=== PATIENT | female | born 1965 | race Caucasian/White ===

== ENCOUNTER → 2017-09-26 16:03 | Outpatient (CLI) | payer OTHER, SELFPAY ==
[2017-10-03 11:53] LABS: HPV Reflexed? NOT INDICATED
== END ==
PROVIDERS: Visit Provider Obstetrics & Gynecology
DX: Z12.4 Encounter for screening for malignant neoplasm of cervix (principal)
CPT/HCPCS: 88175; G0145

== ENCOUNTER → 2017-10-30 06:58 | Outpatient (CLI) | payer OTHER, SELFPAY ==
--- NOTE | 2017-10-30 07:05 | BI_ITS ---
MAMMOGRAPHY - BILATERAL SCREENING 3-D NICK SYNTHESIS REASON FOR EXAM: Female, 52 years old. Bilateral Screening 3-D tomosynthesis PERTINENT HISTORY: No significant family history. TECHNIQUE: 2-D mammograms and 3-D Nick synthesis of the breast (s) were performed. CAD was performed. COMPARISON: October 26, 2016. FINDINGS: The breast composition is heterogeneously dense that can obscure small breast masses. Scattered benign calcifications are seen. No dense spiculated masses or suspicious microcalcifications are identified. No architectural distortion is identified. There is no skin thickening or retraction. There has been no significant change since the prior study. BI/SCREENING MAMM (CAD), BILAT IMPRESSION: No mammographic signs of malignancy. Routine yearly mammograms recommended. ASSESSMENT CATEGORY: BIRADS Category 2: Benign. A letter regarding these results will be sent to the patient by the facility within 30 days. FOLLOW UP RECOMMENDATION: Yearly follow up mammogram recommended. (A) Approximately 10% of breast cancers are not detected by mammography. A normal mammogram should not delay biopsy of a clinically suspicious abnormality. Electronically Signed: Dayron Carroll MD at 8:58 EDT , Service support ,
== END ==
PROVIDERS: Family Provider Family Medicine; PCP Family Medicine; Visit Provider Obstetrics & Gynecology
DX: Z12.31 Encounter for screening mammogram for malignant neoplasm of breast (principal)
CPT/HCPCS: 77063; 77067

== ENCOUNTER → 2017-11-23 16:22 | Outpatient (CLI) | payer OTHER, SELFPAY ==
[2017-11-23 17:35] LABS: Hemoglobin A1c 5.7 % (4.2-6.3)
[2017-11-23 17:36] LABS: Absolute Lymphocyte Count 2.25 X10^3/ul (0.83-4.51); Absolute Neutrophil Count 6.9 X10^3/uL (2.0-7.7); Basophil# 0.02 X10^3/uL; Basophil% 0.2 % (0-1); Eosinophil# 0.13 X10^3/uL; Eosinophils% 1.3 % (0-5); Hematocrit 46.1 % (37-47); Hemoglobin 15.7 g/dl (12.0-15.0); Lymphocyte # 2.25 X10^3/ul (4.0); Lymphocyte % 21.8 % (19-41); Mean Corp Hgb Conc 34.1 g/gl (32-36); Mean Corpuscular Hgb 28.1 pg (27.0-32.0); Mean Corpuscular Volume 82.5 fL (81-99); Mean Platelet Vol. 10.7 fl (6.2-12.0); Monocyte# 0.97 X10^3/uL; Monocyte% 9.4 % (0-10); Neutrophil # 6.92 X10^3/uL (2.7-7.7); Neutrophil % 67.1 % (47-70); Platelet Count 269 K/mm3 (150-450); RBC Distribution Width CV 14.4 % (11.6-14.6); RBC Distribution Width SD 43.1 fl (35.1-43.9); Red Blood Count 5.59 M/mm3 (4.2-5.4); White Blood Count 10.3 K/mm3 (4.4-11.0)
[2017-11-23 17:42] LABS: POSITIVE COUNT NO; POSITIVE DIFFERENTIAL NO; POSITIVE MORPHOLOGY NO
[2017-11-23 19:29] LABS: ALB/GLOB Ratio 0.8 RATIO (0.9-2.4); AST(SGOT) 18 U/L (15-37); Alanine Aminotransfer ALT/SGPT 27 U/L (13-56); Albumin, Serum 3.7 g/dL (3.2-5.0); Alkaline Phosphatase 95 U/L (45-117); Anion Gap 7 (5-15); BUN 16 mg/dL (7-18); BUN/Creat Ratio 21.3 RATIO (10-20); Calcium,Total 9.1 mg/dL (8.5-10.1); Chloride 100 mmol/L (98-107); Creatinine, Serum 0.75 mg/dL (0.55-1.02); EST Glomerular Filtration Rate 85 mL/min (>60); Est Glom Filt Rate - Afr Amer 103 mL/min (>60); Globulin 4.5 g/dL (2.2-4.2); Glucose 106 mg/dL (74-106); Potassium 3.9 mmol/L (3.5-5.1); Protein, Total 8.2 g/dL (6.4-8.2); Sodium Level 137 mmol/L (136-145)
== END ==
PROVIDERS: Family Provider Family Medicine; PCP Family Medicine; Visit Provider Family Medicine
DX: I10 Essential (primary) hypertension (principal); R73.01 Impaired fasting glucose; E66.01 Morbid (severe) obesity due to excess calories; E87.6 Hypokalemia
CPT/HCPCS: 36415; 80053; 83036; 84439; 84443; 85025

== ENCOUNTER → 2018-02-20 14:07 | Outpatient (CLI) | payer OTHER, SELFPAY ==
[2018-02-20 16:05] LABS: T4 Free Direct 0.83 ng/dL (0.76-1.46); Thyroid Stim Hormone (TSH) 4.16 uIU/mL (0.358-3.74)
== END ==
PROVIDERS: Family Provider Family Medicine; PCP Family Medicine; Visit Provider Family Medicine
DX: R94.6 Abnormal results of thyroid function studies (principal)
CPT/HCPCS: 36415; 84439; 84443

== ENCOUNTER → 2018-10-23 17:34 | Outpatient (CLI) | payer OTHER, SELFPAY ==
--- NOTE | 2018-10-23 | EMB_PTH ---
PATIENT: LUCRECIA HOU LOC: [facility] U#:[id number] AGE/SX: 60/F ROOM: RE10/23/[address]: Dr. Guzman Reeder MD : 1965 BED: DIS: SPEC #: [id number] RECD: 10/23/18 17:24 STATUS: TIEN JESSIKA #: [id number] JUAN: 10/23/18 00:[address]: Guzman Reeder DEPT: SURGICAL PATHOLOGY RECD BY: Brice Oscar ENTERED: 10/24/18 14:21 SP TYPE: ENDOM BX/C KAYE DR: Dr. Holden Mendez MD Tissues: Endometrium, NOS Procedures: Surgery Specimen Level IV HEADER OPERATION: Endometrial biopsy PRE-OP DIAGNOSIS: N93.9 TISSUE SUBMITTED: Endometrial biopsy MICROSCOPIC DIAGNOSIS Endometrial biopsy: Mildly disordered proliferative endometrium. SJ:peterson 10/25/18 MICROSCOPIC DESCRIPTION Slides are reviewed. GROSS DESCRIPTION Received in fixative is one container labeled with the patient's name and designated EM biopsy. The specimen consists of multiple fragments of hemorrhagic mucoid tissue that in aggregate measure 2.5 x 2.5 x 0.1 cm. The specimen is totally submitted in one cassette. / SJ:peterson 10/24/18 TC:5 CPT: 84553
[2018-10-28 14:49] LABS: HPV Reflexed? NOT INDICATED
== END ==
PROVIDERS: Family Provider Family Medicine; PCP Family Medicine; Visit Provider Obstetrics & Gynecology
DX: Z12.4 Encounter for screening for malignant neoplasm of cervix (principal); N93.9 Abnormal uterine and vaginal bleeding, unspecified
CPT/HCPCS: 87624; 88175; 88305; G0145

== ENCOUNTER → 2018-11-19 07:24 | Outpatient (CLI) | payer OTHER, SELFPAY ==
--- NOTE | 2018-11-19 07:04 | BI_ITS ---
MAMMOGRAPHY - BILATERAL SCREENING REASON FOR EXAM: Female, 53 years old. Routine annual screening examination. PERTINENT HISTORY: Non-contributory. Remote right stereotactic breast biopsy. TECHNIQUE: Digital bilateral breast zeynep (3D mammographic acquisition) in the CC and MLO projections. 2-D mediolateral oblique (MLO) and craniocaudad (CC) views of both breasts were obtained. CAD: Full Field Digital Mammography with Computer Added Detection was performed. COMPARISON: Comparison is made with prior study dated October 30, 2017 and October 26, 2016. FINDINGS: Breast Composition: The breasts are heterogeneously dense, which may obscure small masses. There are no dominant masses or suspicious calcifications. Stable scattered bilateral calcifications. No other significant abnormalities are identified. There has been no significant change since the prior study. BI/SCREENING MAMM (CAD), BILAT IMPRESSION: Stable bilateral screening mammogram. Yearly follow-up mammogram recommended. (A) ASSESSMENT CATEGORY: BIRADS Category 2: Benign. A letter regarding these results will be sent to the patient by the facility within 30 days. Approximately 10% of breast cancers are not detected by mammography. A normal mammogram should not delay biopsy of a clinically suspicious abnormality. [id number] Electronically Signed: Thaddeus You, at 8:35 EDT , Service support ,
== END ==
PROVIDERS: Family Provider Family Medicine; PCP Family Medicine; Referring Provider Obstetrics & Gynecology; Visit Provider Obstetrics & Gynecology
DX: Z12.31 Encounter for screening mammogram for malignant neoplasm of breast (principal)
CPT/HCPCS: 77063; 77067

== ENCOUNTER → 2019-04-21 09:15 | Outpatient (CLI) | payer OTHER, SELFPAY ==
--- NOTE | 2019-04-21 09:19 | RAD_ITS ---
STUDY: X-RAY - PELVIS AND LEFT HIP REASON FOR EXAM: Female, 54 years old. Left hip pain TECHNIQUE: 2 views of the pelvis and hip. COMPARISON: None. FINDINGS: There is a non-specific bowel gas pattern. Normal visualized soft tissue structures. Degenerative lower lumbar changes. Normal bilateral iliac wings, sacroiliac joints and visualized sacrum. Normal bilateral superior and inferior pubic rami. Normal pubic symphysis. Normal bilateral ischial tuberosities. Normal visualized femoral head. Normal acetabulum. Normal hip joint. RAD/HIP, UNI W/ Pelvis 2-3 Views IMPRESSION: Normal x-ray examination of the pelvis and hip. Electronically Signed: Kana Veloz MD at 16:56 EDT Tel , Service support ,
== END ==
PROVIDERS: Family Provider Family Medicine; PCP Family Medicine; Referring Provider Family Medicine; Visit Provider Family Medicine
DX: M25.552 Pain in left hip (principal)
CPT/HCPCS: 73502

== ENCOUNTER 2019-07-07 17:00 | Outpatient (RCR) | payer OTHER, SELFPAY ==
[2019-05-22 08:23] VITALS: BMI 41.8
--- NOTE | 2019-06-04 08:00 | HP.PTEVAL_ITS ---
Patient's Visit Information LUCRECIA HOU is a 54 year old F referred to Physical Therapy by Gladys Sullivan DO with a diagnosis of L hip pain. Date of Evaluation: 06/04/19 Physical Therapist: Karl Everett PT, ATC - Visit Plan Frequency: 2x /Week Duration: 4 Weeks Plan: L hip stretching and strengthening, core stab - Subjective Findings: Pt reports she has had L hip pain for 6 mos. Pt reports she had an x ray, which revealed no arthritis. Pt reports she might have to get a shot from pain management which has been discussed previously with her orthopedic Dr. Pt reports L hip just hurts, but it never clicks/pops/locksup/gives out. Pt reports sleep difficulty secondary to pain. Pt reports she works at the [employer] which requires her to be on her feet a lot throughout the day. No PMH x of L hip complications. Pt reports stair negotiation causes increased pain. 6/10 pain at rest, 9/10 at worst. - Pain L hip pain Pain Intensity (Out of 10): 6 Pain Intensity Range: 9 - Objective Neuro: B LE sensation is WNL to light touch. B patellar reflex= 2/3. MMT: B LE's are grossly 4/5 throughout. ROM: B LE's are WFL. Special tests: pos fabers test. Gait: no sig deviations at this time - Goals Goal 1:: Decrease L hip pain x 50% to aid with sleep Goal Time Frame: 2-4 Weeks Goal 2:: Increase L hip strength x 1 grade to aid with stair negotiation Goal Time Frame: 2-4 Weeks Goal 3:: I with HEP Goal Time Frame: 2-4 Weeks - Rehabilitation Potential Physical Therapy Diagnosis: L hip pain, weakness, and limited ROM secondary to degenerative changes in the L hip Rehabilitation Potential: Good - Anticipated Interventions Patient/Client Instruction: Educate patient on: Condition, Plan of Care For the Purpose of:: To improve self management Therapeutic Exercise to Include: Strength training, Endurance training, Balance training, Flexibilty training, Dynamic Lumbar Stabilization For the Purpose of:: To decrease pain, To increase ROM, To improve muscle performance and motor function Thank you for the opportunity to evaluate your patient. For Medicare and Medicare HMO plans, please review the plan of care and approve it. It will need to be FAXED BACK to us at [phone] for Medicare purposes. For Medicare only, by signing this I certify the plan of care. Please let me know if there are questions or concerns regarding this plan of care. Physician Signature: Date:
--- NOTE | 2019-07-07 17:27 | HP.PTDCSUM ---
HP - PT D/C Summary It has been my pleasure to treat LUCRECIA HOU under orders from Gladys Sullivan DO, for the diagnosis of L hip pain for a total of 9 visit(s). Discharge Date: Please see the following information for a summary of their discharge status. - Subjective Subjective: No pain this date. Pt is ready for discharge - Pain L hip pain Pain Intensity (Out of 10): 0 - Overall Improvement % Improvement: 95 - Objective Objective/Function: L hip pain 0/10 at this time. I with HEP. L hip strength 5/5 throughout. Rx goals achieved - Goals Goal 1:: Decrease L hip pain x 50% to aid with sleep Goal Progress: Goal Met Goal 2:: Increase L hip strength x 1 grade to aid with stair negotiation Goal Progress: Goal Met Goal 3:: I with HEP Goal Progress: Goal Met - Plan Plan: Discharge - D/C Information If there are questions or concerns regarding this patient's physical therapy, please feel free to call me at [phone]. Thank you for the referral of this patient. Sincerely, Karl Everett, PT, ATC
== END 2019-07-07 19:00 | disposition home or self-care (01) ==
LOC: PT 17:00
PROVIDERS: Family Provider Family Medicine; PCP Family Medicine; Referring Provider Orthopaedic Surgery; Visit Provider Orthopaedic Surgery
DX: M25.552 Pain in left hip (principal); M24.859 Other specific joint derangements of unspecified hip, not elsewhere classified
CPT/HCPCS: 97110; 97161; 97530

== ENCOUNTER → 2020-03-11 07:35 | Outpatient (CLI) | payer OTHER, SELFPAY ==
[2019-05-22 08:23] VITALS: BMI 41.8
--- NOTE | 2020-03-11 07:38 | BI_ITS ---
MAMMOGRAPHY - BILATERAL SCREENING REASON FOR EXAM: Female, 55 years old. Routine annual screening examination. PERTINENT HISTORY: Non-contributory. Remote right stereotactic breast biopsy. TECHNIQUE: Digital bilateral breast nick (3D mammographic acquisition) in the CC and MLO projections. 2-D mediolateral oblique (MLO) and craniocaudad (CC) views of both breasts were obtained. CAD: Full Field Digital Mammography with Computer Added Detection was performed. COMPARISON: Comparison is made with prior study dated 11/19/2018 and 10/30/2017. FINDINGS: Breast Composition: The breasts are heterogeneously dense, which may obscure small masses. There are no dominant masses or suspicious calcifications. Stable benign-appearing bilateral axillary lymph nodes. No other significant abnormalities are identified. There has been no significant change since the prior study. BI/SCREEN MAMM (CAD) W/NICK BILAT IMPRESSION: Stable bilateral screening mammogram. Yearly follow-up mammogram recommended. (A) ASSESSMENT CATEGORY: BIRADS Category 2: Benign. A letter regarding these results will be sent to the patient by the facility within 30 days. Approximately 10% of breast cancers are not detected by mammography. A normal mammogram should not delay biopsy of a clinically suspicious abnormality. [id number] Electronically Signed: Thaddeus You, at 9:31 EDT , Service support ,
== END ==
PROVIDERS: PCP Family Medicine; Referring Provider Family Medicine; Visit Provider Family Medicine
DX: Z12.31 Encounter for screening mammogram for malignant neoplasm of breast (principal)
CPT/HCPCS: 77063; 77067

== ENCOUNTER → 2020-07-23 11:30 | Outpatient (CLI) | payer OTHER, SELFPAY ==
[2019-05-22 08:23] VITALS: BMI 41.8
[2020-07-23 14:59] LABS: Absolute Lymphocyte Count 1.69 X10^3/uL (0.83-4.51); Absolute Neutrophil Count 3.3 X10^3/uL (2.0-7.7); Basophil# 0.05 X10^3/uL; Basophil% 0.9 % (0-1); Eosinophil# 0.12 X10^3/uL; Eosinophils% 2.1 % (0-5); Hemoglobin 14.9 g/dL (12.0-15.0); Lymphocyte # 1.69 X10^3/ul (4.0); Mean Corp Hgb Conc 32.4 g/dL (32-36); Mean Corpuscular Hgb 26.9 pg (27.0-32.0); Mean Corpuscular Volume 83.2 fL (81-99); Mean Platelet Vol. 10.9 fl (6.2-12.0); Monocyte# 0.62 X10^3/uL; Monocyte% 10.6 % (0-10); NRBC Flagged by Analyzer 0 % (0-5); Neutrophil # 3.33 X10^3/uL (2.7-7.7); Neutrophil % 57.1 % (47-70); Platelet Count 252 K/mm3 (150-450); RBC Distribution Width CV 14.6 % (11.6-14.6); RBC Distribution Width SD 43.9 fl (35.1-43.9); Red Blood Count 5.53 M/mm3 (4.2-5.4); White Blood Count 5.8 K/mm3 (4.4-11.0)
[2020-07-23 15:18] LABS: Anion Gap 8 (5-15); BUN 16 mg/dL (7-18); BUN/Creat Ratio 20.7 RATIO (10-20); Chloride 101 mmol/L (98-107); Cholesterol 174 mg/dL (200); Creatinine, Serum 0.77 mg/dL (0.55-1.02); EST Glomerular Filtration Rate 82 mL/min (>60); Est Glom Filt Rate - Afr Amer 99 mL/min (>60); Glucose 99 mg/dL (74-106); High Density Lipoprotein 46 mg/dL; Potassium 3.4 mmol/L (3.5-5.1); Sodium Level 138 mmol/L (136-145); T4 Free Direct 1.11 ng/dL (0.76-1.46); Thyroid Stim Hormone (TSH) 4.26 uIU/mL (0.358-3.74); Triglycerides 220 mg/dL; Very Low Density Lipoprotein 44 mg/dL (5-40)
== END ==
PROVIDERS: PCP Family Medicine; Visit Provider Family Medicine
DX: I10 Essential (primary) hypertension (principal); R73.01 Impaired fasting glucose; R94.6 Abnormal results of thyroid function studies
CPT/HCPCS: 36415; 80048; 80061; 84439; 84443; 85025

== ENCOUNTER → 2021-04-07 14:20 | Outpatient (CLI) | payer OTHER, SELFPAY | PROVIDERS: PCP Family Medicine; Referring Provider Physician Assistant; Visit Provider Physician Assistant | DX: Z11.52 Encounter for screening for COVID-19 (principal) | CPT/HCPCS: 87635; U0005; U0003 ==

== ENCOUNTER → 2021-05-09 16:39 | Outpatient (CLI) | payer OTHER, SELFPAY ==
[2021-05-13 15:32] LABS: HPV Reflexed? NOT INDICATED
== END ==
PROVIDERS: PCP Family Medicine; Visit Provider Obstetrics & Gynecology
DX: Z12.4 Encounter for screening for malignant neoplasm of cervix (principal)
CPT/HCPCS: 88175; G0145

== ENCOUNTER → 2022-11-30 | Outpatient (CLI) | payer OTHER, SELFPAY ==
--- NOTE | 2022-11-30 07:30 | BI_ITS ---
MAMMOGRAPHY - BILATERAL SCREENING REASON FOR EXAM: Female, 57 years old. Routine annual screening examination. PERTINENT HISTORY: Remote right stereotactic breast biopsy. No reported personal or family history of breast cancer. TECHNIQUE: Digital bilateral breast nick (3D mammographic acquisition) in the CC and MLO projections. 2-D mediolateral oblique (MLO) and craniocaudad (CC) views of both breasts were obtained. CAD: Full Field Digital Mammography with Computer Added Detection was performed. COMPARISON: Screening mammogram from 03/30/2021, 03/11/2020. FINDINGS: Breast Composition: The breasts are heterogeneously dense, which may obscure small masses. There are no dominant masses or suspicious calcifications. Stable scattered benign-appearing bilateral breast calcifications. No other significant abnormalities are identified. There has been no significant change since the prior study. BI/SCRN MAMM (CAD)W/NICK BILAT IMPRESSION: Stable bilateral screening mammogram. Yearly follow-up mammogram recommended. (A) ASSESSMENT CATEGORY: BIRADS Category 2: Benign. A letter regarding these results will be sent to the patient by the facility within 30 days. Approximately 10% of breast cancers are not detected by mammography. A normal mammogram should not delay biopsy of a clinically suspicious abnormality. Electronically Signed: Roberto Ward DO at 17:05 EDT ,
== END | disposition home or self-care (01) ==
LOC: OPBI 07:28
PROVIDERS: PCP Family Medicine; Referring Provider Nurse Practitioner Women's Health; Visit Provider Nurse Practitioner Women's Health
DX: Z12.31 Encounter for screening mammogram for malignant neoplasm of breast (principal)
CPT/HCPCS: 77063; 77067

== ENCOUNTER → 2023-01-03 | Outpatient (CLI) | payer OTHER, SELFPAY ==
[2023-01-03 12:32] LABS: Absolute Lymphocyte Count 1.76 X10^3/uL (0.83-4.51); Absolute Neutrophil Count 5.8 X10^3/uL (2.0-7.7); Basophil# 0.05 X10^3/uL; Basophil% 0.6 % (0-1); Eosinophil# 0.17 X10^3/uL; Hematocrit 41.4 % (37-47); Hemoglobin 13.5 g/dL (12.0-15.0); Lymphocyte # 1.76 X10^3/ul (0.83-4.51); Lymphocyte % 20.3 % (19-41); Mean Corp Hgb Conc 32.6 g/dL (32-36); Mean Corpuscular Hgb 27.4 pg (27.0-32.0); Mean Corpuscular Volume 84.1 fL (81-99); Monocyte# 0.86 X10^3/uL; Monocyte% 9.9 % (0-10); NRBC Flagged by Analyzer 0 % (0-5); Neutrophil # 5.77 X10^3/uL (2.7-7.7); Neutrophil % 66.7 % (47-70); Platelet Count 308 K/mm3 (150-450); RBC Distribution Width CV 14.5 % (11.6-14.6); RBC Distribution Width SD 43.8 fl (35.1-43.9); Red Blood Count 4.92 M/mm3 (4.2-5.4); White Blood Count 8.7 K/mm3 (4.4-11.0)
[2023-01-03 13:38] LABS: ALB/GLOB Ratio 0.7 RATIO (0.9-2.4); AST(SGOT) 19 U/L (15-37); Alanine Aminotransfer ALT/SGPT 24 U/L (13-56); Albumin, Serum 3.3 g/dL (3.2-5.0); Alkaline Phosphatase 107 U/L (45-117); Anion Gap 7 (5-15); BUN 14 mg/dL (7-18); BUN/Creat Ratio 21.5 RATIO (10-20); Calcium,Total 9.3 mg/dL (8.5-10.1); Chloride 101 mmol/L (98-107); Creatinine, Serum 0.65 mg/dL (0.55-1.02); EST Glomerular Filtration Rate 99 mL/min (>60); Est Glom Filt Rate - Afr Amer 119 mL/min (>60); Globulin 4.5 g/dL (2.2-4.2); Glucose 140 mg/dL (74-106); Protein, Total 7.8 g/dL (6.4-8.2); Sodium Level 138 mmol/L (136-145); T4 Free Direct 0.99 ng/dL (0.76-1.46)
== END | disposition home or self-care (01) ==
LOC: BFHLAB 10:00
PROVIDERS: PCP Nurse Practitioner Family; Referring Provider Nurse Practitioner Family; Visit Provider Nurse Practitioner Family
DX: Z00.00 Encounter for general adult medical examination without abnormal findings (principal); I10 Essential (primary) hypertension; R79.89 Other specified abnormal findings of blood chemistry
CPT/HCPCS: 36415; 80053; 84439; 84443; 85025

== ENCOUNTER 2023-02-01 09:00 | Outpatient (RCR) | payer OTHER, SELFPAY ==
[2023-01-16 08:24] VITALS: BP 120/78; PULSE 85; RESP 16; TEMP 36.1; BMI 41.8
--- NOTE | 2023-01-16 14:45 | HP.PCM_ITS ---
History of Present Illness Date of Service: 01/16/23 Chief Complaint: Diabetic foot ulceration, right metatarsal-phalangeal joint, plantar surface History of Wound: This is a 58-year-old, morbidly-obese, diabetic female who presents with a large ulceration on the right great toe. The ulceration is located at the right metatarso-phalangeal joint, on the plantar surface. It has been present for approximately 4 months. According to the patient, it originated as a callus, and she ripped off the skin. She has been using Watkin's salve topically. The patient does not see a hotel recreational facilities manager on a regular basis. Her BMI is 41.8. She denies a history of smoking. She also denies a history of myocardial infarction, congestive heart failure, cerebrovascular accident, pulmonary disease, renal disease, and thyroid disease. Most recent hemoglobin A1c was 7.0 in September,. Laboratory studies obtained recently, dated January 03, 2023, are as follows: White blood count 8.7, hemoglobin 13.5, hematocrit 41.4, platelets 308,000, sodium 138, potassium 4.0, chloride 101, BUN 14, creatinine 0.65, gluco se 140, calcium 9.3, bilirubin 0.40, AST 19, ALT 24, alkaline phosphatase 107, protein 7.8, albumin 3.3. [facility] Medical History Diabetes mellitus Diabetic foot ulcer associated with diabetes mellitus due to underlying condition Hyperlipidemia Hypertension Morbid obesity with BMI of 40.0-44.9, adult Peripheral neuropathy Home Medications calcium carbonate 600 mg-vitamin D3 20 mcg (800 unit) chewable tablet (Caltrate 600 plus D) 1 tab PO DAILY 05/22/19 [History Last Taken Unknown] hydrochlorothiazide 25 mg tablet 25 mg PO DAILY 05/22/19 [History Last Taken Unknown] metoprolol tartrate 25 mg tablet 25 mg PO BID 05/22/19 [History Last Taken Unknown] tabzsvir-lew-tnddv ac 400 mcg-calcium carb 500 mg-vit K1 20 mcg tablet 1 tab PO DAILY 05/22/19 [History Last Taken Unknown] potassium chloride 20 mEq tablet,extended release(part/cryst) (Klor-Con M) 20 meq PO DAILY 05/22/19 [History Last Taken Unknown] simvastatin 20 mg tablet 20 mg PO QHS 05/22/19 [History Last Taken Unknown] Allergy/AdvReac Type Severity Reaction Status Date / Time No Known Allergies Allergy Verified 01/16/23 08:45 Social History Smoking Status: Never smoker Vital Signs Vital Signs Vital Signs: 01/16/23 08:24 Temperature 96.9 F L Temperature Source Temporal Pulse Rate 85 Respiratory Rate 16 Blood Pressure 120/78 Blood Pressure Mean 92 Blood Pressure Source Monitor Blood Pressure Position Sitting Blood Pressure Location Left Arm Oxygen Delivery Method Room Air Weight Weight: 244 lb Body Mass Index (BMI) 41.8 Physical Exam Const alert, oriented x3, no apparent distress and well nourished Constitutional Narrative: The patient is morbidly obese. General Appearance: cooperative, comfortable and well developed Orientation / Consciousness: awake, oriented to person, oriented to place and oriented to time Exam Limitations: no limitations HEENT normocephalic, head/scalp atraumatic and hearing grossly normal bilaterally Head and Scalp: normal to inspection, normocephalic and atraumatic External Ear: external ears normal Eyes PERRL and EOMs intact bilaterally General Eye: normal appearance of both eyes Resp normal respiratory effort, normal air movement, no retractions and no use of accessory muscles Effort and Inspection: able to speak in complete sentences Extremity no calf tenderness General Extremity: Negative for clubbing or cyanosis Skin Wound Narrative: A large ulceration is noted on the plantar aspect of the right great toe, at the metatarso-phalangeal joint. Dimensions are documented elsewhere. There is no obvious sign of infection or cellulitis. However, swab cultures were obtained for aerobic and anaerobic bacterial growth. A large amount of callus is noted to surround the open ulceration. There is a small amount of bioburden. Neuro oriented x3, CN's II-XII intact bilaterally and moves all extremities Sensorium / Orientation: awake, alert, oriented to person, oriented to place and oriented to time Psych Appearance: grossly normal and appropriate Attitude: calm Activity / Motor Behavior: appropriate eye contact Speech: normal speech Mood & Affect: euthymic mood Thought Process: normal thought process Thought Content: normal thought content Attention / Concentration: attention grossly intact Debridement Note Debridement Note Wound debrided: Right diabetic foot ulceration, right great toe. Laterality: Right Type of Debridement: Excisional debridement Anesthesia Used: 5% Lidocaine Gel Depth: Down to and including healthy tissue and in the subcutaneous layer Percentage of wound debrided: 100 Instrument Used: 5mm curette Tissue Removed: Bioburden and nonviable tissue; callus Severity: Fat Layer Exposed Amount of bleeding with debridement: Mild Bleeding Controlled with: Compression and gauze Patient tolerated procedure: Patient tolerated procedure well Debridement Free Text: An excisional debridement was performed, which was well- tolerated by the patient. A large amount of callus was noted surrounding the ulceration. Effort was made to remove as much of the callus as possible. Swab cultures were obtained for aerobic and anaerobic bacterial growth. Post-Debridement Measurements and Additional Note: Post-Debridement Measurements/Treatment WC - Nurse 1 - General Ulcer Assessment Start: 01/16/23 08:24 Freq: Status: Active Protocol: JAXSON Activity Type Activity Date Activity User E-sign Co-sign Detail Recorded Client Recorded Date Recorded By Document 01/16/23 08:24 MW [id number] 01/16/23 08:42 MW 01/16/23 08:24 WC - Today's Visit Information Type of service Initial Visit Arrival Mode Ambulatory Transfer Assistance None Accompanied by self Patient Identification Verified (Name & Yes ) Patient Requires Transmission-Based No Precautions Safety Precautions NA Height and Weight Height 5 ft 4 in Weight 244 lb Weight in Pounds 244.0 lbs Body Mass Index (BMI) 41.8 BMI Classification Obese BSA - Jose Antonio 2.13 Vital Signs Temperature (97.8 F-99.1 F) 96.9 F L Temperature Source Temporal Pulse Rate (60-100) 85 Pulse Location Monitor Respiratory Rate (12-18) 16 Respiratory rate source Observation Oxygen Delivery Method Room Air Blood Pressure (90/60-120/80) 120/78 Blood Pressure Mean 92 Source Monitor Position Sitting Blood Pressure Location Left Arm History Since Last Visit- (Skip if this is Patient's initial visit) Left Footwear Regular Shoe Right Footwear Regular Shoe Pain Scale: 0-10 Numeric Is Patient Pain Free? Yes Lower Extremity Assessment/ Foot Assessment/ Toe Nail Assessment Right -Posterior Tibial Palpable Yes -Posterior Tibial Doppler Multiphasic -Dorsalis Pedis Palpable Yes -Dorsalis Pedis Doppler Monophasic -Extremity Color Normal -Hair Growth on Legs No -Hair Growth on Toes No -Temperature of Extremity Warm -Capillary Refill Less than 3 Seconds -Dependent Rubor No -Blanched when Elevated No -Lipodermatosclerosis No -Other Deformity No -Prior Foot Ulcer No -Charcot Joint No -Prior Amputation No -Thick No -Discolored No -Deformed No -Improper Length & Hygeine No Left -Posterior Tibial Palpable Yes -Posterior Tibial Doppler Multiphasic -Dorsalis Pedis Palpable Yes -Dorsalis Pedis Doppler Multiphasic -Extremity Color Normal -Hair Growth on Legs No -Hair Growth on Toes No -Temperature of Extremity Warm -Capillary Refill Less than 3 Seconds -Dependent Rubor No -Blanched when Elevated No -Lipodermatosclerosis No -Other Deformity No -Prior Foot Ulcer No -Charcot Joint No -Prior Amputation No -Thick No -Discolored No -Deformed No -Improper Length & Hygeine No Communication Assessment Preferred language [place] Able to Read Yes Able to Write Yes Communication Tools None Caregiver Communication Skills No Impairment Impairment Right Hearing Abillity Normal Left Hearing Abillity Normal Visual Assistive Devices Glasses Teaching Assessment Preferences Verbal,Written, Audio/Visual, Demonstration Barriers to Learning None Readiness To Learn Excellent Willingness to Engage in Self Management High Activies Readiness to Engage in Self Management High Activities Anxiety Level Calm Cooperation Cooperative Perception Coherent Interest in Health Problem Asks Questions Education Importance Acknowledges Need Does Patient Smoke tobacco or other Yes substances Smoking Status Never smoker Is Patient Diabetic Yes Functional Assessment Recent Decline in Ability to Perform Denies Any Declines Assistive Device With Patient No Culture/Denominational/Conveyor Line Battery Charger Cultural/Denominational Needs that may affect No Treatment Plan Would you allow our hospital repair welder to No meet you for the purpose of spiritual/ emotional support? Conveyor Line Battery Charger to contact place of gnosticism No Teaching: Wound Center *Welcome to the Wound Center -Person Taught Patient -Teaching Method Demonstration -Response to teaching Verbalize understanding WC - Nurse 1 - General Ulcer Measurement Start: 01/16/23 08:24 Freq: Status: Active Protocol: Activity Type Activity Date Activity User E-sign Co-sign Detail Recorded Client Recorded Date Recorded By Document 01/16/23 08:24 MW [id number] 01/16/23 08:42 MW 01/16/23 08:24 Wound Center Nurse 1 #1 right plantar foot -Combined with other wound No -Current Size (cm) - Length 2.5 -Current Size (cm) - Width 2.5 -Current Size (cm) - Depth 0.3 -Total Square Cm 6.25 -Date of Last Picture (Recall this 01/16/23 field) -Photo Taken Yes -Epithelialization Small 1-33% -Tunneling No -Undermining/Tunneling No -Circular Undermining No -Exudate Amt Medium -Exudate Type Serosanguineous -Wound Margin Thickened -Granulation Amt Large (67-100%) -Granulation Quality [place] -Slough/Fibrin Yes -Necrosis Amt Small (1-33%) -Necrotic Tissue Type Adherent Slough -Structure Exposed N/A -Texture (Kelsie-wound Skin Appearance) Assessed,Callus ,Localized Edema -Moisture (Kelsie-wound Skin Appearance) Assessed,Dry/ Scaly -Color (Kelsie-wound Skin Appearance) No Abnormality, Assessed -Temperature (Kelsie-wound Skin No Abnormality Appearance) (Pt Warm) -Tenderness on Palpation (Kelsie-wound Yes Skin Appearance) -Ulcer Cleansing Rinsed/ Irrigated with Saline -Foul Odor after Cleansing No -Anesthetic Used 5% Lidocaine Gel Lower Limb Edema Present Yes Right Calf (cm) 46.5 Right Ankle (cm) 26.5 Left Calf (cm) 42.5 Left Ankle (cm) 23.5 WC - Nurse 2 - General Ulcer CM Notes Start: 01/16/23 08:24 Freq: Status: Active Protocol: Activity Type Activity Date Activity User E-sign Co-sign Detail Recorded Client Recorded Date Recorded By Document 01/16/23 11:38 PL [id number] 01/16/23 11:39 PL 01/16/23 11:38 Wound Center Nurse 2 #1 right plantar foot -Time 08:59 -Correct Patient Yes -Correct Side, Site, Position Yes -Correct Procedure Yes -Procedure Performed Yes -Type of Procedure Debridement -Clinical Debridement Subcutaneous -Tissue Removed Subcutaneous -Post Debridement (cm) - Length 2.5 -Post Debridement (cm) - Width 2.5 -Post Debridement (cm) - Depth 0.3 -Total Square (Post) (cm) 6.25 -Area of Debridement (cm) - Length 2.5 -Area of Debridement (cm) - Width 2.5 -Total Square (Area) (cm) 6.25 -Tunneling No -Undermining/Tunneling No -Circular Undermining No -Wound/Ulcer Outcome Not Healed -Ulcer Cleansing Rinsed/ Irrigated with Saline -Foul Odor after Cleansing No -Bioengineered Tissue No -Bleeding Controlled with Pressure -Treatment Response Procedure Tolerated Well -Debridement - Subq, 1st 20sq cm Yes Pain Scale: 0-10 Numeric Is Patient Pain Free? Yes WC - Nurse 3 - General Ulcer D/C NN Start: 01/16/23 08:24 Freq: Status: Active Protocol: Activity Type Activity Date Activity User E-sign Co-sign Detail Recorded Client Recorded Date Recorded By Document 01/16/23 09:26 MW [id number] 01/16/23 09:29 MW 01/16/23 09:26 Wound Care Center Nurse 3 #1 right plantar foot -Ulcer Cleansing Rinsed/ Irrigated with Saline -Foul Odor after Cleansing No -Negative Pressure Wound Therapy N/A -Primary Dressing Applied Hysept ($) -Primary Dressing Covered/Secured with Dry Gauze, Secured with Tape Treatment Response Procedure Tolerated Well Pain Scale: 0-10 Numeric Is Patient Pain Free? Yes Teaching: Wound Center Dressing Your Wound -Person Taught Patient -Teaching Method Discussion, Demonstration -Response to teaching Verbalize understanding WC - Visit Discharge Discharge Condition Stable Ambulatory Status Ambulatory Transportation Private Auto Accompanied by self Medication Reconcilliation completed & No provided to patient/care provider Clinical Summary of Care Provided Yes Assessment/Plan Assessment/Plan (1) Diabetic foot ulcer associated with diabetes mellitus due to underlying condition: CODE(S): E08.621 - Diabetes mellitus due to underlying condition with foot ulcer; L97.509 - Non-pressure chronic ulcer of other part of unspecified foot with unspecified severity QUALIFIERS: Diabetic foot ulcer location: toe Laterality: right Non-pressure ulcer stage: with fat layer exposed Qualified Code(s): E08.621 - Diabetes mellitus due to underlying condition with foot ulcer; L97.512 - Non- pressure chronic ulcer of other part of right foot with fat layer exposed (2) Hypertension: CODE(S): I10 - Essential (primary) hypertension (3) Diabetes mellitus: CODE(S): E11.9 - Type 2 diabetes mellitus without complications (4) Peripheral neuropathy: CODE(S): G62.9 - Polyneuropathy, unspecified (5) Hyperlipidemia: CODE(S): E78.5 - Hyperlipidemia, unspecified (6) Morbid obesity with BMI of 40.0-44.9, adult: CODE(S): E66.01 - Morbid (severe) obesity due to excess calories; Z68.41 - Body mass index [BMI] 40.0-44.9, adult PLAN: Plan This is a 58-year-old morbidly obese diabetic female who presents with a diabetic foot ulceration on the right foot. It is located at the right metatarso-phalangeal joint. It is rather large in size, and extends into the subcutaneous adipose layer. Swab cultures have been obtained for aerobic and anaerobic bacterial growth. Results will be awaited, and further management will be based upon culture results. Offloading measures have been discussed with the patient. It is likely that she will require diabetic shoes or tailored inserts to her existing shoes. We are to seek a consult with the Podiatry service to assist in management. Offloading measures have been explained in detail. An x-ray will be obtained of the right foot to determine whether the ulceration extends into underlying bony structures. We are to obtain a noninvasive lower extremity arterial study, to assess arterial circulation in the lower extremities. Collagen hydrogel will be initiated for application topically. The patient has been advised of the appropriate means of application. The patient return for evaluation in 1 week, with arrangements for the patient to be evaluated by the Podiatry service for further management recommendations. The patient has been advised to optimize her glycemic control, optimize her nutritional intake, and to lose weight. Total time: 52 minutes
--- NOTE | 2023-01-17 11:25 | RAD_ITS ---
STUDY: X-RAY - RIGHT FOOT CLINICAL: Female, 58 years old. NON HEALING WOUND TECHNIQUE: 3 view(s) of the foot. COMPARISON: None. FINDINGS: There is a dorsal talar neck ?beak?. Large heel spur is present. Degenerative subtalar, talonavicular, calcaneocuboid, tarsal and tarsometatarsal articulations. There is demineralization of the metatarsi. There is degenerative arthrosis of the metatarsophalangeal joint of the hallux . Normal tibial and fibular sesamoid bones. There is degenerative arthrosis of the interphalangeal joint of the great toe. Normal phalanges of the great toe. Normal second through fifth metatarsophalangeal joints. Degenerative interphalangeal joints and phalanges of the lesser toes. The soft tissue structures are unremarkable. RAD/Foot min 3 Views IMPRESSION: Degenerative changes as above with no evidence of focal fracture. Electronically Signed: Pedro Luis Kohler DO at 17:24 EDT ,
--- NOTE | 2023-01-17 11:26 | ART_ITS ---
Reason For Study: NON-HEALING WOUND Procedure A bilateral lower extremity continuous wave Doppler with analog waveform analysis,segmental pressures,and ankle brachial indexes without exercise. Left Segmental Pressures Left brachial= 171mmHg. Left posterior tibial artery = 179mmHg. Left dorsalis pedis artery = 194mmHg. Left digit = 156 mmHg. The left posterior tibial artery waveforms are triphasic. The left dorsalis pedis waveforms are triphasic. Right Segmental Pressures Right brachial= 161mmHg. Right posterior tibial artery = 188mmHg. Right dorsalis pedis artery = 199mmHg. Right digit = >254 mmHg. The right posterior tibial artery waveforms are triphasic. The right dorsalis pedis waveforms are triphasic. Indices The right resting ankle brachial index is 1.16. The right ankle brachial index by the posterior tibial artery is 1.10. The right ankle brachial index by the dorsalis pedis is 1.16. The right digital-brachial index is -NC-. The left resting ankle brachial index is 1.13. The left ankle brachial index by the posterior tibial artery is 1.05. The left ankle brachial index by the dorsalis pedis is 1.13. The left digital-brachial index is 0.91. VL/Lower Ext Art Exam w/o Exercis Interpretation Summary Triphasic Doppler waveforms are noted at ankle level bilaterally. Pulse-volume recordings appear diminished at ankle and digital levels on the left, but satisfactory at all oth er levels bilaterally. Resting ankle-brachial indices are normal bilaterally. The right d igital-brachial index could not be determined due to the non-compressibility of the vasculature at di gital level on the right. The left digital-brachial index is normal. There is evidence of arterial calcification at digital level on the right. Ther e is no evidence of significant arterial occlusive disease in the lower extremities bilaterally. Ordering Physician: Lopez Nelson Referring Physician: Alis Mo Performed By: Justina Vazquez RVT, RDCS
[2023-01-25 08:47] VITALS: TEMP 35.6; BMI 41.8
--- NOTE | 2023-01-25 10:20 | PCM.WC.HP ---
History of Present Illness Date of Service: 01/25/23 Chief Complaint: Diabetic foot ulceration, right metatarsal-phalangeal joint, plantar surface History of Wound: This is a 58-year-old, morbidly-obese, diabetic female who presents with a large ulceration on the right great toe. The ulceration is located at the right first metatarsophalangeal joint, on the plantar surface. It has been present for approximately 4 months. According to the patient, it originated as a callus, and she ripped off the skin. She has been using Watkin's salve topically. The patient does not see a cook ship on a regular basis. Her BMI is 41.8. She denies a history of smoking. She also denies a history of myocardial infarction, congestive heart failure, cerebrovascular accident, pulmonary disease, renal disease, and thyroid disease. Most recent hemoglobin A1c was 7.0 in September,. Laboratory studies obtained recently, dated January 03, 2023, are as follows: White blood count 8.7, hemoglobin 13.5, hematocrit 41.4, platelets 308,000, sodium 138, potassium 4.0, chloride 101, BUN 14, creatinine 0.65, glucose 140, calcium 9.3, bilirubin 0.40, AST 19, ALT 24, alkaline phosphatase 107, protein 7.8, albumin 3.3. FOR[facility]LY [facility] Medical History Diabetes mellitus Diabetic foot ulcer associated with diabetes mellitus due to underlying condition Hyperlipidemia Hypertension Morbid obesity with BMI of 40.0-44.9, adult Peripheral neuropathy Home Medications calcium carbonate 600 mg-vitamin D3 20 mcg (800 unit) chewable tablet (Caltrate 600 plus D) 1 tab PO DAILY 05/22/19 [History Last Taken Unknown] hydrochlorothiazide 25 mg tablet 25 mg PO DAILY 05/22/19 [History Last Taken Unknown] metoprolol tartrate 25 mg tablet 25 mg PO BID 05/22/19 [History Last Taken Unknown] wujkzoai-fcj-fkufe ac 400 mcg-calcium carb 500 mg-vit K1 20 mcg tablet 1 tab PO DAILY 05/22/19 [History Last Taken Unknown] potassium chloride 20 mEq tablet,extended release(part/cryst) (Klor-Con M) 20 meq PO DAILY 05/22/19 [History Last Taken Unknown] simvastatin 20 mg tablet 20 mg PO QHS 05/22/19 [History Last Taken Unknown] Allergy/AdvReac Type Severity Reaction Status Date / Time No Known Allergies Allergy Verified 01/16/23 08:45 Social History Smoking Status: Never smoker ROS Constitutional Constitutional: Denies chills, fatigue or fever(s) Eyes Eyes: Denies blurry vision, double vision or erythema ENT HEENT: Denies dysphagia, nasal congestion or sore throat Cardiovascular Cardiovascular: Denies chest pain, claudication or palpitations Respiratory/Chest Respiratory/Chest: Denies cough, shortness of breath at rest or wheezing Gastrointestinal Gastrointestinal: Denies abdominal pain, constipation, diarrhea, nausea or vomiting Genitourinary Genitourinary: Denies dysuria, hematuria or urinary frequency Musculoskeletal Musculoskeletal: Denies joint pain, joint stiffness or joint swelling Integumentary Integumentary: Denies lesions, pruritus or rash Neurologic Neurologic: Denies dizziness, numbness or seizures Endocrine Endocrinology: Denies cold intolerance or heat intolerance Hematologic/Lymphatic Hematologic/Lymphatic: Denies easy bleeding or easy bruising Vital Signs Vital Signs Vital Signs: 01/25/23 08:47 Temperature 96.1 F L Temperature Source Temporal Weight Weight: 110.677 kg Body Mass Index (BMI) 41.8 Physical Exam Const alert, oriented x3, no apparent distress and well nourished General Appearance: cooperative HEENT normocephalic Eyes General Eye: normal appearance of both eyes Neck General: normal visual inspection Lymph Lymphatic: no lymphadenopathy noted and no lymphedema noted Resp normal respiratory effort Cardio regular rate and regular rhythm Extremity normal capillary refill, no joint enlargement, no calf tenderness and no pedal edema Extremity Narrative: DP and PT pulses palpable bilateral. Capillary fill time to the digits less than 5 seconds bilateral. Hair growth diminished to the digits bilateral. Dermatological: Skin appears well-hydrated with normal turgor. Hyperkeratotic tissue Sub first metatarsal head of the left foot with no evidence of open wound. There is a large ulceration noted to the plantar aspect of the first metatarsal head of the right foot with surrounding hyperkeratotic tissue and maceration. Wound bed demonstrates granular tissue. No purulent drainage, no malodor, no palpable fluctuance/bogginess, no visible abscess formation, no lymphangitic streaking. Ulceration does not probe to bone. Musculoskeletal: Muscle strength 5 of 5 age-appropriate. She does demonstrate decreased range of motion of the first metatarsophalangeal joint bilateral without pain or crepitus. Decreased range of motion of the ankle joint in dorsiflexion with the knee extended without pain or crepitus bilateral. Hammertoe deformity of the right hallux. No pain to palpation about the ulcerative site plantar first metatarsal head right foot. Skin no rashes or lesions noted, skin turgor normal and no jaundice Neuro moves all extremities Neuro Narrative: Diminished protective sensation bilateral secondary to diabetic peripheral polyneuropathy Debridement Note Debridement Note Wound debrided: Sub first metatarsal head Laterality: Right Wound Grade/Stage: Nichols stage I Type of Debridement: Excisional debridement Anesthesia Used: 5% Lidocaine Gel Depth: Down to and including healthy tissue and in the subcutaneous layer Percentage of wound debrided: 100 Instrument Used: 5mm curette Tissue Removed: Fibrous, devitalized subcutaneous, biofilm, slough Severity: Fat Layer Exposed Amount of bleeding with debridement: Mild Bleeding Controlled with: Compression and gauze Patient tolerated procedure: Patient tolerated procedure well Post-Debridement Measurements and Additional Note: Post-Debridement Measurements/Treatment - Nurse 1 - General Ulcer Assessment Start: 01/16/23 08:24 Freq: Status: Active Protocol: JAXSON Activity Type Activity Date Activity User E-sign Co-sign Detail Recorded Client Recorded Date Recorded By Document 01/16/23 08:24 MW [id number] 01/16/23 08:42 MW Document 01/25/23 08:47 AK [id number] 01/25/23 08:53 AK 01/16/23 01/25/23 08:24 08:47 - Today's Visit Information Type of service Initial Visit Follow-up Visit (Physician/RESTAURANT FLOOR MANAGER ) Arrival Mode Ambulatory Ambulatory Transfer Assistance None Accompanied by self Patient Identification Verified (Name & Yes Yes ) Patient Requires Transmission-Based No No Precautions Safety Precautions NA Height and Weight Height 5 ft 4 in Weight 110.677 kg Weight in Pounds 244.0 lbs Body Mass Index (BMI) 41.8 41.8 BMI Classification Obese Obese BSA - Jose Anotnio 2.13 Vital Signs Temperature (97.8 F-99.1 F) 96.9 F L 96.1 F L Temperature Source Temporal Temporal Pulse Rate (60-100) 85 Pulse Location Monitor Respiratory Rate (12-18) 16 Respiratory rate source Observation Oxygen Delivery Method Room Air Blood Pressure (90/60-120/80) 120/78 Blood Pressure Mean 92 Source Monitor Position Sitting Blood Pressure Location Left Arm History Since Last Visit- (Skip if this is Patient's initial visit) Have you changed medications since your No last visit? Any new allergies or adverse reactions No Had a fall/change in ADL's that may No increase risk of falls Signs or symptoms of abuse and/or No neglect since last visit Have you been in the hospital since your No last visit? Has dressing in place as prescribed Yes Has offloadiing in place as prescribed N/A Experienced any changes in pain level or No management Left Footwear Regular Shoe Regular Shoe Right Footwear Regular Shoe Regular Shoe Pain Scale: 0-10 Numeric Is Patient Pain Free? Yes Yes Lower Extremity Assessment/ Foot Assessment/ Toe Nail Assessment Right -Posterior Tibial Palpable Yes -Posterior Tibial Doppler Multiphasic -Dorsalis Pedis Palpable Yes -Dorsalis Pedis Doppler Monophasic -Extremity Color Normal -Hair Growth on Legs No -Hair Growth on Toes No -Temperature of Extremity Warm -Capillary Refill Less than 3 Seconds -Dependent Rubor No -Blanched when Elevated No -Lipodermatosclerosis No -Other Deformity No -Prior Foot Ulcer No -Charcot Joint No -Prior Amputation No -Thick No -Discolored No -Deformed No -Improper Length & Hygeine No Left -Posterior Tibial Palpable Yes -Posterior Tibial Doppler Multiphasic -Dorsalis Pedis Palpable Yes -Dorsalis Pedis Doppler Multiphasic -Extremity Color Normal -Hair Growth on Legs No -Hair Growth on Toes No -Temperature of Extremity Warm -Capillary Refill Less than 3 Seconds -Dependent Rubor No -Blanched when Elevated No -Lipodermatosclerosis No -Other Deformity No -Prior Foot Ulcer No -Charcot Joint No -Prior Amputation No -Thick No -Discolored No -Deformed No -Improper Length & Hygeine No Communication Assessment Preferred language Macanese Able to Read Yes Able to Write Yes Communication Tools None Caregiver Communication Skills No Impairment Impairment Right Hearing Abillity Normal Left Hearing Abillity Normal Visual Assistive Devices Glasses Teaching Assessment Preferences Verbal,Written, Audio/Visual, Demonstration Barriers to Learning None Readiness To Learn Excellent Willingness to Engage in Self Management High Activies Readiness to Engage in Self Management High Activities Anxiety Level Calm Cooperation Cooperative Perception Coherent Interest in Health Problem Asks Questions Education Importance Acknowledges Need Does Patient Smoke tobacco or other Yes substances Smoking Status Never smoker Is Patient Diabetic Yes Functional Assessment Recent Decline in Ability to Perform Denies Any Declines Assistive Device With Patient No 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 Production Wood Craftsman to contact place of roman catholic No Teaching: Wound Center *Welcome to the Wound Center -Person Taught Patient -Teaching Method Demonstration -Response to teaching Verbalize understanding WC - Nurse 1 - General Ulcer Measurement Start: 01/16/23 08:24 Freq: Status: Active Protocol: Activity Type Activity Date Activity User E-sign Co-sign Detail Recorded Client Recorded Date Recorded By Document 01/16/23 08:24 MW [id number] 01/16/23 08:42 MW Document 01/25/23 08:47 AK [id number] 01/25/23 08:53 AK 01/16/23 01/25/23 08:24 08:47 Wound Center Nurse 1 #1 right plantar foot -Combined with other wound No No -Current Size (cm) - Length 2.5 2 -Current Size (cm) - Width 2.5 3 -Current Size (cm) - Depth 0.3 0.2 -Total Square Cm 6.25 6 -Date of Last Picture (Recall this 01/16/23 01/25/23 field) -Photo Taken Yes Yes -Epithelialization Small 1-33% -Tunneling No No -Undermining/Tunneling No No -Circular Undermining No No -Change in Wound Grade/Stage No -Exudate Amt Medium Large -Exudate Type Serosanguineous Serosanguineous -Wound Margin Thickened Thickened & Rolled Under -Granulation Amt Large (67-100%) Large (67-100%) -Granulation Quality [place] -Slough/Fibrin Yes Yes -Necrosis Amt Small (1-33%) Small (1-33%) -Necrotic Tissue Type Adherent Slough Adherent Slough -Structure Exposed N/A N/A -Texture (Kelsie-wound Skin Appearance) Assessed,Callus Assessed,Callus ,Localized Edema -Moisture (Kelsie-wound Skin Appearance) Assessed,Dry/ No Abnormality, Scaly Assessed -Color (Kelsie-wound Skin Appearance) No Abnormality, No Abnormality, Assessed Assessed -Temperature (Kelsie-wound Skin No Abnormality No Abnormality Appearance) (Pt Warm) (Pt Warm) -Tenderness on Palpation (Kelsie-wound Yes No Skin Appearance) -Ulcer Cleansing Rinsed/ Rinsed/ Irrigated with Irrigated with Saline Saline -Foul Odor after Cleansing No No -Anesthetic Used 5% Lidocaine 5% Lidocaine Gel Gel Lower Limb Edema Present Yes Right Calf (cm) 46.5 Right Ankle (cm) 26.5 Left Calf (cm) 42.5 Left Ankle (cm) 23.5 WC - Nurse 2 - General Ulcer CM Notes Start: 01/16/23 08:24 Freq: Status: Active Protocol: Activity Type Activity Date Activity User E-sign Co-sign Detail Recorded Client Recorded Date Recorded By Document 01/16/23 11:38 PL [id number] 01/16/23 11:39 PL 01/16/23 11:38 Wound Center Nurse 2 -Time 08:59 -Correct Patient Yes -Correct Side, Site, Position Yes -Correct Procedure Yes -Procedure Performed Yes -Type of Procedure Debridement -Clinical Debridement Subcutaneous -Tissue Removed Subcutaneous -Post Debridement (cm) - Length 2.5 -Post Debridement (cm) - Width 2.5 -Post Debridement (cm) - Depth 0.3 -Total Square (Post) (cm) 6.25 -Area of Debridement (cm) - Length 2.5 -Area of Debridement (cm) - Width 2.5 -Total Square (Area) (cm) 6.25 -Tunneling No -Undermining/Tunneling No -Circular Undermining No -Wound/Ulcer Outcome Not Healed -Ulcer Cleansing Rinsed/ Irrigated with Saline -Foul Odor after Cleansing No -Bioengineered Tissue No -Bleeding Controlled with Pressure -Treatment Response Procedure Tolerated Well -Debridement - Subq, 1st 20sq cm Yes Pain Scale: 0-10 Numeric Is Patient Pain Free? Yes WC - Nurse 3 - General Ulcer D/C NN Start: 01/16/23 08:24 Freq: Status: Active Protocol: Activity Type Activity Date Activity User E-sign Co-sign Detail Recorded Client Recorded Date Recorded By Document 01/16/23 09:26 MW [id number] 01/16/23 09:29 MW 01/16/23 09:26 Wound Care Center Nurse 3 #1 right plantar foot -Ulcer Cleansing Rinsed/ Irrigated with Saline -Foul Odor after Cleansing No -Negative Pressure Wound Therapy N/A -Primary Dressing Applied Hysept ($) -Primary Dressing Covered/Secured with Dry Gauze, Secured with Tape Treatment Response Procedure Tolerated Well Pain Scale: 0-10 Numeric Is Patient Pain Free? Yes Teaching: Wound Center Dressing Your Wound -Person Taught Patient -Teaching Method Discussion, Demonstration -Response to teaching Verbalize understanding WC - Visit Discharge Discharge Condition Stable Ambulatory Status Ambulatory Transportation Private Auto Accompanied by self Medication Reconcilliation completed & No provided to patient/care provider Clinical Summary of Care Provided Yes Assessment/Plan Assessment/Plan (1) Hypertension: CODE(S): I10 - Essential (primary) hypertension (2) Hyperlipidemia: CODE(S): E78.5 - Hyperlipidemia, unspecified (3) Morbid obesity with BMI of 40.0-44.9, adult: CODE(S): E66.01 - Morbid (severe) obesity due to excess calories; Z68.41 - Body mass index [BMI] 40.0-44.9, adult (4) Diabetes mellitus with diabetic polyneuropathy: CODE(S): E11.42 - Type 2 diabetes mellitus with diabetic polyneuropathy (5) Type 2 diabetes mellitus with foot ulcer: CODE(S): E11.621 - Type 2 diabetes mellitus with foot ulcer; L97.509 - Non-pressure chronic ulcer of other part of unspecified foot with unspecified severity (6) Hallux malleus of right foot: CODE(S): M20.31 - Hallux varus (acquired), right foot (7) Acquired hallux limitus of right foot: CODE(S): M20.5X1 - Other deformities of toe(s) (acquired), right foot (8) Non-pressure chronic ulcer of other part of right foot with fat layer exposed: CODE(S): L97.512 - Non-pressure chronic ulcer of other part of right foot with fat layer exposed (9) Gastrocnemius equinus of right lower extremity: CODE(S): M21.861 - Other specified acquired deformities of right lower leg PLAN: Plan Patient seen and evaluated. Patient was ambulating in flip-flops with no offloading to the wound site today. I have reviewed the LEAS performed 01/17/2023 demonstrating: Left foot triphasic DP and PT on Doppler; Indices left foot PT- 1.05. DP 1.03, Digit 0.91; right foot triphasic DP and PT on Doppler; Indices foot PT 1.10, DP 1.16, digit noncompressible. PVR diminished at ankle and digit on left with noncompressible digit right foot. Impression no evidence of significant occlusive arterial disease. Reviewed diagnostic data from 01/17/2023 demonstrating WBC of 8.7 Radiographic imaging obtained 01/17/2023 demonstrating no evidence of osteomyelitis. I have reviewed this imaging and concur with the radiographic read. I have reviewed her culture results which were obtained 01/17/2023 demonstrating: Providencia rettgeri, Staph aureus, Stap agalactaie, and Kocuria kristinae. She was prescribed Augmentin [address] Omar MD. Patient however states she never realized prescription was phoned in for her to waste picker and has not been taking the antibiotic. Discussed with her today to waste picker the antibiotic and begin taking this and finish to completion. She voices understanding of this. Ulceration underwent debridement as noted in the clinical panel above. Ulcerative site demonstrates healthy granular base with surrounding hyperkeratosis and maceration. No signs of infection. Ulceration measures 2.5 cm x 3.7 cm x 0.2 cm. Katrina and dry sterile dressing applied to ulcerative site. She is to change dressings daily. She was sent to office for dispense of CAM boot for the right lower extremity and did obtain the offloading boot today. Offloading pad was cut to be placed into the plantar side of the boot to effectively offload the Sub first metatarsal head. She was instructed to weight-bear in the cam boot at all times. She may remove the boot for shower purposes and sleeping. She voices understanding of this. Discussed that pressure reduction to the site is essential for her healing status. Discussed proper diabetic diet to maintain tight glycemic control. Last A1c 09/2022 was 7.0%. Discussed continued diet and exercise along with lifestyle modification/weight loss to aid in healthy lifestyle. Discussed importance of daily foot checks. Discussed adequate protein intake to aid in wound healing. She may take Jeremy supplementation to aid in wound healing. Discussed being diabetic she is never to go barefoot and should wear closed toed shoes at all times. Discussed with her socks is considered barefoot. Encouraged shoe gear to be worn at all times. She voices understanding of this today. Recommend diabetic shoes with plantar offloading padding once ulceration has healed. Discussed signs and symptoms of infection. Discussed if she notices redness about the ulcerative site that moves to the top of the foot and up the foot, purulent drainage from the wound site, increasing foul odor, or if she experiences fever greater than 101 degree, nausea, vomiting, chills that these are signs of a progressing infection and she should report to the ED for IV antibiotics. She voices understanding of this today. The following work up and care recommendations were made: Dressing: Katrina and dry sterile dressing Wash: Soap and water Tissue growth optimization: Katrina Offload: Cam boot with plantar offloading padding Vascular: Palpable pedal pulses bilateral. LEAS obtained and reviewed from 01/17/2023 demonstrating no significant arterial occlusive disease. She is noted to have mild arterial disease of the popliteal/SFA bilateral. On Doppler DP and PT are triphasic bilateral. Edema: No edema noted Infection: No signs of infection Pain: May take yaix-irp-eveylja Tylenol for discomfort Host factors: DM type II with peripheral polyneuropathy, hallux limitus right foot, hallux malleus right foot, morbid obesity, equinus deformity all complicated healing potential I answered all the patient's questions. To return to the wound healing center in 1 week or call sooner if the patient has any questions or concerns.
[2023-02-01 09:06] VITALS: BP 139/96; PULSE 75; RESP 18; BMI 41.8
--- NOTE | 2023-02-01 09:17 | PN.PCM_ITS ---
History of Present Illness Date of Service: 02/01/23 Chief Complaint: Diabetic foot ulceration, right metatarsal-phalangeal joint, plantar surface History of Wound: This is a 58-year-old, morbidly-obese, diabetic female who presents with a large ulceration on the right great toe. The ulceration is located at the right first metatarsophalangeal joint, on the plantar surface. It has been present for approximately 4 months. According to the patient, it originated as a callus, and she ripped off the skin. She has been using Watkin's salve topically. The patient does not see a cafeteria table attendant on a regular basis. Her BMI is 41.8. She denies a history of smoking. She also denies a history of myocardial infarction, congestive heart failure, cerebrovascular accident, pulmonary disease, renal disease, and thyroid disease. Most recent hemoglobin A1c was 7.0 in September,. Laboratory studies obtained recently, dated January 03, 2023, are as follows: White blood count 8.7, hemoglobin 13.5, hematocrit 41.4, platelets 308,000, sodium 138, potassium 4.0, chloride 101, BUN 14, creatinine 0.65, glucose 140, calcium 9.3, bilirubin 0.40, AST 19, ALT 24, alkaline phosphatase 107, protein 7.8, albumin 3.3. Subjective Subjective This is a 58-year-old diabetic female who presents to the wound care center today for follow-up of a plantar first metatarsal head ulceration of the right foot. She states she has been changing the dressings with dry gauze that she did not receive the Katrina and dressing supplies by mail. She states she has continued to offload in the CAM boot with plantar offloading padding, however did walk into the wound care center today with flip-flops. She denies any constitutional symptoms. She denies further complaints. Objective Data Objective Data Vital Signs: Vital Signs Temp Pulse Resp BP O2 Del Method 96.1 F L 75 18 139/96 H Room Air 01/25/23 08:47 02/01/23 09:06 02/01/23 09:06 02/01/23 09:06 02/01/23 09:06 Oxygen Delivery Method Room Air Weight: 110.677 kg Body Mass Index (BMI) 41.8 Lab / Micro Data Micro: Microbiology 01/16/23 09:10 Wound Abcess - Right Foot Gram Stain - Final 01/16/23 09:10 Wound Abcess - Right Foot Wound Culture - Final Providencia rettgeri Staphylococcus aureus Streptococcus agalactiae (B) Aubrie lyonae 01/16/23 09:10 Wound Abcess - Right Foot Anaerobic Culture - Final Anaerobic cocci Physical Exam Const alert, oriented x3, no apparent distress and well nourished General Appearance: cooperative HEENT normocephalic Eyes General Eye: normal appearance of both eyes Neck General: normal visual inspection Lymph Lymphatic: no lymphadenopathy noted and no lymphedema noted Resp normal respiratory effort Cardio regular rate and regular rhythm Extremity normal capillary refill, no joint enlargement, no calf tenderness and no pedal edema Extremity Narrative: DP and PT pulses palpable bilateral. Capillary fill time to the digits less than 5 seconds bilateral. Hair growth diminished to the digits bilateral. Dermatological: Skin appears well-hydrated with normal turgor. Hyperkeratotic tissue Sub first metatarsal head of the left foot with no evidence of open wound. There is a large ulceration noted to the plantar aspect of the first metatarsal head of the right foot with surrounding hyperkeratotic tissue and maceration. Wound bed demonstrates granular tissue. No purulent drainage, no malodor, no palpable fluctuance/bogginess, no visible abscess formation, no lymphangitic streaking. Ulceration does not probe to bone. Musculoskeletal: Muscle strength 5 of 5 age-appropriate. She does demonstrate decreased range of motion of the first metatarsophalangeal joint bilateral without pain or crepitus. Decreased range of motion of the ankle joint in dorsiflexion with the knee extended without pain or crepitus bilateral. Hammertoe deformity of the right hallux. No pain to palpation about the ulcerative site plantar first metatarsal head right foot. Skin no rashes or lesions noted, skin turgor normal and no jaundice Neuro moves all extremities Neuro Narrative: Diminished protective sensation bilateral secondary to diabetic peripheral polyneuropathy Debridement Note Debridement Note Wound debrided: Sub first metatarsal head Laterality: Right Wound Grade/Stage: Nichols stage I Type of Debridement: Excisional debridement Anesthesia Used: 5% Lidocaine Gel Depth: Down to and including healthy tissue and in the subcutaneous layer Percentage of wound debrided: 100 Instrument Used: 5mm curette Tissue Removed: Fibrous, devitalized subcutaneous, biofilm, slough Severity: Fat Layer Exposed Amount of bleeding with debridement: Mild Bleeding Controlled with: Compression and gauze Patient tolerated procedure: Patient tolerated procedure well Post-Debridement Measurements and Additional Note: Post-Debridement Measurements/Treatment - Nurse 1 - General Ulcer Assessment Start: 01/16/23 08:24 Freq: Status: Active Protocol: JAXSON Activity Type Activity Date Activity User E-sign Co-sign Detail Recorded Client Recorded Date Recorded By Document 01/16/23 08:24 MW [id number] 01/16/23 08:42 MW Document 01/25/23 08:47 AK [id number] 01/25/23 08:53 AK Document 02/01/23 09:06 KW Desktop 02/01/23 09:15 KW 01/16/23 01/25/23 02/01/23 08:24 08:47 09:06 - Today's Visit Information Type of service Initial Visit Follow-up Visit Follow-up Visit (Physician/DELPHI PROGRAMMER (Physician/DELPHI PROGRAMMER ) ) Arrival Mode Ambulatory Ambulatory Ambulatory Transfer Assistance None Accompanied by self Patient Identification Verified (Name & Yes Yes Yes ) Patient Requires Transmission-Based No No No Precautions Safety Precautions NA Height and Weight Height 5 ft 4 in Weight 110.677 kg Weight in Pounds 244.0 lbs Body Mass Index (BMI) 41.8 41.8 41.8 BMI Classification Obese Obese Obese BSA - Jose Antonio 2.13 Vital Signs Temperature (97.8 F-99.1 F) 96.9 F L 96.1 F L Temperature Source Temporal Temporal Pulse Rate (60-100) 85 75 Pulse Location Monitor Monitor Respiratory Rate (12-18) 16 18 Respiratory rate source Observation Observation Oxygen Delivery Method Room Air Room Air Blood Pressure (90/60-120/80) 120/78 139/96 H Blood Pressure Mean (mm Hg) 92 110 Source Monitor Monitor Position Sitting Semi-Fowlers Blood Pressure Location Left Arm Left Arm History Since Last Visit- (Skip if this is Patient's initial visit) Have you changed medications since your No No last visit? Any new allergies or adverse reactions No No Had a fall/change in ADL's that may No No increase risk of falls Signs or symptoms of abuse and/or No No neglect since last visit Have you been in the hospital since your No No last visit? Has dressing in place as prescribed Yes Yes Has compression in place as prescribed No Has offloadiing in place as prescribed N/A No Experienced any changes in pain level or No No management Left Footwear Regular Shoe Regular Shoe Regular Shoe Right Footwear Regular Shoe Regular Shoe Regular Shoe Pain Scale: 0-10 Numeric Is Patient Pain Free? Yes Yes Yes Lower Extremity Assessment/ Foot Assessment/ Toe Nail Assessment Right -Posterior Tibial Palpable Yes -Posterior Tibial Doppler Multiphasic -Dorsalis Pedis Palpable Yes -Dorsalis Pedis Doppler Monophasic -Extremity Color Normal -Hair Growth on Legs No -Hair Growth on Toes No -Temperature of Extremity Warm -Capillary Refill Less than 3 Seconds -Dependent Rubor No -Blanched when Elevated No -Lipodermatosclerosis No -Other Deformity No -Prior Foot Ulcer No -Charcot Joint No -Prior Amputation No -Thick No -Discolored No -Deformed No -Improper Length & Hygeine No Left -Posterior Tibial Palpable Yes -Posterior Tibial Doppler Multiphasic -Dorsalis Pedis Palpable Yes -Dorsalis Pedis Doppler Multiphasic -Extremity Color Normal -Hair Growth on Legs No -Hair Growth on Toes No -Temperature of Extremity Warm -Capillary Refill Less than 3 Seconds -Dependent Rubor No -Blanched when Elevated No -Lipodermatosclerosis No -Other Deformity No -Prior Foot Ulcer No -Charcot Joint No -Prior Amputation No -Thick No -Discolored No -Deformed No -Improper Length & Hygeine No Communication Assessment Preferred language Hungarian Able to Read Yes Able to Write Yes Communication Tools None Caregiver Communication Skills No Impairment Impairment Right Hearing Abillity Normal Left Hearing Abillity Normal Visual Assistive Devices Glasses Teaching Assessment Preferences Verbal,Written, Audio/Visual, Demonstration Barriers to Learning None Readiness To Learn Excellent Willingness to Engage in Self Management High Activies Readiness to Engage in Self Management High Activities Anxiety Level Calm Cooperation Cooperative Perception Coherent Interest in Health Problem Asks Questions Education Importance Acknowledges Need Does Patient Smoke tobacco or other Yes substances Smoking Status Never smoker Is Patient Diabetic Yes Functional Assessment Recent Decline in Ability to Perform Denies Any Declines Assistive Device With Patient No Culture/Mandaeism/Air Brake Adjuster Cultural/Mandaeism Needs that may affect No Treatment Plan Would you allow our hospital geological engineer to No meet you for the purpose of spiritual/ emotional support? Air Brake Adjuster to contact place of confucianism No Teaching: Wound Center *Welcome to the Wound Center -Person Taught Patient -Teaching Method Demonstration -Response to teaching Verbalize understanding WC - Nurse 1 - General Ulcer Measurement Start: 01/16/23 08:24 Freq: Status: Active Protocol: Activity Type Activity Date Activity User E-sign Co-sign Detail Recorded Client Recorded Date Recorded By Document 01/16/23 08:24 MW [id number] 01/16/23 08:42 MW Document 01/25/23 08:47 AK [id number] 01/25/23 08:53 AK Document 02/01/23 09:06 KW Desktop 02/01/23 09:15 KW 01/16/23 01/25/23 02/01/23 08:24 08:47 09:06 Wound Center Nurse 1 #1 right plantar foot -Combined with other wound No No -Current Size (cm) - Length 2.5 2 2.5 -Current Size (cm) - Width 2.5 3 2.4 -Current Size (cm) - Depth 0.3 0.2 0.2 -Total Square Cm 6.25 6 6.00 -Date of Last Picture (Recall this 01/16/23 01/25/23 field) -Photo Taken Yes Yes No -Epithelialization Small 1-33% -Tunneling No No No -Undermining/Tunneling No No No -Circular Undermining No No No -Change in Wound Grade/Stage No -Exudate Amt Medium Large Medium -Exudate Type Serosanguineous Serosanguineous Serosanguineous -Wound Margin Thickened Thickened & Distinct, Rolled Under Outline Attached -Granulation Amt Large (67-100%) Large (67-100%) Large (67-100%) -Granulation Quality Kinder Kinder Red -Slough/Fibrin Yes Yes -Necrosis Amt Small (1-33%) Small (1-33%) Small (1-33%) -Necrotic Tissue Type Adherent Slough Adherent Slough Adherent Slough -Structure Exposed N/A N/A -Texture (Kelsie-wound Skin Appearance) Assessed,Callus Assessed,Callus Assessed ,Localized Edema -Moisture (Kelsie-wound Skin Appearance) Assessed,Dry/ No Abnormality, Assessed Scaly Assessed -Color (Kelsie-wound Skin Appearance) No Abnormality, No Abnormality, Assessed Assessed Assessed -Temperature (Kelsie-wound Skin No Abnormality No Abnormality No Abnormality Appearance) (Pt Warm) (Pt Warm) (Pt Warm) -Tenderness on Palpation (Kelsie-wound Yes No No Skin Appearance) -Ulcer Cleansing Rinsed/ Rinsed/ Wound Cleanser Irrigated with Irrigated with Saline Saline -Foul Odor after Cleansing No No No -Anesthetic Used 5% Lidocaine 5% Lidocaine 5% Lidocaine Gel Gel Gel Lower Limb Edema Present Yes NA Right Calf (cm) 46.5 Right Ankle (cm) 26.5 Left Calf (cm) 42.5 Left Ankle (cm) 23.5 - Nurse 2 - General Ulcer CM Notes Start: 01/16/23 08:24 Freq: Status: Active Protocol: Activity Type Activity Date Activity User E-sign Co-sign Detail Recorded Client Recorded Date Recorded By Document 01/16/23 11:38 PL [id number] 01/16/23 11:39 PL Document 01/25/23 12:12 PL [id number] 01/25/23 12:13 PL 01/16/23 01/25/23 11:38 12:12 Wound Center Nurse 2 #1 right plantar foot -Time 08:59 09:28 -Correct Patient Yes Yes -Correct Side, Site, Position Yes Yes -Correct Procedure Yes Yes -Procedure Performed Yes Yes -Type of Procedure Debridement Debridement -Clinical Debridement Subcutaneous Subcutaneous -Tissue Removed Subcutaneous Subcutaneous -Post Debridement (cm) - Length 2.5 2.5 -Post Debridement (cm) - Width 2.5 3.3 -Post Debridement (cm) - Depth 0.3 0.1 -Total Square (Post) (cm) 6.25 8.25 -Area of Debridement (cm) - Length 2.5 2.5 -Area of Debridement (cm) - Width 2.5 3.3 -Total Square (Area) (cm) 6.25 8.25 -Tunneling No No -Undermining/Tunneling No No -Circular Undermining No No -Wound/Ulcer Outcome Not Healed Not Healed -Ulcer Cleansing Rinsed/ Rinsed/ Irrigated with Irrigated with Saline Saline -Foul Odor after Cleansing No No -Bioengineered Tissue No No -Bleeding Controlled with Pressure Pressure -Treatment Response Procedure Procedure Tolerated Well Tolerated Well -Debridement - Subq, 1st 20sq cm Yes Yes Pain Scale: 0-10 Numeric Is Patient Pain Free? Yes Yes - Nurse 3 - General Ulcer D/C NN Start: 01/16/23 08:24 Freq: Status: Active Protocol: Activity Type Activity Date Activity User E-sign Co-sign Detail Recorded Client Recorded Date Recorded By Document 01/16/23 09:26 MW [id number] 01/16/23 09:29 MW Document 01/25/23 11:02 [id number] 01/25/23 11:03 01/16/23 01/25/23 09:26 11:02 Wound Care Center Nurse 3 #1 right plantar foot -Ulcer Cleansing Rinsed/ Rinsed/ Irrigated with Irrigated with Saline Saline -Foul Odor after Cleansing No No -Negative Pressure Wound Therapy N/A N/A -Primary Dressing Applied Hysept ($) Promogran Katrina Matter -Other Dressing foam insert given for boot -Primary Dressing Covered/Secured with Dry Gauze, Dry Gauze, Secured with Secured with Tape Tape -Promogran Katrina Matter 2 Treatment Response Procedure Tolerated Well Pain Scale: 0-10 Numeric Is Patient Pain Free? Yes No Teaching: Wound Center Dressing Your Wound -Person Taught Patient -Teaching Method Discussion, Demonstration -Response to teaching Verbalize understanding WC - Visit Discharge Discharge Condition Stable Stable Ambulatory Status Ambulatory Ambulatory Transportation Private Auto Private Auto Accompanied by self Medication Reconcilliation completed & No Yes provided to patient/care provider Clinical Summary of Care Provided Yes Yes Assessment/Plan Assessment/Plan (1) Hypertension: CODE(S): I10 - Essential (primary) hypertension (2) Hyperlipidemia: CODE(S): E78.5 - Hyperlipidemia, unspecified (3) Morbid obesity with BMI of 40.0-44.9, adult: CODE(S): E66.01 - Morbid (severe) obesity due to excess calories; Z68.41 - Body mass index [BMI] 40.0-44.9, adult (4) Diabetes mellitus with diabetic polyneuropathy: CODE(S): E11.42 - Type 2 diabetes mellitus with diabetic polyneuropathy (5) Type 2 diabetes mellitus with foot ulcer: CODE(S): E11.621 - Type 2 diabetes mellitus with foot ulcer; L97.509 - Non-pressure chronic ulcer of other part of unspecified foot with unspecified severity (6) Hallux malleus of right foot: CODE(S): M20.31 - Hallux varus (acquired), right foot (7) Acquired hallux limitus of right foot: CODE(S): M20.5X1 - Other deformities of toe(s) (acquired), right foot (8) Non-pressure chronic ulcer of other part of right foot with fat layer exposed: CODE(S): L97.512 - Non-pressure chronic ulcer of other part of right foot with fat layer exposed (9) Gastrocnemius equinus of right lower extremity: CODE(S): M21.861 - Other specified acquired deformities of right lower leg PLAN: Plan Patient seen and evaluated. Patient was ambulating in flip-flops with no offloading to the wound site today. I have reviewed the LEAS performed 01/17/2023 demonstrating: Left foot triphasic DP and PT on Doppler; Indices left foot PT- 1.05. DP 1.03, Digit 0.91; right foot triphasic DP and PT on Doppler; Indices foot PT 1.10, DP 1.16, digit noncompressible. PVR diminished at ankle and digit on left with noncompressible digit right foot. Impression no evidence of significant occlusive arterial disease. Reviewed diagnostic data from 01/17/2023 demonstrating WBC of 8.7 Radiographic imaging obtained 01/17/2023 demonstrating no evidence of osteomyelitis. I have reviewed this imaging and concur with the radiographic re ad. I have reviewed her culture results which were obtained 01/17/2023 demonstrating: Providencia rettgeri, Staph aureus, Stap agalactaie, and Kocuria kristinae. She was prescribed Augmentin [address] Omar MD. 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 She did bean picker machine operator antibiotic and has began taking this. Discussed completing antibiotic to full completion. Ulceration underwent debridement as noted in the clinical panel above. Ulcerative site demonstrates healthy granular base with surrounding hyperkeratosis and maceration. No signs of infection. Ulceration measures 2.3 cm x 2.8 cm x 0.2 cm. Katrina and dry sterile dressing applied to ulcerative site. She is to change dressings daily. Ulceration demonstrates reduction in size with current offloading versus previous visit. We will look to obtain approval for application of advanced wound care product at next visit. She was instructed to continue offloading in CAM boot for the right lower extremity with plantar offloading padding for first metatarsal head. She was instructed to weight-bear in the CAM boot at all times and not to wear flip- flops. She may remove the boot for shower purposes and sleeping. She voices understanding of this. Discussed that pressure reduction to the site is essential for her healing status. Discussed proper diabetic diet to maintain tight glycemic control. Last A1c 09/2022 was 7.0%. Discussed continued diet and exercise along with lifestyle modification/weight loss to aid in healthy lifestyle. Discussed importance of daily foot checks. Discussed adequate protein intake to aid in wound healing. She may take Jeremy supplementation to aid in wound healing. Discussed being diabetic she is never to go barefoot and should wear closed toed shoes at all times. Discussed with her socks is considered barefoot. Encouraged shoe gear to be worn at all times. She voices understanding of this today. Recommend diabetic shoes with plantar offloading padding once ulceration has healed. Discussed signs and symptoms of infection. Discussed if she notices redness about the ulcerative site that moves to the top of the foot and up the foot, purulent drainage from the wound site, increasing foul odor, or if she experiences fever greater than 101 degree, nausea, vomiting, chills that these are signs of a progressing infection and she should report to the ED for IV antibiotics. She voices understanding of this today. The following work up and care recommendations were made: Dressing: Katrina and dry sterile dressing Wash: Soap and water Tissue growth optimization: Katrina Offload: Cam boot with plantar offloading padding Vascular: Palpable pedal pulses bilateral. LEAS obtained and reviewed from 01/17/2023 demonstrating no significant arterial occlusive disease. She is noted to have mild arterial disease of the popliteal/SFA bilateral. On Doppler DP and PT are triphasic bilateral. Edema: No edema noted Infection: No signs of infection Pain: May take [id number] Tylenol for discomfort Host factors: DM type II with peripheral polyneuropathy, hallux limitus right foot, hallux malleus right foot, morbid obesity, equinus deformity all complicated healing potential I answered all the patient's questions. To return to the wound healing center in 1 week or call sooner if the patient has any questions or concerns.
== END 2023-02-05 23:59 | disposition home or self-care (01) ==
LOC: WC 09:00
PROVIDERS: PCP Nurse Practitioner Family; Referring Provider Family Medicine; Visit Provider Student in an Organized Health Care Education/Training Program
DX: E11.621 Type 2 diabetes mellitus with foot ulcer (principal); L97.512 Non-pressure chronic ulcer of other part of right foot with fat layer exposed; E11.42 Type 2 diabetes mellitus with diabetic polyneuropathy; E66.01 Morbid (severe) obesity due to excess calories; R60.0 Localized edema; I10 Essential (primary) hypertension; E78.5 Hyperlipidemia, unspecified; Q66.30 Other congenital varus deformities of feet, unspecified foot; M21.861 Other specified acquired deformities of right lower leg
CPT/HCPCS: 11042; 73630; 87070; 87075; 87077; 87186; 87205; 93923; 99213; G0463

== ENCOUNTER 2023-03-08 09:45 | Outpatient (RCR) | payer OTHER, SELFPAY ==
[2023-02-06 00:27] VITALS: BP 139/96; PULSE 75; RESP 18; TEMP 35.6; BMI 41.8
[2023-02-08 09:08] VITALS: RESP 18; TEMP 35.9; BMI 41.8
--- NOTE | 2023-02-08 09:28 | PN.PCM_ITS ---
History of Present Illness Date of Service: 02/08/23 Chief Complaint: Diabetic foot ulceration, right metatarsal-phalangeal joint, plantar surface History of Wound: This is a 58-year-old, morbidly-obese, diabetic female who presents with a large ulceration on the right great toe. The ulceration is located at the right first metatarsophalangeal joint, on the plantar surface. It has been present for approximately 4 months. According to the patient, it originated as a callus, and she ripped off the skin. She has been using Watkin's salve topically. The patient does not see a butter grader on a regular basis. Her BMI is 41.8. She denies a history of smoking. She also denies a history of myocardial infarction, congestive heart failure, cerebrovascular accident, pulmonary disease, renal disease, and thyroid disease. Most recent hemoglobin A1c was 7.0 in September,. Laboratory studies obtained recently, dated January 03, 2023, are as follows: White blood count 8.7, hemoglobin 13.5, hematocrit 41.4, platelets 308,000, sodium 138, potassium 4.0, chloride 101, BUN 14, creatinine 0.65, glucose 140, calcium 9.3, bilirubin 0.40, AST 19, ALT 24, alkaline phosphatase 107, protein 7.8, albumin 3.3. Subjective Subjective This is a 58-year-old diabetic female who presents to the wound care center today for follow-up of a plantar first metatarsal head ulceration of the right foot. She states she has been changing the dressings with dry gauze that she still has not receive the Katrina and dressing supplies by mail. She states she has continued to offload in the CAM boot with plantar offloading padding. She denies any constitutional symptoms. She denies further complaints. Objective Data Objective Data Vital Signs: Vital Signs Temp Pulse Resp BP 96.7 F L 75 18 139/96 H 02/08/23 09:08 02/06/23 00:27 02/08/23 09:08 02/06/23 00:27 Weight: 110.677 kg Body Mass Index (BMI) 41.8 Physical Exam Const alert, oriented x3, no apparent distress and well nourished General Appearance: cooperative HEENT normocephalic Eyes General Eye: normal appearance of both eyes Neck General: normal visual inspection Lymph Lymphatic: no lymphadenopathy noted and no lymphedema noted Resp normal respiratory effort Cardio regular rate and regular rhythm Extremity normal capillary refill, no joint enlargement, no calf tenderness and no pedal edema Extremity Narrative: DP and PT pulses palpable bilateral. Capillary fill time to the digits less than 5 seconds bilateral. Hair growth diminished to the digits bilateral. Dermatological: Skin appears well-hydrated with normal turgor. Hyperkeratotic tissue Sub first metatarsal head of the left foot with no evidence of open wound. There is a large ulceration noted to the plantar aspect of the first metatarsal head of the right foot with surrounding hyperkeratotic tissue and maceration. Wound bed demonstrates granular tissue. No purulent drainage, no malodor, no palpable fluctuance/bogginess, no visible abscess formation, no lymphangitic streaking. Ulceration does not probe to bone. Musculoskeletal: Muscle strength 5 of 5 age-appropriate. She does demonstrate decreased range of motion of the first metatarsophalangeal joint bilateral without pain or crepitus. Decreased range of motion of the ankle joint in dorsiflexion with the knee extended without pain or crepitus bilateral. Hammertoe deformity of the right hallux. No pain to palpation about the ulcerative site plantar first metatarsal head right foot. Skin no rashes or lesions noted, skin turgor normal and no jaundice Neuro moves all extremities Neuro Narrative: Diminished protective sensation bilateral secondary to diabetic peripheral polyneuropathy Debridement Note Debridement Note Wound debrided: Sub first metatarsal Laterality: Right Wound Grade/Stage: Nichols stage I Type of Debridement: Excisional debridement Anesthesia Used: 5% Lidocaine Gel Depth: Down to and including healthy tissue and in the subcutaneous layer Percentage of wound debrided: 100 Instrument Used: 5mm curette Tissue Removed: Fibrous, devitalized subcutaneous, biofilm, slough Severity: Fat Layer Exposed Amount of bleeding with debridement: Mild Bleeding Controlled with: Compression and gauze Patient tolerated procedure: Patient tolerated procedure well Post-Debridement Measurements and Additional Note: Post-Debridement Measurements/Treatment RADHA - Nurse 1 - General Ulcer Assessment Start: 02/08/23 09:06 Freq: Status: Active Protocol: [facility] Activity Type Activity Date Activity User E-sign Co-sign Detail Recorded Client Recorded Date Recorded By Document 02/08/23 09:08 BRYANT [id number] 02/08/23 09:17 BRYANT 02/08/23 09:08 - Today's Visit Information Type of service Follow-up Visit (Physician/REHABILITATION PSYCHOLOGIST ) Arrival Mode Ambulatory Patient Identification Verified (Name & Yes ) Patient Requires Transmission-Based No Precautions Height and Weight Body Mass Index (BMI) 41.8 BMI Classification Obese Vital Signs Temperature (97.8 F-99.1 F) 96.7 F L Temperature Source Temporal Respiratory Rate (12-18) 18 Respiratory rate source Observation Pain Scale: 0-10 Numeric Is Patient Pain Free? Yes - Nurse 1 - General Ulcer Measurement Start: 02/08/23 09:06 Freq: Status: Active Protocol: Activity Type Activity Date Activity User E-sign Co-sign Detail Recorded Client Recorded Date Recorded By Document 02/08/23 09:08 [id number] 02/08/23 09:17 02/08/23 09:08 Wound Center Nurse 1 2-right 5th metatarsal foot -Combined with other wound No -Current Size (cm) - Length 0.4 -Current Size (cm) - Width 0.6 -Current Size (cm) - Depth 0.2 -Total Square Cm 0.24 -Photo Taken Yes -Epithelialization Small 1-33% -Tunneling No -Undermining/Tunneling No -Circular Undermining No -Exudate Amt Small -Exudate Type Serosanguineous -Wound Margin Flat & Intact -Granulation Amt Large (67-100%) -Granulation Quality Red -Slough/Fibrin Yes -Necrosis Amt Small (1-33%) -Necrotic Tissue Type Adherent Slough -Structure Exposed N/A -Texture (Kelsie-wound Skin Appearance) Assessed, Excoriation -Moisture (Kelsie-wound Skin Appearance) Assessed,Dry/ Scaly -Color (Kelsie-wound Skin Appearance) Assessed -Temperature (Kelsie-wound Skin No Abnormality Appearance) (Pt Warm) -Tenderness on Palpation (Kelsie-wound No Skin Appearance) -Foul Odor after Cleansing No -Anesthetic Used 5% Lidocaine Gel #1 right plantar foot -Combined with other wound No -Current Size (cm) - Length 2.1 -Current Size (cm) - Width 2.4 -Current Size (cm) - Depth 0.2 -Total Square Cm 5.04 -Photo Taken Yes -Epithelialization Small 1-33% -Tunneling No -Undermining/Tunneling No -Circular Undermining No -Exudate Amt Medium -Exudate Type Serosanguineous -Wound Margin Flat & Intact -Granulation Amt Large (67-100%) -Granulation Quality Red -Slough/Fibrin Yes -Necrosis Amt Small (1-33%) -Necrotic Tissue Type Adherent Slough -Structure Exposed N/A -Texture (Kelsie-wound Skin Appearance) Assessed,Callus -Moisture (Kelsie-wound Skin Appearance) Assessed,Dry/ Scaly -Color (Kelsie-wound Skin Appearance) Assessed -Temperature (Kelsie-wound Skin No Abnormality Appearance) (Pt Warm) -Tenderness on Palpation (Kelsie-wound No Skin Appearance) -Ulcer Cleansing Rinsed/ Irrigated with Saline -Foul Odor after Cleansing No -Anesthetic Used 5% Lidocaine Gel Lower Limb Edema Present NA Assessment/Plan Assessment/Plan (1) Gastrocnemius equinus of right lower extremity: CODE(S): M21.861 - Other specified acquired deformities of right lower leg (2) Non-pressure chronic ulcer of other part of right foot with fat layer exposed: CODE(S): L97.512 - Non-pressure chronic ulcer of other part of right foot with fat layer exposed (3) Acquired hallux limitus of right foot: CODE(S): M20.5X1 - Other deformities of toe(s) (acquired), right foot (4) Hallux malleus of right foot: CODE(S): M20.31 - Hallux varus (acquired), right foot (5) Type 2 diabetes mellitus with foot ulcer: CODE(S): E11.621 - Type 2 diabetes mellitus with foot ulcer; L97.509 - Non-pressure chronic ulcer of other part of unspecified foot with unspecified severity (6) Diabetes mellitus with diabetic polyneuropathy: CODE(S): E11.42 - Type 2 diabetes mellitus with diabetic polyneuropathy (7) Diabetic foot ulcer associated with diabetes mellitus due to underlying condition: CODE(S): E08.621 - Diabetes mellitus due to underlying condition with foot ulcer; L97.509 - Non-pressure chronic ulcer of other part of unspecified foot with unspecified severity QUALIFIERS: Diabetic foot ulcer location: toe Laterality: right Non-pressure ulcer stage: with fat layer exposed Qualified Code(s): E08.621 - Diabetes mellitus due to underlying condition with foot ulcer; L97.512 - Non- pressure chronic ulcer of other part of right foot with fat layer exposed (8) Hypertension: CODE(S): I10 - Essential (primary) hypertension (9) Hyperlipidemia: CODE(S): E78.5 - Hyperlipidemia, unspecified (10) Morbid obesity with BMI of 40.0-44.9, adult: CODE(S): E66.01 - Morbid (severe) obesity due to excess calories; Z68.41 - Body mass index [BMI] 40.0-44.9, adult PLAN: Plan Patient seen and evaluated. Patient was ambulating in flip-flops with no offloading to the wound site today. I have reviewed the LEAS performed 01/17/2023 demonstrating: Left foot triphasic DP and PT on Doppler; Indices left foot PT- 1.05. DP 1.03, Digit 0.91; right foot triphasic DP and PT on Doppler; Indices foot PT 1.10, DP 1.16, digit noncompressible. PVR diminished at ankle and digit on left with noncompressible digit right foot. Impression no evidence of significant occlusive arterial disease. Reviewed diagnostic data from 01/17/2023 demonstrating WBC of 8.7 Radiographic imaging obtained 01/17/2023 demonstrating no evidence of osteomyelitis. I have reviewed this imaging and concur with the radiographic read. I have reviewed her culture results which were obtained 01/17/2023 demonstrating: Providencia rettgeri, Staph aureus, Stap agalactaie, and Kocuria kristinae. She was prescribed Augmentin [address] Omar MD. 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 She did machine pecan picker antibiotic and has completed antibiotic course. Ulceration underwent debridement as noted in the clinical panel above. Ulcerative site demonstrates healthy granular base with surrounding hyperkeratosis and maceration. No signs of infection. Ulceration measures 2.1 cm x 2.5 cm x 0.2 cm. EpiFix #1 applied to ulcerative base and dressed with Adaptic touch, anchored with Steri-Strips. Dry sterile dressing applied. She was instructed to change outer dressings as needed. She was instructed to not get the site wet. Ulceration demonstrates reduction in size with current offloading versus previous visit. She has been approved for advanced wound care product. She was instructed to continue offloading in CAM boot for the right lower extremity with plantar offloading padding for first metatarsal head. She was instructed to weight-bear in the CAM boot at all times and not to wear flip- flops. She may remove the boot for shower purposes and sleeping. She voices understanding of this. Discussed that pressure reduction to the site is essential for her healing status. Discussed proper diabetic diet to maintain tight glycemic control. Last A1c 09/2022 was 7.0%. Discussed continued diet and exercise along with lifestyle modification/weight loss to aid in healthy lifestyle. Discussed importance of daily foot checks. Discussed adequate protein intake to aid in wound healing. She may take Jeremy supplementation to aid in wound healing. Discussed being diabetic she is never to go barefoot and should wear closed toed shoes at all times. Discussed with her socks is considered barefoot. Encouraged shoe gear to be worn at all times. She voices understanding of this today. Recommend diabetic shoes with plantar offloading padding once ulceration has healed. Discussed signs and symptoms of infection. Discussed if she notices redness about the ulcerative site that moves to the top of the foot and up the foot, purulent drainage from the wound site, increasing foul odor, or if she experiences fever greater than 101 degree, nausea, vomiting, chills that these are signs of a progressing infection and she should report to the ED for IV antibiotics. She voices understanding of this today. The following work up and care recommendations were made: Dressing: EpiFix, Adaptic touch, Steri-Strips, dry sterile dressing. Change outer dressings as needed. Wash: Do not get wet Tissue growth optimization: EpiFix Offload: CAM boot with plantar offloading padding Vascular: Palpable pedal pulses bilateral. LEAS obtained and reviewed from 01/17/2023 demonstrating no significant arterial occlusive disease. She is noted to have mild arterial disease of the popliteal/SFA bilateral. On Doppler DP and PT are triphasic bilateral. Edema: No edema noted Infection: No signs of infection Pain: May take [id number] Tylenol for discomfort Host factors: DM type II with peripheral polyneuropathy, hallux limitus right foot, hallux malleus right foot, morbid obesity, equinus deformity all complicated healing potential I answered all the patient's questions. To return to the wound healing center in 1 week or call sooner if the patient has any questions or concerns.
[2023-02-15 09:19] VITALS: BP 180/99; PULSE 99; RESP 20; TEMP 36.9; BMI 41.8
--- NOTE | 2023-02-15 09:30 | PCM.WC.PN ---
History of Present Illness Date of Service: 02/15/23 Chief Complaint: Diabetic foot ulceration, right metatarsal-phalangeal joint, plantar surface History of Wound: This is a 58-year-old, morbidly-obese, diabetic female who presents with a large ulceration on the right great toe. The ulceration is located at the right first metatarsophalangeal joint, on the plantar surface. It has been present for approximately 4 months. According to the patient, it originated as a callus, and she ripped off the skin. She has been using Watkin's salve topically. The patient does not see a pizza cook on a regular basis. Her BMI is 41.8. She denies a history of smoking. She also denies a history of myocardial infarction, congestive heart failure, cerebrovascular accident, pulmonary disease, renal disease, and thyroid disease. Most recent hemoglobin A1c was 7.0 in September,. Laboratory studies obtained recently, dated January 03, 2023, are as follows: White blood count 8.7, hemoglobin 13.5, hematocrit 41.4, platelets 308,000, sodium 138, potassium 4.0, chloride 101, BUN 14, creatinine 0.65, glucose 140, calcium 9.3, bilirubin 0.40, AST 19, ALT 24, alkaline phosphatase 107, protein 7.8, albumin 3.3. Subjective Subjective This is a 58-year-old diabetic female who presents to the wound care center today for follow-up of a plantar first metatarsal head ulceration of the right foot. Graft in place the wound site. She states she did not change the outer dressings despite heavy drainage as she was scared to do this herself. She states she has continued to offload in the CAM boot with plantar offloading padding. She denies any constitutional symptoms. She denies further complaints. Objective Data Objective Data Vital Signs: Vital Signs Temp Pulse Resp BP 98.5 F 99 20 H 180/99 H 02/15/23 09:19 02/15/23 09:19 02/15/23 09:19 02/15/23 09:19 Weight: 110.677 kg Body Mass Index (BMI) 41.8 Physical Exam Const alert, oriented x3, no apparent distress and well nourished General Appearance: cooperative HEENT normocephalic Eyes General Eye: normal appearance of both eyes Neck General: normal visual inspection Lymph Lymphatic: no lymphadenopathy noted and no lymphedema noted Resp normal respiratory effort Cardio regular rate and regular rhythm Extremity normal capillary refill, no joint enlargement, no calf tenderness and no pedal edema Extremity Narrative: DP and PT pulses palpable bilateral. Capillary fill time to the digits less than 5 seconds bilateral. Hair growth diminished to the digits bilateral. Dermatological: Skin appears well-hydrated with normal turgor. Hyperkeratotic tissue Sub first metatarsal head of the left foot with no evidence of open wound. There is a large ulceration noted to the plantar aspect of the first metatarsal head of the right foot with surrounding hyperkeratotic tissue and maceration. Wound bed demonstrates granular tissue. No purulent drainage, no malodor, no palpable fluctuance/bogginess, no visible abscess formation, no lymphangitic streaking. Ulceration does not probe to bone. Musculoskeletal: Muscle strength 5 of 5 age-appropriate. She does demonstrate decreased range of motion of the first metatarsophalangeal joint bilateral without pain or crepitus. Decreased range of motion of the ankle joint in dorsiflexion with the knee extended without pain or crepitus bilateral. Hammertoe deformity of the right hallux. No pain to palpation about the ulcerative site plantar first metatarsal head right foot. Skin no rashes or lesions noted, skin turgor normal and no jaundice Neuro moves all extremities Neuro Narrative: Diminished protective sensation bilateral secondary to diabetic peripheral polyneuropathy Debridement Note Debridement Note Wound debrided: Subfirst metatarsal head Laterality: Right Wound Grade/Stage: Nichols stage I Type of Debridement: Excisional debridement Anesthesia Used: 5% Lidocaine Gel Depth: Down to and including healthy tissue and in the subcutaneous layer Percentage of wound debrided: 100 Instrument Used: 5mm curette Tissue Removed: Fibrous, devitalized subcutaneous, biofilm, slough Severity: Fat Layer Exposed Amount of bleeding with debridement: Mild Bleeding Controlled with: Compression and gauze Patient tolerated procedure: Patient tolerated procedure well Post-Debridement Measurements and Additional Note: Post-Debridement Measurements/Treatment RADHA - Nurse 1 - General Ulcer Assessment Start: 02/08/23 09:06 Freq: Status: Active Protocol: LOWEXT Activity Type Activity Date Activity User E-sign Co-sign Detail Recorded Client Recorded Date Recorded By Document 02/08/23 09:08 BRYANT [id number] 02/08/23 09:17 BRYANT Document 02/15/23 09:19 PL [id number] 02/15/23 09:24 PL 02/08/23 02/15/23 09:08 09:19 - Today's Visit Information Type of service Follow-up Visit Follow-up Visit (Physician/ROLL WEIGHER (Physician/ROLL WEIGHER ) ) Arrival Mode Ambulatory Ambulatory Transfer Assistance None Patient Identification Verified (Name & Yes Yes ) Patient Requires Transmission-Based No No Precautions Safety Precautions NA Height and Weight Body Mass Index (BMI) 41.8 41.8 BMI Classification Obese Obese Vital Signs Temperature (97.8 F-99.1 F) 96.7 F L 98.5 F Temperature Source Temporal Temporal Pulse Rate (60-100) 99 Respiratory Rate (12-18) 18 20 H Respiratory rate source Observation Blood Pressure (90/60-120/80) 180/99 H Blood Pressure Mean (mm Hg) 126 History Since Last Visit- (Skip if this is Patient's initial visit) Have you changed medications since your No last visit? Any new allergies or adverse reactions No Had a fall/change in ADL's that may No increase risk of falls Signs or symptoms of abuse and/or No neglect since last visit Have you been in the hospital since your No last visit? Has dressing in place as prescribed Yes Has compression in place as prescribed N/A Has offloadiing in place as prescribed Yes Experienced any changes in pain level or No management Pain Scale: 0-10 Numeric Is Patient Pain Free? Yes Yes - Nurse 1 - General Ulcer Measurement Start: 02/08/23 09:06 Freq: Status: Active Protocol: Activity Type Activity Date Activity User E-sign Co-sign Detail Recorded Client Recorded Date Recorded By Document 02/08/23 09:08 [id number] 02/08/23 09:17 BRYANT 02/08/23 09:08 Wound Center Nurse 1 2-right 5th metatarsal foot -Combined with other wound No -Current Size (cm) - Length 0.4 -Current Size (cm) - Width 0.6 -Current Size (cm) - Depth 0.2 -Total Square Cm 0.24 -Photo Taken Yes -Epithelialization Small 1-33% -Tunneling No -Undermining/Tunneling No -Circular Undermining No -Exudate Amt Small -Exudate Type Serosanguineous -Wound Margin Flat & Intact -Granulation Amt Large (67-100%) -Granulation Quality Red -Slough/Fibrin Yes -Necrosis Amt Small (1-33%) -Necrotic Tissue Type Adherent Slough -Structure Exposed N/A -Texture (Kelsie-wound Skin Appearance) Assessed, Excoriation -Moisture (Kelsie-wound Skin Appearance) Assessed,Dry/ Scaly -Color (Kelsei-wound Skin Appearance) Assessed -Temperature (Kelsie-wound Skin No Abnormality Appearance) (Pt Warm) -Tenderness on Palpation (Kelsie-wound No Skin Appearance) -Foul Odor after Cleansing No -Anesthetic Used 5% Lidocaine Gel #1 right plantar foot -Combined with other wound No -Current Size (cm) - Length 2.1 -Current Size (cm) - Width 2.4 -Current Size (cm) - Depth 0.2 -Total Square Cm 5.04 -Photo Taken Yes -Epithelialization Small 1-33% -Tunneling No -Undermining/Tunneling No -Circular Undermining No -Exudate Amt Medium -Exudate Type Serosanguineous -Wound Margin Flat & Intact -Granulation Amt Large (67-100%) -Granulation Quality Red -Slough/Fibrin Yes -Necrosis Amt Small (1-33%) -Necrotic Tissue Type Adherent Slough -Structure Exposed N/A -Texture (Kelsie-wound Skin Appearance) Assessed,Callus -Moisture (Kelsie-wound Skin Appearance) Assessed,Dry/ Scaly -Color (Kelsie-wound Skin Appearance) Assessed -Temperature (Kelsie-wound Skin No Abnormality Appearance) (Pt Warm) -Tenderness on Palpation (Kelsie-wound No Skin Appearance) -Ulcer Cleansing Rinsed/ Irrigated with Saline -Foul Odor after Cleansing No -Anesthetic Used 5% Lidocaine Gel Lower Limb Edema Present NA WC - Nurse 2 - General Ulcer CM Notes Start: 02/08/23 09:06 Freq: Status: Active Protocol: Activity Type Activity Date Activity User E-sign Co-sign Detail Recorded Client Recorded Date Recorded By Document 02/08/23 14:17 DARVIN [id number] 02/08/23 14:21 DARVIN 02/08/23 14:17 Wound Center Nurse 2 2-right 5th metatarsal foot -Time 09:34 -Correct Patient Yes -Correct Side, Site, Position Yes -Correct Procedure Yes -Procedure Performed Yes -Type of Procedure Debridement -Clinical Debridement Subcutaneous -Tissue Removed Subcutaneous -Post Debridement (cm) - Length 0.5 -Post Debridement (cm) - Width 0.5 -Post Debridement (cm) - Depth 0.1 -Total Square (Post) (cm) 0.25 -Area of Debridement (cm) - Length 0.5 -Area of Debridement (cm) - Width 0.5 -Total Square (Area) (cm) 0.25 -Tunneling No -Undermining/Tunneling No -Circular Undermining No -Wound/Ulcer Outcome Not Healed -Ulcer Cleansing Rinsed/ Irrigated with Saline -Foul Odor after Cleansing No -Bioengineered Tissue No -Bleeding Controlled with Pressure -Treatment Response Procedure Tolerated Well -Debridement - Subq, 1st 20sq cm Yes #1 right plantar foot -Time 09:34 -Correct Patient Yes -Correct Side, Site, Position Yes -Correct Procedure Yes -Procedure Performed Yes -Type of Procedure Debridement -Clinical Debridement Subcutaneous -Tissue Removed Subcutaneous -Post Debridement (cm) - Length 2.1 -Post Debridement (cm) - Width 2.5 -Post Debridement (cm) - Depth 0.2 -Total Square (Post) (cm) 5.25 -Area of Debridement (cm) - Length 2.1 -Area of Debridement (cm) - Width 2.5 -Total Square (Area) (cm) 5.25 -Tunneling No -Undermining/Tunneling No -Circular Undermining No -Wound/Ulcer Outcome Not Healed -Ulcer Cleansing Rinsed/ Irrigated with Saline -Foul Odor after Cleansing No -Bioengineered Tissue Yes -Type of Bioengineered Tissue Epifix Mesh -Expiration Date 10/08/27 -Product Lot Number [id number] -Percent Used 100 -Bleeding Controlled with Pressure -Treatment Response Procedure Tolerated Well -Debridement - Subq, 1st 20sq cm No -Apply Skin Sub - 1st 25 sq cm - Feet 1 -Epifix Mesh (per sq cm) 11 Pain Scale: 0-10 Numeric Is Patient Pain Free? Yes RADHA - Nurse 3 - General Ulcer D/C NN Start: 02/08/23 09:06 Freq: Status: Active Protocol: Activity Type Activity Date Activity User E-sign Co-sign Detail Recorded Client Recorded Date Recorded By Document 02/08/23 09:54 BRYANT [id number] 02/08/23 09:55 BRYANT 02/08/23 09:54 Wound Care Center Nurse 3 2-right 5th metatarsal foot -Ulcer Cleansing Rinsed/ Irrigated with Saline -Foul Odor after Cleansing No -Primary Dressing Covered/Secured with Dry Gauze & Roll Gauze, Secured with Tape #1 right plantar foot -Ulcer Cleansing Rinsed/ Irrigated with Saline -Foul Odor after Cleansing No -Primary Dressing Covered/Secured with Dry Gauze & Roll Gauze, Secured with Tape Pain Scale: 0-10 Numeric Is Patient Pain Free? Yes WC - Visit Discharge Discharge Condition Stable Ambulatory Status Ambulatory Transportation Private Auto Medication Reconcilliation completed & Yes provided to patient/care provider Clinical Summary of Care Provided Yes Assessment/Plan Assessment/Plan (1) Gastrocnemius equinus of right lower extremity: CODE(S): M21.861 - Other specified acquired deformities of right lower leg (2) Non-pressure chronic ulcer of other part of right foot with fat layer exposed: CODE(S): L97.512 - Non-pressure chronic ulcer of other part of right foot with fat layer exposed (3) Acquired hallux limitus of right foot: CODE(S): M20.5X1 - Other deformities of toe(s) (acquired), right foot (4) Hallux malleus of right foot: CODE(S): M20.31 - Hallux varus (acquired), right foot (5) Type 2 diabetes mellitus with foot ulcer: CODE(S): E11.621 - Type 2 diabetes mellitus with foot ulcer; L97.509 - Non-pressure chronic ulcer of other part of unspecified foot with unspecified severity (6) Diabetes mellitus with diabetic polyneuropathy: CODE(S): E11.42 - Type 2 diabetes mellitus with diabetic polyneuropathy (7) Diabetic foot ulcer associated with diabetes mellitus due to underlying condition: CODE(S): E08.621 - Diabetes mellitus due to underlying condition with foot ulcer; L97.509 - Non-pressure chronic ulcer of other part of unspecified foot with unspecified severity QUALIFIERS: Diabetic foot ulcer location: toe Laterality: right Non-pressure ulcer stage: with fat layer exposed Qualified Code(s): E08.621 - Diabetes mellitus due to underlying condition with foot ulcer; L97.512 - Non-pressure chronic ulcer of other part of right foot with fat layer exposed (8) Hypertension: CODE(S): I10 - Essential (primary) hypertension (9) Hyperlipidemia: CODE(S): E78.5 - Hyperlipidemia, unspecified (10) Morbid obesity with BMI of 40.0-44.9, adult: CODE(S): E66.01 - Morbid (severe) obesity due to excess calories; Z68.41 - Body mass index [BMI] 40.0-44.9, adult PLAN: Plan Patient seen and evaluated. Patient was ambulating CAM boot with plantar offloading padding today I have reviewed the LEAS performed 01/17/2023 demonstrating: Left foot triphasic DP and PT on Doppler; Indices left foot PT- 1.05. DP 1.03, Digit 0.91; right foot triphasic DP and PT on Doppler; Indices foot PT 1.10, DP 1.16, digit noncompressible. PVR diminished at ankle and digit on left with noncompressible digit right foot. Impression no evidence of significant occlusive arterial disease. Reviewed diagnostic data from 01/17/2023 demonstrating WBC of 8.7 Radiographic imaging obtained 01/17/2023 demonstrating no evidence of osteomyelitis. I have reviewed this imaging and concur with the radiographic read. I have reviewed her culture results which were obtained 01/17/2023 demonstrating: Providencia rettgeri, Staph aureus, Stap agalactaie, and Kocuria kristinae. She was prescribed Augmentin [address] Omar MD. 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 She did curing pickling packer antibiotic and has completed antibiotic course. Ulceration underwent debridement as noted in the clinical panel above. Ulcerative site demonstrates healthy granular base with surrounding hyperkeratosis and maceration. No signs of infection. Ulceration measures 2.3 cm x 2.1 cm x 0.2 cm. EpiFix #2 applied to ulcerative base and dressed with Adaptic touch, anchored with Steri-Strips. Dry sterile dressing applied. She was instructed to change outer dressings as needed due to significant drainage. She was instructed to not get the site wet. She was instructed to stay off feet as much as possible to continue to aid in pressure reduction to the ulcerative site. Ulceration demonstrates no change in size with current offloading versus previous visit. Change of offloading padding was performed today due to significant drainage and wearing down of offloading padding. She was instructed to continue offloading in CAM boot for the right lower extremity with plantar offloading padding for first metatarsal head. She was instructed to weight-bear in the CAM boot at all times and not to wear flip-flops. She may remove the boot for shower purposes and sleeping. She voices understanding of this. Discussed that pressure reduction to the site is essential for her healing status. Discussed proper diabetic diet to maintain tight glycemic control. Last A1c 09/2022 was 7.0%. Discussed continued diet and exercise along with lifestyle modification/weight loss to aid in healthy lifestyle. Discussed importance of daily foot checks. Discussed adequate protein intake to aid in wound healing. She may take Jeremy supplementation to aid in wound healing. Discussed being diabetic she is never to go barefoot and should wear closed toed shoes at all times. Discussed with her socks is considered barefoot. Encouraged shoe gear to be worn at all times. She voices understanding of this today. Recommend diabetic shoes with plantar offloading padding once ulceration has healed. Discussed signs and symptoms of infection. Discussed if she notices redness about the ulcerative site that moves to the top of the foot and up the foot, purulent drainage from the wound site, increasing foul odor, or if she experiences fever greater than 101 degree, nausea, vomiting, chills that these are signs of a progressing infection and she should report to the ED for IV antibiotics. She voices understanding of this today. The following work up and care recommendations were made: Dressing: EpiFix, Adaptic touch, Steri-Strips, dry sterile dressing. Change outer dressings as needed. Wash: Do not get wet Tissue growth optimization: EpiFix Offload: CAM boot with plantar offloading padding Vascular: Palpable pedal pulses bilateral. LEAS obtained and reviewed from 01/17/2023 demonstrating no significant arterial occlusive disease. She is noted to have mild arterial disease of the popliteal/SFA bilateral. On Doppler DP and PT are triphasic bilateral. Edema: No edema noted Infection: No signs of infection Pain: May take [id number] Tylenol for discomfort Host factors: DM type II with peripheral polyneuropathy, hallux limitus right foot, hallux malleus right foot, morbid obesity, equinus deformity all complicated healing potential I answered all the patient's questions. To return to the wound healing center in 1 week or call sooner if the patient has any questions or concerns.
[2023-02-22 09:18] VITALS: BP 173/75; PULSE 82; RESP 22; TEMP 36.5; BMI 41.8
--- NOTE | 2023-02-22 11:48 | PCM.WC.PN ---
History of Present Illness Date of Service: 02/22/23 Chief Complaint: Diabetic foot ulceration, right metatarsal-phalangeal joint, plantar surface History of Wound: This is a 58-year-old, morbidly-obese, diabetic female who presents with a large ulceration on the right great toe. The ulceration is located at the right first metatarsophalangeal joint, on the plantar surface. It has been present for approximately 4 months. According to the patient, it originated as a callus, and she ripped off the skin. She has been using Watkin's salve topically. The patient does not see a technology teacher on a regular basis. Her BMI is 41.8. She denies a history of smoking. She also denies a history of myocardial infarction, congestive heart failure, cerebrovascular accident, pulmonary disease, renal disease, and thyroid disease. Most recent hemoglobin A1c was 7.0 in September,. Laboratory studies obtained recently, dated January 03, 2023, are as follows: White blood count 8.7, hemoglobin 13.5, hematocrit 41.4, platelets 308,000, sodium 138, potassium 4.0, chloride 101, BUN 14, creatinine 0.65, glucose 140, calcium 9.3, bilirubin 0.40, AST 19, ALT 24, alkaline phosphatase 107, protein 7.8, albumin 3.3. Subjective Subjective This is a 58-year-old diabetic female who presents to the wound care center today for follow-up of a plantar first metatarsal head ulceration of the right foot. Graft in place the wound site. She states she is now changing outer dressings daily. She has continued to offload in the CAM boot with plantar offloading padding. She denies any constitutional symptoms. She denies further complaints. Objective Data Objective Data Vital Signs: Vital Signs Temp Pulse Resp BP 97.7 F L 82 22 H 173/75 H 02/22/23 09:18 02/22/23 09:18 02/22/23 09:18 02/22/23 09:18 Weight: 110.677 kg Body Mass Index (BMI) 41.8 Physical Exam Const alert, oriented x3, no apparent distress and well nourished General Appearance: cooperative HEENT normocephalic Eyes General Eye: normal appearance of both eyes Neck General: normal visual inspection Lymph Lymphatic: no lymphadenopathy noted and no lymphedema noted Resp normal respiratory effort Cardio regular rate and regular rhythm Extremity normal capillary refill, no joint enlargement, no calf tenderness and no pedal edema Extremity Narrative: DP and PT pulses palpable bilateral. Capillary fill time to the digits less than 5 seconds bilateral. Hair growth diminished to the digits bilateral. Dermatological: Skin appears well-hydrated with normal turgor. Hyperkeratotic tissue Sub first metatarsal head of the left foot with no evidence of open wound. There is a large ulceration noted to the plantar aspect of the first metatarsal head of the right foot with surrounding hyperkeratotic tissue and maceration. Wound bed demonstrates granular tissue. No purulent drainage, no malodor, no palpable fluctuance/bogginess, no visible abscess formation, no lymphangitic streaking. Ulceration does not probe to bone. Musculoskeletal: Muscle strength 5 of 5 age-appropriate. She does demonstrate decreased range of motion of the first metatarsophalangeal joint bilateral without pain or crepitus. Decreased range of motion of the ankle joint in dorsiflexion with the knee extended without pain or crepitus bilateral. Hammertoe deformity of the right hallux. No pain to palpation about the ulcerative site plantar first metatarsal head right foot. Skin no rashes or lesions noted, skin turgor normal and no jaundice Neuro moves all extremities Neuro Narrative: Diminished protective sensation bilateral secondary to diabetic peripheral polyneuropathy Debridement Note Debridement Note Wound debrided: Sub first metatarsal head Laterality: Right Wound Grade/Stage: Nichols stage I Type of Debridement: Excisional debridement Anesthesia Used: 5% Lidocaine Gel Depth: Down to and including healthy tissue and in the subcutaneous layer Percentage of wound debrided: 100 Instrument Used: 5mm curette Tissue Removed: Fibrous, devitalized subcutaneous, biofilm, slough Severity: Fat Layer Exposed Amount of bleeding with debridement: Mild Bleeding Controlled with: Compression and gauze Patient tolerated procedure: Patient tolerated procedure well Post-Debridement Measurements and Additional Note: Post-Debridement Measurements/Treatment RADHA - Nurse 1 - General Ulcer Assessment Start: 02/08/23 09:06 Freq: Status: Active Protocol: JAXSON Activity Type Activity Date Activity User E-sign Co-sign Detail Recorded Client Recorded Date Recorded By Document 02/08/23 09:08 BRYANT [id number] 02/08/23 09:17 JF Document 02/15/23 09:19 DARVIN [id number] 02/15/23 09:24 PL Document 02/22/23 09:18 DL [id number] 02/22/23 09:26 DL 02/08/23 02/15/23 02/22/23 09:08 09:19 09:18 - Today's Visit Information Type of service Follow-up Visit Follow-up Visit Follow-up Visit (Physician/CONFIGURATION MANAGEMENT MANAGER (Physician/CONFIGURATION MANAGEMENT MANAGER (Physician/CONFIGURATION MANAGEMENT MANAGER ) ) ) Arrival Mode Ambulatory Ambulatory Ambulatory Transfer Assistance None None Patient Identification Verified (Name & Yes Yes Yes ) Patient Requires Transmission-Based No No No Precautions Safety Precautions NA Height and Weight Body Mass Index (BMI) 41.8 41.8 41.8 BMI Classification Obese Obese Obese Vital Signs Temperature (97.8 F-99.1 F) 96.7 F L 98.5 F 97.7 F L Temperature Source Temporal Temporal Temporal Pulse Rate (60-100) 99 82 Pulse Location Monitor Respiratory Rate (12-18) 18 20 H 22 H Respiratory rate source Observation Observation Blood Pressure (90/60-120/80) 180/99 H 173/75 H Blood Pressure Mean (mm Hg) 126 107 Source Monitor History Since Last Visit- (Skip if this is Patient's initial visit) Have you changed medications since your No No last visit? Any new allergies or adverse reactions No No Had a fall/change in ADL's that may No No increase risk of falls Signs or symptoms of abuse and/or No No neglect since last visit Have you been in the hospital since your No No last visit? Has dressing in place as prescribed Yes Yes Has compression in place as prescribed N/A N/A Has offloadiing in place as prescribed Yes Yes Experienced any changes in pain level or No No management Left Footwear Removable Cast Walker/Walking Boot Pain Scale: 0-10 Numeric Is Patient Pain Free? Yes Yes Yes - Nurse 1 - General Ulcer Measurement Start: 02/08/23 09:06 Freq: Status: Active Protocol: Activity Type Activity Date Activity User E-sign Co-sign Detail Recorded Client Recorded Date Recorded By Document 02/08/23 09:08 BRYANT [id number] 02/08/23 09:17 JF Document 02/22/23 09:18 DL [id number] 02/22/23 09:26 DL 02/08/23 02/22/23 09:08 09:18 Wound Center Nurse 1 2-right 5th metatarsal foot -Combined with other wound No -Current Size (cm) - Length 0.4 -Current Size (cm) - Width 0.6 -Current Size (cm) - Depth 0.2 -Total Square Cm 0.24 -Photo Taken Yes -Epithelialization Small 1-33% -Tunneling No -Undermining/Tunneling No -Circular Undermining No -Exudate Amt Small -Exudate Type Serosanguineous -Wound Margin Flat & Intact -Granulation Amt Large (67-100%) -Granulation Quality Red -Slough/Fibrin Yes -Necrosis Amt Small (1-33%) -Necrotic Tissue Type Adherent Slough -Structure Exposed N/A -Texture (Kelsie-wound Skin Appearance) Assessed, Excoriation -Moisture (Kelsie-wound Skin Appearance) Assessed,Dry/ Scaly -Color (Kelsie-wound Skin Appearance) Assessed -Temperature (Kelsie-wound Skin No Abnormality Appearance) (Pt Warm) -Tenderness on Palpation (Kelsie-wound No Skin Appearance) -Foul Odor after Cleansing No -Anesthetic Used 5% Lidocaine Gel #1 right plantar foot -Combined with other wound No -Current Size (cm) - Length 2.1 1.9 -Current Size (cm) - Width 2.4 2.1 -Current Size (cm) - Depth 0.2 0.5 -Total Square Cm 5.04 3.99 -Photo Taken Yes -Epithelialization Small 1-33% -Tunneling No -Undermining/Tunneling No -Circular Undermining No -Exudate Amt Medium Large -Exudate Type Serosanguineous Serosanguineous -Wound Margin Flat & Intact Thickened -Granulation Amt Large (67-100%) Large (67-100%) -Granulation Quality Red Red -Slough/Fibrin Yes -Necrosis Amt Small (1-33%) Small (1-33%) -Necrotic Tissue Type Adherent Slough Adherent Slough -Structure Exposed N/A N/A -Texture (Kelsie-wound Skin Appearance) Assessed,Callus Callus, Localized Edema ,Rash -Moisture (Kelsie-wound Skin Appearance) Assessed,Dry/ Maceration Scaly -Color (Kelsie-wound Skin Appearance) Assessed No Abnormality -Temperature (Kelsie-wound Skin No Abnormality No Abnormality Appearance) (Pt Warm) (Pt Warm) -Tenderness on Palpation (Kelsie-wound No No Skin Appearance) -Ulcer Cleansing Rinsed/ Soap and Water Irrigated with Saline -Foul Odor after Cleansing No No -Anesthetic Used 5% Lidocaine 5% Lidocaine Gel Gel Lower Limb Edema Present NA WC - Nurse 2 - General Ulcer CM Notes Start: 02/08/23 09:06 Freq: Status: Active Protocol: Activity Type Activity Date Activity User E-sign Co-sign Detail Recorded Client Recorded Date Recorded By Document 02/08/23 14:17 PL [id number] 02/08/23 14:21 PL Document 02/15/23 12:20 PL [id number] 02/15/23 12:21 PL 02/08/23 02/15/23 14:17 12:20 Wound Center Nurse 2 2-right 5th metatarsal foot -Time 09:34 -Correct Patient Yes -Correct Side, Site, Position Yes -Correct Procedure Yes -Procedure Performed Yes -Type of Procedure Debridement -Clinical Debridement Subcutaneous -Tissue Removed Subcutaneous -Post Debridement (cm) - Length 0.5 -Post Debridement (cm) - Width 0.5 -Post Debridement (cm) - Depth 0.1 -Total Square (Post) (cm) 0.25 -Area of Debridement (cm) - Length 0.5 -Area of Debridement (cm) - Width 0.5 -Total Square (Area) (cm) 0.25 -Tunneling No -Undermining/Tunneling No -Circular Undermining No -Wound/Ulcer Outcome Not Healed -Ulcer Cleansing Rinsed/ Irrigated with Saline -Foul Odor after Cleansing No -Bioengineered Tissue No -Bleeding Controlled with Pressure -Treatment Response Procedure Tolerated Well -Debridement - Subq, 1st 20sq cm Yes #1 right plantar foot -Time 09:34 09:43 -Correct Patient Yes Yes -Correct Side, Site, Position Yes Yes -Correct Procedure Yes Yes -Procedure Performed Yes Yes -Type of Procedure Debridement Debridement -Clinical Debridement Subcutaneous Subcutaneous -Tissue Removed Subcutaneous Subcutaneous -Post Debridement (cm) - Length 2.1 2.3 -Post Debridement (cm) - Width 2.5 2.1 -Post Debridement (cm) - Depth 0.2 0.3 -Total Square (Post) (cm) 5.25 4.83 -Area of Debridement (cm) - Length 2.1 2.3 -Area of Debridement (cm) - Width 2.5 2.1 -Total Square (Area) (cm) 5.25 4.83 -Tunneling No No -Undermining/Tunneling No No -Circular Undermining No No -Wound/Ulcer Outcome Not Healed Not Healed -Ulcer Cleansing Rinsed/ Rinsed/ Irrigated with Irrigated with Saline Saline -Foul Odor after Cleansing No No -Bioengineered Tissue Yes Yes -Type of Bioengineered Tissue Epifix Mesh Epifix Mesh -Expiration Date 10/08/27 11/07/27 -Product Lot Number [id number] -Percent Used 100 100 -Bleeding Controlled with Pressure Pressure -Treatment Response Procedure Procedure Tolerated Well Tolerated Well -Debridement - Subq, 1st 20sq cm No No -Apply Skin Sub - 1st 25 sq cm - Legs 1 -Apply Skin Sub - 1st 25 sq cm - Feet 1 -Epifix Mesh (per sq cm) 11 11 Pain Scale: 0-10 Numeric Is Patient Pain Free? Yes Yes - Nurse 3 - General Ulcer D/C NN Start: 02/08/23 09:06 Freq: Status: Active Protocol: Activity Type Activity Date Activity User E-sign Co-sign Detail Recorded Client Recorded Date Recorded By Document 02/08/23 09:54 [id number] 02/08/23 09:55 Document 02/15/23 11:46 DL [id number] 02/15/23 11:48 DL 02/08/23 02/15/23 09:54 11:46 Wound Care Center Nurse 3 2-right 5th metatarsal foot -Ulcer Cleansing Rinsed/ Irrigated with Saline -Foul Odor after Cleansing No -Primary Dressing Covered/Secured with Dry Gauze & Roll Gauze, Secured with Tape #1 right plantar foot -Ulcer Cleansing Rinsed/ Not Cleansed Irrigated with Saline -Foul Odor after Cleansing No -Other Dressing EpiMesh -Primary Dressing Covered/Secured with Dry Gauze & Dry Gauze & Roll Gauze, Roll Gauze, Secured with Secured with Tape Tape -Other Covering ABD Treatment Response Procedure Tolerated Well Pain Scale: 0-10 Numeric Is Patient Pain Free? Yes Yes - Visit Discharge Discharge Condition Stable Stable Ambulatory Status Ambulatory Ambulatory Transportation Private Auto Private Auto Medication Reconcilliation completed & Yes provided to patient/care provider Clinical Summary of Care Provided Yes Facility Type Home Health Orders Sent Yes Assessment/Plan Assessment/Plan (1) Gastrocnemius equinus of right lower extremity: CODE(S): M21.861 - Other specified acquired deformities of right lower leg (2) Non-pressure chronic ulcer of other part of right foot with fat layer exposed: CODE(S): L97.512 - Non-pressure chronic ulcer of other part of right foot with fat layer exposed (3) Acquired hallux limitus of right foot: CODE(S): M20.5X1 - Other deformities of toe(s) (acquired), right foot (4) Hallux malleus of right foot: CODE(S): M20.31 - Hallux varus (acquired), right foot (5) Type 2 diabetes mellitus with foot ulcer: CODE(S): E11.621 - Type 2 diabetes mellitus with foot ulcer; L97.509 - Non-pressure chronic ulcer of other part of unspecified foot with unspecified severity (6) Diabetes mellitus with diabetic polyneuropathy: CODE(S): E11.42 - Type 2 diabetes mellitus with diabetic polyneuropathy (7) Diabetic foot ulcer associated with diabetes mellitus due to underlying condition: CODE(S): E08.621 - Diabetes mellitus due to underlying condition with foot ulcer; L97.509 - Non-pressure chronic ulcer of other part of unspecified foot with unspecified severity QUALIFIERS: Diabetic foot ulcer location: toe Laterality: right Non-pressure ulcer stage: with fat layer exposed Qualified Code(s): E08.621 - Diabetes mellitus due to underlying condition with foot ulcer; L97.512 - Non-pressure chronic ulcer of other part of right foot with fat layer exposed (8) Hypertension: CODE(S): I10 - Essential (primary) hypertension (9) Hyperlipidemia: CODE(S): E78.5 - Hyperlipidemia, unspecified (10) Morbid obesity with BMI of 40.0-44.9, adult: CODE(S): E66.01 - Morbid (severe) obesity due to excess calories; Z68.41 - Body mass index [BMI] 40.0-44.9, adult PLAN: Plan Patient seen and evaluated. Patient was ambulating CAM boot with plantar offloading padding today I have reviewed the LEAS performed 01/17/2023 demonstrating: Left foot triphasic DP and PT on Doppler; Indices left foot PT- 1.05. DP 1.03, Digit 0.91; right foot triphasic DP and PT on Doppler; Indices foot PT 1.10, DP 1.16, digit noncompressible. PVR diminished at ankle and digit on left with noncompressible digit right foot. Impression no evidence of significant occlusive arterial disease. Reviewed diagnostic data from 01/17/2023 demonstrating WBC of 8.7 Radiographic imaging obtained 01/17/2023 demonstrating no evidence of osteomyelitis. I have reviewed this imaging and concur with the radiographic read. I have reviewed her culture results which were obtained 01/17/2023 demonstrating: Providencia rettgeri, Staph aureus, Stap agalactaie, and Kocuria kristinae. She was prescribed Augmentin [address] Omar MD. Patient however states she never realized prescription was phoned in for her to pharmacy picking tech and had not been taking the antibiotic. She did pharmacy picking tech antibiotic and has completed antibiotic course. Ulceration underwent debridement as noted in the clinical panel above. Ulcerative site demonstrates healthy granular base with surrounding hyperkeratosis and maceration. No signs of infection. Ulceration measures 2.0 cm x 2.0 cm x 0.1 cm. EpiFix #3 applied to ulcerative base and dressed with Adaptic touch, anchored with Steri-Strips. Dry sterile dressing applied. She was instructed to change outer dressings as needed due to significant drainage. She was instructed to not get the site wet. Ulcerative site does demonstrate some reduction in size versus previous visit. She was instructed to stay off feet as much as possible to continue to aid in pressure reduction to the ulcerative site. Ulceration demonstrates no change in size with current offloading versus previous visit. Change of offloading padding was performed today due to significant drainage and wearing down of offloading padding. She was instructed to continue offloading in CAM boot for the right lower extremity with plantar offloading padding for first metatarsal head. She was instructed to weight-bear in the CAM boot at all times and not to wear flip-flops. She may remove the boot for shower purposes and sleeping. She voices understanding of this. Discussed that pressure reduction to the site is essential for her healing status. Discussed proper diabetic diet to maintain tight glycemic control. Last A1c 09/2022 was 7.0%. Discussed continued diet and exercise along with lifestyle modification/weight loss to aid in healthy lifestyle. Discussed importance of daily foot checks. Discussed adequate protein intake to aid in wound healing. She may take Jreemy supplementation to aid in wound healing. Discussed being diabetic she is never to go barefoot and should wear closed toed shoes at all times. Discussed with her socks is considered barefoot. Encouraged shoe gear to be worn at all times. She voices understanding of this today. Recommend diabetic shoes with plantar offloading padding once ulceration has healed. Discussed signs and symptoms of infection. Discussed if she notices redness about the ulcerative site that moves to the top of the foot and up the foot, purulent drainage from the wound site, increasing foul odor, or if she experiences fever greater than 101 degree, nausea, vomiting, chills that these are signs of a progressing infection and she should report to the ED for IV antibiotics. She voices understanding of this today. The following work up and care recommendations were made: Dressing: EpiFix, Adaptic touch, Steri-Strips, dry sterile dressing. Change outer dressings as needed. Wash: Do not get wet Tissue growth optimization: EpiFix Offload: CAM boot with plantar offloading padding Vascular: Palpable pedal pulses bilateral. LEAS obtained and reviewed from 01/17/2023 demonstrating no significant arterial occlusive disease. She is noted to have mild arterial disease of the popliteal/SFA bilateral. On Doppler DP and PT are triphasic bilateral. Edema: No edema noted Infection: No signs of infection Pain: May take [id number] Tylenol for discomfort Host factors: DM type II with peripheral polyneuropathy, hallux limitus right foot, hallux malleus right foot, morbid obesity, equinus deformity all complicated healing potential I answered all the patient's questions. To return to the wound healing center in 1 week or call sooner if the patient has any questions or concerns.
[2023-03-01 09:32] VITALS: BP 161/84; PULSE 72; RESP 20; TEMP 36.4; BMI 41.8
--- NOTE | 2023-03-01 10:25 | PCM.WC.PN ---
History of Present Illness Date of Service: 03/01/23 Chief Complaint: Diabetic foot ulceration, right metatarsal-phalangeal joint, plantar surface History of Wound: This is a 58-year-old, morbidly-obese, diabetic female who presents with a large ulceration on the right great toe. The ulceration is located at the right first metatarsophalangeal joint, on the plantar surface. It has been present for approximately 4 months. According to the patient, it originated as a callus, and she ripped off the skin. She has been using Watkin's salve topically. The patient does not see a plant reliability engineer on a regular basis. Her BMI is 41.8. She denies a history of smoking. She also denies a history of myocardial infarction, congestive heart failure, cerebrovascular accident, pulmonary disease, renal disease, and thyroid disease. Most recent hemoglobin A1c was 7.0 in September,. Laboratory studies obtained recently, dated January 03, 2023, are as follows: White blood count 8.7, hemoglobin 13.5, hematocrit 41.4, platelets 308,000, sodium 138, potassium 4.0, chloride 101, BUN 14, creatinine 0.65, glucose 140, calcium 9.3, bilirubin 0.40, AST 19, ALT 24, alkaline phosphatase 107, protein 7.8, albumin 3.3. Subjective Subjective This is a 58-year-old diabetic female who presents to the wound care center today for follow-up of a plantar first metatarsal head ulceration of the right foot. Graft in place the wound site. She is changing outer dressings daily. She has continued to offload in the CAM boot with plantar offloading padding. She denies any constitutional symptoms. She denies further complaints. Objective Data Objective Data Vital Signs: Vital Signs Temp Pulse Resp BP 97.5 F L 72 20 H 161/84 H 03/01/23 09:32 03/01/23 09:32 03/01/23 09:32 03/01/23 09:32 Weight: 110.677 kg Body Mass Index (BMI) 41.8 Physical Exam Const alert, oriented x3, no apparent distress and well nourished General Appearance: cooperative HEENT normocephalic Eyes General Eye: normal appearance of both eyes Neck General: normal visual inspection Lymph Lymphatic: no lymphadenopathy noted and no lymphedema noted Resp normal respiratory effort Cardio regular rate and regular rhythm Extremity normal capillary refill, no joint enlargement, no calf tenderness and no pedal edema Extremity Narrative: DP and PT pulses palpable bilateral. Capillary fill time to the digits less than 5 seconds bilateral. Hair growth diminished to the digits bilateral. Dermatological: Skin appears well-hydrated with normal turgor. Hyperkeratotic tissue Sub first metatarsal head of the left foot with no evidence of open wound. There is a large ulceration noted to the plantar aspect of the first metatarsal head of the right foot with surrounding hyperkeratotic tissue and maceration. Wound bed demonstrates granular tissue. No purulent drainage, no malodor, no palpable fluctuance/bogginess, no visible abscess formation, no lymphangitic streaking. Ulceration does not probe to bone. Musculoskeletal: Muscle strength 5 of 5 age-appropriate. She does demonstrate decreased range of motion of the first metatarsophalangeal joint bilateral without pain or crepitus. Decreased range of motion of the ankle joint in dorsiflexion with the knee extended without pain or crepitus bilateral. Hammertoe deformity of the right hallux. No pain to palpation about the ulcerative site plantar first metatarsal head right foot. Skin no rashes or lesions noted, skin turgor normal and no jaundice Neuro moves all extremities Neuro Narrative: Diminished protective sensation bilateral secondary to diabetic peripheral polyneuropathy Debridement Note Debridement Note Wound debrided: Sub first metatarsal head Laterality: Right Wound Grade/Stage: Nichols stage I Type of Debridement: Excisional debridement Anesthesia Used: 5% Lidocaine Gel Depth: Down to and including healthy tissue and in the subcutaneous layer Percentage of wound debrided: 100 Instrument Used: 5mm curette Tissue Removed: Fibrous, devitalized subcutaneous, biofilm, slough Severity: Fat Layer Exposed Amount of bleeding with debridement: Mild Bleeding Controlled with: Compression and gauze Patient tolerated procedure: Patient tolerated procedure well Post-Debridement Measurements and Additional Note: Post-Debridement Measurements/Treatment RADHA - Nurse 1 - General Ulcer Assessment Start: 02/08/23 09:06 Freq: Status: Active Protocol: HEIDEEXT Activity Type Activity Date Activity User E-sign Co-sign Detail Recorded Client Recorded Date Recorded By Document 02/08/23 09:08 BRYANT [id number] 02/08/23 09:17 JF Document 02/15/23 09:19 DARVIN [id number] 02/15/23 09:24 PL Document 02/22/23 09:18 DL [id number] 02/22/23 09:26 DL Document 03/01/23 09:32 DL [id number] 03/01/23 09:35 DL 02/08/23 02/15/23 02/22/23 09:08 09:19 09:18 WC - Today's Visit Information Type of service Follow-up Visit Follow-up Visit Follow-up Visit (Physician/DIE CASTER (Physician/DIE CASTER (Physician/DIE CASTER ) ) ) Arrival Mode Ambulatory Ambulatory Ambulatory Transfer Assistance None None Patient Identification Verified (Name & Yes Yes Yes ) Patient Requires Transmission-Based No No No Precautions Safety Precautions NA Height and Weight Body Mass Index (BMI) 41.8 41.8 41.8 BMI Classification Obese Obese Obese Vital Signs Temperature (97.8 F-99.1 F) 96.7 F L 98.5 F 97.7 F L Temperature Source Temporal Temporal Temporal Pulse Rate (60-100) 99 82 Pulse Location Monitor Respiratory Rate (12-18) 18 20 H 22 H Respiratory rate source Observation Observation Blood Pressure (90/60-120/80) 180/99 H 173/75 H Blood Pressure Mean (mm Hg) 126 107 Source Monitor History Since Last Visit- (Skip if this is Patient's initial visit) Have you changed medications since your No No last visit? Any new allergies or adverse reactions No No Had a fall/change in ADL's that may No No increase risk of falls Signs or symptoms of abuse and/or No No neglect since last visit Have you been in the hospital since your No No last visit? Has dressing in place as prescribed Yes Yes Has compression in place as prescribed N/A N/A Has offloadiing in place as prescribed Yes Yes Experienced any changes in pain level or No No management Left Footwear Removable Cast Walker/Walking Boot Pain Scale: 0-10 Numeric Is Patient Pain Free? Yes Yes Yes 03/01/23 09:32 WC - Today's Visit Information Type of service Follow-up Visit (Physician/DIE CASTER ) Arrival Mode Ambulatory Transfer Assistance None Patient Identification Verified (Name & Yes ) Patient Requires Transmission-Based No Precautions Safety Precautions Height and Weight Body Mass Index (BMI) 41.8 BMI Classification Obese Vital Signs Temperature (97.8 F-99.1 F) 97.5 F L Temperature Source Temporal Pulse Rate (60-100) 72 Pulse Location Monitor Respiratory Rate (12-18) 20 H Respiratory rate source Observation Blood Pressure (90/60-120/80) 161/84 H Blood Pressure Mean (mm Hg) 109 Source Monitor History Since Last Visit- (Skip if this is Patient's initial visit) Have you changed medications since your No last visit? Any new allergies or adverse reactions No Had a fall/change in ADL's that may No increase risk of falls Signs or symptoms of abuse and/or No neglect since last visit Have you been in the hospital since your No last visit? Has dressing in place as prescribed Yes Has compression in place as prescribed N/A Has offloadiing in place as prescribed Yes Experienced any changes in pain level or No management Left Footwear Pain Scale: 0-10 Numeric Is Patient Pain Free? Yes WC - Nurse 1 - General Ulcer Measurement Start: 02/08/23 09:06 Freq: Status: Active Protocol: Activity Type Activity Date Activity User E-sign Co-sign Detail Recorded Client Recorded Date Recorded By Document 02/08/23 09:08 [id number] 02/08/23 09:17 JF Document 02/22/23 09:18 DL [id number] 02/22/23 09:26 DL Document 03/01/23 09:32 DL [id number] 03/01/23 09:35 DL 02/08/23 02/22/23 03/01/23 09:08 09:18 09:32 Wound Center Nurse 1 2-right 5th metatarsal foot -Combined with other wound No -Current Size (cm) - Length 0.4 -Current Size (cm) - Width 0.6 -Current Size (cm) - Depth 0.2 -Total Square Cm 0.24 -Photo Taken Yes -Epithelialization Small 1-33% -Tunneling No -Undermining/Tunneling No -Circular Undermining No -Exudate Amt Small -Exudate Type Serosanguineous -Wound Margin Flat & Intact -Granulation Amt Large (67-100%) -Granulation Quality Red -Slough/Fibrin Yes -Necrosis Amt Small (1-33%) -Necrotic Tissue Type Adherent Slough -Structure Exposed N/A -Texture (Kelsie-wound Skin Appearance) Assessed, Excoriation -Moisture (Kelsie-wound Skin Appearance) Assessed,Dry/ Scaly -Color (Kelsie-wound Skin Appearance) Assessed -Temperature (Kelsie-wound Skin No Abnormality Appearance) (Pt Warm) -Tenderness on Palpation (Kelsie-wound No Skin Appearance) -Foul Odor after Cleansing No -Anesthetic Used 5% Lidocaine Gel #1 right plantar foot -Combined with other wound No -Current Size (cm) - Length 2.1 1.9 2 -Current Size (cm) - Width 2.4 2.1 2 -Current Size (cm) - Depth 0.2 0.5 0.2 -Total Square Cm 5.04 3.99 4 -Photo Taken Yes -Epithelialization Small 1-33% -Tunneling No -Undermining/Tunneling No -Circular Undermining No -Exudate Amt Medium Large Medium -Exudate Type Serosanguineous Serosanguineous Serosanguineous -Wound Margin Flat & Intact Thickened Thickened -Granulation Amt Large (67-100%) Large (67-100%) Large (67-100%) -Granulation Quality Red Red Red -Slough/Fibrin Yes -Necrosis Amt Small (1-33%) Small (1-33%) Small (1-33%) -Necrotic Tissue Type Adherent Slough Adherent Slough Adherent Slough -Structure Exposed N/A N/A N/A -Texture (Kelsie-wound Skin Appearance) Assessed,Callus Callus, Callus,Scarring Localized Edema ,Rash -Moisture (Kelsie-wound Skin Appearance) Assessed,Dry/ Maceration Maceration Scaly -Color (Kelsie-wound Skin Appearance) Assessed No Abnormality No Abnormality -Temperature (Kelsie-wound Skin No Abnormality No Abnormality No Abnormality Appearance) (Pt Warm) (Pt Warm) (Pt Warm) -Tenderness on Palpation (Kelsie-wound No No No Skin Appearance) -Ulcer Cleansing Rinsed/ Soap and Water Soap and Water Irrigated with Saline -Foul Odor after Cleansing No No No -Anesthetic Used 5% Lidocaine 5% Lidocaine 5% Lidocaine Gel Gel Gel Lower Limb Edema Present NA WC - Nurse 2 - General Ulcer CM Notes Start: 02/08/23 09:06 Freq: Status: Active Protocol: Activity Type Activity Date Activity User E-sign Co-sign Detail Recorded Client Recorded Date Recorded By Document 02/08/23 14:17 PL [id number] 02/08/23 14:21 PL Document 02/15/23 12:20 PL [id number] 02/15/23 12:21 PL Document 02/22/23 12:49 PL [id number] 02/22/23 12:50 PL 02/08/23 02/15/23 02/22/23 14:17 12:20 12:49 Wound Center Nurse 2 2-right 5th metatarsal foot -Time 09:34 -Correct Patient Yes -Correct Side, Site, Position Yes -Correct Procedure Yes -Procedure Performed Yes -Type of Procedure Debridement -Clinical Debridement Subcutaneous -Tissue Removed Subcutaneous -Post Debridement (cm) - Length 0.5 -Post Debridement (cm) - Width 0.5 -Post Debridement (cm) - Depth 0.1 -Total Square (Post) (cm) 0.25 -Area of Debridement (cm) - Length 0.5 -Area of Debridement (cm) - Width 0.5 -Total Square (Area) (cm) 0.25 -Tunneling No -Undermining/Tunneling No -Circular Undermining No -Wound/Ulcer Outcome Not Healed -Ulcer Cleansing Rinsed/ Irrigated with Saline -Foul Odor after Cleansing No -Bioengineered Tissue No -Bleeding Controlled with Pressure -Treatment Response Procedure Tolerated Well -Debridement - Subq, 1st 20sq cm Yes #1 right plantar foot -Time 09:34 09:43 09:47 -Correct Patient Yes Yes Yes -Correct Side, Site, Position Yes Yes Yes -Correct Procedure Yes Yes Yes -Procedure Performed Yes Yes Yes -Type of Procedure Debridement Debridement Debridement -Clinical Debridement Subcutaneous Subcutaneous Subcutaneous -Tissue Removed Subcutaneous Subcutaneous Subcutaneous -Post Debridement (cm) - Length 2.1 2.3 2.0 -Post Debridement (cm) - Width 2.5 2.1 2.0 -Post Debridement (cm) - Depth 0.2 0.3 0.2 -Total Square (Post) (cm) 5.25 4.83 4.00 -Area of Debridement (cm) - Length 2.1 2.3 2.0 -Area of Debridement (cm) - Width 2.5 2.1 2.0 -Total Square (Area) (cm) 5.25 4.83 4.00 -Tunneling No No No -Undermining/Tunneling No No No -Circular Undermining No No No -Wound/Ulcer Outcome Not Healed Not Healed Not Healed -Ulcer Cleansing Rinsed/ Rinsed/ Rinsed/ Irrigated with Irrigated with Irrigated with Saline Saline Saline -Foul Odor after Cleansing No No No -Bioengineered Tissue Yes Yes Yes -Type of Bioengineered Tissue Epifix Mesh Epifix Mesh Epifix -Expiration Date 10/08/27 11/07/27 10/08/27 -Product Lot Number [id number] -Percent Used 100 100 100 -Bleeding Controlled with Pressure Pressure Pressure -Treatment Response Procedure Procedure Procedure Tolerated Well Tolerated Well Tolerated Well -Debridement - Subq, 1st 20sq cm No No No -Apply Skin Sub - 1st 25 sq cm - Legs 1 -Apply Skin Sub - 1st 25 sq cm - Feet 1 1 -Epifix (per sq cm) 4 -Epifix Mesh (per sq cm) 11 11 Pain Scale: 0-10 Numeric Is Patient Pain Free? Yes Yes Yes - Nurse 3 - General Ulcer D/C NN Start: 02/08/23 09:06 Freq: Status: Active Protocol: Activity Type Activity Date Activity User E-sign Co-sign Detail Recorded Client Recorded Date Recorded By Document 02/08/23 09:54 [id number] 02/08/23 09:55 Document 02/15/23 11:46 DL [id number] 02/15/23 11:48 DL 02/08/23 02/15/23 09:54 11:46 Wound Care Center Nurse 3 2-right 5th metatarsal foot -Ulcer Cleansing Rinsed/ Irrigated with Saline -Foul Odor after Cleansing No -Primary Dressing Covered/Secured with Dry Gauze & Roll Gauze, Secured with Tape #1 right plantar foot -Ulcer Cleansing Rinsed/ Not Cleansed Irrigated with Saline -Foul Odor after Cleansing No -Other Dressing EpiMesh -Primary Dressing Covered/Secured with Dry Gauze & Dry Gauze & Roll Gauze, Roll Gauze, Secured with Secured with Tape Tape -Other Covering ABD Treatment Response Procedure Tolerated Well Pain Scale: 0-10 Numeric Is Patient Pain Free? Yes Yes - Visit Discharge Discharge Condition Stable Stable Ambulatory Status Ambulatory Ambulatory Transportation Private Auto Private Auto Medication Reconcilliation completed & Yes provided to patient/care provider Clinical Summary of Care Provided Yes Facility Type Home Health Orders Sent Yes Assessment/Plan Assessment/Plan (1) Gastrocnemius equinus of right lower extremity: CODE(S): M21.861 - Other specified acquired deformities of right lower leg (2) Non-pressure chronic ulcer of other part of right foot with fat layer exposed: CODE(S): L97.512 - Non-pressure chronic ulcer of other part of right foot with fat layer exposed (3) Acquired hallux limitus of right foot: CODE(S): M20.5X1 - Other deformities of toe(s) (acquired), right foot (4) Hallux malleus of right foot: CODE(S): M20.31 - Hallux varus (acquired), right foot (5) Type 2 diabetes mellitus with foot ulcer: CODE(S): E11.621 - Type 2 diabetes mellitus with foot ulcer; L97.509 - Non-pressure chronic ulcer of other part of unspecified foot with unspecified severity (6) Diabetes mellitus with diabetic polyneuropathy: CODE(S): E11.42 - Type 2 diabetes mellitus with diabetic polyneuropathy (7) Diabetic foot ulcer associated with diabetes mellitus due to underlying condition: CODE(S): E08.621 - Diabetes mellitus due to underlying condition with foot ulcer; L97.509 - Non-pressure chronic ulcer of other part of unspecified foot with unspecified severity QUALIFIERS: Diabetic foot ulcer location: toe Laterality: right Non-pressure ulcer stage: with fat layer exposed Qualified Code(s): E08.621 - Diabetes mellitus due to underlying condition with foot ulcer; L97.512 - Non-pressure chronic ulcer of other part of right foot with fat layer exposed (8) Hypertension: CODE(S): I10 - Essential (primary) hypertension (9) Hyperlipidemia: CODE(S): E78.5 - Hyperlipidemia, unspecified (10) Morbid obesity with BMI of 40.0-44.9, adult: CODE(S): E66.01 - Morbid (severe) obesity due to excess calories; Z68.41 - Body mass index [BMI] 40.0-44.9, adult PLAN: Plan Patient seen and evaluated. Patient was ambulating CAM boot with plantar offloading padding today I have reviewed the LEAS performed 01/17/2023 demonstrating: Left foot triphasic DP and PT on Doppler; Indices left foot PT- 1.05. DP 1.03, Digit 0.91; right foot triphasic DP and PT on Doppler; Indices foot PT 1.10, DP 1.16, digit noncompressible. PVR diminished at ankle and digit on left with noncompressible digit right foot. Impression no evidence of significant occlusive arterial disease. Reviewed diagnostic data from 01/17/2023 demonstrating WBC of 8.7 Radiographic imaging obtained 01/17/2023 demonstrating no evidence of osteomyelitis. I have reviewed this imaging and concur with the radiographic read. I have reviewed her culture results which were obtained 01/17/2023 demonstrating: Providencia rettgeri, Staph aureus, Stap agalactaie, and Kocuria kristinae. She was prescribed Augmentin [address] Omar MD. Patient however states she never realized prescription was phoned in for her to hot die picker and had not been taking the antibiotic. She did hot die picker antibiotic and has completed antibiotic course. Ulceration underwent debridement as noted in the clinical panel above. Ulcerative site demonstrates healthy granular base with surrounding hyperkeratosis and maceration. No signs of infection. Ulceration measures 1.9 cm x 2.1 cm x 0.1 cm. EpiFix #4 applied to ulcerative base and dressed with Adaptic touch, anchored with Steri-Strips. Absorbant dressing applied followed by Dry sterile dressing applied. She was instructed to change outer dressings as needed due to significant drainage. She was instructed to not get the site wet. Following debridement cultures were obtained due to her continued significant drainage. She was empirically started on oral doxycycline 100 mg p.o. twice daily x14 days and oral ciprofloxacin 500 mg p.o. twice daily x14 days. Awaiting culture results. Ulcerative site demonstrates no reduction in size versus previous visit. She was instructed to stay off feet as much as possible to continue to aid in pressure reduction to the ulcerative site. Ulceration demonstrates no change in size with current offloading versus previous visit. Change of offloading padding was performed today due to significant drainage and wearing down of offloading padding. Reminded her she is to only ambulate in the CAM boot for offloading. I suspect barefoot ambulation or sandals are still being worn outside of visits. She was instructed to continue offloading in CAM boot for the right lower extremity with plantar offloading padding for first metatarsal head. She was instructed to weight-bear in the CAM boot at all times and not to wear flip-flops. She may remove the boot for shower purposes and sleeping. She voices understanding of this. Discussed that pressure reduction to the site is essential for her healing status. Discussed proper diabetic diet to maintain tight glycemic control. Last A1c 09/2022 was 7.0%. Discussed continued diet and exercise along with lifestyle modification/weight loss to aid in healthy lifestyle. Discussed importance of daily foot checks. Discussed adequate protein intake to aid in wound healing. She may take Jeremy supplementation to aid in wound healing. Discussed being diabetic she is never to go barefoot and should wear closed toed shoes at all times. Discussed with her socks is considered barefoot. Encouraged shoe gear to be worn at all times. She voices understanding of this today. Recommend diabetic shoes with plantar offloading padding once ulceration has healed. Discussed signs and symptoms of infection. Discussed if she notices redness about the ulcerative site that moves to the top of the foot and up the foot, purulent drainage from the wound site, increasing foul odor, or if she experiences fever greater than 101 degree, nausea, vomiting, chills that these are signs of a progressing infection and she should report to the ED for IV antibiotics. She voices understanding of this today. The following work up and care recommendations were made: Dressing: EpiFix, Adaptic touch, Steri-Strips, dry sterile dressing. Change outer dressings as needed. Wash: Do not get wet Tissue growth optimization: EpiFix Offload: CAM boot with plantar offloading padding Vascular: Palpable pedal pulses bilateral. LEAS obtained and reviewed from 01/17/2023 demonstrating no significant arterial occlusive disease. She is noted to have mild arterial disease of the popliteal/SFA bilateral. On Doppler DP and PT are triphasic bilateral. Edema: No edema noted Infection: No signs of infection Pain: May take [id number] Tylenol for discomfort Host factors: DM type II with peripheral polyneuropathy, hallux limitus right foot, hallux malleus right foot, morbid obesity, equinus deformity all complicated healing potential I answered all the patient's questions. To return to the wound healing center in 1 week or call sooner if the patient has any questions or concerns.
[2023-03-08 09:42] VITALS: BP 162/61; PULSE 76; RESP 18; TEMP 36.2; BMI 41.8
--- NOTE | 2023-03-08 09:54 | PCM.WC.PN ---
History of Present Illness Date of Service: 03/08/23 Chief Complaint: Diabetic foot ulceration, right metatarsal-phalangeal joint, plantar surface History of Wound: This is a 58-year-old, morbidly-obese, diabetic female who presents with a large ulceration on the right great toe. The ulceration is located at the right first metatarsophalangeal joint, on the plantar surface. It has been present for approximately 4 months. According to the patient, it originated as a callus, and she ripped off the skin. She has been using Watkin's salve topically. The patient does not see a pretzel twister on a regular basis. Her BMI is 41.8. She denies a history of smoking. She also denies a history of myocardial infarction, congestive heart failure, cerebrovascular accident, pulmonary disease, renal disease, and thyroid disease. Most recent hemoglobin A1c was 7.0 in September,. Laboratory studies obtained recently, dated January 03, 2023, are as follows: White blood count 8.7, hemoglobin 13.5, hematocrit 41.4, platelets 308,000, sodium 138, potassium 4.0, chloride 101, BUN 14, creatinine 0.65, glucose 140, calcium 9.3, bilirubin 0.40, AST 19, ALT 24, alkaline phosphatase 107, protein 7.8, albumin 3.3. Subjective Subjective This is a 58-year-old diabetic female who presents to the wound care center today for follow-up of a plantar first metatarsal head ulceration of the right foot. Graft in place the wound site. She is changing outer dressings daily. She has continued to offload in the CAM boot with plantar offloading padding. She states she has now noticed less drainage from the wound site. She denies any constitutional symptoms. She denies further complaints. Objective Data Objective Data Vital Signs: Vital Signs Temp Pulse Resp BP 97.5 F L 72 20 H 161/84 H 03/01/23 09:32 03/01/23 09:32 03/01/23 09:32 03/01/23 09:32 Weight: 110.677 kg Body Mass Index (BMI) 41.8 Lab / Micro Data Micro: Microbiology 03/01/23 Unknown Wound - Right Foot Gram Stain - Final 03/01/23 Unknown Wound - Right Foot Wound Culture - Final Pseudomonas aeruginosa Providencia rettgeri Corynebacterium jeikeium Staphylococcus cohnii urealyti 03/01/23 Unknown Wound - Right Foot Anaerobic Culture - Final Anaerobic cocci Physical Exam Const alert, oriented x3, no apparent distress and well nourished General Appearance: cooperative HEENT normocephalic Eyes General Eye: normal appearance of both eyes Neck General: normal visual inspection Lymph Lymphatic: no lymphadenopathy noted and no lymphedema noted Resp normal respiratory effort Cardio regular rate and regular rhythm Extremity normal capillary refill, no joint enlargement, no calf tenderness and no pedal edema Extremity Narrative: DP and PT pulses palpable bilateral. Capillary fill time to the digits less than 5 seconds bilateral. Hair growth diminished to the digits bilateral. Dermatological: Skin appears well-hydrated with normal turgor. Hyperkeratotic tissue Sub first metatarsal head of the left foot with no evidence of open wound. There is a large ulceration noted to the plantar aspect of the first metatarsal head of the right foot with surrounding hyperkeratotic tissue and maceration. Wound bed demonstrates granular tissue. No purulent drainage, no malodor, no palpable fluctuance/bogginess, no visible abscess formation, no lymphangitic streaking. Ulceration does not probe to bone. Musculoskeletal: Muscle strength 5 of 5 age-appropriate. She does demonstrate decreased range of motion of the first metatarsophalangeal joint bilateral without pain or crepitus. Decreased range of motion of the ankle joint in dorsiflexion with the knee extended without pain or crepitus bilateral. Hammertoe deformity of the right hallux. No pain to palpation about the ulcerative site plantar first metatarsal head right foot. Skin no rashes or lesions noted, skin turgor normal and no jaundice Neuro moves all extremities Neuro Narrative: Diminished protective sensation bilateral secondary to diabetic peripheral polyneuropathy Debridement Note Debridement Note Wound debrided: Sub first metatarsal head Laterality: Right Wound Grade/Stage: Nichols stage I Type of Debridement: Excisional debridement Anesthesia Used: 5% Lidocaine Gel Depth: Down to and including healthy tissue and in the subcutaneous layer Percentage of wound debrided: 100 Instrument Used: 5mm curette Tissue Removed: Fibrous, devitalized subcutaneous, biofilm, slough Severity: Fat Layer Exposed Amount of bleeding with debridement: Mild Bleeding Controlled with: Compression and gauze Patient tolerated procedure: Patient tolerated procedure well Post-Debridement Measurements and Additional Note: Post-Debridement Measurements/Treatment WC - Nurse 1 - General Ulcer Assessment Start: 02/08/23 09:06 Freq: Status: Active Protocol: WC.LOWEXBelle Activity Type Activity Date Activity User E-sign Co-sign Detail Recorded Client Recorded Date Recorded By Document 02/08/23 09:08 [id number] 02/08/23 09:17 JF Document 02/15/23 09:19 PL [id number] 02/15/23 09:24 PL Document 02/22/23 09:18 DL [id number] 02/22/23 09:26 DL Document 03/01/23 09:32 DL [id number] 03/01/23 09:35 DL 02/08/23 02/15/23 02/22/23 09:08 09:19 09:18 WC - Today's Visit Information Type of service Follow-up Visit Follow-up Visit Follow-up Visit (Physician/POST OFFICE MARKUP CLERK (Physician/POST OFFICE MARKUP CLERK (Physician/POST OFFICE MARKUP CLERK ) ) ) Arrival Mode Ambulatory Ambulatory Ambulatory Transfer Assistance None None Patient Identification Verified (Name & Yes Yes Yes ) Patient Requires Transmission-Based No No No Precautions Safety Precautions NA Height and Weight Body Mass Index (BMI) 41.8 41.8 41.8 BMI Classification Obese Obese Obese Vital Signs Temperature (97.8 F-99.1 F) 96.7 F L 98.5 F 97.7 F L Temperature Source Temporal Temporal Temporal Pulse Rate (60-100) 99 82 Pulse Location Monitor Respiratory Rate (12-18) 18 20 H 22 H Respiratory rate source Observation Observation Blood Pressure (90/60-120/80) 180/99 H 173/75 H Blood Pressure Mean (mm Hg) 126 107 Source Monitor History Since Last Visit- (Skip if this is Patient's initial visit) Have you changed medications since your No No last visit? Any new allergies or adverse reactions No No Had a fall/change in ADL's that may No No increase risk of falls Signs or symptoms of abuse and/or No No neglect since last visit Have you been in the hospital since your No No last visit? Has dressing in place as prescribed Yes Yes Has compression in place as prescribed N/A N/A Has offloadiing in place as prescribed Yes Yes Experienced any changes in pain level or No No management Left Footwear Removable Cast Walker/Walking Boot Pain Scale: 0-10 Numeric Is Patient Pain Free? Yes Yes Yes 03/01/23 09:32 - Today's Visit Information Type of service Follow-up Visit (Physician/POST OFFICE MARKUP CLERK ) Arrival Mode Ambulatory Transfer Assistance None Patient Identification Verified (Name & Yes ) Patient Requires Transmission-Based No Precautions Safety Precautions Height and Weight Body Mass Index (BMI) 41.8 BMI Classification Obese Vital Signs Temperature (97.8 F-99.1 F) 97.5 F L Temperature Source Temporal Pulse Rate (60-100) 72 Pulse Location Monitor Respiratory Rate (12-18) 20 H Respiratory rate source Observation Blood Pressure (90/60-120/80) 161/84 H Blood Pressure Mean (mm Hg) 109 Source Monitor History Since Last Visit- (Skip if this is Patient's initial visit) Have you changed medications since your No last visit? Any new allergies or adverse reactions No Had a fall/change in ADL's that may No increase risk of falls Signs or symptoms of abuse and/or No neglect since last visit Have you been in the hospital since your No last visit? Has dressing in place as prescribed Yes Has compression in place as prescribed N/A Has offloadiing in place as prescribed Yes Experienced any changes in pain level or No management Left Footwear Pain Scale: 0-10 Numeric Is Patient Pain Free? Yes - Nurse 1 - General Ulcer Measurement Start: 02/08/23 09:06 Freq: Status: Active Protocol: Activity Type Activity Date Activity User E-sign Co-sign Detail Recorded Client Recorded Date Recorded By Document 02/08/23 09:08 [id number] 02/08/23 09:17 Document 02/22/23 09:18 DL [id number] 02/22/23 09:26 DL Document 03/01/23 09:32 DL [id number] 03/01/23 09:35 DL 02/08/23 02/22/23 03/01/23 09:08 09:18 09:32 Wound Center Nurse 1 2-right 5th metatarsal foot -Combined with other wound No -Current Size (cm) - Length 0.4 -Current Size (cm) - Width 0.6 -Current Size (cm) - Depth 0.2 -Total Square Cm 0.24 -Photo Taken Yes -Epithelialization Small 1-33% -Tunneling No -Undermining/Tunneling No -Circular Undermining No -Exudate Amt Small -Exudate Type Serosanguineous -Wound Margin Flat & Intact -Granulation Amt Large (67-100%) -Granulation Quality Red -Slough/Fibrin Yes -Necrosis Amt Small (1-33%) -Necrotic Tissue Type Adherent Slough -Structure Exposed N/A -Texture (Kelsie-wound Skin Appearance) Assessed, Excoriation -Moisture (Kelsie-wound Skin Appearance) Assessed,Dry/ Scaly -Color (Kelsie-wound Skin Appearance) Assessed -Temperature (Kelsie-wound Skin No Abnormality Appearance) (Pt Warm) -Tenderness on Palpation (Kelsie-wound No Skin Appearance) -Foul Odor after Cleansing No -Anesthetic Used 5% Lidocaine Gel #1 right plantar foot -Combined with other wound No -Current Size (cm) - Length 2.1 1.9 2 -Current Size (cm) - Width 2.4 2.1 2 -Current Size (cm) - Depth 0.2 0.5 0.2 -Total Square Cm 5.04 3.99 4 -Photo Taken Yes -Epithelialization Small 1-33% -Tunneling No -Undermining/Tunneling No -Circular Undermining No -Exudate Amt Medium Large Medium -Exudate Type Serosanguineous Serosanguineous Serosanguineous -Wound Margin Flat & Intact Thickened Thickened -Granulation Amt Large (67-100%) Large (67-100%) Large (67-100%) -Granulation Quality Red Red Red -Slough/Fibrin Yes -Necrosis Amt Small (1-33%) Small (1-33%) Small (1-33%) -Necrotic Tissue Type Adherent Slough Adherent Slough Adherent Slough -Structure Exposed N/A N/A N/A -Texture (Kelsie-wound Skin Appearance) Assessed,Callus Callus, Callus,Scarring Localized Edema ,Rash -Moisture (Kelsie-wound Skin Appearance) Assessed,Dry/ Maceration Maceration Scaly -Color (Kelsie-wound Skin Appearance) Assessed No Abnormality No Abnormality -Temperature (Kelsie-wound Skin No Abnormality No Abnormality No Abnormality Appearance) (Pt Warm) (Pt Warm) (Pt Warm) -Tenderness on Palpation (Kelsie-wound No No No Skin Appearance) -Ulcer Cleansing Rinsed/ Soap and Water Soap and Water Irrigated with Saline -Foul Odor after Cleansing No No No -Anesthetic Used 5% Lidocaine 5% Lidocaine 5% Lidocaine Gel Gel Gel Lower Limb Edema Present NA WC - Nurse 2 - General Ulcer CM Notes Start: 02/08/23 09:06 Freq: Status: Active Protocol: Activity Type Activity Date Activity User E-sign Co-sign Detail Recorded Client Recorded Date Recorded By Document 02/08/23 14:17 PL [id number] 02/08/23 14:21 PL Document 02/15/23 12:20 PL [id number] 02/15/23 12:21 PL Document 02/22/23 12:49 PL [id number] 02/22/23 12:50 PL Document 03/01/23 12:36 PL [id number] 03/01/23 12:39 PL 02/08/23 02/15/23 02/22/23 14:17 12:20 12:49 Wound Center Nurse 2 2-right 5th metatarsal foot -Time 09:34 -Correct Patient Yes -Correct Side, Site, Position Yes -Correct Procedure Yes -Procedure Performed Yes -Type of Procedure Debridement -Clinical Debridement Subcutaneous -Tissue Removed Subcutaneous -Post Debridement (cm) - Length 0.5 -Post Debridement (cm) - Width 0.5 -Post Debridement (cm) - Depth 0.1 -Total Square (Post) (cm) 0.25 -Area of Debridement (cm) - Length 0.5 -Area of Debridement (cm) - Width 0.5 -Total Square (Area) (cm) 0.25 -Tunneling No -Undermining/Tunneling No -Circular Undermining No -Wound/Ulcer Outcome Not Healed -Ulcer Cleansing Rinsed/ Irrigated with Saline -Foul Odor after Cleansing No -Bioengineered Tissue No -Bleeding Controlled with Pressure -Treatment Response Procedure Tolerated Well -Debridement - Subq, 1st 20sq cm Yes #1 right plantar foot -Time 09:34 09:43 09:47 -Correct Patient Yes Yes Yes -Correct Side, Site, Position Yes Yes Yes -Correct Procedure Yes Yes Yes -Procedure Performed Yes Yes Yes -Type of Procedure Debridement Debridement Debridement -Clinical Debridement Subcutaneous Subcutaneous Subcutaneous -Tissue Removed Subcutaneous Subcutaneous Subcutaneous -Post Debridement (cm) - Length 2.1 2.3 2.0 -Post Debridement (cm) - Width 2.5 2.1 2.0 -Post Debridement (cm) - Depth 0.2 0.3 0.2 -Total Square (Post) (cm) 5.25 4.83 4.00 -Area of Debridement (cm) - Length 2.1 2.3 2.0 -Area of Debridement (cm) - Width 2.5 2.1 2.0 -Total Square (Area) (cm) 5.25 4.83 4.00 -Tunneling No No No -Undermining/Tunneling No No No -Circular Undermining No No No -Wound/Ulcer Outcome Not Healed Not Healed Not Healed -Ulcer Cleansing Rinsed/ Rinsed/ Rinsed/ Irrigated with Irrigated with Irrigated with Saline Saline Saline -Foul Odor after Cleansing No No No -Bioengineered Tissue Yes Yes Yes -Type of Bioengineered Tissue Epifix Mesh Epifix Mesh Epifix -Expiration Date 10/08/27 11/07/27 10/08/27 -Product Lot Number [id number] -Percent Used 100 100 100 -Bleeding Controlled with Pressure Pressure Pressure -Treatment Response Procedure Procedure Procedure Tolerated Well Tolerated Well Tolerated Well -Debridement - Subq, 1st 20sq cm No No No -Apply Skin Sub - 1st 25 sq cm - Legs 1 -Apply Skin Sub - 1st 25 sq cm - Feet 1 1 -Epifix (per sq cm) 4 -Epifix Mesh (per sq cm) 11 11 Pain Scale: 0-10 Numeric Is Patient Pain Free? Yes Yes Yes 03/01/23 12:36 Wound Center Nurse 2 2-right 5th metatarsal foot -Time -Correct Patient -Correct Side, Site, Position -Correct Procedure -Procedure Performed -Type of Procedure -Clinical Debridement -Tissue Removed -Post Debridement (cm) - Length -Post Debridement (cm) - Width -Post Debridement (cm) - Depth -Total Square (Post) (cm) -Area of Debridement (cm) - Length -Area of Debridement (cm) - Width -Total Square (Area) (cm) -Tunneling -Undermining/Tunneling -Circular Undermining -Wound/Ulcer Outcome -Ulcer Cleansing -Foul Odor after Cleansing -Bioengineered Tissue -Bleeding Controlled with -Treatment Response -Debridement - Subq, 1st 20sq cm #1 right plantar foot -Time 10:10 -Correct Patient Yes -Correct Side, Site, Position Yes -Correct Procedure Yes -Procedure Performed Yes -Type of Procedure Debridement -Clinical Debridement Subcutaneous -Tissue Removed Subcutaneous -Post Debridement (cm) - Length 1.9 -Post Debridement (cm) - Width 2.1 -Post Debridement (cm) - Depth 0.2 -Total Square (Post) (cm) 3.99 -Area of Debridement (cm) - Length 1.9 -Area of Debridement (cm) - Width 2.1 -Total Square (Area) (cm) 3.99 -Tunneling No -Undermining/Tunneling No -Circular Undermining No -Wound/Ulcer Outcome Not Healed -Ulcer Cleansing Rinsed/ Irrigated with Saline -Foul Odor after Cleansing No -Bioengineered Tissue Yes -Type of Bioengineered Tissue Epifix -Expiration Date 11/07/27 -Product Lot Number [id number] -Percent Used 100 -Bleeding Controlled with Pressure -Treatment Response Procedure Tolerated Well -Debridement - Subq, 1st 20sq cm No -Apply Skin Sub - 1st 25 sq cm - Legs -Apply Skin Sub - 1st 25 sq cm - Feet 1 -Epifix (per sq cm) 4 -Epifix Mesh (per sq cm) Pain Scale: 0-10 Numeric Is Patient Pain Free? Yes WC - Nurse 3 - General Ulcer D/C NN Start: 02/08/23 09:06 Freq: Status: Active Protocol: Activity Type Activity Date Activity User E-sign Co-sign Detail Recorded Client Recorded Date Recorded By Document 02/08/23 09:54 BRYANT [id number] 02/08/23 09:55 Document 02/15/23 11:46 DL [id number] 02/15/23 11:48 DL Document 03/01/23 10:46 DL [id number] 03/01/23 10:46 DL 02/08/23 02/15/23 03/01/23 09:54 11:46 10:46 Wound Care Center Nurse 3 2-right 5th metatarsal foot -Ulcer Cleansing Rinsed/ Irrigated with Saline -Foul Odor after Cleansing No -Primary Dressing Covered/Secured with Dry Gauze & Roll Gauze, Secured with Tape #1 right plantar foot -Ulcer Cleansing Rinsed/ Not Cleansed Irrigated with Saline -Foul Odor after Cleansing No No -Primary Dressing Applied Aquacel Extra, Optilok 6.5x10 -Other Dressing EpiMesh Epifix -Primary Dressing Covered/Secured with Dry Gauze & Dry Gauze & Dry Gauze & Roll Gauze, Roll Gauze, Roll Gauze, Secured with Secured with Secured with Tape Tape Tape -Other Covering ABD -Aquacel Extra 1 -Optilok 6.5x10 1 Treatment Response Procedure Procedure Tolerated Well Tolerated Well Pain Scale: 0-10 Numeric Is Patient Pain Free? Yes Yes Yes WC - Visit Discharge Discharge Condition Stable Stable Stable Ambulatory Status Ambulatory Ambulatory Ambulatory Transportation Private Auto Private Auto Private Auto Medication Reconcilliation completed & Yes provided to patient/care provider Clinical Summary of Care Provided Yes Facility Type Home Health Orders Sent Yes Assessment/Plan Assessment/Plan (1) Gastrocnemius equinus of right lower extremity: CODE(S): M21.861 - Other specified acquired deformities of right lower leg (2) Non-pressure chronic ulcer of other part of right foot with fat layer exposed: CODE(S): L97.512 - Non-pressure chronic ulcer of other part of right foot with fat layer exposed (3) Acquired hallux limitus of right foot: CODE(S): M20.5X1 - Other deformities of toe(s) (acquired), right foot (4) Hallux malleus of right foot: CODE(S): M20.31 - Hallux varus (acquired), right foot (5) Type 2 diabetes mellitus with foot ulcer: CODE(S): E11.621 - Type 2 diabetes mellitus with foot ulcer; L97.509 - Non-pressure chronic ulcer of other part of unspecified foot with unspecified severity (6) Diabetes mellitus with diabetic polyneuropathy: CODE(S): E11.42 - Type 2 diabetes mellitus with diabetic polyneuropathy (7) Diabetic foot ulcer associated with diabetes mellitus due to underlying condition: CODE(S): E08.621 - Diabetes mellitus due to underlying condition with foot ulcer; L97.509 - Non-pressure chronic ulcer of other part of unspecified foot with unspecified severity QUALIFIERS: Diabetic foot ulcer location: toe Laterality: right Non-pressure ulcer stage: with fat layer exposed Qualified Code(s): E08.621 - Diabetes mellitus due to underlying condition with foot ulcer; L97.512 - Non-pressure chronic ulcer of other part of right foot with fat layer exposed (8) Hypertension: CODE(S): I10 - Essential (primary) hypertension (9) Hyperlipidemia: CODE(S): E78.5 - Hyperlipidemia, unspecified (10) Morbid obesity with BMI of 40.0-44.9, adult: CODE(S): E66.01 - Morbid (severe) obesity due to excess calories; Z68.41 - Body mass index [BMI] 40.0-44.9, adult PLAN: Plan Patient seen and evaluated. Patient was ambulating CAM boot with plantar offloading padding today I have reviewed the LEAS performed 01/17/2023 demonstrating: Left foot triphasic DP and PT on Doppler; Indices left foot PT- 1.05. DP 1.03, Digit 0.91; right foot triphasic DP and PT on Doppler; Indices foot PT 1.10, DP 1.16, digit noncompressible. PVR diminished at ankle and digit on left with noncompressible digit right foot. Impression no evidence of significant occlusive arterial disease. Reviewed diagnostic data from 01/17/2023 demonstrating WBC of 8.7 Radiographic imaging obtained 01/17/2023 demonstrating no evidence of osteomyelitis. I have reviewed this imaging and concur with the radiographic read. I have reviewed her culture results which were obtained 01/17/2023 demonstrating: Providencia rettgeri, Staph aureus, Stap agalactaie, and Kocuria kristinae. She was prescribed Augmentin [address] Omar MD. Patient however states she never realized prescription was phoned in for her to lease picker and had not been taking the antibiotic. She did lease picker antibiotic and has completed antibiotic course. Ulceration underwent debridement as noted in the clinical panel above. Ulcerative site demonstrates healthy granular base with surrounding hyperkeratosis and maceration. No signs of infection. Ulceration measures 1.8 cm x 1.7 cm x 0.1 cm. EpiFix #5 applied to ulcerative base and dressed with Adaptic touch, anchored with Steri-Strips. Absorbant dressing applied followed by Dry sterile dressing applied. She was instructed to change outer dressings as needed due to significant drainage. She was instructed to not get the site wet. Following debridement cultures were obtained 03/01/23 due to her continued significant drainage. She was empirically started on oral doxycycline 100 mg p.o. twice daily x14 days and oral ciprofloxacin 500 mg p.o. twice daily x14 days. She states that she did not lease picker antibiotic due to mistake with filling at [facility]. Antibiotic called into [facility] for pickup. Culture results demonstrate PsA, Providencia rettgeri, corynebacterium jeikeium, Staphylococcus cohnii urealyti, and anaerobic cocci. Ulcerative site demonstrates reduction in size versus previous visit with less drainage. She was instructed to stay off feet as much as possible to continue to aid in pressure reduction to the ulcerative site. Ulceration demonstrates reduction in size with current offloading versus previous visit. Reminded her she is to only ambulate in the CAM boot for offloading. She was instructed to continue offloading in CAM boot for the right lower extremity with plantar offloading padding for first metatarsal head. She was instructed to weight-bear in the CAM boot at all times and not to wear flip-flops. She may remove the boot for shower purposes and sleeping. She voices understanding of this. Discussed that pressure reduction to the site is essential for her healing status. Discussed proper diabetic diet to maintain tight glycemic control. Last A1c 09/2022 was 7.0%. Discussed continued diet and exercise along with lifestyle modification/weight loss to aid in healthy lifestyle. Discussed importance of daily foot checks. Discussed adequate protein intake to aid in wound healing. She may take Jeremy supplementation to aid in wound healing. Discussed being diabetic she is never to go barefoot and should wear closed toed shoes at all times. Discussed with her socks is considered barefoot. Encouraged shoe gear to be worn at all times. She voices understanding of this today. Recommend diabetic shoes with plantar offloading padding once ulceration has healed. Discussed signs and symptoms of infection. Discussed if she notices redness about the ulcerative site that moves to the top of the foot and up the foot, purulent drainage from the wound site, increasing foul odor, or if she experiences fever greater than 101 degree, nausea, vomiting, chills that these are signs of a progressing infection and she should report to the ED for IV antibiotics. She voices understanding of this today. The following work up and care recommendations were made: Dressing: EpiFix, Adaptic touch, Steri-Strips, dry sterile dressing. Change outer dressings as needed. Wash: Do not get wet Tissue growth optimization: EpiFix Offload: CAM boot with plantar offloading padding Vascular: Palpable pedal pulses bilateral. LEAS obtained and reviewed from 01/17/2023 demonstrating no significant arterial occlusive disease. She is noted to have mild arterial disease of the popliteal/SFA bilateral. On Doppler DP and PT are triphasic bilateral. Edema: No edema noted Infection: No signs of infection Pain: May take [id number] Tylenol for discomfort Host factors: DM type II with peripheral polyneuropathy, hallux limitus right foot, hallux malleus right foot, morbid obesity, equinus deformity all complicated healing potential I answered all the patient's questions. To return to the wound healing center in 1 week or call sooner if the patient has any questions or concerns.
== END 2023-03-08 23:59 | disposition home or self-care (01) ==
LOC: WC 09:45
PROVIDERS: PCP Nurse Practitioner Family; Referring Provider Family Medicine; Visit Provider Student in an Organized Health Care Education/Training Program
DX: E11.621 Type 2 diabetes mellitus with foot ulcer (principal); L97.512 Non-pressure chronic ulcer of other part of right foot with fat layer exposed; E11.42 Type 2 diabetes mellitus with diabetic polyneuropathy; E66.01 Morbid (severe) obesity due to excess calories; Z68.41 Body mass index [BMI] 40.0-44.9, adult; E78.5 Hyperlipidemia, unspecified; I10 Essential (primary) hypertension; M21.861 Other specified acquired deformities of right lower leg; M20.5X1 Other deformities of toe(s) (acquired), right foot; M20.31 Hallux varus (acquired), right foot; B95.61 Methicillin susceptible Staphylococcus aureus infection as the cause of diseases classified elsewhere; B95.7 Other staphylococcus as the cause of diseases classified elsewhere; Z79.84 Long term (current) use of oral hypoglycemic drugs; Z79.899 Other long term (current) drug therapy
CPT/HCPCS: 11042; 15271; 15275; 87070; 87075; 87077; 87186; 87205; Q4186

== ENCOUNTER 2023-04-05 09:45 | Outpatient (RCR) | payer OTHER, SELFPAY ==
[2023-03-09 00:33] VITALS: BP 162/61; PULSE 76; RESP 18; TEMP 36.2; BMI 41.8
[2023-03-15 09:45] VITALS: BP 157/78; PULSE 74; RESP 20; TEMP 36.1; BMI 41.8
--- NOTE | 2023-03-15 09:48 | PCM.WC.PN ---
History of Present Illness Date of Service: 03/15/23 Chief Complaint: Diabetic foot ulceration, right metatarsal-phalangeal joint, plantar surface History of Wound: This is a 58-year-old, morbidly-obese, diabetic female who presents with a large ulceration on the right great toe. The ulceration is located at the right first metatarsophalangeal joint, on the plantar surface. It has been present for approximately 4 months. According to the patient, it originated as a callus, and she ripped off the skin. She has been using Watkin's salve topically. The patient does not see a quality control associate on a regular basis. Her BMI is 41.8. She denies a history of smoking. She also denies a history of myocardial infarction, congestive heart failure, cerebrovascular accident, pulmonary disease, renal disease, and thyroid disease. Most recent hemoglobin A1c was 7.0 in September,. Laboratory studies obtained recently, dated January 03, 2023, are as follows: White blood count 8.7, hemoglobin 13.5, hematocrit 41.4, platelets 308,000, sodium 138, potassium 4.0, chloride 101, BUN 14, creatinine 0.65, glucose 140, calcium 9.3, bilirubin 0.40, AST 19, ALT 24, alkaline phosphatase 107, protein 7.8, albumin 3.3. Subjective Subjective This is a 58-year-old diabetic female who presents to the wound care center today for follow-up of a plantar first metatarsal head ulceration of the right foot. Graft in place the wound site. She is changing outer dressings daily. She has continued to offload in the CAM boot with plantar offloading padding. States she did strip picker antibiotic and is continuing to take this. She denies any constitutional symptoms. She denies further complaints. Objective Data Objective Data Vital Signs: Vital Signs Temp Pulse Resp BP 97.2 F L 76 18 162/61 H 03/09/23 00:33 03/09/23 00:33 03/09/23 00:33 03/09/23 00:33 Weight: 110.677 kg Body Mass Index (BMI) 41.8 Physical Exam Const alert, oriented x3, no apparent distress and well nourished General Appearance: cooperative HEENT normocephalic Eyes General Eye: normal appearance of both eyes Neck General: normal visual inspection Lymph Lymphatic: no lymphadenopathy noted and no lymphedema noted Resp normal respiratory effort Cardio regular rate and regular rhythm Extremity normal capillary refill, no joint enlargement, no calf tenderness and no pedal edema Extremity Narrative: DP and PT pulses palpable bilateral. Capillary fill time to the digits less than 5 seconds bilateral. Hair growth diminished to the digits bilateral. Dermatological: Skin appears well-hydrated with normal turgor. Hyperkeratotic tissue Sub first metatarsal head of the left foot with no evidence of open wound. There is a large ulceration noted to the plantar aspect of the first metatarsal head of the right foot with surrounding hyperkeratotic tissue and maceration. Wound bed demonstrates granular tissue. No purulent drainage, no malodor, no palpable fluctuance/bogginess, no visible abscess formation, no lymphangitic streaking. Ulceration does not probe to bone. Musculoskeletal: Muscle strength 5 of 5 age-appropriate. She does demonstrate decreased range of motion of the first metatarsophalangeal joint bilateral without pain or crepitus. Decreased range of motion of the ankle joint in dorsiflexion with the knee extended without pain or crepitus bilateral. Hammertoe deformity of the right hallux. No pain to palpation about the ulcerative site plantar first metatarsal head right foot. Skin no rashes or lesions noted, skin turgor normal and no jaundice Neuro moves all extremities Neuro Narrative: Diminished protective sensation bilaterally secondary to diabetic peripheral polyneuropathy Debridement Note Debridement Note Wound debrided: Sub first metatarsal head Laterality: Right Wound Grade/Stage: Nichols stage I Type of Debridement: Excisional debridement Anesthesia Used: 5% Lidocaine Gel Depth: Down to and including healthy tissue and in the subcutaneous layer Percentage of wound debrided: 100 Instrument Used: 5mm curette Tissue Removed: Fibrous, devitalized subcutaneous, biofilm, slough Severity: Fat Layer Exposed Amount of bleeding with debridement: Mild Bleeding Controlled with: Compression and gauze Patient tolerated procedure: Patient tolerated procedure well Assessment/Plan Assessment/Plan (1) Gastrocnemius equinus of right lower extremity: CODE(S): M21.861 - Other specified acquired deformities of right lower leg (2) Non-pressure chronic ulcer of other part of right foot with fat layer exposed: CODE(S): L97.512 - Non-pressure chronic ulcer of other part of right foot with fat layer exposed (3) Acquired hallux limitus of right foot: CODE(S): M20.5X1 - Other deformities of toe(s) (acquired), right foot (4) Hallux malleus of right foot: CODE(S): M20.31 - Hallux varus (acquired), right foot (5) Hypertension: CODE(S): I10 - Essential (primary) hypertension (6) Morbid obesity with BMI of 40.0-44.9, adult: CODE(S): E66.01 - Morbid (severe) obesity due to excess calories; Z68.41 - Body mass index [BMI] 40.0-44.9, adult (7) Hyperlipidemia: CODE(S): E78.5 - Hyperlipidemia, unspecified (8) Type 2 diabetes mellitus with foot ulcer: CODE(S): E11.621 - Type 2 diabetes mellitus with foot ulcer; L97.509 - Non-pressure chronic ulcer of other part of unspecified foot with unspecified severity (9) Diabetes mellitus with diabetic polyneuropathy: CODE(S): E11.42 - Type 2 diabetes mellitus with diabetic polyneuropathy PLAN: Plan Patient seen and evaluated. Patient was ambulating CAM boot with plantar offloading padding today I have reviewed the LEAS performed 01/17/2023 demonstrating: Left foot triphasic DP and PT on Doppler; Indices left foot PT- 1.05. DP 1.03, Digit 0.91; right foot triphasic DP and PT on Doppler; Indices foot PT 1.10, DP 1.16, digit noncompressible. PVR diminished at ankle and digit on left with noncompressible digit right foot. Impression no evidence of significant occlusive arterial disease. Reviewed diagnostic data from 01/17/2023 demonstrating WBC of 8.7 Radiographic imaging obtained 01/17/2023 demonstrating no evidence of osteomyelitis. I have reviewed this imaging and concur with the radiographic read. I have reviewed her culture results which were obtained 01/17/2023 demonstrating: Providencia rettgeri, Staph aureus, Stap agalactaie, and Kocuria kristinae. She was prescribed Augmentin [address] Omar MD. Patient however states she never realized prescription was phoned in for her to strip picker and had not been taking the antibiotic. She did strip picker antibiotic and has completed antibiotic course. Ulceration underwent debridement as noted in the clinical panel above. Ulcerative site demonstrates healthy granular base with surrounding hyperkeratosis and maceration. No signs of infection. Ulceration measures 1.8 cm x 1.6 cm x 0.1 cm. EpiFix #6 applied to ulcerative base and dressed with Adaptic touch, anchored with Steri-Strips. Absorbant dressing applied followed by Dry sterile dressing applied. She was instructed to change outer dressings as needed due to significant drainage. She was instructed to not get the site wet. Following debridement cultures were obtained 03/01/23 due to her continued significant drainage. She was empirically started on oral doxycycline 100 mg p.o. twice daily x14 days and oral ciprofloxacin 500 mg p.o. twice daily x14 days. She states that she has now picked up oral abx and started on 03/08/23. Culture results demonstrate PsA, Providencia rettgeri, corynebacterium jeikeium, Staphylococcus cohnii urealyti, and anaerobic cocci. Ulcerative site demonstrates slight reduction in size versus previous visit, there is some maceration still about ulcerative site. She was instructed to stay off feet as much as possible to continue to aid in pressure reduction to the ulcerative site. Ulceration demonstrates reduction in size with current offloading versus previous visit. Reminded her she is to only ambulate in the CAM boot for offloading. New offloading padding applied. She was instructed to continue offloading in CAM boot for the right lower extremity with plantar offloading padding for first metatarsal head. She was instructed to weight-bear in the CAM boot at all times and not to wear flip-flops. She may remove the boot for shower purposes and sleeping. She voices understanding of this. Discussed that pressure reduction to the site is essential for her healing status. Discussed proper diabetic diet to maintain tight glycemic control. Last A1c 09/2022 was 7.0%. Discussed continued diet and exercise along with lifestyle modification/weight loss to aid in healthy lifestyle. Discussed importance of daily foot checks. Discussed adequate protein intake to aid in wound healing. She may take Jeremy supplementation to aid in wound healing. Discussed being diabetic she is never to go barefoot and should wear closed toed shoes at all times. Discussed with her socks is considered barefoot. Encouraged shoe gear to be worn at all times. She voices understanding of this today. Recommend diabetic shoes with plantar offloading padding once ulceration has healed. Discussed signs and symptoms of infection. Discussed if she notices redness about the ulcerative site that moves to the top of the foot and up the foot, purulent drainage from the wound site, increasing foul odor, or if she experiences fever greater than 101 degree, nausea, vomiting, chills that these are signs of a progressing infection and she should report to the ED for IV antibiotics. She voices understanding of this today. The following work up and care recommendations were made: Dressing: EpiFix, Adaptic touch, Steri-Strips, dry sterile dressing. Change outer dressings as needed. Wash: Do not get wet Tissue growth optimization: EpiFix Offload: CAM boot with plantar offloading padding Vascular: Palpable pedal pulses bilateral. LEAS obtained and reviewed from 01/17/2023 demonstrating no significant arterial occlusive disease. She is noted to have mild arterial disease of the popliteal/SFA bilateral. On Doppler DP and PT are triphasic bilateral. Edema: No edema noted Infection: No signs of infection Pain: May take [id number] Tylenol for discomfort Host factors: DM type II with peripheral polyneuropathy, hallux limitus right foot, hallux malleus right foot, morbid obesity, equinus deformity all complicated healing potential I answered all the patient's questions. To return to the wound healing center in 1 week or call sooner if the patient has any questions or concerns.
[2023-03-22 09:42] VITALS: BP 146/67; PULSE 74; RESP 18; TEMP 35.9; BMI 41.8
--- NOTE | 2023-03-22 10:02 | PCM.WC.PN ---
History of Present Illness Date of Service: 03/22/23 Chief Complaint: Diabetic foot ulceration, right metatarsal-phalangeal joint, plantar surface History of Wound: This is a 58-year-old, morbidly-obese, diabetic female who presents with a large ulceration on the right great toe. The ulceration is located at the right first metatarsophalangeal joint, on the plantar surface. It has been present for approximately 4 months. According to the patient, it originated as a callus, and she ripped off the skin. She has been using Watkin's salve topically. The patient does not see a watermaster on a regular basis. Her BMI is 41.8. She denies a history of smoking. She also denies a history of myocardial infarction, congestive heart failure, cerebrovascular accident, pulmonary disease, renal disease, and thyroid disease. Most recent hemoglobin A1c was 7.0 in September,. Laboratory studies obtained recently, dated January 03, 2023, are as follows: White blood count 8.7, hemoglobin 13.5, hematocrit 41.4, platelets 308,000, sodium 138, potassium 4.0, chloride 101, BUN 14, creatinine 0.65, glucose 140, calcium 9.3, bilirubin 0.40, AST 19, ALT 24, alkaline phosphatase 107, protein 7.8, albumin 3.3. Subjective Subjective This is a 58-year-old diabetic female who presents to the wound care center today for follow-up of a plantar first metatarsal head ulceration of the right foot. Graft in place the wound site. She is changing outer dressings daily. She has continued to offload in the CAM boot with plantar offloading padding. He has completed course of antibiotics. She denies any constitutional symptoms. She denies further complaints. Objective Data Objective Data Vital Signs: Vital Signs Temp Pulse Resp BP O2 Del Method 96.6 F L 74 18 146/67 H Room Air 03/22/23 09:42 03/22/23 09:42 03/22/23 09:42 03/22/23 09:42 03/22/23 09:42 Oxygen Delivery Method Room Air Weight: 110.677 kg Body Mass Index (BMI) 41.8 Physical Exam Const alert, oriented x3, no apparent distress and well nourished General Appearance: cooperative HEENT normocephalic Eyes General Eye: normal appearance of both eyes Neck General: normal visual inspection Lymph Lymphatic: no lymphadenopathy noted and no lymphedema noted Resp normal respiratory effort Cardio regular rate and regular rhythm Extremity normal capillary refill, no joint enlargement, no calf tenderness and no pedal edema Extremity Narrative: DP and PT pulses palpable bilateral. Capillary fill time to the digits less than 5 seconds bilateral. Hair growth diminished to the digits bilateral. Dermatological: Skin appears well-hydrated with normal turgor. Hyperkeratotic tissue Sub first metatarsal head of the left foot with no evidence of open wound. There is a large ulceration noted to the plantar aspect of the first metatarsal head of the right foot with surrounding hyperkeratotic tissue and maceration. Wound bed demonstrates granular tissue. No purulent drainage, no malodor, no palpable fluctuance/bogginess, no visible abscess formation, no lymphangitic streaking. Ulceration does not probe to bone. Musculoskeletal: Muscle strength 5 of 5 age-appropriate. She does demonstrate decreased range of motion of the first metatarsophalangeal joint bilateral without pain or crepitus. Decreased range of motion of the ankle joint in dorsiflexion with the knee extended without pain or crepitus bilateral. Hammertoe deformity of the right hallux. No pain to palpation about the ulcerative site plantar first metatarsal head right foot. Skin no rashes or lesions noted, skin turgor normal and no jaundice Neuro moves all extremities Neuro Narrative: Diminished protective sensation bilaterally secondary to diabetic peripheral polyneuropathy Debridement Note Debridement Note Wound debrided: Sub first metatarsal head Laterality: Right Wound Grade/Stage: Nichols stage I Type of Debridement: Excisional debridement Anesthesia Used: 5% Lidocaine Gel Depth: Down to and including healthy tissue and in the subcutaneous layer Percentage of wound debrided: 100 Instrument Used: 5mm curette Tissue Removed: Fibrous, devitalized subcutaneous, biofilm, slough Severity: Fat Layer Exposed Amount of bleeding with debridement: Mild Bleeding Controlled with: Compression and gauze Patient tolerated procedure: Patient tolerated procedure well Post-Debridement Measurements and Additional Note: Post-Debridement Measurements/Treatment WC - Nurse 1 - General Ulcer Assessment Start: 03/15/23 09:45 Freq: Status: Active Protocol: RADHA.GUSTABO Activity Type Activity Date Activity User E-sign Co-sign Detail Recorded Client Recorded Date Recorded By Document 03/15/23 09:45 DL [id number] 03/15/23 09:54 DL Document 03/22/23 09:42 KW [id number] 03/22/23 09:54 KW 03/15/23 03/22/23 09:45 09:42 - Today's Visit Information Type of service Follow-up Visit Follow-up Visit (Physician/TELEPHONE CLERKS SUPERVISOR (Physician/TELEPHONE CLERKS SUPERVISOR ) ) Arrival Mode Ambulatory Ambulatory Transfer Assistance None Patient Identification Verified (Name & Yes Yes ) Patient Requires Transmission-Based No Precautions Height and Weight Body Mass Index (BMI) 41.8 41.8 BMI Classification Obese Obese Vital Signs Temperature (97.8 F-99.1 F) 96.9 F L 96.6 F L Temperature Source Temporal Temporal Pulse Rate (60-100) 74 74 Pulse Location Monitor Monitor Respiratory Rate (12-18) 20 H 18 Respiratory rate source Observation Observation Oxygen Delivery Method Room Air Blood Pressure (90/60-120/80) 157/78 H 146/67 H Blood Pressure Mean (mm Hg) 104 93 Source Monitor Monitor Position Sitting Blood Pressure Location Left Arm History Since Last Visit- (Skip if this is Patient's initial visit) Have you changed medications since your No No last visit? Any new allergies or adverse reactions No No Had a fall/change in ADL's that may No No increase risk of falls Signs or symptoms of abuse and/or No No neglect since last visit Have you been in the hospital since your No No last visit? Has dressing in place as prescribed Yes Yes Has compression in place as prescribed N/A Yes Has offloadiing in place as prescribed Yes Yes Experienced any changes in pain level or No No management Left Footwear Regular Shoe Right Footwear Removable Cast Removable Cast Walker/Walking Walker/Walking Boot Boot Pain Scale: 0-10 Numeric Is Patient Pain Free? Yes Yes - Nurse 1 - General Ulcer Measurement Start: 03/15/23 09:45 Freq: Status: Active Protocol: Activity Type Activity Date Activity User E-sign Co-sign Detail Recorded Client Recorded Date Recorded By Document 03/15/23 09:45 DL [id number] 03/15/23 09:54 DL Document 03/22/23 09:42 KW [id number] 03/22/23 09:54 KW 03/15/23 03/22/23 09:45 09:42 Wound Center Nurse 1 #1 right plantar foot -Current Size (cm) - Length 1.5 1.9 -Current Size (cm) - Width 1.8 1.7 -Current Size (cm) - Depth 0.4 0.2 -Total Square Cm 2.70 3.23 -Photo Taken Yes Yes -Tunneling No -Undermining/Tunneling Yes -Undermining/Tunneling Starts (O'clock 11 ) -Undermining/Tunneling Ends (O'clock) 1 -Maximum Distance (cm) 0.2 -Exudate Amt Large Medium -Exudate Type Serosanguineous Serosanguineous -Wound Margin Distinct, Distinct, Outline Outline Attached Attached -Granulation Amt Large (67-100%) Small (1-33%) -Granulation Quality [place] -Necrosis Amt Small (1-33%) Small (1-33%) -Necrotic Tissue Type Adherent Slough Adherent Slough -Structure Exposed N/A -Texture (Keslie-wound Skin Appearance) Callus,Scarring No Abnormality, Callus -Moisture (Kelsie-wound Skin Appearance) Maceration Assessed -Color (Kelsie-wound Skin Appearance) No Abnormality Assessed -Temperature (Kelsie-wound Skin No Abnormality No Abnormality Appearance) (Pt Warm) (Pt Warm) -Tenderness on Palpation (Kelsie-wound No Skin Appearance) -Ulcer Cleansing Soap and Water Soap and Water -Foul Odor after Cleansing No No -Anesthetic Used 5% Lidocaine 5% Lidocaine Gel Gel WC - Nurse 2 - General Ulcer CM Notes Start: 03/15/23 09:45 Freq: Status: Active Protocol: Activity Type Activity Date Activity User E-sign Co-sign Detail Recorded Client Recorded Date Recorded By Document 03/15/23 11:54 DARVIN [id number] 03/15/23 11:56 PL 03/15/23 11:54 Wound Center Nurse 2 -Time 10:07 -Correct Patient Yes -Correct Side, Site, Position Yes -Correct Procedure Yes -Procedure Performed Yes -Type of Procedure Debridement -Clinical Debridement Subcutaneous -Tissue Removed Subcutaneous -Post Debridement (cm) - Length 1.8 -Post Debridement (cm) - Width 1.6 -Post Debridement (cm) - Depth 0.1 -Total Square (Post) (cm) 2.88 -Area of Debridement (cm) - Length 1.8 -Area of Debridement (cm) - Width 1.6 -Total Square (Area) (cm) 2.88 -Tunneling No -Undermining/Tunneling No -Circular Undermining No -Wound/Ulcer Outcome Not Healed -Ulcer Cleansing Rinsed/ Irrigated with Saline -Foul Odor after Cleansing No -Bioengineered Tissue Yes -Type of Bioengineered Tissue Epifix -Expiration Date 11/06/22 -Product Lot Number [id number] -Percent Used 100 -Bleeding Controlled with Pressure -Treatment Response Procedure Tolerated Well -Debridement - Subq, 1st 20sq cm No -Apply Skin Sub - 1st 25 sq cm - Feet 1 -Epifix (per sq cm) 4 Pain Scale: 0-10 Numeric Is Patient Pain Free? Yes - Nurse 3 - General Ulcer D/C NN Start: 03/15/23 09:45 Freq: Status: Active Protocol: Activity Type Activity Date Activity User E-sign Co-sign Detail Recorded Client Recorded Date Recorded By Document 03/15/23 10:28 DL [id number] 03/15/23 10:30 DL 03/15/23 10:28 Wound Care Center Nurse 3 #1 right plantar foot -Foul Odor after Cleansing No -Primary Dressing Applied Aquacel Extra, Optilok 6.5x10 -Other Dressing epifix -Primary Dressing Covered/Secured with Dry Gauze & Roll Gauze, Secured with Tape -Other Covering padded insert -Aquacel Extra 1 -Optilok 6.5x10 1 Treatment Response Procedure Tolerated Well Pain Scale: 0-10 Numeric Is Patient Pain Free? Yes - Visit Discharge Discharge Condition Stable Ambulatory Status Ambulatory Transportation Private Auto Assessment/Plan Assessment/Plan (1) Gastrocnemius equinus of right lower extremity: CODE(S): M21.861 - Other specified acquired deformities of right lower leg (2) Non-pressure chronic ulcer of other part of right foot with fat layer exposed: CODE(S): L97.512 - Non-pressure chronic ulcer of other part of right foot with fat layer exposed (3) Acquired hallux limitus of right foot: CODE(S): M20.5X1 - Other deformities of toe(s) (acquired), right foot (4) Hallux malleus of right foot: CODE(S): M20.31 - Hallux varus (acquired), right foot (5) Hypertension: CODE(S): I10 - Essential (primary) hypertension (6) Morbid obesity with BMI of 40.0-44.9, adult: CODE(S): E66.01 - Morbid (severe) obesity due to excess calories; Z68.41 - Body mass index [BMI] 40.0-44.9, adult (7) Hyperlipidemia: CODE(S): E78.5 - Hyperlipidemia, unspecified (8) Type 2 diabetes mellitus with foot ulcer: CODE(S): E11.621 - Type 2 diabetes mellitus with foot ulcer; L97.509 - Non-pressure chronic ulcer of other part of unspecified foot with unspecified severity (9) Diabetes mellitus with diabetic polyneuropathy: CODE(S): E11.42 - Type 2 diabetes mellitus with diabetic polyneuropathy PLAN: Plan Patient seen and evaluated. Patient was ambulating CAM boot with plantar offloading padding today I have reviewed the LEAS performed 01/17/2023 demonstrating: Left foot triphasic DP and PT on Doppler; Indices left foot PT- 1.05. DP 1.03, Digit 0.91; right foot triphasic DP and PT on Doppler; Indices foot PT 1.10, DP 1.16, digit noncompressible. PVR diminished at ankle and digit on left with noncompressible digit right foot. Impression no evidence of significant occlusive arterial disease. Reviewed diagnostic data from 01/17/2023 demonstrating WBC of 8.7 Radiographic imaging obtained 01/17/2023 demonstrating no evidence of osteomyelitis. I have reviewed this imaging and concur with the radiographic read. I have reviewed her culture results which were obtained 01/17/2023 demonstrating: Providencia rettgeri, Staph aureus, Stap agalactaie, and Kocuria kristinae. She was prescribed Augmentin [address] Omar MD. Patient however states she never realized prescription was phoned in for her to package pick up and had not been taking the antibiotic. She did package pick up antibiotic and has completed antibiotic course. Ulceration underwent debridement as noted in the clinical panel above. Ulcerative site demonstrates healthy granular base with surrounding hyperkeratosis and maceration. No signs of infection. Ulceration measures 1.7 cm x 1.7 cm x 0.1 cm. EpiFix #7 applied to ulcerative base and dressed with Adaptic touch, anchored with Steri-Strips. Absorbant dressing applied followed by Dry sterile dressing applied. She was instructed to change outer dressings as needed due to significant drainage. She was instructed to not get the site wet. Following debridement cultures were obtained 03/01/23 due to her continued significant drainage. She was empirically started on oral doxycycline 100 mg p.o. twice daily x14 days and oral ciprofloxacin 500 mg p.o. twice daily x14 days. She states that she picked up oral abx and started on 03/08/23. Culture results demonstrate PsA, Providencia rettgeri, corynebacterium jeikeium, Staphylococcus cohnii urealyti, and anaerobic cocci. Today 03/22/2023 she completed antibiotic course due to patient leaving town will extend antibiotic course at this time. Ulcerative site demonstrates slight reduction in size versus previous visit, there is some maceration still about ulcerative site. She was instructed to stay off feet as much as possible to continue to aid in pressure reduction to the ulcerative site. Ulceration demonstrates reduction in size with current offloading versus previous visit. Reminded her she is to only ambulate in the CAM boot for offloading. New offloading padding applied. She was instructed to continue offloading in CAM boot for the right lower extremity with plantar offloading padding for first metatarsal head. She was instructed to weight-bear in the CAM boot at all times and not to wear flip-flops. She may remove the boot for shower purposes and sleeping. She voices understanding of this. Discussed that pressure reduction to the site is essential for her healing status. Discussed proper diabetic diet to maintain tight glycemic control. Last A1c 09/2022 was 7.0%. Discussed continued diet and exercise along with lifestyle modification/weight loss to aid in healthy lifestyle. Discussed importance of daily foot checks. Discussed adequate protein intake to aid in wound healing. She may take Jeremy supplementation to aid in wound healing. Discussed being diabetic she is never to go barefoot and should wear closed toed shoes at all times. Discussed with her socks is considered barefoot. Encouraged shoe gear to be worn at all times. She voices understanding of this. Recommend diabetic shoes with plantar offloading padding once ulceration has healed. Discussed signs and symptoms of infection. Discussed if she notices redness about the ulcerative site that moves to the top of the foot and up the foot, purulent drainage from the wound site, increasing foul odor, or if she experiences fever greater than 101 degree, nausea, vomiting, chills that these are signs of a progressing infection and she should report to the ED for IV antibiotics. She voices understanding of this today. The following work up and care recommendations were made: Dressing: EpiFix, Adaptic touch, Steri-Strips, dry sterile dressing. Change outer dressings as needed. Wash: Do not get wet Tissue growth optimization: EpiFix Offload: CAM boot with plantar offloading padding Vascular: Palpable pedal pulses bilateral. LEAS obtained and reviewed from 01/17/2023 demonstrating no significant arterial occlusive disease. She is noted to have mild arterial disease of the popliteal/SFA bilateral. On Doppler DP and PT are triphasic bilateral. Edema: No edema noted Infection: No signs of infection Pain: May take [id number] Tylenol for discomfort Host factors: DM type II with peripheral polyneuropathy, hallux limitus right foot, hallux malleus right foot, morbid obesity, equinus deformity all complicated healing potential I answered all the patient's questions. To return to the wound healing center in 1 week or call sooner if the patient has any questions or concerns.
--- NOTE | 2023-03-29 09:40 | PN.PCM_ITS ---
History of Present Illness Date of Service: 03/29/23 Chief Complaint: Diabetic foot ulceration, right metatarsal-phalangeal joint, plantar surface History of Wound: This is a 58-year-old, morbidly-obese, diabetic female who presents with a large ulceration on the right great toe. The ulceration is located at the right first metatarsophalangeal joint, on the plantar surface. It has been present for approximately 4 months. According to the patient, it originated as a callus, and she ripped off the skin. She has been using Watkin's salve topically. The patient does not see a nuclear technician on a regular basis. Her BMI is 41.8. She denies a history of smoking. She also denies a history of myocardial infarction, congestive heart failure, cerebrovascular accident, pulmonary disease, renal disease, and thyroid disease. Most recent hemoglobin A1c was 7.0 in September,. Laboratory studies obtained recently, dated January 03, 2023, are as follows: White blood count 8.7, hemoglobin 13.5, hematocrit 41.4, platelets 308,000, sodium 138, potassium 4.0, chloride 101, BUN 14, creatinine 0.65, glucose 140, calcium 9.3, bilirubin 0.40, AST 19, ALT 24, alkaline phosphatase 107, protein 7.8, albumin 3.3. Subjective Subjective This is a 58-year-old diabetic female who presents to the wound care center today for follow-up of a plantar first metatarsal head ulceration of the right foot. Graft in place the wound site. She is changing outer dressings daily. She has continued to offload in the CAM boot with plantar offloading padding. She is continuing to take antibiotics. States that she has been on her feet more due to working at the [facility] [employer] and now [facility]. She denies any constitutional symptoms. She denies further complaints. Objective Data Objective Data Vital Signs: Vital Signs Temp Pulse Resp BP O2 Del Method 96.6 F L 74 18 146/67 H Room Air 03/22/23 09:42 03/22/23 09:42 03/22/23 09:42 03/22/23 09:42 03/22/23 09:42 Oxygen Delivery Method Room Air Weight: 110.677 kg Body Mass Index (BMI) 41.8 Physical Exam Const alert, oriented x3, no apparent distress and well nourished General Appearance: cooperative HEENT normocephalic Eyes General Eye: normal appearance of both eyes Neck General: normal visual inspection Lymph Lymphatic: no lymphadenopathy noted and no lymphedema noted Resp normal respiratory effort Cardio regular rate and regular rhythm Extremity normal capillary refill, no joint enlargement, no calf tenderness and no pedal edema Extremity Narrative: DP and PT pulses palpable bilateral. Capillary fill time to the digits less than 5 seconds bilateral. Hair growth diminished to the digits bilateral. Dermatological: Skin appears well-hydrated with normal turgor. Hyperkeratotic tissue Sub first metatarsal head of the left foot with no evidence of open wound. There is a large ulceration noted to the plantar aspect of the first metatarsal head of the right foot with surrounding hyperkeratotic tissue and maceration. Wound bed demonstrates granular tissue. No purulent drainage, no malodor, no palpable fluctuance/bogginess, no visible abscess formation, no lymphangitic streaking. Ulceration does not probe to bone. Musculoskeletal: Muscle strength 5 of 5 age-appropriate. She does demonstrate decreased range of motion of the first metatarsophalangeal joint bilateral without pain or crepitus. Decreased range of motion of the ankle joint in dorsiflexion with the knee extended without pain or crepitus bilateral. Hammertoe deformity of the right hallux. No pain to palpation about the ulcerative site plantar first metatarsal head right foot. Skin no rashes or lesions noted, skin turgor normal and no jaundice Neuro moves all extremities Neuro Narrative: Diminished protective sensation bilaterally secondary to diabetic peripheral p olyneuropathy Debridement Note Debridement Note Wound debrided: Sub first metatarsal head Laterality: Right Wound Grade/Stage: Nichols stage I Type of Debridement: Excisional debridement Anesthesia Used: 5% Lidocaine Gel Depth: Down to and including healthy tissue and in the subcutaneous layer Percentage of wound debrided: 100 Instrument Used: #15 blade Tissue Removed: Fibrous, devitalized subcutaneous, biofilm, slough Severity: Fat Layer Exposed Amount of bleeding with debridement: Mild Bleeding Controlled with: Compression and gauze Patient tolerated procedure: Patient tolerated procedure well Post-Debridement Measurements and Additional Note: Post-Debridement Measurements/Treatment RADHA - Nurse 1 - General Ulcer Assessment Start: 03/15/23 09:45 Freq: Status: Active Protocol: JAXSON Activity Type Activity Date Activity User E-sign Co-sign Detail Recorded Client Recorded Date Recorded By Document 03/15/23 09:45 DL [id number] 03/15/23 09:54 DL Document 03/22/23 09:42 KW [id number] 03/22/23 09:54 KW 03/15/23 03/22/23 09:45 09:42 WC - Today's Visit Information Type of service Follow-up Visit Follow-up Visit (Physician/OIL BURNER INSTALLER (Physician/OIL BURNER INSTALLER ) ) Arrival Mode Ambulatory Ambulatory Transfer Assistance None Patient Identification Verified (Name & Yes Yes ) Patient Requires Transmission-Based No Precautions Height and Weight Body Mass Index (BMI) 41.8 41.8 BMI Classification Obese Obese Vital Signs Temperature (97.8 F-99.1 F) 96.9 F L 96.6 F L Temperature Source Temporal Temporal Pulse Rate (60-100) 74 74 Pulse Location Monitor Monitor Respiratory Rate (12-18) 20 H 18 Respiratory rate source Observation Observation Oxygen Delivery Method Room Air Blood Pressure (90/60-120/80) 157/78 H 146/67 H Blood Pressure Mean (mm Hg) 104 93 Source Monitor Monitor Position Sitting Blood Pressure Location Left Arm History Since Last Visit- (Skip if this is Patient's initial visit) Have you changed medications since your No No last visit? Any new allergies or adverse reactions No No Had a fall/change in ADL's that may No No increase risk of falls Signs or symptoms of abuse and/or No No neglect since last visit Have you been in the hospital since your No No last visit? Has dressing in place as prescribed Yes Yes Has compression in place as prescribed N/A Yes Has offloadiing in place as prescribed Yes Yes Experienced any changes in pain level or No No management Left Footwear Regular Shoe Right Footwear Removable Cast Removable Cast Walker/Walking Walker/Walking Boot Boot Pain Scale: 0-10 Numeric Is Patient Pain Free? Yes Yes - Nurse 1 - General Ulcer Measurement Start: 03/15/23 09:45 Freq: Status: Active Protocol: Activity Type Activity Date Activity User E-sign Co-sign Detail Recorded Client Recorded Date Recorded By Document 03/15/23 09:45 DL [id number] 03/15/23 09:54 DL Document 03/22/23 09:42 KW [id number] 03/22/23 09:54 KW 03/15/23 03/22/23 09:45 09:42 Wound Center Nurse 1 #1 right plantar foot -Current Size (cm) - Length 1.5 1.9 -Current Size (cm) - Width 1.8 1.7 -Current Size (cm) - Depth 0.4 0.2 -Total Square Cm 2.70 3.23 -Photo Taken Yes Yes -Tunneling No -Undermining/Tunneling Yes -Undermining/Tunneling Starts (O'clock 11 ) -Undermining/Tunneling Ends (O'clock) 1 -Maximum Distance (cm) 0.2 -Exudate Amt Large Medium -Exudate Type Serosanguineous Serosanguineous -Wound Margin Distinct, Distinct, Outline Outline Attached Attached -Granulation Amt Large (67-100%) Small (1-33%) -Granulation Quality [place] -Necrosis Amt Small (1-33%) Small (1-33%) -Necrotic Tissue Type Adherent Slough Adherent Slough -Structure Exposed N/A -Texture (Kelsie-wound Skin Appearance) Callus,Scarring No Abnormality, Callus -Moisture (Kelsie-wound Skin Appearance) Maceration Assessed -Color (Kelsie-wound Skin Appearance) No Abnormality Assessed -Temperature (Kelsie-wound Skin No Abnormality No Abnormality Appearance) (Pt Warm) (Pt Warm) -Tenderness on Palpation (Kelsie-wound No Skin Appearance) -Ulcer Cleansing Soap and Water Soap and Water -Foul Odor after Cleansing No No -Anesthetic Used 5% Lidocaine 5% Lidocaine Gel Gel WC - Nurse 2 - General Ulcer CM Notes Start: 03/15/23 09:45 Freq: Status: Active Protocol: Activity Type Activity Date Activity User E-sign Co-sign Detail Recorded Client Recorded Date Recorded By Document 03/15/23 11:54 PL [id number] 03/15/23 11:56 PL Document 03/22/23 12:57 PL [id number] 03/22/23 12:59 PL 03/15/23 03/22/23 11:54 12:57 Wound Center Nurse 2 #1 right plantar foot -Time 10:07 10:17 -Correct Patient Yes Yes -Correct Side, Site, Position Yes Yes -Correct Procedure Yes Yes -Procedure Performed Yes Yes -Type of Procedure Debridement Debridement -Clinical Debridement Subcutaneous Subcutaneous -Tissue Removed Subcutaneous Subcutaneous -Post Debridement (cm) - Length 1.8 1.7 -Post Debridement (cm) - Width 1.6 1.7 -Post Debridement (cm) - Depth 0.1 0.2 -Total Square (Post) (cm) 2.88 2.89 -Area of Debridement (cm) - Length 1.8 1.7 -Area of Debridement (cm) - Width 1.6 1.7 -Total Square (Area) (cm) 2.88 2.89 -Tunneling No No -Undermining/Tunneling No No -Circular Undermining No No -Wound/Ulcer Outcome Not Healed Not Healed -Ulcer Cleansing Rinsed/ Rinsed/ Irrigated with Irrigated with Saline Saline -Foul Odor after Cleansing No No -Bioengineered Tissue Yes Yes -Type of Bioengineered Tissue Epifix Epifix -Expiration Date 11/06/22 12/08/27 -Product Lot Number [id number] -Percent Used 100 100 -Bleeding Controlled with Pressure Pressure -Treatment Response Procedure Procedure Tolerated Well Tolerated Well -Debridement - Subq, 1st 20sq cm No No -Apply Skin Sub - 1st 25 sq cm - Feet 1 1 -Epifix (per sq cm) 4 4 Pain Scale: 0-10 Numeric Is Patient Pain Free? Yes Yes - Nurse 3 - General Ulcer D/C NN Start: 03/15/23 09:45 Freq: Status: Active Protocol: Activity Type Activity Date Activity User E-sign Co-sign Detail Recorded Client Recorded Date Recorded By Document 03/15/23 10:28 DL [id number] 03/15/23 10:30 DL Document 03/22/23 10:30 DL [id number] 03/22/23 10:32 DL 03/15/23 03/22/23 10:28 10:30 Wound Care Center Nurse 3 #1 right plantar foot -Ulcer Cleansing Rinsed/ Irrigated with Saline -Foul Odor after Cleansing No No -Primary Dressing Applied Aquacel Extra, Aquacel Extra, Optilok 6.5x10 Optilok 6.5x10 -Other Dressing epifix -Primary Dressing Covered/Secured with Dry Gauze & Dry Gauze & Roll Gauze, Roll Gauze, Secured with Secured with Tape Tape -Other Covering padded insert -Aquacel Extra 1 1 -Optilok 6.5x10 1 1 Treatment Response Procedure Procedure Tolerated Well Tolerated Well Pain Scale: 0-10 Numeric Is Patient Pain Free? Yes Yes WC - Visit Discharge Discharge Condition Stable Stable Ambulatory Status Ambulatory Ambulatory Transportation Private Auto Private Auto Assessment/Plan Assessment/Plan (1) Gastrocnemius equinus of right lower extremity: CODE(S): M21.861 - Other specified acquired deformities of right lower leg (2) Non-pressure chronic ulcer of other part of right foot with fat layer exposed: CODE(S): L97.512 - Non-pressure chronic ulcer of other part of right foot with fat layer exposed (3) Acquired hallux limitus of right foot: CODE(S): M20.5X1 - Other deformities of toe(s) (acquired), right foot (4) Hallux malleus of right foot: CODE(S): M20.31 - Hallux varus (acquired), right foot (5) Hypertension: CODE(S): I10 - Essential (primary) hypertension (6) Morbid obesity with BMI of 40.0-44.9, adult: CODE(S): E66.01 - Morbid (severe) obesity due to excess calories; Z68.41 - Body mass index [BMI] 40.0-44.9, adult (7) Hyperlipidemia: CODE(S): E78.5 - Hyperlipidemia, unspecified (8) Type 2 diabetes mellitus with foot ulcer: CODE(S): E11.621 - Type 2 diabetes mellitus with foot ulcer; L97.509 - Non-pressure chronic ulcer of other part of unspecified foot with unspecified severity (9) Diabetes mellitus with diabetic polyneuropathy: CODE(S): E11.42 - Type 2 diabetes mellitus with diabetic polyneuropathy PLAN: Plan Patient seen and evaluated. Patient was ambulating CAM boot with plantar offloading padding today I have reviewed the LEAS performed 01/17/2023 demonstrating: Left foot triphasic DP and PT on Doppler; Indices left foot PT- 1.05. DP 1.03, Digit 0.91; right foot triphasic DP and PT on Doppler; Indices foot PT 1.10, DP 1.16, digit noncompressible. PVR diminished at ankle and digit on left with noncompressible digit right foot. Impression no evidence of significant occlusive arterial disease. Reviewed diagnostic data from 01/17/2023 demonstrating WBC of 8.7 Radiographic imaging obtained 01/17/2023 demonstrating no evidence of osteomyelitis. I have reviewed this imaging and concur with the radiographic read. Updated radiograph of the right foot ordered 03/29/2023, awaiting results. I have reviewed her culture results which were obtained 01/17/2023 demonstrating: Providencia rettgeri, Staph aureus, Stap agalactaie, and Kocuria kristinae. She was prescribed Augmentin [address] Omar MD. 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 She did crab picker antibiotic and has completed this antibiotic course. Ulceration underwent debridement as noted in the clinical panel above. Ulcerative site demonstrates healthy granular base with surrounding hyperkeratosis and maceration. No signs of infection. Ulceration measures 1.7 cm x 1.9 cm x 0.1 cm. EpiFix #8 applied to ulcerative base and dressed with Adaptic touch, anchored with Steri-Strips. Absorbant dressing applied followed by Dry sterile dressing applied. She was instructed to change outer dressings as needed due to significant drainage. She was instructed to not get the site wet. Following debridement cultures were obtained 03/01/23 due to her continued significant drainage. She was empirically started on oral doxycycline 100 mg p.o. twice daily x14 days and oral ciprofloxacin 500 mg p.o. twice daily x14 days. She states that she picked up oral abx and started on 03/08/23. Culture results demonstrate PsA, Providencia rettgeri, corynebacterium jeikeium, Staphylococcus cohnii urealyti, and anaerobic cocci. 03/22/2023 she completed antibiotic course and due to patient leaving town antibiotic course was extended. Ulcerative site demonstrates no reduction in size versus previous visit, there is some maceration still about ulcerative site. She was instructed to stay off feet as much as possible to continue to aid in pressure reduction to the ulcerative site. Due to slight increase in size from previous visit she will now remain nonweightbearing to the right lower extremity with assistance of knee scooter. Rx for knee scooter was written today. Reminded her she is to remain nonweightbearing in the CAM boot for offloading with knee scooter assistance. She was instructed to continue offloading in CAM boot for the right lower extremity with plantar offloading padding for first metatarsal head. She was instructed to remain in the CAM boot at all times and not to wear flip-flops. She may remove the boot for shower purposes and sleeping. She voices understanding of this. Discussed that pressure reduction to the site is essen tial for her healing status. Discussed proper diabetic diet to maintain tight glycemic control. Last A1c 09/2022 was 7.0%. Discussed continued diet and exercise along with lifestyle modification/weight loss to aid in healthy lifestyle. Discussed importance of daily foot checks. Discussed adequate protein intake to aid in wound healing. She may take Jeremy supplementation to aid in wound healing. Discussed being diabetic she is never to go barefoot and should wear closed toed shoes at all times. Discussed with her socks is considered barefoot. Encouraged shoe gear to be worn at all times. She voices understanding of this. Recommend diabetic shoes with plantar offloading padding once ulceration has healed. Discussed signs and symptoms of infection. Discussed if she notices redness about the ulcerative site that moves to the top of the foot and up the foot, purulent drainage from the wound site, increasing foul odor, or if she experiences fever greater than 101 degree, nausea, vomiting, chills that these are signs of a progressing infection and she should report to the ED for IV antibiotics. She voices understanding of this today. The following work up and care recommendations were made: Dressing: EpiFix, Adaptic touch, Steri-Strips, dry sterile dressing. Change outer dressings as needed. Wash: Do not get wet Tissue growth optimization: EpiFix Offload: CAM boot with plantar offloading padding Vascular: Palpable pedal pulses bilateral. LEAS obtained and reviewed from 01/17/2023 demonstrating no significant arterial occlusive disease. She is noted to have mild arterial disease of the popliteal/SFA bilateral. On Doppler DP and PT are triphasic bilateral. Edema: No edema noted Infection: No signs of infection Pain: May take [id number] Tylenol for discomfort Host factors: DM type II with peripheral polyneuropathy, hallux limitus right foot, hallux malleus right foot, morbid obesity, equinus deformity all complicated healing potential I answered all the patient's questions. To return to the wound healing center in 1 week or call sooner if the patient has any questions or concerns.
[2023-03-29 09:41] VITALS: BP 164/89; PULSE 91; RESP 20; TEMP 36.1; BMI 41.8
--- NOTE | 2023-03-29 11:15 | RAD_ITS ---
INDICATION: WOUND non-healing wound right foot EXAMINATION/TECHNIQUE: X-RAY - RIGHT XR Foot Min 3 Views 3 VIEWS COMPARISON: Right foot x-rays 01/17/2023 FINDINGS: BONES: No fracture demonstrated. Degenerative changes at the first metatarsophalangeal joint. Degenerative changes of the midfoot. Plantar calcaneal spur. JOINTS: Subluxation at the IP joint of the great toe unchanged. SOFT TISSUES: Soft tissue swelling overlying the great toe at metatarsophalangeal joint through the proximal phalanx. RAD/Foot min 3 Views IMPRESSION: Soft tissue swelling. No definite evidence of osteomyelitis. Degenerative changes at the first MTP joint and chronic appearing deformity of the great toe. Electronically Signed: Judi Bowen MD at 3:19 EDT ,
[2023-04-05 09:47] VITALS: BP 150/81; PULSE 79; RESP 18; TEMP 35.8; BMI 41.8
--- NOTE | 2023-04-05 10:19 | PCM.WC.PN ---
History of Present Illness Date of Service: 04/05/23 Chief Complaint: Diabetic foot ulceration, right metatarsal-phalangeal joint, plantar surface History of Wound: This is a 58-year-old, morbidly-obese, diabetic female who presents with a large ulceration on the right great toe. The ulceration is located at the right first metatarsophalangeal joint, on the plantar surface. It has been present for approximately 4 months. According to the patient, it originated as a callus, and she ripped off the skin. She has been using Watkin's salve topically. The patient does not see a attending anesthesiologist on a regular basis. Her BMI is 41.8. She denies a history of smoking. She also denies a history of myocardial infarction, congestive heart failure, cerebrovascular accident, pulmonary disease, renal disease, and thyroid disease. Most recent hemoglobin A1c was 7.0 in September,. Laboratory studies obtained recently, dated January 03, 2023, are as follows: White blood count 8.7, hemoglobin 13.5, hematocrit 41.4, platelets 308,000, sodium 138, potassium 4.0, chloride 101, BUN 14, creatinine 0.65, glucose 140, calcium 9.3, bilirubin 0.40, AST 19, ALT 24, alkaline phosphatase 107, protein 7.8, albumin 3.3. Subjective Subjective This is a 58-year-old diabetic female who presents to the wound care center today for follow-up of a plantar first metatarsal head ulceration of the right foot. Graft in place the wound site. She is changing outer dressings daily. She has continued to offload in the CAM boot with plantar offloading padding. She is continuing to take antibiotics. States that she did not get her knee scooter and has continued to ambulate in boot. She denies any constitutional symptoms. She denies further complaints. Objective Data Objective Data Vital Signs: Vital Signs Temp Pulse Resp BP O2 Del Method 96.4 F L 79 18 150/81 H Room Air 04/05/23 09:47 04/05/23 09:47 04/05/23 09:47 04/05/23 09:47 03/22/23 09:42 Oxygen Delivery Method Room Air Weight: 110.677 kg Body Mass Index (BMI) 41.8 Physical Exam Const alert, oriented x3, no apparent distress and well nourished General Appearance: cooperative HEENT normocephalic Eyes General Eye: normal appearance of both eyes Neck General: normal visual inspection Lymph Lymphatic: no lymphadenopathy noted and no lymphedema noted Resp normal respiratory effort Cardio regular rate and regular rhythm Extremity normal capillary refill, no joint enlargement, no calf tenderness and no pedal edema Extremity Narrative: DP and PT pulses palpable bilateral. Capillary fill time to the digits less than 5 seconds bilateral. Hair growth diminished to the digits bilateral. Dermatological: Skin appears well-hydrated with normal turgor. Hyperkeratotic tissue Sub first metatarsal head of the left foot with no evidence of open wound. There is a large ulceration noted to the plantar aspect of the first metatarsal head of the right foot with surrounding hyperkeratotic tissue and maceration. Wound bed demonstrates granular tissue. No purulent drainage, no malodor, no palpable fluctuance/bogginess, no visible abscess formation, no lymphangitic streaking. Ulceration does not probe to bone. Musculoskeletal: Muscle strength 5 of 5 age-appropriate. She does demonstrate decreased range of motion of the first metatarsophalangeal joint bilateral without pain or crepitus. Decreased range of motion of the ankle joint in dorsiflexion with the knee extended without pain or crepitus bilateral. Hammertoe deformity of the right hallux. No pain to palpation about the ulcerative site plantar first metatarsal head right foot. Skin no rashes or lesions noted, skin turgor normal and no jaundice Neuro moves all extremities Neuro Narrative: Diminished protective sensation bilaterally secondary to diabetic peripheral polyneuropathy Debridement Note Debridement Note Wound debrided: Sub first metatarsal head Laterality: Right Wound Grade/Stage: Nichols stage I Type of Debridement: Excisional debridement Anesthesia Used: 5% Lidocaine Gel Depth: Down to and including healthy tissue and in the subcutaneous layer Percentage of wound debrided: 100 Instrument Used: 5mm curette Tissue Removed: Fibrous, devitalized subcutaneous, biofilm, slough Severity: Fat Layer Exposed Amount of bleeding with debridement: Mild Bleeding Controlled with: Compression and gauze Patient tolerated procedure: Patient tolerated procedure well Post-Debridement Measurements and Additional Note: Post-Debridement Measurements/Treatment RADHA - Nurse 1 - General Ulcer Assessment Start: 03/15/23 09:45 Freq: Status: Active Protocol: JAXSON Activity Type Activity Date Activity User E-sign Co-sign Detail Recorded Client Recorded Date Recorded By Document 03/15/23 09:45 DL [id number] 03/15/23 09:54 DL Document 03/22/23 09:42 KW [id number] 03/22/23 09:54 KW Document 03/29/23 09:41 DL Desktop 03/29/23 09:47 DL Document 04/05/23 09:47 DL Desktop 04/05/23 09:55 DL 03/15/23 03/22/23 03/29/23 09:45 09:42 09:41 WC - Today's Visit Information Type of service Follow-up Visit Follow-up Visit Follow-up Visit (Physician/ACOUSTICAL LOGGING ENGINEER (Physician/ACOUSTICAL LOGGING ENGINEER (Physician/ACOUSTICAL LOGGING ENGINEER ) ) ) Arrival Mode Ambulatory Ambulatory Ambulatory Transfer Assistance None None Patient Identification Verified (Name & Yes Yes Yes ) Patient Requires Transmission-Based No No Precautions Height and Weight Body Mass Index (BMI) 41.8 41.8 41.8 BMI Classification Obese Obese Obese Vital Signs Temperature (97.8 F-99.1 F) 96.9 F L 96.6 F L 96.9 F L Temperature Source Temporal Temporal Temporal Pulse Rate (60-100) 74 74 91 Pulse Location Monitor Monitor Monitor Respiratory Rate (12-18) 20 H 18 20 H Respiratory rate source Observation Observation Observation Oxygen Delivery Method Room Air Blood Pressure (90/60-120/80) 157/78 H 146/67 H 164/89 H Blood Pressure Mean (mm Hg) 104 93 114 Source Monitor Monitor Monitor Position Sitting Sitting Blood Pressure Location Left Arm Left Arm History Since Last Visit- (Skip if this is Patient's initial visit) Have you changed medications since your No No No last visit? Any new allergies or adverse reactions No No No Had a fall/change in ADL's that may No No No increase risk of falls Signs or symptoms of abuse and/or No No No neglect since last visit Have you been in the hospital since your No No No last visit? Has dressing in place as prescribed Yes Yes Yes Has compression in place as prescribed N/A Yes Yes Has offloadiing in place as prescribed Yes Yes Yes Experienced any changes in pain level or No No No management Left Footwear Regular Shoe Right Footwear Removable Cast Removable Cast Removable Cast Walker/Walking Walker/Walking Walker/Walking Boot Boot Boot Pain Scale: 0-10 Numeric Is Patient Pain Free? Yes Yes Yes 04/05/23 09:47 WC - Today's Visit Information Type of service Follow-up Visit (Physician/ACOUSTICAL LOGGING ENGINEER ) Arrival Mode Ambulatory Transfer Assistance None Patient Identification Verified (Name & Yes ) Patient Requires Transmission-Based No Precautions Height and Weight Body Mass Index (BMI) 41.8 BMI Classification Obese Vital Signs Temperature (97.8 F-99.1 F) 96.4 F L Temperature Source Temporal Pulse Rate (60-100) 79 Pulse Location Monitor Respiratory Rate (12-18) 18 Respiratory rate source Observation Oxygen Delivery Method Blood Pressure (90/60-120/80) 150/81 H Blood Pressure Mean (mm Hg) 104 Source Monitor Position Blood Pressure Location History Since Last Visit- (Skip if this is Patient's initial visit) Have you changed medications since your No last visit? Any new allergies or adverse reactions No Had a fall/change in ADL's that may No increase risk of falls Signs or symptoms of abuse and/or No neglect since last visit Have you been in the hospital since your No last visit? Has dressing in place as prescribed Yes Has compression in place as prescribed No Has offloadiing in place as prescribed Yes Experienced any changes in pain level or No management Left Footwear Right Footwear Removable Cast Walker/Walking Boot Pain Scale: 0-10 Numeric Is Patient Pain Free? Yes - Nurse 1 - General Ulcer Measurement Start: 03/15/23 09:45 Freq: Status: Active Protocol: Activity Type Activity Date Activity User E-sign Co-sign Detail Recorded Client Recorded Date Recorded By Document 03/15/23 09:45 DL [id number] 03/15/23 09:54 DL Document 03/22/23 09:42 KW [id number] 03/22/23 09:54 KW Document 03/29/23 09:41 DL Desktop 03/29/23 09:47 DL Document 04/05/23 09:47 DL Desktop 04/05/23 09:55 DL 03/15/23 03/22/23 03/29/23 09:45 09:42 09:41 Wound Center Nurse 1 #1 right plantar foot -Current Size (cm) - Length 1.5 1.9 2 -Current Size (cm) - Width 1.8 1.7 1.8 -Current Size (cm) - Depth 0.4 0.2 0.2 -Total Square Cm 2.70 3.23 3.6 -Photo Taken Yes Yes Yes -Tunneling No -Undermining/Tunneling Yes -Undermining/Tunneling Starts (O'clock 11 ) -Undermining/Tunneling Ends (O'clock) 1 -Maximum Distance (cm) 0.2 -Exudate Amt Large Medium Large -Exudate Type Serosanguineous Serosanguineous Serosanguineous -Wound Margin Distinct, Distinct, Thickened & Outline Outline Rolled Under Attached Attached -Granulation Amt Large (67-100%) Small (1-33%) Large (67-100%) -Granulation Quality Red Black Black,Red -Necrosis Amt Small (1-33%) Small (1-33%) Small (1-33%) -Necrotic Tissue Type Adherent Slough Adherent Slough Adherent Slough -Structure Exposed N/A N/A -Texture (Kelsie-wound Skin Appearance) Callus,Scarring No Abnormality, Callus,Scarring Callus -Moisture (Kelsie-wound Skin Appearance) Maceration Assessed Maceration -Color (Kelsie-wound Skin Appearance) No Abnormality Assessed No Abnormality -Temperature (Kelsie-wound Skin No Abnormality No Abnormality No Abnormality Appearance) (Pt Warm) (Pt Warm) (Pt Warm) -Tenderness on Palpation (Kelsie-wound No No Skin Appearance) -Ulcer Cleansing Soap and Water Soap and Water Soap and Water -Foul Odor after Cleansing No No No -Anesthetic Used 5% Lidocaine 5% Lidocaine 5% Lidocaine Gel Gel Gel 04/05/23 09:47 Wound Center Nurse 1 #1 right plantar foot -Current Size (cm) - Length 1.2 -Current Size (cm) - Width 1.6 -Current Size (cm) - Depth 0.2 -Total Square Cm 1.92 -Photo Taken -Tunneling -Undermining/Tunneling -Undermining/Tunneling Starts (O'clock ) -Undermining/Tunneling Ends (O'clock) -Maximum Distance (cm) -Exudate Amt Medium -Exudate Type Serosanguineous -Wound Margin Thickened & Rolled Under -Granulation Amt Large (67-100%) -Granulation Quality Red -Necrosis Amt Small (1-33%) -Necrotic Tissue Type Adherent Slough -Structure Exposed N/A -Texture (Kelsie-wound Skin Appearance) Callus,Scarring -Moisture (Kelsie-wound Skin Appearance) Maceration -Color (Kelsie-wound Skin Appearance) No Abnormality -Temperature (Kelsie-wound Skin No Abnormality Appearance) (Pt Warm) -Tenderness on Palpation (Kelsie-wound No Skin Appearance) -Ulcer Cleansing Soap and Water -Foul Odor after Cleansing No -Anesthetic Used 5% Lidocaine Gel WC - Nurse 2 - General Ulcer CM Notes Start: 03/15/23 09:45 Freq: Status: Active Protocol: Activity Type Activity Date Activity User E-sign Co-sign Detail Recorded Client Recorded Date Recorded By Document 03/15/23 11:54 PL [id number] 03/15/23 11:56 PL Document 03/22/23 12:57 PL [id number] 03/22/23 12:59 PL Document 03/29/23 12:00 PL [id number] 03/29/23 12:02 PL 03/15/23 03/22/23 03/29/23 11:54 12:57 12:00 Wound Center Nurse 2 #1 right plantar foot -Time 10:07 10:17 10:04 -Correct Patient Yes Yes Yes -Correct Side, Site, Position Yes Yes Yes -Correct Procedure Yes Yes Yes -Procedure Performed Yes Yes Yes -Type of Procedure Debridement Debridement Debridement -Clinical Debridement Subcutaneous Subcutaneous Subcutaneous -Tissue Removed Subcutaneous Subcutaneous Subcutaneous -Post Debridement (cm) - Length 1.8 1.7 1.7 -Post Debridement (cm) - Width 1.6 1.7 1.9 -Post Debridement (cm) - Depth 0.1 0.2 0.2 -Total Square (Post) (cm) 2.88 2.89 3.23 -Area of Debridement (cm) - Length 1.8 1.7 1.7 -Area of Debridement (cm) - Width 1.6 1.7 1.9 -Total Square (Area) (cm) 2.88 2.89 3.23 -Tunneling No No No -Undermining/Tunneling No No No -Circular Undermining No No No -Wound/Ulcer Outcome Not Healed Not Healed Not Healed -Ulcer Cleansing Rinsed/ Rinsed/ Rinsed/ Irrigated with Irrigated with Irrigated with Saline Saline Saline -Foul Odor after Cleansing No No No -Bioengineered Tissue Yes Yes Yes -Type of Bioengineered Tissue Epifix Epifix Epifix -Expiration Date 11/06/22 12/08/27 12/08/27 -Product Lot Number [id number] -Percent Used 100 100 100 -Bleeding Controlled with Pressure Pressure Pressure -Treatment Response Procedure Procedure Procedure Tolerated Well Tolerated Well Tolerated Well -Debridement - Subq, 1st 20sq cm No No No -Apply Skin Sub - 1st 25 sq cm - Feet 1 1 1 -Epifix (per sq cm) 4 4 4 Pain Scale: 0-10 Numeric Is Patient Pain Free? Yes Yes Yes WC - Nurse 3 - General Ulcer D/C NN Start: 03/15/23 09:45 Freq: Status: Active Protocol: Activity Type Activity Date Activity User E-sign Co-sign Detail Recorded Client Recorded Date Recorded By Document 03/15/23 10:28 DL [id number] 03/15/23 10:30 DL Document 03/22/23 10:30 DL [id number] 03/22/23 10:32 DL Document 03/29/23 10:24 KW Desktop 03/29/23 10:25 KW Edit Result 03/29/23 10:24 KW (1) Desktop 03/29/23 10:34 KW (1) #1 right plantar foot - Primary Dressing Applied Optilok 6.5x10 => Aquacel Extra, => Optilok 6.5x10 - Aquacel Extra => 1 03/15/23 03/22/23 03/29/23 10:28 10:30 10:24 Wound Care Center Nurse 3 #1 right plantar foot -Ulcer Cleansing Rinsed/ Irrigated with Saline -Foul Odor after Cleansing No No -Primary Dressing Applied Aquacel Extra, Aquacel Extra, Aquacel Extra, Optilok 6.5x10 Optilok 6.5x10 Optilok 6.5x10 -Other Dressing epifix -Primary Dressing Covered/Secured with Dry Gauze & Dry Gauze & Dry Gauze & Roll Gauze, Roll Gauze, Roll Gauze, Secured with Secured with Secured with Tape Tape Tape -Other Covering padded insert -Aquacel Extra 1 1 1 -Optilok 6.5x10 1 1 1 Treatment Response Procedure Procedure Tolerated Well Tolerated Well Pain Scale: 0-10 Numeric Is Patient Pain Free? Yes Yes Yes WC - Visit Discharge Discharge Condition Stable Stable Stable Ambulatory Status Ambulatory Ambulatory Ambulatory Transportation Private Auto Private Auto Private Auto Medication Reconcilliation completed & No provided to patient/care provider Clinical Summary of Care Provided Yes Assessment/Plan Assessment/Plan (1) Gastrocnemius equinus of right lower extremity: CODE(S): M21.861 - Other specified acquired deformities of right lower leg (2) Non-pressure chronic ulcer of other part of right foot with fat layer exposed: CODE(S): L97.512 - Non-pressure chronic ulcer of other part of right foot with fat layer exposed (3) Acquired hallux limitus of right foot: CODE(S): M20.5X1 - Other deformities of toe(s) (acquired), right foot (4) Hallux malleus of right foot: CODE(S): M20.31 - Hallux varus (acquired), right foot (5) Hypertension: CODE(S): I10 - Essential (primary) hypertension (6) Morbid obesity with BMI of 40.0-44.9, adult: CODE(S): E66.01 - Morbid (severe) obesity due to excess calories; Z68.41 - Body mass index [BMI] 40.0-44.9, adult (7) Hyperlipidemia: CODE(S): E78.5 - Hyperlipidemia, unspecified (8) Type 2 diabetes mellitus with foot ulcer: CODE(S): E11.621 - Type 2 diabetes mellitus with foot ulcer; L97.509 - Non-pressure chronic ulcer of other part of unspecified foot with unspecified severity (9) Diabetes mellitus with diabetic polyneuropathy: CODE(S): E11.42 - Type 2 diabetes mellitus with diabetic polyneuropathy PLAN: Plan Patient seen and evaluated. Patient was ambulating CAM boot with plantar offloading padding today I have reviewed the LEAS performed 01/17/2023 demonstrating: Left foot triphasic DP and PT on Doppler; Indices left foot PT- 1.05. DP 1.03, Digit 0.91; right foot triphasic DP and PT on Doppler; Indices foot PT 1.10, DP 1.16, digit noncompressible. PVR diminished at ankle and digit on left with noncompressible digit right foot. Impression no evidence of significant occlusive arterial disease. Reviewed diagnostic data from 01/17/2023 demonstrating WBC of 8.7 Radiographic imaging obtained 01/17/2023 demonstrating no evidence of osteomyelitis. I have reviewed this imaging and concur with the radiographic read. Updated radiograph of the right foot ordered 03/29/2023, awaiting results. I have reviewed her culture results which were obtained 01/17/2023 demonstrating: Providencia rettgeri, Staph aureus, Stap agalactaie, and Kocuria kristinae. She was prescribed Augmentin [address] Omar MD. Patient however states she never realized prescription was phoned in for her to grape picker and had not been taking the antibiotic. She did grape picker antibiotic and has completed this antibiotic course. Ulceration underwent debridement as noted in the clinical panel above. Ulcerative site demonstrates healthy granular base with surrounding hyperkeratosis and maceration. No signs of infection. Ulceration measures 1.5 cm x 1.3 cm x 0.1 cm. EpiFix #9 applied to ulcerative base and dressed with Adaptic touch, anchored with Steri-Strips. Absorbant dressing applied followed by Dry sterile dressing applied. She was instructed to change outer dressings as needed due to significant drainage. She was instructed to not get the site wet. Following debridement cultures were obtained 03/01/23 due to her continued significant drainage. She was empirically started on oral doxycycline 100 mg p.o. twice daily x14 days and oral ciprofloxacin 500 mg p.o. twice daily x14 days. She states that she picked up oral abx and started on 03/08/23. Culture results demonstrate PsA, Providencia rettgeri, corynebacterium jeikeium, Staphylococcus cohnii urealyti, and anaerobic cocci. 03/22/2023 she completed antibiotic course and due to patient leaving [facility] antibiotic course was extended. She will finish oral abx today. Ulcerative site demonstrates reduction in size versus previous visit, there is some maceration still about ulcerative site. She was instructed to stay off feet as much as possible to continue to aid in pressure reduction to the ulcerative site. Due to slight increase in size from previous visit she will now remain nonweightbearing to the right lower extremity with assistance of knee scooter. Rx for knee scooter was written 03/29/23. She states she did not get the knee scooter and has continued to ambulate in boot. Reminded her she is to remain nonweightbearing in the CAM boot for offloading with knee scooter assistance. Stressed importance of obtaining knee scooter today. She was instructed to continue offloading in CAM boot for the right lower extremity with plantar offloading padding for first metatarsal head. She was instructed to remain in the CAM boot at all times and not to wear flip-flops. She may remove the boot for shower purposes and sleeping. She voices understanding of this. Discussed that pressure reduction to the site is essential for her healing status. Discussed proper diabetic diet to maintain tight glycemic control. Last A1c 09/2022 was 7.0%. Discussed continued diet and exercise along with lifestyle modification/weight loss to aid in healthy lifestyle. Discussed importance of daily foot checks. Discussed adequate protein intake to aid in wound healing. She may take Jeremy supplementation to aid in wound healing. Discussed being diabetic she is never to go barefoot and should wear closed toed shoes at all times. Discussed with her socks is considered barefoot. Encouraged shoe gear to be worn at all times. She voices understanding of this. Recommend diabetic shoes with plantar offloading padding once ulceration has healed. Discussed signs and symptoms of infection. Discussed if she notices redness about the ulcerative site that moves to the top of the foot and up the foot, purulent drainage from the wound site, increasing foul odor, or if she experiences fever greater than 101 degree, nausea, vomiting, chills that these are signs of a progressing infection and she should report to the ED for IV antibiotics. She voices understanding of this today. The following work up and care recommendations were made: Dressing: EpiFix, Adaptic touch, Steri-Strips, dry sterile dressing. Change outer dressings as needed. Wash: Do not get wet Tissue growth optimization: EpiFix Offload: CAM boot with plantar offloading padding Vascular: Palpable pedal pulses bilateral. LEAS obtained and reviewed from 01/17/2023 demonstrating no significant arterial occlusive disease. She is noted to have mild arterial disease of the popliteal/SFA bilateral. On Doppler DP and PT are triphasic bilateral. Edema: No edema noted Infection: No signs of infection Pain: May take [id number] Tylenol for discomfort Host factors: DM type II with peripheral polyneuropathy, hallux limitus right foot, hallux malleus right foot, morbid obesity, equinus deformity all complicated healing potential I answered all the patient's questions. To return to the wound healing center in 2 weeks or call sooner if the patient has any questions or concerns.
== END 2023-04-07 23:59 | disposition home or self-care (01) ==
LOC: WC 09:45
PROVIDERS: PCP Nurse Practitioner Family; Referring Provider Family Medicine; Visit Provider Student in an Organized Health Care Education/Training Program
DX: E11.621 Type 2 diabetes mellitus with foot ulcer (principal); L97.512 Non-pressure chronic ulcer of other part of right foot with fat layer exposed; E11.42 Type 2 diabetes mellitus with diabetic polyneuropathy; E66.01 Morbid (severe) obesity due to excess calories; E78.5 Hyperlipidemia, unspecified; I10 Essential (primary) hypertension; Q66.30 Other congenital varus deformities of feet, unspecified foot; M20.31 Hallux varus (acquired), right foot; M20.5X1 Other deformities of toe(s) (acquired), right foot; M21.861 Other specified acquired deformities of right lower leg
CPT/HCPCS: 15275; 73630; Q4186

== ENCOUNTER 2023-05-03 09:45 | Outpatient (RCR) | payer OTHER, SELFPAY ==
[2023-04-08 00:21] VITALS: BP 150/81; PULSE 79; RESP 18; TEMP 35.8; BMI 41.8
[2023-04-19 10:12] VITALS: BP 196/97; PULSE 106; RESP 18; TEMP 36.6; BMI 41.8
--- NOTE | 2023-04-19 10:30 | PN.PCM_ITS ---
History of Present Illness Date of Service: 04/19/23 Chief Complaint: Diabetic foot ulceration, right metatarsal-phalangeal joint, plantar surface History of Wound: This is a 58-year-old, morbidly-obese, diabetic female who presents with a large ulceration on the right great toe. The ulceration is located at the right first metatarsophalangeal joint, on the plantar surface. It has been present for approximately 4 months. According to the patient, it originated as a callus, and she ripped off the skin. She has been using Watkin's salve topically. The patient does not see a [employer] certified network professional on a regular basis. Her BMI is 41.8. She denies a history of smoking. She also denies a history of myocardial infarction, congestive heart failure, cerebrovascular accident, pulmonary disease, renal disease, and thyroid disease. Most recent hemoglobin A1c was 7.0 in September,. Laboratory studies obtained recently, dated January 03, 2023, are as follows: White blood count 8.7, hemoglobin 13.5, hematocrit 41.4, platelets 308,000, sodium 138, potassium 4.0, chloride 101, BUN 14, creatinine 0.65, glucose 140, calcium 9.3, bilirubin 0.40, AST 19, ALT 24, alkaline phosphatase 107, protein 7.8, albumin 3.3. Subjective Subjective This is a 58-year-old diabetic female who presents to the wound care center today for follow-up of a plantar first metatarsal head ulceration of the right foot. Graft in place the wound site. She is changing outer dressings daily. She has continued to offload in the CAM boot with plantar offloading padding. She is continuing to take antibiotics. States that she did not get her knee scooter and has continued to ambulate in boot. She denies any constitutional symptoms. She denies further complaints. Objective Data Objective Data Vital Signs: Vital Signs Temp Pulse Resp BP 97.8 F 106 H 18 196/97 H 04/19/23 10:12 04/19/23 10:12 04/19/23 10:12 04/19/23 10:12 Weight: 110.677 kg Body Mass Index (BMI) 41.8 Physical Exam Const alert, oriented x3, no apparent distress and well nourished General Appearance: cooperative HEENT normocephalic Eyes General Eye: normal appearance of both eyes Neck General: normal visual inspection Lymph Lymphatic: no lymphadenopathy noted and no lymphedema noted Resp normal respiratory effort Cardio regular rate and regular rhythm Extremity normal capillary refill, no joint enlargement, no calf tenderness and no pedal edema Extremity Narrative: DP and PT pulses palpable bilateral. Capillary fill time to the digits less than 5 seconds bilateral. Hair growth diminished to the digits bilateral. Dermatological: Skin appears well-hydrated with normal turgor. Hyperkeratotic tissue Sub first metatarsal head of the left foot with no evidence of open wound. There is a large ulceration noted to the plantar aspect of the first metatarsal head of the right foot with surrounding hyperkeratotic tissue and maceration. Wound bed demonstrates granular tissue. No purulent drainage, no malodor, no palpable fluctuance/bogginess, no visible abscess formation, no lymphangitic streaking. Ulceration does not probe to bone. Musculoskeletal: Muscle strength 5 of 5 age-appropriate. She does demonstrate decreased range of motion of the first metatarsophalangeal joint bilateral without pain or crepitus. Decreased range of motion of the ankle joint in dorsiflexion with the knee extended without pain or crepitus bilateral. Hammertoe deformity of the right hallux. No pain to palpation about the ulcerative site plantar first metatarsal head right foot Skin no rashes or lesions noted, skin turgor normal and no jaundice Neuro moves all extremities Neuro Narrative: Decreased protective sensation secondary to diabetic peripheral polyneuropathy Debridement Note Debridement Note Wound debrided: Sub first metatarsal head Laterality: Right Wound Grade/Stage: Nichols stage I Type of Debridement: Excisional debridement Anesthesia Used: 5% Lidocaine Gel Depth: Down to and including healthy tissue and in the subcutaneous layer Percentage of wound debrided: 100 Instrument Used: 5mm curette Tissue Removed: Fibrous, devitalized subcutaneous, biofilm, slough Severity: Fat Layer Exposed Amount of bleeding with debridement: Mild Bleeding Controlled with: Compression and gauze Patient tolerated procedure: Patient tolerated procedure well Post-Debridement Measurements and Additional Note: Post-Debridement Measurements/Treatment WC - Nurse 1 - General Ulcer Assessment Start: 04/19/23 10:12 Freq: Status: Active Protocol: RADHA.[email or web address] Activity Type Activity Date Activity User E-sign Co-sign Detail Recorded Client Recorded Date Recorded By Document 04/19/23 10:12 PL Desktop 04/19/23 10:14 PL 04/19/23 10:12 WC - Today's Visit Information Type of service Follow-up Visit (Physician/[employer] ) Arrival Mode Ambulatory Transfer Assistance None Patient Identification Verified (Name & Yes ) Patient Requires Transmission-Based No Precautions Height and Weight Body Mass Index (BMI) 41.8 BMI Classification Obese Vital Signs Temperature (97.8 F-99.1 F) 97.8 F Temperature Source Temporal Pulse Rate (60-100) 106 H Respiratory Rate (12-18) 18 Blood Pressure (90/60-120/80) 196/97 H Blood Pressure Mean (mm Hg) 130 History Since Last Visit- (Skip if this is Patient's initial visit) Have you changed medications since your No last visit? Any new allergies or adverse reactions No Had a fall/change in ADL's that may No increase risk of falls Signs or symptoms of abuse and/or No neglect since last visit Have you been in the hospital since your No last visit? Has dressing in place as prescribed Yes Has compression in place as prescribed Yes Has offloadiing in place as prescribed Yes Experienced any changes in pain level or No management Pain Scale: 0-10 Numeric Is Patient Pain Free? Yes Assessment/Plan Assessment/Plan (1) Gastrocnemius equinus of right lower extremity: CODE(S): M21.861 - Other specified acquired deformities of right lower leg (2) Non-pressure chronic ulcer of other part of right foot with fat layer exposed: CODE(S): L97.512 - Non-pressure chronic ulcer of other part of right foot with fat layer exposed (3) Acquired hallux limitus of right foot: CODE(S): M20.5X1 - Other deformities of toe(s) (acquired), right foot (4) Hallux malleus of right foot: CODE(S): M20.31 - Hallux varus (acquired), right foot (5) Type 2 diabetes mellitus with foot ulcer: CODE(S): E11.621 - Type 2 diabetes mellitus with foot ulcer; L97.509 - Non-pressure chronic ulcer of other part of unspecified foot with unspecified severity (6) Diabetes mellitus with diabetic polyneuropathy: CODE(S): E11.42 - Type 2 diabetes mellitus with diabetic polyneuropathy (7) Diabetic foot ulcer associated with diabetes mellitus due to underlying condition: CODE(S): E08.621 - Diabetes mellitus due to underlying condition with foot ulcer; L97.509 - Non-pressure chronic ulcer of other part of unspecified foot with unspecified severity QUALIFIERS: Diabetic foot ulcer location: toe Laterality: right Non-pressure ulcer stage: with fat layer exposed Qualified Code(s): E08.621 - Diabetes mellitus due to underlying condition with foot ulcer; L97.512 - Non- pressure chronic ulcer of other part of right foot with fat layer exposed (8) Morbid obesity with BMI of 40.0-44.9, adult: CODE(S): E66.01 - Morbid (severe) obesity due to excess calories; Z68.41 - Body mass index [BMI] 40.0-44.9, adult (9) Hyperlipidemia: CODE(S): E78.5 - Hyperlipidemia, unspecified (10) Hypertension: CODE(S): I10 - Essential (primary) hypertension PLAN: Plan Patient seen and evaluated. Patient was ambulating CAM boot with plantar offloading padding today I have reviewed the LEAS performed 01/17/2023 demonstrating: Left foot triphasic DP and PT on Doppler; Indices left foot PT- 1.05. DP 1.03, Digit 0.91; right foot triphasic DP and PT on Doppler; Indices foot PT 1.10, DP 1.16, digit noncompressible. PVR diminished at ankle and digit on left with noncompressible digit right foot. Impression no evidence of significant occlusive arterial disease. Reviewed diagnostic data from 01/17/2023 demonstrating WBC of 8.7 Radiographic imaging obtained 01/17/2023 demonstrating no evidence of osteomyelitis. I have reviewed this imaging and concur with the radiographic read. Updated radiograph of the right foot ordered 03/29/2023, radiograph demonstrates no signs of osteomyelitis. I have reviewed her culture results which were obtained 01/17/2023 demonstrating: Providencia rettgeri, Staph aureus, Stap agalactaie, and Kocuria kristinae. She was prescribed Augmentin [address] Omar MD. Patient however states she never realized prescription was phoned in for her to pick and shovel man and had not been taking the antibiotic. She did pick and shovel man antibiotic and has completed this antibiotic course. Ulceration underwent debridement as noted in the clinical panel above. Ulcerative site demonstrates healthy granular base with surrounding hyperkeratosis and maceration. No signs of infection. Ulceration measures 1.5 cm x 1.0 cm x 0.1 cm. EpiFix #10 applied to ulcerative base and dressed with Adaptic touch, anchored with Steri-Strips. Absorbant dressing applied followed by Dry sterile dressing applied. She was instructed to change outer dressings as needed due to significant drainage. She was instructed to not get the site wet. Ulceration does demonstrate reduction in size versus previous visit. Following debridement cultures were obtained 03/01/23 due to her continued significant drainage. She was empirically started on oral doxycycline 100 mg p.o. twice daily x14 days and oral ciprofloxacin 500 mg p.o. twice daily x14 days. She states that she picked up oral abx and started on 03/08/23. Culture results demonstrate PsA, Providencia rettgeri, corynebacterium jeikeium, Staphylococcus cohnii urealyti, and anaerobic cocci. 03/22/2023 she completed antibiotic course and due to patient leaving town antibiotic course was extended. She will finished oral abx 04/05/23. Ulcerative site demonstrates reduction in size versus previous visit, there is some maceration still about ulcerative site. She was instructed to stay off feet as much as possible to continue to aid in pressure reduction to the ulcerative site. Due to slight increase in size from previous visit she will now remain nonweightbearing to the right lower extremity with assistance of knee scooter. Rx for knee scooter was written 03/29/23. She states she did get the knee scooter is using this to remain non-weight bearing to the right foot. Reminded her she is to remain nonweightbearing in the CAM boot for offloading with knee scooter assistance. Stressed importance of continuing knee scooter today. She was instructed to continue offloading in CAM boot for the right lower extremity with plantar offloading padding for first metatarsal head. She was instructed to remain in the CAM boot at all times and not to wear flip-flops. She may remove the boot for shower purposes and sleeping. She voices understanding of this. Discussed that pressure reduction to the site is essential for her healing status. Discussed proper diabetic diet to maintain tight glycemic control. Last A1c 09/2022 was 7.0%. Discussed continued diet and exercise along with lifestyle modification/weight loss to aid in healthy lifestyle. Discussed importance of daily foot checks. Discussed adequate protein intake to aid in wound healing. She may take Jeremy supplementation to aid in wound healing. Discussed being diabetic she is never to go barefoot and should wear closed toed shoes at all times. Discussed with her socks is considered barefoot. Encouraged shoe gear to be worn at all times. She voices understanding of this. Recommend diabetic shoes with plantar offloading padding once ulceration has healed. Discussed signs and symptoms of infection. Discussed if she notices redness about the ulcerative site that moves to the top of the foot and up the foot, purulent drainage from the wound site, increasing foul odor, or if she experiences fever greater than 101 degree, nausea, vomiting, chills that these are signs of a progressing infection and she should report to the ED for IV antibiotics. She voices understanding of this today. The following work up and care recommendations were made: Dressing: EpiFix, Adaptic touch, Steri-Strips, dry sterile dressing. Change outer dressings as needed. Wash: Do not get wet Tissue growth optimization: EpiFix Offload: CAM boot with plantar offloading padding Vascular: Palpable pedal pulses bilateral. LEAS obtained and reviewed from 01/17/2023 demonstrating no significant arterial occlusive disease. She is noted to have mild arterial disease of the popliteal/SFA bilateral. On Doppler DP and PT are triphasic bilateral. Edema: No edema noted Infection: No signs of infection Pain: May take [id number] Tylenol for discomfort Host factors: DM type II with peripheral polyneuropathy, hallux limitus right foot, hallux malleus right foot, morbid obesity, equinus deformity all complicated healing potential I answered all the patient's questions. To return to the wound healing center in 2 weeks or call sooner if the patient has any questions or concerns.
[2023-05-03 09:58] VITALS: BP 123/66; PULSE 72; RESP 16; TEMP 36.1; BMI 41.8
--- NOTE | 2023-05-03 10:04 | PCM.WC.PN ---
History of Present Illness Date of Service: 05/03/23 Chief Complaint: Diabetic foot ulceration, right metatarsal-phalangeal joint, plantar surface History of Wound: This is a 58-year-old, morbidly-obese, diabetic female who presents with a large ulceration on the right great toe. The ulceration is located at the right first metatarsophalangeal joint, on the plantar surface. It has been present for approximately 4 months. According to the patient, it originated as a callus, and she ripped off the skin. She has been using Watkin's salve topically. The patient does not see a unionmelt operator on a regular basis. Her BMI is 41.8. She denies a history of smoking. She also denies a history of myocardial infarction, congestive heart failure, cerebrovascular accident, pulmonary disease, renal disease, and thyroid disease. Most recent hemoglobin A1c was 7.0 in September,. Laboratory studies obtained recently, dated January 03, 2023, are as follows: White blood count 8.7, hemoglobin 13.5, hematocrit 41.4, platelets 308,000, sodium 138, potassium 4.0, chloride 101, BUN 14, creatinine 0.65, glucose 140, calcium 9.3, bilirubin 0.40, AST 19, ALT 24, alkaline phosphatase 107, protein 7.8, albumin 3.3. Subjective Subjective This is a 58-year-old diabetic female who presents to the wound care center today for follow-up of a plantar first metatarsal head ulceration of the right foot. Graft in place the wound site. She is changing outer dressings daily. She has continued to offload in the CAM boot with plantar offloading padding. She states she is offloading with knee scooter and cam boot. She has recently returned from a trip to [place]. She denies any constitutional symptoms. She denies further complaints. Objective Data Objective Data Vital Signs: Vital Signs Temp Pulse Resp BP 97.0 F L 72 16 123/66 H 05/03/23 09:58 05/03/23 09:58 05/03/23 09:58 05/03/23 09:58 Weight: 110.677 kg Body Mass Index (BMI) 41.8 Physical Exam Const alert, oriented x3, no apparent distress and well nourished General Appearance: cooperative HEENT normocephalic Eyes General Eye: normal appearance of both eyes Neck General: normal visual inspection Lymph Lymphatic: no lymphadenopathy noted and no lymphedema noted Resp normal respiratory effort Cardio regular rate and regular rhythm Extremity normal capillary refill, no joint enlargement, no calf tenderness and no pedal edema Extremity Narrative: DP and PT pulses palpable bilateral. Capillary fill time to the digits less than 5 seconds bilateral. Hair growth diminished to the digits bilateral. Dermatological: Skin appears well-hydrated with normal turgor. Hyperkeratotic tissue Sub first metatarsal head of the left foot with no evidence of open wound. There is a large ulceration noted to the plantar aspect of the first metatarsal head of the right foot with surrounding hyperkeratotic tissue and maceration. Wound bed demonstrates granular tissue. No purulent drainage, no malodor, no palpable fluctuance/bogginess, no visible abscess formation, no lymphangitic streaking. Ulceration does not probe to bone. Musculoskeletal: Muscle strength 5 of 5 age-appropriate. She does demonstrate decreased range of motion of the first metatarsophalangeal joint bilateral without pain or crepitus. Decreased range of motion of the ankle joint in dorsiflexion with the knee extended without pain or crepitus bilateral. Hammertoe deformity of the right hallux. No pain to palpation about the ulcerative site plantar first metatarsal head right foot Skin no rashes or lesions noted, skin turgor normal and no jaundice Neuro moves all extremities Neuro Narrative: Decreased protective sensation secondary to diabetic peripheral polyneuropathy Debridement Note Debridement Note Wound debrided: Sub first metatarsal head right foot Laterality: Right Wound Grade/Stage: Nichols stage I Type of Debridement: Excisional debridement Anesthesia Used: 5% Lidocaine Gel Depth: Down to and including healthy tissue and in the subcutaneous layer Percentage of wound debrided: 100 Instrument Used: 3mm curette Tissue Removed: Fibrous, devitalized subcutaneous, biofilm, slough Severity: Fat Layer Exposed Amount of bleeding with debridement: Mild Bleeding Controlled with: Compression and gauze Patient tolerated procedure: Patient tolerated procedure well Post-Debridement Measurements and Additional Note: Post-Debridement Measurements/Treatment WC - Nurse 1 - General Ulcer Assessment Start: 04/19/23 10:12 Freq: Status: Active Protocol: RADHA.LOWEXT Activity Type Activity Date Activity User E-sign Co-sign Detail Recorded Client Recorded Date Recorded By Document 04/19/23 10:12 PL Desktop 04/19/23 10:14 PL Document 10/26/23 09:58 Laptop 05/03/23 10:01 04/19/23 05/03/23 10:12 09:58 - Today's Visit Information Type of service Follow-up Visit Follow-up Visit (Physician/MICROWAVE TECHNICIAN (Physician/MICROWAVE TECHNICIAN ) ) Arrival Mode Ambulatory Ambulatory Transfer Assistance None Patient Identification Verified (Name & Yes Yes ) Patient Requires Transmission-Based No No Precautions Height and Weight Body Mass Index (BMI) 41.8 41.8 BMI Classification Obese Obese Vital Signs Temperature (97.8 F-99.1 F) 97.8 F 97.0 F L Temperature Source Temporal Temporal Pulse Rate (60-100) 106 H 72 Pulse Location Monitor Respiratory Rate (12-18) 18 16 Respiratory rate source Observation Blood Pressure (90/60-120/80) 196/97 H 123/66 H Blood Pressure Mean (mm Hg) 130 85 Source Monitor Position Sitting Blood Pressure Location Left Arm History Since Last Visit- (Skip if this is Patient's initial visit) Have you changed medications since your No No last visit? Any new allergies or adverse reactions No No Had a fall/change in ADL's that may No No increase risk of falls Signs or symptoms of abuse and/or No No neglect since last visit Have you been in the hospital since your No No last visit? Has dressing in place as prescribed Yes Yes Has compression in place as prescribed Yes N/A Has offloadiing in place as prescribed Yes Yes Experienced any changes in pain level or No No management Left Footwear Regular Shoe Right Footwear Surgical Shoe with pressure relief insole Pain Scale: 0-10 Numeric Is Patient Pain Free? Yes Yes - Nurse 1 - General Ulcer Measurement Start: 04/19/23 10:12 Freq: Status: Active Protocol: Activity Type Activity Date Activity User E-sign Co-sign Detail Recorded Client Recorded Date Recorded By Document 05/03/23 09:58 Laptop 05/03/23 10:01 05/03/23 09:58 Wound Center Nurse 1 #1 right plantar foot -Combined with other wound No -Current Size (cm) - Length 0.8 -Current Size (cm) - Width 0.3 -Current Size (cm) - Depth 0.1 -Total Square Cm 0.24 -Photo Taken No -Epithelialization Large 67-100% -Tunneling No -Undermining/Tunneling No -Circular Undermining No -Exudate Amt Small -Exudate Type Serosanguineous -Wound Margin Flat & Intact -Granulation Amt Large (67-100%) -Granulation Quality Red -Slough/Fibrin Yes -Necrosis Amt Small (1-33%) -Necrotic Tissue Type Adherent Slough -Structure Exposed N/A -Texture (Kelsie-wound Skin Appearance) Assessed,Callus -Moisture (Kelsie-wound Skin Appearance) Assessed,Dry/ Scaly -Color (Kelsie-wound Skin Appearance) Assessed -Temperature (Kelsie-wound Skin No Abnormality Appearance) (Pt Warm) -Tenderness on Palpation (Kelsie-wound No Skin Appearance) -Ulcer Cleansing Wound Cleanser -Foul Odor after Cleansing No -Anesthetic Used 5% Lidocaine Gel Lower Limb Edema Present NA WC - Nurse 2 - General Ulcer CM Notes Start: 04/19/23 10:12 Freq: Status: Active Protocol: Activity Type Activity Date Activity User E-sign Co-sign Detail Recorded Client Recorded Date Recorded By Document 04/19/23 17:59 PL [id number] 04/19/23 18:00 PL 04/19/23 17:59 Wound Center Nurse 2 #1 right plantar foot -Time 10:37 -Correct Patient Yes -Correct Side, Site, Position Yes -Correct Procedure Yes -Procedure Performed Yes -Type of Procedure Debridement -Clinical Debridement Subcutaneous -Tissue Removed Subcutaneous -Post Debridement (cm) - Length 1.5 -Post Debridement (cm) - Width 1.0 -Post Debridement (cm) - Depth 0.1 -Total Square (Post) (cm) 1.50 -Area of Debridement (cm) - Length 1.5 -Area of Debridement (cm) - Width 1.0 -Total Square (Area) (cm) 1.50 -Tunneling No -Undermining/Tunneling No -Circular Undermining No -Wound/Ulcer Outcome Not Healed -Ulcer Cleansing Rinsed/ Irrigated with Saline -Foul Odor after Cleansing No -Bioengineered Tissue Yes -Type of Bioengineered Tissue Epifix 18mm Disc -Expiration Date 01/07/28 -Product Lot Number [id number] -Percent Used 100 -Bleeding Controlled with Pressure -Treatment Response Procedure Tolerated Well -Debridement - Subq, 1st 20sq cm No -Apply Skin Sub - 1st 25 sq cm - Feet 1 -Epifix 18mm Disc 3 Pain Scale: 0-10 Numeric Is Patient Pain Free? Yes WC - Nurse 3 - General Ulcer D/C NN Start: 04/19/23 10:12 Freq: Status: Active Protocol: Activity Type Activity Date Activity User E-sign Co-sign Detail Recorded Client Recorded Date Recorded By Document 04/19/23 11:03 Desktop 04/19/23 11:03 04/19/23 11:03 Wound Care Center Nurse 3 #1 right plantar foot -Ulcer Cleansing Rinsed/ Irrigated with Saline -Foul Odor after Cleansing No -Primary Dressing Applied Optilok 6.5x10 -Primary Dressing Covered/Secured with Dry Gauze & Roll Gauze, Secured with Tape -Optilok 6.5x10 1 Pain Scale: 0-10 Numeric Is Patient Pain Free? Yes WC - Visit Discharge Discharge Condition Stable Ambulatory Status Ambulatory Transportation Private Auto Medication Reconcilliation completed & Yes provided to patient/care provider Clinical Summary of Care Provided Yes Assessment/Plan Assessment/Plan (1) Gastrocnemius equinus of right lower extremity: CODE(S): M21.861 - Other specified acquired deformities of right lower leg (2) Non-pressure chronic ulcer of other part of right foot with fat layer exposed: CODE(S): L97.512 - Non-pressure chronic ulcer of other part of right foot with fat layer exposed (3) Acquired hallux limitus of right foot: CODE(S): M20.5X1 - Other deformities of toe(s) (acquired), right foot (4) Hallux malleus of right foot: CODE(S): M20.31 - Hallux varus (acquired), right foot (5) Type 2 diabetes mellitus with foot ulcer: CODE(S): E11.621 - Type 2 diabetes mellitus with foot ulcer; L97.509 - Non-pressure chronic ulcer of other part of unspecified foot with unspecified severity (6) Diabetes mellitus with diabetic polyneuropathy: CODE(S): E11.42 - Type 2 diabetes mellitus with diabetic polyneuropathy (7) Diabetic foot ulcer associated with diabetes mellitus due to underlying condition: CODE(S): E08.621 - Diabetes mellitus due to underlying condition with foot ulcer; L97.509 - Non-pressure chronic ulcer of other part of unspecified foot with unspecified severity QUALIFIERS: Diabetic foot ulcer location: toe Laterality: right Non-pressure ulcer stage: with fat layer exposed Qualified Code(s): E08.621 - Diabetes mellitus due to underlying condition with foot ulcer; L97.512 - Non-pressure chronic ulcer of other part of right foot with fat layer exposed (8) Morbid obesity with BMI of 40.0-44.9, adult: CODE(S): E66.01 - Morbid (severe) obesity due to excess calories; Z68.41 - Body mass index [BMI] 40.0-44.9, adult (9) Hyperlipidemia: CODE(S): E78.5 - Hyperlipidemia, unspecified (10) Hypertension: CODE(S): I10 - Essential (primary) hypertension PLAN: Plan Patient seen and evaluated. Patient was non-weight bearing in CAM boot with plantar offloading padding and knee scooter today I have reviewed the LEAS performed 01/17/2023 demonstrating: Left foot triphasic DP and PT on Doppler; Indices left foot PT- 1.05. DP 1.03, Digit 0.91; right foot triphasic DP and PT on Doppler; Indices foot PT 1.10, DP 1.16, digit noncompressible. PVR diminished at ankle and digit on left with noncompressible digit right foot. Impression no evidence of significant occlusive arterial disease. Reviewed diagnostic data from 01/17/2023 demonstrating WBC of 8.7 Radiographic imaging obtained 01/17/2023 demonstrating no evidence of osteomyelitis. I have reviewed this imaging and concur with the radiographic read. Updated radiograph of the right foot ordered 03/29/2023, radiograph demonstrates no signs of osteomyelitis. I have reviewed her culture results which were obtained 01/17/2023 demonstrating: Providencia rettgeri, Staph aureus, Stap agalactaie, and Kocuria kristinae. She was prescribed Augmentin [address] Omar MD. Patient however states she never realized prescription was phoned in for her to picking tech and had not been taking the antibiotic. She did picking tech antibiotic and has completed this antibiotic course. Ulceration underwent debridement as noted in the clinical panel above. Ulcerative site demonstrates healthy granular base with surrounding hyperkeratosis. No signs of infection. Ulceration measures 1.1 cm x 0.3 cm x 0.1 cm. Katrina applied to ulcerative base and dressed with dry sterile dressing. She is to change dressing daily. Ulceration does demonstrate reduction in size versus previous visit. Following debridement cultures were obtained 03/01/23 due to her continued significant drainage. She was empirically started on oral doxycycline 100 mg p.o. twice daily x14 days and oral ciprofloxacin 500 mg p.o. twice daily x14 days. She states that she picked up oral abx and started on 03/08/23. Culture results demonstrate PsA, Providencia rettgeri, corynebacterium jeikeium, Staphylococcus cohnii urealyti, and anaerobic cocci. 03/22/2023 she completed antibiotic course and due to patient leaving town antibiotic course was extended. She will finished oral abx 04/05/23. She was instructed to stay off feet as much as possible to continue to aid in pressure reduction to the ulcerative site. Rx for knee scooter was written 03/29/23. She states she did get the knee scooter is using this to remain non-weight bearing to the right foot. Reminded her she is to remain nonweightbearing in the CAM boot for offloading with knee scooter assistance. Stressed importance of continuing knee scooter today. She was instructed to continue offloading in CAM boot for the right lower extremity with plantar offloading padding for first metatarsal head. She was instructed to remain in the CAM boot at all times and not to wear flip-flops. She may remove the boot for shower purposes and sleeping. She voices understanding of this. Discussed that pressure reduction to the site is essential for her healing status. Discussed proper diabetic diet to maintain tight glycemic control. Last A1c 09/2022 was 7.0%. Discussed continued diet and exercise along with lifestyle modification/weight loss to aid in healthy lifestyle. Discussed importance of daily foot checks. Discussed adequate protein intake to aid in wound healing. She may take Jeremy supplementation to aid in wound healing. Discussed being diabetic she is never to go barefoot and should wear closed toed shoes at all times. Discussed with her socks is considered barefoot. Encouraged shoe gear to be worn at all times. She voices understanding of this. Recommend diabetic shoes with plantar offloading padding once ulceration has healed. Discussed signs and symptoms of infection. Discussed if she notices redness about the ulcerative site that moves to the top of the foot and up the foot, purulent drainage from the wound site, increasing foul odor, or if she experiences fever greater than 101 degree, nausea, vomiting, chills that these are signs of a progressing infection and she should report to the ED for IV antibiotics. She voices understanding of this today. The following work up and care recommendations were made: Dressing: Katrina and dry sterile dressing. Change daily Wash: Soap and water Tissue growth optimization: Katrina Offload: CAM boot with plantar offloading padding. Remain nonweightbearing to right lower extremity with assistance of knee scooter. Vascular: Palpable pedal pulses bilateral. LEAS obtained and reviewed from 01/17/2023 demonstrating no significant arterial occlusive disease. She is noted to have mild arterial disease of the popliteal/SFA bilateral. On Doppler DP and PT are triphasic bilateral. Edema: No edema noted Infection: No signs of infection Pain: May take [id number] Tylenol for discomfort Host factors: DM type II with peripheral polyneuropathy, hallux limitus right foot, hallux malleus right foot, morbid obesity, equinus deformity all complicated healing potential I answered all the patient's questions. To return to the wound healing center in 2 weeks or call sooner if the patient has any questions or concerns.
== END 2023-05-08 23:59 | disposition home or self-care (01) ==
LOC: WC 09:45
PROVIDERS: PCP Nurse Practitioner Family; Referring Provider Family Medicine; Visit Provider Student in an Organized Health Care Education/Training Program
DX: E11.621 Type 2 diabetes mellitus with foot ulcer (principal); E08.621 Diabetes mellitus due to underlying condition with foot ulcer; L97.512 Non-pressure chronic ulcer of other part of right foot with fat layer exposed; E11.42 Type 2 diabetes mellitus with diabetic polyneuropathy; E66.01 Morbid (severe) obesity due to excess calories; Z68.41 Body mass index [BMI] 40.0-44.9, adult; M20.31 Hallux varus (acquired), right foot; E78.5 Hyperlipidemia, unspecified; I10 Essential (primary) hypertension; M20.5X1 Other deformities of toe(s) (acquired), right foot; M21.861 Other specified acquired deformities of right lower leg
CPT/HCPCS: 11042; 15275; Q4186

== ENCOUNTER 2023-06-07 10:00 | Outpatient (RCR) | payer OTHER, SELFPAY ==
[2023-05-09 00:40] VITALS: BP 123/66; PULSE 72; RESP 16; TEMP 36.1; BMI 41.8
[2023-05-17 08:40] VITALS: RESP 18; BMI 41.8
--- NOTE | 2023-05-17 09:30 | PCM.WC.PN ---
History of Present Illness Date of Service: 05/17/23 Chief Complaint: Diabetic foot ulceration, right metatarsal-phalangeal joint, plantar surface History of Wound: This is a 58-year-old, morbidly-obese, diabetic female who presents with a large ulceration on the right great toe. The ulceration is located at the right first metatarsophalangeal joint, on the plantar surface. It has been present for approximately 4 months. According to the patient, it originated as a callus, and she ripped off the skin. She has been using Watkin's salve topically. The patient does not see a board design engineer on a regular basis. Her BMI is 41.8. She denies a history of smoking. She also denies a history of myocardial infarction, congestive heart failure, cerebrovascular accident, pulmonary disease, renal disease, and thyroid disease. Most recent hemoglobin A1c was 7.0 in September,. Laboratory studies obtained recently, dated January 03, 2023, are as follows: White blood count 8.7, hemoglobin 13.5, hematocrit 41.4, platelets 308,000, sodium 138, potassium 4.0, chloride 101, BUN 14, creatinine 0.65, glucose 140, calcium 9.3, bilirubin 0.40, AST 19, ALT 24, alkaline phosphatase 107, protein 7.8, albumin 3.3. Subjective Subjective This is a 58-year-old diabetic female who presents to the wound care center today for follow-up of a plantar first metatarsal head ulceration of the right foot. She is changing dressings daily with Katrina. She has continued to offload in the CAM boot with plantar offloading padding and remaining nonweightbearing to the right lower extremity with assistance of knee scooter. She denies any constitutional symptoms. She denies further complaints. Objective Data Objective Data Vital Signs: Vital Signs Temp Pulse Resp BP O2 Del Method 97.0 F L 72 18 123/66 H Room Air 05/09/23 00:40 05/09/23 00:40 05/17/23 08:40 05/09/23 00:40 05/17/23 08:40 Oxygen Delivery Method Room Air Weight: 110.677 kg Body Mass Index (BMI) 41.8 Physical Exam Const alert, oriented x3, no apparent distress and well nourished General Appearance: cooperative HEENT normocephalic Eyes General Eye: normal appearance of both eyes Neck General: normal visual inspection Lymph Lymphatic: no lymphadenopathy noted and no lymphedema noted Resp normal respiratory effort Cardio regular rate and regular rhythm Extremity normal capillary refill, no joint enlargement, no calf tenderness and no pedal edema Extremity Narrative: DP and PT pulses palpable bilateral. Capillary fill time to the digits less than 5 seconds bilateral. Hair growth diminished to the digits bilateral. Dermatological: Skin appears well-hydrated with normal turgor. Hyperkeratotic tissue Sub first metatarsal head of the left foot with no evidence of open wound. There is a large ulceration noted to the plantar aspect of the first metatarsal head of the right foot with surrounding hyperkeratotic tissue and maceration. Wound bed demonstrates granular tissue. No purulent drainage, no malodor, no palpable fluctuance/bogginess, no visible abscess formation, no lymphangitic streaking. Ulceration does not probe to bone. Musculoskeletal: Muscle strength 5 of 5 age-appropriate. She does demonstrate decreased range of motion of the first metatarsophalangeal joint bilateral without pain or crepitus. Decreased range of motion of the ankle joint in dorsiflexion with the knee extended without pain or crepitus bilateral. Hammertoe deformity of the right hallux. No pain to palpation about the ulcerative site plantar first metatarsal head right foot Skin no rashes or lesions noted, skin turgor normal and no jaundice Neuro moves all extremities Neuro Narrative: Decreased protective sensation secondary to diabetic peripheral polyneuropathy Debridement Note Debridement Note Wound debrided: Sub first metatarsal right foot Laterality: Right Wound Grade/Stage: Nichols stage I Type of Debridement: Excisional debridement Anesthesia Used: 5% Lidocaine Gel Depth: Down to and including healthy tissue and in the subcutaneous layer Percentage of wound debrided: 100 Instrument Used: #15 blade Tissue Removed: Fibrous, devitalized subcutaneous, biofilm, slough Severity: Fat Layer Exposed Amount of bleeding with debridement: Mild Bleeding Controlled with: Compression and gauze Patient tolerated procedure: Patient tolerated procedure well Post-Debridement Measurements and Additional Note: Post-Debridement Measurements/Treatment WC - Nurse 1 - General Ulcer Assessment Start: 05/17/23 08:37 Freq: Status: Active Protocol: RADHA.LOWVERONICA Activity Type Activity Date Activity User E-sign Co-sign Detail Recorded Client Recorded Date Recorded By Document 05/17/23 08:40 KW Desktop 05/17/23 08:47 KW 05/17/23 08:40 - Today's Visit Information Type of service Follow-up Visit (Physician/CLIENT RESOLUTION SPECIALIST ) Arrival Mode Ambulatory Patient Identification Verified (Name & Yes ) Height and Weight Body Mass Index (BMI) 41.8 BMI Classification Obese Vital Signs Pulse Location Monitor Respiratory Rate (12-18) 18 Respiratory rate source Observation Oxygen Delivery Method Room Air History Since Last Visit- (Skip if this is Patient's initial visit) Have you changed medications since your No last visit? Any new allergies or adverse reactions No Had a fall/change in ADL's that may No increase risk of falls Signs or symptoms of abuse and/or No neglect since last visit Have you been in the hospital since your No last visit? Has dressing in place as prescribed Yes Has compression in place as prescribed No Has offloadiing in place as prescribed Yes Experienced any changes in pain level or No management Left Footwear Regular Shoe Right Footwear Removable Cast Walker/Walking Boot Pain Scale: 0-10 Numeric Is Patient Pain Free? Yes - Nurse 1 - General Ulcer Measurement Start: 05/17/23 08:37 Freq: Status: Active Protocol: Activity Type Activity Date Activity User E-sign Co-sign Detail Recorded Client Recorded Date Recorded By Document 05/17/23 08:40 Desktop 05/17/23 08:47 05/17/23 08:40 Wound Center Nurse 1 #1 right plantar foot -Current Size (cm) - Length 0.5 -Current Size (cm) - Width 0.3 -Current Size (cm) - Depth 0.2 -Total Square Cm 0.15 -Exudate Amt Small -Exudate Type Serosanguineous -Wound Margin Thickened -Granulation Amt Small (1-33%) -Granulation Quality Red -Necrosis Amt Small (1-33%) -Necrotic Tissue Type Adherent Slough -Texture (Kelsie-wound Skin Appearance) Assessed,Callus -Moisture (Kelsie-wound Skin Appearance) Assessed,Dry/ Scaly -Color (Kelsie-wound Skin Appearance) Assessed -Temperature (Kelsie-wound Skin No Abnormality Appearance) (Pt Warm) -Ulcer Cleansing Soap and Water -Anesthetic Used 5% Lidocaine Gel Assessment/Plan Assessment/Plan (1) Gastrocnemius equinus of right lower extremity: CODE(S): M21.861 - Other specified acquired deformities of right lower leg (2) Non-pressure chronic ulcer of other part of right foot with fat layer exposed: CODE(S): L97.512 - Non-pressure chronic ulcer of other part of right foot with fat layer exposed (3) Acquired hallux limitus of right foot: CODE(S): M20.5X1 - Other deformities of toe(s) (acquired), right foot (4) Hallux malleus of right foot: CODE(S): M20.31 - Hallux varus (acquired), right foot (5) Type 2 diabetes mellitus with foot ulcer: CODE(S): E11.621 - Type 2 diabetes mellitus with foot ulcer; L97.509 - Non-pressure chronic ulcer of other part of unspecified foot with unspecified severity (6) Diabetes mellitus with diabetic polyneuropathy: CODE(S): E11.42 - Type 2 diabetes mellitus with diabetic polyneuropathy (7) Diabetic foot ulcer associated with diabetes mellitus due to underlying condition: CODE(S): E08.621 - Diabetes mellitus due to underlying condition with foot ulcer; L97.509 - Non-pressure chronic ulcer of other part of unspecified foot with unspecified severity QUALIFIERS: Diabetic foot ulcer location: toe Laterality: right Non-pressure ulcer stage: with fat layer exposed Qualified Code(s): E08.621 - Diabetes mellitus due to underlying condition with foot ulcer; L97.512 - Non-pressure chronic ulcer of other part of right foot with fat layer exposed (8) Peripheral neuropathy: CODE(S): G62.9 - Polyneuropathy, unspecified (9) Hyperlipidemia: CODE(S): E78.5 - Hyperlipidemia, unspecified (10) Hypertension: CODE(S): I10 - Essential (primary) hypertension (11) Morbid obesity with BMI of 40.0-44.9, adult: CODE(S): E66.01 - Morbid (severe) obesity due to excess calories; Z68.41 - Body mass index [BMI] 40.0-44.9, adult PLAN: Plan Patient seen and evaluated. Patient was non-weight bearing in CAM boot with plantar offloading padding and knee scooter today I have reviewed the LEAS performed 01/17/2023 demonstrating: Left foot triphasic DP and PT on Doppler; Indices left foot PT- 1.05. DP 1.03, Digit 0.91; right foot triphasic DP and PT on Doppler; Indices foot PT 1.10, DP 1.16, digit noncompressible. PVR diminished at ankle and digit on left with noncompressible digit right foot. Impression no evidence of significant occlusive arterial disease. Reviewed diagnostic data from 01/17/2023 demonstrating WBC of 8.7 Radiographic imaging obtained 01/17/2023 demonstrating no evidence of osteomyelitis. I have reviewed this imaging and concur with the radiographic read. Updated radiograph of the right foot ordered 03/29/2023, radiograph demonstrates no signs of osteomyelitis. I have reviewed her culture results which were obtained 01/17/2023 demonstrating: Providencia rettgeri, Staph aureus, Stap agalactaie, and Kocuria kristinae. She was prescribed Augmentin [address] Omar MD. 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 She did pick up truck driver antibiotic and has completed this antibiotic course. Ulceration underwent debridement as noted in the clinical panel above. Ulcerative site demonstrates healthy granular base with surrounding hyperkeratosis. No signs of infection. Ulceration measures 0.9 cm x 0.4 cm x 0.1 cm. Katrina applied to ulcerative base and dressed with dry sterile dressing. She is to change dressing daily. Ulceration does demonstrate reduction in size versus previous visit. Following debridement cultures were obtained 03/01/23 due to her continued significant drainage. She was empirically started on oral doxycycline 100 mg p.o. twice daily x14 days and oral ciprofloxacin 500 mg p.o. twice daily x14 days. She states that she picked up oral abx and started on 03/08/23. Culture results demonstrate PsA, Providencia rettgeri, corynebacterium jeikeium, Staphylococcus cohnii urealyti, and anaerobic cocci. 03/22/2023 she completed antibiotic course and due to patient leaving town antibiotic course was extended. She will finished oral abx 04/05/23. She was instructed to stay off feet as much as possible to continue to aid in pressure reduction to the ulcerative site. Rx for knee scooter was written 03/29/23. She states she did get the knee scooter is using this to remain non-weight bearing to the right foot. Reminded her she is to remain nonweightbearing in the CAM boot for offloading with knee scooter assistance. Stressed importance of continuing knee scooter today. She was instructed to continue offloading in CAM boot for the right lower extremity with plantar offloading padding for first metatarsal head. She was instructed to remain in the CAM boot at all times and not to wear flip-flops. She may remove the boot for shower purposes and sleeping. She voices understanding of this. Discussed that pressure reduction to the site is essential for her healing status. Discussed proper diabetic diet to maintain tight glycemic control. Last A1c 09/2022 was 7.0%. Discussed continued diet and exercise along with lifestyle modification/weight loss to aid in healthy lifestyle. Discussed importance of daily foot checks. Discussed adequate protein intake to aid in wound healing. She may take Jeremy supplementation to aid in wound healing. Discussed being diabetic she is never to go barefoot and should wear closed toed shoes at all times. Discussed with her socks is considered barefoot. Encouraged shoe gear to be worn at all times. She voices understanding of this. Recommend diabetic shoes with plantar offloading padding once ulceration has healed. Discussed signs and symptoms of infection. Discussed if she notices redness about the ulcerative site that moves to the top of the foot and up the foot, purulent drainage from the wound site, increasing foul odor, or if she experiences fever greater than 101 degree, nausea, vomiting, chills that these are signs of a progressing infection and she should report to the ED for IV antibiotics. She voices understanding of this today. The following work up and care recommendations were made: Dressing: Katrina and dry sterile dressing. Change daily Wash: Soap and water Tissue growth optimization: Katrina Offload: CAM boot with plantar offloading padding. Remain nonweightbearing to right lower extremity with assistance of knee scooter. Vascular: Palpable pedal pulses bilateral. LEAS obtained and reviewed from 01/17/2023 demonstrating no significant arterial occlusive disease. She is noted to have mild arterial disease of the popliteal/SFA bilateral. On Doppler DP and PT are triphasic bilateral. Edema: No edema noted Infection: No signs of infection Pain: May take [id number] Tylenol for discomfort Host factors: DM type II with peripheral polyneuropathy, hallux limitus right foot, hallux malleus right foot, morbid obesity, equinus deformity all complicated healing potential I answered all the patient's questions. To return to the wound healing center in 1 week or call sooner if the patient has any questions or concerns.
[2023-05-24 08:52] VITALS: BP 185/85; PULSE 78; RESP 18; TEMP 35.8; BMI 41.8
--- NOTE | 2023-05-24 09:54 | PCM.WC.PN ---
History of Present Illness Date of Service: 05/24/23 Chief Complaint: Diabetic foot ulceration, right metatarsal-phalangeal joint, plantar surface History of Wound: This is a 58-year-old, morbidly-obese, diabetic female who presents with a large ulceration on the right great toe. The ulceration is located at the right first metatarsophalangeal joint, on the plantar surface. It has been present for approximately 4 months. According to the patient, it originated as a callus, and she ripped off the skin. She has been using Watkin's salve topically. The patient does not see a event designer on a regular basis. Her BMI is 41.8. She denies a history of smoking. She also denies a history of myocardial infarction, congestive heart failure, cerebrovascular accident, pulmonary disease, renal disease, and thyroid disease. Most recent hemoglobin A1c was 7.0 in September,. Laboratory studies obtained recently, dated January 03, 2023, are as follows: White blood count 8.7, hemoglobin 13.5, hematocrit 41.4, platelets 308,000, sodium 138, potassium 4.0, chloride 101, BUN 14, creatinine 0.65, glucose 140, calcium 9.3, bilirubin 0.40, AST 19, ALT 24, alkaline phosphatase 107, protein 7.8, albumin 3.3. Subjective Subjective This is a 58-year-old diabetic female who presents to the wound care center today for follow-up of a plantar first metatarsal head ulceration of the right foot. She is changing dressings daily with Katrina. She has continued to offload in the CAM boot with plantar offloading padding and remaining nonweightbearing to the right lower extremity with assistance of knee scooter. She states that the tape she was using for dressing changes has caused a small skin tear on the bottom of her foot. She denies any constitutional symptoms. She denies further complaints. Objective Data Objective Data Vital Signs: Vital Signs Temp Pulse Resp BP O2 Del Method 96.5 F L 78 18 185/85 H Room Air 05/24/23 08:52 05/24/23 08:52 05/24/23 08:52 05/24/23 08:52 05/17/23 08:40 Oxygen Delivery Method Room Air Weight: 110.677 kg Body Mass Index (BMI) 41.8 Physical Exam Const alert, oriented x3, no apparent distress and well nourished General Appearance: cooperative HEENT normocephalic Eyes General Eye: normal appearance of both eyes Neck General: normal visual inspection Lymph Lymphatic: no lymphadenopathy noted and no lymphedema noted Resp normal respiratory effort Cardio regular rate and regular rhythm Extremity normal capillary refill, no joint enlargement, no calf tenderness and no pedal edema Extremity Narrative: DP and PT pulses palpable bilateral. Capillary fill time to the digits less than 5 seconds bilateral. Hair growth diminished to the digits bilateral. Dermatological: Skin appears well-hydrated with normal turgor. Hyperkeratotic tissue Sub first metatarsal head of the left foot with no evidence of open wound. There is an ulceration noted to the plantar aspect of the first metatarsal head of the right foot with surrounding hyperkeratotic tissue. Wound bed demonstrates granular tissue. No purulent drainage, no malodor, no palpable fluctuance/bogginess, no visible abscess formation, no lymphangitic streaking. Ulceration does not probe to bone. New superficial skin tear Sub fifth digit secondary to tape. Musculoskeletal: Muscle strength 5 of 5 age-appropriate. She does demonstrate decreased range of motion of the first metatarsophalangeal joint bilateral without pain or crepitus. Decreased range of motion of the ankle joint in dorsiflexion with the knee extended without pain or crepitus bilateral. Hammertoe deformity of the right hallux. No pain to palpation about the ulcerative site plantar first metatarsal head right foot Skin no rashes or lesions noted, skin turgor normal and no jaundice Neuro moves all extremities Neuro Narrative: Decreased protective sensation secondary to diabetic peripheral polyneuropathy Debridement Note Debridement Note Wound debrided: Sub first metatarsal head Laterality: Right Wound Grade/Stage: Nichols stage I Type of Debridement: Excisional debridement Anesthesia Used: 5% Lidocaine Gel Depth: Down to and including healthy tissue and in the subcutaneous layer Percentage of wound debrided: 100 Instrument Used: #15 blade Tissue Removed: Fibrous, devitalized subcutaneous, biofilm, slough Severity: Fat Layer Exposed Amount of bleeding with debridement: Mild Bleeding Controlled with: Compression and gauze Patient tolerated procedure: Patient tolerated procedure well Post-Debridement Measurements and Additional Note: Post-Debridement Measurements/Treatment RADHA - Nurse 1 - General Ulcer Assessment Start: 05/17/23 08:37 Freq: Status: Active Protocol: JAXSON Activity Type Activity Date Activity User E-sign Co-sign Detail Recorded Client Recorded Date Recorded By Document 05/17/23 08:40 KW Desktop 05/17/23 08:47 KW Document 05/24/23 08:52 NRL Desktop 05/24/23 08:58 NRL 05/17/23 05/24/23 08:40 08:52 WC - Today's Visit Information Type of service Follow-up Visit Follow-up Visit (Physician/HIGH SCHOOL GUIDANCE COUNSELOR (Physician/HIGH SCHOOL GUIDANCE COUNSELOR ) ) Arrival Mode Ambulatory Ambulatory Patient Identification Verified (Name & Yes Yes ) Height and Weight Body Mass Index (BMI) 41.8 41.8 BMI Classification Obese Obese Vital Signs Temperature (97.8 F-99.1 F) 96.5 F L Temperature Source Temporal Pulse Rate (60-100) 78 Pulse Location Monitor Monitor Respiratory Rate (12-18) 18 18 Respiratory rate source Observation Observation Oxygen Delivery Method Room Air Blood Pressure (90/60-120/80) 185/85 H Blood Pressure Mean (mm Hg) 118 Source Monitor Position Sitting Blood Pressure Location Left Arm History Since Last Visit- (Skip if this is Patient's initial visit) Have you changed medications since your No No last visit? Any new allergies or adverse reactions No No Had a fall/change in ADL's that may No No increase risk of falls Signs or symptoms of abuse and/or No neglect since last visit Have you been in the hospital since your No No last visit? Has dressing in place as prescribed Yes Yes Has compression in place as prescribed No N/A Has offloadiing in place as prescribed Yes Yes Experienced any changes in pain level or No No management Left Footwear Regular Shoe Regular Shoe Right Footwear Removable Cast Removable Cast Walker/Walking Walker/Walking Boot Boot Pain Scale: 0-10 Numeric Is Patient Pain Free? Yes Yes - Nurse 1 - General Ulcer Measurement Start: 05/17/23 08:37 Freq: Status: Active Protocol: Activity Type Activity Date Activity User E-sign Co-sign Detail Recorded Client Recorded Date Recorded By Document 05/17/23 08:40 KW Desktop 05/17/23 08:47 KW Document 05/24/23 08:52 NRL Desktop 05/24/23 08:58 NRL Edit Result 05/24/23 08:52 NRL (1) Desktop 11/16/23 09:40 NRL (1) Right lateral plantar - Combined with other wound => No - Current Size (cm) - Length => 0.5 - Current Size (cm) - Width => 1.9 - Current Size (cm) - Depth => 0.1 - Total Square Cm => 0.95 - Epithelialization => Small 1-33% - Undermining/Tunneling => No - Circular Undermining => No - Exudate Amt => None Present - Wound Margin => Distinct, Outline => Attached - Granulation Amt => Small (1-33%) - Necrosis Amt => None Present (0%) - Texture (Kelsie-wound Skin Appearance) => Assessed - Moisture (Kelsie-wound Skin Appearance) => Assessed - Color (Kelsie-wound Skin Appearance) => Assessed - Temperature (Kelsie-wound Skin => No Abnormality (Pt Appearance) => Warm) - Tenderness on Palpation (Kelsie-wound => No Skin Appearance) - Ulcer Cleansing => Wound Cleanser - Foul Odor after Cleansing => No - Anesthetic Used => 5% Lidocaine Gel 05/17/23 05/24/23 08:40 08:52 Wound Center Nurse 1 Right lateral plantar -Combined with other wound No -Current Size (cm) - Length 0.5 -Current Size (cm) - Width 1.9 -Current Size (cm) - Depth 0.1 -Total Square Cm 0.95 -Epithelialization Small 1-33% -Undermining/Tunneling No -Circular Undermining No -Exudate Amt None Present -Wound Margin Distinct, Outline Attached -Granulation Amt Small (1-33%) -Necrosis Amt None Present (0 %) -Texture (Kelsie-wound Skin Appearance) Assessed -Moisture (Kelsie-wound Skin Appearance) Assessed -Color (Kelsie-wound Skin Appearance) Assessed -Temperature (Kelsie-wound Skin No Abnormality Appearance) (Pt Warm) -Tenderness on Palpation (Kelsie-wound No Skin Appearance) -Ulcer Cleansing Wound Cleanser -Foul Odor after Cleansing No -Anesthetic Used 5% Lidocaine Gel #1 right plantar foot -Combined with other wound No -Current Size (cm) - Length 0.5 -Current Size (cm) - Width 0.3 -Current Size (cm) - Depth 0.2 -Total Square Cm 0.15 -Epithelialization Small 1-33% -Tunneling No -Undermining/Tunneling No -Exudate Amt Small Medium -Exudate Type Serosanguineous Serosanguineous -Wound Margin Thickened Distinct, Outline Attached -Granulation Amt Small (1-33%) Small (1-33%) -Granulation Quality Red [place] -Slough/Fibrin Yes -Necrosis Amt Small (1-33%) Small (1-33%) -Necrotic Tissue Type Adherent Slough Adherent Slough -Texture (Kelsie-wound Skin Appearance) Assessed,Callus Assessed -Moisture (Kelsie-wound Skin Appearance) Assessed,Dry/ Assessed Scaly -Color (Kelsie-wound Skin Appearance) Assessed Assessed -Temperature (Kelsie-wound Skin No Abnormality No Abnormality Appearance) (Pt Warm) (Pt Warm) -Tenderness on Palpation (Kelsie-wound No Skin Appearance) -Ulcer Cleansing Soap and Water Wound Cleanser -Foul Odor after Cleansing No -Anesthetic Used 5% Lidocaine 5% Lidocaine Gel Gel Lower Limb Edema Present NA WC - Nurse 2 - General Ulcer CM Notes Start: 05/17/23 08:37 Freq: Status: Active Protocol: Activity Type Activity Date Activity User E-sign Co-sign Detail Recorded Client Recorded Date Recorded By Document 05/17/23 16:44 PL [id number] 05/17/23 16:45 PL 05/17/23 16:44 Wound Center Nurse 2 #1 right plantar foot -Time 09:12 -Correct Patient Yes -Correct Side, Site, Position Yes -Correct Procedure Yes -Procedure Performed Yes -Type of Procedure Debridement -Clinical Debridement Subcutaneous -Tissue Removed Subcutaneous -Post Debridement (cm) - Length 0.9 -Post Debridement (cm) - Width 0.4 -Post Debridement (cm) - Depth 0.1 -Total Square (Post) (cm) 0.36 -Area of Debridement (cm) - Length 0.9 -Area of Debridement (cm) - Width 0.4 -Total Square (Area) (cm) 0.36 -Tunneling No -Undermining/Tunneling No -Circular Undermining No -Wound/Ulcer Outcome Not Healed -Ulcer Cleansing Rinsed/ Irrigated with Saline -Foul Odor after Cleansing No -Bioengineered Tissue No -Bleeding Controlled with Pressure -Treatment Response Procedure Tolerated Well -Debridement - Subq, 1st 20sq cm Yes Pain Scale: 0-10 Numeric Is Patient Pain Free? Yes WC - Nurse 3 - General Ulcer D/C NN Start: 05/17/23 08:37 Freq: Status: Active Protocol: Activity Type Activity Date Activity User E-sign Co-sign Detail Recorded Client Recorded Date Recorded By Document 05/17/23 09:42 DL Desktop 05/17/23 09:43 DL Document 05/24/23 09:41 NRL Desktop 05/24/23 09:43 NRL 05/17/23 05/24/23 09:42 09:41 Wound Care Center Nurse 3 #1 right plantar foot -Ulcer Cleansing Rinsed/ Wound Cleanser Irrigated with Saline -Foul Odor after Cleansing No No -Primary Dressing Applied Promogran Promogran Katrina Matter Katrina Matter -Primary Dressing Covered/Secured with Dry Gauze & Dry Gauze & Roll Gauze, Roll Gauze Secured with Tape -Promogran Katrina Matter 1 1 Treatment Response Procedure Tolerated Well Pain Scale: 0-10 Numeric Is Patient Pain Free? Yes Yes WC - Visit Discharge Discharge Condition Stable Stable Ambulatory Status Ambulatory, Ambulatory Walker Transportation Private Auto Private Auto Accompanied by Self Medication Reconcilliation completed & Yes provided to patient/care provider Clinical Summary of Care Provided Yes Notes: Knee Roller Assessment/Plan Assessment/Plan (1) Gastrocnemius equinus of right lower extremity: CODE(S): M21.861 - Other specified acquired deformities of right lower leg (2) Non-pressure chronic ulcer of other part of right foot with fat layer exposed: CODE(S): L97.512 - Non-pressure chronic ulcer of other part of right foot with fat layer exposed (3) Acquired hallux limitus of right foot: CODE(S): M20.5X1 - Other deformities of toe(s) (acquired), right foot (4) Hallux malleus of right foot: CODE(S): M20.31 - Hallux varus (acquired), right foot (5) Type 2 diabetes mellitus with foot ulcer: CODE(S): E11.621 - Type 2 diabetes mellitus with foot ulcer; L97.509 - Non-pressure chronic ulcer of other part of unspecified foot with unspecified severity (6) Diabetes mellitus with diabetic polyneuropathy: CODE(S): E11.42 - Type 2 diabetes mellitus with diabetic polyneuropathy (7) Diabetic foot ulcer associated with diabetes mellitus due to underlying condition: CODE(S): E08.621 - Diabetes mellitus due to underlying condition with foot ulcer; L97.509 - Non-pressure chronic ulcer of other part of unspecified foot with unspecified severity QUALIFIERS: Diabetic foot ulcer location: toe Laterality: right Non-pressure ulcer stage: with fat layer exposed Qualified Code(s): E08.621 - Diabetes mellitus due to underlying condition with foot ulcer; L97.512 - Non-pressure chronic ulcer of other part of right foot with fat layer exposed (8) Peripheral neuropathy: CODE(S): G62.9 - Polyneuropathy, unspecified (9) Hyperlipidemia: CODE(S): E78.5 - Hyperlipidemia, unspecified (10) Hypertension: CODE(S): I10 - Essential (primary) hypertension (11) Morbid obesity with BMI of 40.0-44.9, adult: CODE(S): E66.01 - Morbid (severe) obesity due to excess calories; Z68.41 - Body mass index [BMI] 40.0-44.9, adult PLAN: Plan Patient seen and evaluated. Patient was non-weight bearing in CAM boot with plantar offloading padding and knee scooter today I have reviewed the LEAS performed 01/17/2023 demonstrating: Left foot triphasic DP and PT on Doppler; Indices left foot PT- 1.05. DP 1.03, Digit 0.91; right foot triphasic DP and PT on Doppler; Indices foot PT 1.10, DP 1.16, digit noncompressible. PVR diminished at ankle and digit on left with noncompressible digit right foot. Impression no evidence of significant occlusive arterial disease. Reviewed diagnostic data from 01/17/2023 demonstrating WBC of 8.7 Radiographic imaging obtained 01/17/2023 demonstrating no evidence of osteomyelitis. I have reviewed this imaging and concur with the radiographic read. Updated radiograph of the right foot ordered 03/29/2023, radiograph demonstrates no signs of osteomyelitis. I have reviewed her culture results which were obtained 01/17/2023 demonstrating: Providencia rettgeri, Staph aureus, Stap agalactaie, and Kocuria kristinae. She was prescribed Augmentin [address] Omar MD. Patient however states she never realized prescription was phoned in for her to case picker and had not been taking the antibiotic. She did case picker antibiotic and has completed this antibiotic course. Ulceration underwent debridement as noted in the clinical panel above. Ulcerative site demonstrates healthy granular base with surrounding hyperkeratosis. No signs of infection. Ulceration measures 0.6 cm x 0.3 cm x 0.1 cm. Katrina applied to ulcerative base and dressed with dry sterile dressing. She is to change dressing daily. Ulceration does demonstrate reduction in size versus previous visit. Following debridement cultures were obtained 03/01/23 due to her continued significant drainage. She was empirically started on oral doxycycline 100 mg p.o. twice daily x14 days and oral ciprofloxacin 500 mg p.o. twice daily x14 days. She states that she picked up oral abx and started on 03/08/23. Culture results demonstrate PsA, Providencia rettgeri, corynebacterium jeikeium, Staphylococcus cohnii urealyti, and anaerobic cocci. 03/22/2023 she completed antibiotic course and due to patient leaving town antibiotic course was extended. She will finished oral abx 04/05/23. She was instructed to stay off feet as much as possible to continue to aid in pressure reduction to the ulcerative site. Rx for knee scooter was written 03/29/23. She states she did get the knee scooter is using this to remain non-weight bearing to the right foot. Reminded her she is to remain nonweightbearing in the CAM boot for offloading with knee scooter assistance. Stressed importance of continuing knee scooter today. She was instructed to continue offloading in CAM boot for the right lower extremity with plantar offloading padding for first metatarsal head. She was instructed to remain in the CAM boot at all times and not to wear flip-flops. She may remove the boot for shower purposes and sleeping. She voices understanding of this. Discussed that pressure reduction to the site is essential for her healing status. Discussed proper diabetic diet to maintain tight glycemic control. Last A1c 09/2022 was 7.0%. Discussed continued diet and exercise along with lifestyle modification/weight loss to aid in healthy lifestyle. Discussed importance of daily foot checks. Discussed adequate protein intake to aid in wound healing. She may take Jeremy supplementation to aid in wound healing. Discussed being diabetic she is never to go barefoot and should wear closed toed shoes at all times. Discussed with her socks is considered barefoot. Encouraged shoe gear to be worn at all times. She voices understanding of this. Recommend diabetic shoes with plantar offloading padding once ulceration has healed. Discussed signs and symptoms of infection. Discussed if she notices redness about the ulcerative site that moves to the top of the foot and up the foot, purulent drainage from the wound site, increasing foul odor, or if she experiences fever greater than 101 degree, nausea, vomiting, chills that these are signs of a progressing infection and she should report to the ED for IV antibiotics. She voices understanding of this today. The following work up and care recommendations were made: Dressing: Katrina and dry sterile dressing. Change daily Wash: Soap and water Tissue growth optimization: Katrina Offload: CAM boot with plantar offloading padding. Remain nonweightbearing to right lower extremity with assistance of knee scooter. Vascular: Palpable pedal pulses bilateral. LEAS obtained and reviewed from 01/17/2023 demonstrating no significant arterial occlusive disease. She is noted to have mild arterial disease of the popliteal/SFA bilateral. On Doppler DP and PT are triphasic bilateral. Edema: No edema noted Infection: No signs of infection Pain: May take eyst-ran-rasqibo Tylenol for discomfort Host factors: DM type II with peripheral polyneuropathy, hallux limitus right foot, hallux malleus right foot, morbid obesity, equinus deformity all complicated healing potential I answered all the patient's questions. To return to the wound healing center in 2 weeks or call sooner if the patient has any questions or concerns.
[2023-06-07 10:08] VITALS: RESP 18; TEMP 36.1; BMI 41.8
--- NOTE | 2023-06-07 13:23 | PCM.WC.PN ---
History of Present Illness Date of Service: 06/07/23 Chief Complaint: Diabetic foot ulceration, right metatarsal-phalangeal joint, plantar surface History of Wound: This is a 58-year-old, morbidly-obese, diabetic female who presents with a large ulceration on the right great toe. The ulceration is located at the right first metatarsophalangeal joint, on the plantar surface. It has been present for approximately 4 months. According to the patient, it originated as a callus, and she ripped off the skin. She has been using Watkin's salve topically. The patient does not see a group leader semiconductor testing on a regular basis. Her BMI is 41.8. She denies a history of smoking. She also denies a history of myocardial infarction, congestive heart failure, cerebrovascular accident, pulmonary disease, renal disease, and thyroid disease. Most recent hemoglobin A1c was 7.0 in September,. Laboratory studies obtained recently, dated January 03, 2023, are as follows: White blood count 8.7, hemoglobin 13.5, hematocrit 41.4, platelets 308,000, sodium 138, potassium 4.0, chloride 101, BUN 14, creatinine 0.65, glucose 140, calcium 9.3, bilirubin 0.40, AST 19, ALT 24, alkaline phosphatase 107, protein 7.8, albumin 3.3. Subjective Subjective This is a 58-year-old diabetic female who presents to the wound care center today for follow-up of a plantar first metatarsal head ulceration of the right foot. She is changing dressings daily with Katrina. She has continued to offload in the CAM boot with plantar offloading padding and remaining nonweightbearing to the right lower extremity with assistance of knee scooter. She denies any constitutional symptoms. She denies further complaints. Objective Data Objective Data Vital Signs: Vital Signs Temp Pulse Resp BP O2 Del Method 96.9 F L 78 18 185/85 H Room Air 06/07/23 10:08 05/24/23 08:52 06/07/23 10:08 05/24/23 08:52 06/07/23 10:08 Oxygen Delivery Method Room Air Weight: 110.677 kg Body Mass Index (BMI) 41.8 Physical Exam Const alert, oriented x3, no apparent distress and well nourished General Appearance: cooperative HEENT normocephalic Eyes General Eye: normal appearance of both eyes Neck General: normal visual inspection Lymph Lymphatic: no lymphadenopathy noted and no lymphedema noted Resp normal respiratory effort Cardio regular rate and regular rhythm Extremity normal capillary refill, no joint enlargement, no calf tenderness and no pedal edema Extremity Narrative: DP and PT pulses palpable bilateral. Capillary fill time to the digits less than 5 seconds bilateral. Hair growth diminished to the digits bilateral. Dermatological: Skin appears well-hydrated with normal turgor. Hyperkeratotic tissue Sub first metatarsal head of the left foot with no evidence of open wound. There is an ulceration noted to the plantar aspect of the first metatarsal head of the right foot with surrounding hyperkeratotic tissue. Wound bed demonstrates granular tissue. No purulent drainage, no malodor, no palpable fluctuance/bogginess, no visible abscess formation, no lymphangitic streaking. Ulceration does not probe to bone. Superficial skin tear Sub fifth digit secondary to tape has healed. Musculoskeletal: Muscle strength 5 of 5 age-appropriate. She does demonstrate decreased range of motion of the first metatarsophalangeal joint bilateral without pain or crepitus. Decreased range of motion of the ankle joint in dorsiflexion with the knee extended without pain or crepitus bilateral. Hammertoe deformity of the right hallux. No pain to palpation about the ulcerative site plantar first metatarsal head right foot Skin no rashes or lesions noted, skin turgor normal and no jaundice Neuro moves all extremities Neuro Narrative: Decreased protective sensation secondary to diabetic peripheral polyneuropathy Debridement Note Debridement Note Wound debrided: Sub first metatarsal head Laterality: Right Wound Grade/Stage: Nichols stage I Type of Debridement: Excisional debridement Anesthesia Used: 5% Lidocaine Gel Depth: Down to and including healthy tissue and in the subcutaneous layer Percentage of wound debrided: 100 Instrument Used: #15 blade Tissue Removed: Fibrous, devitalized subcutaneous, biofilm, slough Severity: Fat Layer Exposed Amount of bleeding with debridement: Mild Bleeding Controlled with: Compression and gauze Patient tolerated procedure: Patient tolerated procedure well Post-Debridement Measurements and Additional Note: Post-Debridement Measurements/Treatment RADHA - Nurse 1 - General Ulcer Assessment Start: 05/17/23 08:37 Freq: Status: Active Protocol: RADHA.LOWVERONICA Activity Type Activity Date Activity User E-sign Co-sign Detail Recorded Client Recorded Date Recorded By Document 05/17/23 08:40 KW Desktop 05/17/23 08:47 KW Document 05/24/23 08:52 NRL Desktop 05/24/23 08:58 NRL Document 06/07/23 10:08 KW Desktop 06/07/23 10:15 KW 05/17/23 05/24/23 06/07/23 08:40 08:52 10:08 - Today's Visit Information Type of service Follow-up Visit Follow-up Visit Follow-up Visit (Physician/TOURIST ADVISER (Physician/TOURIST ADVISER (Physician/TOURIST ADVISER ) ) ) Arrival Mode Ambulatory Ambulatory Ambulatory Patient Identification Verified (Name & Yes Yes Yes ) Height and Weight Body Mass Index (BMI) 41.8 41.8 41.8 BMI Classification Obese Obese Obese Vital Signs Temperature (97.8 F-99.1 F) 96.5 F L 96.9 F L Temperature Source Temporal Temporal Pulse Rate (60-100) 78 Pulse Location Monitor Monitor Respiratory Rate (12-18) 18 18 18 Respiratory rate source Observation Observation Observation Oxygen Delivery Method Room Air Room Air Blood Pressure (90/60-120/80) 185/85 H Blood Pressure Mean (mm Hg) 118 Source Monitor Position Sitting Blood Pressure Location Left Arm History Since Last Visit- (Skip if this is Patient's initial visit) Have you changed medications since your No No No last visit? Any new allergies or adverse reactions No No No Had a fall/change in ADL's that may No No No increase risk of falls Signs or symptoms of abuse and/or No No neglect since last visit Have you been in the hospital since your No No No last visit? Has dressing in place as prescribed Yes Yes Yes Has compression in place as prescribed No N/A No Has offloadiing in place as prescribed Yes Yes Yes Experienced any changes in pain level or No No No management Left Footwear Regular Shoe Regular Shoe Regular Shoe Right Footwear Removable Cast Removable Cast Removable Cast Walker/Walking Walker/Walking Walker/Walking Boot Boot Boot Pain Scale: 0-10 Numeric Is Patient Pain Free? Yes Yes Yes - Nurse 1 - General Ulcer Measurement Start: 05/17/23 08:37 Freq: Status: Active Protocol: Activity Type Activity Date Activity User E-sign Co-sign Detail Recorded Client Recorded Date Recorded By Document 05/17/23 08:40 KW Desktop 05/17/23 08:47 KW Document 05/24/23 08:52 NRL Desktop 05/24/23 08:58 NRL Edit Result 05/24/23 08:52 NRL (1) Desktop 05/24/23 09:40 NRL Document 06/07/23 10:08 KW Desktop 06/07/23 10:15 KW (1) # 2 Right lateral plantar - Combined with other wound => No - Current Size (cm) - Length => 0.5 - Current Size (cm) - Width => 1.9 - Current Size (cm) - Depth => 0.1 - Total Square Cm => 0.95 - Epithelialization => Small 1-33% - Undermining/Tunneling => No - Circular Undermining => No - Exudate Amt => None Present - Wound Margin => Distinct, Outline => Attached - Granulation Amt => Small (1-33%) - Necrosis Amt => None Present (0%) - Texture (Kelsie-wound Skin Appearance) => Assessed - Moisture (Kelsie-wound Skin Appearance) => Assessed - Color (Kelsie-wound Skin Appearance) => Assessed - Temperature (Kelsie-wound Skin => No Abnormality (Pt Appearance) => Warm) - Tenderness on Palpation (Kelsie-wound => No Skin Appearance) - Ulcer Cleansing => Wound Cleanser - Foul Odor after Cleansing => No - Anesthetic Used => 5% Lidocaine Gel 05/17/23 05/24/23 06/07/23 08:40 08:52 10:08 Wound Center Nurse 1 # 2 Right lateral plantar -Combined with other wound No -Current Size (cm) - Length 0.5 0.1 -Current Size (cm) - Width 1.9 0.1 -Current Size (cm) - Depth 0.1 0.1 -Total Square Cm 0.95 0.01 -Epithelialization Small 1-33% -Undermining/Tunneling No No -Circular Undermining No -Exudate Amt None Present -Wound Margin Distinct, Outline Attached -Granulation Amt Small (1-33%) Small (1-33%) -Granulation Quality Red -Necrosis Amt None Present (0 %) -Texture (Kelsie-wound Skin Appearance) Assessed -Moisture (Kelsie-wound Skin Appearance) Assessed -Color (Kelsie-wound Skin Appearance) Assessed -Temperature (Kelsie-wound Skin No Abnormality No Abnormality Appearance) (Pt Warm) (Pt Warm) -Tenderness on Palpation (Kelsie-wound No Skin Appearance) -Ulcer Cleansing Wound Cleanser Soap and Water -Foul Odor after Cleansing No No -Anesthetic Used 5% Lidocaine 5% Lidocaine Gel Gel #1 right plantar foot -Combined with other wound No -Current Size (cm) - Length 0.5 0.7 -Current Size (cm) - Width 0.3 0.2 -Current Size (cm) - Depth 0.2 0.3 -Total Square Cm 0.15 0.14 -Epithelialization Small 1-33% -Tunneling No -Undermining/Tunneling No Yes -Undermining/Tunneling Starts (O'clock 9 ) -Undermining/Tunneling Ends (O'clock) 12 -Maximum Distance (cm) 0.5 -Exudate Amt Small Medium Small -Exudate Type Serosanguineous Serosanguineous Serosanguineous -Wound Margin Thickened Distinct, Distinct, Outline Outline Attached Attached -Granulation Amt Small (1-33%) Small (1-33%) Small (1-33%) -Granulation Quality Red [place] -Slough/Fibrin Yes -Necrosis Amt Small (1-33%) Small (1-33%) Small (1-33%) -Necrotic Tissue Type Adherent Slough Adherent Slough Adherent Slough -Texture (Kelsie-wound Skin Appearance) Assessed,Callus Assessed Assessed,Callus -Moisture (Kelsie-wound Skin Appearance) Assessed,Dry/ Assessed Assessed Scaly -Color (Kelsie-wound Skin Appearance) Assessed Assessed Assessed -Temperature (Kelsie-wound Skin No Abnormality No Abnormality No Abnormality Appearance) (Pt Warm) (Pt Warm) (Pt Warm) -Tenderness on Palpation (Kelsie-wound No Skin Appearance) -Ulcer Cleansing Soap and Water Wound Cleanser Soap and Water -Foul Odor after Cleansing No No -Anesthetic Used 5% Lidocaine 5% Lidocaine 5% Lidocaine Gel Gel Gel Lower Limb Edema Present NA WC - Nurse 2 - General Ulcer CM Notes Start: 05/17/23 08:37 Freq: Status: Active Protocol: Activity Type Activity Date Activity User E-sign Co-sign Detail Recorded Client Recorded Date Recorded By Document 05/17/23 16:44 PL [id number] 05/17/23 16:45 PL Document 05/24/23 16:14 PL [id number] 05/24/23 16:16 PL 05/17/23 05/24/23 16:44 16:14 Wound Center Nurse 2 # 2 Right lateral plantar -Time 09:23 -Correct Patient Yes -Correct Side, Site, Position Yes -Correct Procedure Yes -Procedure Performed Yes -Type of Procedure Debridement -Clinical Debridement Subcutaneous -Tissue Removed Subcutaneous -Post Debridement (cm) - Length 0.5 -Post Debridement (cm) - Width 1.9 -Post Debridement (cm) - Depth 0.1 -Total Square (Post) (cm) 0.95 -Area of Debridement (cm) - Length 0.5 -Area of Debridement (cm) - Width 1.9 -Total Square (Area) (cm) 0.95 -Tunneling No -Undermining/Tunneling No -Circular Undermining No -Wound/Ulcer Outcome Not Healed -Ulcer Cleansing Rinsed/ Irrigated with Saline -Foul Odor after Cleansing No -Bioengineered Tissue No -Bleeding Controlled with NA -Treatment Response Procedure Tolerated Well -Debridement - Subq, 1st 20sq cm No #1 right plantar foot -Time 09:12 09:23 -Correct Patient Yes Yes -Correct Side, Site, Position Yes Yes -Correct Procedure Yes Yes -Procedure Performed Yes Yes -Type of Procedure Debridement Debridement -Clinical Debridement Subcutaneous Subcutaneous -Tissue Removed Subcutaneous Subcutaneous -Post Debridement (cm) - Length 0.9 0.6 -Post Debridement (cm) - Width 0.4 0.3 -Post Debridement (cm) - Depth 0.1 0.1 -Total Square (Post) (cm) 0.36 0.18 -Area of Debridement (cm) - Length 0.9 0.6 -Area of Debridement (cm) - Width 0.4 0.3 -Total Square (Area) (cm) 0.36 0.18 -Tunneling No No -Undermining/Tunneling No No -Circular Undermining No No -Wound/Ulcer Outcome Not Healed Not Healed -Ulcer Cleansing Rinsed/ Rinsed/ Irrigated with Irrigated with Saline Saline -Foul Odor after Cleansing No No -Bioengineered Tissue No No -Bleeding Controlled with Pressure Pressure -Treatment Response Procedure Procedure Tolerated Well Tolerated Well -Debridement - Subq, 1st 20sq cm Yes Yes Pain Scale: 0-10 Numeric Is Patient Pain Free? Yes Yes WC - Nurse 3 - General Ulcer D/C NN Start: 11/09/23 08:37 Freq: Status: Active Protocol: Activity Type Activity Date Activity User E-sign Co-sign Detail Recorded Client Recorded Date Recorded By Document 05/17/23 09:42 DL Desktop 05/17/23 09:43 DL Document 05/24/23 09:41 NRL Desktop 05/24/23 09:43 NRL Document 06/07/23 10:48 KW Desktop 06/07/23 10:49 KW 05/17/23 05/24/23 06/07/23 09:42 09:41 10:48 Wound Care Center Nurse 3 #1 right plantar foot -Ulcer Cleansing Rinsed/ Wound Cleanser Irrigated with Saline -Foul Odor after Cleansing No No -Primary Dressing Applied Promogran Promogran Promogran Katrina Matter Katrina Matter Katrina Matter -Primary Dressing Covered/Secured with Dry Gauze & Dry Gauze & Dry Gauze & Roll Gauze, Roll Gauze Roll Gauze, Secured with Secured with Tape Tape -Promogran Katrina Matter 1 1 1 Treatment Response Procedure Tolerated Well Pain Scale: 0-10 Numeric Is Patient Pain Free? Yes Yes Yes WC - Visit Discharge Discharge Condition Stable Stable Stable Ambulatory Status Ambulatory, Ambulatory Ambulatory Walker Transportation Private Auto Private Auto Private Auto Accompanied by Self Medication Reconcilliation completed & Yes No provided to patient/care provider Clinical Summary of Care Provided Yes Yes Notes: Knee Roller Assessment/Plan Assessment/Plan (1) Gastrocnemius equinus of right lower extremity: CODE(S): M21.861 - Other specified acquired deformities of right lower leg (2) Non-pressure chronic ulcer of other part of right foot with fat layer exposed: CODE(S): L97.512 - Non-pressure chronic ulcer of other part of right foot with fat layer exposed (3) Acquired hallux limitus of right foot: CODE(S): M20.5X1 - Other deformities of toe(s) (acquired), right foot (4) Hallux malleus of right foot: CODE(S): M20.31 - Hallux varus (acquired), right foot (5) Type 2 diabetes mellitus with foot ulcer: CODE(S): E11.621 - Type 2 diabetes mellitus with foot ulcer; L97.509 - Non-pressure chronic ulcer of other part of unspecified foot with unspecified severity (6) Diabetes mellitus with diabetic polyneuropathy: CODE(S): E11.42 - Type 2 diabetes mellitus with diabetic polyneuropathy (7) Diabetic foot ulcer associated with diabetes mellitus due to underlying condition: CODE(S): E08.621 - Diabetes mellitus due to underlying condition with foot ulcer; L97.509 - Non-pressure chronic ulcer of other part of unspecified foot with unspecified severity QUALIFIERS: Diabetic foot ulcer location: toe Laterality: right Non-pressure ulcer stage: with fat layer exposed Qualified Code(s): E08.621 - Diabetes mellitus due to underlying condition with foot ulcer; L97.512 - Non-pressure chronic ulcer of other part of right foot with fat layer exposed (8) Peripheral neuropathy: CODE(S): G62.9 - Polyneuropathy, unspecified (9) Hyperlipidemia: CODE(S): E78.5 - Hyperlipidemia, unspecified (10) Hypertension: CODE(S): I10 - Essential (primary) hypertension (11) Morbid obesity with BMI of 40.0-44.9, adult: CODE(S): E66.01 - Morbid (severe) obesity due to excess calories; Z68.41 - Body mass index [BMI] 40.0-44.9, adult PLAN: Plan Patient seen and evaluated. Patient was non-weight bearing in CAM boot with plantar offloading padding and knee scooter today I have reviewed the LEAS performed 01/17/2023 demonstrating: Left foot triphasic DP and PT on Doppler; Indices left foot PT- 1.05. DP 1.03, Digit 0.91; right foot triphasic DP and PT on Doppler; Indices foot PT 1.10, DP 1.16, digit noncompressible. PVR diminished at ankle and digit on left with noncompressible digit right foot. Impression no evidence of significant occlusive arterial disease. Reviewed diagnostic data from 01/17/2023 demonstrating WBC of 8.7 Radiographic imaging obtained 01/17/2023 demonstrating no evidence of osteomyelitis. I have reviewed this imaging and concur with the radiographic read. Updated radiograph of the right foot ordered 03/29/2023, radiograph demonstrates no signs of osteomyelitis. I have reviewed her culture results which were obtained 01/17/2023 demonstrating: Providencia rettgeri, Staph aureus, Stap agalactaie, and Kocuria kristinae. She was prescribed Augmentin [address] Omar MD. Patient however states she never realized prescription was phoned in for her to seed cone picker and had not been taking the antibiotic. She did seed cone picker antibiotic and has completed this antibiotic course. Ulceration underwent debridement as noted in the clinical panel above. Ulcerative site demonstrates healthy granular base with surrounding hyperkeratosis. No signs of infection. Ulceration measures 0.3 cm x 0.2 cm x 0.1 cm. Katrina applied to ulcerative base and dressed with dry sterile dressing. She is to change dressing daily. Ulceration does demonstrate reduction in size versus previous visit. Following debridement cultures were obtained 03/01/23 due to her continued significant drainage. She was empirically started on oral doxycycline 100 mg p.o. twice daily x14 days and oral ciprofloxacin 500 mg p.o. twice daily x14 days. She states that she picked up oral abx and started on 03/08/23. Culture results demonstrate PsA, Providencia rettgeri, corynebacterium jeikeium, Staphylococcus cohnii urealyti, and anaerobic cocci. 03/22/2023 she completed antibiotic course and due to patient leaving [facility] antibiotic course was extended. She will finished oral abx 04/05/23. She was instructed to stay off feet as much as possible to continue to aid in pressure reduction to the ulcerative site. Rx for knee scooter was written 03/29/23. She states she did get the knee scooter is using this to remain non-weight bearing to the right foot. Reminded her she is to remain nonweightbearing in the CAM boot for offloading with knee scooter assistance. Stressed importance of continuing knee scooter today. She was instructed to continue offloading in CAM boot for the right lower extremity with plantar offloading padding for first metatarsal head. She was instructed to remain in the CAM boot at all times and not to wear flip-flops. She may remove the boot for shower purposes and sleeping. She voices understanding of this. Discussed that pressure reduction to the site is essential for her healing status. Discussed proper diabetic diet to maintain tight glycemic control. Last A1c 09/2022 was 7.0%. Discussed continued diet and exercise along with lifestyle modification/weight loss to aid in healthy lifestyle. Discussed importance of daily foot checks. Discussed adequate protein intake to aid in wound healing. She may take Jeremy supplementation to aid in wound healing. Discussed being diabetic she is never to go barefoot and should wear closed toed shoes at all times. Discussed with her socks is considered barefoot. Encouraged shoe gear to be worn at all times. She voices understanding of this. Recommend diabetic shoes with plantar offloading padding once ulceration has healed. Discussed signs and symptoms of infection. Discussed if she notices redness about the ulcerative site that moves to the top of the foot and up the foot, purulent drainage from the wound site, increasing foul odor, or if she experiences fever greater than 101 degree, nausea, vomiting, chills that these are signs of a progressing infection and she should report to the ED for IV antibiotics. She voices understanding of this today. The following work up and care recommendations were made: Dressing: Katrina and dry sterile dressing. Change daily Wash: Soap and water Tissue growth optimization: Katrina Offload: CAM boot with plantar offloading padding. Remain nonweightbearing to right lower extremity with assistance of knee scooter. Vascular: Palpable pedal pulses bilateral. LEAS obtained and reviewed from 01/17/2023 demonstrating no significant arterial occlusive disease. She is noted to have mild arterial disease of the popliteal/SFA bilateral. On Doppler DP and PT are triphasic bilateral. Edema: No edema noted Infection: No signs of infection Pain: May take [id number] Tylenol for discomfort Host factors: DM type II with peripheral polyneuropathy, hallux limitus right foot, hallux malleus right foot, morbid obesity, equinus deformity all complicated healing potential I answered all the patient's questions. To return to the wound healing center in 1 week or call sooner if the patient has any questions or concerns.
== END 2023-06-07 23:59 | disposition home or self-care (01) ==
LOC: WC 10:00
PROVIDERS: PCP Nurse Practitioner Family; Referring Provider Family Medicine; Visit Provider Student in an Organized Health Care Education/Training Program
DX: E11.621 Type 2 diabetes mellitus with foot ulcer (principal); L97.512 Non-pressure chronic ulcer of other part of right foot with fat layer exposed; E11.42 Type 2 diabetes mellitus with diabetic polyneuropathy; E66.01 Morbid (severe) obesity due to excess calories; E78.5 Hyperlipidemia, unspecified; I10 Essential (primary) hypertension; Q66.30 Other congenital varus deformities of feet, unspecified foot; G62.9 Polyneuropathy, unspecified
CPT/HCPCS: 11042

== ENCOUNTER 2023-07-05 08:45 | Outpatient (RCR) | payer OTHER, SELFPAY ==
[2023-06-08 00:19] VITALS: BP 185/85; PULSE 78; RESP 18; TEMP 36.1; BMI 41.8
[2023-06-14 08:44] VITALS: BP 189/79; PULSE 82; RESP 18; TEMP 35.3; BMI 41.8
--- NOTE | 2023-06-14 10:09 | PN.PCM_ITS ---
History of Present Illness Date of Service: 06/14/23 Chief Complaint: Diabetic foot ulceration, right metatarsal-phalangeal joint, plantar surface History of Wound: This is a 58-year-old, morbidly-obese, diabetic female who presents with a large ulceration on the right great toe. The ulceration is located at the right first metatarsophalangeal joint, on the plantar surface. It has been present for approximately 4 months. According to the patient, it originated as a callus, and she ripped off the skin . She has been using Watkin's salve topically. The patient does not see a research home economist on a regular basis. Her BMI is 41.8. She denies a history of smoking. She also denies a history of myocardial infarction, congestive heart failure, cerebrovascular accident, pulmonary disease, renal disease, and thyroid disease. Most recent hemoglobin A1c was 7.0 in September,. Laboratory studies obtained recently, dated January 03, 2023, are as follows: White blood count 8.7, hemoglobin 13.5, hematocrit 41.4, platelets 308,000, sodium 138, potassium 4.0, chloride 101, BUN 14, creatinine 0.65, glucose 140, calcium 9.3, bilirubin 0.40, AST 19, ALT 24, alkaline phosphatase 107, protein 7.8, albumin 3.3. Subjective Subjective This is a 58-year-old diabetic female who presents to the wound care center today for follow-up of a plantar first metatarsal head ulceration of the right foot. She is changing dressings daily with Katrina. She has continued to offload in the CAM boot with plantar offloading padding and remaining nonweightbearing to the right lower extremity with assistance of knee scooter. She denies any constitutional symptoms. She denies further complaints. Objective Data Objective Data Vital Signs: Vital Signs Temp Pulse Resp BP O2 Del Method 95.6 F L 82 18 189/79 H Room Air 06/14/23 08:44 06/14/23 08:44 06/14/23 08:44 06/14/23 08:44 06/14/23 08:44 Oxygen Delivery Method Room Air Weight: 110.677 kg Body Mass Index (BMI) 41.8 Physical Exam Const alert, oriented x3, no apparent distress and well nourished General Appearance: cooperative HEENT normocephalic Eyes General Eye: normal appearance of both eyes Neck General: normal visual inspection Lymph Lymphatic: no lymphadenopathy noted and no lymphedema noted Resp normal respiratory effort Cardio regular rate and regular rhythm Extremity normal capillary refill, no joint enlargement, no calf tenderness and no pedal edema Extremity Narrative: DP and PT pulses palpable bilateral. Capillary fill time to the digits less than 5 seconds bilateral. Hair growth diminished to the digits bilateral. Dermatological: Skin appears well-hydrated with normal turgor. Hyperkeratotic tissue Sub first metatarsal head of the left foot with no evidence of open wound. There is an ulceration noted to the plantar aspect of the first metatarsal head of the right foot with surrounding hyperkeratotic tissue. Wound bed demonstrates granular tissue. No purulent drainage, no malodor, no palpable fluctuance/bogginess, no visible abscess formation, no lymphangitic streaking. Ulceration does not probe to bone. Musculoskeletal: Muscle strength 5 of 5 age-appropriate. She does demonstrate decreased range of motion of the first metatarsophalangeal joint bilateral without pain or crepitus. Decreased range of motion of the ankle joint in dorsiflexion with the knee extended without pain or crepitus bilateral. Hammertoe deformity of the right hallux. No pain to palpation about the ulcerative site plantar first metatarsal head right foot Skin no rashes or lesions noted, skin turgor normal and no jaundice Neuro moves all extremities Neuro Narrative: Decreased protective sensation secondary to diabetic peripheral polyneuropathy Debridement Note Debridement Note Wound debrided: Subfirst metatarsal head Laterality: Right Wound Grade/Stage: Nichols stage I Type of Debridement: Excisional debridement Anesthesia Used: 5% Lidocaine Gel Depth: Down to and including healthy tissue and in the subcutaneous layer Percentage of wound debrided: 100 Instrument Used: #15 blade Tissue Removed: Fibrous, devitalized subcutaneous, biofilm, slough Severity: Fat Layer Exposed Amount of bleeding with debridement: Mild Bleeding Controlled with: Compression and gauze Patient tolerated procedure: Patient tolerated procedure well Post-Debridement Measurements and Additional Note: Post-Debridement Measurements/Treatment WC - Nurse 1 - General Ulcer Assessment Start: 06/14/23 08:44 Freq: Status: Active Protocol: JAXSON Activity Type Activity Date Activity User E-sign Co-sign Detail Recorded Client Recorded Date Recorded By Document 06/14/23 08:44 GM Desktop 06/14/23 08:50 GM 06/14/23 08:44 - Today's Visit Information Type of service Follow-up Visit (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/INCENDIARIES 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 ) Arrival Mode Ambulatory Transfer Assistance None Patient Identification Verified (Name & Yes ) Patient Requires Transmission-Based No Precautions Height and Weight Body Mass Index (BMI) 41.8 BMI Classification Obese Vital Signs Temperature (97.8 F-99.1 F) 95.6 F L Temperature Source Temporal Pulse Rate (60-100) 82 Pulse Location Monitor Respiratory Rate (12-18) 18 Respiratory rate source Observation Oxygen Delivery Method Room Air Blood Pressure (90/60-120/80) 189/79 H Blood Pressure Mean (mm Hg) 115 Source Monitor Position Sitting Blood Pressure Location Left Arm History Since Last Visit- (Skip if this is Patient's initial visit) Have you changed medications since your No last visit? Any new allergies or adverse reactions No Had a fall/change in ADL's that may No increase risk of falls Signs or symptoms of abuse and/or No neglect since last visit Have you been in the hospital since your No last visit? Has dressing in place as prescribed Yes Has compression in place as prescribed N/A Has offloadiing in place as prescribed Yes Experienced any changes in pain level or No management Left Footwear Regular Shoe Right Footwear Removable Cast Walker/Walking Boot Pain Scale: 0-10 Numeric Is Patient Pain Free? Yes - Nurse 1 - General Ulcer Measurement Start: 06/14/23 08:44 Freq: Status: Active Protocol: Activity Type Activity Date Activity User E-sign Co-sign Detail Recorded Client Recorded Date Recorded By Document 06/14/23 08:44 Desktop 06/14/23 08:50 06/14/23 08:44 Wound Center Nurse 1 # 2 Right lateral plantar -Current Size (cm) - Length 0.8 -Current Size (cm) - Width 0.1 -Current Size (cm) - Depth 0.3 -Total Square Cm 0.08 -Photo Taken No -Epithelialization Small 1-33% -Tunneling No -Undermining/Tunneling Yes -Undermining/Tunneling Starts (O'clock 9 ) -Undermining/Tunneling Ends (O'clock) 12 -Maximum Distance (cm) 0.5 -Circular Undermining No -Exudate Amt Small -Exudate Type Yellow/Green -Wound Margin Distinct, Outline Attached -Granulation Amt Medium (34-66%) -Granulation Quality Red -Necrosis Amt Small (1-33%) -Structure Exposed N/A -Texture (Kelsie-wound Skin Appearance) Assessed -Moisture (Kelsie-wound Skin Appearance) Assessed -Color (Kelsie-wound Skin Appearance) Assessed -Temperature (Kelsie-wound Skin No Abnormality Appearance) (Pt Warm) -Tenderness on Palpation (Kelsie-wound No Skin Appearance) -Ulcer Cleansing Soap and Water -Foul Odor after Cleansing No -Anesthetic Used 5% Lidocaine Gel WC - Nurse 3 - General Ulcer D/C NN Start: 06/14/23 08:44 Freq: Status: Active Protocol: Activity Type Activity Date Activity User E-sign Co-sign Detail Recorded Client Recorded Date Recorded By Document 06/14/23 09:35 DL Desktop 06/14/23 09:37 DL 06/14/23 09:35 Wound Care Center Nurse 3 #1 right plantar foot -Ulcer Cleansing Soap and Water -Foul Odor after Cleansing No -Primary Dressing Covered/Secured with Dry Gauze & Roll Gauze, Secured with Tape -Other Covering sutured Treatment Response Procedure Tolerated Well Pain Scale: 0-10 Numeric Is Patient Pain Free? 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: CODE(S): L97.512 - Non-pressure chronic ulcer of other part of right foot with fat layer exposed (5) Acquired hallux limitus of right foot: CODE(S): M20.5X1 - Other deformities of toe(s) (acquired), right foot (6) Hallux malleus of right foot: CODE(S): M20.31 - Hallux varus (acquired), right foot (7) Type 2 diabetes mellitus with foot ulcer: CODE(S): E11.621 - Type 2 diabetes mellitus with foot ulcer; L97.509 - Non-pressure chronic ulcer of other part of unspecified foot with unspecified severity (8) Diabetes mellitus with diabetic polyneuropathy: CODE(S): E11.42 - Type 2 diabetes mellitus with diabetic polyneuropathy PLAN: Plan Patient seen and evaluated. Patient was non-weight bearing in CAM boot with plantar offloading padding and knee scooter today I have reviewed the LEAS performed 01/17/2023 demonstrating: Left foot triphasic DP and PT on Doppler; Indices left foot PT- 1.05. DP 1.03, Digit 0.91; right foot triphasic DP and PT on Doppler; Indices foot PT 1.10, DP 1.16, digit noncompressible. PVR diminished at ankle and digit on left with noncompressible digit right foot. Impression no evidence of significant occlusive arterial disease. Reviewed diagnostic data from 01/17/2023 demonstrating WBC of 8.7 Radiographic imaging obtained 01/17/2023 demonstrating no evidence of osteomyelitis. I have reviewed this imaging and concur with the radiographic read. Updated radiograph of the right foot ordered 03/29/2023, radiograph demonstrates no signs of osteomyelitis. I have reviewed her culture results which were obtained 01/17/2023 demonstrating: Providencia rettgeri, Staph aureus, Stap agalactaie, and Kocuria kristinae. She was prescribed Augmentin [address] Omar MD. Patient however states she never realized prescription was phoned in for her to warp picker and had not been taking the antibiotic. She did warp picker antibiotic and has completed this antibiotic course. Ulceration underwent debridement as noted in the clinical panel above. Ulcerative site demonstrates healthy granular base with surrounding hyperkeratosis. No signs of infection. Ulceration measures 0.5 cm x 0.2 cm x 0.1 cm. Skin was prepped with 70% isopropyl rubbing alcohol and a local anesthetic was given about the wound site consisting of 3 cc 1% lidocaine plain and following debridement of the superficial ulceration the skin was reapproximated with delayed primary closure utilizing a 2-0 Prolene in simple interrupted fashion. She was instructed to keep the site clean, dry, intact. Ulceration does demonstrate slight increase in size versus previous visit secondary to skin tear. Following debridement cultures were obtained 03/01/23 due to her continued significant drainage. She was empirically started on oral doxycycline 100 mg p.o. twice daily x14 days and oral ciprofloxacin 500 mg p.o. twice daily x14 days. She states that she picked up oral abx and started on 03/08/23. Culture results demonstrate PsA, Providencia rettgeri, corynebacterium jeikeium, Staphylococcus cohnii urealyti, and anaerobic cocci. 03/22/2023 she completed antibiotic course and due to patient leaving town antibiotic course was extended. She will finished oral abx 04/05/23. She was instructed to stay off feet as much as possible to continue to aid in pressure reduction to the ulcerative site. Rx for knee scooter was written 03/29/23. She states she did get the knee scooter is using this to remain non- weight bearing to the right foot. Reminded her she is to remain nonweightbearing in the CAM boot for offloading with knee scooter assistance. Stressed importance of continuing knee scooter today. She was instructed to continue offloading in CAM boot for the right lower extremity with plantar offloading padding for first metatarsal head. She was instructed to remain in the CAM boot at all times and not to wear flip-flops. She may remove the boot for shower purposes and sleeping. She voices understanding of this. Discussed that pressure reduction to the site is essential for her healing status. Discussed proper diabetic diet to maintain tight glycemic control. Last A1c 09/2022 was 7.0%. Discussed continued diet and exercise along with lifestyle modification/weight loss to aid in healthy lifestyle. Discussed importance of daily foot checks. Discussed adequate protein intake to aid in wound healing. She may take Jeremy supplementation to aid in wound healing. Discussed being diabetic she is never to go barefoot and should wear closed toed shoes at all times. Discussed with her socks is considered barefoot. Encouraged shoe gear to be worn at all times. She voices understanding of this. Recommend diabetic shoes with plantar offloading padding once ulceration has healed. Discussed signs and symptoms of infection. Discussed if she notices redness about the ulcerative site that moves to the top of the foot and up the foot, purulent drainage from the wound site, increasing foul odor, or if she experiences fever greater than 101 degree, nausea, vomiting, chills that these are signs of a progressing infection and she should report to the ED for IV antibiotics. She voices understanding of this today. The following work up and care recommendations were made: Dressing: Betadine and dry sterile dressing. Leave intact. Wash: Do not get wet Tissue growth optimization: None Offload: CAM boot with plantar offloading padding. Remain nonweightbearing to right lower extremity with assistance of knee scooter. Vascular: Palpable pedal pulses bilateral. LEAS obtained and reviewed from 01/17/2023 demonstrating no significant arterial occlusive disease. She is noted to have mild arterial disease of the popliteal/SFA bilateral. On Doppler DP and PT are triphasic bilateral. Edema: No edema noted Infection: No signs of infection Pain: May take [id number] Tylenol for discomfort Host factors: DM type II with peripheral polyneuropathy, hallux limitus right foot, hallux malleus right foot, morbid obesity, equinus deformity all complicated healing potential I answered all the patient's questions. To return to the wound healing center in 1 week or call sooner if the patient has any questions or concerns.
[2023-06-21 08:37] VITALS: BP 170/88; PULSE 89; RESP 18; TEMP 35.9; BMI 41.8
--- NOTE | 2023-06-21 08:52 | PCM.WC.PN ---
History of Present Illness Date of Service: 06/21/23 Chief Complaint: Diabetic foot ulceration, right metatarsal-phalangeal joint, plantar surface History of Wound: This is a 58-year-old, morbidly-obese, diabetic female who presents with a large ulceration on the right great toe. The ulceration is located at the right first metatarsophalangeal joint, on the plantar surface. It has been present for approximately 4 months. According to the patient, it originated as a callus, and she ripped off the skin . She has been using Watkin's salve topically. The patient does not see a training representative on a regular basis. Her BMI is 41.8. She denies a history of smoking. She also denies a history of myocardial infarction, congestive heart failure, cerebrovascular accident, pulmonary disease, renal disease, and thyroid disease. Most recent hemoglobin A1c was 7.0 in September,. Laboratory studies obtained recently, dated January 03, 2023, are as follows: White blood count 8.7, hemoglobin 13.5, hematocrit 41.4, platelets 308,000, sodium 138, potassium 4.0, chloride 101, BUN 14, creatinine 0.65, glucose 140, calcium 9.3, bilirubin 0.40, AST 19, ALT 24, alkaline phosphatase 107, protein 7.8, albumin 3.3. Subjective Subjective This is a 58-year-old diabetic female who presents to the wound care center today for follow-up of a plantar first metatarsal head ulceration of the right foot. She has kept dressings clean, dry, and intact to the Right foot. She has continued to offload in the CAM boot with plantar offloading padding and remaining nonweightbearing to the right lower extremity with assistance of knee scooter. She denies any constitutional symptoms. She denies further complaints. Objective Data Objective Data Vital Signs: Vital Signs Temp Pulse Resp BP O2 Del Method 96.7 F L 89 18 170/88 H Room Air 06/21/23 08:37 06/21/23 08:37 06/21/23 08:37 06/21/23 08:37 06/21/23 08:37 Oxygen Delivery Method Room Air Weight: 110.677 kg Body Mass Index (BMI) 41.8 Physical Exam Const alert, oriented x3, no apparent distress and well nourished General Appearance: cooperative HEENT normocephalic Eyes General Eye: normal appearance of both eyes Neck General: normal visual inspection Lymph Lymphatic: no lymphadenopathy noted and no lymphedema noted Resp normal respiratory effort Cardio regular rate and regular rhythm Extremity normal capillary refill, no joint enlargement, no calf tenderness and no pedal edema Extremity Narrative: DP and PT pulses palpable bilateral. Capillary fill time to the digits less than 5 seconds bilateral. Hair growth diminished to the digits bilateral. Dermatological: Skin appears well-hydrated with normal turgor. Hyperkeratotic tissue Sub first metatarsal head of the left foot with no evidence of open wound. Sutures intact to plantar first metatarsal head right foot with skin well coapted. No signs of infection. Musculoskeletal: Muscle strength 5 of 5 age-appropriate. She does demonstrate decreased range of motion of the first metatarsophalangeal joint bilateral without pain or crepitus. Decreased range of motion of the ankle joint in dorsiflexion with the knee extended without pain or crepitus bilateral. Hammertoe deformity of the right hallux. No pain to palpation about the ulcerative site plantar first metatarsal head right foot Skin no rashes or lesions noted, skin turgor normal and no jaundice Neuro moves all extremities Neuro Narrative: Decreased protective sensation secondary to diabetic peripheral polyneuropathy Debridement Note Debridement Note No debridement was completed: No debridement was completed today Post-Debridement Measurements and Additional Note: Post-Debridement Measurements/Treatment - Nurse 1 - General Ulcer Assessment Start: 06/14/23 08:44 Freq: Status: Active Protocol: WC.LOWEXT Activity Type Activity Date Activity User E-sign Co-sign Detail Recorded Client Recorded Date Recorded By Document 06/14/23 08:44 Desktop 06/14/23 08:50 GM Document 06/21/23 08:37 KW Desktop 06/21/23 08:46 KW 06/14/23 06/21/23 08:44 08:37 - Today's Visit Information Type of service Follow-up Visit Follow-up Visit (Physician/FOOD AND NUTRITION SUPERVISOR (Physician/FOOD AND NUTRITION SUPERVISOR ) ) Arrival Mode Ambulatory Ambulatory Transfer Assistance None Patient Identification Verified (Name & Yes Yes ) Patient Requires Transmission-Based No Precautions Height and Weight Body Mass Index (BMI) 41.8 41.8 BMI Classification Obese Obese Vital Signs Temperature (97.8 F-99.1 F) 95.6 F L 96.7 F L Temperature Source Temporal Temporal Pulse Rate (60-100) 82 89 Pulse Location Monitor Monitor Respiratory Rate (12-18) 18 18 Respiratory rate source Observation Observation Oxygen Delivery Method Room Air Room Air Blood Pressure (90/60-120/80) 189/79 H 170/88 H Blood Pressure Mean (mm Hg) 115 115 Source Monitor Monitor Position Sitting Sitting Blood Pressure Location Left Arm Left Arm History Since Last Visit- (Skip if this is Patient's initial visit) Have you changed medications since your No No last visit? Any new allergies or adverse reactions No No Had a fall/change in ADL's that may No No increase risk of falls Signs or symptoms of abuse and/or No No neglect since last visit Have you been in the hospital since your No No last visit? Has dressing in place as prescribed Yes Yes Has compression in place as prescribed N/A No Has offloadiing in place as prescribed Yes Yes Experienced any changes in pain level or No No management Left Footwear Regular Shoe Regular Shoe Right Footwear Removable Cast Removable Cast Walker/Walking Walker/Walking Boot Boot Pain Scale: 0-10 Numeric Is Patient Pain Free? Yes Yes WC - Nurse 1 - General Ulcer Measurement Start: 06/14/23 08:44 Freq: Status: Active Protocol: Activity Type Activity Date Activity User E-sign Co-sign Detail Recorded Client Recorded Date Recorded By Document 06/14/23 08:44 GM Desktop 06/14/23 08:50 GM Document 06/21/23 08:37 KW Desktop 06/21/23 08:46 KW 06/14/23 06/21/23 08:44 08:37 Wound Center Nurse 1 # 2 Right lateral plantar -Current Size (cm) - Length 0.8 -Current Size (cm) - Width 0.1 -Current Size (cm) - Depth 0.3 -Total Square Cm 0.08 -Photo Taken No -Epithelialization Small 1-33% -Tunneling No -Undermining/Tunneling Yes -Undermining/Tunneling Starts (O'clock 9 ) -Undermining/Tunneling Ends (O'clock) 12 -Maximum Distance (cm) 0.5 -Circular Undermining No -Exudate Amt Small -Exudate Type Yellow/Green -Wound Margin Distinct, Outline Attached -Granulation Amt Medium (34-66%) -Granulation Quality Red -Necrosis Amt Small (1-33%) -Structure Exposed N/A -Texture (Kelsie-wound Skin Appearance) Assessed -Moisture (Kelsie-wound Skin Appearance) Assessed -Color (Kelsie-wound Skin Appearance) Assessed -Temperature (Kelsie-wound Skin No Abnormality Appearance) (Pt Warm) -Tenderness on Palpation (Kelsie-wound No Skin Appearance) -Ulcer Cleansing Soap and Water -Foul Odor after Cleansing No -Anesthetic Used 5% Lidocaine Gel #1 right plantar foot -Wound Comment(s) wound is sutured, intact WC - Nurse 2 - General Ulcer CM Notes Start: 06/14/23 08:44 Freq: Status: Active Protocol: Activity Type Activity Date Activity User E-sign Co-sign Detail Recorded Client Recorded Date Recorded By Document 06/14/23 10:24 PL [id number] 06/14/23 10:25 PL 06/14/23 10:24 Wound Center Nurse 2 -Time 09:13 -Correct Patient Yes -Correct Side, Site, Position Yes -Correct Procedure Yes -Procedure Performed Yes -Type of Procedure Debridement -Clinical Debridement Subcutaneous -Tissue Removed Subcutaneous -Post Debridement (cm) - Length 0.5 -Post Debridement (cm) - Width 0.2 -Post Debridement (cm) - Depth 0.1 -Total Square (Post) (cm) 0.10 -Area of Debridement (cm) - Length 0.5 -Area of Debridement (cm) - Width 0.2 -Total Square (Area) (cm) 0.10 -Tunneling No -Undermining/Tunneling No -Circular Undermining No -Wound/Ulcer Outcome Not Healed -Ulcer Cleansing Rinsed/ Irrigated with Saline -Foul Odor after Cleansing No -Bioengineered Tissue No -Bleeding Controlled with Pressure -Treatment Response Procedure Tolerated Well -Debridement - Subq, 1st 20sq cm Yes Pain Scale: 0-10 Numeric Is Patient Pain Free? Yes - Nurse 3 - General Ulcer D/C NN Start: 06/14/23 08:44 Freq: Status: Active Protocol: Activity Type Activity Date Activity User E-sign Co-sign Detail Recorded Client Recorded Date Recorded By Document 06/14/23 09:35 DL Desktop 06/14/23 09:37 DL 06/14/23 09:35 Wound Care Center Nurse 3 #1 right plantar foot -Ulcer Cleansing Soap and Water -Foul Odor after Cleansing No -Primary Dressing Covered/Secured with Dry Gauze & Roll Gauze, Secured with Tape -Other Covering sutured Treatment Response Procedure Tolerated Well Pain Scale: 0-10 Numeric Is Patient Pain Free? Yes WC - Visit Discharge Discharge Condition Stable Ambulatory Status Walker Transportation Private Auto Assessment/Plan Assessment/Plan (1) Morbid obesity with BMI of 40.0-44.9, adult: CODE(S): E66.01 - Morbid (severe) obesity due to excess calories; Z68.41 - Body mass index [BMI] 40.0-44.9, adult (2) Hypertension: CODE(S): I10 - Essential (primary) hypertension (3) Gastrocnemius equinus of right lower extremity: CODE(S): M21.861 - Other specified acquired deformities of right lower leg (4) Non-pressure chronic ulcer of other part of right foot with fat layer exposed: CODE(S): L97.512 - Non-pressure chronic ulcer of other part of right foot with fat layer exposed (5) Acquired hallux limitus of right foot: CODE(S): M20.5X1 - Other deformities of toe(s) (acquired), right foot (6) Hallux malleus of right foot: CODE(S): M20.31 - Hallux varus (acquired), right foot (7) Type 2 diabetes mellitus with foot ulcer: CODE(S): E11.621 - Type 2 diabetes mellitus with foot ulcer; L97.509 - Non-pressure chronic ulcer of other part of unspecified foot with unspecified severity (8) Diabetes mellitus with diabetic polyneuropathy: CODE(S): E11.42 - Type 2 diabetes mellitus with diabetic polyneuropathy PLAN: Plan Patient seen and evaluated. Patient was non-weight bearing in CAM boot with plantar offloading padding and knee scooter today I have reviewed the LEAS performed 01/17/2023 demonstrating: Left foot triphasic DP and PT on Doppler; Indices left foot PT- 1.05. DP 1.03, Digit 0.91; right foot triphasic DP and PT on Doppler; Indices foot PT 1.10, DP 1.16, digit noncompressible. PVR diminished at ankle and digit on left with noncompressible digit right foot. Impression no evidence of significant occlusive arterial disease. Reviewed diagnostic data from 01/17/2023 demonstrating WBC of 8.7 Radiographic imaging obtained 01/17/2023 demonstrating no evidence of osteomyelitis. I have reviewed this imaging and concur with the radiographic read. Updated radiograph of the right foot ordered 03/29/2023, radiograph demonstrates no signs of osteomyelitis. I have reviewed her culture results which were obtained 01/17/2023 demonstrating: Providencia rettgeri, Staph aureus, Stap agalactaie, and Kocuria kristinae. She was prescribed Augmentin [address] Omar MD. Patient however states she never realized prescription was phoned in for her to peanut picker and had not been taking the antibiotic. She did peanut picker antibiotic and has completed this antibiotic course. Ulceration underwent debridement on 06/14/2023. At that time ulcerative site demonstrates healthy granular base with surrounding hyperkeratosis. No signs of infection. Ulceration measures 0.5 cm x 0.2 cm x 0.1 cm. Skin was prepped with 70% isopropyl rubbing alcohol and a local anesthetic was given about the wound site consisting of 3 cc 1% lidocaine plain and following debridement of the superficial ulceration the skin was reapproximated with delayed primary closure utilizing a 2-0 Prolene in simple interrupted fashion. She was instructed to keep the site clean, dry, intact. Sutures remain intact today with skin well coapted. No signs of infection. Sutures have been in place for 7 days. Discussed removing sutures in 14 days for optimized healing of her delayed primary closure. Dressings changed today consisting of Betadine soaked Adaptic, and dry sterile dressing. She is to continue to keep dressings clean, dry, and intact to the right foot and remain offloaded in cam boot. Following debridement cultures were obtained 03/01/23 due to her continued significant drainage. She was empirically started on oral doxycycline 100 mg p.o. twice daily x14 days and oral ciprofloxacin 500 mg p.o. twice daily x14 days. She states that she picked up oral abx and started on 03/08/23. Culture results demonstrate PsA, Providencia rettgeri, corynebacterium jeikeium, Staphylococcus cohnii urealyti, and anaerobic cocci. 03/22/2023 she completed antibiotic course and due to patient leaving town antibiotic course was extended. She will finished oral abx 04/05/23. She was instructed to stay off feet as much as possible to continue to aid in pressure reduction to the ulcerative site. Rx for knee scooter was written 03/29/23. She states she did get the knee scooter is using this to remain non-weight bearing to the right foot. Reminded her she is to remain nonweightbearing in the CAM boot for offloading with knee scooter assistance. Stressed importance of continuing knee scooter today. She was instructed to continue offloading in CAM boot for the right lower extremity with plantar offloading padding for first metatarsal head. She was instructed to remain in the CAM boot at all times and not to wear flip-flops. She may remove the boot for shower purposes and sleeping. She voices understanding of this. Discussed that pressure reduction to the site is essential for her healing status. Discussed proper diabetic diet to maintain tight glycemic control. Last A1c 09/2022 was 7.0%. Discussed continued diet and exercise along with lifestyle modification/weight loss to aid in healthy lifestyle. Discussed importance of daily foot checks. Discussed adequate protein intake to aid in wound healing. She may take Jeremy supplementation to aid in wound healing. Discussed being diabetic she is never to go barefoot and should wear closed toed shoes at all times. Discussed with her socks is considered barefoot. Encouraged shoe gear to be worn at all times. She voices understanding of this. Recommend diabetic shoes with plantar offloading padding once ulceration has healed. Discussed signs and symptoms of infection. Discussed if she notices redness about the ulcerative site that moves to the top of the foot and up the foot, purulent drainage from the wound site, increasing foul odor, or if she experiences fever greater than 101 degree, nausea, vomiting, chills that these are signs of a progressing infection and she should report to the ED for IV antibiotics. She voices understanding of this today. The following work up and care recommendations were made: Dressing: Betadine and dry sterile dressing. Leave intact. Wash: Do not get wet Tissue growth optimization: None Offload: CAM boot with plantar offloading padding. Remain nonweightbearing to right lower extremity with assistance of knee scooter. Vascular: Palpable pedal pulses bilateral. LEAS obtained and reviewed from 01/17/2023 demonstrating no significant arterial occlusive disease. She is noted to have mild arterial disease of the popliteal/SFA bilateral. On Doppler DP and PT are triphasic bilateral. Edema: No edema noted Infection: No signs of infection Pain: May take [id number] Tylenol for discomfort Host factors: DM type II with peripheral polyneuropathy, hallux limitus right foot, hallux malleus right foot, morbid obesity, equinus deformity all complicated healing potential I answered all the patient's questions. To return to the wound healing center in 2 weeks or call sooner if the patient has any questions or concerns.
[2023-07-05 08:45] VITALS: BP 176/95; PULSE 81; RESP 18; TEMP 35.8; BMI 41.8
--- NOTE | 2023-07-05 09:16 | PN.PCM_ITS ---
History of Present Illness Date of Service: 07/05/23 Chief Complaint: Diabetic foot ulceration, right metatarsal-phalangeal joint, plantar surface History of Wound: This is a 58-year-old, morbidly-obese, diabetic female who presents with a large ulceration on the right great toe. The ulceration is located at the right first metatarsophalangeal joint, on the plantar surface. It has been present for approximately 4 months. According to the patient, it originated as a callus, and she ripped off the skin . She has been using Watkin's salve topically. The patient does not see a duplicating machine mechanic on a regular basis. Her BMI is 41.8. She denies a history of smoking. She also denies a history of myocardial infarction, congestive heart failure, cerebrovascular accident, pulmonary disease, renal disease, and thyroid disease. Most recent hemoglobin A1c was 7.0 in September,. Laboratory studies obtained recently, dated January 03, 2023, are as follows: White blood count 8.7, hemoglobin 13.5, hematocrit 41.4, platelets 308,000, sodium 138, potassium 4.0, chloride 101, BUN 14, creatinine 0.65, glucose 140, calcium 9.3, bilirubin 0.40, AST 19, ALT 24, alkaline phosphatase 107, protein 7.8, albumin 3.3. Subjective Subjective This is a 58-year-old diabetic female who presents to the wound care center today for follow-up of a plantar first metatarsal head ulceration of the right foot. She has kept dressings clean, dry, and intact to the Right foot. She has continued to offload in the CAM boot with plantar offloading padding and remaining nonweightbearing to the right lower extremity with assistance of knee scooter. States foot did get a little wet recently and thinks she split stitches. She denies any constitutional symptoms. She denies further complaints. Objective Data Objective Data Vital Signs: Vital Signs Temp Pulse Resp BP O2 Del Method 96.4 F L 81 18 176/95 H Room Air 07/05/23 08:45 07/05/23 08:45 07/05/23 08:45 07/05/23 08:45 06/21/23 08:37 Oxygen Delivery Method Room Air Weight: 110.677 kg Body Mass Index (BMI) 41.8 Physical Exam Const alert, oriented x3, no apparent distress and well nourished General Appearance: cooperative HEENT normocephalic Eyes General Eye: normal appearance of both eyes Neck General: normal visual inspection Lymph Lymphatic: no lymphadenopathy noted and no lymphedema noted Resp normal respiratory effort Cardio regular rate and regular rhythm Extremity normal capillary refill, no joint enlargement, no calf tenderness and no pedal edema Extremity Narrative: DP and PT pulses palpable bilateral. Capillary fill time to the digits less than 5 seconds bilateral. Hair growth diminished to the digits bilateral. Dermatological: Skin appears well-hydrated with normal turgor. Hyperkeratotic tissue Sub first metatarsal head of the left foot with no evidence of open wound. Sutures intact to plantar first metatarsal head right foot with skin well coapted. No signs of infection. Musculoskeletal: Muscle strength 5 of 5 age-appropriate. She does demonstrate decreased range of motion of the first metatarsophalangeal joint bilateral without pain or crepitus. Decreased range of motion of the ankle joint in dorsiflexion with the knee extended without pain or crepitus bilateral. Hammertoe deformity of the right hallux. No pain to palpation about the ulcerative site plantar first metatarsal head right foot Skin no rashes or lesions noted, skin turgor normal and no jaundice Neuro moves all extremities Neuro Narrative: Decreased protective sensation secondary to diabetic peripheral polyneuropathy Debridement Note Debridement Note Wound debrided: Subfirst metatarsal head Laterality: Right Wound Grade/Stage: Nichols stage I Type of Debridement: Excisional debridement Anesthesia Used: 5% Lidocaine Gel Depth: Down to and including healthy tissue and in the subcutaneous layer Percentage of wound debrided: 100 Instrument Used: #15 blade Tissue Removed: Fibrous, devitalized subcutaneous, biofilm, slough Severity: Fat Layer Exposed Amount of bleeding with debridement: Mild Bleeding Controlled with: Compression and gauze Patient tolerated procedure: Patient tolerated procedure well Post-Debridement Measurements and Additional Note: Post-Debridement Measurements/Treatment RADHA - Nurse 1 - General Ulcer Assessment Start: 06/14/23 08:44 Freq: Status: Active Protocol: JAXSON Activity Type Activity Date Activity User E-sign Co-sign Detail Recorded Client Recorded Date Recorded By Document 06/14/23 08:44 GM Desktop 06/14/23 08:50 GM Document 06/21/23 08:37 KW Desktop 06/21/23 08:46 KW Document 07/05/23 08:45 JF Desktop 07/05/23 08:48 06/14/23 06/21/23 07/05/23 08:44 08:37 08:45 - Today's Visit Information Type of service Follow-up Visit Follow-up Visit Follow-up Visit (Physician/R D INTERNSHIP (Physician/R D INTERNSHIP (Physician/R D INTERNSHIP ) ) ) Arrival Mode Ambulatory Ambulatory Ambulatory Transfer Assistance None Patient Identification Verified (Name & Yes Yes Yes ) Patient Requires Transmission-Based No No Precautions Height and Weight Body Mass Index (BMI) 41.8 41.8 41.8 BMI Classification Obese Obese Obese Vital Signs Temperature (97.8 F-99.1 F) 95.6 F L 96.7 F L 96.4 F L Temperature Source Temporal Temporal Temporal Pulse Rate (60-100) 82 89 81 Pulse Location Monitor Monitor Monitor Respiratory Rate (12-18) 18 18 18 Respiratory rate source Observation Observation Observation Oxygen Delivery Method Room Air Room Air Blood Pressure (90/60-120/80) 189/79 H 170/88 H 176/95 H Blood Pressure Mean (mm Hg) 115 115 122 Source Monitor Monitor Monitor Position Sitting Sitting Sitting Blood Pressure Location Left Arm Left Arm Right Arm History Since Last Visit- (Skip if this is Patient's initial visit) Have you changed medications since your No No No last visit? Any new allergies or adverse reactions No No No Had a fall/change in ADL's that may No No No increase risk of falls Signs or symptoms of abuse and/or No No No neglect since last visit Have you been in the hospital since your No No No last visit? Has dressing in place as prescribed Yes Yes Has compression in place as prescribed N/A No Yes Has offloadiing in place as prescribed Yes Yes Yes Experienced any changes in pain level or No No Yes management Left Footwear Regular Shoe Regular Shoe Regular Shoe Right Footwear Removable Cast Removable Cast Removable Cast Walker/Walking Walker/Walking Walker/Walking Boot Boot Boot Pain Scale: 0-10 Numeric Is Patient Pain Free? Yes Yes Yes - Nurse 1 - General Ulcer Measurement Start: 06/14/23 08:44 Freq: Status: Active Protocol: Activity Type Activity Date Activity User E-sign Co-sign Detail Recorded Client Recorded Date Recorded By Document 06/14/23 08:44 Desktop 06/14/23 08:50 GM Document 06/21/23 08:37 KW Desktop 06/21/23 08:46 KW Document 07/05/23 08:45 JF Desktop 07/05/23 08:48 JF 06/14/23 06/21/23 07/05/23 08:44 08:37 08:45 Wound Center Nurse 1 # 2 Right lateral plantar -Current Size (cm) - Length 0.8 -Current Size (cm) - Width 0.1 -Current Size (cm) - Depth 0.3 -Total Square Cm 0.08 -Photo Taken No -Epithelialization Small 1-33% -Tunneling No -Undermining/Tunneling Yes -Undermining/Tunneling Starts (O'clock 9 ) -Undermining/Tunneling Ends (O'clock) 12 -Maximum Distance (cm) 0.5 -Circular Undermining No -Exudate Amt Small -Exudate Type Yellow/Green -Wound Margin Distinct, Outline Attached -Granulation Amt Medium (34-66%) -Granulation Quality Red -Necrosis Amt Small (1-33%) -Structure Exposed N/A -Texture (Kelsie-wound Skin Appearance) Assessed -Moisture (Kelsie-wound Skin Appearance) Assessed -Color (Kelsie-wound Skin Appearance) Assessed -Temperature (Kelsie-wound Skin No Abnormality Appearance) (Pt Warm) -Tenderness on Palpation (Kelsie-wound No Skin Appearance) -Ulcer Cleansing Soap and Water -Foul Odor after Cleansing No -Anesthetic Used 5% Lidocaine Gel #1 right plantar foot -Combined with other wound No -Current Size (cm) - Length 0.1 -Current Size (cm) - Width 0.1 -Current Size (cm) - Depth 0.1 -Total Square Cm 0.01 -Photo Taken No -Epithelialization None Present -Tunneling No -Undermining/Tunneling No -Circular Undermining No -Exudate Amt None Present -Wound Margin Indistinct, Non -Visible -Granulation Amt None Present (0 %) -Slough/Fibrin No -Structure Exposed N/A -Texture (Kelsie-wound Skin Appearance) Assessed,Callus -Moisture (Kelsie-wound Skin Appearance) Assessed,Dry/ Scaly -Color (Kelsie-wound Skin Appearance) Assessed -Temperature (Kelsie-wound Skin No Abnormality Appearance) (Pt Warm) -Tenderness on Palpation (Kelsie-wound No Skin Appearance) -Ulcer Cleansing Rinsed/ Irrigated with Saline -Foul Odor after Cleansing No -Wound Comment(s) wound is sutured, intact Lower Limb Edema Present NA - Nurse 2 - General Ulcer CM Notes Start: 06/14/23 08:44 Freq: Status: Active Protocol: Activity Type Activity Date Activity User E-sign Co-sign Detail Recorded Client Recorded Date Recorded By Document 06/14/23 10:24 PL [id number] 06/14/23 10:25 PL 06/14/23 10:24 Wound Center Nurse 2 #1 right plantar foot -Time 09:13 -Correct Patient Yes -Correct Side, Site, Position Yes -Correct Procedure Yes -Procedure Performed Yes -Type of Procedure Debridement -Clinical Debridement Subcutaneous -Tissue Removed Subcutaneous -Post Debridement (cm) - Length 0.5 -Post Debridement (cm) - Width 0.2 -Post Debridement (cm) - Depth 0.1 -Total Square (Post) (cm) 0.10 -Area of Debridement (cm) - Length 0.5 -Area of Debridement (cm) - Width 0.2 -Total Square (Area) (cm) 0.10 -Tunneling No -Undermining/Tunneling No -Circular Undermining No -Wound/Ulcer Outcome Not Healed -Ulcer Cleansing Rinsed/ Irrigated with Saline -Foul Odor after Cleansing No -Bioengineered Tissue No -Bleeding Controlled with Pressure -Treatment Response Procedure Tolerated Well -Debridement - Subq, 1st 20sq cm Yes Pain Scale: 0-10 Numeric Is Patient Pain Free? Yes - Nurse 3 - General Ulcer D/C NN Start: 06/14/23 08:44 Freq: Status: Active Protocol: Activity Type Activity Date Activity User E-sign Co-sign Detail Recorded Client Recorded Date Recorded By Document 06/14/23 09:35 DL Desktop 06/14/23 09:37 DL Document 06/21/23 09:00 [facility] Desktop 06/21/23 09:01 BMF 06/14/23 06/21/23 09:35 09:00 Wound Care Center Nurse 3 #1 right plantar foot -Ulcer Cleansing Soap and Water Not Cleansed -Foul Odor after Cleansing No -Primary Dressing Applied NonAdherent Contact Layer -Other Dressing betadine paint -Primary Dressing Covered/Secured with Dry Gauze & Dry Gauze & Roll Gauze, Roll Gauze, Secured with Secured with Tape Tape -Other Covering sutured Treatment Response Procedure Procedure Tolerated Well Tolerated Well Pain Scale: 0-10 Numeric Is Patient Pain Free? Yes Yes WC - Visit Discharge Discharge Condition Stable Stable Ambulatory Status Walker Ambulatory Transportation Private Auto Private Auto Assessment/Plan Assessment/Plan (1) Morbid obesity with BMI of 40.0-44.9, adult: CODE(S): E66.01 - Morbid (severe) obesity due to excess calories; Z68.41 - Body mass index [BMI] 40.0-44.9, adult (2) Hypertension: CODE(S): I10 - Essential (primary) hypertension (3) Gastrocnemius equinus of right lower extremity: CODE(S): M21.861 - Other specified acquired deformities of right lower leg (4) Non-pressure chronic ulcer of other part of right foot with fat layer exposed: CODE(S): L97.512 - Non-pressure chronic ulcer of other part of right foot with fat layer exposed (5) Acquired hallux limitus of right foot: CODE(S): M20.5X1 - Other deformities of toe(s) (acquired), right foot (6) Hallux malleus of right foot: CODE(S): M20.31 - Hallux varus (acquired), right foot (7) Type 2 diabetes mellitus with foot ulcer: CODE(S): E11.621 - Type 2 diabetes mellitus with foot ulcer; L97.509 - Non-pressure chronic ulcer of other part of unspecified foot with unspecified severity (8) Diabetes mellitus with diabetic polyneuropathy: CODE(S): E11.42 - Type 2 diabetes mellitus with diabetic polyneuropathy PLAN: Plan Patient seen and evaluated. Patient was non-weight bearing in CAM boot with plantar offloading padding and knee scooter today I have reviewed the LEAS performed 01/17/2023 demonstrating: Left foot triphasic DP and PT on Doppler; Indices left foot PT- 1.05. DP 1.03, Digit 0.91; right foot triphasic DP and PT on Doppler; Indices foot PT 1.10, DP 1.16, digit noncompressible. PVR diminished at ankle and digit on left with noncompressible digit right foot. Impression no evidence of significant occlusive arterial disease. Reviewed diagnostic data from 01/17/2023 demonstrating WBC of 8.7 Radiographic imaging obtained 01/17/2023 demonstrating no evidence of osteomyelitis. I have reviewed this imaging and concur with the radiographic re ad. Updated radiograph of the right foot ordered 03/29/2023, radiograph demonstrates no signs of osteomyelitis. I have reviewed her culture results which were obtained 01/17/2023 demonstrating: Providencia rettgeri, Staph aureus, Stap agalactaie, and Kocuria kristinae. She was prescribed Augmentin [address] Omar MD. 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 She did bean picker machine operator antibiotic and has completed this antibiotic course. Ulceration demonstrated macerated skin secondary to getting wet with torn sutures. Sutures were removed and ulceration underwent debridement on today. No signs of infection. Ulceration measures 1.0 cm x 0.4 cm x 0.1 cm. Skin was prepped with 70% isopropyl rubbing alcohol and a local anesthetic was given about the wound site consisting of 3 cc 1% lidocaine plain and following debridement of the superficial ulceration the skin was reapproximated with delayed primary closure utilizing a 2-0 Prolene in simple interrupted fashion. She was instructed to keep the site clean, dry, intact. Sutures placed today with skin well coapted. No signs of infection. Dressings changed today consisting of Betadine soaked Adaptic, and dry sterile dressing. She is to continue to keep dressings clean, dry, and intact to the right foot and remain offloaded in cam boot. Following debridement cultures were obtained 03/01/23 due to her continued significant drainage. She was empirically started on oral doxycycline 100 mg p.o. twice daily x14 days and oral ciprofloxacin 500 mg p.o. twice daily x14 days. She states that she picked up oral abx and started on 03/08/23. Culture results demonstrate PsA, Providencia rettgeri, corynebacterium jeikeium, Staphylococcus cohnii urealyti, and anaerobic cocci. 03/22/2023 she completed antibiotic course and due to patient leaving [facility] antibiotic course was extended. She will finished oral abx 04/05/23. Ulceration underwent debridement as noted in the clinical panel above. Ulcerative site demonstrates healthy granular base with surrounding hyperkeratosis. No signs of infection. Ulceration measures 0.5 cm x 0.2 cm x 0.1 cm. Skin was prepped with 70% isopropyl rubbing alcohol and a local anesthetic was given about the wound site consisting of 3 cc 1% lidocaine plain and following debridement of the superficial ulceration the skin was reapproximated with delayed primary closure utilizing a 2-0 Prolene in simple interrupted fashion. She was instructed to keep the site clean, dry, intact. She was instructed to stay off feet as much as possible to continue to aid in pressure reduction to the ulcerative site. Rx for knee scooter was written 03/29/23. She states she did get the knee scooter is using this to remain non- weight bearing to the right foot. Reminded her she is to remain nonweightbearing in the CAM boot for offloading with knee scooter assistance. Stressed importance of continuing knee scooter today. She was instructed to continue offloading in CAM boot for the right lower extremity with plantar offloading padding for first metatarsal head. She was instructed to remain in the CAM boot at all times and not to wear flip-flops. She may remove the boot for shower purposes and sleeping. She voices understanding of this. Discussed that pressure reduction to the site is essential for her healing status. Discussed proper diabetic diet to maintain tight glycemic control. Last A1c 09/2022 was 7.0%. Discussed continued diet and exercise along with lifestyle modification/weight loss to aid in healthy lifestyle. Discussed importance of daily foot checks. Discussed adequate protein intake to aid in wound healing. She may take Jeremy supplementation to aid in wound healing. Discussed being diabetic she is never to go barefoot and should wear closed toed shoes at all times. Discussed with her socks is considered barefoot. Encouraged shoe gear to be worn at all times. She voices understanding of this. Recommend diabetic shoes with plantar offloading padding once ulceration has healed. Discussed signs and symptoms of infection. Discussed if she notices redness about the ulcerative site that moves to the top of the foot and up the foot, purulent drainage from the wound site, increasing foul odor, or if she experiences fever greater than 101 degree, nausea, vomiting, chills that these are signs of a progressing infection and she should report to the ED for IV antibiotics. She voices understanding of this today. The following work up and care recommendations were made: Dressing: Betadine and dry sterile dressing. Leave intact. Wash: Do not get wet Tissue growth optimization: None Offload: CAM boot with plantar offloading padding. Remain nonweightbearing to right lower extremity with assistance of knee scooter. Vascular: Palpable pedal pulses bilateral. LEAS obtained and reviewed from 01/17/2023 demonstrating no significant arterial occlusive disease. She is noted to have mild arterial disease of the popliteal/SFA bilateral. On Doppler DP and PT are triphasic bilateral. Edema: No edema noted Infection: No signs of infection Pain: May take [id number] Tylenol for discomfort Host factors: DM type II with peripheral polyneuropathy, hallux limitus right foot, hallux malleus right foot, morbid obesity, equinus deformity all complicated healing potential I answered all the patient's questions. To return to the wound healing center in 1 week or call sooner if the patient has any questions or concerns.
== END 2023-07-08 23:59 | disposition home or self-care (01) ==
LOC: WC 08:45
PROVIDERS: PCP Nurse Practitioner Family; Referring Provider Family Medicine; Visit Provider Student in an Organized Health Care Education/Training Program
DX: E11.621 Type 2 diabetes mellitus with foot ulcer (principal); L97.512 Non-pressure chronic ulcer of other part of right foot with fat layer exposed; E11.42 Type 2 diabetes mellitus with diabetic polyneuropathy; E66.01 Morbid (severe) obesity due to excess calories; I10 Essential (primary) hypertension; M21.861 Other specified acquired deformities of right lower leg; M20.5X1 Other deformities of toe(s) (acquired), right foot; M20.31 Hallux varus (acquired), right foot
CPT/HCPCS: 11042; 99213; G0463

== ENCOUNTER 2023-08-02 08:45 | Outpatient (RCR) | payer OTHER, SELFPAY ==
[2023-07-09 00:14] VITALS: BP 176/95; PULSE 81; RESP 18; TEMP 35.8; BMI 41.8
[2023-07-12 08:46] VITALS: BMI 41.8
--- NOTE | 2023-07-12 08:47 | PN.PCM_ITS ---
History of Present Illness Date of Service: 07/12/23 Chief Complaint: Diabetic foot ulceration, right metatarsal-phalangeal joint, plantar surface History of Wound: This is a 58-year-old, morbidly-obese, diabetic female who presents with a large ulceration on the right great toe. The ulceration is located at the right first metatarsophalangeal joint, on the plantar surface. It has been present for approximately 4 months. According to the patient, it originated as a callus, and she ripped off the skin . She has been using Watkin's salve topically. The patient does not see a varitypist on a regular basis. Her BMI is 41.8. She denies a history of smoking. She also denies a history of myocardial infarction, congestive heart failure, cerebrovascular accident, pulmonary disease, renal disease, and thyroid disease. Most recent hemoglobin A1c was 7.0 in September,. Laboratory studies obtained recently, dated January 03, 2023, are as follows: White blood count 8.7, hemoglobin 13.5, hematocrit 41.4, platelets 308,000, sodium 138, potassium 4.0, chloride 101, BUN 14, creatinine 0.65, glucose 140, calcium 9.3, bilirubin 0.40, AST 19, ALT 24, alkaline phosphatase 107, protein 7.8, albumin 3.3. Subjective Subjective This is a 58-year-old diabetic female who presents to the wound care center today for follow-up of a plantar first metatarsal head ulceration of the right foot. She has kept dressings clean, dry, and intact to the Right foot. She has continued to offload in the CAM boot with plantar offloading padding and remaining nonweightbearing to the right lower extremity with assistance of knee scooter. She states she is trying to do better about not getting site wet. She denies any constitutional symptoms. She denies further complaints. Objective Data Objective Data Vital Signs: Vital Signs Temp Pulse Resp BP 96.4 F L 81 18 176/95 H 07/09/23 00:14 07/09/23 00:14 07/09/23 00:14 07/09/23 00:14 Weight: 110.677 kg Body Mass Index (BMI) 41.8 Physical Exam Const alert, oriented x3 and no apparent distress General Appearance: cooperative HEENT normocephalic Eyes General Eye: normal appearance of both eyes Neck General: normal visual inspection Lymph Lymphatic: no lymphadenopathy noted and no lymphedema noted Resp normal respiratory effort Cardio regular rate and regular rhythm Extremity normal capillary refill, no joint enlargement, no calf tenderness and no pedal edema Extremity Narrative: DP and PT pulses palpable bilateral. Capillary fill time to the digits less than 5 seconds bilateral. Hair growth diminished to the digits bilateral. Dermatological: Skin appears well-hydrated with normal turgor. Hyperkeratotic tissue Sub first metatarsal head of the left foot with no evidence of open wound. Sutures intact to plantar first metatarsal head right foot with skin well coapted. No signs of infection. Musculoskeletal: Muscle strength 5 of 5 age-appropriate. She does demonstrate decreased range of motion of the first metatarsophalangeal joint bilateral without pain or crepitus. Decreased range of motion of the ankle joint in dorsiflexion with the knee extended without pain or crepitus bilateral. Hammertoe deformity of the right hallux. No pain to palpation about the ulcerative site plantar first metatarsal head right foot Neuro moves all extremities Neuro Narrative: Decreased protective sensation secondary to diabetic peripheral polyneuropathy Debridement Note Debridement Note No debridement was completed: No debridement was completed today Assessment/Plan Assessment/Plan (1) Hypertension: CODE(S): I10 - Essential (primary) hypertension (2) Morbid obesity with BMI of 40.0-44.9, adult: CODE(S): E66.01 - Morbid (severe) obesity due to excess calories; Z68.41 - Body mass index [BMI] 40.0-44.9, adult (3) Hallux malleus of right foot: CODE(S): M20.31 - Hallux varus (acquired), right foot (4) Type 2 diabetes mellitus with foot ulcer: CODE(S): E11.621 - Type 2 diabetes mellitus with foot ulcer; L97.509 - Non-pressure chronic ulcer of other part of unspecified foot with unspecified severity (5) Diabetes mellitus with diabetic polyneuropathy: CODE(S): E11.42 - Type 2 diabetes mellitus with diabetic polyneuropathy (6) Acquired hallux limitus of right foot: CODE(S): M20.5X1 - Other deformities of toe(s) (acquired), right foot (7) Non-pressure chronic ulcer of other part of right foot with fat layer exposed: CODE(S): L97.512 - Non-pressure chronic ulcer of other part of right foot with fat layer exposed (8) Gastrocnemius equinus of right lower extremity: CODE(S): M21.861 - Other specified acquired deformities of right lower leg PLAN: Plan Patient seen and evaluated. Patient was weight bearing in CAM boot with plantar offloading padding today I have reviewed the LEAS performed 01/17/2023 demonstrating: Left foot triphasic DP and PT on Doppler; Indices left foot PT- 1.05. DP 1.03, Digit 0.91; right foot triphasic DP and PT on Doppler; Indices foot PT 1.10, DP 1.16, digit noncompressible. PVR diminished at ankle and digit on left with noncompressible digit right foot. Impression no evidence of significant occlusive arterial disease. Reviewed diagnostic data from 01/17/2023 demonstrating WBC of 8.7 Radiographic imaging obtained 01/17/2023 demonstrating no evidence of osteomyelitis. I have reviewed this imaging and concur with the radiographic read. Updated radiograph of the right foot ordered 03/29/2023, radiograph demonstrates no signs of osteomyelitis. I have reviewed her culture results which were obtained 01/17/2023 demonstrating: Providencia rettgeri, Staph aureus, Stap agalactaie, and Kocuria kristinae. She was prescribed Augmentin [address] Omar MD. 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 She did machine operator picker antibiotic and has completed this antibiotic course. Following debridement cultures were obtained 03/01/23 due to her continued significant drainage. She was empirically started on oral doxycycline 100 mg p.o. twice daily x14 days and oral ciprofloxacin 500 mg p.o. twice daily x14 days. She states that she picked up oral abx and started on 03/08/23. Culture results demonstrate PsA, Providencia rettgeri, corynebacterium jeikeium, Staphylococcus cohnii urealyti, and anaerobic cocci. 03/22/2023 she completed antibiotic course and due to patient leaving town antibiotic course was extended. She will finished oral abx 04/05/23. She was instructed to stay off feet as much as possible to continue to aid in pressure reduction to the ulcerative site. Rx for knee scooter was written 03/29/23. She states she did get the knee scooter is using this to remain non- weight bearing to the right foot. Ulceration demonstrated some macerated skin secondary to getting wet. Sutures currently intact. Discussed that she is at risk of tearing sutures again because she gets the site wet and does not stay off the foot. Sutures intact. No signs of infection. Dressings changed today consisting of Betadine soaked Adaptic, Aquacel Ag and dry sterile dressing. She is to continue to keep dressings clean, dry, and intact to the right foot and remain offloaded in CAM boot and to be non-weight bearing to Right foot with assistance of knee scooter. Reminded her she is to remain nonweightbearing in the CAM boot for offloading with knee scooter assistance. Stressed importance of continuing knee scooter today. She was instructed to continue offloading in CAM boot for the right lower extremity with plantar offloading padding for first metatarsal head. She was instructed to remain in the CAM boot at all times and not to wear flip-flops. She may remove the boot for shower purposes and sleeping. She voices understanding of this. Discussed that pressure reduction to the site is essential for her healing status. Discussed proper diabetic diet to maintain tight glycemic control. Last A1c 09/2022 was 7.0%. Discussed continued diet and exercise along with lifestyle modification/weight loss to aid in healthy lifestyle. Discussed importance of daily foot checks. Discussed adequate protein intake to aid in wound healing. She may take Jeremy supplementation to aid in wound healing. Discussed being diabetic she is never to go barefoot and should wear closed toed shoes at all times. Discussed with her socks is considered barefoot. Encouraged shoe gear to be worn at all times. She voices understanding of this. Recommend diabetic shoes with plantar offloading padding once ulceration has healed. Discussed signs and symptoms of infection. Discussed if she notices redness about the ulcerative site that moves to the top of the foot and up the foot, purulent drainage from the wound site, increasing foul odor, or if she experiences fever greater than 101 degree, nausea, vomiting, chills that these are signs of a progressing infection and she should report to the ED for IV antibiotics. She voices understanding of this today. The following work up and care recommendations were made: Dressing: Betadine and dry sterile dressing. Leave intact. Wash: Do not get wet Tissue growth optimization: None Offload: CAM boot with plantar offloading padding. Remain nonweightbearing to right lower extremity with assistance of knee scooter. Vascular: Palpable pedal pulses bilateral. LEAS obtained and reviewed from 01/17/2023 demonstrating no significant arterial occlusive disease. She is noted to have mild arterial disease of the popliteal/SFA bilateral. On Doppler DP and PT are triphasic bilateral. Edema: No edema noted Infection: No signs of infection Pain: May take [id number] Tylenol for discomfort Host factors: DM type II with peripheral polyneuropathy, hallux limitus right foot, hallux malleus right foot, morbid obesity, equinus deformity all complicated healing potential I answered all the patient's questions. To return to the wound healing center in 1 week or call sooner if the patient has any questions or concerns.
[2023-07-12 09:13] VITALS: BP 165/81; PULSE 79; BMI 41.8
[2023-07-19 08:43] VITALS: BP 177/81; PULSE 82; RESP 18; TEMP 36; BMI 41.8
--- NOTE | 2023-07-19 08:51 | PN.PCM_ITS ---
History of Present Illness Date of Service: 07/19/23 Chief Complaint: Diabetic foot ulceration, right metatarsal-phalangeal joint, plantar surface History of Wound: This is a 58-year-old, morbidly-obese, diabetic female who presents with a large ulceration on the right great toe. The ulceration is located at the right first metatarsophalangeal joint, on the plantar surface. It has been present for approximately 4 months. According to the patient, it originated as a callus, and she ripped off the skin . She has been using Watkin's salve topically. The patient does not see a care coordinator on a regular basis. Her BMI is 41.8. She denies a history of smoking. She also denies a history of myocardial infarction, congestive heart failure, cerebrovascular accident, pulmonary disease, renal disease, and thyroid disease. Most recent hemoglobin A1c was 7.0 in September,. Laboratory studies obtained recently, dated January 03, 2023, are as follows: White blood count 8.7, hemoglobin 13.5, hematocrit 41.4, platelets 308,000, sodium 138, potassium 4.0, chloride 101, BUN 14, creatinine 0.65, glucose 140, calcium 9.3, bilirubin 0.40, AST 19, ALT 24, alkaline phosphatase 107, protein 7.8, albumin 3.3. Subjective Subjective This is a 58-year-old diabetic female who presents to the wound care center today for follow-up of a plantar first metatarsal head ulceration of the right foot. She has kept dressings clean, dry, and intact to the Right foot. She has continued to offload in the CAM boot with plantar offloading padding and remaining nonweightbearing to the right lower extremity with assistance of knee scooter. She states she has done a better job about not getting site wet. She denies any constitutional symptoms. She denies further complaints. Objective Data Objective Data Vital Signs: Vital Signs Temp Pulse Resp BP O2 Del Method 96.8 F L 82 18 177/81 H Room Air 07/19/23 08:43 07/19/23 08:43 07/19/23 08:43 07/19/23 08:43 07/19/23 08:43 Oxygen Delivery Method Room Air Weight: 110.677 kg Body Mass Index (BMI) 41.8 Physical Exam Const alert, oriented x3 and no apparent distress General Appearance: cooperative HEENT normocephalic Eyes General Eye: normal appearance of both eyes Neck General: normal visual inspection Lymph Lymphatic: no lymphadenopathy noted and no lymphedema noted Resp normal respiratory effort Cardio regular rate and regular rhythm Extremity normal capillary refill, no joint enlargement, no calf tenderness and no pedal edema Extremity Narrative: DP and PT pulses palpable bilateral. Capillary fill time to the digits less than 5 seconds bilateral. Hair growth diminished to the digits bilateral. Dermatological: Skin appears well-hydrated with normal turgor. Hyperkeratotic tissue Sub first metatarsal head of the left foot with no evidence of open wound. Sutures intact to plantar first metatarsal head right foot with skin well coapted. No signs of infection. Musculoskeletal: Muscle strength 5 of 5 age-appropriate. She does demonstrate decreased range of motion of the first metatarsophalangeal joint bilateral without pain or crepitus. Decreased range of motion of the ankle joint in dorsiflexion with the knee extended without pain or crepitus bilateral. Hammertoe deformity of the right hallux. No pain to palpation about the ulcerative site plantar first metatarsal head right foot Neuro moves all extremities Neuro Narrative: Decreased protective sensation secondary to diabetic peripheral polyneuropathy Debridement Note Debridement Note No debridement was completed: No debridement was completed today Post-Debridement Measurements and Additional Note: Post-Debridement Measurements/Treatment - Nurse 1 - General Ulcer Assessment Start: 07/12/23 08:46 Freq: Status: Active Protocol: [email or web address].[email or web address] Activity Type Activity Date Activity User E-sign Co-sign Detail Recorded Client Recorded Date Recorded By Document 07/12/23 08:46 KW Desktop 07/12/23 08:52 KW Document 07/12/23 09:13 KW Desktop 07/12/23 09:14 KW Document 07/19/23 08:43 KW Desktop 07/19/23 08:47 KW 07/12/23 07/12/23 07/19/23 08:46 09:13 08:43 - Today's Visit Information Type of service Follow-up Visit Follow-up Visit (Physician/POULTRY FARM LABORER (Physician/POULTRY FARM LABORER ) ) Arrival Mode Ambulatory Ambulatory Patient Identification Verified (Name & Yes Yes ) Height and Weight Body Mass Index (BMI) 41.8 41.8 41.8 BMI Classification Obese Obese Obese Vital Signs Temperature (97.8 F-99.1 F) 96.8 F L Temperature Source Temporal Pulse Rate (60-100) 79 82 Pulse Location Monitor Monitor Respiratory Rate (12-18) 18 Respiratory rate source Observation Oxygen Delivery Method Room Air Blood Pressure (90/60-120/80) 165/81 H 177/81 H Blood Pressure Mean (mm Hg) 109 113 Source Monitor Monitor Position Semi-Fowlers Sitting Blood Pressure Location Left Arm Left Arm History Since Last Visit- (Skip if this is Patient's initial visit) Have you changed medications since your No No last visit? Any new allergies or adverse reactions No No Had a fall/change in ADL's that may No No increase risk of falls Signs or symptoms of abuse and/or No No neglect since last visit Have you been in the hospital since your No No last visit? Has dressing in place as prescribed Yes Yes Has compression in place as prescribed N/A No Has offloadiing in place as prescribed Yes Yes Experienced any changes in pain level or No management Left Footwear Regular Shoe Regular Shoe Right Footwear Removable Cast Removable Cast Walker/Walking Walker/Walking Boot Boot Pain Scale: 0-10 Numeric Is Patient Pain Free? Yes Yes Yes - Nurse 1 - General Ulcer Measurement Start: 07/12/23 08:46 Freq: Status: Active Protocol: Activity Type Activity Date Activity User E-sign Co-sign Detail Recorded Client Recorded Date Recorded By Document 07/12/23 08:46 KW Desktop 07/12/23 08:52 KW Document 07/19/23 08:43 KW Desktop 07/19/23 08:47 KW 07/12/23 07/19/23 08:46 08:43 Wound Center Nurse 1 #1 right plantar foot -Exudate Amt Small Small -Exudate Type Serosanguineous Serosanguineous -Texture (Kelsie-wound Skin Appearance) Callus -Ulcer Cleansing Rinsed/ Irrigated with Saline -Wound Comment(s) sutures intact. - Nurse 3 - General Ulcer D/C NN Start: 07/12/23 08:46 Freq: Status: Active Protocol: Activity Type Activity Date Activity User E-sign Co-sign Detail Recorded Client Recorded Date Recorded By Document 07/12/23 09:10 KW Desktop 07/12/23 09:12 KW 07/12/23 09:10 Wound Care Center Nurse 3 -Primary Dressing Applied Aquacel Extra, NonAdherent Contact Layer -Primary Dressing Covered/Secured with Dry Gauze & Roll Gauze, Secured with Tape -Aquacel Extra 1 Pain Scale: 0-10 Numeric Is Patient Pain Free? Yes WC - Visit Discharge Discharge Condition Stable Ambulatory Status Ambulatory Transportation Private Auto Medication Reconcilliation completed & No provided to patient/care provider Clinical Summary of Care Provided Yes Assessment/Plan Assessment/Plan (1) Hypertension: CODE(S): I10 - Essential (primary) hypertension (2) Morbid obesity with BMI of 40.0-44.9, adult: CODE(S): E66.01 - Morbid (severe) obesity due to excess calories; Z68.41 - Body mass index [BMI] 40.0-44.9, adult (3) Hallux malleus of right foot: CODE(S): M20.31 - Hallux varus (acquired), right foot (4) Type 2 diabetes mellitus with foot ulcer: CODE(S): E11.621 - Type 2 diabetes mellitus with foot ulcer; L97.509 - Non-pressure chronic ulcer of other part of unspecified foot with unspecified severity (5) Diabetes mellitus with diabetic polyneuropathy: CODE(S): E11.42 - Type 2 diabetes mellitus with diabetic polyneuropathy (6) Acquired hallux limitus of right foot: CODE(S): M20.5X1 - Other deformities of toe(s) (acquired), right foot (7) Non-pressure chronic ulcer of other part of right foot with fat layer exposed: CODE(S): L97.512 - Non-pressure chronic ulcer of other part of right foot with fat layer exposed (8) Gastrocnemius equinus of right lower extremity: CODE(S): M21.861 - Other specified acquired deformities of right lower leg PLAN: Plan Patient seen and evaluated. Patient was weight bearing in CAM boot with plantar offloading padding today I have reviewed the LEAS performed 01/17/2023 demonstrating: Left foot triphasic DP and PT on Doppler; Indices left foot PT- 1.05. DP 1.03, Digit 0.91; right foot triphasic DP and PT on Doppler; Indices foot PT 1.10, DP 1.16, digit noncompressible. PVR diminished at ankle and digit on left with noncompressible digit right foot. Impression no evidence of significant occlusive arterial disease. Reviewed diagnostic data from 01/17/2023 demonstrating WBC of 8.7 Radiographic imaging obtained 01/17/2023 demonstrating no evidence of osteomyelitis. I have reviewed this imaging and concur with the radiographic read. Updated radiograph of the right foot ordered 03/29/2023, radiograph demonstrates no signs of osteomyelitis. I have reviewed her culture results which were obtained 01/17/2023 demonstrating: Providencia rettgeri, Staph aureus, Stap agalactaie, and Kocuria kristinae. She was prescribed Augmentin [address] Omar MD. 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 She did poultry picker antibiotic and has completed this antibiotic course. Following debridement cultures were obtained 03/01/23 due to her continued significant drainage. She was empirically started on oral doxycycline 100 mg p.o. twice daily x14 days and oral ciprofloxacin 500 mg p.o. twice daily x14 days. She states that she picked up oral abx and started on 03/08/23. Culture results demonstrate PsA, Providencia rettgeri, corynebacterium jeikeium, Staphylococcus cohnii urealyti, and anaerobic cocci. 03/22/2023 she completed antibiotic course and due to patient leaving town antibi otic course was extended. She finished oral abx 04/05/23. She was instructed to stay off feet as much as possible to continue to aid in pressure reduction to the ulcerative site. Rx for knee scooter was written 03/29/23. She states she did get the knee scooter is using this to remain non- weight bearing to the right foot. Ulceration demonstrated some macerated skin secondary to getting wet at last visit, this has improved today. Sutures currently intact. Discussed that she is at risk of tearing sutures again because she gets the site wet and does not stay off the foot. Sutures intact. No signs of infection. Dressings changed today consisting of SuperAbsorb and Duoderm and dry sterile dressing. She is to continue to keep dressings clean, dry, and intact to the right foot and remain offloaded in CAM boot and to be non-weight bearing to Right foot with assistance of knee scooter. Discussed removing sutures at next visit. Reminded her she is to remain nonweightbearing in the CAM boot for offloading with knee scooter assistance. Stressed importance of continuing knee scooter today. She was instructed to continue offloading in CAM boot for the right lower extremity with plantar offloading padding for first metatarsal head. She was instructed to remain in the CAM boot at all times and not to wear flip-flops. She may remove the boot for shower purposes and sleeping. She voices understanding of this. Discussed that pressure reduction to the site is essential for her healing status. Discussed proper diabetic diet to maintain tight glycemic control. Last A1c 09/2022 was 7.0%. Discussed continued diet and exercise along with lifestyle modification/weight loss to aid in healthy lifestyle. Discussed importance of daily foot checks. Discussed adequate protein intake to aid in wound healing. She may take Jeremy supplementation to aid in wound healing. Discussed being diabetic she is never to go barefoot and should wear closed toed shoes at all times. Discussed with her socks is considered barefoot. Encouraged shoe gear to be worn at all times. She voices understanding of this. Recommend diabetic shoes with plantar offloading padding once ulceration has healed. Discussed signs and symptoms of infection. Discussed if she notices redness about the ulcerative site that moves to the top of the foot and up the foot, purulent drainage from the wound site, increasing foul odor, or if she experiences fever greater than 101 degree, nausea, vomiting, chills that these are signs of a progressing infection and she should report to the ED for IV antibiotics. She voices understanding of this today. The following work up and care recommendations were made: Dressing: Betadine and dry sterile dressing. Leave intact. Wash: Do not get wet Tissue growth optimization: None Offload: CAM boot with plantar offloading padding. Remain nonweightbearing to right lower extremity with assistance of knee scooter. Vascular: Palpable pedal pulses bilateral. LEAS obtained and reviewed from 01/17/2023 demonstrating no significant arterial occlusive disease. She is noted to have mild arterial disease of the popliteal/SFA bilateral. On Doppler DP and PT are triphasic bilateral. Edema: No edema noted Infection: No signs of infection Pain: May take [id number] Tylenol for discomfort Host factors: DM type II with peripheral polyneuropathy, hallux limitus right fo ot, hallux malleus right foot, morbid obesity, equinus deformity all complicated healing potential I answered all the patient's questions. To return to the wound healing center in 1 week or call sooner if the patient has any questions or concerns.
--- NOTE | 2023-07-26 08:39 | PN.PCM_ITS ---
History of Present Illness Date of Service: 07/26/23 Chief Complaint: Diabetic foot ulceration, right metatarsal-phalangeal joint, plantar surface History of Wound: This is a 58-year-old, morbidly-obese, diabetic female who presents with a large ulceration on the right great toe. The ulceration is located at the right first metatarsophalangeal joint, on the plantar surface. It has been present for approximately 4 months. According to the patient, it originated as a callus, and she ripped off the skin . She has been using Watkin's salve topically. The patient does not see a can line examiner on a regular basis. Her BMI is 41.8. She denies a history of smoking. She also denies a history of myocardial infarction, congestive heart failure, cerebrovascular accident, pulmonary disease, renal disease, and thyroid disease. Most recent hemoglobin A1c was 7.0 in September,. Laboratory studies obtained recently, dated January 03, 2023, are as follows: White blood count 8.7, hemoglobin 13.5, hematocrit 41.4, platelets 308,000, sodium 138, potassium 4.0, chloride 101, BUN 14, creatinine 0.65, glucose 140, calcium 9.3, bilirubin 0.40, AST 19, ALT 24, alkaline phosphatase 107, protein 7.8, albumin 3.3. Subjective Subjective This is a 58-year-old diabetic female who presents to the wound care center today for follow-up of a plantar first metatarsal head ulceration of the right foot. She has attempted to kept dressings clean, dry, and intact to the Right foot, but sites are getting wet. She has continued to offload in the CAM boot with plantar offloading padding and remaining nonweightbearing to the right lower extremity with assistance of knee scooter when out doors. She is walking in [employer] boot inside house. She denies any constitutional symptoms. She denies further complaints. Objective Data Objective Data Vital Signs: Vital Signs Temp Pulse Resp BP O2 Del Method 96.8 F L 82 18 177/81 H Room Air 07/19/23 08:43 07/19/23 08:43 07/19/23 08:43 07/19/23 08:43 07/19/23 08:43 Oxygen Delivery Method Room Air Weight: 110.677 kg Body Mass Index (BMI) 41.8 Physical Exam Const alert, oriented x3 and no apparent distress General Appearance: cooperative HEENT normocephalic Eyes General Eye: normal appearance of both eyes Neck General: normal visual inspection Lymph Lymphatic: no lymphadenopathy noted and no lymphedema noted Resp normal respiratory effort Cardio regular rate and regular rhythm Extremity normal capillary refill, no joint enlargement, no calf tenderness and no pedal edema Extremity Narrative: DP and PT pulses palpable bilateral. Capillary fill time to the digits less than 5 seconds bilateral. Hair growth diminished to the digits bilateral. Dermatological: Skin appears well-hydrated with normal turgor. Hyperkeratotic tissue Sub first metatarsal head of the left foot with no evidence of open wound. Sutures intact to plantar first metatarsal head right foot with macerated tissue and ruptured sutures. No signs of infection. Musculoskeletal: Muscle strength 5 of 5 age-appropriate. She does demonstrate decreased range of motion of the first metatarsophalangeal joint bilateral without pain or crepitus. Decreased range of motion of the ankle joint in dorsiflexion with the knee extended without pain or crepitus bilateral. Hammertoe deformity of the right hallux. No pain to palpation about the ulcerative site plantar first metatarsal head right foot Neuro moves all extremities Neuro Narrative: Decreased protective sensation secondary to diabetic peripheral polyneuropathy Debridement Note Debridement Note Wound debrided: Subfirst metatarsal head right foot Laterality: Right Wound Grade/Stage: Nichols stage I Type of Debridement: Excisional debridement Anesthesia Used: 5% Lidocaine Gel Depth: Down to and including healthy tissue and in the subcutaneous layer Percentage of wound debrided: 100 Instrument Used: #15 blade Tissue Removed: Fibrous, devitalized subcutaneous, biofilm, slough Severity: Fat Layer Exposed Amount of bleeding with debridement: Mild Bleeding Controlled with: Compression and gauze Patient tolerated procedure: Patient tolerated procedure well Post-Debridement Measurements and Additional Note: Post-Debridement Measurements/Treatment RADHA - Nurse 1 - General Ulcer Assessment Start: 07/12/23 08:46 Freq: Status: Active Protocol: JAXSON Activity Type Activity Date Activity User E-sign Co-sign Detail Recorded Client Recorded Date Recorded By Document 07/12/23 08:46 KW Desktop 07/12/23 08:52 KW Document 07/12/23 09:13 KW Desktop 07/12/23 09:14 KW Document 07/19/23 08:43 KW Desktop 07/19/23 08:47 KW 07/12/23 07/12/23 07/19/23 08:46 09:13 08:43 - Today's Visit Information Type of service Follow-up Visit Follow-up Visit (Physician/VETERINARY PRACTITIONER (Physician/VETERINARY PRACTITIONER ) ) Arrival Mode Ambulatory Ambulatory Patient Identification Verified (Name & Yes Yes ) Height and Weight Body Mass Index (BMI) 41.8 41.8 41.8 BMI Classification Obese Obese Obese Vital Signs Temperature (97.8 F-99.1 F) 96.8 F L Temperature Source Temporal Pulse Rate (60-100) 79 82 Pulse Location Monitor Monitor Respiratory Rate (12-18) 18 Respiratory rate source Observation Oxygen Delivery Method Room Air Blood Pressure (90/60-120/80) 165/81 H 177/81 H Blood Pressure Mean (mm Hg) 109 113 Source Monitor Monitor Position Semi-Fowlers Sitting Blood Pressure Location Left Arm Left Arm History Since Last Visit- (Skip if this is Patient's initial visit) Have you changed medications since your No No last visit? Any new allergies or adverse reactions No No Had a fall/change in ADL's that may No No increase risk of falls Signs or symptoms of abuse and/or No No neglect since last visit Have you been in the hospital since your No No last visit? Has dressing in place as prescribed Yes Yes Has compression in place as prescribed N/A No Has offloadiing in place as prescribed Yes Yes Experienced any changes in pain level or No management Left Footwear Regular Shoe Regular Shoe Right Footwear Removable Cast Removable Cast Walker/Walking Walker/Walking Boot Boot Pain Scale: 0-10 Numeric Is Patient Pain Free? Yes Yes Yes - Nurse 1 - General Ulcer Measurement Start: 07/12/23 08:46 Freq: Status: Active Protocol: Activity Type Activity Date Activity User E-sign Co-sign Detail Recorded Client Recorded Date Recorded By Document 07/12/23 08:46 KW Desktop 07/12/23 08:52 KW Document 07/19/23 08:43 KW Desktop 07/19/23 08:47 KW 07/12/23 07/19/23 08:46 08:43 Wound Center Nurse 1 #1 right plantar foot -Exudate Amt Small Small -Exudate Type Serosanguineous Serosanguineous -Texture (Kelsie-wound Skin Appearance) Callus -Ulcer Cleansing Rinsed/ Irrigated with Saline -Wound Comment(s) sutures intact. WC - Nurse 3 - General Ulcer D/C NN Start: 07/12/23 08:46 Freq: Status: Active Protocol: Activity Type Activity Date Activity User E-sign Co-sign Detail Recorded Client Recorded Date Recorded By Document 07/12/23 09:10 KW Desktop 07/12/23 09:12 KW 07/12/23 09:10 Wound Care Center Nurse 3 -Primary Dressing Applied Aquacel Extra, NonAdherent Contact Layer -Primary Dressing Covered/Secured with Dry Gauze & Roll Gauze, Secured with Tape -Aquacel Extra 1 Pain Scale: 0-10 Numeric Is Patient Pain Free? Yes WC - Visit Discharge Discharge Condition Stable Ambulatory Status Ambulatory Transportation Private Auto Medication Reconcilliation completed & No provided to patient/care provider Clinical Summary of Care Provided Yes Assessment/Plan Assessment/Plan (1) Hypertension: CODE(S): I10 - Essential (primary) hypertension (2) Morbid obesity with BMI of 40.0-44.9, adult: CODE(S): E66.01 - Morbid (severe) obesity due to excess calories; Z68.41 - Body mass index [BMI] 40.0-44.9, adult (3) Hallux malleus of right foot: CODE(S): M20.31 - Hallux varus (acquired), right foot (4) Type 2 diabetes mellitus with foot ulcer: CODE(S): E11.621 - Type 2 diabetes mellitus with foot ulcer; L97.509 - Non-pressure chronic ulcer of other part of unspecified foot with unspecified severity (5) Diabetes mellitus with diabetic polyneuropathy: CODE(S): E11.42 - Type 2 diabetes mellitus with diabetic polyneuropathy (6) Acquired hallux limitus of right foot: CODE(S): M20.5X1 - Other deformities of toe(s) (acquired), right foot (7) Non-pressure chronic ulcer of other part of right foot with fat layer exposed: CODE(S): L97.512 - Non-pressure chronic ulcer of other part of right foot with fat layer exposed (8) Gastrocnemius equinus of right lower extremity: CODE(S): M21.861 - Other specified acquired deformities of right lower leg PLAN: Plan Patient seen and evaluated. Patient was weight bearing in CAM boot with plantar offloading padding today I have reviewed the LEAS performed 01/17/2023 demonstrating: Left foot triphasic DP and PT on Doppler; Indices left foot PT- 1.05. DP 1.03, Digit 0.91; right foot triphasic DP and PT on Doppler; Indices foot PT 1.10, DP 1.16, digit noncompressible. PVR diminished at ankle and digit on left with noncompressible digit right foot. Impression no evidence of significant occlusive arterial disease. I have reviewed her culture results which were obtained 01/17/2023 demonstrating: Providencia rettgeri, Staph aureus, Stap agalactaie, and Kocuria kristinae. She was prescribed Augmentin [address] Omar MD. Patient however states she never realized prescription was phoned in for her to vegetable picker and had not been taking the antibiotic. She did vegetable picker antibiotic and has completed this antibiotic course. Following debridement cultures were obtained 03/01/23 due to her continued significant drainage. She was empirically started on oral doxycycline 100 mg p.o. twice daily x14 days and oral ciprofloxacin 500 mg p.o. twice daily x14 days. She states that she picked up oral abx and started on 03/08/23. Culture results demonstrate PsA, Providencia rettgeri, corynebacterium jeikeium, Staphylococcus cohnii urealyti, and anaerobic cocci. 03/22/2023 she completed antibiotic course and due to patient leaving town antibiotic course was extended. She finished oral abx 04/05/23. She was instructed to stay off feet as much as possible to continue to aid in pressure reduction to the ulcerative site. Rx for knee scooter was written 03/29/23. She states she did get the knee scooter is using this to remain non- weight bearing to the right foot. She is not using this at all times. Ulceration demonstrated some macerated skin secondary to getting wet at last visit, this has improved today. Sutures currently intact. Discussed that she is at risk of tearing sutures again because she gets the site wet and does not stay off the foot. Sutures ruptured today with significant maceration. No signs of infection. Sutures removed today atraumatically. Macerated tissue debrided today in addition to wound debridement as stated in clinical panel above. Ulceration measures 0.4 cm x 0.5 cm x 0.1 cm. Cultures obtained today, 07/26/2023, awaiting results. Trey's wet-to-dry dressing was applied to the wound and she is instructed to change this daily. Reminded her she is to remain nonweightbearing in the CAM boot for offloading with knee scooter assistance. Stressed importance of continuing knee scooter again today. She was instructed to continue offloading in CAM boot for the right lower extremity with plantar offloading padding for first metatarsal head. She was instructed to remain in the CAM boot at all times and not to wear flip-flops. She may remove the boot for shower purposes and sleeping. She voices understanding of this. Discussed that pressure reduction to the site is essential for her healing status. Discussed proper diabetic diet to maintain tight glycemic control. Last A1c 09/2022 was 7.0%. Discussed continued diet and exercise along with lifestyle modification/weight loss to aid in healthy lifestyle. Discussed importance of daily foot checks. Discussed adequate protein intake to aid in wound healing. She may take Jeremy supplementation to aid in wound healing. Discussed being diabetic she is never to go barefoot and should wear closed toed shoes at all times. Discussed with her socks is considered barefoot. Encouraged shoe gear to be worn at all times. She voices understanding of this. Recommend diabetic shoes with plantar offloading padding once ulceration has healed. Discussed signs and symptoms of infection. Discussed if she notices redness about the ulcerative site that moves to the top of the foot and up the foot, purulent drainage from the wound site, increasing foul odor, or if she experiences fever greater than 101 degree, nausea, vomiting, chills that these are signs of a progressing infection and she should report to the ED for IV antibiotics. She voices understanding of this today. The following work up and care recommendations were made: Dressing: Trey's wet to dry dressing. Change daily. Wash: Soap and water Tissue growth optimization: None Offload: CAM boot with plantar offloading padding. Remain nonweightbearing to right lower extremity with assistance of knee scooter. Vascular: Palpable pedal pulses bilateral. LEAS obtained and reviewed from 01/17/2023 demonstrating no significant arterial occlusive disease. She is noted to have mild arterial disease of the popliteal/SFA bilateral. On Doppler DP and PT are triphasic bilateral. Edema: No edema noted Infection: No signs of infection Pain: May take [id number] Tylenol for discomfort Radiographs: 01/17/23 demonstrate no evidence of osteomyelitis; 03/20/23 no eviden ce of osteomyelitis Host factors: DM type II with peripheral polyneuropathy, hallux limitus right foot, hallux malleus right foot, morbid obesity, equinus deformity all complicated healing potential I answered all the patient's questions. To return to the wound healing center in 1 week or call sooner if the patient has any questions or concerns.
[2023-07-26 08:45] VITALS: BP 130/76; PULSE 82; RESP 18; TEMP 35.8; BMI 41.8
[2023-08-02 08:41] VITALS: BP 169/77; PULSE 79; RESP 16; TEMP 35.5; BMI 41.8
--- NOTE | 2023-08-02 08:47 | PCM.WC.PN ---
History of Present Illness Date of Service: 08/02/23 Chief Complaint: Diabetic foot ulceration, right metatarsal-phalangeal joint, plantar surface History of Wound: This is a 58-year-old, morbidly-obese, diabetic female who presents with a large ulceration on the right great toe. The ulceration is located at the right first metatarsophalangeal joint, on the plantar surface. It has been present for approximately 4 months. According to the patient, it originated as a callus, and she ripped off the skin . She has been using Watkin's salve topically. The patient does not see a shop assistant on a regular basis. Her BMI is 41.8. She denies a history of smoking. She also denies a history of myocardial infarction, congestive heart failure, cerebrovascular accident, pulmonary disease, renal disease, and thyroid disease. Most recent hemoglobin A1c was 7.0 in September,. Laboratory studies obtained recently, dated January 03, 2023, are as follows: White blood count 8.7, hemoglobin 13.5, hematocrit 41.4, platelets 308,000, sodium 138, potassium 4.0, chloride 101, BUN 14, creatinine 0.65, glucose 140, calcium 9.3, bilirubin 0.40, AST 19, ALT 24, alkaline phosphatase 107, protein 7.8, albumin 3.3. Subjective Subjective This is a 58-year-old diabetic female who presents to the wound care center today for follow-up of a plantar first metatarsal head ulceration of the right foot. She has attempted to kept dressings clean, dry, and intact to the Right foot, but sites were getting wet and sutures had torn through. She has continued to offload in the CAM boot with plantar offloading padding and remaining nonweightbearing to the right lower extremity with assistance of knee scooter when out doors. She is walking in CAM boot inside house. She denies any constitutional symptoms. She denies further complaints. Objective Data Objective Data Vital Signs: Vital Signs Temp Pulse Resp BP O2 Del Method 95.9 F L 79 16 169/77 H Room Air 08/02/23 08:41 08/02/23 08:41 08/02/23 08:41 08/02/23 08:41 08/02/23 08:41 Oxygen Delivery Method Room Air Weight: 110.677 kg Body Mass Index (BMI) 41.8 Lab / Micro Data Micro: Microbiology 07/26/23 09:00 Wound - Right Foot Gram Stain - Final 07/26/23 09:00 Wound - Right Foot Wound Culture - Preliminary Streptococcus agalactiae (B) Gram positive ragini Corynebacterium amycolatum/xer Staphylococcus simulans Staphylococcus sciuri 07/26/23 09:00 Wound - Right Foot Anaerobic Culture - Final Anaerobic cocci Physical Exam Const alert, oriented x3 and no apparent distress General Appearance: cooperative HEENT normocephalic Eyes General Eye: normal appearance of both eyes Neck General: normal visual inspection Lymph Lymphatic: no lymphadenopathy noted and no lymphedema noted Resp normal respiratory effort Cardio regular rate and regular rhythm Extremity normal capillary refill, no joint enlargement, no calf tenderness and no pedal edema Extremity Narrative: DP and PT pulses palpable bilateral. Capillary fill time to the digits less than 5 seconds bilateral. Hair growth diminished to the digits bilateral. Dermatological: Skin appears well-hydrated with normal turgor. Hyperkeratotic tissue Sub first metatarsal head with small ulceration with granular tissue. No purulent drainage, no erythema, no palpable fluctuance/bogginess, no visible abscess formation, no lymphangitic streaking, no malodor. Musculoskeletal: Muscle strength 5 of 5 age-appropriate. She does demonstrate decreased range of motion of the first metatarsophalangeal joint bilateral without pain or crepitus. Decreased range of motion of the ankle joint in dorsiflexion with the knee extended without pain or crepitus bilateral. Hammertoe deformity of the right hallux. No pain to palpation about the ulcerative site plantar first metatarsal head right foot Neuro moves all extremities Neuro Narrative: Decreased protective sensation secondary to diabetic peripheral polyneuropathy Debridement Note Debridement Note No debridement was completed: No debridement was completed today Post-Debridement Measurements and Additional Note: Post-Debridement Measurements/Treatment RADHA - Nurse 1 - General Ulcer Assessment Start: 07/12/23 08:46 Freq: Status: Active Protocol: JAXSON Activity Type Activity Date Activity User E-sign Co-sign Detail Recorded Client Recorded Date Recorded By Document 07/12/23 08:46 KW Desktop 07/12/23 08:52 KW Document 07/12/23 09:13 KW Desktop 07/12/23 09:14 KW Document 07/19/23 08:43 KW Desktop 07/19/23 08:47 KW Document 07/26/23 08:45 KW Desktop 07/26/23 08:52 KW Document 08/02/23 08:41 MW Desktop 08/02/23 08:47 MW 07/12/23 07/12/23 07/19/23 08:46 09:13 08:43 WC - Today's Visit Information Type of service Follow-up Visit Follow-up Visit (Physician/[employer] (Physician/[employer] ) ) Arrival Mode Ambulatory Ambulatory Transfer Assistance Accompanied by Patient Identification Verified (Name & Yes Yes ) Patient Requires Transmission-Based Precautions Safety Precautions Height and Weight Body Mass Index (BMI) 41.8 41.8 41.8 BMI Classification Obese Obese Obese Vital Signs Temperature (97.8 F-99.1 F) 96.8 F L Temperature Source Temporal Pulse Rate (60-100) 79 82 Pulse Location Monitor Monitor Respiratory Rate (12-18) 18 Respiratory rate source Observation Oxygen Delivery Method Room Air Blood Pressure (90/60-120/80) 165/81 H 177/81 H Blood Pressure Mean (mm Hg) 109 113 Source Monitor Monitor Position Semi-Fowlers Sitting Blood Pressure Location Left Arm Left Arm History Since Last Visit- (Skip if this is Patient's initial visit) Have you changed medications since your No No last visit? Any new allergies or adverse reactions No No Had a fall/change in ADL's that may No No increase risk of falls Signs or symptoms of abuse and/or No No neglect since last visit Have you been in the hospital since your No No last visit? Has dressing in place as prescribed Yes Yes Has compression in place as prescribed N/A No Has offloadiing in place as prescribed Yes Yes Experienced any changes in pain level or No management Left Footwear Regular Shoe Regular Shoe Right Footwear Removable Cast Removable Cast Walker/Walking Walker/Walking Boot Boot Pain Scale: 0-10 Numeric Is Patient Pain Free? Yes Yes Yes 07/26/23 08/02/23 08:45 08:41 WC - Today's Visit Information Type of service Follow-up Visit Follow-up Visit (Physician/[employer] (Physician/[employer] ) ) Arrival Mode Ambulatory Ambulatory Transfer Assistance None Accompanied by self Patient Identification Verified (Name & Yes Yes ) Patient Requires Transmission-Based No Precautions Safety Precautions NA Height and Weight Body Mass Index (BMI) 41.8 41.8 BMI Classification Obese Obese Vital Signs Temperature (97.8 F-99.1 F) 96.5 F L 95.9 F L Temperature Source Temporal Temporal Pulse Rate (60-100) 82 79 Pulse Location Monitor Monitor Respiratory Rate (12-18) 18 16 Respiratory rate source Observation Observation Oxygen Delivery Method Room Air Room Air Blood Pressure (90/60-120/80) 130/76 H 169/77 H Blood Pressure Mean (mm Hg) 94 107 Source Monitor Monitor Position Sitting Sitting Blood Pressure Location Left Arm Right Arm History Since Last Visit- (Skip if this is Patient's initial visit) Have you changed medications since your No No last visit? Any new allergies or adverse reactions No No Had a fall/change in ADL's that may No No increase risk of falls Signs or symptoms of abuse and/or No No neglect since last visit Have you been in the hospital since your No No last visit? Has dressing in place as prescribed Yes Yes Has compression in place as prescribed Yes Yes Has offloadiing in place as prescribed Yes N/A Experienced any changes in pain level or No No management Left Footwear Regular Shoe Regular Shoe Right Footwear Removable Cast Removable Cast Walker/Walking Walker/Walking Boot Boot Pain Scale: 0-10 Numeric Is Patient Pain Free? Yes Yes WC - Nurse 1 - General Ulcer Measurement Start: 07/12/23 08:46 Freq: Status: Active Protocol: Activity Type Activity Date Activity User E-sign Co-sign Detail Recorded Client Recorded Date Recorded By Document 07/12/23 08:46 KW Desktop 07/12/23 08:52 KW Document 07/19/23 08:43 KW Desktop 07/19/23 08:47 KW Document 07/26/23 08:45 KW Desktop 07/26/23 08:52 KW Document 08/02/23 08:41 MW Desktop 08/02/23 08:47 MW 07/12/23 07/19/23 07/26/23 08:46 08:43 08:45 Wound Center Nurse 1 #1 right plantar foot -Combined with other wound No -Current Size (cm) - Length 0.1 -Current Size (cm) - Width 0.1 -Current Size (cm) - Depth 0.1 -Total Square Cm 0.01 -Date of Last Picture (Recall this 07/26/23 field) -Photo Taken Yes -Epithelialization -Tunneling -Undermining/Tunneling -Circular Undermining -Exudate Amt Small Small Large -Exudate Type Serosanguineous Serosanguineous Serosanguineous -Wound Margin Distinct, Outline Attached -Granulation Amt -Granulation Quality -Slough/Fibrin -Necrosis Amt -Texture (Kelsie-wound Skin Appearance) Callus Assessed -Moisture (Kelsie-wound Skin Appearance) Assessed, Maceration -Color (Kelsie-wound Skin Appearance) Assessed -Temperature (Kelsie-wound Skin No Abnormality Appearance) (Pt Warm) -Tenderness on Palpation (Kelsie-wound No Skin Appearance) -Ulcer Cleansing Rinsed/ Soap and Water Irrigated with Saline -Foul Odor after Cleansing No -Anesthetic Used -Wound Comment(s) sutures intact. Lower Limb Edema Present 08/02/23 08:41 Wound Center Nurse 1 #1 right plantar foot -Combined with other wound No -Current Size (cm) - Length 0.1 -Current Size (cm) - Width 0.1 -Current Size (cm) - Depth 0.1 -Total Square Cm 0.01 -Date of Last Picture (Recall this 08/02/23 field) -Photo Taken Yes -Epithelialization None Present -Tunneling No -Undermining/Tunneling No -Circular Undermining No -Exudate Amt None Present -Exudate Type -Wound Margin Flat & Intact -Granulation Amt None Present (0 %) -Granulation Quality N/A -Slough/Fibrin Yes -Necrosis Amt Large (67-100%) -Texture (Kelsie-wound Skin Appearance) Assessed,Callus -Moisture (Kelsie-wound Skin Appearance) Assessed,Dry/ Scaly -Color (Kelsie-wound Skin Appearance) No Abnormality, Assessed -Temperature (Kelsie-wound Skin No Abnormality Appearance) (Pt Warm) -Tenderness on Palpation (Kelsie-wound No Skin Appearance) -Ulcer Cleansing Rinsed/ Irrigated with Saline -Foul Odor after Cleansing No -Anesthetic Used 5% Lidocaine Gel -Wound Comment(s) Lower Limb Edema Present No WC - Nurse 2 - General Ulcer CM Notes Start: 07/12/23 08:46 Freq: Status: Active Protocol: Activity Type Activity Date Activity User E-sign Co-sign Detail Recorded Client Recorded Date Recorded By Document 07/26/23 10:19 PL Tablet 07/26/23 10:20 PL 07/26/23 10:19 Wound Center Nurse 2 #1 right plantar foot -Time 09:00 -Correct Patient Yes -Correct Side, Site, Position Yes -Correct Procedure Yes -Procedure Performed Yes -Type of Procedure Debridement -Clinical Debridement Subcutaneous -Tissue Removed Subcutaneous -Post Debridement (cm) - Length 0.4 -Post Debridement (cm) - Width 0.5 -Post Debridement (cm) - Depth 0.1 -Total Square (Post) (cm) 0.20 -Area of Debridement (cm) - Length 0.4 -Area of Debridement (cm) - Width 0.5 -Total Square (Area) (cm) 0.20 -Tunneling No -Undermining/Tunneling No -Circular Undermining No -Wound/Ulcer Outcome Not Healed -Ulcer Cleansing Rinsed/ Irrigated with Saline -Foul Odor after Cleansing No -Bioengineered Tissue No -Bleeding Controlled with Pressure -Treatment Response Procedure Tolerated Well -Debridement - Subq, 1st 20sq cm Yes Pain Scale: 0-10 Numeric Is Patient Pain Free? Yes - Nurse 3 - General Ulcer D/C NN Start: 07/12/23 08:46 Freq: Status: Active Protocol: Activity Type Activity Date Activity User E-sign Co-sign Detail Recorded Client Recorded Date Recorded By Document 07/12/23 09:10 KW Desktop 07/12/23 09:12 KW 07/12/23 09:10 Wound Care Center Nurse 3 #1 right plantar foot -Primary Dressing Applied Aquacel Extra, NonAdherent Contact Layer -Primary Dressing Covered/Secured with Dry Gauze & Roll Gauze, Secured with Tape -Aquacel Extra 1 Pain Scale: 0-10 Numeric Is Patient Pain Free? Yes - Visit Discharge Discharge Condition Stable Ambulatory Status Ambulatory Transportation Private Auto Medication Reconcilliation completed & No provided to patient/care provider Clinical Summary of Care Provided Yes Assessment/Plan Assessment/Plan (1) Hypertension: CODE(S): I10 - Essential (primary) hypertension (2) Morbid obesity with BMI of 40.0-44.9, adult: CODE(S): E66.01 - Morbid (severe) obesity due to excess calories; Z68.41 - Body mass index [BMI] 40.0-44.9, adult (3) Hallux malleus of right foot: CODE(S): M20.31 - Hallux varus (acquired), right foot (4) Type 2 diabetes mellitus with foot ulcer: CODE(S): E11.621 - Type 2 diabetes mellitus with foot ulcer; L97.509 - Non-pressure chronic ulcer of other part of unspecified foot with unspecified severity (5) Diabetes mellitus with diabetic polyneuropathy: CODE(S): E11.42 - Type 2 diabetes mellitus with diabetic polyneuropathy (6) Acquired hallux limitus of right foot: CODE(S): M20.5X1 - Other deformities of toe(s) (acquired), right foot (7) Non-pressure chronic ulcer of other part of right foot with fat layer exposed: CODE(S): L97.512 - Non-pressure chronic ulcer of other part of right foot with fat layer exposed (8) Gastrocnemius equinus of right lower extremity: CODE(S): M21.861 - Other specified acquired deformities of right lower leg PLAN: Plan Patient seen and evaluated. Patient was weight bearing in CAM boot with plantar offloading padding today I have reviewed the LEAS performed 01/17/2023 demonstrating: Left foot triphasic DP and PT on Doppler; Indices left foot PT- 1.05. DP 1.03, Digit 0.91; right foot triphasic DP and PT on Doppler; Indices foot PT 1.10, DP 1.16, digit noncompressible. PVR diminished at ankle and digit on left with noncompressible digit right foot. Impression no evidence of significant occlusive arterial disease. I have reviewed her culture results which were obtained 01/17/2023 demonstrating: Providencia rettgeri, Staph aureus, Stap agalactaie, and Kocuria kristinae. She was prescribed Augmentin [address] Omar MD. 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 She did crab picker antibiotic and has completed this antibiotic course. Following debridement cultures were obtained 03/01/23 due to her continued significant drainage. She was empirically started on oral doxycycline 100 mg p.o. twice daily x14 days and oral ciprofloxacin 500 mg p.o. twice daily x14 days. She states that she picked up oral abx and started on 03/08/23. Culture results demonstrate PsA, Providencia rettgeri, corynebacterium jeikeium, Staphylococcus cohnii urealyti, and anaerobic cocci. 03/22/2023 she completed antibiotic course and due to patient leaving town antibiotic course was extended. She finished oral abx 04/05/23. She was instructed to stay off feet as much as possible to continue to aid in pressure reduction to the ulcerative site. Rx for knee scooter was written 03/29/23. She states she did get the knee scooter is using this to remain non-weight bearing to the right foot. She is not using this at all times. Ulceration demonstrated some macerated skin secondary to getting wet at last visit, this has improved today. Sutures currently intact. Discussed that she is at risk of tearing sutures again because she gets the site wet and does not stay off the foot. No debridement performed today. Wound is demonstrating epithelialization. Ulceration measures 0.1 cm x 0.1 cm x 0.1 cm. Cultures obtained 07/26/2023, demonstrating Streptococcus agalactiae; gram-positive rods; corynebacterium amycoiatum; Staphylococcus simulans; Staphylococcus sciuri; and anaerobic cocci. Due to positive culture she will be started on Augmentin 875 twice daily x 14 days (stop date 08/16/22) Dakin's wet-to-dry dressing was applied to the wound and she is instructed to change this daily. Reminded her she is to remain nonweightbearing in the CAM boot for offloading with knee scooter assistance. Stressed importance of continuing knee scooter again today. She was instructed to continue offloading in CAM boot for the right lower extremity with plantar offloading padding for first metatarsal head. She was instructed to remain in the CAM boot at all times and not to wear flip-flops. She may remove the boot for shower purposes and sleeping. She voices understanding of this. Discussed that pressure reduction to the site is essential for her healing status. Discussed proper diabetic diet to maintain tight glycemic control. Last A1c 09/2022 was 7.0%. Discussed continued diet and exercise along with lifestyle modification/weight loss to aid in healthy lifestyle. Discussed importance of daily foot checks. Discussed adequate protein intake to aid in wound healing. She may take Jeremy supplementation to aid in wound healing. Discussed being diabetic she is never to go barefoot and should wear closed toed shoes at all times. Discussed with her socks is considered barefoot. Encouraged shoe gear to be worn at all times. She voices understanding of this. Recommend diabetic shoes with plantar offloading padding once ulceration has healed. Discussed signs and symptoms of infection. Discussed if she notices redness about the ulcerative site that moves to the top of the foot and up the foot, purulent drainage from the wound site, increasing foul odor, or if she experiences fever greater than 101 degree, nausea, vomiting, chills that these are signs of a progressing infection and she should report to the ED for IV antibiotics. She voices understanding of this today. The following work up and care recommendations were made: Dressing: Dakin's wet to dry dressing. Change daily. Wash: Soap and water Tissue growth optimization: None Offload: CAM boot with plantar offloading padding. Remain nonweightbearing to right lower extremity with assistance of knee scooter. Vascular: Palpable pedal pulses bilateral. LEAS obtained and reviewed from 01/17/2023 demonstrating no significant arterial occlusive disease. She is noted to have mild arterial disease of the popliteal/SFA bilateral. On Doppler DP and PT are triphasic bilateral. Edema: No edema noted Infection: No signs of infection Pain: May take [id number] Tylenol for discomfort Radiographs: 01/17/23 demonstrate no evidence of osteomyelitis; 03/20/23 no evidence of osteomyelitis Host factors: DM type II with peripheral polyneuropathy, hallux limitus right foot, hallux malleus right foot, morbid obesity, equinus deformity all complicated healing potential I answered all the patient's questions. To return to the wound healing center in 1 week or call sooner if the patient has any questions or concerns.
== END 2023-08-08 23:59 | disposition home or self-care (01) ==
LOC: WC 08:45
PROVIDERS: PCP Nurse Practitioner Family; Referring Provider Family Medicine; Visit Provider Student in an Organized Health Care Education/Training Program
DX: E11.621 Type 2 diabetes mellitus with foot ulcer (principal); L97.512 Non-pressure chronic ulcer of other part of right foot with fat layer exposed; E11.42 Type 2 diabetes mellitus with diabetic polyneuropathy; E66.01 Morbid (severe) obesity due to excess calories; I10 Essential (primary) hypertension; M20.5X1 Other deformities of toe(s) (acquired), right foot; M21.861 Other specified acquired deformities of right lower leg; M20.31 Hallux varus (acquired), right foot
CPT/HCPCS: 11042; 87070; 87075; 87077; 87186; 87205; 99213; G0463

== ENCOUNTER 2023-08-09 08:35 | Outpatient (RCR) | payer OTHER, SELFPAY ==
[2023-08-09 00:46] VITALS: BP 169/77; PULSE 79; RESP 16; TEMP 35.5; BMI 41.8
[2023-08-09 08:40] VITALS: BP 189/85; PULSE 83; RESP 18; TEMP 35.1; BMI 41.8
--- NOTE | 2023-08-09 08:42 | PN.PCM_ITS ---
History of Present Illness Chief Complaint: Diabetic foot ulceration, right metatarsal-phalangeal joint, plantar surface History of Wound: This is a 58-year-old, morbidly-obese, diabetic female who presents with a large ulceration on the right great toe. The ulceration is located at the right first metatarsophalangeal joint, on the plantar surface. It has been present for approximately 4 months. According to the patient, it originated as a callus, and she ripped off the skin. She has been using Watkin's salve topically. The patient does not see a field inspector on a regular basis. Her BMI is 41.8. She denies a history of smoking. She also denies a history of myocardial infarction, congestive heart failure, cerebrovascular accident, pulmonary disease, renal disease, and thyroid disease. Most recent hemoglobin A1c was 7.0 in September,. Laboratory studies obtained recently, dated January 03, 2023, are as follows: White blood count 8.7, hemoglobin 13.5, hematocrit 41.4, platelets 308,000, sodium 138, potassium 4.0, chloride 101, BUN 14, creatinine 0.65, glucose 140, calcium 9.3, bilirubin 0.40, AST 19, ALT 24, alkaline phosphatase 107, protein 7.8, albumin 3.3. Subjective Subjective This is a 58-year-old diabetic female who presents to the wound care center today for follow-up of a plantar first metatarsal head ulceration of the right foot. She has continued to offload in the CAM boot with plantar offloading padding and remaining nonweightbearing to the right lower extremity with assistance of knee scooter when out doors. She is walking in CAM boot inside house. She denies any drainage today and has changed dressings daily. She denies any constitutional symptoms. She denies further complaints. Objective Data Objective Data Vital Signs: Vital Signs Temp Pulse Resp BP 95.9 F L 79 16 169/77 H 08/09/23 00:46 08/09/23 00:46 08/09/23 00:46 08/09/23 00:46 Weight: 110.677 kg Body Mass Index (BMI) 41.8 Physical Exam Const alert, oriented x3, no apparent distress and well nourished General Appearance: cooperative HEENT normocephalic Eyes General Eye: normal appearance of both eyes Neck General: normal visual inspection Lymph Lymphatic: no lymphadenopathy noted and no lymphedema noted Resp normal respiratory effort Cardio regular rate and regular rhythm Extremity normal capillary refill, no joint enlargement, no calf tenderness and no pedal edema Extremity Narrative: DP and PT pulses palpable bilateral. Capillary fill time to the digits less than 5 seconds bilateral. Hair growth diminished to the digits bilateral. Dermatological: Skin appears well-hydrated with normal turgor. Hyperkeratotic tissue Sub first metatarsal head with small ulceration with granular tissue. No purulent drainage, no erythema, no palpable fluctuance/bogginess, no visible abscess formation, no lymphangitic streaking, no malodor. Musculoskeletal: Muscle strength 5 of 5 age-appropriate. She does demonstrate decreased range of motion of the first metatarsophalangeal joint bilateral without pain or crepitus. Decreased range of motion of the ankle joint in dorsiflexion with the knee extended without pain or crepitus bilateral. Hammertoe deformity of the right hallux. No pain to palpation about the ulcerative site plantar first metatarsal head right foot Skin no rashes or lesions noted, skin turgor normal and no jaundice Neuro moves all extremities Neuro Narrative: Decreased protective sensation secondary to diabetic peripheral polyneuropathy Assessment/Plan Assessment/Plan (1) Non-pressure chronic ulcer of other part of right foot with fat layer exposed: CODE(S): L97.512 - Non-pressure chronic ulcer of other part of right foot with fat layer exposed (2) Acquired hallux limitus of right foot: CODE(S): M20.5X1 - Other deformities of toe(s) (acquired), right foot (3) Hallux malleus of right foot: CODE(S): M20.31 - Hallux varus (acquired), right foot (4) Type 2 diabetes mellitus with foot ulcer: CODE(S): E11.621 - Type 2 diabetes mellitus with foot ulcer; L97.509 - Non-pressure chronic ulcer of other part of unspecified foot with unspecified severity (5) Gastrocnemius equinus of right lower extremity: CODE(S): M21.861 - Other specified acquired deformities of right lower leg (6) Diabetes mellitus with diabetic polyneuropathy: CODE(S): E11.42 - Type 2 diabetes mellitus with diabetic polyneuropathy (7) Morbid obesity with BMI of 40.0-44.9, adult: CODE(S): E66.01 - Morbid (severe) obesity due to excess calories; Z68.41 - Body mass index [BMI] 40.0-44.9, adult (8) Hypertension: CODE(S): I10 - Essential (primary) hypertension PLAN: Plan Patient seen and evaluated. Patient was weight bearing in CAM boot with plantar offloading padding today I have reviewed the LEAS performed 01/17/2023 demonstrating: Left foot triphasic DP and PT on Doppler; Indices left foot PT- 1.05. DP 1.03, Digit 0.91; right foot triphasic DP and PT on Doppler; Indices foot PT 1.10, DP 1.16, digit noncompressible. PVR diminished at ankle and digit on left with noncompressible digit right foot. Impression no evidence of significant occlusive arterial disease. I have reviewed her culture results which were obtained 01/17/2023 demonstrating: Providencia rettgeri, Staph aureus, Stap agalactaie, and Kocuria kristinae. She was prescribed Augmentin [address] Omar MD. Patient however states she never realized prescription was phoned in for her to knot picker cloth and had not been taking the antibiotic. She did knot picker cloth antibiotic and has completed this antibiotic course. Following debridement cultures were obtained 03/01/23 due to her continued significant drainage. She was empirically started on oral doxycycline 100 mg p.o. twice daily x14 days and oral ciprofloxacin 500 mg p.o. twice daily x14 days. She states that she picked up oral abx and started on 03/08/23. Culture results demonstrate PsA, Providencia rettgeri, corynebacterium jeikeium, Staphylococcus cohnii urealyti, and anaerobic cocci. 03/22/2023 she completed antibiotic course and due to patient leaving town antibiotic course was extended. She finished oral abx 04/05/23. She was instructed to stay off feet as much as possible to continue to aid in pressure reduction to the ulcerative site. Rx for knee scooter was written 03/29/23. She states she did get the knee scooter is using this to remain non- weight bearing to the right foot. She is not using this at all times. Ulceration demonstrated some macerated skin secondary to getting wet at last visit, this has improved today. Sutures currently intact. Discussed that she is at risk of tearing sutures again because she gets the site wet and does not stay off the foot. No debridement performed today. Wound is demonstrating epithelialization. Ulceration measures 0.1 cm x 0.1 cm x 0.1 cm. Cultures obtained 07/26/2023, demonstrating Streptococcus agalactiae; gram- positive rods; corynebacterium amycoiatum; Staphylococcus simulans; Staphylococcus sciuri; and anaerobic cocci. Due to positive culture she will be started on Augmentin 875 twice daily x 14 days (stop date 08/16/22) Dakin's wet-to-dry dressing was applied to the wound and she is instructed to change this daily. Reminded her she is to remain nonweightbearing in the CAM boot for offloading with knee scooter assistance. Stressed importance of continuing knee scooter again today. She was instructed to continue offloading in CAM boot for the right lower extremity with plantar offloading padding for first metatarsal head. She was instructed to remain in the CAM boot at all times and not to wear flip-flops. She may remove the boot for shower purposes and sleeping. She voices understanding of this. Discussed that pressure reduction to the site is essential for her healing status. Discussed proper diabetic diet to maintain tight glycemic control. Last A1c 09/2022 was 7.0%. Discussed continued diet and exercise along with lifestyle modification/weight loss to aid in healthy lifestyle. Discussed importance of daily foot checks. Discussed adequate protein intake to aid in wound healing. She may take Jeremy supplementation to aid in wound healing. Discussed being diabetic she is never to go barefoot and should wear closed toed shoes at all times. Discussed with her socks is considered barefoot. Encouraged shoe gear to be worn at all times. She voices understanding of this. Recommend diabetic shoes with plantar offloading padding once ulceration has healed. Discussed signs and symptoms of infection. Discussed if she notices redness about the ulcerative site that moves to the top of the foot and up the foot, purulent drainage from the wound site, increasing foul odor, or if she experiences fever greater than 101 degree, nausea, vomiting, chills that these are signs of a progressing infection and she should report to the ED for IV antibiotics. She voices understanding of this today. The following work up and care recommendations were made: Dressing: Dakin's wet to dry dressing. Change daily. Wash: Soap and water Tissue growth optimization: None Offload: CAM boot with plantar offloading padding. Remain nonweightbearing to r ight lower extremity with assistance of knee scooter. Vascular: Palpable pedal pulses bilateral. LEAS obtained and reviewed from 01/17/2023 demonstrating no significant arterial occlusive disease. She is noted to have mild arterial disease of the popliteal/SFA bilateral. On Doppler DP and PT are triphasic bilateral. Edema: No edema noted Infection: No signs of infection Pain: May take [id number] Tylenol for discomfort Radiographs: 01/17/23 demonstrate no evidence of osteomyelitis; 03/20/23 no evidence of osteomyelitis Host factors: DM type II with peripheral polyneuropathy, hallux limitus right foot, hallux malleus right foot, morbid obesity, equinus deformity all complicated healing potential I answered all the patient's questions. To return to the wound healing center in 1 week or call sooner if the patient has any questions or concerns.
== END 2023-09-06 23:59 | disposition home or self-care (01) ==
LOC: WC 08:35
PROVIDERS: PCP Nurse Practitioner Family; Referring Provider Family Medicine; Visit Provider Student in an Organized Health Care Education/Training Program
DX: E11.621 Type 2 diabetes mellitus with foot ulcer (principal); L97.512 Non-pressure chronic ulcer of other part of right foot with fat layer exposed; E11.42 Type 2 diabetes mellitus with diabetic polyneuropathy; E66.01 Morbid (severe) obesity due to excess calories; I10 Essential (primary) hypertension; M20.31 Hallux varus (acquired), right foot; M20.5X1 Other deformities of toe(s) (acquired), right foot
CPT/HCPCS: 99213; G0463

== ENCOUNTER → 2023-12-04 | Outpatient (CLI) | payer OTHER, SELFPAY ==
--- NOTE | 2023-12-04 07:08 | BI_ITS ---
MAMMOGRAPHY - BILATERAL SCREENING REASON FOR EXAM: Female, 58 years old. Routine annual screening examination. PERTINENT HISTORY: Non-contributory. Remote right stereotactic breast biopsy. TECHNIQUE: Digital bilateral breast nick (3D mammographic acquisition) in the CC and MLO projections. 2-D mediolateral oblique (MLO) and craniocaudad (CC) views of both breasts were obtained. CAD: Full Field Digital Mammography with Computer Added Detection was performed. COMPARISON: Comparison is made with prior study dated November 30, 2022 and March 11, 2020. FINDINGS: Breast Composition: The breasts are heterogeneously dense, which may obscure small masses. There are no dominant masses or suspicious calcifications. No other significant abnormalities are identified. There has been no significant change since the prior study. BI/SCRN MAMM (CAD)W/NICK BILAT IMPRESSION: Stable bilateral screening mammogram. Yearly follow-up mammogram recommended. (A) ASSESSMENT CATEGORY: BIRADS Category 1: Negative. A letter regarding these results will be sent to the patient by the facility within 30 days. Approximately 10% of breast cancers are not detected by mammography. A normal mammogram should not delay biopsy of a clinically suspicious abnormality. [id number] Electronically Signed: Thaddues You MD at 9:48 EDT ,
== END | disposition home or self-care (01) ==
LOC: OPBI 07:06
PROVIDERS: PCP Nurse Practitioner Family; Referring Provider Nurse Practitioner Family; Visit Provider Nurse Practitioner Family
DX: Z12.31 Encounter for screening mammogram for malignant neoplasm of breast (principal)
CPT/HCPCS: 77063; 77067

== ENCOUNTER → 2025-05-25 | Outpatient (CLI) | payer OTHER, SELFPAY ==
--- NOTE | 2025-05-25 07:46 | BI_ITS ---
EXAM: SCRN MAMM (CAD)W/NICK BILAT DATE: 05/25/2025 CLINICAL HISTORY: F, Age 60 y/o , SCREENING TECHNIQUE: Procedure Code: [id number] Modality: MG Procedure: SCRN MAMM (CAD)W/NICK BILAT COMPARISON: Prior exam(s) dated mammograms dated 12/04/2023 and 11/30/2022. FINDINGS: TISSUE DENSITY: There are scattered areas of fibroglandular density. Bilateral Breast Mammographic Findings: No significant masses, calcifications or other abnormalities are identified. Benign-appearing macrocalcifications and round microcalcifications are seen in both breast. Stable nodular masslike densities are seen in both breasts. BI/SCRN MAMM (CAD)W/NICK BILAT IMPRESSION: Benign screening mammogram OVERALL FINAL ASSESSMENT BI-RADS 2: BENIGN RECOMMENDATION: Routine annual follow-up in 1 Year Additional Recommendation none A letter with findings and recommendations will be mailed to the patient. Reading Location: [id number]
--- OUTSIDE RECORDS SUMMARY | 2025-05-25 08:07 | XMS RPT_ITS | CCD ---
Author Organization [facility] Inform ion Partnership [facility] Care Team Providers Care Take Up Operator Name Role Phone Alis Mo Attending Unavailable Alis Mo Referring Unavailable Alis Mo Primary Care Unavailable Medications Current Medications Medication Drug Class(es) Dates Sig (Normalized) Sig (Original) calcium carbonate 1500 mg / cholecalciferol 800 unt chewable tablet (8 sources) Vitamin D Start: 9 take 1 tablet by mouth once daily Calcium Carbonate-Vitamin D3 (Caltrate 600 Plus D) 600 mg (1,500 mg)-800 unit tablet,chewable Active 1 TABLET PO DAILY May 22, 2019 12:00am hydroCHLOROthiazide 25 mg oral tablet (8 sources) Thiazide Diuretic Start: 9 take 25 mg by mouth once daily Hydrochlorothiazide Active 25 MG PO DAILY May 22, 2019 12:00am metoprolol tartrate 25 mg oral tablet (8 sources) beta-Adrenerg ic Jose Start: 9 take 25 mg by mouth twice daily Metoprolol Tartrate Active 25 MG PO TWICE A DAY May 22, 2019 12:00am Pi-Noy-Lcjzz-Calcium Carb-K1 (8 sources) Start: 9 take 1 tablet by mouth once daily Bu-Hbv-Gijtf-Calcium Carb-K1 Active 1 TABLET PO DAILY May 22, 2019 12:00am Start: 05-22-2019 take 1 tablet by kevon th once daily Ds-Ceo-Gxyjr-Calcium Carb-K1 Active 1 TABLET PO DAILY May 22, 2019 1:00am microencapsulated potassium chloride 20 meq extended release oral tablet (8 sources) Start: 05-22-2019 Potassium Chloride (Klor-Con M20) 20 mEq tablet,ER particles/crystals Active 20 MEQ PO DAILY May 22, 2019 12:00am simvastatin 20 mg oral tablet (8 sources) HMG-CoA Reductase Inhibitor Start: 05-22-2019 take 20 mg by mouth at bedtime Simvastatin Active 20 MG PO AT BEDTIME May 22, 2019 12:00am Problems Problem Classification Problem Date Documented Da te Episodic/Chronic Acquired foot deformities (20 sources) Hammer toe; Translations: [Hallux varus (acquired), right foot] 01-25-2023 Chronic Acquired foot deformities (20 sources) Acquired hallux limitus of right great toe; Translations: [Other deformities of toe(s) (acquired), right foot] 01-25-2023 Episodic Chronic ulcer of skin (20 sources) Non-pressure chronic ulcer of other part of right foot with fat layer exposed; Translations: [Non-pressure chronic ulcer of other part of right foot with fat layer exposed] 01-25-2023 Chronic Diabetes mellitus with complications (20 sources) Type 2 diabetes mellitus with ulcer; Translations: [Type 2 diabetes mellitus with foot ulcer] 01-25-2023 Chronic Diabetes mellitus without complication (20 sources) Diabetes mellitus; Translations: [Type 2 diabetes mellitus without complications] 01-16-2023 Chronic Disorders of lipid metabolism (20 sources) Hyperlipidemia; Translations: [Hyperlipidemia, unspecified] 01-16-2023 Chronic Essential hypertension (20 sources) Hypertensive disorder; Translations: [Essential (primary) hypertension] 01-16-2023 Chronic Other acquired deformities (8 sources) Deformity of lower limb; Translations: [Other specified acquired deformities of right lower leg] 01-25-2023 Episodic Other acquired deformities (6 sources) Other specified acquired deformities of right lower leg; Translations: [Other acquired deformity of other parts of limb] 02-05-2023 Episodic Other connective tissue disease (20 sources) Contracture of muscle, right lower leg; Translations: [Spasm of muscle] 02-05-2023 Episodic Other nervous system disorders (8 sources) Peripheral nerve disease ; Translations: [Polyneuropathy, unspecified] 01-16-2023 Chronic Other nervous system disorders (8 sources) Polyneuropathy, unspecified; Translations: [Unspecified hereditary and idiopathic peripheral neuropathy] 02-05-2023 Chronic Other nutritional; endocrine; and metabolic disorders (8 sources) Body mass index 40+ - severely obese; Translations: [Morbid (severe) obesity due to excess calories] 01-16-2023 Chronic Other nutritional; endocrine; and metabolic disorders (20 sources) Morbid (severe) obesity due to excess calories; Translations: [Morbid obesity] 02-05-2023 Chronic Other screening for suspected conditions (not mental disorders or infectious disease) (1 source) Encounter for screening mammogram for malignant neoplasm of breast; Translations: [Encounter for screening mammogram for malignant neoplasm of breast] Onset: 05-11-2025 Episodic Results Test Name Value Interpretation Reference Range Facility Bacteria identified Anaer cx Nom (Unsp spec)Ordered By: Jared Gibbons on 07-26-2023 Anaerobic Culture Anaerobic cocci [facility] Bacteria identified Cx Nom ( Wound)Ordered By: Jared Gibbons on 07-26-2023 Wound Culture Streptococcus agalactiae (B) [facility] Wound Culture Dermacoccus / kytococcus sp. [facility] Wound Culture Corynebacterium amycolatum/xer [facility] Wound Culture Staphylococcus simulans [facility] Wound Culture Staphylococcus sciuri [facility] Gram stain for investigation of transfusion reactionOrdered By: Jared Gibbons on 07-26-2023 Microscopic observation Gram stain Nom (Unsp spec) [facility] Bacteria identified Anaer cx Nom (Unsp spec)Ordered By: Jared Gibbons on 03-02-2023 Anaerobic Culture Anaerobic cocci [facility] Bacteria identified Cx Nom ( Wound)Ordered By: Jared Gibbons on 03-02-2023 Wound Culture Pseudomonas aeruginosa [facility] Wound Culture Providencia rettgeri [facility] Wound Culture Corynebacterium jeikeium [facility] Wound Culture Staphylococcus cohnii urealyti [facility] Gram stain for investigation of transfusion reactionOrdered By: Jared Gibbons on 03-02-2023 Microscopic observation Gram stain Nom (Unsp spec) [facility] Bacteria identified Anaer cx Nom (Unsp spec)Ordered By: Jared Gibbons on 03-01-2023 Anaerobic Culture Anaerobic cocci [facility] Bacteria identified Cx Nom ( Wound)Ordered By: Jared Gibbons on 03-01-2023 Wound Culture Pseudomonas aeruginosa [facility] Wound Culture Providencia rettgeri [facility] Wound Culture Corynebacterium jeikeium [facility] Wound Culture Staphylococcus cohnii urealyti [facility] Gram stain for investigation of transfusion reactionOrdered By: Jared Gibbons on 03-01-2023 Microscopic observation Gram stain Nom (Unsp spec) [facility] Bacteria identified Anaer cx Nom (Unsp spec)Ordered By: Lopez Nelson on 01-16-2023 Anaerobic Culture Anaerobic cocci [facility] Bacteria identified Cx Nom ( Wound)Ordered By: Lopez Nelson on 01-16-2023 Wound Culture Providencia rettgeri [facility] Wound Culture Staphylococcus aureus [facility] Wound Culture Streptococcus agalactiae (B) [facility] Wound Culture Kocuria swathiistinae [facility] Gram stain for investigation of transfusion reactionOrdered By: Lopez Nelson on 01-16-2023 Microscopic observation Gram stain Nom (Unsp spec) [facility] Absolute lymphocyte countOrd ered By: Alis Mo on 01-03-2023 Lymphocytes Auto (Unsp spec) [#/Vol] 1.76 10*3/uL 0.83-4.51 [facility] Basophil percentageOrdered B y: Alis Mo on 01-03-2023 Basophils/100 WBC (Bld) 0.6 % 0-1 [facility] Bilirubin [Mass/Vol] 0.40 mg/dL 0.20-1.00 [facility] Comment on above: For patients on eltr ombopag therapy, use of Dimension [place] TBIL is not recommended. Chloride [Moles/Vol] 101 mmol/L 98-107 [facility] Eosinophils/100 WBC (Bld) 2.0 % 0-5 [facility] Glucose [Mass/Vol] 140 mg/dL 74-106 [facility] Comment on above: Fasting Glucose resu lt greater than or equal to 126 mg/dL suggests DIABETES MELLITUS per A.D.A. criteria. Neutrophils (Bld) [#/Vol] 5.8 10*3/uL 2.0-7.7 [facility] Neutrophils/100 WBC (Bld) 66.7 % 47-70 [facility] Potassium [Moles/Vol] 4.0 mmol/L 3.5-5.1 [facility] Protein [Mass/Vol] 7.8 g/dL 6.4-8.2 [facility] Sodium [Moles/Vol] 138 mmol/L 136-145 [facility] WBC (Bld) [#/Vol] 8.7 10*3/uL 4.4-11.0 [facility] Blood erythrocytes count (nu mber/volume)Ordered By: Alis Mo on 01-03-2023 RBC (Bld) [#/Vol] 4.92 10*6/uL 4.2-5.4 [facility] Blood hemoglobin measurement (mass/volume)Ordered By: Alis Mo on 01-03-2023 Hemoglobin (Bld) [Mass/Vol] 13.5 g/dL 12.0-15.0 [facility] Blood lymphocytes/100 leukoc ytesOrdered By: Alis Mo on 01-03-2023 Lymphocytes/100 WBC (Bld) 20.3 % 19-41 [facility] Blood monocytes/100 leukocyt esOrdered By: Alisnehemiah Mo on 01-03-2023 Monocytes/100 WBC (Bld) 9.9 % 0-10 [facility] Blood platelet mean volumeOr dered By: Alis Mo on 01-03-2023 Platelet mean volume (Bld) [Entitic vol] 10.0 fL 6.2-12.0 [facility] Determination of erythrocyte mean corpuscular volume (MCV)Ordered By: Alis Mo on 01-03-2023 MCV (RBC) [Entitic vol] 84.1 fL 81-99 [facility] Hematocrit Auto (Bld) [Volum e fraction]Ordered By: Alis Mo on 01-03-2023 Hematocrit (Bld) [Volume fraction] 41.4 % 37-47 [facility] Laboratory - Chemistry and C hemistry - challengeOrdered By: Alis Mo on 01-03-2023 ALP [Catalytic activity/Vol] 107 U/L 45-117 [facility] ALT [Catalytic activity/Vol] 24 U/L 13-56 [facility] CO2 [Moles/Vol] 30.0 mmol/L 21.0-32.0 [facility] Free T4 [Mass/Vol] 0.99 ng/dL 0.76-1.46 [facility] Globulin (S) [Mass/Vol] 4.5 g/dL 2.2-4.2 [facility] Urea nitrogen/Creatinine [Mass ratio] 21.5 mg/mg 10-20 [facility] Laboratory - Hematology and Cell countsOrdered By: Alis Mo on 01-03-2023 Erythrocyte distribution width (RBC) [Entitic vol] 43.8 fL 35.1-43.9 [facility] Erythrocyte distribution width (RBC) [Ratio] 14.5 % 11.6-14.6 [facility] Immature granulocytes/100 WBC (Bld) 0.500 % 0.0-0.9 [facility] Comment on above: IG% - Immature Granu locytes (promyelocytes, myelocytes and metamyelocytes) > 1% indicates that a LEFT SHIFT is Present. MCH (RBC) [Entitic mass] 27.4 pg 27.0-32.0 [facility] Nucleated RBC/100 WBC (Bld) [Ratio] 0 % 0-5 [facility] MCHC Auto (RBC) [Mass/Vol]Or dered By: Alis Mo on 01-03-2023 MCHC (RBC) [Mass/Vol] 32.6 g/dL 32-36 [facility] No Panel InformationOrdered By: Alis Mo on 01-03-2023 Estimated GFR (MDRD) Amer 119 mL/min >60 [facility] Comment on above: GFR Calc Estimated GFR (MDRD) Non-Af Amer 99 mL/min >60 [facility] Comment on above: Non- GFR Calc Thyroid Stimulating Hormone (TSH) 4.40 uIU/mL 0.358-3.74 [facility] Platelets bldOrdered By: Urvashi Mo on 01-03-2023 Platelets (Bld) [#/Vol] 308 10*3/uL 150-450 [facility] Serum or plasma albumin estevan urement (mass/volume)Ordered By: Alis Mo on 01-03-2023 Albumin [Mass/Vol] 3.3 g/dL 3.2-5.0 [facility] Serum or plasma albumin/glob ulin mass ratioOrdered By: Alis Mo on 01-03-2023 Albumin/Globulin [Mass ratio] 0.7 {ratio} 0.9-2.4 [facility] Serum or plasma calcium estevan urement (mass/volume)Ordered By: Alis Mo on 01-03-2023 Calcium [Mass/Vol] 9.3 mg/dL 8.5-10.1 [facility] Serum or plasma creatinine m easurement (mass/volume)Ordered By: Alis Mo on 01-03-2023 Creatinine [Mass/Vol] 0.65 mg/dL 0.55-1.02 [facility] Comment on above: The validity of the calculated GFR & GFRAA in patients over 70 years has not been determined. Clinical correlation is essential. Serum or plasma urea nitroge n measurement (mass/volume)Ordered By: Alis Mo on 01-03-2023 Urea nitrogen [Mass/Vol] 14 mg/dL 7-18 [facility] Thin prep Papanicolaou smear with manual screeningOrdered By: Alis Mo on 01-03-2023 Thin prep Papanicolaou smear with manual screening 19 U/L 15-37 [facility] Thin prep Papanicolaou smear with manual screening 7 5-15 [facility] DIGITAL MAMM SCREENING W/ TO Carbajal 03-30-2021 DIGITAL MAMM SCREENING W/ NICK Patient Name: LUCRECIA HOU STUDY: Digital mammography screening with nick; 03/30/2021 8:46 am ACCESSION NUMBER(S): [id number] ORDERING CLINICIAN: MATT VELAZQUEZ INDICATION: Screening. COMPARISON: Comparison is made to prior digital mammograms dated 03/11/2020 FINDINGS: CC and MLO 2D digital mammograms and digital breast tomosynthesis images were obtained of the bilateral breasts. 3-D volume images were reconstructed in 4 views at an independent workstation as 1 mm slices through the breasts in both the CC and MLO projections. There are areas of scattered fibroglandular tissue. No discrete mass or focal asymmetry is identified. No suspicious microcalcifications or foci of architectural distortion are seen. There has been no significant change. This study was interpreted with CAD. IMPRESSION: No mammographic evidence of malignancy. BI-RADS CATEGORY: Category: 1 - Negative. Recommendation: 1 Year Screening. Electronically signed by: RICHY AGUAYO MD [facility] Vital Signs Date Time Vital Sign Value Performing Clinician Yenni alejandro 08-09-2023 08:40-0500 Body mass index (BMI) [Ratio] 41.8 kg/m2 [facility] 08-09-2023 08:40-0500 Body temperature 95.2 [degF] [facility] 08-09-2023 08:40-0500 Diastolic blood pressure 85 mm[Hg] [facility] 08-09-2023 08:40-0500 Heart rate 83 /min [facility] 08-09-2023 08:40-0500 Respiratory rate 18 /min [facility] 08-09-2023 08:40-0500 Systolic blood pressure 189 mm[Hg] [facility] 08-09-2023 00:46-0500 Body weight 110.67 kg [facility] 08-02-2023 08:41-0500 Body mass index (BMI) [Ratio] 41.8 kg/m2 [facility] 08-02-2023 08:41-0500 Body temperature 95.9 [degF] [facility] 08-02-2023 08:41-0500 Diastolic blood pressure 77 mm[Hg] [facility] 08-02-2023 08:41-0500 Heart rate 79 /min [facility] 08-02-2023 08:41-0500 Respiratory rate 16 /min [facility] 08-02-2023 08:41-0500 Systolic blood pressure 169 mm[Hg] [facility] 07-09-2023 00:14-0500 Body weight 110.67 kg [facility] 07-05-2023 08:45-0500 Body mass index (BMI) [Ratio] 41.8 kg/m2 [facility] 07-05-2023 08:45-0500 Body temperature 96.4 [degF] [facility] 07-05-2023 08:45-0500 Diastolic blood pressure 95 mm[Hg] [facility] 07-05-2023 08:45-0500 Heart rate 81 /min [facility] 07-05-2023 08:45-0500 Respiratory rate 18 /min [facility] 07-05-2023 08:45-0500 Systolic blood pressure 176 mm[Hg] [facility] 06-08-2023 00:19-0500 Body weight 110.67 kg [facility] 06-07-2023 10:08-0500 Body mass index (BMI) [Ratio] 41.8 kg/m2 [facility] 06-07-2023 10:08-0500 Body temperature 96.9 [degF] [facility] 06-07-2023 10:08-0500 Respiratory rate 18 /min [facility] 05-24-2023 08:52-0500 Diastolic blood pressure 85 mm[Hg] [facility] 05-24-2023 08:52-0500 Heart rate 78 /min [facility] 05-24-2023 08:52-0500 Systolic blood pressure 185 mm[Hg] [facility] 05-09-2023 00:40-0400 Body weight 110.67 kg [facility] 05-03-2023 09:58-0400 Body mass index (BMI) [Ratio] 41.8 kg/m2 [facility] 05-03-2023 09:58-0400 Body temperature 97 [degF] [facility] 05-03-2023 09:58-0400 Diastolic blood pressure 66 mm[Hg] [facility] 05-03-2023 09:58-0400 Heart rate 72 /min [facility] 05-03-2023 09:58-0400 Respiratory rate 16 /min [facility] 05-03-2023 09:58-0400 Systolic blood pressure 123 mm[Hg] [facility] 04-08-2023 00:21-0400 Body weight 110.67 kg [facility] 04-05-2023 09:47-0400 Body mass index (BMI) [Ratio] 41.8 kg/m2 [facility] 04-05-2023 09:47-0400 Body temperature 96.4 [degF] [facility] 04-05-2023 09:47-0400 Diastolic blood pressure 81 mm[Hg] [facility] 04-05-2023 09:47-0400 Heart rate 79 /min [facility] 04-05-2023 09:47-0400 Respiratory rate 18 /min [facility] 04-05-2023 09:47-0400 Systolic blood pressure 150 mm[Hg] [facility] 03-09-2023 00:33-0400 Body weight 110.67 kg [facility] 03-08-2023 09:42-0400 Body mass index (BMI) [Ratio] 41.8 kg/m2 [facility] 03-08-2023 09:42-0400 Body temperature 97.2 [degF] [facility] 03-08-2023 09:42-0400 Diastolic blood pressure 61 mm[Hg] [facility] 03-08-2023 09:42-0400 Heart rate 76 /min [facility] 03-08-2023 09:42-0400 Respiratory rate 18 /min [facility] 03-08-2023 09:42-0400 Systolic blood pressure 162 mm[Hg] [facility] 02-06-2023 00:27-0400 Body weight 110.67 kg [facility] 02-01-2023 09:06-0400 Body mass index (BMI) [Ratio] 41.8 kg/m2 [facility] 02-01-2023 09:06-0400 Diastolic blood pressure 96 mm[Hg] [facility] 02-01-2023 09:06-0400 Heart rate 75 /min [facility] 02-01-2023 09:06-0400 Respiratory rate 18 /min [facility] 02-01-2023 09:06-0400 Systolic blood pressure 139 mm[Hg] [facility] 01-25-2023 08:47-0400 Body temperature 96.1 [degF] [facility] 01-16-2023 08:24-0400 Body height 162.56 cm [facility] 01-16-2023 08:24-0400 Body weight 110.67 kg [facility] Encounters Encounter Date Encounter Type Care Provider Facility Start: 05-25-2025 ambulatory Alis Mo Facility:[facility] Start: 08-09-2023 End: 09-06-2023 ambulatory [facility] Work Phone: Start: 08-09-2023 End: 09-06-2023 Discharged Recurring [facility] Work Phone: Start: 08-02-2023 End: 08-08-2023 ambulatory [facility] Work Phone: Start: 08-02-2023 End: 08-08-2023 [facility] Start: 07-05-2023 End: 07-08-2023 ambulatory [facility] Work Phone: Start: 07-05-2023 End: 07-08-2023 [facility]: Start: 06-07-2023 End: 06-07-2023 ambulatory [facility] Work Phone: Start: 06-07-2023 End: 06-07-2023 [facility]: Start: 05-03-2023 End: 05-08-2023 ambulatory [facility] Work Phone: Start: 05-03-2023 End: 05-08-2023 [facility]: Start: 04-05-2023 End: 04-07-2023 ambulatory [facility] Work Phone: Start: 04-05-2023 End: 04-07-2023 [facility]: Start: 03-08-2023 End: 03-08-2023 ambulatory [facility] Work Phone: Start: 03-08-2023 End: 03-08-2023 [facility]: Start: 02-01-2023 End: 02-05-2023 ambulatory [facility] Work Phone: Start: 02-01-2023 End: 02-05-2023 Discharged Recurring [facility] Work Phone: Start: 01-03-2023 End: 01-03-2023 Patient encounter procedure [facility] Start: 11-30-2022 End: 11-30-2022 Patient encounter procedure [facility] Work Phone: Procedures Date Procedure Procedure Detail Performing Clinician Start: 07-26-2023 Anaerobic microbial culture Start: 07-26-2023 Investigation of tra nsfusion reaction Start: 07-26-2023 Microbial culture, routine Start: 03-29-2023 X-ray of both feet Start: 03-01-2023 Anaerobic microbial culture Start: 03-01-2023 Investigation of tra nsfusion reaction Start: 03-01-2023 Microbial culture, routine Start: 01-17-2023 X-ray of both feet Start: 01-16-2023 Anaerobic microbial culture Start: 01-16-2023 Investigation of tra nsfusion reaction Start: 01-16-2023 Microbial culture, routine Start: 11-30-2022 Screening mammography Payers Date Payer Category Payer Self-pay [id number] 2025 Private Health Insurance [id number] Private Health Insurance [employer] [id number] Unknown [facility] [employer] [id number] Unknown [id number] Social History Date Type Detail Facility Start: 01-16-2023 End: 01-16-2023 Tobacco smoking status NHIS Unknown if ever smoked [facility] Start: 1965 Sex Assigned At Female [facility] Clinical Notes 01-16-2023 to 08-09-2023 Note Date & Type Note Facility 08-09-2023 Progress note Note Date/Time August 09, 2023 8:47am [facility] [address] [place] [address] Progress Note - Wound Care 08/09/23 0842 MR#: [id number] Acct: [id number] Name: LUCRECIA HOU Rep #:[id number] : 1965 58 From: Jared worley DPM PCP: SHIKHA CastilloC Status:REG RCR Location: History of Present Illness Date of Service: 08/09/23 Chief Complaint: Diabetic foot ulceration, right metatarsal-phalangeal joint, plantar surface History of Wound: This is a 58-year-old, morbidly-obese, diabetic female who presents with a largeulceration on the right great toe. The ulceration is located at the right firstmetatarsophalangeal joint, on the plantar surface. It has been present for approximately 4 months. According to the patient, it originated as a callus, and she ripped off the skin. She has been using Watkin's salve topically. 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 Her BMI is 41.8. Shedenies a history of smoking. She also denies a history of myocardial infarction, congestive heart failure, cerebrovascular accident, pulmonary disease,renal disease, and thyroid disease. Most recent hemoglobin A1c was 7.0 in September,. Laboratory studies obtained recently, dated January 03, 2023, are as follows: White blood count 8.7, hemoglobin 13.5, hematocrit 41.4, platelets 308,000, sodium 138, potassium 4.0, chloride 101, BUN 14, creatinine 0.65, glucose 140, calcium 9.3, bilirubin 0.40, AST 19, ALT 24, alkaline phosphatase 107, protein 7.8, albumin 3.3. Subjective Subjective This is a 58-year-old diabetic female who presents to the wound care center today for follow-up of a plantar first metatarsal head ulceration of the right foot. She has continued to offload in the CAM boot with plantar offloading padding and remaining nonweightbearing to the right lower extremity with assistance of knee scooter when out doors. She is walking in CAM boot inside house. She denies any drainage today and has changed dressings daily. She denies any constitutional symptoms. She denies further complaints. Objective Data Objective Data Vital Signs: Vital Signs Temp Pulse Resp BP 95.9 F L 79 16 169/77 H 08/09/23 00:46 08/09/23 00:46 08/09/23 00:46 08/09/23 00:46 Weight: 110.677 kg Body Mass Index (BMI) 41.8 Physical Exam Const alert, oriented x3, no apparent distress and well nourished General Appearance: cooperative HEENT normocephalic Eyes General Eye: normal appearance of both eyes Neck General: normal visual inspection Lymph Lymphatic: no lymphadenopathy noted and no lymphedema noted Resp normal respiratory effort Cardio regular rate and regular rhythm Extremity normal capillary refill, no joint enlargement, no calf tenderness and no pedal edema Extremity Narrative: DP and PT pulses palpable bilateral. Capillary fill time to the digits less than 5 seconds bilateral. Hair growth diminished to the digits bilateral. Dermatological: Skin appears well-hydrated with normal turgor. Hyperkeratotic tissue Sub first metatarsal head with healed ulceration. No signs of infection. Musculoskeletal: Muscle strength 5 of 5 age-appropriate. She does demonstrate decreased range of motion of the first metatarsophalangeal joint bilateral without pain or crepitus. Decreased range of motion of the ankle joint in dorsiflexion with the knee extended without pain or crepitus bilateral. Hammertoe deformity of the right hallux. No pain to palpation about the ulcerative site plantar first metatarsal head right foot Skin no rashes or lesions noted, skin turgor normal and no jaundice Neuro moves all extremities Neuro Narrative: Decreased protective sensation secondary to diabetic peripheral polyneuropathy Debridement Note Debridement Note No debridement was completed: No debridement was completed today Assessment/Plan Assessment/Plan (1) Non-pressure chronic ulcer of other part of right foot with fat layer exposed: CODE(S): L97.512 - Non-pressure chronic ulcer of other part of right foot with fat layer exposed (2) Acquired hallux limitus of right foot: CODE(S): M20.5X1 - Other deformities of toe(s) (acquired), right foot (3) Hallux malleus of right foot: CODE(S): M20.31 - Hallux varus (acquired), right foot (4) Type 2 diabetes mellitus with foot ulcer: CODE(S): E11.621 - Type 2 diabetes mellitus with foot ulcer; L97.509 - Non-pressure chronic ulcer of other part of unspecified foot with unspecified severity (5) Gastrocnemius equinus of right lower extremity: CODE(S): M21.861 - Other specified acquired deformities of right lower leg (6) Diabetes mellitus with diabetic polyneuropathy: CODE(S): E11.42 - Type 2 diabetes mellitus with diabetic polyneuropathy (7) Morbid obesity with BMI of 40.0-44.9, adult: CODE(S): E66.01 - Morbid (severe) obesity due to excess calories; Z68.41 -Body mass index [BMI] 40.0-44.9, adult (8) Hypertension: CODE(S): I10 - Essential (primary) hypertension PLAN: Plan Patient seen and evaluated. Patient was weight bearing in CAM boot with plantar offloading padding today I have reviewed the LEAS performed 01/17/2023 demonstrating: Left foot triphasic DP and PT on Doppler; Indices left foot PT- 1.05. DP 1.03, Digit 0.91; right foot triphasic DP and PT on Doppler; Indices foot PT 1.10, DP 1.16, digit noncompressible. PVR diminished at ankle and digit on left with noncompressible digit right foot. Impression no evidence of significant occlusive arterial disease. She may discontinue use of knee scooter Ulceration has healed. No signs of infection Cultures obtained 07/26/2023, demonstrating Streptococcus agalactiae; gram-positive rods; corynebacterium amycoiatum; Staphylococcus simulans; Staphylococcus sciuri; and anaerobic cocci. Due to positive culture she will be started on Augmentin 875 twice daily x 14 days (stop date 08/16/22) she was encouraged to finish antibiotic to full completion. Discussed padding and protecting sensitive area of skin for next 7 to 10 days as she will remain in cam boot during this time. Following this course of padding and protecting she will then transition back to supportive shoe gear. Discussed proper diabetic diet to maintain tight glycemic control. Last A1c 09/2022 was 7.0%. Discussed continued diet and exercise along with lifestyle modification/weight loss to aid in healthy lifestyle. Discussed importance of daily foot checks. Discussed adequate protein intake to aid in wound healing. She may take Jeremy supplementation to aid in wound healing. Discussed being diabetic she is never to go barefoot and should wear closed toed shoes at all times. Discussed with her socks is considered barefoot. Encouraged shoe gear to be worn at all times. She voices understanding of this. Recommend diabetic shoes with plantar offloading padding once ulceration has healed. The following work up and care recommendations were made: Dressing: Band-Aid/dry dressing for next 7 to 10 days Wash: Soap and water Tissue growth optimization: None Offload: CAM boot with plantar offloading padding for next 7 to 10 days followed by transition back to supportive shoe gear. Vascular: Palpable pedal pulses bilateral. LEAS obtained and reviewed from 01/17/2023 demonstrating no significant arterial occlusive disease. She is noted to have mild arterial disease of the popliteal/SFA bilateral. On Doppler DP and PT are triphasic bilateral. Edema: No edema noted Infection: No signs of infection Pain: May take [id number] Tylenol for discomfort Radiographs: 01/17/23 demonstrate no evidence of osteomyelitis; 03/20/23 no evidence of osteomyelitis Host factors: DM type II with peripheral polyneuropathy, hallux limitus right foot, hallux malleus right foot, morbid obesity, equinus deformity all complicated healing potential With patient healed she is being discharged from the wound care center today. I answered all the patient's questions. To return to the wound healing center in as needed or call sooner if the patient has any questions or concerns. 08/09/2357 <Electronically signed by Jared Gibbons DPM> Cosigner Signature (if applicable): CC: ~ Signed [facility] Work Phone: [phone] 717-256101-25-2024 Progress note Author Jared Gibbons [facility] August 02, 2023 9:18am Note Date/Time August 02, 2023 8 :51am [facility] [address] [place] [address] Progress Note - Wound Care 08/02/23 0847 MR#: [id number] Acct: [id number] Name: LUCRECIA HOU Rep #:[id number] : 1965 58 From: Jared worley DPM PCP: REX Castillo Status:REG RCR Location: History of Present Illness Date of Service: 08/02/23 Chief Complaint: Diabetic foot ulceration, right metatarsal-phalangeal joint, plantar surface History of Wound: This is a 58-year-old, morbidly-obese, diabetic female who presents with a largeulceration on the right great toe. The ulceration is located at the right firstmetatarsophalangeal joint, on the plantar surface. It has been present for approximately 4 months. According to the patient, it originated as a callus, and she ripped off the skin. She has been using Watkin's salve topically. 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 Her BMI is 41.8. Shedenies a history of smoking. She also denies a history of myocardial infarction, congestive heart failure, cerebrovascular accident, pulmonary disease,renal disease, and thyroid disease. Most recent hemoglobin A1c was 7.0 in September,. Laboratory studies obtained recently, dated January 03, 2023, are as follows: White blood count 8.7, hemoglobin 13.5, hematocrit 41.4, platelets 308,000, sodium 138, potassium 4.0, chloride 101, BUN 14, creatinine 0.65, glucose 140, calcium 9.3, bilirubin 0.40, AST 19, ALT 24, alkaline phosphatase 107, protein 7.8, albumin 3.3. Subjective Subjective This is a 58-year-old diabetic female who presents to the wound care center today for follow-up of a plantar first metatarsal head ulceration of the right foot. She has attempted to kept dressings clean, dry, and intact to the Right foot, but sites were getting wet and sutures had torn through. She has continuedto offload in the CAM boot with plantar offloading padding and remaining nonweightbearing to the right lower extremity with assistance of knee scooter when out doors. She is walking in CAM boot inside house. She denies any constitutional symptoms. She denies further complaints. Objective Data Objective Data Vital Signs: Vital Signs Temp Pulse Resp BP O2 Del Method 95.9 F L 79 16 169/77 H Room Air 08/02/23 08:41 08/02/23 08:41 08/02/23 08:41 08/02/23 08:41 08/02/23 08:41 Oxygen Delivery Method Room Air Weight: 110.677 kg Body Mass Index (BMI) 41.8 Lab / Micro Data Micro: Microbiology 07/26/23 09:00 Wound - Right Foot Gram Stain - Final 07/26/23 09:00 Wound - Right Foot Wound Culture - Preliminary Streptococcus agalactiae (B) Gram positive ragini Corynebacterium amycolatum/xer Staphylococcus simulans Staphylococcus sciuri 07/26/23 09:00 Wound - Right Foot Anaerobic Culture - Final Anaerobic cocci Physical Exam Const alert, oriented x3 and no apparent distress General Appearance: cooperative HEENT normocephalic Eyes General Eye: normal appearance of both eyes Neck General: normal visual inspection Lymph Lymphatic: no lymphadenopathy noted and no lymphedema noted Resp normal respiratory effort Cardio regular rate and regular rhythm Extremity normal capillary refill, no joint enlargement, no calf tenderness and no pedal edema Extremity Narrative: DP and PT pulses palpable bilateral. Capillary fill time to the digits less than 5 seconds bilateral. Hair growth diminished to the digits bilateral. Dermatological: Skin appears well-hydrated with normal turgor. Hyperkeratotic tissue Sub first metatarsal head with small ulceration with granular tissue. No purulent drainage, no erythema, no palpable fluctuance/bogginess, no visible abscess formation, no lymphangitic streaking, no malodor. Musculoskeletal: Muscle strength 5 of 5 age-appropriate. She does demonstrate decreased range of motion of the first metatarsophalangeal joint bilateral without pain or crepitus. Decreased range of motion of the ankle joint in dorsiflexion with the knee extended without pain or crepitus bilateral. Hammertoe deformity of the right hallux. No pain to palpation about the ulcerative site plantar first metatarsal head right foot Neuro moves all extremities Neuro Narrative: Decreased protective sensation secondary to diabetic peripheral polyneuropathy Debridement Note Debridement Note No debridement was completed: No debridement was completed today Post-Debridement Measurements and Additional Note: Post-Debridement Measurements/Treatment RADHA - Nurse 1 - General Ulcer Assessment Start: 07/12/23 08:46 Freq: Status: Active Protocol: JAXSON Activity Type Activity Date Activity User E-sign Co-sign Detail Recorded Client Recorded Date Recorded By Document 07/12/23 08:46 KW Desktop 07/12/23 08:52 KW Document 07/12/23 09:13 KW Desktop 07/12/23 09:14 KW Document 07/19/23 08:43 KW Desktop 07/19/23 08:47 KW Document 07/26/23 08:45 KW Desktop 07/26/23 08:52 KW Document 08/02/23 08:41 MW Desktop 08/02/23 08:47 MW 07/12/23 07/12/23 07/19/23 08:46 09:13 08:43 WC - Today's Visit Information Type of service Follow-up Visit Follow-up Visit (Physician/AUTOMOTIVE PROFESSIONAL (Physician/AUTOMOTIVE PROFESSIONAL ) ) Arrival Mode Ambulatory Ambulatory Transfer Assistance Accompanied by Patient Identification Verified (Name & Yes Yes ) Patient Requires Transmission-Based Precautions Safety Precautions Height and Weight Body Mass Index (BMI) 41.8 41.8 41.8 BMI Classification Obese Obese Obese Vital Signs Temperature (97.8 F-99.1 F) 96.8 F L Temperature Source Temporal Pulse Rate (60-100) 79 82 Pulse Location Monitor Monitor Respiratory Rate (12-18) 18 Respiratory rate source Observation Oxygen Delivery Method Room Air Blood Pressure (90/60-120/80) 165/81 H 177/81 H Blood Pressure Mean (mm Hg) 109 113 Source Monitor Monitor Position Semi-Fowlers Sitting Blood Pressure Location Left Arm Left Arm History Since Last Visit- (Skip if this is Patient's initial visit) Have you changed medications since your No No last visit? Any new allergies or adverse reactions No No Had a fall/change in ADL's that may No No increase risk of falls Signs or symptoms of abuse and/or No No neglect since last visit Have you been in the hospital since your No No last visit? Has dressing in place as prescribed Yes Yes Has compression in place as prescribed N/A No Has offloadiing in place as prescribed Yes Yes Experienced any changes in pain level or No management Left Footwear Regular Shoe Regular Shoe Right Footwear Removable Cast Removable Cast Walker/Walking Walker/Walking Boot Boot Pain Scale: 0-10 Numeric Is Patient Pain Free? Yes Yes Yes 07/26/23 08/02/23 08:45 08:41 WC - Today's Visit Information Type of service Follow-up Visit Follow-up Visit (Physician/AUTOMOTIVE PROFESSIONAL (Physician/AUTOMOTIVE PROFESSIONAL ) ) Arrival Mode Ambulatory Ambulatory Transfer Assistance None Accompanied by self Patient Identification Verified (Name & Yes Yes ) Patient Requires Transmission-Based No Precautions Safety Precautions NA Height and Weight Body Mass Index (BMI) 41.8 41.8 BMI Classification Obese Obese Vital Signs Temperature (97.8 F-99.1 F) 96.5 F L 95.9 F L Temperature Source Temporal Temporal Pulse Rate (60-100) 82 79 Pulse Location Monitor Monitor Respiratory Rate (12-18) 18 16 Respiratory rate source Observation Observation Oxygen Delivery Method Room Air Room Air Blood Pressure (90/60-120/80) 130/76 H 169/77 H Blood Pressure Mean (mm Hg) 94 107 Source Monitor Monitor Position Sitting Sitting Blood Pressure Location Left Arm Right Arm History Since Last Visit- (Skip if this is Patient's initial visit) Have you changed medications since your No No last visit? Any new allergies or adverse reactions No No Had a fall/change in ADL's that may No No increase risk of falls Signs or symptoms of abuse and/or No No neglect since last visit Have you been in the hospital since your No No last visit? Has dressing in place as prescribed Yes Yes Has compression in place as prescribed Yes Yes Has offloadiing in place as prescribed Yes N/A Experienced any changes in pain level or No No management Left Footwear Regular Shoe Regular Shoe Right Footwear Removable Cast Removable Cast Walker/Walking Walker/Walking Boot Boot Pain Scale: 0-10 Numeric Is Patient Pain Free? Yes Yes WC - Nurse 1 - General Ulcer Measurement Start: 07/12/23 08:46 Freq: Status: Active Protocol: Activity Type Activity Date Activity User E-sign Co-sign Detail Recorded Client Recorded Date Recorded By Document 07/12/23 08:46 KW Desktop 07/12/23 08:52 KW Document 07/19/23 08:43 KW Desktop 07/19/23 08:47 KW Document 07/26/23 08:45 KW Desktop 07/26/23 08:52 KW Document 08/02/23 08:41 MW Desktop 08/02/23 08:47 MW 07/12/23 07/19/23 07/26/23 08:46 08:43 08:45 Wound Center Nurse 1 #1 right plantar foot -Combined with other wound No -Current Size (cm) - Length 0.1 -Current Size (cm) - Width 0.1 -Current Size (cm) - Depth 0.1 -Total Square Cm 0.01 -Date of Last Picture (Recall this 07/26/23 field) -Photo Taken Yes -Epithelialization -Tunneling -Undermining/Tunneling -Circular Undermining -Exudate Amt Small Small Large -Exudate Type Serosanguineous Serosanguineous Serosanguineous -Wound Margin Distinct, Outline Attached -Granulation Amt -Granulation Quality -Slough/Fibrin -Necrosis Amt -Texture (Kelsie-wound Skin Appearance) Callus Assessed -Moisture (Kelsie-wound Skin Appearance) Assessed, Maceration -Color (Kelsie-wound Skin Appearance) Assessed -Temperature (Kelsie-wound Skin No Abnormality Appearance) (Pt Warm) -Tenderness on Palpation (Kelsie-wound No Skin Appearance) -Ulcer Cleansing Rinsed/ Soap and Water Irrigated with Saline -Foul Odor after Cleansing No -Anesthetic Used -Wound Comment(s) sutures intact. Lower Limb Edema Present 08/02/23 08:41 Wound Center Nurse 1 #1 right plantar foot -Combined with other wound No -Current Size (cm) - Length 0.1 -Current Size (cm) - Width 0.1 -Current Size (cm) - Depth 0.1 -Total Square Cm 0.01 -Date of Last Picture (Recall this 08/02/23 field) -Photo Taken Yes -Epithelialization None Present -Tunneling No -Undermining/Tunneling No -Circular Undermining No -Exudate Amt None Present -Exudate Type -Wound Margin Flat & Intact -Granulation Amt None Present (0 %) -Granulation Quality N/A -Slough/Fibrin Yes -Necrosis Amt Large (67-100%) -Texture (Kelsie-wound Skin Appearance) Assessed,Callus -Moisture (Kelsie-wound Skin Appearance) Assessed,Dry/ Scaly -Color (Kelsie-wound Skin Appearance) No Abnormality, Assessed -Temperature (Kelsie-wound Skin No Abnormality Appearance) (Pt Warm) -Tenderness on Palpation (Kelsie-wound No Skin Appearance) -Ulcer Cleansing Rinsed/ Irrigated with Saline -Foul Odor after Cleansing No -Anesthetic Used 5% Lidocaine Gel -Wound Comment(s) Lower Limb Edema Present No WC - Nurse 2 - General Ulcer CM Notes Start: 07/12/23 08:46 Freq: Status: Active Protocol: Activity Type Activity Date Activity User E-sign Co-sign Detail Recorded Client Recorded Date Recorded By Document 07/26/23 10:19 PL Tablet 07/26/23 10:20 PL 07/26/23 10:19 Wound Center Nurse 2 #1 right plantar foot -Time 09:00 -Correct Patient Yes -Correct Side, Site, Position Yes -Correct Procedure Yes -Procedure Performed Yes -Type of Procedure Debridement -Clinical Debridement Subcutaneous -Tissue Removed Subcutaneous -Post Debridement (cm) - Length 0.4 -Post Debridement (cm) - Width 0.5 -Post Debridement (cm) - Depth 0.1 -Total Square (Post) (cm) 0.20 -Area of Debridement (cm) - Length 0.4 -Area of Debridement (cm) - Width 0.5 -Total Square (Area) (cm) 0.20 -Tunneling No -Undermining/Tunneling No -Circular Undermining No -Wound/Ulcer Outcome Not Healed -Ulcer Cleansing Rinsed/ Irrigated with Saline -Foul Odor after Cleansing No -Bioengineered Tissue No -Bleeding Controlled with Pressure -Treatment Response Procedure Tolerated Well -Debridement - Subq, 1st 20sq cm Yes Pain Scale: 0-10 Numeric Is Patient Pain Free? Yes - Nurse 3 - General Ulcer D/C NN Start: 07/12/23 08:46 Freq: Status: Active Protocol: Activity Type Activity Date Activity User E-sign Co-sign Detail Recorded Client Recorded Date Recorded By Document 07/12/23 09:10 KW Desktop 07/12/23 09:12 KW 07/12/23 09:10 Wound Care Center Nurse 3 #1 right plantar foot -Primary Dressing Applied Aquacel Extra, NonAdherent Contact Layer -Primary Dressing Covered/Secured with Dry Gauze & Roll Gauze, Secured with Tape -Aquacel Extra 1 Pain Scale: 0-10 Numeric Is Patient Pain Free? Yes - Visit Discharge Discharge Condition Stable Ambulatory Status Ambulatory Transportation Private Auto Medication Reconcilliation completed & No provided to patient/care provider Clinical Summary of Care Provided Yes Assessment/Plan Assessment/Plan (1) Hypertension: CODE(S): I10 - Essential (primary) hypertension (2) Morbid obesity with BMI of 40.0-44.9, adult: CODE(S): E66.01 - Morbid (severe) obesity due to excess calories; Z68.41 -Body mass index [BMI] 40.0-44.9, adult (3) Hallux malleus of right foot: CODE(S): M20.31 - Hallux varus (acquired), right foot (4) Type 2 diabetes mellitus with foot ulcer: CODE(S): E11.621 - Type 2 diabetes mellitus with foot ulcer; L97.509 - Non- pressure chronic ulcer of other part of unspecified foot with unspecified severity (5) Diabetes mellitus with diabetic polyneuropathy: CODE(S): E11.42 - Type 2 diabetes mellitus with diabetic polyneuropathy (6) Acquired hallux limitus of right foot: CODE(S): M20.5X1 - Other deformities of toe(s) (acquired), right foot (7) Non-pressure chronic ulcer of other part of right foot with fat layer exposed: CODE(S): L97.512 - Non-pressure chronic ulcer of other part of right foot with fat layer exposed (8) Gastrocnemius equinus of right lower extremity: CODE(S): M21.861 - Other specified acquired deformities of right lower leg PLAN: Plan Patient seen and evaluated. Patient was weight bearing in CAM boot with plantar offloading padding today I have reviewed the LEAS performed 01/17/2023 demonstrating: Left foot triphasic DP and PT on Doppler; Indices left foot PT- 1.05. DP 1.03, Digit 0.91; right foot triphasic DP and PT on Doppler; Indices foot PT 1.10, DP 1.16, digit noncompressible. PVR diminished at ankle and digit on left with noncompressible digit right foot. Impression no evidence of significant occlusive arterial disease. I have reviewed her culture results which were obtained 01/17/2023 demonstrating: Providencia rettgeri, Staph aureus, Stap agalactaie, and Kocuria kristinae. She was prescribed Augmentin [address] Omar MD. 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 She did apple picking supervisor antibiotic and has completed this antibiotic course. Following debridement cultures were obtained 03/01/23 due to her continued significant drainage. She was empirically started on oral doxycycline 100 mg p.o. twice daily x14 days and oral ciprofloxacin 500 mg p.o. twice daily x14 days. She states that she picked up oral abx and started on 03/08/23. Culture results demonstrate PsA, Providencia rettgeri, corynebacterium jeikeium, Staphylococcus cohnii urealyti, and anaerobic cocci. 03/22/2023 she completed antibiotic course and due to patient leaving town antibiotic course was extended. She finished oral abx 04/05/23. She was instructed to stay off feet as much as possible to continue to aid in pressure reduction to the ulcerative site. Rx for knee scooter was written 03/29/23. She states she did get the knee scooter is using this to remain non-weight bearing to the right foot. She is not using this at all times. Ulceration demonstrated some macerated skin secondary to getting wet at last visit, this has improved today. Sutures currently intact. Discussed that she is at risk of tearing sutures again because she gets the site wet and does not stay off the foot. No debridement performed today. Wound is demonstrating epithelialization. Ulceration measures 0.1 cm x 0.1 cm x 0.1 cm. Cultures obtained 07/26/2023, demonstrating Streptococcus agalactiae; gram- positive rods; corynebacterium amycoiatum; Staphylococcus simulans; Staphylococcus sciuri; and anaerobic cocci. Due to positive culture she will be started on Augmentin 875 twice daily x 14 days (stop date 08/16/22) Dakin's wet-to-dry dressing was applied to the wound and she is instructed to change this daily. Reminded her she is to remain nonweightbearing in the CAM boot for offloading with knee scooter assistance. Stressed importance of continuing knee scooter again today. She was instructed to continue offloading in CAM boot for the right lower extremity with plantar offloading padding for first metatarsal head. She was instructed to remain in the CAM boot at all times and not to wear flip-flops. She may remove the boot for shower purposes and sleeping. She voices understanding of this. Discussed that pressure reduction to the site is essential for her healing status. Discussed proper diabetic diet to maintain tight glycemic control. Last A1c 09/2022 was 7.0%. Discussed continued diet and exercise along with lifestyle modification/weight loss to aid in healthy lifestyle. Discussed importance of daily foot checks. Discussed adequate protein intake to aid in wound healing. She may take Jeremy supplementation to aid in wound healing. Discussed being diabetic she is never to go barefoot and should wear closed toed shoes at all times. Discussed with her socks is considered barefoot. Encouraged shoe gear to be worn at all times. She voices understanding of this. Recommend diabetic shoes with plantar offloading padding once ulceration has healed. Discussed signs and symptoms of infection. Discussed if she notices redness about the ulcerative site that moves to the top of the foot and up the foot, purulent drainage from the wound site, increasing foul odor, or if she experiences fever greater than 101 degree, nausea, vomiting, chills that these are signs of a progressing infection and she should report to the ED for IV antibiotics. She voices understanding of this today. The following work up and care recommendations were made: Dressing: Dakin's wet to dry dressing. Change daily. Wash: Soap and water Tissue growth optimization: None Offload: CAM boot with plantar offloading padding. Remain nonweightbearing to right lower extremity with assistance of knee scooter. Vascular: Palpable pedal pulses bilateral. LEAS obtained and reviewed from 01/17/2023 demonstrating no significant arterial occlusive disease. She is noted to have mild arterial disease of the popliteal/SFA bilateral. On Doppler DP and PT are triphasic bilateral. Edema: No edema noted Infection: No signs of infection Pain: May take [id number] Tylenol for discomfort Radiographs: 01/17/23 demonstrate no evidence of osteomyelitis; 03/20/23 no evidence of osteomyelitis Host factors: DM type II with peripheral polyneuropathy, hallux limitus right foot, hallux malleus right foot, morbid obesity, equinus deformity all complicated healing potential I answered all the patient's questions. To return to the wound healing center in 1 week or call sooner if the patient has any questions or concerns. 08/02/23917 <Electronically signed by Jared Gibbons DPM> Cosigner Signature (if applicable): CC: ~ Signed [facility] Work Phone: [phone] 105-748201-18-2024 Progress note Author Jared Gibbons [facility] July 26, 2023 9:20am Note Date/Time July 26, 2023 8 :41am [facility] [address] [place] [address] Progress Note - Wound Care 07/26/23 0839 MR#: [id number] Acct: [id number] Name: LUCRECIA HOU Rep #:[id number] : 1965 58 From: Jared worley DPM PCP: REX Castillo Status:REG RCR Location: History of Present Illness Date of Service: 07/26/23 Chief Complaint: Diabetic foot ulceration, right metatarsal-phalangeal joint, plantar surface History of Wound: This is a 58-year-old, morbidly-obese, diabetic female who presents with a largeulceration on the right great toe. The ulceration is located at the right firstmetatarsophalangeal joint, on the plantar surface. It has been present for approximately 4 months. According to the patient, it originated as a callus, and she ripped off the skin. She has been using Watkin's salve topically. 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 Her BMI is 41.8. Shedenies a history of smoking. She also denies a history of myocardial infarction, congestive heart failure, cerebrovascular accident, pulmonary disease,renal disease, and thyroid disease. Most recent hemoglobin A1c was 7.0 in September,. Laboratory studies obtained recently, dated January 03, 2023, are as follows: White blood count 8.7, hemoglobin 13.5, hematocrit 41.4, platelets 308,000, sodium 138, potassium 4.0, chloride 101, BUN 14, creatinine 0.65, glucose 140, calcium 9.3, bilirubin 0.40, AST 19, ALT 24, alkaline phosphatase 107, protein 7.8, albumin 3.3. Subjective Subjective This is a 58-year-old diabetic female who presents to the wound care center today for follow-up of a plantar first metatarsal head ulceration of the right foot. She has attempted to kept dressings clean, dry, and intact to the Right foot, but sites are getting wet. She has continued to offload in the CAM boot with plantar offloading padding and remaining nonweightbearing to the right lower extremity with assistance of knee scooter when out doors. She is walking in CAM boot inside house. She denies any constitutional symptoms. She denies further complaints. Objective Data Objective Data Vital Signs: Vital Signs Temp Pulse Resp BP O2 Del Method 96.8 F L 82 18 177/81 H Room Air 07/19/23 08:43 07/19/23 08:43 07/19/23 08:43 07/19/23 08:43 07/19/23 08:43 Oxygen Delivery Method Room Air Weight: 110.677 kg Body Mass Index (BMI) 41.8 Physical Exam Const alert, oriented x3 and no apparent distress General Appearance: cooperative HEENT normocephalic Eyes General Eye: normal appearance of both eyes Neck General: normal visual inspection Lymph Lymphatic: no lymphadenopathy noted and no lymphedema noted Resp normal respiratory effort Cardio regular rate and regular rhythm Extremity normal capillary refill, no joint enlargement, no calf tenderness and no pedal edema Extremity Narrative: DP and PT pulses palpable bilateral. Capillary fill time to the digits less than 5 seconds bilateral. Hair growth diminished to the digits bilateral. Dermatological: Skin appears well-hydrated with normal turgor. Hyperkeratotic tissue Sub first metatarsal head of the left foot with no evidence of open wound. Sutures intact to plantar first metatarsal head right foot with maceratedtissue and ruptured sutures. No signs of infection. Musculoskeletal: Muscle strength 5 of 5 age-appropriate. She does demonstrate decreased range of motion of the first metatarsophalangeal joint bilateral without pain or crepitus. Decreased range of motion of the ankle joint in dorsiflexion with the knee extended without pain or crepitus bilateral. Hammertoe deformity of the right hallux. No pain to palpation about the ulcerative site plantar first metatarsal head right foot Neuro moves all extremities Neuro Narrative: Decreased protective sensation secondary to diabetic peripheral polyneuropathy Debridement Note Debridement Note Wound debrided: Subfirst metatarsal head right foot Laterality: Right Wound Grade/Stage: Nichols stage I Type of Debridement: Excisional debridement Anesthesia Used: 5% Lidocaine Gel Depth: Down to and including healthy tissue and in the subcutaneous layer Percentage of wound debrided: 100 Instrument Used: #15 blade Tissue Removed: Fibrous, devitalized subcutaneous, biofilm, slough Severity: Fat Layer Exposed Amount of bleeding with debridement: Mild Bleeding Controlled with: Compression and gauze Patient tolerated procedure: Patient tolerated procedure well Post-Debridement Measurements and Additional Note: Post-Debridement Measurements/Treatment WC - Nurse 1 - General Ulcer Assessment Start: 07/12/23 08:46 Freq: Status: Active Protocol: RADHA.LOWEXT Activity Type Activity Date Activity User E-sign Co-sign Detail Recorded Client Recorded Date Recorded By Document 07/12/23 08:46 KW Desktop 01/04/24 08:52 KW Document 07/12/23 09:13 KW Desktop 07/12/23 09:14 KW Document 07/19/23 08:43 KW Desktop 07/19/23 08:47 KW 07/12/23 07/12/23 07/19/23 08:46 09:13 08:43 - Today's Visit Information Type of service Follow-up Visit Follow-up Visit (Physician/AUTOMOTIVE PROFESSIONAL (Physician/AUTOMOTIVE PROFESSIONAL ) ) Arrival Mode Ambulatory Ambulatory Patient Identification Verified (Name & Yes Yes ) Height and Weight Body Mass Index (BMI) 41.8 41.8 41.8 BMI Classification Obese Obese Obese Vital Signs Temperature (97.8 F-99.1 F) 96.8 F L Temperature Source Temporal Pulse Rate (60-100) 79 82 Pulse Location Monitor Monitor Respiratory Rate (12-18) 18 Respiratory rate source Observation Oxygen Delivery Method Room Air Blood Pressure (90/60-120/80) 165/81 H 177/81 H Blood Pressure Mean (mm Hg) 109 113 Source Monitor Monitor Position Semi-Fowlers Sitting Blood Pressure Location Left Arm Left Arm History Since Last Visit- (Skip if this is Patient's initial visit) Have you changed medications since your No No last visit? Any new allergies or adverse reactions No No Had a fall/change in ADL's that may No No increase risk of falls Signs or symptoms of abuse and/or No No neglect since last visit Have you been in the hospital since your No No last visit? Has dressing in place as prescribed Yes Yes Has compression in place as prescribed N/A No Has offloadiing in place as prescribed Yes Yes Experienced any changes in pain level or No management Left Footwear Regular Shoe Regular Shoe Right Footwear Removable Cast Removable Cast Walker/Walking Walker/Walking Boot Boot Pain Scale: 0-10 Numeric Is Patient Pain Free? Yes Yes Yes - Nurse 1 - General Ulcer Measurement Start: 07/12/23 08:46 Freq: Status: Active Protocol: Activity Type Activity Date Activity User E-sign Co-sign Detail Recorded Client Recorded Date Recorded By Document 07/12/23 08:46 KW Desktop 07/12/23 08:52 KW Document 07/19/23 08:43 KW Desktop 07/19/23 08:47 KW 07/12/23 07/19/23 08:46 08:43 Wound Center Nurse 1 #1 right plantar foot -Exudate Amt Small Small -Exudate Type Serosanguineous Serosanguineous -Texture (Kelsie-wound Skin Appearance) Callus -Ulcer Cleansing Rinsed/ Irrigated with Saline -Wound Comment(s) sutures intact. WC - Nurse 3 - General Ulcer D/C NN Start: 07/12/23 08:46 Freq: Status: Active Protocol: Activity Type Activity Date Activity User E-sign Co-sign Detail Recorded Client Recorded Date Recorded By Document 07/12/23 09:10 Desktop 07/12/23 09:12 07/12/23 09:10 Wound Care Center Nurse 3 -Primary Dressing Applied Aquacel Extra, NonAdherent Contact Layer -Primary Dressing Covered/Secured with Dry Gauze & Roll Gauze, Secured with Tape -Aquacel Extra 1 Pain Scale: 0-10 Numeric Is Patient Pain Free? Yes WC - Visit Discharge Discharge Condition Stable Ambulatory Status Ambulatory Transportation Private Auto Medication Reconcilliation completed & No provided to patient/care provider Clinical Summary of Care Provided Yes Assessment/Plan Assessment/Plan (1) Hypertension: CODE(S): I10 - Essential (primary) hypertension (2) Morbid obesity with BMI of 40.0-44.9, adult: CODE(S): E66.01 - Morbid (severe) obesity due to excess calories; Z68.41 -Body mass index [BMI] 40.0-44.9, adult (3) Hallux malleus of right foot: CODE(S): M20.31 - Hallux varus (acquired), right foot (4) Type 2 diabetes mellitus with foot ulcer: CODE(S): E11.621 - Type 2 diabetes mellitus with foot ulcer; L97.509 - Non- pressure chronic ulcer of other part of unspecified foot with unspecified severity (5) Diabetes mellitus with diabetic polyneuropathy: CODE(S): E11.42 - Type 2 diabetes mellitus with diabetic polyneuropathy (6) Acquired hallux limitus of right foot: CODE(S): M20.5X1 - Other deformities of toe(s) (acquired), right foot (7) Non-pressure chronic ulcer of other part of right foot with fat layer exposed: CODE(S): L97.512 - Non-pressure chronic ulcer of other part of right foot with fat layer exposed (8) Gastrocnemius equinus of right lower extremity: CODE(S): M21.861 - Other specified acquired deformities of right lower leg PLAN: Plan Patient seen and evaluated. Patient was weight bearing in CAM boot with plantar offloading padding today I have reviewed the LEAS performed 01/17/2023 demonstrating: Left foot triphasic DP and PT on Doppler; Indices left foot PT- 1.05. DP 1.03, Digit 0.91; right foot triphasic DP and PT on Doppler; Indices foot PT 1.10, DP 1.16, digit noncompressible. PVR diminished at ankle and digit on left with noncompressible digit right foot. Impression no evidence of significant occlusive arterial disease. I have reviewed her culture results which were obtained 01/17/2023 demonstrating: Providencia rettgeri, Staph aureus, Stap agalactaie, and Kocuria kristinae. She was prescribed Augmentin [address] Omar MD. 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 She did apple picking supervisor antibiotic and has completed this antibiotic course. Following debridement cultures were obtained 03/01/23 due to her continued significant drainage. She was empirically started on oral doxycycline 100 mg p.o. twice daily x14 days and oral ciprofloxacin 500 mg p.o. twice daily x14 days. She states that she picked up oral abx and started on 03/08/23. Culture results demonstrate PsA, Providencia rettgeri, corynebacterium jeikeium, Staphylococcus cohnii urealyti, and anaerobic cocci. 03/22/2023 she completed antibiotic course and due to patient leaving [facility] antibiotic course was extended. She finished oral abx 04/05/23. She was instructed to stay off feet as much as possible to continue to aid in pressure reduction to the ulcerative site. Rx for knee scooter was written 03/29/23. She states she did get the knee scooter is using this to remain non-weight bearing to the right foot. She is not using this at all times. Ulceration demonstrated some macerated skin secondary to getting wet at last visit, this has improved today. Sutures currently intact. Discussed that she is at risk of tearing sutures again because she gets the site wet and does not stay off the foot. Sutures ruptured today with significant maceration. No signs of infection. Sutures removed today atraumatically. Macerated tissue debrided today in addition to wound debridement as stated in clinical panel above. Ulceration measures 0.4 cm x 0.5 cm x 0.1 cm. Cultures obtained today, 07/26/2023, awaiting results. Dakin's wet-to-dry dressing was applied to the wound and she is instructed to change this daily. Reminded her she is to remain nonweightbearing in the CAM boot for offloading with knee scooter assistance. Stressed importance of continuing knee scooter again today. She was instructed to continue offloading in CAM boot for the right lower extremity with plantar offloading padding for first metatarsal head. She was instructed to remain in the CAM boot at all times and not to wear flip-flops. She may remove the boot for shower purposes and sleeping. She voices understanding of this. Discussed that pressure reduction to the site is essential for her healing status. Discussed proper diabetic diet to maintain tight glycemic control. Last A1c 09/2022 was 7.0%. Discussed continued diet and exercise along with lifestyle modification/weight loss to aid in healthy lifestyle. Discussed importance of daily foot checks. Discussed adequate protein intake to aid in wound healing. She may take Jeremy supplementation to aid in wound healing. Discussed being diabetic she is never to go barefoot and should wear closed toed shoes at all times. Discussed with her socks is considered barefoot. Encouraged shoe gear to be worn at all times. She voices understanding of this. Recommend diabetic shoes with plantar offloading padding once ulceration has healed. Discussed signs and symptoms of infection. Discussed if she notices redness about the ulcerative site that moves to the top of the foot and up the foot, purulent drainage from the wound site, increasing foul odor, or if she experiences fever greater than 101 degree, nausea, vomiting, chills that these are signs of a progressing infection and she should report to the ED for IV antibiotics. She voices understanding of this today. The following work up and care recommendations were made: Dressing: Dakin's wet to dry dressing. Change daily. Wash: Soap and water Tissue growth optimization: None Offload: CAM boot with plantar offloading padding. Remain nonweightbearing to right lower extremity with assistance of knee scooter. Vascular: Palpable pedal pulses bilateral. LEAS obtained and reviewed from 01/17/2023 demonstrating no significant arterial occlusive disease. She is noted to have mild arterial disease of the popliteal/SFA bilateral. On Doppler DP and PT are triphasic bilateral. Edema: No edema noted Infection: No signs of infection Pain: May take [id number] Tylenol for discomfort Radiographs: 01/17/23 demonstrate no evidence of osteomyelitis; 03/20/23 no evidence of osteomyelitis Host factors: DM type II with peripheral polyneuropathy, hallux limitus right foot, hallux malleus right foot, morbid obesity, equinus deformity all complicated healing potential I answered all the patient's questions. To return to the wound healing center in 1 week or call sooner if the patient has any questions or concerns. 07/26/23 0920 <Electronically signed by Jared Gibbons DPM> Cosigner Signature (if applicable): CC: ~ Signed [facility] Work Phone: [phone] 368-781601-11-2024 Progress note Author Jared Shai [facility] July 19, 2023 9:11am Note Date/Time July 19, 2023 8 :52am [facility] [address] [place] [address] Progress Note - Wound Care 07/19/23 0851 MR#: [id number] Acct: [id number] Name: LUCRECIA HOU Rep #:[id number] : 1965 58 From: Jared worley DPM PCP: REX Castillo Status:REG RCR Location: History of Present Illness Date of Service: 07/19/23 Chief Complaint: Diabetic foot ulceration, right metatarsal-phalangeal joint, plantar surface History of Wound: This is a 58-year-old, morbidly-obese, diabetic female who presents with a largeulceration on the right great toe. The ulceration is located at the right firstmetatarsophalangeal joint, on the plantar surface. It has been present for approximately 4 months. According to the patient, it originated as a callus, and she ripped off the skin. She has been using Watkin's salve topically. 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 Her BMI is 41.8. Shedenies a history of smoking. She also denies a history of myocardial infarction, congestive heart failure, cerebrovascular accident, pulmonary disease,renal disease, and thyroid disease. Most recent hemoglobin A1c was 7.0 in September,. Laboratory studies obtained recently, dated January 03, 2023, are as follows: White blood count 8.7, hemoglobin 13.5, hematocrit 41.4, platelets 308,000, sodium 138, potassium 4.0, chloride 101, BUN 14, creatinine 0.65, glucose 140, calcium 9.3, bilirubin 0.40, AST 19, ALT 24, alkaline phosphatase 107, protein 7.8, albumin 3.3. Subjective Subjective This is a 58-year-old diabetic female who presents to the wound care center today for follow-up of a plantar first metatarsal head ulceration of the right foot. She has kept dressings clean, dry, and intact to the Right foot. She has continued to offload in the CAM boot with plantar offloading padding and remaining nonweightbearing to the right lower extremity with assistance of knee scooter. She states she has done a better job about not getting site wet. She denies any constitutional symptoms. She denies further complaints. Objective Data Objective Data Vital Signs: Vital Signs Temp Pulse Resp BP O2 Del Method 96.8 F L 82 18 177/81 H Room Air 07/19/23 08:43 07/19/23 08:43 07/19/23 08:43 07/19/23 08:43 07/19/23 08:43 Oxygen Delivery Method Room Air Weight: 110.677 kg Body Mass Index (BMI) 41.8 Physical Exam Const alert, oriented x3 and no apparent distress General Appearance: cooperative HEENT normocephalic Eyes General Eye: normal appearance of both eyes Neck General: normal visual inspection Lymph Lymphatic: no lymphadenopathy noted and no lymphedema noted Resp normal respiratory effort Cardio regular rate and regular rhythm Extremity normal capillary refill, no joint enlargement, no calf tenderness and no pedal edema Extremity Narrative: DP and PT pulses palpable bilateral. Capillary fill time to the digits less than 5 seconds bilateral. Hair growth diminished to the digits bilateral. Dermatological: Skin appears well-hydrated with normal turgor. Hyperkeratotic tissue Sub first metatarsal head of the left foot with no evidence of open wound. Sutures intact to plantar first metatarsal head right foot with skin wellcoapted. No signs of infection. Musculoskeletal: Muscle strength 5 of 5 age-appropriate. She does demonstrate decreased range of motion of the first metatarsophalangeal joint bilateral without pain or crepitus. Decreased range of motion of the ankle joint in dorsiflexion with the knee extended without pain or crepitus bilateral. Hammertoe deformity of the right hallux. No pain to palpation about the ulcerative site plantar first metatarsal head right foot Neuro moves all extremities Neuro Narrative: Decreased protective sensation secondary to diabetic peripheral polyneuropathy Debridement Note Debridement Note No debridement was completed: No debridement was completed today Post-Debridement Measurements and Additional Note: Post-Debridement Measurements/Treatment - Nurse 1 - General Ulcer Assessment Start: 07/12/23 08:46 Freq: Status: Active Protocol: RADHA.LOWEXT Activity Type Activity Date Activity User E-sign Co-sign Detail Recorded Client Recorded Date Recorded By Document 07/12/23 08:46 KW Desktop 07/12/23 08:52 KW Document 07/12/23 09:13 KW Desktop 07/12/23 09:14 KW Document 07/19/23 08:43 KW Desktop 07/19/23 08:47 KW 07/12/23 07/12/23 07/19/23 08:46 09:13 08:43 - Today's Visit Information Type of service Follow-up Visit Follow-up Visit (Physician/AUTOMOTIVE PROFESSIONAL (Physician/AUTOMOTIVE PROFESSIONAL ) ) Arrival Mode Ambulatory Ambulatory Patient Identification Verified (Name & Yes Yes ) Height and Weight Body Mass Index (BMI) 41.8 41.8 41.8 BMI Classification Obese Obese Obese Vital Signs Temperature (97.8 F-99.1 F) 96.8 F L Temperature Source Temporal Pulse Rate (60-100) 79 82 Pulse Location Monitor Monitor Respiratory Rate (12-18) 18 Respiratory rate source Observation Oxygen Delivery Method Room Air Blood Pressure (90/60-120/80) 165/81 H 177/81 H Blood Pressure Mean (mm Hg) 109 113 Source Monitor Monitor Position Semi-Fowlers Sitting Blood Pressure Location Left Arm Left Arm History Since Last Visit- (Skip if this is Patient's initial visit) Have you changed medications since your No No last visit? Any new allergies or adverse reactions No No Had a fall/change in ADL's that may No No increase risk of falls Signs or symptoms of abuse and/or No No neglect since last visit Have you been in the hospital since your No No last visit? Has dressing in place as prescribed Yes Yes Has compression in place as prescribed N/A No Has offloadiing in place as prescribed Yes Yes Experienced any changes in pain level or No management Left Footwear Regular Shoe Regular Shoe Right Footwear Removable Cast Removable Cast Walker/Walking Walker/Walking Boot Boot Pain Scale: 0-10 Numeric Is Patient Pain Free? Yes Yes Yes - Nurse 1 - General Ulcer Measurement Start: 07/12/23 08:46 Freq: Status: Active Protocol: Activity Type Activity Date Activity User E-sign Co-sign Detail Recorded Client Recorded Date Recorded By Document 07/12/23 08:46 KW Desktop 07/12/23 08:52 KW Document 07/19/23 08:43 KW Desktop 07/19/23 08:47 KW 07/12/23 07/19/23 08:46 08:43 Wound Center Nurse 1 #1 right plantar foot -Exudate Amt Small Small -Exudate Type Serosanguineous Serosanguineous -Texture (Kelsie-wound Skin Appearance) Callus -Ulcer Cleansing Rinsed/ Irrigated with Saline -Wound Comment(s) sutures intact. - Nurse 3 - General Ulcer D/C NN Start: 07/12/23 08:46 Freq: Status: Active Protocol: Activity Type Activity Date Activity User E-sign Co-sign Detail Recorded Client Recorded Date Recorded By Document 07/12/23 09:10 KW Desktop 07/12/23 09:12 KW 07/12/23 09:10 Wound Care Center Nurse 3 -Primary Dressing Applied Aquacel Extra, NonAdherent Contact Layer -Primary Dressing Covered/Secured with Dry Gauze & Roll Gauze, Secured with Tape -Aquacel Extra 1 Pain Scale: 0-10 Numeric Is Patient Pain Free? Yes - Visit Discharge Discharge Condition Stable Ambulatory Status Ambulatory Transportation Private Auto Medication Reconcilliation completed & No provided to patient/care provider Clinical Summary of Care Provided Yes Assessment/Plan Assessment/Plan (1) Hypertension: CODE(S): I10 - Essential (primary) hypertension (2) Morbid obesity with BMI of 40.0-44.9, adult: CODE(S): E66.01 - Morbid (severe) obesity due to excess calories; Z68.41 -Body mass index [BMI] 40.0-44.9, adult (3) Hallux malleus of right foot: CODE(S): M20.31 - Hallux varus (acquired), right foot (4) Type 2 diabetes mellitus with foot ulcer: CODE(S): E11.621 - Type 2 diabetes mellitus with foot ulcer; L97.509 - Non- pressure chronic ulcer of other part of unspecified foot with unspecified severity (5) Diabetes mellitus with diabetic polyneuropathy: CODE(S): E11.42 - Type 2 diabetes mellitus with diabetic polyneuropathy (6) Acquired hallux limitus of right foot: CODE(S): M20.5X1 - Other deformities of toe(s) (acquired), right foot (7) Non-pressure chronic ulcer of other part of right foot with fat layer exposed: CODE(S): L97.512 - Non-pressure chronic ulcer of other part of right foot with fat layer exposed (8) Gastrocnemius equinus of right lower extremity: CODE(S): M21.861 - Other specified acquired deformities of right lower leg PLAN: Plan Patient seen and evaluated. Patient was weight bearing in CAM boot with plantar offloading padding today I have reviewed the LEAS performed 01/17/2023 demonstrating: Left foot triphasic DP and PT on Doppler; Indices left foot PT- 1.05. DP 1.03, Digit 0.91; right foot triphasic DP and PT on Doppler; Indices foot PT 1.10, DP 1.16, digit noncompressible. PVR diminished at ankle and digit on left with noncompressible digit right foot. Impression no evidence of significant occlusive arterial disease. Reviewed diagnostic data from 01/17/2023 demonstrating WBC of 8.7 Radiographic imaging obtained 01/17/2023 demonstrating no evidence of osteomyelitis. I have reviewed this imaging and concur with the radiographic read. Updated radiograph of the right foot ordered 03/29/2023, radiograph demonstrates no signs of osteomyelitis. I have reviewed her culture results which were obtained 01/17/2023 demonstrating: Providencia rettgeri, Staph aureus, Stap agalactaie, and Kocuria kristinae. She was prescribed Augmentin [address] Omar MD. 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 She did apple picking supervisor antibiotic and has completed this antibiotic course. Following debridement cultures were obtained 03/01/23 due to her continued significant drainage. She was empirically started on oral doxycycline 100 mg p.o. twice daily x14 days and oral ciprofloxacin 500 mg p.o. twice daily x14 days. She states that she picked up oral abx and started on 03/08/23. Culture results demonstrate PsA, Providencia rettgeri, corynebacterium jeikeium, Staphylococcus cohnii urealyti, and anaerobic cocci. 03/22/2023 she completed antibiotic course and due to patient leaving town antibiotic course was extended. She finished oral abx 04/05/23. She was instructed to stay off feet as much as possible to continue to aid in pressure reduction to the ulcerative site. Rx for knee scooter was written 03/29/23. She states she did get the knee scooter is using this to remain non-weight bearing to the right foot. Ulceration demonstrated some macerated skin secondary to getting wet at last visit, this has improved today. Sutures currently intact. Discussed that she is at risk of tearing sutures again because she gets the site wet and does not stay off the foot. Sutures intact. No signs of infection. Dressings changed today consisting of SuperAbsorb and Duoderm and dry sterile dressing. She is to continue to keep dressings clean, dry, and intact to the right foot and remain offloaded in CAM boot and to be non-weight bearing to Right foot with assistance of knee scooter. Discussed removing sutures at next visit. Reminded her she is to remain nonweightbearing in the CAM boot for offloading with knee scooter assistance. Stressed importance of continuing knee scooter today. She was instructed to continue offloading in CAM boot for the right lower extremity with plantar offloading padding for first metatarsal head. She was instructed to remain in the CAM boot at all times and not to wear flip-flops. She may remove the boot for shower purposes and sleeping. She voices understanding of this. Discussed that pressure reduction to the site is essential for her healing status. Discussed proper diabetic diet to maintain tight glycemic control. Last A1c 09/2022 was 7.0%. Discussed continued diet and exercise along with lifestyle modification/weight loss to aid in healthy lifestyle. Discussed importance of daily foot checks. Discussed adequate protein intake to aid in wound healing. She may take Jeremy supplementation to aid in wound healing. Discussed being diabetic she is never to go barefoot and should wear closed toed shoes at all times. Discussed with her socks is considered barefoot. Encouraged shoe gear to be worn at all times. She voices understanding of this. Recommend diabetic shoes with plantar offloading padding once ulceration has healed. Discussed signs and symptoms of infection. Discussed if she notices redness about the ulcerative site that moves to the top of the foot and up the foot, purulent drainage from the wound site, increasing foul odor, or if she experiences fever greater than 101 degree, nausea, vomiting, chills that these are signs of a progressing infection and she should report to the ED for IV antibiotics. She voices understanding of this today. The following work up and care recommendations were made: Dressing: Betadine and dry sterile dressing. Leave intact. Wash: Do not get wet Tissue growth optimization: None Offload: CAM boot with plantar offloading padding. Remain nonweightbearing to right lower extremity with assistance of knee scooter. Vascular: Palpable pedal pulses bilateral. LEAS obtained and reviewed from 01/17/2023 demonstrating no significant arterial occlusive disease. She is noted to have mild arterial disease of the popliteal/SFA bilateral. On Doppler DP and PT are triphasic bilateral. Edema: No edema noted Infection: No signs of infection Pain: May take [id number] Tylenol for discomfort Host factors: DM type II with peripheral polyneuropathy, hallux limitus right foot, hallux malleus right foot, morbid obesity, equinus deformity all complicated healing potential I answered all the patient's questions. To return to the wound healing center in 1 week or call sooner if the patient has any questions or concerns. 07/19/23 0911 <Electronically signed by Jared Gibbons DPM> Cosigner Signature (if applicable): CC: ~ Signed [facility] Work Phone: 1(969) 502-413101-04-2024 Progress note Author Jared Gibbons [facility] July 12, 2023 9:27am Note Date/Time July 12, 2023 8: 54am [facility] [address] [place] [address] Progress Note - Wound Care 07/12/23 0847 MR#: [id number] Acct: [id number] Name: LUCRECIA HOU Rep #:[id number] : 1965 58 From: Jared worley DPM PCP: REX Castillo Status:REG RCR Location: History of Present Illness Date of Service: 07/12/23 Chief Complaint: Diabetic foot ulceration, right metatarsal-phalangeal joint, plantar surface History of Wound: This is a 58-year-old, morbidly-obese, diabetic female who presents with a largeulceration on the right great toe. The ulceration is located at the right firstmetatarsophalangeal joint, on the plantar surface. It has been present for approximately 4 months. According to the patient, it originated as a callus, and she ripped off the skin. She has been using Watkin's salve topically. 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 Her BMI is 41.8. Shedenies a history of smoking. She also denies a history of myocardial infarction, congestive heart failure, cerebrovascular accident, pulmonary disease,renal disease, and thyroid disease. Most recent hemoglobin A1c was 7.0 in September,. Laboratory studies obtained recently, dated January 03, 2023, are as follows: White blood count 8.7, hemoglobin 13.5, hematocrit 41.4, platelets 308,000, sodium 138, potassium 4.0, chloride 101, BUN 14, creatinine 0.65, glucose 140, calcium 9.3, bilirubin 0.40, AST 19, ALT 24, alkaline phosphatase 107, protein 7.8, albumin 3.3. Subjective Subjective This is a 58-year-old diabetic female who presents to the wound care center today for follow-up of a plantar first metatarsal head ulceration of the right foot. She has kept dressings clean, dry, and intact to the Right foot. She has continued to offload in the CAM boot with plantar offloading padding and remaining nonweightbearing to the right lower extremity with assistance of knee scooter. She states she is trying to do better about not getting site wet. Shedenies any constitutional symptoms. She denies further complaints. Objective Data Objective Data Vital Signs: Vital Signs Temp Pulse Resp BP 96.4 F L 81 18 176/95 H 07/09/23 00:14 07/09/23 00:14 07/09/23 00:14 07/09/23 00:14 Weight: 110.677 kg Body Mass Index (BMI) 41.8 Physical Exam Const alert, oriented x3 and no apparent distress General Appearance: cooperative HEENT normocephalic Eyes General Eye: normal appearance of both eyes Neck General: normal visual inspection Lymph Lymphatic: no lymphadenopathy noted and no lymphedema noted Resp normal respiratory effort Cardio regular rate and regular rhythm Extremity normal capillary refill, no joint enlargement, no calf tenderness and no pedal edema Extremity Narrative: DP and PT pulses palpable bilateral. Capillary fill time to the digits less than 5 seconds bilateral. Hair growth diminished to the digits bilateral. Dermatological: Skin appears well-hydrated with normal turgor. Hyperkeratotic tissue Sub first metatarsal head of the left foot with no evidence of open wound. Sutures intact to plantar first metatarsal head right foot with skin wellcoapted. No signs of infection. Musculoskeletal: Muscle strength 5 of 5 age-appropriate. She does demonstrate decreased range of motion of the first metatarsophalangeal joint bilateral without pain or crepitus. Decreased range of motion of the ankle joint in dorsiflexion with the knee extended without pain or crepitus bilateral. Hammertoe deformity of the right hallux. No pain to palpation about the ulcerative site plantar first metatarsal head right foot Neuro moves all extremities Neuro Narrative: Decreased protective sensation secondary to diabetic peripheral polyneuropathy Debridement Note Debridement Note No debridement was completed: No debridement was completed today Assessment/Plan Assessment/Plan (1) Hypertension: CODE(S): I10 - Essential (primary) hypertension (2) Morbid obesity with BMI of 40.0-44.9, adult: CODE(S): E66.01 - Morbid (severe) obesity due to excess calories; Z68.41 -Body mass index [BMI] 40.0-44.9, adult (3) Hallux malleus of right foot: CODE(S): M20.31 - Hallux varus (acquired), right foot (4) Type 2 diabetes mellitus with foot ulcer: CODE(S): E11.621 - Type 2 diabetes mellitus with foot ulcer; L97.509 - Non- pressure chronic ulcer of other part of unspecified foot with unspecified severity (5) Diabetes mellitus with diabetic polyneuropathy: CODE(S): E11.42 - Type 2 diabetes mellitus with diabetic polyneuropathy (6) Acquired hallux limitus of right foot: CODE(S): M20.5X1 - Other deformities of toe(s) (acquired), right foot (7) Non-pressure chronic ulcer of other part of right foot with fat layer exposed: CODE(S): L97.512 - Non-pressure chronic ulcer of other part of right foot with fat layer exposed (8) Gastrocnemius equinus of right lower extremity: CODE(S): M21.861 - Other specified acquired deformities of right lower leg PLAN: Plan Patient seen and evaluated. Patient was weight bearing in CAM boot with plantar offloading padding today I have reviewed the LEAS performed 01/17/2023 demonstrating: Left foot triphasic DP and PT on Doppler; Indices left foot PT- 1.05. DP 1.03, Digit 0.91; right foot triphasic DP and PT on Doppler; Indices foot PT 1.10, DP 1.16, digit noncompressible. PVR diminished at ankle and digit on left with noncompressible digit right foot. Impression no evidence of significant occlusive arterial disease. Reviewed diagnostic data from 01/17/2023 demonstrating WBC of 8.7 Radiographic imaging obtained 01/17/2023 demonstrating no evidence of osteomyelitis. I have reviewed this imaging and concur with the radiographic read. Updated radiograph of the right foot ordered 03/29/2023, radiograph demonstrates no signs of osteomyelitis. I have reviewed her culture results which were obtained 01/17/2023 demonstrating: Providencia rettgeri, Staph aureus, Stap agalactaie, and Kocuria kristinae. She was prescribed Augmentin [address] Omar MD. 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 She did apple picking supervisor antibiotic and has completed this antibiotic course. Following debridement cultures were obtained 03/01/23 due to her continued significant drainage. She was empirically started on oral doxycycline 100 mg p.o. twice daily x14 days and oral ciprofloxacin 500 mg p.o. twice daily x14 days. She states that she picked up oral abx and started on 03/08/23. Culture results demonstrate PsA, Providencia rettgeri, corynebacterium jeikeium, Staphylococcus cohnii urealyti, and anaerobic cocci. 03/22/2023 she completed antibiotic course and due to patient leaving town antibiotic course was extended. She will finished oral abx 04/05/23. She was instructed to stay off feet as much as possible to continue to aid in pressure reduction to the ulcerative site. Rx for knee scooter was written 03/29/23. She states she did get the knee scooter is using this to remain non-weight bearing to the right foot. Ulceration demonstrated some macerated skin secondary to getting wet. Sutures currently intact. Discussed that she is at risk of tearing sutures again because she gets the site wet and does not stay off the foot. Sutures intact. No signs of infection. Dressings changed today consisting of Betadine soaked Adaptic, Aquacel Ag and dry sterile dressing. She is to continue to keep dressings clean, dry, and intact to the right foot and remain offloaded in CAM boot and to be non-weight bearing to Right foot with assistance of knee scooter. Reminded her she is to remain nonweightbearing in the CAM boot for offloading with knee scooter assistance. Stressed importance of continuing knee scooter today. She was instructed to continue offloading in CAM boot for the right lower extremity with plantar offloading padding for first metatarsal head. She was instructed to remain in the CAM boot at all times and not to wear flip-flops. She may remove the boot for shower purposes and sleeping. She voices understanding of this. Discussed that pressure reduction to the site is essential for her healing status. Discussed proper diabetic diet to maintain tight glycemic control. Last A1c 09/2022 was 7.0%. Discussed continued diet and exercise along with lifestyle modification/weight loss to aid in healthy lifestyle. Discussed importance of daily foot checks. Discussed adequate protein intake to aid in wound healing. She may take Jeremy supplementation to aid in wound healing. Discussed being diabetic she is never to go barefoot and should wear closed toed shoes at all times. Discussed with her socks is considered barefoot. Encouraged shoe gear to be worn at all times. She voices understanding of this. Recommend diabetic shoes with plantar offloading padding once ulceration has healed. Discussed signs and symptoms of infection. Discussed if she notices redness about the ulcerative site that moves to the top of the foot and up the foot, purulent drainage from the wound site, increasing foul odor, or if she experiences fever greater than 101 degree, nausea, vomiting, chills that these are signs of a progressing infection and she should report to the ED for IV antibiotics. She voices understanding of this today. The following work up and care recommendations were made: Dressing: Betadine and dry sterile dressing. Leave intact. Wash: Do not get wet Tissue growth optimization: None Offload: CAM boot with plantar offloading padding. Remain nonweightbearing to right lower extremity with assistance of knee scooter. Vascular: Palpable pedal pulses bilateral. LEAS obtained and reviewed from 01/17/2023 demonstrating no significant arterial occlusive disease. She is noted to have mild arterial disease of the popliteal/SFA bilateral. On Doppler DP and PT are triphasic bilateral. Edema: No edema noted Infection: No signs of infection Pain: May take unij-rbw-oyjaiqi Tylenol for discomfort Host factors: DM type II with peripheral polyneuropathy, hallux limitus right foot, hallux malleus right foot, morbid obesity, equinus deformity all complicated healing potential I answered all the patient's questions. To return to the wound healing center in 1 week or call sooner if the patient has any questions or concerns. 07/12/23926 <Electronically signed by Jared Gibbons DPM> Cosigner Signature (if applicable): CC: ~ Signed [facility] Work Phone: 1(813) 471-395212-28-2023 Progress note Author Jared Gibbons [facility] July 05, 2023 9:34am Note Date/Time July 05, 2023 9:16am [facility] [address] [place] [address] Progress Note - Wound Care 07/05/2316 MR#: [id number] Acct: [id number] Name: LUCRECIA HOU Rep #:[id number] : 1965 58 From: Jared worley DPM PCP: REX Castillo Status:REG RCR Location: History of Present Illness Date of Service: 07/05/23 Chief Complaint: Diabetic foot ulceration, right metatarsal-phalangeal joint, plantar surface History of Wound: This is a 58-year-old, morbidly-obese, diabetic female who presents with a largeulceration on the right great toe. The ulceration is located at the right firstmetatarsophalangeal joint, on the plantar surface. It has been present for approximately 4 months. According to the patient, it originated as a callus, and she ripped off the skin. She has been using Watkin's salve topically. 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 Her BMI is 41.8. Shedenies a history of smoking. She also denies a history of myocardial infarction, congestive heart failure, cerebrovascular accident, pulmonary disease,renal disease, and thyroid disease. Most recent hemoglobin A1c was 7.0 in September,. Laboratory studies obtained recently, dated January 03, 2023, are as follows: White blood count 8.7, hemoglobin 13.5, hematocrit 41.4, platelets 308,000, sodium 138, potassium 4.0, chloride 101, BUN 14, creatinine 0.65, glucose 140, calcium 9.3, bilirubin 0.40, AST 19, ALT 24, alkaline phosphatase 107, protein 7.8, albumin 3.3. Subjective Subjective This is a 58-year-old diabetic female who presents to the wound care center today for follow-up of a plantar first metatarsal head ulceration of the right foot. She has kept dressings clean, dry, and intact to the Right foot. She has continued to offload in the CAM boot with plantar offloading padding and remaining nonweightbearing to the right lower extremity with assistance of knee scooter. States foot did get a little wet recently and thinks she split stitches. She denies any constitutional symptoms. She denies further complaints. Objective Data Objective Data Vital Signs: Vital Signs Temp Pulse Resp BP O2 Del Method 96.4 F L 81 18 176/95 H Room Air 07/05/23 08:45 07/05/23 08:45 07/05/23 08:45 07/05/23 08:45 06/21/23 08:37 Oxygen Delivery Method Room Air Weight: 110.677 kg Body Mass Index (BMI) 41.8 Physical Exam Const alert, oriented x3, no apparent distress and well nourished General Appearance: cooperative HEENT normocephalic Eyes General Eye: normal appearance of both eyes Neck General: normal visual inspection Lymph Lymphatic: no lymphadenopathy noted and no lymphedema noted Resp normal respiratory effort Cardio regular rate and regular rhythm Extremity normal capillary refill, no joint enlargement, no calf tenderness and no pedal edema Extremity Narrative: DP and PT pulses palpable bilateral. Capillary fill time to the digits less than 5 seconds bilateral. Hair growth diminished to the digits bilateral. Dermatological: Skin appears well-hydrated with normal turgor. Hyperkeratotic tissue Sub first metatarsal head of the left foot with no evidence of open wound. Sutures intact to plantar first metatarsal head right foot with skin wellcoapted. No signs of infection. Musculoskeletal: Muscle strength 5 of 5 age-appropriate. She does demonstrate decreased range of motion of the first metatarsophalangeal joint bilateral without pain or crepitus. Decreased range of motion of the ankle joint in dorsiflexion with the knee extended without pain or crepitus bilateral. Hammertoe deformity of the right hallux. No pain to palpation about the ulcerative site plantar first metatarsal head right foot Skin no rashes or lesions noted, skin turgor normal and no jaundice Neuro moves all extremities Neuro Narrative: Decreased protective sensation secondary to diabetic peripheral polyneuropathy Debridement Note Debridement Note Wound debrided: Subfirst metatarsal head Laterality: Right Wound Grade/Stage: Nichols stage I Type of Debridement: Excisional debridement Anesthesia Used: 5% Lidocaine Gel Depth: Down to and including healthy tissue and in the subcutaneous layer Percentage of wound debrided: 100 Instrument Used: #15 blade Tissue Removed: Fibrous, devitalized subcutaneous, biofilm, slough Severity: Fat Layer Exposed Amount of bleeding with debridement: Mild Bleeding Controlled with: Compression and gauze Patient tolerated procedure: Patient tolerated procedure well Post-Debridement Measurements and Additional Note: Post-Debridement Measurements/Treatment RADHA - Nurse 1 - General Ulcer Assessment Start: 06/14/23 08:44 Freq: Status: Active Protocol: JAXSON Activity Type Activity Date Activity User E-sign Co-sign Detail Recorded Client Recorded Date Recorded By Document 06/14/23 08:44 GM Desktop 06/14/23 08:50 GM Document 06/21/23 08:37 KW Desktop 06/21/23 08:46 KW Document 07/05/23 08:45 Desktop 07/05/23 08:48 JF 06/14/23 06/21/23 07/05/23 08:44 08:37 08:45 WC - Today's Visit Information Type of service Follow-up Visit Follow-up Visit Follow-up Visit (Physician/AUTOMOTIVE PROFESSIONAL (Physician/AUTOMOTIVE PROFESSIONAL (Physician/AUTOMOTIVE PROFESSIONAL ) ) ) Arrival Mode Ambulatory Ambulatory Ambulatory Transfer Assistance None Patient Identification Verified (Name & Yes Yes Yes ) Patient Requires Transmission-Based No No Precautions Height and Weight Body Mass Index (BMI) 41.8 41.8 41.8 BMI Classification Obese Obese Obese Vital Signs Temperature (97.8 F-99.1 F) 95.6 F L 96.7 F L 96.4 F L Temperature Source Temporal Temporal Temporal Pulse Rate (60-100) 82 89 81 Pulse Location Monitor Monitor Monitor Respiratory Rate (12-18) 18 18 18 Respiratory rate source Observation Observation Observation Oxygen Delivery Method Room Air Room Air Blood Pressure (90/60-120/80) 189/79 H 170/88 H 176/95 H Blood Pressure Mean (mm Hg) 115 115 122 Source Monitor Monitor Monitor Position Sitting Sitting Sitting Blood Pressure Location Left Arm Left Arm Right Arm History Since Last Visit- (Skip if this is Patient's initial visit) Have you changed medications since your No No No last visit? Any new allergies or adverse reactions No No No Had a fall/change in ADL's that may No No No increase risk of falls Signs or symptoms of abuse and/or No No No neglect since last visit Have you been in the hospital since your No No No last visit? Has dressing in place as prescribed Yes Yes Has compression in place as prescribed N/A No Yes Has offloadiing in place as prescribed Yes Yes Yes Experienced any changes in pain level or No No Yes management Left Footwear Regular Shoe Regular Shoe Regular Shoe Right Footwear Removable Cast Removable Cast Removable Cast Walker/Walking Walker/Walking Walker/Walking Boot Boot Boot Pain Scale: 0-10 Numeric Is Patient Pain Free? Yes Yes Yes - Nurse 1 - General Ulcer Measurement Start: 06/14/23 08:44 Freq: Status: Active Protocol: Activity Type Activity Date Activity User E-sign Co-sign Detail Recorded Client Recorded Date Recorded By Document 06/14/23 08:44 GM Desktop 06/14/23 08:50 GM Document 06/21/23 08:37 KW Desktop 06/21/23 08:46 KW Document 07/05/23 08:45 JF Desktop 07/05/23 08:48 JF 06/14/23 06/21/23 07/05/23 08:44 08:37 08:45 Wound Center Nurse 1 # 2 Right lateral plantar -Current Size (cm) - Length 0.8 -Current Size (cm) - Width 0.1 -Current Size (cm) - Depth 0.3 -Total Square Cm 0.08 -Photo Taken No -Epithelialization Small 1-33% -Tunneling No -Undermining/Tunneling Yes -Undermining/Tunneling Starts (O'clock 9 ) -Undermining/Tunneling Ends (O'clock) 12 -Maximum Distance (cm) 0.5 -Circular Undermining No -Exudate Amt Small -Exudate Type Yellow/Green -Wound Margin Distinct, Outline Attached -Granulation Amt Medium (34-66%) -Granulation Quality Red -Necrosis Amt Small (1-33%) -Structure Exposed N/A -Texture (Kelsie-wound Skin Appearance) Assessed -Moisture (Kelsie-wound Skin Appearance) Assessed -Color (Kelsie-wound Skin Appearance) Assessed -Temperature (Kelsie-wound Skin No Abnormality Appearance) (Pt Warm) -Tenderness on Palpation (Kelsie-wound No Skin Appearance) -Ulcer Cleansing Soap and Water -Foul Odor after Cleansing No -Anesthetic Used 5% Lidocaine Gel #1 right plantar foot -Combined with other wound No -Current Size (cm) - Length 0.1 -Current Size (cm) - Width 0.1 -Current Size (cm) - Depth 0.1 -Total Square Cm 0.01 -Photo Taken No -Epithelialization None Present -Tunneling No -Undermining/Tunneling No -Circular Undermining No -Exudate Amt None Present -Wound Margin Indistinct, Non -Visible -Granulation Amt None Present (0 %) -Slough/Fibrin No -Structure Exposed N/A -Texture (Kelsie-wound Skin Appearance) Assessed,Callus -Moisture (Kelsie-wound Skin Appearance) Assessed,Dry/ Scaly -Color (Kelsie-wound Skin Appearance) Assessed -Temperature (Kelsie-wound Skin No Abnormality Appearance) (Pt Warm) -Tenderness on Palpation (Kelsie-wound No Skin Appearance) -Ulcer Cleansing Rinsed/ Irrigated with Saline -Foul Odor after Cleansing No -Wound Comment(s) wound is sutured, intact Lower Limb Edema Present NA - Nurse 2 - General Ulcer CM Notes Start: 06/14/23 08:44 Freq: Status: Active Protocol: Activity Type Activity Date Activity User E-sign Co-sign Detail Recorded Client Recorded Date Recorded By Document 06/14/23 10:24 PL [id number] 06/14/23 10:25 PL 06/14/23 10:24 Wound Center Nurse 2 #1 right plantar foot -Time 09:13 -Correct Patient Yes -Correct Side, Site, Position Yes -Correct Procedure Yes -Procedure Performed Yes -Type of Procedure Debridement -Clinical Debridement Subcutaneous -Tissue Removed Subcutaneous -Post Debridement (cm) - Length 0.5 -Post Debridement (cm) - Width 0.2 -Post Debridement (cm) - Depth 0.1 -Total Square (Post) (cm) 0.10 -Area of Debridement (cm) - Length 0.5 -Area of Debridement (cm) - Width 0.2 -Total Square (Area) (cm) 0.10 -Tunneling No -Undermining/Tunneling No -Circular Undermining No -Wound/Ulcer Outcome Not Healed -Ulcer Cleansing Rinsed/ Irrigated with Saline -Foul Odor after Cleansing No -Bioengineered Tissue No -Bleeding Controlled with Pressure -Treatment Response Procedure Tolerated Well -Debridement - Subq, 1st 20sq cm Yes Pain Scale: 0-10 Numeric Is Patient Pain Free? Yes - Nurse 3 - General Ulcer D/C NN Start: 06/14/23 08:44 Freq: Status: Active Protocol: Activity Type Activity Date Activity User E-sign Co-sign Detail Recorded Client Recorded Date Recorded By Document 06/14/23 09:35 DL Desktop 06/14/23 09:37 DL Document 06/21/23 09:00 BM Desktop 06/21/23 09:01 BMF 06/14/23 06/21/23 09:35 09:00 Wound Care Center Nurse 3 #1 right plantar foot -Ulcer Cleansing Soap and Water Not Cleansed -Foul Odor after Cleansing No -Primary Dressing Applied NonAdherent Contact Layer -Other Dressing betadine paint -Primary Dressing Covered/Secured with Dry Gauze & Dry Gauze & Roll Gauze, Roll Gauze, Secured with Secured with Tape Tape -Other Covering sutured Treatment Response Procedure Procedure Tolerated Well Tolerated Well Pain Scale: 0-10 Numeric Is Patient Pain Free? Yes Yes WC - Visit Discharge Discharge Condition Stable Stable Ambulatory Status Walker Ambulatory Transportation Private Auto Private Auto Assessment/Plan Assessment/Plan (1) Morbid obesity with BMI of 40.0-44.9, adult: CODE(S): E66.01 - Morbid (severe) obesity due to excess calories; Z68.41 -Body mass index [BMI] 40.0-44.9, adult (2) Hypertension: CODE(S): I10 - Essential (primary) hypertension (3) Gastrocnemius equinus of right lower extremity: CODE(S): M21.861 - Other specified acquired deformities of right lower leg (4) Non-pressure chronic ulcer of other part of right foot with fat layer exposed: CODE(S): L97.512 - Non-pressure chronic ulcer of other part of right foot with fat layer exposed (5) Acquired hallux limitus of right foot: CODE(S): M20.5X1 - Other deformities of toe(s) (acquired), right foot (6) Hallux malleus of right foot: CODE(S): M20.31 - Hallux varus (acquired), right foot (7) Type 2 diabetes mellitus with foot ulcer: CODE(S): E11.621 - Type 2 diabetes mellitus with foot ulcer; L97.509 - Non- pressure chronic ulcer of other part of unspecified foot with unspecified severity (8) Diabetes mellitus with diabetic polyneuropathy: CODE(S): E11.42 - Type 2 diabetes mellitus with diabetic polyneuropathy PLAN: Plan Patient seen and evaluated. Patient was non-weight bearing in CAM boot with plantar offloading padding and knee scooter today I have reviewed the LEAS performed 01/17/2023 demonstrating: Left foot triphasic DP and PT on Doppler; Indices left foot PT- 1.05. DP 1.03, Digit 0.91; right foot triphasic DP and PT on Doppler; Indices foot PT 1.10, DP 1.16, digit noncompressible. PVR diminished at ankle and digit on left with noncompressible digit right foot. Impression no evidence of significant occlusive arterial disease. Reviewed diagnostic data from 01/17/2023 demonstrating WBC of 8.7 Radiographic imaging obtained 01/17/2023 demonstrating no evidence of osteomyelitis. I have reviewed this imaging and concur with the radiographic read. Updated radiograph of the right foot ordered 03/29/2023, radiograph demonstrates no signs of osteomyelitis. I have reviewed her culture results which were obtained 01/17/2023 demonstrating: Providencia rettgeri, Staph aureus, Stap agalactaie, and Kocuria kristinae. She was prescribed Augmentin [address] Omar MD. 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 She did apple picking supervisor antibiotic and has completed this antibiotic course. Ulceration demonstrated macerated skin secondary to getting wet with torn sutures. Sutures were removed and ulceration underwent debridement on today. No signs of infection. Ulceration measures 1.0 cm x 0.4 cm x 0.1 cm. Skin was prepped with 70% isopropyl rubbing alcohol and a local anesthetic was given about the wound site consisting of 3 cc 1% lidocaine plain and following debridement of the superficial ulceration the skin was reapproximated with delayed primary closure utilizing a 2-0 Prolene in simple interrupted fashion. She was instructed to keep the site clean, dry, intact. Sutures placed today with skin well coapted. No signs of infection. Dressings changed today consisting of Betadine soaked Adaptic, and dry sterile dressing. She is to continue to keep dressings clean, dry, and intact to the right foot and remain offloaded in cam boot. Following debridement cultures were obtained 03/01/23 due to her continued significant drainage. She was empirically started on oral doxycycline 100 mg p.o. twice daily x14 days and oral ciprofloxacin 500 mg p.o. twice daily x14 days. She states that she picked up oral abx and started on 03/08/23. Culture results demonstrate PsA, Providencia rettgeri, corynebacterium jeikeium, Staphylococcus cohnii urealyti, and anaerobic cocci. 03/22/2023 she completed antibiotic course and due to patient leaving town antibiotic course was extended. She will finished oral abx 04/05/23. Ulceration underwent debridement as noted in the clinical panel above. Ulcerative site demonstrates healthy granular base with surrounding hyperkeratosis. No signs of infection. Ulceration measures 0.5 cm x 0.2 cm x 0.1 cm. Skin was prepped with 70% isopropyl rubbing alcohol and a local anesthetic was given about the wound site consisting of 3 cc 1% lidocaine plain and following debridement of the superficial ulceration the skin was reapproximated with delayed primary closure utilizing a 2-0 Prolene in simple interrupted fashion. She was instructed to keep the site clean, dry, intact. She was instructed to stay off feet as much as possible to continue to aid in pressure reduction to the ulcerative site. Rx for knee scooter was written 03/29/23. She states she did get the knee scooter is using this to remain non-weight bearing to the right foot. Reminded her she is to remain nonweightbearing in the CAM boot for offloading with knee scooter assistance. Stressed importance of continuing knee scooter today. She was instructed to continue offloading in CAM boot for the right lower extremity with plantar offloading padding for first metatarsal head. She was instructed to remain in the CAM boot at all times and not to wear flip-flops. She may remove the boot for shower purposes and sleeping. She voices understanding of this. Discussed that pressure reduction to the site is essential for her healing status. Discussed proper diabetic diet to maintain tight glycemic control. Last A1c 09/2022 was 7.0%. Discussed continued diet and exercise along with lifestyle modification/weight loss to aid in healthy lifestyle. Discussed importance of daily foot checks. Discussed adequate protein intake to aid in wound healing. She may take Jeremy supplementation to aid in wound healing. Discussed being diabetic she is never to go barefoot and should wear closed toed shoes at all times. Discussed with her socks is considered barefoot. Encouraged shoe gear to be worn at all times. She voices understanding of this. Recommend diabetic shoes with plantar offloading padding once ulceration has healed. Discussed signs and symptoms of infection. Discussed if she notices redness about the ulcerative site that moves to the top of the foot and up the foot, purulent drainage from the wound site, increasing foul odor, or if she experiences fever greater than 101 degree, nausea, vomiting, chills that these are signs of a progressing infection and she should report to the ED for IV antibiotics. She voices understanding of this today. The following work up and care recommendations were made: Dressing: Betadine and dry sterile dressing. Leave intact. Wash: Do not get wet Tissue growth optimization: None Offload: CAM boot with plantar offloading padding. Remain nonweightbearing to right lower extremity with assistance of knee scooter. Vascular: Palpable pedal pulses bilateral. LEAS obtained and reviewed from 01/17/2023 demonstrating no significant arterial occlusive disease. She is noted to have mild arterial disease of the popliteal/SFA bilateral. On Doppler DP and PT are triphasic bilateral. Edema: No edema noted Infection: No signs of infection Pain: May take [id number] Tylenol for discomfort Host factors: DM type II with peripheral polyneuropathy, hallux limitus right foot, hallux malleus right foot, morbid obesity, equinus deformity all complicated healing potential I answered all the patient's questions. To return to the wound healing center in 1 week or call sooner if the patient has any questions or concerns. 07/05/23 0934 <Electronically signed by Jared Gibbons DPM> Cosigner Signature (if applicable): CC: ~ Signed [facility] Work Phone: [phone] [phone] Progress note Author Jared Gibbons [facility] June 21, 2023 8:59am Note Date/Time June 21, 2023 8:59am [facility] [address] [place] [address] Progress Note - Wound Care 06/21/23 0852 MR#: [id number] Acct: [id number] Name: LUCRECIA HOU Rep #:[id number] : 1965 58 From: Jared worley DPM PCP: REX Castillo Status:REG RCR Location: History of Present Illness Date of Service: 06/21/23 Chief Complaint: Diabetic foot ulceration, right metatarsal-phalangeal joint, plantar surface History of Wound: This is a 58-year-old, morbidly-obese, diabetic female who presents with a largeulceration on the right great toe. The ulceration is located at the right firstmetatarsophalangeal joint, on the plantar surface. It has been present for approximately 4 months. According to the patient, it originated as a callus, and she ripped off the skin. She has been using Watkin's salve topically. 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 Her BMI is 41.8. Shedenies a history of smoking. She also denies a history of myocardial infarction, congestive heart failure, cerebrovascular accident, pulmonary disease,renal disease, and thyroid disease. Most recent hemoglobin A1c was 7.0 in September,. Laboratory studies obtained recently, dated January 03, 2023, are as follows: White blood count 8.7, hemoglobin 13.5, hematocrit 41.4, platelets 308,000, sodium 138, potassium 4.0, chloride 101, BUN 14, creatinine 0.65, glucose 140, calcium 9.3, bilirubin 0.40, AST 19, ALT 24, alkaline phosphatase 107, protein 7.8, albumin 3.3. Subjective Subjective This is a 58-year-old diabetic female who presents to the wound care center today for follow-up of a plantar first metatarsal head ulceration of the right foot. She has kept dressings clean, dry, and intact to the Right foot. She has continued to offload in the CAM boot with plantar offloading padding and remaining nonweightbearing to the right lower extremity with assistance of knee scooter. She denies any constitutional symptoms. She denies further complaints. Objective Data Objective Data Vital Signs: Vital Signs Temp Pulse Resp BP O2 Del Method 96.7 F L 89 18 170/88 H Room Air 06/21/23 08:37 06/21/23 08:37 06/21/23 08:37 06/21/23 08:37 06/21/23 08:37 Oxygen Delivery Method Room Air Weight: 110.677 kg Body Mass Index (BMI) 41.8 Physical Exam Const alert, oriented x3, no apparent distress and well nourished General Appearance: cooperative HEENT normocephalic Eyes General Eye: normal appearance of both eyes Neck General: normal visual inspection Lymph Lymphatic: no lymphadenopathy noted and no lymphedema noted Resp normal respiratory effort Cardio regular rate and regular rhythm Extremity normal capillary refill, no joint enlargement, no calf tenderness and no pedal edema Extremity Narrative: DP and PT pulses palpable bilateral. Capillary fill time to the digits less than 5 seconds bilateral. Hair growth diminished to the digits bilateral. Dermatological: Skin appears well-hydrated with normal turgor. Hyperkeratotic tissue Sub first metatarsal head of the left foot with no evidence of open wound. Sutures intact to plantar first metatarsal head right foot with skin wellcoapted. No signs of infection. Musculoskeletal: Muscle strength 5 of 5 age-appropriate. She does demonstrate decreased range of motion of the first metatarsophalangeal joint bilateral without pain or crepitus. Decreased range of motion of the ankle joint in dorsiflexion with the knee extended without pain or crepitus bilateral. Hammertoe deformity of the right hallux. No pain to palpation about the ulcerative site plantar first metatarsal head right foot Skin no rashes or lesions noted, skin turgor normal and no jaundice Neuro moves all extremities Neuro Narrative: Decreased protective sensation secondary to diabetic peripheral polyneuropathy Debridement Note Debridement Note No debridement was completed: No debridement was completed today Post-Debridement Measurements and Additional Note: Post-Debridement Measurements/Treatment WC - Nurse 1 - General Ulcer Assessment Start: 06/14/23 08:44 Freq: Status: Active Protocol: RADHA.LOWVERONICA Activity Type Activity Date Activity User E-sign Co-sign Detail Recorded Client Recorded Date Recorded By Document 06/14/23 08:44 GM Desktop 06/14/23 08:50 GM Document 06/21/23 08:37 KW Desktop 06/21/23 08:46 KW 06/14/23 06/21/23 08:44 08:37 - Today's Visit Information Type of service Follow-up Visit Follow-up Visit (Physician/AUTOMOTIVE PROFESSIONAL (Physician/AUTOMOTIVE PROFESSIONAL ) ) Arrival Mode Ambulatory Ambulatory Transfer Assistance None Patient Identification Verified (Name & Yes Yes ) Patient Requires Transmission-Based No Precautions Height and Weight Body Mass Index (BMI) 41.8 41.8 BMI Classification Obese Obese Vital Signs Temperature (97.8 F-99.1 F) 95.6 F L 96.7 F L Temperature Source Temporal Temporal Pulse Rate (60-100) 82 89 Pulse Location Monitor Monitor Respiratory Rate (12-18) 18 18 Respiratory rate source Observation Observation Oxygen Delivery Method Room Air Room Air Blood Pressure (90/60-120/80) 189/79 H 170/88 H Blood Pressure Mean (mm Hg) 115 115 Source Monitor Monitor Position Sitting Sitting Blood Pressure Location Left Arm Left Arm History Since Last Visit- (Skip if this is Patient's initial visit) Have you changed medications since your No No last visit? Any new allergies or adverse reactions No No Had a fall/change in ADL's that may No No increase risk of falls Signs or symptoms of abuse and/or No No neglect since last visit Have you been in the hospital since your No No last visit? Has dressing in place as prescribed Yes Yes Has compression in place as prescribed N/A No Has offloadiing in place as prescribed Yes Yes Experienced any changes in pain level or No No management Left Footwear Regular Shoe Regular Shoe Right Footwear Removable Cast Removable Cast Walker/Walking Walker/Walking Boot Boot Pain Scale: 0-10 Numeric Is Patient Pain Free? Yes Yes WC - Nurse 1 - General Ulcer Measurement Start: 06/14/23 08:44 Freq: Status: Active Protocol: Activity Type Activity Date Activity User E-sign Co-sign Detail Recorded Client Recorded Date Recorded By Document 06/14/23 08:44 GM Desktop 06/14/23 08:50 GM Document 06/21/23 08:37 KW Desktop 06/21/23 08:46 KW 06/14/23 06/21/23 08:44 08:37 Wound Center Nurse 1 # 2 Right lateral plantar -Current Size (cm) - Length 0.8 -Current Size (cm) - Width 0.1 -Current Size (cm) - Depth 0.3 -Total Square Cm 0.08 -Photo Taken No -Epithelialization Small 1-33% -Tunneling No -Undermining/Tunneling Yes -Undermining/Tunneling Starts (O'clock 9 ) -Undermining/Tunneling Ends (O'clock) 12 -Maximum Distance (cm) 0.5 -Circular Undermining No -Exudate Amt Small -Exudate Type Yellow/Green -Wound Margin Distinct, Outline Attached -Granulation Amt Medium (34-66%) -Granulation Quality Red -Necrosis Amt Small (1-33%) -Structure Exposed N/A -Texture (Kelsie-wound Skin Appearance) Assessed -Moisture (Kelsie-wound Skin Appearance) Assessed -Color (Kelsie-wound Skin Appearance) Assessed -Temperature (Kelsie-wound Skin No Abnormality Appearance) (Pt Warm) -Tenderness on Palpation (Kelsie-wound No Skin Appearance) -Ulcer Cleansing Soap and Water -Foul Odor after Cleansing No -Anesthetic Used 5% Lidocaine Gel #1 right plantar foot -Wound Comment(s) wound is sutured, intact WC - Nurse 2 - General Ulcer CM Notes Start: 06/14/23 08:44 Freq: Status: Active Protocol: Activity Type Activity Date Activity User E-sign Co-sign Detail Recorded Client Recorded Date Recorded By Document 06/14/23 10:24 PL [id number] 06/14/23 10:25 PL 06/14/23 10:24 Wound Center Nurse 2 -Time 09:13 -Correct Patient Yes -Correct Side, Site, Position Yes -Correct Procedure Yes -Procedure Performed Yes -Type of Procedure Debridement -Clinical Debridement Subcutaneous -Tissue Removed Subcutaneous -Post Debridement (cm) - Length 0.5 -Post Debridement (cm) - Width 0.2 -Post Debridement (cm) - Depth 0.1 -Total Square (Post) (cm) 0.10 -Area of Debridement (cm) - Length 0.5 -Area of Debridement (cm) - Width 0.2 -Total Square (Area) (cm) 0.10 -Tunneling No -Undermining/Tunneling No -Circular Undermining No -Wound/Ulcer Outcome Not Healed -Ulcer Cleansing Rinsed/ Irrigated with Saline -Foul Odor after Cleansing No -Bioengineered Tissue No -Bleeding Controlled with Pressure -Treatment Response Procedure Tolerated Well -Debridement - Subq, 1st 20sq cm Yes Pain Scale: 0-10 Numeric Is Patient Pain Free? Yes WC - Nurse 3 - General Ulcer D/C NN Start: 06/14/23 08:44 Freq: Status: Active Protocol: Activity Type Activity Date Activity User E-sign Co-sign Detail Recorded Client Recorded Date Recorded By Document 06/14/23 09:35 DL Desktop 06/14/23 09:37 DL 06/14/23 09:35 Wound Care Center Nurse 3 #1 right plantar foot -Ulcer Cleansing Soap and Water -Foul Odor after Cleansing No -Primary Dressing Covered/Secured with Dry Gauze & Roll Gauze, Secured with Tape -Other Covering sutured Treatment Response Procedure Tolerated Well Pain Scale: 0-10 Numeric Is Patient Pain Free? Yes WC - Visit Discharge Discharge Condition Stable Ambulatory Status Walker Transportation Private Auto Assessment/Plan Assessment/Plan (1) Morbid obesity with BMI of 40.0-44.9, adult: CODE(S): E66.01 - Morbid (severe) obesity due to excess calories; Z68.41 -Body mass index [BMI] 40.0-44.9, adult (2) Hypertension: CODE(S): I10 - Essential (primary) hypertension (3) Gastrocnemius equinus of right lower extremity: CODE(S): M21.861 - Other specified acquired deformities of right lower leg (4) Non-pressure chronic ulcer of other part of right foot with fat layer exposed: CODE(S): L97.512 - Non-pressure chronic ulcer of other part of right foot with fat layer exposed (5) Acquired hallux limitus of right foot: CODE(S): M20.5X1 - Other deformities of toe(s) (acquired), right foot (6) Hallux malleus of right foot: CODE(S): M20.31 - Hallux varus (acquired), right foot (7) Type 2 diabetes mellitus with foot ulcer: CODE(S): E11.621 - Type 2 diabetes mellitus with foot ulcer; L97.509 - Non- pressure chronic ulcer of other part of unspecified foot with unspecified severity (8) Diabetes mellitus with diabetic polyneuropathy: CODE(S): E11.42 - Type 2 diabetes mellitus with diabetic polyneuropathy PLAN: Plan Patient seen and evaluated. Patient was non-weight bearing in CAM boot with plantar offloading padding and knee scooter today I have reviewed the LEAS performed 01/17/2023 demonstrating: Left foot triphasic DP and PT on Doppler; Indices left foot PT- 1.05. DP 1.03, Digit 0.91; right foot triphasic DP and PT on Doppler; Indices foot PT 1.10, DP 1.16, digit noncompressible. PVR diminished at ankle and digit on left with noncompressible digit right foot. Impression no evidence of significant occlusive arterial disease. Reviewed diagnostic data from 01/17/2023 demonstrating WBC of 8.7 Radiographic imaging obtained 01/17/2023 demonstrating no evidence of osteomyelitis. I have reviewed this imaging and concur with the radiographic read. Updated radiograph of the right foot ordered 03/29/2023, radiograph demonstrates no signs of osteomyelitis. I have reviewed her culture results which were obtained 01/17/2023 demonstrating: Providencia rettgeri, Staph aureus, Stap agalactaie, and Kocuria kristinae. She was prescribed Augmentin [address] Omar MD. 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 She did apple picking supervisor antibiotic and has completed this antibiotic course. Ulceration underwent debridement on 06/14/2023. At that time ulcerative site demonstrates healthy granular base with surrounding hyperkeratosis. No signs of infection. Ulceration measures 0.5 cm x 0.2 cm x 0.1 cm. Skin was prepped with 70% isopropyl rubbing alcohol and a local anesthetic was given about the wound site consisting of 3 cc 1% lidocaine plain and following debridement of the superficial ulceration the skin was reapproximated with delayed primary closure utilizing a 2-0 Prolene in simple interrupted fashion. She was instructed to keep the site clean, dry, intact. Sutures remain intact today with skin well coapted. No signs of infection. Sutures have been in place for 7 days. Discussed removing sutures in 14 days for optimized healing of her delayed primary closure. Dressings changed today consisting of Betadine soaked Adaptic, and dry sterile dressing. She is to continue to keep dressings clean, dry, and intact to the right foot and remain offloaded in cam boot. Following debridement cultures were obtained 03/01/23 due to her continued significant drainage. She was empirically started on oral doxycycline 100 mg p.o. twice daily x14 days and oral ciprofloxacin 500 mg p.o. twice daily x14 days. She states that she picked up oral abx and started on 03/08/23. Culture results demonstrate PsA, Providencia rettgeri, corynebacterium jeikeium, Staphylococcus cohnii urealyti, and anaerobic cocci. 03/22/2023 she completed antibiotic course and due to patient leaving [facility] antibiotic course was extended. She will finished oral abx 04/05/23. She was instructed to stay off feet as much as possible to continue to aid in pressure reduction to the ulcerative site. Rx for knee scooter was written 03/29/23. She states she did get the knee scooter is using this to remain non-weight bearing to the right foot. Reminded her she is to remain nonweightbearing in the CAM boot for offloading with knee scooter assistance. Stressed importance of continuing knee scooter today. She was instructed to continue offloading in CAM boot for the right lower extremity with plantar offloading padding for first metatarsal head. She was instructed to remain in the CAM boot at all times and not to wear flip-flops. She may remove the boot for shower purposes and sleeping. She voices understanding of this. Discussed that pressure reduction to the site is essential for her healing status. Discussed proper diabetic diet to maintain tight glycemic control. Last A1c 09/2022 was 7.0%. Discussed continued diet and exercise along with lifestyle modification/weight loss to aid in healthy lifestyle. Discussed importance of daily foot checks. Discussed adequate protein intake to aid in wound healing. She may take Jeremy supplementation to aid in wound healing. Discussed being diabetic she is never to go barefoot and should wear closed toed shoes at all times. Discussed with her socks is considered barefoot. Encouraged shoe gear to be worn at all times. She voices understanding of this. Recommend diabetic shoes with plantar offloading padding once ulceration has healed. Discussed signs and symptoms of infection. Discussed if she notices redness about the ulcerative site that moves to the top of the foot and up the foot, purulent drainage from the wound site, increasing foul odor, or if she experiences fever greater than 101 degree, nausea, vomiting, chills that these are signs of a progressing infection and she should report to the ED for IV antibiotics. She voices understanding of this today. The following work up and care recommendations were made: Dressing: Betadine and dry sterile dressing. Leave intact. Wash: Do not get wet Tissue growth optimization: None Offload: CAM boot with plantar offloading padding. Remain nonweightbearing to right lower extremity with assistance of knee scooter. Vascular: Palpable pedal pulses bilateral. LEAS obtained and reviewed from 01/17/2023 demonstrating no significant arterial occlusive disease. She is noted to have mild arterial disease of the popliteal/SFA bilateral. On Doppler DP and PT are triphasic bilateral. Edema: No edema noted Infection: No signs of infection Pain: May take [id number] Tylenol for discomfort Host factors: DM type II with peripheral polyneuropathy, hallux limitus right foot, hallux malleus right foot, morbid obesity, equinus deformity all complicated healing potential I answered all the patient's questions. To return to the wound healing center in 2 weeks or call sooner if the patient has any questions or concerns. 06/21/23 0835 <Electronically signed by Jared Gibbons DPM> Cosigner Signature (if applicable): CC: ~ Signed [facility] Work Phone: 1(462) 865-880212-07-2023 Progress note Author Jared Gibbons [facility] June 14, 2023 10:19am Note Date/Time June 14, 2023 1 0:18am [facility] [address] [place] [address] Progress Note - Wound Care 06/14/23 1009 MR#: [id number] Acct: [id number] Name: LUCRECIA HOU Rep #:[id number] : 1965 58 From: Jared worley DPM PCP: REX Castillo Status:REG RCR Location: History of Present Illness Date of Service: 06/14/23 Chief Complaint: Diabetic foot ulceration, right metatarsal-phalangeal joint, plantar surface History of Wound: This is a 58-year-old, morbidly-obese, diabetic female who presents with a largeulceration on the right great toe. The ulceration is located at the right firstmetatarsophalangeal joint, on the plantar surface. It has been present for approximately 4 months. According to the patient, it originated as a callus, and she ripped off the skin. She has been using Watkin's salve topically. 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 Her BMI is 41.8. Shedenies a history of smoking. She also denies a history of myocardial infarction, congestive heart failure, cerebrovascular accident, pulmonary disease,renal disease, and thyroid disease. Most recent hemoglobin A1c was 7.0 in September,. Laboratory studies obtained recently, dated January 03, 2023, are as follows: White blood count 8.7, hemoglobin 13.5, hematocrit 41.4, platelets 308,000, sodium 138, potassium 4.0, chloride 101, BUN 14, creatinine 0.65, glucose 140, calcium 9.3, bilirubin 0.40, AST 19, ALT 24, alkaline phosphatase 107, protein 7.8, albumin 3.3. Subjective Subjective This is a 58-year-old diabetic female who presents to the wound care center today for follow-up of a plantar first metatarsal head ulceration of the right foot. She is changing dressings daily with Katrina. She has continued to offload in the CAM boot with plantar offloading padding and remaining nonweightbearing to the right lower extremity with assistance of knee scooter. She denies any constitutional symptoms. She denies further complaints. Objective Data Objective Data Vital Signs: Vital Signs Temp Pulse Resp BP O2 Del Method 95.6 F L 82 18 189/79 H Room Air 06/14/23 08:44 06/14/23 08:44 06/14/23 08:44 06/14/23 08:44 06/14/23 08:44 Oxygen Delivery Method Room Air Weight: 110.677 kg Body Mass Index (BMI) 41.8 Physical Exam Const alert, oriented x3, no apparent distress and well nourished General Appearance: cooperative HEENT normocephalic Eyes General Eye: normal appearance of both eyes Neck General: normal visual inspection Lymph Lymphatic: no lymphadenopathy noted and no lymphedema noted Resp normal respiratory effort Cardio regular rate and regular rhythm Extremity normal capillary refill, no joint enlargement, no calf tenderness and no pedal edema Extremity Narrative: DP and PT pulses palpable bilateral. Capillary fill time to the digits less than 5 seconds bilateral. Hair growth diminished to the digits bilateral. Dermatological: Skin appears well-hydrated with normal turgor. Hyperkeratotic tissue Sub first metatarsal head of the left foot with no evidence of open wound. There is an ulceration noted to the plantar aspect of the first metatarsal head of the right foot with surrounding hyperkeratotic tissue. Woundbed demonstrates granular tissue. No purulent drainage, no malodor, no palpablefluctuance/bogginess, no visible abscess formation, no lymphangitic streaking. Ulceration does not probe to bone. Musculoskeletal: Muscle strength 5 of 5 age-appropriate. She does demonstrate decreased range of motion of the first metatarsophalangeal joint bilateral without pain or crepitus. Decreased range of motion of the ankle joint in dorsiflexion with the knee extended without pain or crepitus bilateral. Hammertoe deformity of the right hallux. No pain to palpation about the ulcerative site plantar first metatarsal head right foot Skin no rashes or lesions noted, skin turgor normal and no jaundice Neuro moves all extremities Neuro Narrative: Decreased protective sensation secondary to diabetic peripheral polyneuropathy Debridement Note Debridement Note Wound debrided: Subfirst metatarsal head Laterality: Right Wound Grade/Stage: Nichols stage I Type of Debridement: Excisional debridement Anesthesia Used: 5% Lidocaine Gel Depth: Down to and including healthy tissue and in the subcutaneous layer Percentage of wound debrided: 100 Instrument Used: #15 blade Tissue Removed: Fibrous, devitalized subcutaneous, biofilm, slough Severity: Fat Layer Exposed Amount of bleeding with debridement: Mild Bleeding Controlled with: Compression and gauze Patient tolerated procedure: Patient tolerated procedure well Post-Debridement Measurements and Additional Note: Post-Debridement Measurements/Treatment RADHA - Nurse 1 - General Ulcer Assessment Start: 06/14/23 08:44 Freq: Status: Active Protocol: JAXSON Activity Type Activity Date Activity User E-sign Co-sign Detail Recorded Client Recorded Date Recorded By Document 06/14/23 08:44 GM Desktop 06/14/23 08:50 GM 06/14/23 08:44 WC - Today's Visit Information Type of service Follow-up Visit (Physician/AUTOMOTIVE PROFESSIONAL ) Arrival Mode Ambulatory Transfer Assistance None Patient Identification Verified (Name & Yes ) Patient Requires Transmission-Based No Precautions Height and Weight Body Mass Index (BMI) 41.8 BMI Classification Obese Vital Signs Temperature (97.8 F-99.1 F) 95.6 F L Temperature Source Temporal Pulse Rate (60-100) 82 Pulse Location Monitor Respiratory Rate (12-18) 18 Respiratory rate source Observation Oxygen Delivery Method Room Air Blood Pressure (90/60-120/80) 189/79 H Blood Pressure Mean (mm Hg) 115 Source Monitor Position Sitting Blood Pressure Location Left Arm History Since Last Visit- (Skip if this is Patient's initial visit) Have you changed medications since your No last visit? Any new allergies or adverse reactions No Had a fall/change in ADL's that may No increase risk of falls Signs or symptoms of abuse and/or No neglect since last visit Have you been in the hospital since your No last visit? Has dressing in place as prescribed Yes Has compression in place as prescribed N/A Has offloadiing in place as prescribed Yes Experienced any changes in pain level or No management Left Footwear Regular Shoe Right Footwear Removable Cast Walker/Walking Boot Pain Scale: 0-10 Numeric Is Patient Pain Free? Yes Keagan Nurse 1 - General Ulcer Measurement Start: 06/14/23 08:44 Freq: Status: Active Protocol: Activity Type Activity Date Activity User E-sign Co-sign Detail Recorded Client Recorded Date Recorded By Document 06/14/23 08:44 GM Desktop 06/14/23 08:50 GM 12/07/23 08:44 Wound Center Nurse 1 # 2 Right lateral plantar -Current Size (cm) - Length 0.8 -Current Size (cm) - Width 0.1 -Current Size (cm) - Depth 0.3 -Total Square Cm 0.08 -Photo Taken No -Epithelialization Small 1-33% -Tunneling No -Undermining/Tunneling Yes -Undermining/Tunneling Starts (O'clock 9 ) -Undermining/Tunneling Ends (O'clock) 12 -Maximum Distance (cm) 0.5 -Circular Undermining No -Exudate Amt Small -Exudate Type Yellow/Green -Wound Margin Distinct, Outline Attached -Granulation Amt Medium (34-66%) -Granulation Quality Red -Necrosis Amt Small (1-33%) -Structure Exposed N/A -Texture (Eklsie-wound Skin Appearance) Assessed -Moisture (Kelsie-wound Skin Appearance) Assessed -Color (Kelsie-wound Skin Appearance) Assessed -Temperature (Kelsie-wound Skin No Abnormality Appearance) (Pt Warm) -Tenderness on Palpation (Kelsie-wound No Skin Appearance) -Ulcer Cleansing Soap and Water -Foul Odor after Cleansing No -Anesthetic Used 5% Lidocaine Gel WC - Nurse 3 - General Ulcer D/C NN Start: 06/14/23 08:44 Freq: Status: Active Protocol: Activity Type Activity Date Activity User E-sign Co-sign Detail Recorded Client Recorded Date Recorded By Document 06/14/23 09:35 DL Desktop 06/14/23 09:37 DL 06/14/23 09:35 Wound Care Center Nurse 3 #1 right plantar foot -Ulcer Cleansing Soap and Water -Foul Odor after Cleansing No -Primary Dressing Covered/Secured with Dry Gauze & Roll Gauze, Secured with Tape -Other Covering sutured Treatment Response Procedure Tolerated Well Pain Scale: 0-10 Numeric Is Patient Pain Free? Yes WC - Visit Discharge Discharge Condition Stable Ambulatory Status Walker Transportation Private Auto Assessment/Plan Assessment/Plan (1) Morbid obesity with BMI of 40.0-44.9, adult: CODE(S): E66.01 - Morbid (severe) obesity due to excess calories; Z68.41 -Body mass index [BMI] 40.0-44.9, adult (2) Hypertension: CODE(S): I10 - Essential (primary) hypertension (3) Gastrocnemius equinus of right lower extremity: CODE(S): M21.861 - Other specified acquired deformities of right lower leg (4) Non-pressure chronic ulcer of other part of right foot with fat layer exposed: CODE(S): L97.512 - Non-pressure chronic ulcer of other part of right foot with fat layer exposed (5) Acquired hallux limitus of right foot: CODE(S): M20.5X1 - Other deformities of toe(s) (acquired), right foot (6) Hallux malleus of right foot: CODE(S): M20.31 - Hallux varus (acquired), right foot (7) Type 2 diabetes mellitus with foot ulcer: CODE(S): E11.621 - Type 2 diabetes mellitus with foot ulcer; L97.509 - Non- pressure chronic ulcer of other part of unspecified foot with unspecified severity (8) Diabetes mellitus with diabetic polyneuropathy: CODE(S): E11.42 - Type 2 diabetes mellitus with diabetic polyneuropathy PLAN: Plan Patient seen and evaluated. Patient was non-weight bearing in CAM boot with plantar offloading padding and knee scooter today I have reviewed the LEAS performed 01/17/2023 demonstrating: Left foot triphasic DP and PT on Doppler; Indices left foot PT- 1.05. DP 1.03, Digit 0.91; right foot triphasic DP and PT on Doppler; Indices foot PT 1.10, DP 1.16, digit noncompressible. PVR diminished at ankle and digit on left with noncompressible digit right foot. Impression no evidence of significant occlusive arterial disease. Reviewed diagnostic data from 01/17/2023 demonstrating WBC of 8.7 Radiographic imaging obtained 01/17/2023 demonstrating no evidence of osteomyelitis. I have reviewed this imaging and concur with the radiographic read. Updated radiograph of the right foot ordered 03/29/2023, radiograph demonstrates no signs of osteomyelitis. I have reviewed her culture results which were obtained 01/17/2023 demonstrating: Providencia rettgeri, Staph aureus, Stap agalactaie, and Kocuria kristinae. She was prescribed Augmentin [address] Omar MD. 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 She did apple picking supervisor antibiotic and has completed this antibiotic course. Ulceration underwent debridement as noted in the clinical panel above. Ulcerative site demonstrates healthy granular base with surrounding hyperkeratosis. No signs of infection. Ulceration measures 0.5 cm x 0.2 cm x 0.1 cm. Skin was prepped with 70% isopropyl rubbing alcohol and a local anesthetic was given about the wound site consisting of 3 cc 1% lidocaine plain and following debridement of the superficial ulceration the skin was reapproximated with delayed primary closure utilizing a 2-0 Prolene in simple interrupted fashion. She was instructed to keep the site clean, dry, intact. Ulceration does demonstrate slight increase in size versus previous visit secondary to skin tear. Following debridement cultures were obtained 03/01/23 due to her continued significant drainage. She was empirically started on oral doxycycline 100 mg p.o. twice daily x14 days and oral ciprofloxacin 500 mg p.o. twice daily x14 days. She states that she picked up oral abx and started on 03/08/23. Culture results demonstrate PsA, Providencia rettgeri, corynebacterium jeikeium, Staphylococcus cohnii urealyti, and anaerobic cocci. 03/22/2023 she completed antibiotic course and due to patient leaving town antibiotic course was extended. She will finished oral abx 04/05/23. She was instructed to stay off feet as much as possible to continue to aid in pressure reduction to the ulcerative site. Rx for knee scooter was written 03/29/23. She states she did get the knee scooter is using this to remain non-weight bearing to the right foot. Reminded her she is to remain nonweightbearing in the CAM boot for offloading with knee scooter assistance. Stressed importance of continuing knee scooter today. She was instructed to continue offloading in CAM boot for the right lower extremity with plantar offloading padding for first metatarsal head. She was instructed to remain in the CAM boot at all times and not to wear flip-flops. She may remove the boot for shower purposes and sleeping. She voices understanding of this. Discussed that pressure reduction to the site is essential for her healing status. Discussed proper diabetic diet to maintain tight glycemic control. Last A1c 09/2022 was 7.0%. Discussed continued diet and exercise along with lifestyle modification/weight loss to aid in healthy lifestyle. Discussed importance of daily foot checks. Discussed adequate protein intake to aid in wound healing. She may take Jeremy supplementation to aid in wound healing. Discussed being diabetic she is never to go barefoot and should wear closed toed shoes at all times. Discussed with her socks is considered barefoot. Encouraged shoe gear to be worn at all times. She voices understanding of this. Recommend diabetic shoes with plantar offloading padding once ulceration has healed. Discussed signs and symptoms of infection. Discussed if she notices redness about the ulcerative site that moves to the top of the foot and up the foot, purulent drainage from the wound site, increasing foul odor, or if she experiences fever greater than 101 degree, nausea, vomiting, chills that these are signs of a progressing infection and she should report to the ED for IV antibiotics. She voices understanding of this today. The following work up and care recommendations were made: Dressing: Betadine and dry sterile dressing. Leave intact. Wash: Do not get wet Tissue growth optimization: None Offload: CAM boot with plantar offloading padding. Remain nonweightbearing to right lower extremity with assistance of knee scooter. Vascular: Palpable pedal pulses bilateral. LEAS obtained and reviewed from 01/17/2023 demonstrating no significant arterial occlusive disease. She is noted to have mild arterial disease of the popliteal/SFA bilateral. On Doppler DP and PT are triphasic bilateral. Edema: No edema noted Infection: No signs of infection Pain: May take [id number] Tylenol for discomfort Host factors: DM type II with peripheral polyneuropathy, hallux limitus right foot, hallux malleus right foot, morbid obesity, equinus deformity all complicated healing potential I answered all the patient's questions. To return to the wound healing center in 1 week or call sooner if the patient has any questions or concerns. 06/14/23 1019 <Electronically signed by Jared Gibbons DPM> Cosigner Signature (if applicable): CC: ~ Signed [facility] Work Phone: 1(347) 510-378911-30-2023 Progress note Author Jared Gibbons [facility] June 07, 2023 1:29pm Note Date/Time June 07, 2023 1:28pm [facility] [address] [place] [address] Progress Note - Wound Care 06/07/23 1323 MR#: [id number] Acct: [id number] Name: LUCRECIA HOU Rep #:[id number] : 1965 58 From: Jared worley DPM PCP: REX Castillo Status:REG RCR Location: History of Present Illness Date of Service: 06/07/23 Chief Complaint: Diabetic foot ulceration, right metatarsal-phalangeal joint, plantar surface History of Wound: This is a 58-year-old, morbidly-obese, diabetic female who presents with a largeulceration on the right great toe. The ulceration is located at the right firstmetatarsophalangeal joint, on the plantar surface. It has been present for approximately 4 months. According to the patient, it originated as a callus, and she ripped off the skin. She has been using Watkin's salve topically. 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 Her BMI is 41.8. Shedenies a history of smoking. She also denies a history of myocardial infarction, congestive heart failure, cerebrovascular accident, pulmonary disease,renal disease, and thyroid disease. Most recent hemoglobin A1c was 7.0 in September,. Laboratory studies obtained recently, dated January 03, 2023, are as follows: White blood count 8.7, hemoglobin 13.5, hematocrit 41.4, platelets 308,000, sodium 138, potassium 4.0, chloride 101, BUN 14, creatinine 0.65, glucose 140, calcium 9.3, bilirubin 0.40, AST 19, ALT 24, alkaline phosphatase 107, protein 7.8, albumin 3.3. Subjective Subjective This is a 58-year-old diabetic female who presents to the wound care center today for follow-up of a plantar first metatarsal head ulceration of the right foot. She is changing dressings daily with Katrina. She has continued to offload in the CAM boot with plantar offloading padding and remaining nonweightbearing to the right lower extremity with assistance of knee scooter. She denies any constitutional symptoms. She denies further complaints. Objective Data Objective Data Vital Signs: Vital Signs Temp Pulse Resp BP O2 Del Method 96.9 F L 78 18 185/85 H Room Air 06/07/23 10:08 05/24/23 08:52 06/07/23 10:08 05/24/23 08:52 06/07/23 10:08 Oxygen Delivery Method Room Air Weight: 110.677 kg Body Mass Index (BMI) 41.8 Physical Exam Const alert, oriented x3, no apparent distress and well nourished General Appearance: cooperative HEENT normocephalic Eyes General Eye: normal appearance of both eyes Neck General: normal visual inspection Lymph Lymphatic: no lymphadenopathy noted and no lymphedema noted Resp normal respiratory effort Cardio regular rate and regular rhythm Extremity normal capillary refill, no joint enlargement, no calf tenderness and no pedal edema Extremity Narrative: DP and PT pulses palpable bilateral. Capillary fill time to the digits less than 5 seconds bilateral. Hair growth diminished to the digits bilateral. Dermatological: Skin appears well-hydrated with normal turgor. Hyperkeratotic tissue Sub first metatarsal head of the left foot with no evidence of open wound. There is an ulceration noted to the plantar aspect of the first metatarsal head of the right foot with surrounding hyperkeratotic tissue. Woundbed demonstrates granular tissue. No purulent drainage, no malodor, no palpablefluctuance/bogginess, no visible abscess formation, no lymphangitic streaking. Ulceration does not probe to bone. Superficial skin tear Sub fifth digit secondary to tape has healed. Musculoskeletal: Muscle strength 5 of 5 age-appropriate. She does demonstrate decreased range of motion of the first metatarsophalangeal joint bilateral without pain or crepitus. Decreased range of motion of the ankle joint in dorsiflexion with the knee extended without pain or crepitus bilateral. Hammertoe deformity of the right hallux. No pain to palpation about the ulcerative site plantar first metatarsal head right foot Skin no rashes or lesions noted, skin turgor normal and no jaundice Neuro moves all extremities Neuro Narrative: Decreased protective sensation secondary to diabetic peripheral polyneuropathy Debridement Note Debridement Note Wound debrided: Sub first metatarsal head Laterality: Right Wound Grade/Stage: Nichols stage I Type of Debridement: Excisional debridement Anesthesia Used: 5% Lidocaine Gel Depth: Down to and including healthy tissue and in the subcutaneous layer Percentage of wound debrided: 100 Instrument Used: #15 blade Tissue Removed: Fibrous, devitalized subcutaneous, biofilm, slough Severity: Fat Layer Exposed Amount of bleeding with debridement: Mild Bleeding Controlled with: Compression and gauze Patient tolerated procedure: Patient tolerated procedure well Post-Debridement Measurements and Additional Note: Post-Debridement Measurements/Treatment WC - Nurse 1 - General Ulcer Assessment Start: 05/17/23 08:37 Freq: Status: Active Protocol: JAXSON Activity Type Activity Date Activity User E-sign Co-sign Detail Recorded Client Recorded Date Recorded By Document 05/17/23 08:40 KW Desktop 05/17/23 08:47 KW Document 05/24/23 08:52 NRL Desktop 05/24/23 08:58 NRL Document 06/07/23 10:08 KW Desktop 06/07/23 10:15 KW 05/17/23 05/24/23 06/07/23 08:40 08:52 10:08 WC - Today's Visit Information Type of service Follow-up Visit Follow-up Visit Follow-up Visit (Physician/AUTOMOTIVE PROFESSIONAL (Physician/AUTOMOTIVE PROFESSIONAL (Physician/AUTOMOTIVE PROFESSIONAL ) ) ) Arrival Mode Ambulatory Ambulatory Ambulatory Patient Identification Verified (Name & Yes Yes Yes ) Height and Weight Body Mass Index (BMI) 41.8 41.8 41.8 BMI Classification Obese Obese Obese Vital Signs Temperature (97.8 F-99.1 F) 96.5 F L 96.9 F L Temperature Source Temporal Temporal Pulse Rate (60-100) 78 Pulse Location Monitor Monitor Respiratory Rate (12-18) 18 18 18 Respiratory rate source Observation Observation Observation Oxygen Delivery Method Room Air Room Air Blood Pressure (90/60-120/80) 185/85 H Blood Pressure Mean (mm Hg) 118 Source Monitor Position Sitting Blood Pressure Location Left Arm History Since Last Visit- (Skip if this is Patient's initial visit) Have you changed medications since your No No No last visit? Any new allergies or adverse reactions No No No Had a fall/change in ADL's that may No No No increase risk of falls Signs or symptoms of abuse and/or No No neglect since last visit Have you been in the hospital since your No No No last visit? Has dressing in place as prescribed Yes Yes Yes Has compression in place as prescribed No N/A No Has offloadiing in place as prescribed Yes Yes Yes Experienced any changes in pain level or No No No management Left Footwear Regular Shoe Regular Shoe Regular Shoe Right Footwear Removable Cast Removable Cast Removable Cast Walker/Walking Walker/Walking Walker/Walking Boot Boot Boot Pain Scale: 0-10 Numeric Is Patient Pain Free? Yes Yes Yes WC - Nurse 1 - General Ulcer Measurement Start: 05/17/23 08:37 Freq: Status: Active Protocol: Activity Type Activity Date Activity User E-sign Co-sign Detail Recorded Client Recorded Date Recorded By Document 05/17/23 08:40 KW Desktop 05/17/23 08:47 KW Document 05/24/23 08:52 NRL Desktop 05/24/23 08:58 NRL Edit Result 05/24/23 08:52 NRL (1) Desktop 05/24/23 09:40 NRL Document 06/07/23 10:08 KW Desktop 06/07/23 10:15 KW (1) # 2 Right lateral plantar - Combined with other wound => No - Current Size (cm) - Length => 0.5 - Current Size (cm) - Width => 1.9 - Current Size (cm) - Depth => 0.1 - Total Square Cm => 0.95 - Epithelialization => Small 1-33% - Undermining/Tunneling => No - Circular Undermining => No - Exudate Amt => None Present - Wound Margin => Distinct, Outline => Attached - Granulation Amt => Small (1-33%) - Necrosis Amt => None Present (0%) - Texture (Kelsie-wound Skin Appearance) => Assessed - Moisture (Kelsie-wound Skin Appearance) => Assessed - Color (Kelsie-wound Skin Appearance) => Assessed - Temperature (Kelsie-wound Skin => No Abnormality (Pt Appearance) => Warm) - Tenderness on Palpation (Kelsie-wound => No Skin Appearance) - Ulcer Cleansing => Wound Cleanser - Foul Odor after Cleansing => No - Anesthetic Used => 5% Lidocaine Gel 05/17/23 05/24/23 06/07/23 08:40 08:52 10:08 Wound Center Nurse 1 # 2 Right lateral plantar -Combined with other wound No -Current Size (cm) - Length 0.5 0.1 -Current Size (cm) - Width 1.9 0.1 -Current Size (cm) - Depth 0.1 0.1 -Total Square Cm 0.95 0.01 -Epithelialization Small 1-33% -Undermining/Tunneling No No -Circular Undermining No -Exudate Amt None Present -Wound Margin Distinct, Outline Attached -Granulation Amt Small (1-33%) Small (1-33%) -Granulation Quality Red -Necrosis Amt None Present (0 %) -Texture (Kelsie-wound Skin Appearance) Assessed -Moisture (Kelsie-wound Skin Appearance) Assessed -Color (Kelsie-wound Skin Appearance) Assessed -Temperature (Kelsie-wound Skin No Abnormality No Abnormality Appearance) (Pt Warm) (Pt Warm) -Tenderness on Palpation (Kelsie-wound No Skin Appearance) -Ulcer Cleansing Wound Cleanser Soap and Water -Foul Odor after Cleansing No No -Anesthetic Used 5% Lidocaine 5% Lidocaine Gel Gel #1 right plantar foot -Combined with other wound No -Current Size (cm) - Length 0.5 0.7 -Current Size (cm) - Width 0.3 0.2 -Current Size (cm) - Depth 0.2 0.3 -Total Square Cm 0.15 0.14 -Epithelialization Small 1-33% -Tunneling No -Undermining/Tunneling No Yes -Undermining/Tunneling Starts (O'clock 9 ) -Undermining/Tunneling Ends (O'clock) 12 -Maximum Distance (cm) 0.5 -Exudate Amt Small Medium Small -Exudate Type Serosanguineous Serosanguineous Serosanguineous -Wound Margin Thickened Distinct, Distinct, Outline Outline Attached Attached -Granulation Amt Small (1-33%) Small (1-33%) Small (1-33%) -Granulation Quality Red [place] -Slough/Fibrin Yes -Necrosis Amt Small (1-33%) Small (1-33%) Small (1-33%) -Necrotic Tissue Type Adherent Slough Adherent Slough Adherent Slough -Texture (Kelsie-wound Skin Appearance) Assessed,Callus Assessed Assessed,Callus -Moisture (Kelsie-wound Skin Appearance) Assessed,Dry/ Assessed Assessed Scaly -Color (Kelsie-wound Skin Appearance) Assessed Assessed Assessed -Temperature (Kelsie-wound Skin No Abnormality No Abnormality No Abnormality Appearance) (Pt Warm) (Pt Warm) (Pt Warm) -Tenderness on Palpation (Kelsie-wound No Skin Appearance) -Ulcer Cleansing Soap and Water Wound Cleanser Soap and Water -Foul Odor after Cleansing No No -Anesthetic Used 5% Lidocaine 5% Lidocaine 5% Lidocaine Gel Gel Gel Lower Limb Edema Present NA WC - Nurse 2 - General Ulcer CM Notes Start: 05/17/23 08:37 Freq: Status: Active Protocol: Activity Type Activity Date Activity User E-sign Co-sign Detail Recorded Client Recorded Date Recorded By Document 05/17/23 16:44 PL [id number] 05/17/23 16:45 PL Document 05/24/23 16:14 PL [id number] 05/24/23 16:16 PL 05/17/23 05/24/23 16:44 16:14 Wound Center Nurse 2 # 2 Right lateral plantar -Time 09:23 -Correct Patient Yes -Correct Side, Site, Position Yes -Correct Procedure Yes -Procedure Performed Yes -Type of Procedure Debridement -Clinical Debridement Subcutaneous -Tissue Removed Subcutaneous -Post Debridement (cm) - Length 0.5 -Post Debridement (cm) - Width 1.9 -Post Debridement (cm) - Depth 0.1 -Total Square (Post) (cm) 0.95 -Area of Debridement (cm) - Length 0.5 -Area of Debridement (cm) - Width 1.9 -Total Square (Area) (cm) 0.95 -Tunneling No -Undermining/Tunneling No -Circular Undermining No -Wound/Ulcer Outcome Not Healed -Ulcer Cleansing Rinsed/ Irrigated with Saline -Foul Odor after Cleansing No -Bioengineered Tissue No -Bleeding Controlled with NA -Treatment Response Procedure Tolerated Well -Debridement - Subq, 1st 20sq cm No #1 right plantar foot -Time 09:12 09:23 -Correct Patient Yes Yes -Correct Side, Site, Position Yes Yes -Correct Procedure Yes Yes -Procedure Performed Yes Yes -Type of Procedure Debridement Debridement -Clinical Debridement Subcutaneous Subcutaneous -Tissue Removed Subcutaneous Subcutaneous -Post Debridement (cm) - Length 0.9 0.6 -Post Debridement (cm) - Width 0.4 0.3 -Post Debridement (cm) - Depth 0.1 0.1 -Total Square (Post) (cm) 0.36 0.18 -Area of Debridement (cm) - Length 0.9 0.6 -Area of Debridement (cm) - Width 0.4 0.3 -Total Square (Area) (cm) 0.36 0.18 -Tunneling No No -Undermining/Tunneling No No -Circular Undermining No No -Wound/Ulcer Outcome Not Healed Not Healed -Ulcer Cleansing Rinsed/ Rinsed/ Irrigated with Irrigated with Saline Saline -Foul Odor after Cleansing No No -Bioengineered Tissue No No -Bleeding Controlled with Pressure Pressure -Treatment Response Procedure Procedure Tolerated Well Tolerated Well -Debridement - Subq, 1st 20sq cm Yes Yes Pain Scale: 0-10 Numeric Is Patient Pain Free? Yes Yes - Nurse 3 - General Ulcer D/C NN Start: 05/17/23 08:37 Freq: Status: Active Protocol: Activity Type Activity Date Activity User E-sign Co-sign Detail Recorded Client Recorded Date Recorded By Document 05/17/23 09:42 DL Desktop 05/17/23 09:43 DL Document 05/24/23 09:41 NRL Desktop 05/24/23 09:43 NRL Document 06/07/23 10:48 KW Desktop 06/07/23 10:49 KW 05/17/23 05/24/23 06/07/23 09:42 09:41 10:48 Wound Care Center Nurse 3 #1 right plantar foot -Ulcer Cleansing Rinsed/ Wound Cleanser Irrigated with Saline -Foul Odor after Cleansing No No -Primary Dressing Applied Promogran Promogran Promogran Katrina Matter Katrina Matter Katrina Matter -Primary Dressing Covered/Secured with Dry Gauze & Dry Gauze & Dry Gauze & Roll Gauze, Roll Gauze Roll Gauze, Secured with Secured with Tape Tape -Promogran Aktrina Matter 1 1 1 Treatment Response Procedure Tolerated Well Pain Scale: 0-10 Numeric Is Patient Pain Free? Yes Yes Yes - Visit Discharge Discharge Condition Stable Stable Stable Ambulatory Status Ambulatory, Ambulatory Ambulatory Walker Transportation Private Auto Private Auto Private Auto Accompanied by Self Medication Reconcilliation completed & Yes No provided to patient/care provider Clinical Summary of Care Provided Yes Yes Notes: Knee Roller Assessment/Plan Assessment/Plan (1) Gastrocnemius equinus of right lower extremity: CODE(S): M21.861 - Other specified acquired deformities of right lower leg (2) Non-pressure chronic ulcer of other part of right foot with fat layer exposed: CODE(S): L97.512 - Non-pressure chronic ulcer of other part of right foot with fat layer exposed (3) Acquired hallux limitus of right foot: CODE(S): M20.5X1 - Other deformities of toe(s) (acquired), right foot (4) Hallux malleus of right foot: CODE(S): M20.31 - Hallux varus (acquired), right foot (5) Type 2 diabetes mellitus with foot ulcer: CODE(S): E11.621 - Type 2 diabetes mellitus with foot ulcer; L97.509 - Non- pressure chronic ulcer of other part of unspecified foot with unspecified severity (6) Diabetes mellitus with diabetic polyneuropathy: CODE(S): E11.42 - Type 2 diabetes mellitus with diabetic polyneuropathy (7) Diabetic foot ulcer associated with diabetes mellitus due to underlying condition: CODE(S): E08.621 - Diabetes mellitus due to underlying condition with footulcer; L97.509 - Non-pressure chronic ulcer of other part of unspecified foot with unspecified severity QUALIFIERS: Diabetic foot ulcer location: toe Laterality: right Non-pressure ulcer stage: with fat layer exposed Qualified Code(s): E08.621 - Diabetes mellitus due to underlying condition with foot ulcer; L97.512 - Non-pressure chronic ulcer of other part of right foot with fat layer exposed (8) Peripheral neuropathy: CODE(S): G62.9 - Polyneuropathy, unspecified (9) Hyperlipidemia: CODE(S): E78.5 - Hyperlipidemia, unspecified (10) Hypertension: CODE(S): I10 - Essential (primary) hypertension (11) Morbid obesity with BMI of 40.0-44.9, adult: CODE(S): E66.01 - Morbid (severe) obesity due to excess calories; Z68.41 -Body mass index [BMI] 40.0-44.9, adult PLAN: Plan Patient seen and evaluated. Patient was non-weight bearing in CAM boot with plantar offloading padding and knee scooter today I have reviewed the LEAS performed 01/17/2023 demonstrating: Left foot triphasic DP and PT on Doppler; Indices left foot PT- 1.05. DP 1.03, Digit 0.91; right foot triphasic DP and PT on Doppler; Indices foot PT 1.10, DP 1.16, digit noncompressible. PVR diminished at ankle and digit on left with noncompressible digit right foot. Impression no evidence of significant occlusive arterial disease. Reviewed diagnostic data from 01/17/2023 demonstrating WBC of 8.7 Radiographic imaging obtained 01/17/2023 demonstrating no evidence of osteomyelitis. I have reviewed this imaging and concur with the radiographic read. Updated radiograph of the right foot ordered 03/29/2023, radiograph demonstrates no signs of osteomyelitis. I have reviewed her culture results which were obtained 01/17/2023 demonstrating: Providencia rettgeri, Staph aureus, Stap agalactaie, and Kocuria kristinae. She was prescribed Augmentin [address] Omar MD. 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 She did apple picking supervisor antibiotic and has completed this antibiotic course. Ulceration underwent debridement as noted in the clinical panel above. Ulcerative site demonstrates healthy granular base with surrounding hyperkeratosis. No signs of infection. Ulceration measures 0.3 cm x 0.2 cm x 0.1 cm. Katrina applied to ulcerative base and dressed with dry sterile dressing. She is to change dressing daily. Ulceration does demonstrate reduction in size versus previous visit. Following debridement cultures were obtained 03/01/23 due to her continued significant drainage. She was empirically started on oral doxycycline 100 mg p.o. twice daily x14 days and oral ciprofloxacin 500 mg p.o. twice daily x14 days. She states that she picked up oral abx and started on 03/08/23. Culture results demonstrate PsA, Providencia rettgeri, corynebacterium jeikeium, Staphylococcus cohnii urealyti, and anaerobic cocci. 03/22/2023 she completed antibiotic course and due to patient leaving town antibiotic course was extended. She will finished oral abx 04/05/23. She was instructed to stay off feet as much as possible to continue to aid in pressure reduction to the ulcerative site. Rx for knee scooter was written 03/29/23. She states she did get the knee scooter is using this to remain non-weight bearing to the right foot. Reminded her she is to remain nonweightbearing in the CAM boot for offloading with knee scooter assistance. Stressed importance of continuing knee scooter today. She was instructed to continue offloading in CAM boot for the right lower extremity with plantar offloading padding for first metatarsal head. She was instructed to remain in the CAM boot at all times and not to wear flip-flops. She may remove the boot for shower purposes and sleeping. She voices understanding of this. Discussed that pressure reduction to the site is essential for her healing status. Discussed proper diabetic diet to maintain tight glycemic control. Last A1c 09/2022 was 7.0%. Discussed continued diet and exercise along with lifestyle modification/weight loss to aid in healthy lifestyle. Discussed importance of daily foot checks. Discussed adequate protein intake to aid in wound healing. She may take Jeremy supplementation to aid in wound healing. Discussed being diabetic she is never to go barefoot and should wear closed toed shoes at all times. Discussed with her socks is considered barefoot. Encouraged shoe gear to be worn at all times. She voices understanding of this. Recommend diabetic shoes with plantar offloading padding once ulceration has healed. Discussed signs and symptoms of infection. Discussed if she notices redness about the ulcerative site that moves to the top of the foot and up the foot, purulent drainage from the wound site, increasing foul odor, or if she experiences fever greater than 101 degree, nausea, vomiting, chills that these are signs of a progressing infection and she should report to the ED for IV antibiotics. She voices understanding of this today. The following work up and care recommendations were made: Dressing: Katrina and dry sterile dressing. Change daily Wash: Soap and water Tissue growth optimization: Katrina Offload: CAM boot with plantar offloading padding. Remain nonweightbearing to right lower extremity with assistance of knee scooter. Vascular: Palpable pedal pulses bilateral. LEAS obtained and reviewed from 01/17/2023 demonstrating no significant arterial occlusive disease. She is noted to have mild arterial disease of the popliteal/SFA bilateral. On Doppler DP and PT are triphasic bilateral. Edema: No edema noted Infection: No signs of infection Pain: May take [id number] Tylenol for discomfort Host factors: DM type II with peripheral polyneuropathy, hallux limitus right foot, hallux malleus right foot, morbid obesity, equinus deformity all complicated healing potential I answered all the patient's questions. To return to the wound healing center in 1 week or call sooner if the patient has any questions or concerns. 06/07/23 [id number] <Electronically signed by Jared Gibbons DPM> Cosigner Signature (if applicable): CC: ~ Signed [facility] Work Phone: [phone] Progress note Author Jared Gibbons [facility] May 24, 2023 9:58am Note Date/Time May 24, 2023 9:58am [facility] [address] [place] [address] Progress Note - Wound Care 05/24/23 0954 MR#: [id number] Acct: [id number] Name: LUCRECIA HOU Rep #:[id number] : 1965 58 From: Jared worley DPM PCP: REX Castillo Status:REG RCR Location: History of Present Illness Date of Service: 05/24/23 Chief Complaint: Diabetic foot ulceration, right metatarsal-phalangeal joint, plantar surface History of Wound: This is a 58-year-old, morbidly-obese, diabetic female who presents with a largeulceration on the right great toe. The ulceration is located at the right firstmetatarsophalangeal joint, on the plantar surface. It has been present for approximately 4 months. According to the patient, it originated as a callus, and she ripped off the skin. She has been using Watkin's salve topically. 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 Her BMI is 41.8. Shedenies a history of smoking. She also denies a history of myocardial infarction, congestive heart failure, cerebrovascular accident, pulmonary disease,renal disease, and thyroid disease. Most recent hemoglobin A1c was 7.0 in September,. Laboratory studies obtained recently, dated January 03, 2023, are as follows: White blood count 8.7, hemoglobin 13.5, hematocrit 41.4, platelets 308,000, sodium 138, potassium 4.0, chloride 101, BUN 14, creatinine 0.65, glucose 140, calcium 9.3, bilirubin 0.40, AST 19, ALT 24, alkaline phosphatase 107, protein 7.8, albumin 3.3. Subjective Subjective This is a 58-year-old diabetic female who presents to the wound care center today for follow-up of a plantar first metatarsal head ulceration of the right foot. She is changing dressings daily with Katrina. She has continued to offload in the CAM boot with plantar offloading padding and remaining nonweightbearing to the right lower extremity with assistance of knee scooter. She states that the tape she was using for dressing changes has caused a small skin tear on the bottom of her foot. She denies any constitutional symptoms. She denies further complaints. Objective Data Objective Data Vital Signs: Vital Signs Temp Pulse Resp BP O2 Del Method 96.5 F L 78 18 185/85 H Room Air 05/24/23 08:52 05/24/23 08:52 05/24/23 08:52 05/24/23 08:52 05/17/23 08:40 Oxygen Delivery Method Room Air Weight: 110.677 kg Body Mass Index (BMI) 41.8 Physical Exam Const alert, oriented x3, no apparent distress and well nourished General Appearance: cooperative HEENT normocephalic Eyes General Eye: normal appearance of both eyes Neck General: normal visual inspection Lymph Lymphatic: no lymphadenopathy noted and no lymphedema noted Resp normal respiratory effort Cardio regular rate and regular rhythm Extremity normal capillary refill, no joint enlargement, no calf tenderness and no pedal edema Extremity Narrative: DP and PT pulses palpable bilateral. Capillary fill time to the digits less than 5 seconds bilateral. Hair growth diminished to the digits bilateral. Dermatological: Skin appears well-hydrated with normal turgor. Hyperkeratotic tissue Sub first metatarsal head of the left foot with no evidence of open wound. There is an ulceration noted to the plantar aspect of the first metatarsal head of the right foot with surrounding hyperkeratotic tissue. Wound bed demonstrates granular tissue. No purulent drainage, no malodor, no palpablefluctuance/bogginess, no visible abscess formation, no lymphangitic streaking. Ulceration does not probe to bone. New superficial skin tear Sub fifth digit secondary to tape. Musculoskeletal: Muscle strength 5 of 5 age-appropriate. She does demonstrate decreased range of motion of the first metatarsophalangeal joint bilateral without pain or crepitus. Decreased range of motion of the ankle joint in dorsiflexion with the knee extended without pain or crepitus bilateral. Hammertoe deformity of the right hallux. No pain to palpation about the ulcerative site plantar first metatarsal head right foot Skin no rashes or lesions noted, skin turgor normal and no jaundice Neuro moves all extremities Neuro Narrative: Decreased protective sensation secondary to diabetic peripheral polyneuropathy Debridement Note Debridement Note Wound debrided: Sub first metatarsal head Laterality: Right Wound Grade/Stage: Nichols stage I Type of Debridement: Excisional debridement Anesthesia Used: 5% Lidocaine Gel Depth: Down to and including healthy tissue and in the subcutaneous layer Percentage of wound debrided: 100 Instrument Used: #15 blade Tissue Removed: Fibrous, devitalized subcutaneous, biofilm, slough Severity: Fat Layer Exposed Amount of bleeding with debridement: Mild Bleeding Controlled with: Compression and gauze Patient tolerated procedure: Patient tolerated procedure well Post-Debridement Measurements and Additional Note: Post-Debridement Measurements/Treatment - Nurse 1 - General Ulcer Assessment Start: 05/17/23 08:37 Freq: Status: Active Protocol: [email or web address] Activity Type Activity Date Activity User E-sign Co-sign Detail Recorded Client Recorded Date Recorded By Document 05/17/23 08:40 KW Desktop 05/17/23 08:47 KW Document 05/24/23 08:52 NRL Desktop 05/24/23 08:58 NRL 05/17/23 05/24/23 08:40 08:52 - Today's Visit Information Type of service Follow-up Visit Follow-up Visit (Physician/AUTOMOTIVE PROFESSIONAL (Physician/AUTOMOTIVE PROFESSIONAL ) ) Arrival Mode Ambulatory Ambulatory Patient Identification Verified (Name & Yes Yes ) Height and Weight Body Mass Index (BMI) 41.8 41.8 BMI Classification Obese Obese Vital Signs Temperature (97.8 F-99.1 F) 96.5 F L Temperature Source Temporal Pulse Rate (60-100) 78 Pulse Location Monitor Monitor Respiratory Rate (12-18) 18 18 Respiratory rate source Observation Observation Oxygen Delivery Method Room Air Blood Pressure (90/60-120/80) 185/85 H Blood Pressure Mean (mm Hg) 118 Source Monitor Position Sitting Blood Pressure Location Left Arm History Since Last Visit- (Skip if this is Patient's initial visit) Have you changed medications since your No No last visit? Any new allergies or adverse reactions No No Had a fall/change in ADL's that may No No increase risk of falls Signs or symptoms of abuse and/or No neglect since last visit Have you been in the hospital since your No No last visit? Has dressing in place as prescribed Yes Yes Has compression in place as prescribed No N/A Has offloadiing in place as prescribed Yes Yes Experienced any changes in pain level or No No management Left Footwear Regular Shoe Regular Shoe Right Footwear Removable Cast Removable Cast Walker/Walking Walker/Walking Boot Boot Pain Scale: 0-10 Numeric Is Patient Pain Free? Yes Yes WC - Nurse 1 - General Ulcer Measurement Start: 05/17/23 08:37 Freq: Status: Active Protocol: Activity Type Activity Date Activity User E-sign Co-sign Detail Recorded Client Recorded Date Recorded By Document 05/17/23 08:40 KW Desktop 05/17/23 08:47 KW Document 05/24/23 08:52 NRL Desktop 05/24/23 08:58 NRL Edit Result 05/24/23 08:52 NRL (1) Desktop 05/24/23 09:40 NRL (1) Right lateral plantar - Combined with other wound => No - Current Size (cm) - Length => 0.5 - Current Size (cm) - Width => 1.9 - Current Size (cm) - Depth => 0.1 - Total Square Cm => 0.95 - Epithelialization => Small 1-33% - Undermining/Tunneling => No - Circular Undermining => No - Exudate Amt => None Present - Wound Margin => Distinct, Outline => Attached - Granulation Amt => Small (1-33%) - Necrosis Amt => None Present (0%) - Texture (Kelsie-wound Skin Appearance) => Assessed - Moisture (Kelsie-wound Skin Appearance) => Assessed - Color (Kelsie-wound Skin Appearance) => Assessed - Temperature (Kelsie-wound Skin => No Abnormality (Pt Appearance) => Warm) - Tenderness on Palpation (Kelsie-wound => No Skin Appearance) - Ulcer Cleansing => Wound Cleanser - Foul Odor after Cleansing => No - Anesthetic Used => 5% Lidocaine Gel 05/17/23 05/24/23 08:40 08:52 Wound Center Nurse 1 Right lateral plantar -Combined with other wound No -Current Size (cm) - Length 0.5 -Current Size (cm) - Width 1.9 -Current Size (cm) - Depth 0.1 -Total Square Cm 0.95 -Epithelialization Small 1-33% -Undermining/Tunneling No -Circular Undermining No -Exudate Amt None Present -Wound Margin Distinct, Outline Attached -Granulation Amt Small (1-33%) -Necrosis Amt None Present (0 %) -Texture (Kelsie-wound Skin Appearance) Assessed -Moisture (Kelsie-wound Skin Appearance) Assessed -Color (Kelsie-wound Skin Appearance) Assessed -Temperature (Kelsie-wound Skin No Abnormality Appearance) (Pt Warm) -Tenderness on Palpation (Kelsie-wound No Skin Appearance) -Ulcer Cleansing Wound Cleanser -Foul Odor after Cleansing No -Anesthetic Used 5% Lidocaine Gel #1 right plantar foot -Combined with other wound No -Current Size (cm) - Length 0.5 -Current Size (cm) - Width 0.3 -Current Size (cm) - Depth 0.2 -Total Square Cm 0.15 -Epithelialization Small 1-33% -Tunneling No -Undermining/Tunneling No -Exudate Amt Small Medium -Exudate Type Serosanguineous Serosanguineous -Wound Margin Thickened Distinct, Outline Attached -Granulation Amt Small (1-33%) Small (1-33%) -Granulation Quality Red [place] -Slough/Fibrin Yes -Necrosis Amt Small (1-33%) Small (1-33%) -Necrotic Tissue Type Adherent Slough Adherent Slough -Texture (Kelsie-wound Skin Appearance) Assessed,Callus Assessed -Moisture (Kelsie-wound Skin Appearance) Assessed,Dry/ Assessed Scaly -Color (Kelsie-wound Skin Appearance) Assessed Assessed -Temperature (Kelsie-wound Skin No Abnormality No Abnormality Appearance) (Pt Warm) (Pt Warm) -Tenderness on Palpation (Kelsie-wound No Skin Appearance) -Ulcer Cleansing Soap and Water Wound Cleanser -Foul Odor after Cleansing No -Anesthetic Used 5% Lidocaine 5% Lidocaine Gel Gel Lower Limb Edema Present NA WC - Nurse 2 - General Ulcer CM Notes Start: 05/17/23 08:37 Freq: Status: Active Protocol: Activity Type Activity Date Activity User E-sign Co-sign Detail Recorded Client Recorded Date Recorded By Document 05/17/23 16:44 PL [id number] 05/17/23 16:45 PL 05/17/23 16:44 Wound Center Nurse 2 #1 right plantar foot -Time 09:12 -Correct Patient Yes -Correct Side, Site, Position Yes -Correct Procedure Yes -Procedure Performed Yes -Type of Procedure Debridement -Clinical Debridement Subcutaneous -Tissue Removed Subcutaneous -Post Debridement (cm) - Length 0.9 -Post Debridement (cm) - Width 0.4 -Post Debridement (cm) - Depth 0.1 -Total Square (Post) (cm) 0.36 -Area of Debridement (cm) - Length 0.9 -Area of Debridement (cm) - Width 0.4 -Total Square (Area) (cm) 0.36 -Tunneling No -Undermining/Tunneling No -Circular Undermining No -Wound/Ulcer Outcome Not Healed -Ulcer Cleansing Rinsed/ Irrigated with Saline -Foul Odor after Cleansing No -Bioengineered Tissue No -Bleeding Controlled with Pressure -Treatment Response Procedure Tolerated Well -Debridement - Subq, 1st 20sq cm Yes Pain Scale: 0-10 Numeric Is Patient Pain Free? Yes - Nurse 3 - General Ulcer D/C NN Start: 05/17/23 08:37 Freq: Status: Active Protocol: Activity Type Activity Date Activity User E-sign Co-sign Detail Recorded Client Recorded Date Recorded By Document 05/17/23 09:42 DL Desktop 05/17/23 09:43 DL Document 05/24/23 09:41 NRL Desktop 05/24/23 09:43 NRL 05/17/23 05/24/23 09:42 09:41 Wound Care Center Nurse 3 #1 right plantar foot -Ulcer Cleansing Rinsed/ Wound Cleanser Irrigated with Saline -Foul Odor after Cleansing No No -Primary Dressing Applied Promogran Promogran Katrina Matter Katrina Matter -Primary Dressing Covered/Secured with Dry Gauze & Dry Gauze & Roll Gauze, Roll Gauze Secured with Tape -Promogran Katrina Matter 1 1 Treatment Response Procedure Tolerated Well Pain Scale: 0-10 Numeric Is Patient Pain Free? Yes Yes - Visit Discharge Discharge Condition Stable Stable Ambulatory Status Ambulatory, Ambulatory Walker Transportation Private Auto Private Auto Accompanied by Self Medication Reconcilliation completed & Yes provided to patient/care provider Clinical Summary of Care Provided Yes Notes: Knee Roller Assessment/Plan Assessment/Plan (1) Gastrocnemius equinus of right lower extremity: CODE(S): M21.861 - Other specified acquired deformities of right lower leg (2) Non-pressure chronic ulcer of other part of right foot with fat layer exposed: CODE(S): L97.512 - Non-pressure chronic ulcer of other part of right foot with fat layer exposed (3) Acquired hallux limitus of right foot: CODE(S): M20.5X1 - Other deformities of toe(s) (acquired), right foot (4) Hallux malleus of right foot: CODE(S): M20.31 - Hallux varus (acquired), right foot (5) Type 2 diabetes mellitus with foot ulcer: CODE(S): E11.621 - Type 2 diabetes mellitus with foot ulcer; L97.509 - Non- pressure chronic ulcer of other part of unspecified foot with unspecified severity (6) Diabetes mellitus with diabetic polyneuropathy: CODE(S): E11.42 - Type 2 diabetes mellitus with diabetic polyneuropathy (7) Diabetic foot ulcer associated with diabetes mellitus due to underlying condition: CODE(S): E08.621 - Diabetes mellitus due to underlying condition with footulcer; L97.509 - Non-pressure chronic ulcer of other part of unspecified foot with unspecified severity QUALIFIERS: Diabetic foot ulcer location: toe Laterality: right Non-pressure ulcer stage: with fat layer exposed Qualified Code(s): E08.621 - Diabetes mellitus due to underlying condition with foot ulcer; L97.512 - Non-pressure chronic ulcer of other part of right foot with fat layer exposed (8) Peripheral neuropathy: CODE(S): G62.9 - Polyneuropathy, unspecified (9) Hyperlipidemia: CODE(S): E78.5 - Hyperlipidemia, unspecified (10) Hypertension: CODE(S): I10 - Essential (primary) hypertension (11) Morbid obesity with BMI of 40.0-44.9, adult: CODE(S): E66.01 - Morbid (severe) obesity due to excess calories; Z68.41 -Body mass index [BMI] 40.0-44.9, adult PLAN: Plan Patient seen and evaluated. Patient was non-weight bearing in CAM boot with plantar offloading padding and knee scooter today I have reviewed the LEAS performed 01/17/2023 demonstrating: Left foot triphasic DP and PT on Doppler; Indices left foot PT- 1.05. DP 1.03, Digit 0.91; right foot triphasic DP and PT on Doppler; Indices foot PT 1.10, DP 1.16, digit noncompressible. PVR diminished at ankle and digit on left with noncompressible digit right foot. Impression no evidence of significant occlusive arterial disease. Reviewed diagnostic data from 01/17/2023 demonstrating WBC of 8.7 Radiographic imaging obtained 01/17/2023 demonstrating no evidence of osteomyelitis. I have reviewed this imaging and concur with the radiographic read. Updated radiograph of the right foot ordered 03/29/2023, radiograph demonstrates no signs of osteomyelitis. I have reviewed her culture results which were obtained 01/17/2023 demonstrating: Providencia rettgeri, Staph aureus, Stap agalactaie, and Kocuria kristinae. She was prescribed Augmentin [address] Omar MD. 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 She did apple picking supervisor antibiotic and has completed this antibiotic course. Ulceration underwent debridement as noted in the clinical panel above. Ulcerative site demonstrates healthy granular base with surrounding hyperkeratosis. No signs of infection. Ulceration measures 0.6 cm x 0.3 cm x 0.1 cm. Katrina applied to ulcerative base and dressed with dry sterile dressing. She is to change dressing daily. Ulceration does demonstrate reduction in size versus previous visit. Following debridement cultures were obtained 03/01/23 due to her continued significant drainage. She was empirically started on oral doxycycline 100 mg p.o. twice daily x14 days and oral ciprofloxacin 500 mg p.o. twice daily x14 days. She states that she picked up oral abx and started on 03/08/23. Culture results demonstrate PsA, Providencia rettgeri, corynebacterium jeikeium, Staphylococcus cohnii urealyti, and anaerobic cocci. 03/22/2023 she completed antibiotic course and due to patient leaving [facility] antibiotic course was extended. She will finished oral abx 04/05/23. She was instructed to stay off feet as much as possible to continue to aid in pressure reduction to the ulcerative site. Rx for knee scooter was written 03/29/23. She states she did get the knee scooter is using this to remain non-weight bearing to the right foot. Reminded her she is to remain nonweightbearing in the CAM boot for offloading with knee scooter assistance. Stressed importance of continuing knee scooter today. She was instructed to continue offloading in CAM boot for the right lower extremity with plantar offloading padding for first metatarsal head. She was instructed to remain in the CAM boot at all times and not to wear flip-flops. She may remove the boot for shower purposes and sleeping. She voices understanding of this. Discussed that pressure reduction to the site is essential for her healing status. Discussed proper diabetic diet to maintain tight glycemic control. Last A1c 09/2022 was 7.0%. Discussed continued diet and exercise along with lifestyle modification/weight loss to aid in healthy lifestyle. Discussed importance of daily foot checks. Discussed adequate protein intake to aid in wound healing. She may take Jeremy supplementation to aid in wound healing. Discussed being diabetic she is never to go barefoot and should wear closed toed shoes at all times. Discussed with her socks is considered barefoot. Encouraged shoe gear to be worn at all times. She voices understanding of this. Recommend diabetic shoes with plantar offloading padding once ulceration has healed. Discussed signs and symptoms of infection. Discussed if she notices redness about the ulcerative site that moves to the top of the foot and up the foot, purulent drainage from the wound site, increasing foul odor, or if she experiences fever greater than 101 degree, nausea, vomiting, chills that these are signs of a progressing infection and she should report to the ED for IV antibiotics. She voices understanding of this today. The following work up and care recommendations were made: Dressing: Katrina and dry sterile dressing. Change daily Wash: Soap and water Tissue growth optimization: Katrina Offload: CAM boot with plantar offloading padding. Remain nonweightbearing to right lower extremity with assistance of knee scooter. Vascular: Palpable pedal pulses bilateral. LEAS obtained and reviewed from 01/17/2023 demonstrating no significant arterial occlusive disease. She is noted to have mild arterial disease of the popliteal/SFA bilateral. On Doppler DP and PT are triphasic bilateral. Edema: No edema noted Infection: No signs of infection Pain: May take [id number] Tylenol for discomfort Host factors: DM type II with peripheral polyneuropathy, hallux limitus right foot, hallux malleus right foot, morbid obesity, equinus deformity all complicated healing potential I answered all the patient's questions. To return to the wound healing center in 2 weeks or call sooner if the patient has any questions or concerns. 05/24/23 0958 <Electronically signed by Jared Gibbons DPM> Cosigner Signature (if applicable): CC: ~ Signed [facility] Work Phone: [phone] 513-432211-09-2023 Progress note Author Jared Gibbons [facility] May 17, 2023 8:43pm Note Date/Time May 17, 2023 9 :32am [facility] [address] [place] [address] Progress Note - Wound Care 05/17/23 0930 MR#: [id number] Acct: [id number] Name: LUCRECIA HOU Rep #:[id number] : 1965 58 From: Jared worley DPM PCP: REX Castillo Status:REG RCR Location: History of Present Illness Date of Service: 05/17/23 Chief Complaint: Diabetic foot ulceration, right metatarsal-phalangeal joint, plantar surface History of Wound: This is a 58-year-old, morbidly-obese, diabetic female who presents with a largeulceration on the right great toe. The ulceration is located at the right firstmetatarsophalangeal joint, on the plantar surface. It has been present for approximately 4 months. According to the patient, it originated as a callus, and she ripped off the skin. She has been using Watkin's salve topically. 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 Her BMI is 41.8. Shedenies a history of smoking. She also denies a history of myocardial infarction, congestive heart failure, cerebrovascular accident, pulmonary disease,renal disease, and thyroid disease. Most recent hemoglobin A1c was 7.0 in September,. Laboratory studies obtained recently, dated January 03, 2023, are as follows: White blood count 8.7, hemoglobin 13.5, hematocrit 41.4, platelets 308,000, sodium 138, potassium 4.0, chloride 101, BUN 14, creatinine 0.65, glucose 140, calcium 9.3, bilirubin 0.40, AST 19, ALT 24, alkaline phosphatase 107, protein 7.8, albumin 3.3. Subjective Subjective This is a 58-year-old diabetic female who presents to the wound care center today for follow-up of a plantar first metatarsal head ulceration of the right foot. She is changing dressings daily with Katrina. She has continued to offload in the CAM boot with plantar offloading padding and remaining nonweightbearing to the right lower extremity with assistance of knee scooter. She denies any constitutional symptoms. She denies further complaints. Objective Data Objective Data Vital Signs: Vital Signs Temp Pulse Resp BP O2 Del Method 97.0 F L 72 18 123/66 H Room Air 05/09/23 00:40 05/09/23 00:40 05/17/23 08:40 05/09/23 00:40 05/17/23 08:40 Oxygen Delivery Method Room Air Weight: 110.677 kg Body Mass Index (BMI) 41.8 Physical Exam Const alert, oriented x3, no apparent distress and well nourished General Appearance: cooperative HEENT normocephalic Eyes General Eye: normal appearance of both eyes Neck General: normal visual inspection Lymph Lymphatic: no lymphadenopathy noted and no lymphedema noted Resp normal respiratory effort Cardio regular rate and regular rhythm Extremity normal capillary refill, no joint enlargement, no calf tenderness and no pedal edema Extremity Narrative: DP and PT pulses palpable bilateral. Capillary fill time to the digits less than 5 seconds bilateral. Hair growth diminished to the digits bilateral. Dermatological: Skin appears well-hydrated with normal turgor. Hyperkeratotic tissue Sub first metatarsal head of the left foot with no evidence of open wound. There is a large ulceration noted to the plantar aspect of the first metatarsal head of the right foot with surrounding hyperkeratotic tissue and maceration. Wound bed demonstrates granular tissue. No purulent drainage, no malodor, no palpable fluctuance/bogginess, no visible abscess formation, no lymphangitic streaking. Ulceration does not probe to bone. Musculoskeletal: Muscle strength 5 of 5 age-appropriate. She does demonstrate decreased range of motion of the first metatarsophalangeal joint bilateral without pain or crepitus. Decreased range of motion of the ankle joint in dorsiflexion with the knee extended without pain or crepitus bilateral. Hammertoe deformity of the right hallux. No pain to palpation about the ulcerative site plantar first metatarsal head right foot Skin no rashes or lesions noted, skin turgor normal and no jaundice Neuro moves all extremities Neuro Narrative: Decreased protective sensation secondary to diabetic peripheral polyneuropathy Debridement Note Debridement Note Wound debrided: Sub first metatarsal right foot Laterality: Right Wound Grade/Stage: Nichols stage I Type of Debridement: Excisional debridement Anesthesia Used: 5% Lidocaine Gel Depth: Down to and including healthy tissue and in the subcutaneous layer Percentage of wound debrided: 100 Instrument Used: #15 blade Tissue Removed: Fibrous, devitalized subcutaneous, biofilm, slough Severity: Fat Layer Exposed Amount of bleeding with debridement: Mild Bleeding Controlled with: Compression and gauze Patient tolerated procedure: Patient tolerated procedure well Post-Debridement Measurements and Additional Note: Post-Debridement Measurements/Treatment - Nurse 1 - General Ulcer Assessment Start: 05/17/23 08:37 Freq: Status: Active Protocol: JAXSON Activity Type Activity Date Activity User E-sign Co-sign Detail Recorded Client Recorded Date Recorded By Document 05/17/23 08:40 [employer] 05/17/23 08:47 KW 05/17/23 08:40 - Today's Visit Information Type of service Follow-up Visit (Physician/AUTOMOTIVE PROFESSIONAL ) Arrival Mode Ambulatory Patient Identification Verified (Name & Yes ) Height and Weight Body Mass Index (BMI) 41.8 BMI Classification Obese Vital Signs Pulse Location Monitor Respiratory Rate (12-18) 18 Respiratory rate source Observation Oxygen Delivery Method Room Air History Since Last Visit- (Skip if this is Patient's initial visit) Have you changed medications since your No last visit? Any new allergies or adverse reactions No Had a fall/change in ADL's that may No increase risk of falls Signs or symptoms of abuse and/or No neglect since last visit Have you been in the hospital since your No last visit? Has dressing in place as prescribed Yes Has compression in place as prescribed No Has offloadiing in place as prescribed Yes Experienced any changes in pain level or No management Left Footwear Regular Shoe Right Footwear Removable Cast Walker/Walking Boot Pain Scale: 0-10 Numeric Is Patient Pain Free? Yes - Nurse 1 - General Ulcer Measurement Start: 05/17/23 08:37 Freq: Status: Active Protocol: Activity Type Activity Date Activity User E-sign Co-sign Detail Recorded Client Recorded Date Recorded By Document 05/17/23 08:40 KW [employer] 05/17/23 08:47 KW 05/17/23 08:40 Wound Center Nurse 1 #1 right plantar foot -Current Size (cm) - Length 0.5 -Current Size (cm) - Width 0.3 -Current Size (cm) - Depth 0.2 -Total Square Cm 0.15 -Exudate Amt Small -Exudate Type Serosanguineous -Wound Margin Thickened -Granulation Amt Small (1-33%) -Granulation Quality Red -Necrosis Amt Small (1-33%) -Necrotic Tissue Type Adherent Slough -Texture (Kelsie-wound Skin Appearance) Assessed,Callus -Moisture (Kelsie-wound Skin Appearance) Assessed,Dry/ Scaly -Color (Kelsie-wound Skin Appearance) Assessed -Temperature (Kelsie-wound Skin No Abnormality Appearance) (Pt Warm) -Ulcer Cleansing Soap and Water -Anesthetic Used 5% Lidocaine Gel Assessment/Plan Assessment/Plan (1) Gastrocnemius equinus of right lower extremity: CODE(S): M21.861 - Other specified acquired deformities of right lower leg (2) Non-pressure chronic ulcer of other part of right foot with fat layer exposed: CODE(S): L97.512 - Non-pressure chronic ulcer of other part of right foot with fat layer exposed (3) Acquired hallux limitus of right foot: CODE(S): M20.5X1 - Other deformities of toe(s) (acquired), right foot (4) Hallux malleus of right foot: CODE(S): M20.31 - Hallux varus (acquired), right foot (5) Type 2 diabetes mellitus with foot ulcer: CODE(S): E11.621 - Type 2 diabetes mellitus with foot ulcer; L97.509 - Non- pressure chronic ulcer of other part of unspecified foot with unspecified severity (6) Diabetes mellitus with diabetic polyneuropathy: CODE(S): E11.42 - Type 2 diabetes mellitus with diabetic polyneuropathy (7) Diabetic foot ulcer associated with diabetes mellitus due to underlying condition: CODE(S): E08.621 - Diabetes mellitus due to underlying condition with footulcer; L97.509 - Non-pressure chronic ulcer of other part of unspecified foot with unspecified severity QUALIFIERS: Diabetic foot ulcer location: toe Laterality: right Non-pressure ulcer stage: with fat layer exposed Qualified Code(s): E08.621 - Diabetes mellitus due to underlying condition with foot ulcer; L97.512 - Non-pressure chronic ulcer of other part of right foot with fat layer exposed (8) Peripheral neuropathy: CODE(S): G62.9 - Polyneuropathy, unspecified (9) Hyperlipidemia: CODE(S): E78.5 - Hyperlipidemia, unspecified (10) Hypertension: CODE(S): I10 - Essential (primary) hypertension (11) Morbid obesity with BMI of 40.0-44.9, adult: CODE(S): E66.01 - Morbid (severe) obesity due to excess calories; Z68.41 -Body mass index [BMI] 40.0-44.9, adult PLAN: Plan Patient seen and evaluated. Patient was non-weight bearing in CAM boot with plantar offloading padding and knee scooter today I have reviewed the LEAS performed 01/17/2023 demonstrating: Left foot triphasic DP and PT on Doppler; Indices left foot PT- 1.05. DP 1.03, Digit 0.91; right foot triphasic DP and PT on Doppler; Indices foot PT 1.10, DP 1.16, digit noncompressible. PVR diminished at ankle and digit on left with noncompressibledigit right foot. Impression no evidence of significant occlusive arterial disease. Reviewed diagnostic data from 01/17/2023 demonstrating WBC of 8.7 Radiographic imaging obtained 01/17/2023 demonstrating no evidence of osteomyelitis. I have reviewed this imaging and concur with the radiographic read. Updated radiograph of the right foot ordered 03/29/2023, radiograph demonstrates no signs of osteomyelitis. I have reviewed her culture results which were obtained 01/17/2023 demonstrating:Providencia rettgeri, Staph aureus, Stap agalactaie, and Kocuria kristinae. Shewas prescribed Augmentin [address] Omar MD. 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 She did apple picking supervisor antibiotic and has completed this antibiotic course. Ulceration underwent debridement as noted in the clinical panel above. Ulcerative site demonstrates healthy granular base with surrounding hyperkeratosis. No signs of infection. Ulceration measures 0.9 cm x 0.4 cm x 0.1 cm. Katrina applied to ulcerative base and dressed with dry sterile dressing. She is to change dressing daily. Ulceration does demonstrate reduction in size versus previous visit. Following debridement cultures were obtained 03/01/23 due to her continued significant drainage. She was empirically started on oral doxycycline 100 mg p.o. twice daily x14 days and oral ciprofloxacin 500 mg p.o. twice daily x14 days. She states that she picked up oral abx and started on 03/08/23. Culture results demonstrate PsA, Providencia rettgeri, corynebacterium jeikeium, Staphylococcus cohnii urealyti, and anaerobic cocci. 03/22/2023 she completed antibiotic course and due to patient leaving town antibiotic course was extended. She will finished oral abx 04/05/23. She was instructed to stay off feet as much as possible to continue to aid in pressure reduction to the ulcerative site. Rx for knee scooter was written 03/29/23. She states she did get the knee scooter is using this to remain non-weight bearing to the right foot. Reminded her she is to remain nonweightbearing in the CAM boot for offloading with knee scooter assistance. Stressed importance of continuing knee scooter today. She was instructed to continue offloading in CAM boot for the right lower extremity with plantar offloading padding for first metatarsal head. She was instructed to remain in the CAM boot at all times and not to wear flip-flops. She may remove the boot for shower purposes and sleeping. She voices understanding of this. Discussed that pressure reduction to the site is essential for her healing status. Discussed proper diabetic diet to maintain tight glycemic control. Last A1c 09/2022 was 7.0%. Discussed continued diet and exercise along with lifestyle modification/weight loss to aid in healthy lifestyle. Discussed importance of daily foot checks. Discussed adequate protein intake to aid in wound healing. She may take Jeremy supplementation to aid in wound healing. Discussed being diabetic she is never to go barefoot and should wear closed toedshoes at all times. Discussed with her socks is considered barefoot. Encouraged shoe gear to be worn at all times. She voices understanding of this. Recommend diabetic shoes with plantar offloading padding once ulceration has healed. Discussed signs and symptoms of infection. Discussed if she notices redness about the ulcerative site that moves to the top of the foot and up the foot, purulent drainage from the wound site, increasing foul odor, or if she experiences fever greater than 101 degree, nausea, vomiting, chills that these are signs of a progressing infection and she should report to the ED for IV antibiotics. She voices understanding of this today. The following work up and care recommendations were made: Dressing: Katrina and dry sterile dressing. Change daily Wash: Soap and water Tissue growth optimization: Katrina Offload: CAM boot with plantar offloading padding. Remain nonweightbearing to right lower extremity with assistance of knee scooter. Vascular: Palpable pedal pulses bilateral. LEAS obtained and reviewed from 01/17/2023 demonstrating no significant arterial occlusive disease. She is notedto have mild arterial disease of the popliteal/SFA bilateral. On Doppler DP andPT are triphasic bilateral. Edema: No edema noted Infection: No signs of infection Pain: May take [id number]-[id number] Tylenol for discomfort Host factors: DM type II with peripheral polyneuropathy, hallux limitus right foot, hallux malleus right foot, morbid obesity, equinus deformity all complicated healing potential I answered all the patient's questions. To return to the wound healing center in 1 week or call sooner if the patient has any questions or concerns. 05/17/232042 <Electronically signed by Jared Gibbons DPM> Cosigner Signature (if applicable): CC: ~ Signed [facility] Work Phone: 1(301) 970-450610-26-2023 Progress note Author Jared [facility] May 03, 2023 5:29pm Note Date/Time May 03, 2023 1 0:04am [facility] [address] [place] [address] Progress Note - Wound Care 05/03/23 1004 MR#: [id number] Acct: [id number] Name: LUCRECIA HOU Rep #:[id number] : 1965 58 From: Jared worley DPM PCP: REX Castillo Status:REG RCR Location: History of Present Illness Date of Service: 05/03/23 Chief Complaint: Diabetic foot ulceration, right metatarsal-phalangeal joint, plantar surface History of Wound: This is a 58-year-old, morbidly-obese, diabetic female who presents with a largeulceration on the right great toe. The ulceration is located at the right firstmetatarsophalangeal joint, on the plantar surface. It has been present for approximately 4 months. According to the patient, it originated as a callus, and she ripped off the skin. She has been using Watkin's salve topically. 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 Her BMI is 41.8. Shedenies a history of smoking. She also denies a history of myocardial infarction, congestive heart failure, cerebrovascular accident, pulmonary disease,renal disease, and thyroid disease. Most recent hemoglobin A1c was 7.0 in September,. Laboratory studies obtained recently, dated January 03, 2023, are as follows: White blood count 8.7, hemoglobin 13.5, hematocrit 41.4, platelets 308,000, sodium 138, potassium 4.0, chloride 101, BUN 14, creatinine 0.65, glucose 140, calcium 9.3, bilirubin 0.40, AST 19, ALT 24, alkaline phosphatase 107, protein 7.8, albumin 3.3. Subjective Subjective This is a 58-year-old diabetic female who presents to the wound care center today for follow-up of a plantar first metatarsal head ulceration of the right foot. Graft in place the wound site. She is changing outer dressings daily. Shehas continued to offload in the CAM boot with plantar offloading padding. She states she is offloading with knee scooter and cam boot. She has recently returned from a trip to [place]. She denies any constitutional symptoms. She denies further complaints. Objective Data Objective Data Vital Signs: Vital Signs Temp Pulse Resp BP 97.0 F L 72 16 123/66 H 05/03/23 09:58 05/03/23 09:58 05/03/23 09:58 05/03/23 09:58 Weight: 110.677 kg Body Mass Index (BMI) 41.8 Physical Exam Const alert, oriented x3, no apparent distress and well nourished General Appearance: cooperative HEENT normocephalic Eyes General Eye: normal appearance of both eyes Neck General: normal visual inspection Lymph Lymphatic: no lymphadenopathy noted and no lymphedema noted Resp normal respiratory effort Cardio regular rate and regular rhythm Extremity normal capillary refill, no joint enlargement, no calf tenderness and no pedal edema Extremity Narrative: DP and PT pulses palpable bilateral. Capillary fill time to the digits less than 5 seconds bilateral. Hair growth diminished to the digits bilateral. Dermatological: Skin appears well-hydrated with normal turgor. Hyperkeratotic tissue Sub first metatarsal head of the left foot with no evidence of open wound. There is a large ulceration noted to the plantar aspect of the first metatarsal head of the right foot with surrounding hyperkeratotic tissue and maceration. Wound bed demonstrates granular tissue. No purulent drainage, no malodor, no palpable fluctuance/bogginess, no visible abscess formation, no lymphangitic streaking. Ulceration does not probe to bone. Musculoskeletal: Muscle strength 5 of 5 age-appropriate. She does demonstrate decreased range of motion of the first metatarsophalangeal joint bilateral without pain or crepitus. Decreased range of motion of the ankle joint in dorsiflexion with the knee extended without pain or crepitus bilateral. Hammertoe deformity of the right hallux. No pain to palpation about the ulcerative site plantar first metatarsal head right foot Skin no rashes or lesions noted, skin turgor normal and no jaundice Neuro moves all extremities Neuro Narrative: Decreased protective sensation secondary to diabetic peripheral polyneuropathy Debridement Note Debridement Note Wound debrided: Sub first metatarsal head right foot Laterality: Right Wound Grade/Stage: Nichols stage I Type of Debridement: Excisional debridement Anesthesia Used: 5% Lidocaine Gel Depth: Down to and including healthy tissue and in the subcutaneous layer Percentage of wound debrided: 100 Instrument Used: 3mm curette Tissue Removed: Fibrous, devitalized subcutaneous, biofilm, slough Severity: Fat Layer Exposed Amount of bleeding with debridement: Mild Bleeding Controlled with: Compression and gauze Patient tolerated procedure: Patient tolerated procedure well Post-Debridement Measurements and Additional Note: Post-Debridement Measurements/Treatment - Nurse 1 - General Ulcer Assessment Start: 04/19/23 10:12 Freq: Status: Active Protocol: JAXSON Activity Type Activity Date Activity User E-sign Co-sign Detail Recorded Client Recorded Date Recorded By Document 04/19/23 10:12 DARVIN Desktop 04/19/23 10:14 DARVIN Document 05/03/23 09:58 Laptop 05/03/23 10:01 04/19/23 05/03/23 10:12 09:58 - Today's Visit Information Type of service Follow-up Visit Follow-up Visit (Physician/AUTOMOTIVE PROFESSIONAL (Physician/AUTOMOTIVE PROFESSIONAL ) ) Arrival Mode Ambulatory Ambulatory Transfer Assistance None Patient Identification Verified (Name & Yes Yes ) Patient Requires Transmission-Based No No Precautions Height and Weight Body Mass Index (BMI) 41.8 41.8 BMI Classification Obese Obese Vital Signs Temperature (97.8 F-99.1 F) 97.8 F 97.0 F L Temperature Source Temporal Temporal Pulse Rate (60-100) 106 H 72 Pulse Location Monitor Respiratory Rate (12-18) 18 16 Respiratory rate source Observation Blood Pressure (90/60-120/80) 196/97 H 123/66 H Blood Pressure Mean (mm Hg) 130 85 Source Monitor Position Sitting Blood Pressure Location Left Arm History Since Last Visit- (Skip if this is Patient's initial visit) Have you changed medications since your No No last visit? Any new allergies or adverse reactions No No Had a fall/change in ADL's that may No No increase risk of falls Signs or symptoms of abuse and/or No No neglect since last visit Have you been in the hospital since your No No last visit? Has dressing in place as prescribed Yes Yes Has compression in place as prescribed Yes N/A Has offloadiing in place as prescribed Yes Yes Experienced any changes in pain level or No No management Left Footwear Regular Shoe Right Footwear Surgical Shoe with pressure relief insole Pain Scale: 0-10 Numeric Is Patient Pain Free? Yes Yes WC - Nurse 1 - General Ulcer Measurement Start: 04/19/23 10:12 Freq: Status: Active Protocol: Activity Type Activity Date Activity User E-sign Co-sign Detail Recorded Client Recorded Date Recorded By Document 05/03/23 09:58 Laptop 05/03/23 10:01 05/03/23 09:58 Wound Center Nurse 1 #1 right plantar foot -Combined with other wound No -Current Size (cm) - Length 0.8 -Current Size (cm) - Width 0.3 -Current Size (cm) - Depth 0.1 -Total Square Cm 0.24 -Photo Taken No -Epithelialization Large 67-100% -Tunneling No -Undermining/Tunneling No -Circular Undermining No -Exudate Amt Small -Exudate Type Serosanguineous -Wound Margin Flat & Intact -Granulation Amt Large (67-100%) -Granulation Quality Red -Slough/Fibrin Yes -Necrosis Amt Small (1-33%) -Necrotic Tissue Type Adherent Slough -Structure Exposed N/A -Texture (Kelsie-wound Skin Appearance) Assessed,Callus -Moisture (Kelsie-wound Skin Appearance) Assessed,Dry/ Scaly -Color (Kelsie-wound Skin Appearance) Assessed -Temperature (Kelsie-wound Skin No Abnormality Appearance) (Pt Warm) -Tenderness on Palpation (Kelsie-wound No Skin Appearance) -Ulcer Cleansing Wound Cleanser -Foul Odor after Cleansing No -Anesthetic Used 5% Lidocaine Gel Lower Limb Edema Present NA WC - Nurse 2 - General Ulcer CM Notes Start: 04/19/23 10:12 Freq: Status: Active Protocol: Activity Type Activity Date Activity User E-sign Co-sign Detail Recorded Client Recorded Date Recorded By Document 04/19/23 17:59 PL [id number] 04/19/23 18:00 PL 04/19/23 17:59 Wound Center Nurse 2 #1 right plantar foot -Time 10:37 -Correct Patient Yes -Correct Side, Site, Position Yes -Correct Procedure Yes -Procedure Performed Yes -Type of Procedure Debridement -Clinical Debridement Subcutaneous -Tissue Removed Subcutaneous -Post Debridement (cm) - Length 1.5 -Post Debridement (cm) - Width 1.0 -Post Debridement (cm) - Depth 0.1 -Total Square (Post) (cm) 1.50 -Area of Debridement (cm) - Length 1.5 -Area of Debridement (cm) - Width 1.0 -Total Square (Area) (cm) 1.50 -Tunneling No -Undermining/Tunneling No -Circular Undermining No -Wound/Ulcer Outcome Not Healed -Ulcer Cleansing Rinsed/ Irrigated with Saline -Foul Odor after Cleansing No -Bioengineered Tissue Yes -Type of Bioengineered Tissue Epifix 18mm Disc -Expiration Date 01/07/28 -Product Lot Number [id number] -Percent Used 100 -Bleeding Controlled with Pressure -Treatment Response Procedure Tolerated Well -Debridement - Subq, 1st 20sq cm No -Apply Skin Sub - 1st 25 sq cm - Feet 1 -Epifix 18mm Disc 3 Pain Scale: 0-10 Numeric Is Patient Pain Free? Yes RADHA - Nurse 3 - General Ulcer D/C NN Start: 04/19/23 10:12 Freq: Status: Active Protocol: Activity Type Activity Date Activity User E-sign Co-sign Detail Recorded Client Recorded Date Recorded By Document 04/19/23 11:03 Desktop 04/19/23 11:03 04/19/23 11:03 Wound Care Center Nurse 3 #1 right plantar foot -Ulcer Cleansing Rinsed/ Irrigated with Saline -Foul Odor after Cleansing No -Primary Dressing Applied Optilok 6.5x10 -Primary Dressing Covered/Secured with Dry Gauze & Roll Gauze, Secured with Tape -Optilok 6.5x10 1 Pain Scale: 0-10 Numeric Is Patient Pain Free? Yes WC - Visit Discharge Discharge Condition Stable Ambulatory Status Ambulatory Transportation Private Auto Medication Reconcilliation completed & Yes provided to patient/care provider Clinical Summary of Care Provided Yes Assessment/Plan Assessment/Plan (1) Gastrocnemius equinus of right lower extremity: CODE(S): M21.861 - Other specified acquired deformities of right lower leg (2) Non-pressure chronic ulcer of other part of right foot with fat layer exposed: CODE(S): L97.512 - Non-pressure chronic ulcer of other part of right foot with fat layer exposed (3) Acquired hallux limitus of right foot: CODE(S): M20.5X1 - Other deformities of toe(s) (acquired), right foot (4) Hallux malleus of right foot: CODE(S): M20.31 - Hallux varus (acquired), right foot (5) Type 2 diabetes mellitus with foot ulcer: CODE(S): E11.621 - Type 2 diabetes mellitus with foot ulcer; L97.509 - Non- pressure chronic ulcer of other part of unspecified foot with unspecified severity (6) Diabetes mellitus with diabetic polyneuropathy: CODE(S): E11.42 - Type 2 diabetes mellitus with diabetic polyneuropathy (7) Diabetic foot ulcer associated with diabetes mellitus due to underlying condition: CODE(S): E08.621 - Diabetes mellitus due to underlying condition with footulcer; L97.509 - Non-pressure chronic ulcer of other part of unspecified foot with unspecified severity QUALIFIERS: Diabetic foot ulcer location: toe Laterality: right Non-pressure ulcer stage: with fat layer exposed Qualified Code(s): E08.621 - Diabetes mellitus due to underlying condition with foot ulcer; L97.512 - Non-pressure chronic ulcer of other part of right foot with fat layer exposed (8) Morbid obesity with BMI of 40.0-44.9, adult: CODE(S): E66.01 - Morbid (severe) obesity due to excess calories; Z68.41 -Body mass index [BMI] 40.0-44.9, adult (9) Hyperlipidemia: CODE(S): E78.5 - Hyperlipidemia, unspecified (10) Hypertension: CODE(S): I10 - Essential (primary) hypertension PLAN: Plan Patient seen and evaluated. Patient was non-weight bearing in CAM boot with plantar offloading padding and knee scooter today I have reviewed the LEAS performed 01/17/2023 demonstrating: Left foot triphasic DP and PT on Doppler; Indices left foot PT- 1.05. DP 1.03, Digit 0.91; right foot triphasic DP and PT on Doppler; Indices foot PT 1.10, DP 1.16, digit noncompressible. PVR diminished at ankle and digit on left with noncompressible digit right foot. Impression no evidence of significant occlusive arterial disease. Reviewed diagnostic data from 01/17/2023 demonstrating WBC of 8.7 Radiographic imaging obtained 01/17/2023 demonstrating no evidence of osteomyelitis. I have reviewed this imaging and concur with the radiographic read. Updated radiograph of the right foot ordered 03/29/2023, radiograph demonstrates no signs of osteomyelitis. I have reviewed her culture results which were obtained 01/17/2023 demonstrating: Providencia rettgeri, Staph aureus, Stap agalactaie, and Kocuria kristinae. She was prescribed Augmentin [address] Omar MD. 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 She did apple picking supervisor antibiotic and has completed this antibiotic course. Ulceration underwent debridement as noted in the clinical panel above. Ulcerative site demonstrates healthy granular base with surrounding hyperkeratosis. No signs of infection. Ulceration measures 1.1 cm x 0.3 cm x 0.1 cm. Katrina applied to ulcerative base and dressed with dry sterile dressing. She is to change dressing daily. Ulceration does demonstrate reduction in size versus previous visit. Following debridement cultures were obtained 03/01/23 due to her continued significant drainage. She was empirically started on oral doxycycline 100 mg p.o. twice daily x14 days and oral ciprofloxacin 500 mg p.o. twice daily x14 days. She states that she picked up oral abx and started on 03/08/23. Culture results demonstrate PsA, Providencia rettgeri, corynebacterium jeikeium, Staphylococcus cohnii urealyti, and anaerobic cocci. 03/22/2023 she completed antibiotic course and due to patient leaving town antibiotic course was extended. She will finished oral abx 04/05/23. She was instructed to stay off feet as much as possible to continue to aid in pressure reduction to the ulcerative site. Rx for knee scooter was written 03/29/23. She states she did get the knee scooter is using this to remain non-weight bearing to the right foot. Reminded her she is to remain nonweightbearing in the CAM boot for offloading with knee scooter assistance. Stressed importance of continuing knee scooter today. She was instructed to continue offloading in CAM boot for the right lower extremity with plantar offloading padding for first metatarsal head. She was instructed to remain in the CAM boot at all times and not to wear flip-flops. She may remove the boot for shower purposes and sleeping. She voices understanding of this. Discussed that pressure reduction to the site is essential for her healing status. Discussed proper diabetic diet to maintain tight glycemic control. Last A1c 09/2022 was 7.0%. Discussed continued diet and exercise along with lifestyle modification/weight loss to aid in healthy lifestyle. Discussed importance of daily foot checks. Discussed adequate protein intake to aid in wound healing. She may take Jeremy supplementation to aid in wound healing. Discussed being diabetic she is never to go barefoot and should wear closed toed shoes at all times. Discussed with her socks is considered barefoot. Encouraged shoe gear to be worn at all times. She voices understanding of this. Recommend diabetic shoes with plantar offloading padding once ulceration has healed. Discussed signs and symptoms of infection. Discussed if she notices redness about the ulcerative site that moves to the top of the foot and up the foot, purulent drainage from the wound site, increasing foul odor, or if she experiences fever greater than 101 degree, nausea, vomiting, chills that these are signs of a progressing infection and she should report to the ED for IV antibiotics. She voices understanding of this today. The following work up and care recommendations were made: Dressing: Katrina and dry sterile dressing. Change daily Wash: Soap and water Tissue growth optimization: Katrina Offload: CAM boot with plantar offloading padding. Remain nonweightbearing to right lower extremity with assistance of knee scooter. Vascular: Palpable pedal pulses bilateral. LEAS obtained and reviewed from 01/17/2023 demonstrating no significant arterial occlusive disease. She is noted to have mild arterial disease of the popliteal/SFA bilateral. On Doppler DP and PT are triphasic bilateral. Edema: No edema noted Infection: No signs of infection Pain: May take [id number] Tylenol for discomfort Host factors: DM type II with peripheral polyneuropathy, hallux limitus right foot, hallux malleus right foot, morbid obesity, equinus deformity all complicated healing potential I answered all the patient's questions. To return to the wound healing center in 2 weeks or call sooner if the patient has any questions or concerns. 05/03/23 1729 <Electronically signed by Jared Gibbons DPM> Cosigner Signature (if applicable): CC: ~ Signed [facility] Work Phone: 1(769) 303-810210-12-2023 Progress note Author Jared Gibbons [facility] April 19, 2023 10:48am Note Date/Time April 19, 2023 1 0:37am [facility] [address] [place] [address] Progress Note - Wound Care 04/19/23 1030 MR#: [id number] Acct: [id number] Name: LUCRECIA HOU Rep #:[id number] : 1965 58 From: Jared worley DPM PCP: REX Castillo Status:REG RCR Location: History of Present Illness Date of Service: 04/19/23 Chief Complaint: Diabetic foot ulceration, right metatarsal-phalangeal joint, plantar surface History of Wound: This is a 58-year-old, morbidly-obese, diabetic female who presents with a largeulceration on the right great toe. The ulceration is located at the right firstmetatarsophalangeal joint, on the plantar surface. It has been present for approximately 4 months. According to the patient, it originated as a callus, and she ripped off the skin. She has been using Watkin's salve topically. 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 Her BMI is 41.8. Delvin amado history of smoking. She also denies a history of myocardial infarction, congestive heart failure, cerebrovascular accident, pulmonary disease,renal disease, and thyroid disease. Most recent hemoglobin A1c was 7.0 in September,. Laboratory studies obtained recently, dated January 03, 2023, are as follows: White blood count 8.7, hemoglobin 13.5, hematocrit 41.4, platelets 308,000, sodium 138, potassium 4.0, chloride 101, BUN 14, creatinine 0.65, glucose 140, calcium 9.3, bilirubin 0.40, AST 19, ALT 24, alkaline phosphatase 107, protein 7.8, albumin 3.3. Subjective Subjective This is a 58-year-old diabetic female who presents to the wound care center today for follow-up of a plantar first metatarsal head ulceration of the right foot. Graft in place the wound site. She is changing outer dressings daily. Shehas continued to offload in the CAM boot with plantar offloading padding. She is continuing to take antibiotics. States that she did not get her knee scooterand has continued to ambulate in boot. She denies any constitutional symptoms. She denies further complaints. Objective Data Objective Data Vital Signs: Vital Signs Temp Pulse Resp BP 97.8 F 106 H 18 196/97 H 04/19/23 10:12 04/19/23 10:12 04/19/23 10:12 04/19/23 10:12 Weight: 110.677 kg Body Mass Index (BMI) 41.8 Physical Exam Const alert, oriented x3, no apparent distress and well nourished General Appearance: cooperative HEENT normocephalic Eyes General Eye: normal appearance of both eyes Neck General: normal visual inspection Lymph Lymphatic: no lymphadenopathy noted and no lymphedema noted Resp normal respiratory effort Cardio regular rate and regular rhythm Extremity normal capillary refill, no joint enlargement, no calf tenderness and no pedal edema Extremity Narrative: DP and PT pulses palpable bilateral. Capillary fill time to the digits less than 5 seconds bilateral. Hair growth diminished to the digits bilateral. Dermatological: Skin appears well-hydrated with normal turgor. Hyperkeratotic tissue Sub first metatarsal head of the left foot with no evidence of open wound. There is a large ulceration noted to the plantar aspect of the first metatarsal head of the right foot with surrounding hyperkeratotic tissue and maceration. Wound bed demonstrates granular tissue. No purulent drainage, no malodor, no palpable fluctuance/bogginess, no visible abscess formation, no lymphangitic streaking. Ulceration does not probe to bone. Musculoskeletal: Muscle strength 5 of 5 age-appropriate. She does demonstrate decreased range of motion of the first metatarsophalangeal joint bilateral without pain or crepitus. Decreased range of motion of the ankle joint in dorsiflexion with the knee extended without pain or crepitus bilateral. Hammertoe deformity of the right hallux. No pain to palpation about the ulcerative site plantar first metatarsal head right foot Skin no rashes or lesions noted, skin turgor normal and no jaundice Neuro moves all extremities Neuro Narrative: Decreased protective sensation secondary to diabetic peripheral polyneuropathy Debridement Note Debridement Note Wound debrided: Sub first metatarsal head Laterality: Right Wound Grade/Stage: Nichols stage I Type of Debridement: Excisional debridement Anesthesia Used: 5% Lidocaine Gel Depth: Down to and including healthy tissue and in the subcutaneous layer Percentage of wound debrided: 100 Instrument Used: 5mm curette Tissue Removed: Fibrous, devitalized subcutaneous, biofilm, slough Severity: Fat Layer Exposed Amount of bleeding with debridement: Mild Bleeding Controlled with: Compression and gauze Patient tolerated procedure: Patient tolerated procedure well Post-Debridement Measurements and Additional Note: Post-Debridement Measurements/Treatment - Nurse 1 - General Ulcer Assessment Start: 04/19/23 10:12 Freq: Status: Active Protocol: RADHA.LOWEXT Activity Type Activity Date Activity User E-sign Co-sign Detail Recorded Client Recorded Date Recorded By Document 04/19/23 10:12 Desktop 04/19/23 10:14 04/19/23 10:12 - Today's Visit Information Type of service Follow-up Visit (Physician/AUTOMOTIVE PROFESSIONAL ) Arrival Mode Ambulatory Transfer Assistance None Patient Identification Verified (Name & Yes ) Patient Requires Transmission-Based No Precautions Height and Weight Body Mass Index (BMI) 41.8 BMI Classification Obese Vital Signs Temperature (97.8 F-99.1 F) 97.8 F Temperature Source Temporal Pulse Rate (60-100) 106 H Respiratory Rate (12-18) 18 Blood Pressure (90/60-120/80) 196/97 H Blood Pressure Mean (mm Hg) 130 History Since Last Visit- (Skip if this is Patient's initial visit) Have you changed medications since your No last visit? Any new allergies or adverse reactions No Had a fall/change in ADL's that may No increase risk of falls Signs or symptoms of abuse and/or No neglect since last visit Have you been in the hospital since your No last visit? Has dressing in place as prescribed Yes Has compression in place as prescribed Yes Has offloadiing in place as prescribed Yes Experienced any changes in pain level or No management Pain Scale: 0-10 Numeric Is Patient Pain Free? Yes Assessment/Plan Assessment/Plan (1) Gastrocnemius equinus of right lower extremity: CODE(S): M21.861 - Other specified acquired deformities of right lower leg (2) Non-pressure chronic ulcer of other part of right foot with fat layer exposed: CODE(S): L97.512 - Non-pressure chronic ulcer of other part of right foot with fat layer exposed (3) Acquired hallux limitus of right foot: CODE(S): M20.5X1 - Other deformities of toe(s) (acquired), right foot (4) Hallux malleus of right foot: CODE(S): M20.31 - Hallux varus (acquired), right foot (5) Type 2 diabetes mellitus with foot ulcer: CODE(S): E11.621 - Type 2 diabetes mellitus with foot ulcer; L97.509 - Non- pressure chronic ulcer of other part of unspecified foot with unspecified severity (6) Diabetes mellitus with diabetic polyneuropathy: CODE(S): E11.42 - Type 2 diabetes mellitus with diabetic polyneuropathy (7) Diabetic foot ulcer associated with diabetes mellitus due to underlying condition: CODE(S): E08.621 - Diabetes mellitus due to underlying condition with footulcer; L97.509 - Non-pressure chronic ulcer of other part of unspecified foot with unspecified severity QUALIFIERS: Diabetic foot ulcer location: toe Laterality: right Non-pressure ulcer stage: with fat layer exposed Qualified Code(s): E08.621 - Diabetes mellitus due to underlying condition with foot ulcer; L97.512 - Non-pressure chronic ulcer of other part of right foot with fat layer exposed (8) Morbid obesity with BMI of 40.0-44.9, adult: CODE(S): E66.01 - Morbid (severe) obesity due to excess calories; Z68.41 -Body mass index [BMI] 40.0-44.9, adult (9) Hyperlipidemia: CODE(S): E78.5 - Hyperlipidemia, unspecified (10) Hypertension: CODE(S): I10 - Essential (primary) hypertension PLAN: Plan Patient seen and evaluated. Patient was ambulating CAM boot with plantar offloading padding today I have reviewed the LEAS performed 01/17/2023 demonstrating: Left foot triphasic DP and PT on Doppler; Indices left foot PT- 1.05. DP 1.03, Digit 0.91; right foot triphasic DP and PT on Doppler; Indices foot PT 1.10, DP 1.16, digit noncompressible. PVR diminished at ankle and digit on left with noncompressible digit right foot. Impression no evidence of significant occlusive arterial disease. Reviewed diagnostic data from 01/17/2023 demonstrating WBC of 8.7 Radiographic imaging obtained 01/17/2023 demonstrating no evidence of osteomyelitis. I have reviewed this imaging and concur with the radiographic read. Updated radiograph of the right foot ordered 03/29/2023, radiograph demonstrates no signs of osteomyelitis. I have reviewed her culture results which were obtained 01/17/2023 demonstrating: Providencia rettgeri, Staph aureus, Stap agalactaie, and Kocuria kristinae. She was prescribed Augmentin [address] Omar MD. 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 She did apple picking supervisor antibiotic and has completed this antibiotic course. Ulceration underwent debridement as noted in the clinical panel above. Ulcerative site demonstrates healthy granular base with surrounding hyperkeratosis and maceration. No signs of infection. Ulceration measures 1.5 cm x 1.0 cm x 0.1 cm. EpiFix #10 applied to ulcerative base and dressed with Adaptic touch, anchored with Steri-Strips. Absorbant dressing applied followed by Dry sterile dressing applied. She was instructed to change outer dressings as needed due to significant drainage. She was instructed to not get the site wet. Ulceration does demonstrate reduction in size versus previous visit. Following debridement cultures were obtained 03/01/23 due to her continued significant drainage. She was empirically started on oral doxycycline 100 mg p.o. twice daily x14 days and oral ciprofloxacin 500 mg p.o. twice daily x14 days. She states that she picked up oral abx and started on 03/08/23. Culture results demonstrate PsA, Providencia rettgeri, corynebacterium jeikeium, Staphylococcus cohnii urealyti, and anaerobic cocci. 03/22/2023 she completed antibiotic course and due to patient leaving town antibiotic course was extended. She will finished oral abx 04/05/23. Ulcerative site demonstrates reduction in size versus previous visit, there is some maceration still about ulcerative site. She was instructed to stay off feet as much as possible to continue to aid in pressure reduction to the ulcerative site. Due to slight increase in size from previous visit she will now remain nonweightbearing to the right lower extremity with assistance of knee scooter. Rx for knee scooter was written 03/29/23. She states she did get the knee scooter is using this to remain non-weight bearing to the right foot. Reminded her she is to remain nonweightbearing in the CAM boot for offloading with knee scooter assistance. Stressed importance of continuing knee scooter today. She was instructed to continue offloading in CAM boot for the right lower extremity with plantar offloading padding for first metatarsal head. She was instructed to remain in the CAM boot at all times and not to wear flip-flops. She may remove the boot for shower purposes and sleeping. She voices understanding of this. Discussed that pressure reduction to the site is essential for her healing status. Discussed proper diabetic diet to maintain tight glycemic control. Last A1c 09/2022 was 7.0%. Discussed continued diet and exercise along with lifestyle modification/weight loss to aid in healthy lifestyle. Discussed importance of daily foot checks. Discussed adequate protein intake to aid in wound healing. She may take Jeremy supplementation to aid in wound healing. Discussed being diabetic she is never to go barefoot and should wear closed toed shoes at all times. Discussed with her socks is considered barefoot. Encouraged shoe gear to be worn at all times. She voices understanding of this. Recommend diabetic shoes with plantar offloading padding once ulceration has healed. Discussed signs and symptoms of infection. Discussed if she notices redness about the ulcerative site that moves to the top of the foot and up the foot, purulent drainage from the wound site, increasing foul odor, or if she experiences fever greater than 101 degree, nausea, vomiting, chills that these are signs of a progressing infection and she should report to the ED for IV antibiotics. She voices understanding of this today. The following work up and care recommendations were made: Dressing: EpiFix, Adaptic touch, Steri-Strips, dry sterile dressing. Change outer dressings as needed. Wash: Do not get wet Tissue growth optimization: EpiFix Offload: CAM boot with plantar offloading padding Vascular: Palpable pedal pulses bilateral. LEAS obtained and reviewed from 01/17/2023 demonstrating no significant arterial occlusive disease. She is noted to have mild arterial disease of the popliteal/SFA bilateral. On Doppler DP and PT are triphasic bilateral. Edema: No edema noted Infection: No signs of infection Pain: May take [id number] Tylenol for discomfort Host factors: DM type II with peripheral polyneuropathy, hallux limitus right foot, hallux malleus right foot, morbid obesity, equinus deformity all complicated healing potential I answered all the patient's questions. To return to the wound healing center in 2 weeks or call sooner if the patient has any questions or concerns. 04/19/23 1048 <Electronically signed by Jared Gibbons DPM> Cosigner Signature (if applicable): CC: ~ Signed [facility] Work Phone: [phone]) 293-802209-28-2023 Progress note Author Jared Gibbons [facility] April 05, 2023 12:56pm Note Date/Time April 05, 2023 10:20am [facility] [address] [place] [address] Progress Note - Wound Care 04/05/23 1019 MR#: [id number] Acct: [id number] Name: LUCRECIA HOU Rep #:[id number] : 1965 58 From: Jared worley DPM PCP: REX Castillo Status:REG RCR Location: History of Present Illness Date of Service: 04/05/23 Chief Complaint: Diabetic foot ulceration, right metatarsal-phalangeal joint, plantar surface History of Wound: This is a 58-year-old, morbidly-obese, diabetic female who presents with a largeulceration on the right great toe. The ulceration is located at the right firstmetatarsophalangeal joint, on the plantar surface. It has been present for approximately 4 months. According to the patient, it originated as a callus, and she ripped off the skin. She has been using Watkin's salve topically. 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 Her BMI is 41.8. Shedenies a history of smoking. She also denies a history of myocardial infarction, congestive heart failure, cerebrovascular accident, pulmonary disease,renal disease, and thyroid disease. Most recent hemoglobin A1c was 7.0 in September,. Laboratory studies obtained recently, dated January 03, 2023, are as follows: White blood count 8.7, hemoglobin 13.5, hematocrit 41.4, platelets 308,000, sodium 138, potassium 4.0, chloride 101, BUN 14, creatinine 0.65, glucose 140, calcium 9.3, bilirubin 0.40, AST 19, ALT 24, alkaline phosphatase 107, protein 7.8, albumin 3.3. Subjective Subjective This is a 58-year-old diabetic female who presents to the wound care center today for follow-up of a plantar first metatarsal head ulceration of the right foot. Graft in place the wound site. She is changing outer dressings daily. Shehas continued to offload in the CAM boot with plantar offloading padding. She is continuing to take antibiotics. States that she did not get her knee scooterand has continued to ambulate in boot. She denies any constitutional symptoms. She denies further complaints. Objective Data Objective Data Vital Signs: Vital Signs Temp Pulse Resp BP O2 Del Method 96.4 F L 79 18 150/81 H Room Air 04/05/23 09:47 04/05/23 09:47 04/05/23 09:47 04/05/23 09:47 03/22/23 09:42 Oxygen Delivery Method Room Air Weight: 110.677 kg Body Mass Index (BMI) 41.8 Physical Exam Const alert, oriented x3, no apparent distress and well nourished General Appearance: cooperative HEENT normocephalic Eyes General Eye: normal appearance of both eyes Neck General: normal visual inspection Lymph Lymphatic: no lymphadenopathy noted and no lymphedema noted Resp normal respiratory effort Cardio regular rate and regular rhythm Extremity normal capillary refill, no joint enlargement, no calf tenderness and no pedal edema Extremity Narrative: DP and PT pulses palpable bilateral. Capillary fill time to the digits less than 5 seconds bilateral. Hair growth diminished to the digits bilateral. Dermatological: Skin appears well-hydrated with normal turgor. Hyperkeratotic tissue Sub first metatarsal head of the left foot with no evidence of open wound. There is a large ulceration noted to the plantar aspect of the first metatarsal head of the right foot with surrounding hyperkeratotic tissue and maceration. Wound bed demonstrates granular tissue. No purulent drainage, no malodor, no palpable fluctuance/bogginess, no visible abscess formation, no lymphangitic streaking. Ulceration does not probe to bone. Musculoskeletal: Muscle strength 5 of 5 age-appropriate. She does demonstrate decreased range of motion of the first metatarsophalangeal joint bilateral without pain or crepitus. Decreased range of motion of the ankle joint in dorsiflexion with the knee extended without pain or crepitus bilateral. Hammertoe deformity of the right hallux. No pain to palpation about the ulcerative site plantar first metatarsal head right foot. Skin no rashes or lesions noted, skin turgor normal and no jaundice Neuro moves all extremities Neuro Narrative: Diminished protective sensation bilaterally secondary to diabetic peripheral polyneuropathy Debridement Note Debridement Note Wound debrided: Sub first metatarsal head Laterality: Right Wound Grade/Stage: Nichols stage I Type of Debridement: Excisional debridement Anesthesia Used: 5% Lidocaine Gel Depth: Down to and including healthy tissue and in the subcutaneous layer Percentage of wound debrided: 100 Instrument Used: 5mm curette Tissue Removed: Fibrous, devitalized subcutaneous, biofilm, slough Severity: Fat Layer Exposed Amount of bleeding with debridement: Mild Bleeding Controlled with: Compression and gauze Patient tolerated procedure: Patient tolerated procedure well Post-Debridement Measurements and Additional Note: Post-Debridement Measurements/Treatment RADHA - Nurse 1 - General Ulcer Assessment Start: 03/15/23 09:45 Freq: Status: Active Protocol: JAXSON Activity Type Activity Date Activity User E-sign Co-sign Detail Recorded Client Recorded Date Recorded By Document 03/15/23 09:45 DL [id number] 03/15/23 09:54 DL Document 03/22/23 09:42 KW [id number] 03/22/23 09:54 KW Document 03/29/23 09:41 DL Desktop 03/29/23 09:47 DL Document 04/05/23 09:47 DL Desktop 04/05/23 09:55 DL 03/15/23 03/22/23 03/29/23 09:45 09:42 09:41 WC - Today's Visit Information Type of service Follow-up Visit Follow-up Visit Follow-up Visit (Physician/AUTOMOTIVE PROFESSIONAL (Physician/AUTOMOTIVE PROFESSIONAL (Physician/AUTOMOTIVE PROFESSIONAL ) ) ) Arrival Mode Ambulatory Ambulatory Ambulatory Transfer Assistance None None Patient Identification Verified (Name & Yes Yes Yes ) Patient Requires Transmission-Based No No Precautions Height and Weight Body Mass Index (BMI) 41.8 41.8 41.8 BMI Classification Obese Obese Obese Vital Signs Temperature (97.8 F-99.1 F) 96.9 F L 96.6 F L 96.9 F L Temperature Source Temporal Temporal Temporal Pulse Rate (60-100) 74 74 91 Pulse Location Monitor Monitor Monitor Respiratory Rate (12-18) 20 H 18 20 H Respiratory rate source Observation Observation Observation Oxygen Delivery Method Room Air Blood Pressure (90/60-120/80) 157/78 H 146/67 H 164/89 H Blood Pressure Mean (mm Hg) 104 93 114 Source Monitor Monitor Monitor Position Sitting Sitting Blood Pressure Location Left Arm Left Arm History Since Last Visit- (Skip if this is Patient's initial visit) Have you changed medications since your No No No last visit? Any new allergies or adverse reactions No No No Had a fall/change in ADL's that may No No No increase risk of falls Signs or symptoms of abuse and/or No No No neglect since last visit Have you been in the hospital since your No No No last visit? Has dressing in place as prescribed Yes Yes Yes Has compression in place as prescribed N/A Yes Yes Has offloadiing in place as prescribed Yes Yes Yes Experienced any changes in pain level or No No No management Left Footwear Regular Shoe Right Footwear Removable Cast Removable Cast Removable Cast Walker/Walking Walker/Walking Walker/Walking Boot Boot Boot Pain Scale: 0-10 Numeric Is Patient Pain Free? Yes Yes Yes 04/05/23 09:47 WC - Today's Visit Information Type of service Follow-up Visit (Physician/AUTOMOTIVE PROFESSIONAL ) Arrival Mode Ambulatory Transfer Assistance None Patient Identification Verified (Name & Yes ) Patient Requires Transmission-Based No Precautions Height and Weight Body Mass Index (BMI) 41.8 BMI Classification Obese Vital Signs Temperature (97.8 F-99.1 F) 96.4 F L Temperature Source Temporal Pulse Rate (60-100) 79 Pulse Location Monitor Respiratory Rate (12-18) 18 Respiratory rate source Observation Oxygen Delivery Method Blood Pressure (90/60-120/80) 150/81 H Blood Pressure Mean (mm Hg) 104 Source Monitor Position Blood Pressure Location History Since Last Visit- (Skip if this is Patient's initial visit) Have you changed medications since your No last visit? Any new allergies or adverse reactions No Had a fall/change in ADL's that may No increase risk of falls Signs or symptoms of abuse and/or No neglect since last visit Have you been in the hospital since your No last visit? Has dressing in place as prescribed Yes Has compression in place as prescribed No Has offloadiing in place as prescribed Yes Experienced any changes in pain level or No management Left Footwear Right Footwear Removable Cast Walker/Walking Boot Pain Scale: 0-10 Numeric Is Patient Pain Free? Yes WC - Nurse 1 - General Ulcer Measurement Start: 03/15/23 09:45 Freq: Status: Active Protocol: Activity Type Activity Date Activity User E-sign Co-sign Detail Recorded Client Recorded Date Recorded By Document 03/15/23 09:45 DL [id number] 03/15/23 09:54 DL Document 03/22/23 09:42 KW [id number] 03/22/23 09:54 KW Document 03/29/23 09:41 DL Desktop 03/29/23 09:47 DL Document 04/05/23 09:47 DL Desktop 04/05/23 09:55 DL 03/15/23 03/22/23 03/29/23 09:45 09:42 09:41 Wound Center Nurse 1 #1 right plantar foot -Current Size (cm) - Length 1.5 1.9 2 -Current Size (cm) - Width 1.8 1.7 1.8 -Current Size (cm) - Depth 0.4 0.2 0.2 -Total Square Cm 2.70 3.23 3.6 -Photo Taken Yes Yes Yes -Tunneling No -Undermining/Tunneling Yes -Undermining/Tunneling Starts (O'clock 11 ) -Undermining/Tunneling Ends (O'clock) 1 -Maximum Distance (cm) 0.2 -Exudate Amt Large Medium Large -Exudate Type Serosanguineous Serosanguineous Serosanguineous -Wound Margin Distinct, Distinct, Thickened & Outline Outline Rolled Under Attached Attached -Granulation Amt Large (67-100%) Small (1-33%) Large (67-100%) -Granulation Quality Red [place],Red -Necrosis Amt Small (1-33%) Small (1-33%) Small (1-33%) -Necrotic Tissue Type Adherent Slough Adherent Slough Adherent Slough -Structure Exposed N/A N/A -Texture (Kelsie-wound Skin Appearance) Callus,Scarring No Abnormality, Callus,Scarring Callus -Moisture (Kelsie-wound Skin Appearance) Maceration Assessed Maceration -Color (Kelsie-wound Skin Appearance) No Abnormality Assessed No Abnormality -Temperature (Kelsie-wound Skin No Abnormality No Abnormality No Abnormality Appearance) (Pt Warm) (Pt Warm) (Pt Warm) -Tenderness on Palpation (Kelsie-wound No No Skin Appearance) -Ulcer Cleansing Soap and Water Soap and Water Soap and Water -Foul Odor after Cleansing No No No -Anesthetic Used 5% Lidocaine 5% Lidocaine 5% Lidocaine Gel Gel Gel 04/05/23 09:47 Wound Center Nurse 1 #1 right plantar foot -Current Size (cm) - Length 1.2 -Current Size (cm) - Width 1.6 -Current Size (cm) - Depth 0.2 -Total Square Cm 1.92 -Photo Taken -Tunneling -Undermining/Tunneling -Undermining/Tunneling Starts (O'clock ) -Undermining/Tunneling Ends (O'clock) -Maximum Distance (cm) -Exudate Amt Medium -Exudate Type Serosanguineous -Wound Margin Thickened & Rolled Under -Granulation Amt Large (67-100%) -Granulation Quality Red -Necrosis Amt Small (1-33%) -Necrotic Tissue Type Adherent Slough -Structure Exposed N/A -Texture (Kelsie-wound Skin Appearance) Callus,Scarring -Moisture (Kelsie-wound Skin Appearance) Maceration -Color (Kelsie-wound Skin Appearance) No Abnormality -Temperature (Kelsie-wound Skin No Abnormality Appearance) (Pt Warm) -Tenderness on Palpation (Kelsie-wound No Skin Appearance) -Ulcer Cleansing Soap and Water -Foul Odor after Cleansing No -Anesthetic Used 5% Lidocaine Gel WC - Nurse 2 - General Ulcer CM Notes Start: 03/15/23 09:45 Freq: Status: Active Protocol: Activity Type Activity Date Activity User E-sign Co-sign Detail Recorded Client Recorded Date Recorded By Document 03/15/23 11:54 PL [id number] 03/15/23 11:56 PL Document 03/22/23 12:57 PL [id number] 03/22/23 12:59 PL Document 03/29/23 12:00 PL [id number] 03/29/23 12:02 PL 03/15/23 03/22/23 03/29/23 11:54 12:57 12:00 Wound Center Nurse 2 #1 right plantar foot -Time 10:07 10:17 10:04 -Correct Patient Yes Yes Yes -Correct Side, Site, Position Yes Yes Yes -Correct Procedure Yes Yes Yes -Procedure Performed Yes Yes Yes -Type of Procedure Debridement Debridement Debridement -Clinical Debridement Subcutaneous Subcutaneous Subcutaneous -Tissue Removed Subcutaneous Subcutaneous Subcutaneous -Post Debridement (cm) - Length 1.8 1.7 1.7 -Post Debridement (cm) - Width 1.6 1.7 1.9 -Post Debridement (cm) - Depth 0.1 0.2 0.2 -Total Square (Post) (cm) 2.88 2.89 3.23 -Area of Debridement (cm) - Length 1.8 1.7 1.7 -Area of Debridement (cm) - Width 1.6 1.7 1.9 -Total Square (Area) (cm) 2.88 2.89 3.23 -Tunneling No No No -Undermining/Tunneling No No No -Circular Undermining No No No -Wound/Ulcer Outcome Not Healed Not Healed Not Healed -Ulcer Cleansing Rinsed/ Rinsed/ Rinsed/ Irrigated with Irrigated with Irrigated with Saline Saline Saline -Foul Odor after Cleansing No No No -Bioengineered Tissue Yes Yes Yes -Type of Bioengineered Tissue Epifix Epifix Epifix -Expiration Date 11/06/22 12/08/27 12/08/27 -Product Lot Number [id number] -Percent Used 100 100 100 -Bleeding Controlled with Pressure Pressure Pressure -Treatment Response Procedure Procedure Procedure Tolerated Well Tolerated Well Tolerated Well -Debridement - Subq, 1st 20sq cm No No No -Apply Skin Sub - 1st 25 sq cm - Feet 1 1 1 -Epifix (per sq cm) 4 4 4 Pain Scale: 0-10 Numeric Is Patient Pain Free? Yes Yes Yes - Nurse 3 - General Ulcer D/C NN Start: 03/15/23 09:45 Freq: Status: Active Protocol: Activity Type Activity Date Activity User E-sign Co-sign Detail Recorded Client Recorded Date Recorded By Document 03/15/23 10:28 DL [id number] 03/15/23 10:30 DL Document 03/22/23 10:30 DL [id number] 03/22/23 10:32 DL Document 03/29/23 10:24 KW Desktop 03/29/23 10:25 KW Edit Result 03/29/23 10:24 KW (1) Desktop 03/29/23 10:34 KW (1) #1 right plantar foot - Primary Dressing Applied Optilok 6.5x10 => Aquacel Extra, => Optilok 6.5x10 - Aquacel Extra => 1 03/15/23 03/22/23 03/29/23 10:28 10:30 10:24 Wound Care Center Nurse 3 #1 right plantar foot -Ulcer Cleansing Rinsed/ Irrigated with Saline -Foul Odor after Cleansing No No -Primary Dressing Applied Aquacel Extra, Aquacel Extra, Aquacel Extra, Optilok 6.5x10 Optilok 6.5x10 Optilok 6.5x10 -Other Dressing epifix -Primary Dressing Covered/Secured with Dry Gauze & Dry Gauze & Dry Gauze & Roll Gauze, Roll Gauze, Roll Gauze, Secured with Secured with Secured with Tape Tape Tape -Other Covering padded insert -Aquacel Extra 1 1 1 -Optilok 6.5x10 1 1 1 Treatment Response Procedure Procedure Tolerated Well Tolerated Well Pain Scale: 0-10 Numeric Is Patient Pain Free? Yes Yes Yes - Visit Discharge Discharge Condition Stable Stable Stable Ambulatory Status Ambulatory Ambulatory Ambulatory Transportation Private Auto Private Auto Private Auto Medication Reconcilliation completed & No provided to patient/care provider Clinical Summary of Care Provided Yes Assessment/Plan Assessment/Plan (1) Gastrocnemius equinus of right lower extremity: CODE(S): M21.861 - Other specified acquired deformities of right lower leg (2) Non-pressure chronic ulcer of other part of right foot with fat layer exposed: CODE(S): L97.512 - Non-pressure chronic ulcer of other part of right foot with fat layer exposed (3) Acquired hallux limitus of right foot: CODE(S): M20.5X1 - Other deformities of toe(s) (acquired), right foot (4) Hallux malleus of right foot: CODE(S): M20.31 - Hallux varus (acquired), right foot (5) Hypertension: CODE(S): I10 - Essential (primary) hypertension (6) Morbid obesity with BMI of 40.0-44.9, adult: CODE(S): E66.01 - Morbid (severe) obesity due to excess calories; Z68.41 -Body mass index [BMI] 40.0-44.9, adult (7) Hyperlipidemia: CODE(S): E78.5 - Hyperlipidemia, unspecified (8) Type 2 diabetes mellitus with foot ulcer: CODE(S): E11.621 - Type 2 diabetes mellitus with foot ulcer; L97.509 - Non- pressure chronic ulcer of other part of unspecified foot with unspecified severity (9) Diabetes mellitus with diabetic polyneuropathy: CODE(S): E11.42 - Type 2 diabetes mellitus with diabetic polyneuropathy PLAN: Plan Patient seen and evaluated. Patient was ambulating CAM boot with plantar offloading padding today I have reviewed the LEAS performed 01/17/2023 demonstrating: Left foot triphasic DP and PT on Doppler; Indices left foot PT- 1.05. DP 1.03, Digit 0.91; right foot triphasic DP and PT on Doppler; Indices foot PT 1.10, DP 1.16, digit noncompressible. PVR diminished at ankle and digit on left with noncompressibledigit right foot. Impression no evidence of significant occlusive arterial disease. Reviewed diagnostic data from 01/17/2023 demonstrating WBC of 8.7 Radiographic imaging obtained 01/17/2023 demonstrating no evidence of osteomyelitis. I have reviewed this imaging and concur with the radiographic read. Updated radiograph of the right foot ordered 03/29/2023, awaiting results. I have reviewed her culture results which were obtained 01/17/2023 demonstrating:Providencia rettgeri, Staph aureus, Stap agalactaie, and Kocuria kristinae. Shewas prescribed Augmentin [address] Omar MD. 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 She did apple picking supervisor antibiotic and has completed this antibiotic course. Ulceration underwent debridement as noted in the clinical panel above. Ulcerative site demonstrates healthy granular base with surrounding hyperkeratosis and maceration. No signs of infection. Ulceration measures 1.5 cm x 1.3 cm x 0.1 cm. EpiFix #9 applied to ulcerative base and dressed with Adaptic touch, anchored with Steri-Strips. Absorbant dressing applied followed by Dry sterile dressing applied. She was instructed to change outer dressings as needed due to significant drainage. She was instructed to not get the site wet. Following debridement cultures were obtained 03/01/23 due to her continued significant drainage. She was empirically started on oral doxycycline 100 mg p.o. twice daily x14 days and oral ciprofloxacin 500 mg p.o. twice daily x14 days. She states that she picked up oral abx and started on 03/08/23. Culture results demonstrate PsA, Providencia rettgeri, corynebacterium jeikeium, Staphylococcus cohnii urealyti, and anaerobic cocci. 03/22/2023 she completed antibiotic course and due to patient leaving town antibiotic course was extended. She will finish oral abx today. Ulcerative site demonstrates reduction in size versus previous visit, there is some maceration still about ulcerative site. She was instructed to stay off feet as much as possible to continue to aid in pressure reduction to the ulcerative site. Due to slight increase in size from previous visit she will now remain nonweightbearing to the right lower extremitywith assistance of knee scooter. Rx for knee scooter was written 03/29/23. She states she did not get the knee scooter and has continued to ambulate in boot. Reminded her she is to remain nonweightbearing in the CAM boot for offloading with knee scooter assistance. Stressed importance of obtaining knee scooter today. She was instructed to continue offloading in CAM boot for the right lower extremity with plantar offloading padding for first metatarsal head. She was instructed to remain in the CAM boot at all times and not to wear flip-flops. She may remove the boot for shower purposes and sleeping. She voices understanding of this. Discussed that pressure reduction to the site is essential for her healing status. Discussed proper diabetic diet to maintain tight glycemic control. Last A1c 09/2022 was 7.0%. Discussed continued diet and exercise along with lifestyle modification/weight loss to aid in healthy lifestyle. Discussed importance of daily foot checks. Discussed adequate protein intake to aid in wound healing. She may take Jeremy supplementation to aid in wound healing. Discussed being diabetic she is never to go barefoot and should wear closed toedshoes at all times. Discussed with her socks is considered barefoot. Encouraged shoe gear to be worn at all times. She voices understanding of this. Recommend diabetic shoes with plantar offloading padding once ulceration has healed. Discussed signs and symptoms of infection. Discussed if she notices redness about the ulcerative site that moves to the top of the foot and up the foot, purulent drainage from the wound site, increasing foul odor, or if she experiences fever greater than 101 degree, nausea, vomiting, chills that these are signs of a progressing infection and she should report to the ED for IV antibiotics. She voices understanding of this today. The following work up and care recommendations were made: Dressing: EpiFix, Adaptic touch, Steri-Strips, dry sterile dressing. Change outer dressings as needed. Wash: Do not get wet Tissue growth optimization: EpiFix Offload: CAM boot with plantar offloading padding Vascular: Palpable pedal pulses bilateral. LEAS obtained and reviewed from 01/17/2023 demonstrating no significant arterial occlusive disease. She is notedto have mild arterial disease of the popliteal/SFA bilateral. On Doppler DP andPT are triphasic bilateral. Edema: No edema noted Infection: No signs of infection Pain: May take [id number]-rtsguqk Tylenol for discomfort Host factors: DM type II with peripheral polyneuropathy, hallux limitus right foot, hallux malleus right foot, morbid obesity, equinus deformity all complicated healing potential I answered all the patient's questions. To return to the wound healing center in 2 weeks or call sooner if the patient has any questions or concerns. 04/05/23 1256 <Electronically signed by Jared Gibbons DPM> Cosigner Signature (if applicable): CC: ~ Signed [facility] Work Phone: 1(494) 790-922209-21-2023 Progress note Author Jared Gibbons [facility] March 29, 2023 10:50am Note Date/Time March 29, 2023 9:40am [facility] [address] [place] [address] Progress Note - Wound Care 03/29/23 0940 MR#: [id number] Acct: [id number] Name: LUCRECIA HOU Rep #:[id number] : 1965 58 From: Jared worley DPM PCP: REX Castillo Status:REG RCR Location: History of Present Illness Date of Service: 03/29/23 Chief Complaint: Diabetic foot ulceration, right metatarsal-phalangeal joint, plantar surface History of Wound: This is a 58-year-old, morbidly-obese, diabetic female who presents with a largeulceration on the right great toe. The ulceration is located at the right firstmetatarsophalangeal joint, on the plantar surface. It has been present for approximately 4 months. According to the patient, it originated as a callus, and she ripped off the skin. She has been using Watkin's salve topically. 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 Her BMI is 41.8. Shedenies a history of smoking. She also denies a history of myocardial infarction, congestive heart failure, cerebrovascular accident, pulmonary disease,renal disease, and thyroid disease. Most recent hemoglobin A1c was 7.0 in September,. Laboratory studies obtained recently, dated January 03, 2023, are as follows: White blood count 8.7, hemoglobin 13.5, hematocrit 41.4, platelets 308,000, sodium 138, potassium 4.0, chloride 101, BUN 14, creatinine 0.65, glucose 140, calcium 9.3, bilirubin 0.40, AST 19, ALT 24, alkaline phosphatase 107, protein 7.8, albumin 3.3. Subjective Subjective This is a 58-year-old diabetic female who presents to the wound care center today for follow-up of a plantar first metatarsal head ulceration of the right foot. Graft in place the wound site. She is changing outer dressings daily. Mack continued to offload in the CAM boot with plantar offloading padding. She is continuing to take antibiotics. States that she has been on her feet more due to working at the [employer] and now [facility] [employer] [employer]. She deniesany constitutional symptoms. She denies further complaints. Objective Data Objective Data Vital Signs: Vital Signs Temp Pulse Resp BP O2 Del Method 96.6 F L 74 18 146/67 H Room Air 03/22/23 09:42 03/22/23 09:42 03/22/23 09:42 03/22/23 09:42 03/22/23 09:42 Oxygen Delivery Method Room Air Weight: 110.677 kg Body Mass Index (BMI) 41.8 Physical Exam Const alert, oriented x3, no apparent distress and well nourished General Appearance: cooperative HEENT normocephalic Eyes General Eye: normal appearance of both eyes Neck General: normal visual inspection Lymph Lymphatic: no lymphadenopathy noted and no lymphedema noted Resp normal respiratory effort Cardio regular rate and regular rhythm Extremity normal capillary refill, no joint enlargement, no calf tenderness and no pedal edema Extremity Narrative: DP and PT pulses palpable bilateral. Capillary fill time to the digits less than 5 seconds bilateral. Hair growth diminished to the digits bilateral. Dermatological: Skin appears well-hydrated with normal turgor. Hyperkeratotic tissue Sub first metatarsal head of the left foot with no evidence of open wound. There is a large ulceration noted to the plantar aspect of the first metatarsal head of the right foot with surrounding hyperkeratotic tissue and maceration. Wound bed demonstrates granular tissue. No purulent drainage, no malodor, no palpable fluctuance/bogginess, no visible abscess formation, no lymphangitic streaking. Ulceration does not probe to bone. Musculoskeletal: Muscle strength 5 of 5 age-appropriate. She does demonstrate decreased range of motion of the first metatarsophalangeal joint bilateral without pain or crepitus. Decreased range of motion of the ankle joint in dorsiflexion with the knee extended without pain or crepitus bilateral. Hammertoe deformity of the right hallux. No pain to palpation about the ulcerative site plantar first metatarsal head right foot. Skin no rashes or lesions noted, skin turgor normal and no jaundice Neuro moves all extremities Neuro Narrative: Diminished protective sensation bilaterally secondary to diabetic peripheral polyneuropathy Debridement Note Debridement Note Wound debrided: Sub first metatarsal head Laterality: Right Wound Grade/Stage: Nichols stage I Type of Debridement: Excisional debridement Anesthesia Used: 5% Lidocaine Gel Depth: Down to and including healthy tissue and in the subcutaneous layer Percentage of wound debrided: 100 Instrument Used: #15 blade Tissue Removed: Fibrous, devitalized subcutaneous, biofilm, slough Severity: Fat Layer Exposed Amount of bleeding with debridement: Mild Bleeding Controlled with: Compression and gauze Patient tolerated procedure: Patient tolerated procedure well Post-Debridement Measurements and Additional Note: Post-Debridement Measurements/Treatment - Nurse 1 - General Ulcer Assessment Start: 03/15/23 09:45 Freq: Status: Active Protocol: JAXSON Activity Type Activity Date Activity User E-sign Co-sign Detail Recorded Client Recorded Date Recorded By Document 03/15/23 09:45 DL [id number] 03/15/23 09:54 DL Document 03/22/23 09:42 KW [id number] 03/22/23 09:54 KW 03/15/23 03/22/23 09:45 09:42 - Today's Visit Information Type of service Follow-up Visit Follow-up Visit (Physician/AUTOMOTIVE PROFESSIONAL (Physician/AUTOMOTIVE PROFESSIONAL ) ) Arrival Mode Ambulatory Ambulatory Transfer Assistance None Patient Identification Verified (Name & Yes Yes ) Patient Requires Transmission-Based No Precautions Height and Weight Body Mass Index (BMI) 41.8 41.8 BMI Classification Obese Obese Vital Signs Temperature (97.8 F-99.1 F) 96.9 F L 96.6 F L Temperature Source Temporal Temporal Pulse Rate (60-100) 74 74 Pulse Location Monitor Monitor Respiratory Rate (12-18) 20 H 18 Respiratory rate source Observation Observation Oxygen Delivery Method Room Air Blood Pressure (90/60-120/80) 157/78 H 146/67 H Blood Pressure Mean (mm Hg) 104 93 Source Monitor Monitor Position Sitting Blood Pressure Location Left Arm History Since Last Visit- (Skip if this is Patient's initial visit) Have you changed medications since your No No last visit? Any new allergies or adverse reactions No No Had a fall/change in ADL's that may No No increase risk of falls Signs or symptoms of abuse and/or No No neglect since last visit Have you been in the hospital since your No No last visit? Has dressing in place as prescribed Yes Yes Has compression in place as prescribed N/A Yes Has offloadiing in place as prescribed Yes Yes Experienced any changes in pain level or No No management Left Footwear Regular Shoe Right Footwear Removable Cast Removable Cast Walker/Walking Walker/Walking Boot Boot Pain Scale: 0-10 Numeric Is Patient Pain Free? Yes Yes WC - Nurse 1 - General Ulcer Measurement Start: 03/15/23 09:45 Freq: Status: Active Protocol: Activity Type Activity Date Activity User E-sign Co-sign Detail Recorded Client Recorded Date Recorded By Document 03/15/23 09:45 DL [id number] 03/15/23 09:54 DL Document 03/22/23 09:42 KW [id number] 03/22/23 09:54 KW 03/15/23 03/22/23 09:45 09:42 Wound Center Nurse 1 #1 right plantar foot -Current Size (cm) - Length 1.5 1.9 -Current Size (cm) - Width 1.8 1.7 -Current Size (cm) - Depth 0.4 0.2 -Total Square Cm 2.70 3.23 -Photo Taken Yes Yes -Tunneling No -Undermining/Tunneling Yes -Undermining/Tunneling Starts (O'clock 11 ) -Undermining/Tunneling Ends (O'clock) 1 -Maximum Distance (cm) 0.2 -Exudate Amt Large Medium -Exudate Type Serosanguineous Serosanguineous -Wound Margin Distinct, Distinct, Outline Outline Attached Attached -Granulation Amt Large (67-100%) Small (1-33%) -Granulation Quality Red [place] -Necrosis Amt Small (1-33%) Small (1-33%) -Necrotic Tissue Type Adherent Slough Adherent Slough -Structure Exposed N/A -Texture (Kelsie-wound Skin Appearance) Callus,Scarring No Abnormality, Callus -Moisture (Kelsie-wound Skin Appearance) Maceration Assessed -Color (Kelsie-wound Skin Appearance) No Abnormality Assessed -Temperature (Kelsie-wound Skin No Abnormality No Abnormality Appearance) (Pt Warm) (Pt Warm) -Tenderness on Palpation (Kelsie-wound No Skin Appearance) -Ulcer Cleansing Soap and Water Soap and Water -Foul Odor after Cleansing No No -Anesthetic Used 5% Lidocaine 5% Lidocaine Gel Gel - Nurse 2 - General Ulcer CM Notes Start: 03/15/23 09:45 Freq: Status: Active Protocol: Activity Type Activity Date Activity User E-sign Co-sign Detail Recorded Client Recorded Date Recorded By Document 03/15/23 11:54 PL [id number] 03/15/23 11:56 PL Document 03/22/23 12:57 PL [id number] 03/22/23 12:59 PL 03/15/23 03/22/23 11:54 12:57 Wound Center Nurse 2 #1 right plantar foot -Time 10:07 10:17 -Correct Patient Yes Yes -Correct Side, Site, Position Yes Yes -Correct Procedure Yes Yes -Procedure Performed Yes Yes -Type of Procedure Debridement Debridement -Clinical Debridement Subcutaneous Subcutaneous -Tissue Removed Subcutaneous Subcutaneous -Post Debridement (cm) - Length 1.8 1.7 -Post Debridement (cm) - Width 1.6 1.7 -Post Debridement (cm) - Depth 0.1 0.2 -Total Square (Post) (cm) 2.88 2.89 -Area of Debridement (cm) - Length 1.8 1.7 -Area of Debridement (cm) - Width 1.6 1.7 -Total Square (Area) (cm) 2.88 2.89 -Tunneling No No -Undermining/Tunneling No No -Circular Undermining No No -Wound/Ulcer Outcome Not Healed Not Healed -Ulcer Cleansing Rinsed/ Rinsed/ Irrigated with Irrigated with Saline Saline -Foul Odor after Cleansing No No -Bioengineered Tissue Yes Yes -Type of Bioengineered Tissue Epifix Epifix -Expiration Date 11/06/22 12/08/27 -Product Lot Number [id number] -Percent Used 100 100 -Bleeding Controlled with Pressure Pressure -Treatment Response Procedure Procedure Tolerated Well Tolerated Well -Debridement - Subq, 1st 20sq cm No No -Apply Skin Sub - 1st 25 sq cm - Feet 1 1 -Epifix (per sq cm) 4 4 Pain Scale: 0-10 Numeric Is Patient Pain Free? Yes Yes WC - Nurse 3 - General Ulcer D/C NN Start: 03/15/23 09:45 Freq: Status: Active Protocol: Activity Type Activity Date Activity User E-sign Co-sign Detail Recorded Client Recorded Date Recorded By Document 03/15/23 10:28 DL [id number] 03/15/23 10:30 DL Document 03/22/23 10:30 DL [id number] 03/22/23 10:32 DL 03/15/23 03/22/23 10:28 10:30 Wound Care Center Nurse 3 #1 right plantar foot -Ulcer Cleansing Rinsed/ Irrigated with Saline -Foul Odor after Cleansing No No -Primary Dressing Applied Aquacel Extra, Aquacel Extra, Optilok 6.5x10 Optilok 6.5x10 -Other Dressing epifix -Primary Dressing Covered/Secured with Dry Gauze & Dry Gauze & Roll Gauze, Roll Gauze, Secured with Secured with Tape Tape -Other Covering padded insert -Aquacel Extra 1 1 -Optilok 6.5x10 1 1 Treatment Response Procedure Procedure Tolerated Well Tolerated Well Pain Scale: 0-10 Numeric Is Patient Pain Free? Yes Yes WC - Visit Discharge Discharge Condition Stable Stable Ambulatory Status Ambulatory Ambulatory Transportation Private Auto Private Auto Assessment/Plan Assessment/Plan (1) Gastrocnemius equinus of right lower extremity: CODE(S): M21.861 - Other specified acquired deformities of right lower leg (2) Non-pressure chronic ulcer of other part of right foot with fat layer exposed: CODE(S): L97.512 - Non-pressure chronic ulcer of other part of right foot with fat layer exposed (3) Acquired hallux limitus of right foot: CODE(S): M20.5X1 - Other deformities of toe(s) (acquired), right foot (4) Hallux malleus of right foot: CODE(S): M20.31 - Hallux varus (acquired), right foot (5) Hypertension: CODE(S): I10 - Essential (primary) hypertension (6) Morbid obesity with BMI of 40.0-44.9, adult: CODE(S): E66.01 - Morbid (severe) obesity due to excess calories; Z68.41 -Body mass index [BMI] 40.0-44.9, adult (7) Hyperlipidemia: CODE(S): E78.5 - Hyperlipidemia, unspecified (8) Type 2 diabetes mellitus with foot ulcer: CODE(S): E11.621 - Type 2 diabetes mellitus with foot ulcer; L97.509 - Non- pressure chronic ulcer of other part of unspecified foot with unspecified severity (9) Diabetes mellitus with diabetic polyneuropathy: CODE(S): E11.42 - Type 2 diabetes mellitus with diabetic polyneuropathy PLAN: Plan Patient seen and evaluated. Patient was ambulating CAM boot with plantar offloading padding today I have reviewed the LEAS performed 01/17/2023 demonstrating: Left foot triphasic DP and PT on Doppler; Indices left foot PT- 1.05. DP 1.03, Digit 0.91; right foot triphasic DP and PT on Doppler; Indices foot PT 1.10, DP 1.16, digit noncompressible. PVR diminished at ankle and digit on left with noncompressible digit right foot. Impression no evidence of significant occlusive arterial disease. Reviewed diagnostic data from 01/17/2023 demonstrating WBC of 8.7 Radiographic imaging obtained 01/17/2023 demonstrating no evidence of osteomyelitis. I have reviewed this imaging and concur with the radiographic read. Updated radiograph of the right foot ordered 03/29/2023, awaiting results. I have reviewed her culture results which were obtained 01/17/2023 demonstrating: Providencia rettgeri, Staph aureus, Stap agalactaie, and Kocuria kristinae. She was prescribed Augmentin [address] Omar MD. 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 She did apple picking supervisor antibiotic and has completed this antibiotic course. Ulceration underwent debridement as noted in the clinical panel above. Ulcerative site demonstrates healthy granular base with surrounding hyperkeratosis and maceration. No signs of infection. Ulceration measures 1.7 cm x 1.9 cm x 0.1 cm. EpiFix #8 applied to ulcerative base and dressed with Adaptic touch, anchored with Steri-Strips. Absorbant dressing applied followed by Dry sterile dressing applied. She was instructed to change outer dressings as needed due to significant drainage. She was instructed to not get the site wet. Following debridement cultures were obtained 03/01/23 due to her continued significant drainage. She was empirically started on oral doxycycline 100 mg p.o. twice daily x14 days and oral ciprofloxacin 500 mg p.o. twice daily x14 days. She states that she picked up oral abx and started on 03/08/23. Culture results demonstrate PsA, Providencia rettgeri, corynebacterium jeikeium, Staphylococcus cohnii urealyti, and anaerobic cocci. 03/22/2023 she completed antibiotic course and due to patient leaving town antibiotic course was extended. Ulcerative site demonstrates no reduction in size versus previous visit, there is some maceration still about ulcerative site. She was instructed to stay off feet as much as possible to continue to aid in pressure reduction to the ulcerative site. Due to slight increase in size from previous visit she will now remain nonweightbearing to the right lower extremity with assistance of knee scooter. Rx for knee scooter was written today. Reminded her she is to remain nonweightbearing in the CAM boot for offloading with knee scooter assistance. She was instructed to continue offloading in CAM boot for the right lower extremity with plantar offloading padding for first metatarsal head. She was instructed to remain in the CAM boot at all times and not to wear flip-flops. She may remove the boot for shower purposes and sleeping. She voices understanding of this. Discussed that pressure reduction to the site is essential for her healing status. Discussed proper diabetic diet to maintain tight glycemic control. Last A1c 09/2022 was 7.0%. Discussed continued diet and exercise along with lifestyle modification/weight loss to aid in healthy lifestyle. Discussed importance of daily foot checks. Discussed adequate protein intake to aid in wound healing. She may take Jeremy supplementation to aid in wound healing. Discussed being diabetic she is never to go barefoot and should wear closed toed shoes at all times. Discussed with her socks is considered barefoot. Encouraged shoe gear to be worn at all times. She voices understanding of this. Recommend diabetic shoes with plantar offloading padding once ulceration has healed. Discussed signs and symptoms of infection. Discussed if she notices redness about the ulcerative site that moves to the top of the foot and up the foot, purulent drainage from the wound site, increasing foul odor, or if she experiences fever greater than 101 degree, nausea, vomiting, chills that these are signs of a progressing infection and she should report to the ED for IV antibiotics. She voices understanding of this today. The following work up and care recommendations were made: Dressing: EpiFix, Adaptic touch, Steri-Strips, dry sterile dressing. Change outer dressings as needed. Wash: Do not get wet Tissue growth optimization: EpiFix Offload: CAM boot with plantar offloading padding Vascular: Palpable pedal pulses bilateral. LEAS obtained and reviewed from 01/17/2023 demonstrating no significant arterial occlusive disease. She is noted to have mild arterial disease of the popliteal/SFA bilateral. On Doppler DP and PT are triphasic bilateral. Edema: No edema noted Infection: No signs of infection Pain: May take zubr-ccu-xfiqsiy Tylenol for discomfort Host factors: DM type II with peripheral polyneuropathy, hallux limitus right foot, hallux malleus right foot, morbid obesity, equinus deformity all complicated healing potential I answered all the patient's questions. To return to the wound healing center in 1 week or call sooner if the patient has any questions or concerns. 03/29/23 1050 <Electronically signed by Jared Gibbons DPM> Cosigner Signature (if applicable): CC: ~ Signed [facility] Work Phone: [phone]) 599-496209-14-2023 Progress note Author Jared Gibbons [facility] March 22, 2023 12:28pm Note Date/Time March 22, 2023 10:02am [facility] [address] [place] [address] Progress Note - Wound Care 03/22/23 1002 MR#: [id number] Acct: [id number] Name: LUCRECIA HOU Rep #:[id number] : 1965 58 From: Jared worley DPM PCP: REX Castillo Status:REG RCR Location: History of Present Illness Date of Service: 03/22/23 Chief Complaint: Diabetic foot ulceration, right metatarsal-phalangeal joint, plantar surface History of Wound: This is a 58-year-old, morbidly-obese, diabetic female who presents with a largeulceration on the right great toe. The ulceration is located at the right firstmetatarsophalangeal joint, on the plantar surface. It has been present for approximately 4 months. According to the patient, it originated as a callus, and she ripped off the skin. She has been using Watkin's salve topically. 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 Her BMI is 41.8. Shedenies a history of smoking. She also denies a history of myocardial infarction, congestive heart failure, cerebrovascular accident, pulmonary disease,renal disease, and thyroid disease. Most recent hemoglobin A1c was 7.0 in September,. Laboratory studies obtained recently, dated January 03, 2023, are as follows: White blood count 8.7, hemoglobin 13.5, hematocrit 41.4, platelets 308,000, sodium 138, potassium 4.0, chloride 101, BUN 14, creatinine 0.65, glucose 140, calcium 9.3, bilirubin 0.40, AST 19, ALT 24, alkaline phosphatase 107, protein 7.8, albumin 3.3. Subjective Subjective This is a 58-year-old diabetic female who presents to the wound care center today for follow-up of a plantar first metatarsal head ulceration of the right foot. Graft in place the wound site. She is changing outer dressings daily. Scarletthas continued to offload in the CAM boot with plantar offloading padding. He has completed course of antibiotics. She denies any constitutional symptoms. She denies further complaints. Objective Data Objective Data Vital Signs: Vital Signs Temp Pulse Resp BP O2 Del Method 96.6 F L 74 18 146/67 H Room Air 03/22/23 09:42 03/22/23 09:42 03/22/23 09:42 03/22/23 09:42 03/22/23 09:42 Oxygen Delivery Method Room Air Weight: 110.677 kg Body Mass Index (BMI) 41.8 Physical Exam Const alert, oriented x3, no apparent distress and well nourished General Appearance: cooperative HEENT normocephalic Eyes General Eye: normal appearance of both eyes Neck General: normal visual inspection Lymph Lymphatic: no lymphadenopathy noted and no lymphedema noted Resp normal respiratory effort Cardio regular rate and regular rhythm Extremity normal capillary refill, no joint enlargement, no calf tenderness and no pedal edema Extremity Narrative: DP and PT pulses palpable bilateral. Capillary fill time to the digits less than 5 seconds bilateral. Hair growth diminished to the digits bilateral. Dermatological: Skin appears well-hydrated with normal turgor. Hyperkeratotic tissue Sub first metatarsal head of the left foot with no evidence of open wound. There is a large ulceration noted to the plantar aspect of the first metatarsal head of the right foot with surrounding hyperkeratotic tissue and maceration. Wound bed demonstrates granular tissue. No purulent drainage, no malodor, no palpable fluctuance/bogginess, no visible abscess formation, no lymphangitic streaking. Ulceration does not probe to bone. Musculoskeletal: Muscle strength 5 of 5 age-appropriate. She does demonstrate decreased range of motion of the first metatarsophalangeal joint bilateral without pain or crepitus. Decreased range of motion of the ankle joint in dorsiflexion with the knee extended without pain or crepitus bilateral. Hammertoe deformity of the right hallux. No pain to palpation about the ulcerative site plantar first metatarsal head right foot. Skin no rashes or lesions noted, skin turgor normal and no jaundice Neuro moves all extremities Neuro Narrative: Diminished protective sensation bilaterally secondary to diabetic peripheral polyneuropathy Debridement Note Debridement Note Wound debrided: Sub first metatarsal head Laterality: Right Wound Grade/Stage: Nichols stage I Type of Debridement: Excisional debridement Anesthesia Used: 5% Lidocaine Gel Depth: Down to and including healthy tissue and in the subcutaneous layer Percentage of wound debrided: 100 Instrument Used: 5mm curette Tissue Removed: Fibrous, devitalized subcutaneous, biofilm, slough Severity: Fat Layer Exposed Amount of bleeding with debridement: Mild Bleeding Controlled with: Compression and gauze Patient tolerated procedure: Patient tolerated procedure well Post-Debridement Measurements and Additional Note: Post-Debridement Measurements/Treatment - Nurse 1 - General Ulcer Assessment Start: 03/15/23 09:45 Freq: Status: Active Protocol: JAXSON Activity Type Activity Date Activity User E-sign Co-sign Detail Recorded Client Recorded Date Recorded By Document 03/15/23 09:45 DL [id number] 03/15/23 09:54 DL Document 03/22/23 09:42 KW [id number] 03/22/23 09:54 KW 03/15/23 03/22/23 09:45 09:42 - Today's Visit Information Type of service Follow-up Visit Follow-up Visit (Physician/AUTOMOTIVE PROFESSIONAL (Physician/AUTOMOTIVE PROFESSIONAL ) ) Arrival Mode Ambulatory Ambulatory Transfer Assistance None Patient Identification Verified (Name & Yes Yes ) Patient Requires Transmission-Based No Precautions Height and Weight Body Mass Index (BMI) 41.8 41.8 BMI Classification Obese Obese Vital Signs Temperature (97.8 F-99.1 F) 96.9 F L 96.6 F L Temperature Source Temporal Temporal Pulse Rate (60-100) 74 74 Pulse Location Monitor Monitor Respiratory Rate (12-18) 20 H 18 Respiratory rate source Observation Observation Oxygen Delivery Method Room Air Blood Pressure (90/60-120/80) 157/78 H 146/67 H Blood Pressure Mean (mm Hg) 104 93 Source Monitor Monitor Position Sitting Blood Pressure Location Left Arm History Since Last Visit- (Skip if this is Patient's initial visit) Have you changed medications since your No No last visit? Any new allergies or adverse reactions No No Had a fall/change in ADL's that may No No increase risk of falls Signs or symptoms of abuse and/or No No neglect since last visit Have you been in the hospital since your No No last visit? Has dressing in place as prescribed Yes Yes Has compression in place as prescribed N/A Yes Has offloadiing in place as prescribed Yes Yes Experienced any changes in pain level or No No management Left Footwear Regular Shoe Right Footwear Removable Cast Removable Cast Walker/Walking Walker/Walking Boot Boot Pain Scale: 0-10 Numeric Is Patient Pain Free? Yes Yes WC - Nurse 1 - General Ulcer Measurement Start: 03/15/23 09:45 Freq: Status: Active Protocol: Activity Type Activity Date Activity User E-sign Co-sign Detail Recorded Client Recorded Date Recorded By Document 03/15/23 09:45 DL [id number] 03/15/23 09:54 DL Document 03/22/23 09:42 KW [id number] 03/22/23 09:54 KW 03/15/23 03/22/23 09:45 09:42 Wound Center Nurse 1 #1 right plantar foot -Current Size (cm) - Length 1.5 1.9 -Current Size (cm) - Width 1.8 1.7 -Current Size (cm) - Depth 0.4 0.2 -Total Square Cm 2.70 3.23 -Photo Taken Yes Yes -Tunneling No -Undermining/Tunneling Yes -Undermining/Tunneling Starts (O'clock 11 ) -Undermining/Tunneling Ends (O'clock) 1 -Maximum Distance (cm) 0.2 -Exudate Amt Large Medium -Exudate Type Serosanguineous Serosanguineous -Wound Margin Distinct, Distinct, Outline Outline Attached Attached -Granulation Amt Large (67-100%) Small (1-33%) -Granulation Quality Red [place] -Necrosis Amt Small (1-33%) Small (1-33%) -Necrotic Tissue Type Adherent Slough Adherent Slough -Structure Exposed N/A -Texture (Kelsie-wound Skin Appearance) Callus,Scarring No Abnormality, Callus -Moisture (Kelsie-wound Skin Appearance) Maceration Assessed -Color (Kelsie-wound Skin Appearance) No Abnormality Assessed -Temperature (Kelsie-wound Skin No Abnormality No Abnormality Appearance) (Pt Warm) (Pt Warm) -Tenderness on Palpation (Kelsie-wound No Skin Appearance) -Ulcer Cleansing Soap and Water Soap and Water -Foul Odor after Cleansing No No -Anesthetic Used 5% Lidocaine 5% Lidocaine Gel Gel WC - Nurse 2 - General Ulcer CM Notes Start: 03/15/23 09:45 Freq: Status: Active Protocol: Activity Type Activity Date Activity User E-sign Co-sign Detail Recorded Client Recorded Date Recorded By Document 03/15/23 11:54 PL [id number] 03/15/23 11:56 PL 03/15/23 11:54 Wound Center Nurse 2 -Time 10:07 -Correct Patient Yes -Correct Side, Site, Position Yes -Correct Procedure Yes -Procedure Performed Yes -Type of Procedure Debridement -Clinical Debridement Subcutaneous -Tissue Removed Subcutaneous -Post Debridement (cm) - Length 1.8 -Post Debridement (cm) - Width 1.6 -Post Debridement (cm) - Depth 0.1 -Total Square (Post) (cm) 2.88 -Area of Debridement (cm) - Length 1.8 -Area of Debridement (cm) - Width 1.6 -Total Square (Area) (cm) 2.88 -Tunneling No -Undermining/Tunneling No -Circular Undermining No -Wound/Ulcer Outcome Not Healed -Ulcer Cleansing Rinsed/ Irrigated with Saline -Foul Odor after Cleansing No -Bioengineered Tissue Yes -Type of Bioengineered Tissue Epifix -Expiration Date 11/06/22 -Product Lot Number [id number] -Percent Used 100 -Bleeding Controlled with Pressure -Treatment Response Procedure Tolerated Well -Debridement - Subq, 1st 20sq cm No -Apply Skin Sub - 1st 25 sq cm - Feet 1 -Epifix (per sq cm) 4 Pain Scale: 0-10 Numeric Is Patient Pain Free? Yes WC - Nurse 3 - General Ulcer D/C NN Start: 03/15/23 09:45 Freq: Status: Active Protocol: Activity Type Activity Date Activity User E-sign Co-sign Detail Recorded Client Recorded Date Recorded By Document 03/15/23 10:28 DL [id number] 03/15/23 10:30 DL 03/15/23 10:28 Wound Care Center Nurse 3 #1 right plantar foot -Foul Odor after Cleansing No -Primary Dressing Applied Aquacel Extra, Optilok 6.5x10 -Other Dressing epifix -Primary Dressing Covered/Secured with Dry Gauze & Roll Gauze, Secured with Tape -Other Covering padded insert -Aquacel Extra 1 -Optilok 6.5x10 1 Treatment Response Procedure Tolerated Well Pain Scale: 0-10 Numeric Is Patient Pain Free? Yes WC - Visit Discharge Discharge Condition Stable Ambulatory Status Ambulatory Transportation Private Auto Assessment/Plan Assessment/Plan (1) Gastrocnemius equinus of right lower extremity: CODE(S): M21.861 - Other specified acquired deformities of right lower leg (2) Non-pressure chronic ulcer of other part of right foot with fat layer exposed: CODE(S): L97.512 - Non-pressure chronic ulcer of other part of right foot with fat layer exposed (3) Acquired hallux limitus of right foot: CODE(S): M20.5X1 - Other deformities of toe(s) (acquired), right foot (4) Hallux malleus of right foot: CODE(S): M20.31 - Hallux varus (acquired), right foot (5) Hypertension: CODE(S): I10 - Essential (primary) hypertension (6) Morbid obesity with BMI of 40.0-44.9, adult: CODE(S): E66.01 - Morbid (severe) obesity due to excess calories; Z68.41 -Body mass index [BMI] 40.0-44.9, adult (7) Hyperlipidemia: CODE(S): E78.5 - Hyperlipidemia, unspecified (8) Type 2 diabetes mellitus with foot ulcer: CODE(S): E11.621 - Type 2 diabetes mellitus with foot ulcer; L97.509 - Non- pressure chronic ulcer of other part of unspecified foot with unspecified severity (9) Diabetes mellitus with diabetic polyneuropathy: CODE(S): E11.42 - Type 2 diabetes mellitus with diabetic polyneuropathy PLAN: Plan Patient seen and evaluated. Patient was ambulating CAM boot with plantar offloading padding today I have reviewed the LEAS performed 01/17/2023 demonstrating: Left foot triphasic DP and PT on Doppler; Indices left foot PT- 1.05. DP 1.03, Digit 0.91; right foot triphasic DP and PT on Doppler; Indices foot PT 1.10, DP 1.16, digit noncompressible. PVR diminished at ankle and digit on left with noncompressible digit right foot. Impression no evidence of significant occlusive arterial disease. Reviewed diagnostic data from 01/17/2023 demonstrating WBC of 8.7 Radiographic imaging obtained 01/17/2023 demonstrating no evidence of osteomyelitis. I have reviewed this imaging and concur with the radiographic read. I have reviewed her culture results which were obtained 01/17/2023 demonstrating: Providencia rettgeri, Staph aureus, Stap agalactaie, and Kocuria kristinae. She was prescribed Augmentin [address] Omar MD. 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 She did apple picking supervisor antibiotic and has completed antibiotic course. Ulceration underwent debridement as noted in the clinical panel above. Ulcerative site demonstrates healthy granular base with surrounding hyperkeratosis and maceration. No signs of infection. Ulceration measures 1.7 cm x 1.7 cm x 0.1 cm. EpiFix #7 applied to ulcerative base and dressed with Adaptic touch, anchored with Steri-Strips. Absorbant dressing applied followed by Dry sterile dressing applied. She was instructed to change outer dressings as needed due to significant drainage. She was instructed to not get the site wet. Following debridement cultures were obtained 03/01/23 due to her continued significant drainage. She was empirically started on oral doxycycline 100 mg p.o. twice daily x14 days and oral ciprofloxacin 500 mg p.o. twice daily x14 days. She states that she picked up oral abx and started on 03/08/23. Culture results demonstrate PsA, Providencia rettgeri, corynebacterium jeikeium, Staphylococcus cohnii urealyti, and anaerobic cocci. Today 03/22/2023 she completed antibiotic course due to patient leaving town will extend antibiotic course at this time. Ulcerative site demonstrates slight reduction in size versus previous visit, there is some maceration still about ulcerative site. She was instructed to stay off feet as much as possible to continue to aid in pressure reduction to the ulcerative site. Ulceration demonstrates reduction in size with current offloading versus previous visit. Reminded her she is to only ambulate in the CAM boot for offloading. New offloading padding applied. She was instructed to continue offloading in CAM boot for the right lower extremity with plantar offloading padding for first metatarsal head. She was instructed to weight-bear in the CAM boot at all times and not to wear flip-flops. She may remove the boot for shower purposes and sleeping. She voices understanding of this. Discussed that pressure reduction to the site is essential for her healing status. Discussed proper diabetic diet to maintain tight glycemic control. Last A1c 09/2022 was 7.0%. Discussed continued diet and exercise along with lifestyle modification/weight loss to aid in healthy lifestyle. Discussed importance of daily foot checks. Discussed adequate protein intake to aid in wound healing. She may take Jeremy supplementation to aid in wound healing. Discussed being diabetic she is never to go barefoot and should wear closed toed shoes at all times. Discussed with her socks is considered barefoot. Encouraged shoe gear to be worn at all times. She voices understanding of this. Recommend diabetic shoes with plantar offloading padding once ulceration has healed. Discussed signs and symptoms of infection. Discussed if she notices redness about the ulcerative site that moves to the top of the foot and up the foot, purulent drainage from the wound site, increasing foul odor, or if she experiences fever greater than 101 degree, nausea, vomiting, chills that these are signs of a progressing infection and she should report to the ED for IV antibiotics. She voices understanding of this today. The following work up and care recommendations were made: Dressing: EpiFix, Adaptic touch, Steri-Strips, dry sterile dressing. Change outer dressings as needed. Wash: Do not get wet Tissue growth optimization: EpiFix Offload: CAM boot with plantar offloading padding Vascular: Palpable pedal pulses bilateral. LEAS obtained and reviewed from 01/17/2023 demonstrating no significant arterial occlusive disease. She is noted to have mild arterial disease of the popliteal/SFA bilateral. On Doppler DP and PT are triphasic bilateral. Edema: No edema noted Infection: No signs of infection Pain: May take [id number] Tylenol for discomfort Host factors: DM type II with peripheral polyneuropathy, hallux limitus right foot, hallux malleus right foot, morbid obesity, equinus deformity all complicated healing potential I answered all the patient's questions. To return to the wound healing center in 1 week or call sooner if the patient has any questions or concerns. 03/22/23 1228 <Electronically signed by Jared Gibbons DPM> Cosigner Signature (if applicable): CC: ~ Signed [facility] Work Phone: [phone] 187-631509-07-2023 Progress note Author Jared Gibbons [facility] March 15, 2023 10:36am Note Date/Time March 15, 2023 9:52am [facility] [address] [place] [address] Progress Note - Wound Care 03/15/23 0948 MR#: [id number] Acct: [id number] Name: LUCRECIA HOU Rep #:[id number] : 1965 58 From: Jared worley DPM PCP: REX Castillo Status:REG RCR Location: History of Present Illness Date of Service: 03/15/23 Chief Complaint: Diabetic foot ulceration, right metatarsal-phalangeal joint, plantar surface History of Wound: This is a 58-year-old, morbidly-obese, diabetic female who presents with a largeulceration on the right great toe. The ulceration is located at the right firstmetatarsophalangeal joint, on the plantar surface. It has been present for approximately 4 months. According to the patient, it originated as a callus, and she ripped off the skin. She has been using Watkin's salve topically. 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 Her BMI is 41.8. Shedenies a history of smoking. She also denies a history of myocardial infarction, congestive heart failure, cerebrovascular accident, pulmonary disease,renal disease, and thyroid disease. Most recent hemoglobin A1c was 7.0 in September,. Laboratory studies obtained recently, dated January 03, 2023, are as follows: White blood count 8.7, hemoglobin 13.5, hematocrit 41.4, platelets 308,000, sodium 138, potassium 4.0, chloride 101, BUN 14, creatinine 0.65, glucose 140, calcium 9.3, bilirubin 0.40, AST 19, ALT 24, alkaline phosphatase 107, protein 7.8, albumin 3.3. Subjective Subjective This is a 58-year-old diabetic female who presents to the wound care center today for follow-up of a plantar first metatarsal head ulceration of the right foot. Graft in place the wound site. She is changing outer dressings daily. Shehas continued to offload in the CAM boot with plantar offloading padding. States she did apple picking supervisor antibiotic and is continuing to take this. She denies any constitutional symptoms. She denies further complaints. Objective Data Objective Data Vital Signs: Vital Signs Temp Pulse Resp BP 97.2 F L 76 18 162/61 H 03/09/23 00:33 03/09/23 00:33 03/09/23 00:33 03/09/23 00:33 Weight: 110.677 kg Body Mass Index (BMI) 41.8 Physical Exam Const alert, oriented x3, no apparent distress and well nourished General Appearance: cooperative HEENT normocephalic Eyes General Eye: normal appearance of both eyes Neck General: normal visual inspection Lymph Lymphatic: no lymphadenopathy noted and no lymphedema noted Resp normal respiratory effort Cardio regular rate and regular rhythm Extremity normal capillary refill, no joint enlargement, no calf tenderness and no pedal edema Extremity Narrative: DP and PT pulses palpable bilateral. Capillary fill time to the digits less than 5 seconds bilateral. Hair growth diminished to the digits bilateral. Dermatological: Skin appears well-hydrated with normal turgor. Hyperkeratotic tissue Sub first metatarsal head of the left foot with no evidence of open wound. There is a large ulceration noted to the plantar aspect of the first metatarsal head of the right foot with surrounding hyperkeratotic tissue and maceration. Wound bed demonstrates granular tissue. No purulent drainage, no malodor, no palpable fluctuance/bogginess, no visible abscess formation, no lymphangitic streaking. Ulceration does not probe to bone. Musculoskeletal: Muscle strength 5 of 5 age-appropriate. She does demonstrate decreased range of motion of the first metatarsophalangeal joint bilateral without pain or crepitus. Decreased range of motion of the ankle joint in dorsiflexion with the knee extended without pain or crepitus bilateral. Hammertoe deformity of the right hallux. No pain to palpation about the ulcerative site plantar first metatarsal head right foot. Skin no rashes or lesions noted, skin turgor normal and no jaundice Neuro moves all extremities Neuro Narrative: Diminished protective sensation bilaterally secondary to diabetic peripheral polyneuropathy Debridement Note Debridement Note Wound debrided: Sub first metatarsal head Laterality: Right Wound Grade/Stage: Nichols stage I Type of Debridement: Excisional debridement Anesthesia Used: 5% Lidocaine Gel Depth: Down to and including healthy tissue and in the subcutaneous layer Percentage of wound debrided: 100 Instrument Used: 5mm curette Tissue Removed: Fibrous, devitalized subcutaneous, biofilm, slough Severity: Fat Layer Exposed Amount of bleeding with debridement: Mild Bleeding Controlled with: Compression and gauze Patient tolerated procedure: Patient tolerated procedure well Assessment/Plan Assessment/Plan (1) Gastrocnemius equinus of right lower extremity: CODE(S): M21.861 - Other specified acquired deformities of right lower leg (2) Non-pressure chronic ulcer of other part of right foot with fat layer exposed: CODE(S): L97.512 - Non-pressure chronic ulcer of other part of right foot with fat layer exposed (3) Acquired hallux limitus of right foot: CODE(S): M20.5X1 - Other deformities of toe(s) (acquired), right foot (4) Hallux malleus of right foot: CODE(S): M20.31 - Hallux varus (acquired), right foot (5) Hypertension: CODE(S): I10 - Essential (primary) hypertension (6) Morbid obesity with BMI of 40.0-44.9, adult: CODE(S): E66.01 - Morbid (severe) obesity due to excess calories; Z68.41 -Body mass index [BMI] 40.0-44.9, adult (7) Hyperlipidemia: CODE(S): E78.5 - Hyperlipidemia, unspecified (8) Type 2 diabetes mellitus with foot ulcer: CODE(S): E11.621 - Type 2 diabetes mellitus with foot ulcer; L97.509 - Non- pressure chronic ulcer of other part of unspecified foot with unspecified severity (9) Diabetes mellitus with diabetic polyneuropathy: CODE(S): E11.42 - Type 2 diabetes mellitus with diabetic polyneuropathy PLAN: Plan Patient seen and evaluated. Patient was ambulating CAM boot with plantar offloading padding today I have reviewed the LEAS performed 01/17/2023 demonstrating: Left foot triphasic DP and PT on Doppler; Indices left foot PT- 1.05. DP 1.03, Digit 0.91; right foot triphasic DP and PT on Doppler; Indices foot PT 1.10, DP 1.16, digit noncompressible. PVR diminished at ankle and digit on left with noncompressible digit right foot. Impression no evidence of significant occlusive arterial disease. Reviewed diagnostic data from 01/17/2023 demonstrating WBC of 8.7 Radiographic imaging obtained 01/17/2023 demonstrating no evidence of osteomyelitis. I have reviewed this imaging and concur with the radiographic read. I have reviewed her culture results which were obtained 01/17/2023 demonstrating: Providencia rettgeri, Staph aureus, Stap agalactaie, and Kocuria kristinae. She was prescribed Augmentin [address] Omar MD. 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 She did apple picking supervisor antibiotic and has completed antibiotic course. Ulceration underwent debridement as noted in the clinical panel above. Ulcerative site demonstrates healthy granular base with surrounding hyperkeratosis and maceration. No signs of infection. Ulceration measures 1.8 cm x 1.6 cm x 0.1 cm. EpiFix #6 applied to ulcerative base and dressed with Adaptic touch, anchored with Steri-Strips. Absorbant dressing applied followed by Dry sterile dressing applied. She was instructed to change outer dressings as needed due to significant drainage. She was instructed to not get the site wet. Following debridement cultures were obtained 03/01/23 due to her continued significant drainage. She was empirically started on oral doxycycline 100 mg p.o. twice daily x14 days and oral ciprofloxacin 500 mg p.o. twice daily x14 days. She states that she has now picked up oral abx and started on 03/08/23. Culture results demonstrate PsA, Providencia rettgeri, corynebacterium jeikeium, Staphylococcus cohnii urealyti, and anaerobic cocci. Ulcerative site demonstrates slight reduction in size versus previous visit, there is some maceration still about ulcerative site. She was instructed to stay off feet as much as possible to continue to aid in pressure reduction to the ulcerative site. Ulceration demonstrates reduction in size with current offloading versus previous visit. Reminded her she is to only ambulate in the CAM boot for offloading. New offloading padding applied. She was instructed to continue offloading in CAM boot for the right lower extremity with plantar offloading padding for first metatarsal head. She was instructed to weight-bear in the CAM boot at all times and not to wear flip-flops. She may remove the boot for shower purposes and sleeping. She voices understanding of this. Discussed that pressure reduction to the site is essential for her healing status. Discussed proper diabetic diet to maintain tight glycemic control. Last A1c 09/2022 was 7.0%. Discussed continued diet and exercise along with lifestyle modification/weight loss to aid in healthy lifestyle. Discussed importance of daily foot checks. Discussed adequate protein intake to aid in wound healing. She may take Jeremy supplementation to aid in wound healing. Discussed being diabetic she is never to go barefoot and should wear closed toed shoes at all times. Discussed with her socks is considered barefoot. Encouraged shoe gear to be worn at all times. She voices understanding of this today. Recommend diabetic shoes with plantar offloading padding once ulceration has healed. Discussed signs and symptoms of infection. Discussed if she notices redness about the ulcerative site that moves to the top of the foot and up the foot, purulent drainage from the wound site, increasing foul odor, or if she experiences fever greater than 101 degree, nausea, vomiting, chills that these are signs of a progressing infection and she should report to the ED for IV antibiotics. She voices understanding of this today. The following work up and care recommendations were made: Dressing: EpiFix, Adaptic touch, Steri-Strips, dry sterile dressing. Change outer dressings as needed. Wash: Do not get wet Tissue growth optimization: EpiFix Offload: CAM boot with plantar offloading padding Vascular: Palpable pedal pulses bilateral. LEAS obtained and reviewed from 01/17/2023 demonstrating no significant arterial occlusive disease. She is noted to have mild arterial disease of the popliteal/SFA bilateral. On Doppler DP and PT are triphasic bilateral. Edema: No edema noted Infection: No signs of infection Pain: May take [id number] Tylenol for discomfort Host factors: DM type II with peripheral polyneuropathy, hallux limitus right foot, hallux malleus right foot, morbid obesity, equinus deformity all complicated healing potential I answered all the patient's questions. To return to the wound healing center in 1 week or call sooner if the patient has any questions or concerns. 03/15/23 1036 <Electronically signed by Jared Gibbons DPM> Cosigner Signature (if applicable): CC: ~ Signed [facility] Work Phone: [phone] 724-769708-31-2023 Progress note Author Jared Gibbons [facility] March 08, 2023 11:51am Note Date/Time March 08, 2023 9: 55am [facility] [address] [place] [address] Progress Note - Wound Care 03/08/23 0954 MR#: [id number] Acct: [id number] Name: LUCRECIA HOU Rep #:[id number] : 1965 58 From: Jared worley DPM PCP: REX Castillo Status:REG RCR Location: History of Present Illness Date of Service: 03/08/23 Chief Complaint: Diabetic foot ulceration, right metatarsal-phalangeal joint, plantar surface History of Wound: This is a 58-year-old, morbidly-obese, diabetic female who presents with a largeulceration on the right great toe. The ulceration is located at the right firstmetatarsophalangeal joint, on the plantar surface. It has been present for approximately 4 months. According to the patient, it originated as a callus, and she ripped off the skin. She has been using Watkin's salve topically. 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 Her BMI is 41.8. Shedenies a history of smoking. She also denies a history of myocardial infarction, congestive heart failure, cerebrovascular accident, pulmonary disease,renal disease, and thyroid disease. Most recent hemoglobin A1c was 7.0 in September,. Laboratory studies obtained recently, dated January 03, 2023, are as follows: White blood count 8.7, hemoglobin 13.5, hematocrit 41.4, platelets 308,000, sodium 138, potassium 4.0, chloride 101, BUN 14, creatinine 0.65, glucose 140, calcium 9.3, bilirubin 0.40, AST 19, ALT 24, alkaline phosphatase 107, protein 7.8, albumin 3.3. Subjective Subjective This is a 58-year-old diabetic female who presents to the wound care center today for follow-up of a plantar first metatarsal head ulceration of the right foot. Graft in place the wound site. She is changing outer dressings daily. Shehas continued to offload in the CAM boot with plantar offloading padding. She states she has now noticed less drainage from the wound site. She denies any constitutional symptoms. She denies further complaints. Objective Data Objective Data Vital Signs: Vital Signs Temp Pulse Resp BP 97.5 F L 72 20 H 161/84 H 03/01/23 09:32 03/01/23 09:32 03/01/23 09:32 03/01/23 09:32 Weight: 110.677 kg Body Mass Index (BMI) 41.8 Lab / Micro Data Micro: Microbiology 03/01/23 Unknown Wound - Right Foot Gram Stain - Final 03/01/23 Unknown Wound - Right Foot Wound Culture - Final Pseudomonas aeruginosa Providencia rettgeri Corynebacterium jeikeium Staphylococcus cohnii urealyti 03/01/23 Unknown Wound - Right Foot Anaerobic Culture - Final Anaerobic cocci Physical Exam Const alert, oriented x3, no apparent distress and well nourished General Appearance: cooperative HEENT normocephalic Eyes General Eye: normal appearance of both eyes Neck General: normal visual inspection Lymph Lymphatic: no lymphadenopathy noted and no lymphedema noted Resp normal respiratory effort Cardio regular rate and regular rhythm Extremity normal capillary refill, no joint enlargement, no calf tenderness and no pedal edema Extremity Narrative: DP and PT pulses palpable bilateral. Capillary fill time to the digits less than 5 seconds bilateral. Hair growth diminished to the digits bilateral. Dermatological: Skin appears well-hydrated with normal turgor. Hyperkeratotic tissue Sub first metatarsal head of the left foot with no evidence of open wound. There is a large ulceration noted to the plantar aspect of the first metatarsal head of the right foot with surrounding hyperkeratotic tissue and maceration. Wound bed demonstrates granular tissue. No purulent drainage, no malodor, no palpable fluctuance/bogginess, no visible abscess formation, no lymphangitic streaking. Ulceration does not probe to bone. Musculoskeletal: Muscle strength 5 of 5 age-appropriate. She does demonstrate decreased range of motion of the first metatarsophalangeal joint bilateral without pain or crepitus. Decreased range of motion of the ankle joint in dorsiflexion with the knee extended without pain or crepitus bilateral. Hammertoe deformity of the right hallux. No pain to palpation about the ulcerative site plantar first metatarsal head right foot. Skin no rashes or lesions noted, skin turgor normal and no jaundice Neuro moves all extremities Neuro Narrative: Diminished protective sensation bilateral secondary to diabetic peripheral polyneuropathy Debridement Note Debridement Note Wound debrided: Sub first metatarsal head Laterality: Right Wound Grade/Stage: Nichols stage I Type of Debridement: Excisional debridement Anesthesia Used: 5% Lidocaine Gel Depth: Down to and including healthy tissue and in the subcutaneous layer Percentage of wound debrided: 100 Instrument Used: 5mm curette Tissue Removed: Fibrous, devitalized subcutaneous, biofilm, slough Severity: Fat Layer Exposed Amount of bleeding with debridement: Mild Bleeding Controlled with: Compression and gauze Patient tolerated procedure: Patient tolerated procedure well Post-Debridement Measurements and Additional Note: Post-Debridement Measurements/Treatment - Nurse 1 - General Ulcer Assessment Start: 02/08/23 09:06 Freq: Status: Active Protocol: JAXSON Activity Type Activity Date Activity User E-sign Co-sign Detail Recorded Client Recorded Date Recorded By Document 02/08/23 09:08 [id number] 02/08/23 09:17 Document 02/15/23 09:19 PL [id number] 02/15/23 09:24 PL Document 02/22/23 09:18 DL [id number] 02/22/23 09:26 DL Document 03/01/23 09:32 DL [id number] 03/01/23 09:35 DL 02/08/23 02/15/23 02/22/23 09:08 09:19 09:18 - Today's Visit Information Type of service Follow-up Visit Follow-up Visit Follow-up Visit (Physician/AUTOMOTIVE PROFESSIONAL (Physician/AUTOMOTIVE PROFESSIONAL (Physician/AUTOMOTIVE PROFESSIONAL ) ) ) Arrival Mode Ambulatory Ambulatory Ambulatory Transfer Assistance None None Patient Identification Verified (Name & Yes Yes Yes ) Patient Requires Transmission-Based No No No Precautions Safety Precautions NA Height and Weight Body Mass Index (BMI) 41.8 41.8 41.8 BMI Classification Obese Obese Obese Vital Signs Temperature (97.8 F-99.1 F) 96.7 F L 98.5 F 97.7 F L Temperature Source Temporal Temporal Temporal Pulse Rate (60-100) 99 82 Pulse Location Monitor Respiratory Rate (12-18) 18 20 H 22 H Respiratory rate source Observation Observation Blood Pressure (90/60-120/80) 180/99 H 173/75 H Blood Pressure Mean (mm Hg) 126 107 Source Monitor History Since Last Visit- (Skip if this is Patient's initial visit) Have you changed medications since your No No last visit? Any new allergies or adverse reactions No No Had a fall/change in ADL's that may No No increase risk of falls Signs or symptoms of abuse and/or No No neglect since last visit Have you been in the hospital since your No No last visit? Has dressing in place as prescribed Yes Yes Has compression in place as prescribed N/A N/A Has offloadiing in place as prescribed Yes Yes Experienced any changes in pain level or No No management Left Footwear Removable Cast Walker/Walking Boot Pain Scale: 0-10 Numeric Is Patient Pain Free? Yes Yes Yes 03/01/23 09:32 WC - Today's Visit Information Type of service Follow-up Visit (Physician/AUTOMOTIVE PROFESSIONAL ) Arrival Mode Ambulatory Transfer Assistance None Patient Identification Verified (Name & Yes ) Patient Requires Transmission-Based No Precautions Safety Precautions Height and Weight Body Mass Index (BMI) 41.8 BMI Classification Obese Vital Signs Temperature (97.8 F-99.1 F) 97.5 F L Temperature Source Temporal Pulse Rate (60-100) 72 Pulse Location Monitor Respiratory Rate (12-18) 20 H Respiratory rate source Observation Blood Pressure (90/60-120/80) 161/84 H Blood Pressure Mean (mm Hg) 109 Source Monitor History Since Last Visit- (Skip if this is Patient's initial visit) Have you changed medications since your No last visit? Any new allergies or adverse reactions No Had a fall/change in ADL's that may No increase risk of falls Signs or symptoms of abuse and/or No neglect since last visit Have you been in the hospital since your No last visit? Has dressing in place as prescribed Yes Has compression in place as prescribed N/A Has offloadiing in place as prescribed Yes Experienced any changes in pain level or No management Left Footwear Pain Scale: 0-10 Numeric Is Patient Pain Free? Yes WC - Nurse 1 - General Ulcer Measurement Start: 02/08/23 09:06 Freq: Status: Active Protocol: Activity Type Activity Date Activity User E-sign Co-sign Detail Recorded Client Recorded Date Recorded By Document 02/08/23 09:08 JF [id number] 02/08/23 09:17 JF Document 02/22/23 09:18 DL [id number] 02/22/23 09:26 DL Document 03/01/23 09:32 DL [id number] 03/01/23 09:35 DL 02/08/23 02/22/23 03/01/23 09:08 09:18 09:32 Wound Center Nurse 1 2-right 5th metatarsal foot -Combined with other wound No -Current Size (cm) - Length 0.4 -Current Size (cm) - Width 0.6 -Current Size (cm) - Depth 0.2 -Total Square Cm 0.24 -Photo Taken Yes -Epithelialization Small 1-33% -Tunneling No -Undermining/Tunneling No -Circular Undermining No -Exudate Amt Small -Exudate Type Serosanguineous -Wound Margin Flat & Intact -Granulation Amt Large (67-100%) -Granulation Quality Red -Slough/Fibrin Yes -Necrosis Amt Small (1-33%) -Necrotic Tissue Type Adherent Slough -Structure Exposed N/A -Texture (Kelsie-wound Skin Appearance) Assessed, Excoriation -Moisture (Kelsie-wound Skin Appearance) Assessed,Dry/ Scaly -Color (Kelsie-wound Skin Appearance) Assessed -Temperature (Kelsie-wound Skin No Abnormality Appearance) (Pt Warm) -Tenderness on Palpation (Kelsie-wound No Skin Appearance) -Foul Odor after Cleansing No -Anesthetic Used 5% Lidocaine Gel #1 right plantar foot -Combined with other wound No -Current Size (cm) - Length 2.1 1.9 2 -Current Size (cm) - Width 2.4 2.1 2 -Current Size (cm) - Depth 0.2 0.5 0.2 -Total Square Cm 5.04 3.99 4 -Photo Taken Yes -Epithelialization Small 1-33% -Tunneling No -Undermining/Tunneling No -Circular Undermining No -Exudate Amt Medium Large Medium -Exudate Type Serosanguineous Serosanguineous Serosanguineous -Wound Margin Flat & Intact Thickened Thickened -Granulation Amt Large (67-100%) Large (67-100%) Large (67-100%) -Granulation Quality Red Red Red -Slough/Fibrin Yes -Necrosis Amt Small (1-33%) Small (1-33%) Small (1-33%) -Necrotic Tissue Type Adherent Slough Adherent Slough Adherent Slough -Structure Exposed N/A N/A N/A -Texture (Kelsie-wound Skin Appearance) Assessed,Callus Callus, Callus,Scarring Localized Edema ,Rash -Moisture (Kelsie-wound Skin Appearance) Assessed,Dry/ Maceration Maceration Scaly -Color (Kelsie-wound Skin Appearance) Assessed No Abnormality No Abnormality -Temperature (Kelsie-wound Skin No Abnormality No Abnormality No Abnormality Appearance) (Pt Warm) (Pt Warm) (Pt Warm) -Tenderness on Palpation (Kelsie-wound No No No Skin Appearance) -Ulcer Cleansing Rinsed/ Soap and Water Soap and Water Irrigated with Saline -Foul Odor after Cleansing No No No -Anesthetic Used 5% Lidocaine 5% Lidocaine 5% Lidocaine Gel Gel Gel Lower Limb Edema Present NA WC - Nurse 2 - General Ulcer CM Notes Start: 02/08/23 09:06 Freq: Status: Active Protocol: Activity Type Activity Date Activity User E-sign Co-sign Detail Recorded Client Recorded Date Recorded By Document 02/08/23 14:17 PL [id number] 02/08/23 14:21 PL Document 02/15/23 12:20 PL [id number] 02/15/23 12:21 PL Document 02/22/23 12:49 PL [id number] 02/22/23 12:50 PL Document 03/01/23 12:36 PL [id number] 03/01/23 12:39 PL 02/08/23 02/15/23 02/22/23 14:17 12:20 12:49 Wound Center Nurse 2 2-right 5th metatarsal foot -Time 09:34 -Correct Patient Yes -Correct Side, Site, Position Yes -Correct Procedure Yes -Procedure Performed Yes -Type of Procedure Debridement -Clinical Debridement Subcutaneous -Tissue Removed Subcutaneous -Post Debridement (cm) - Length 0.5 -Post Debridement (cm) - Width 0.5 -Post Debridement (cm) - Depth 0.1 -Total Square (Post) (cm) 0.25 -Area of Debridement (cm) - Length 0.5 -Area of Debridement (cm) - Width 0.5 -Total Square (Area) (cm) 0.25 -Tunneling No -Undermining/Tunneling No -Circular Undermining No -Wound/Ulcer Outcome Not Healed -Ulcer Cleansing Rinsed/ Irrigated with Saline -Foul Odor after Cleansing No -Bioengineered Tissue No -Bleeding Controlled with Pressure -Treatment Response Procedure Tolerated Well -Debridement - Subq, 1st 20sq cm Yes #1 right plantar foot -Time 09:34 09:43 09:47 -Correct Patient Yes Yes Yes -Correct Side, Site, Position Yes Yes Yes -Correct Procedure Yes Yes Yes -Procedure Performed Yes Yes Yes -Type of Procedure Debridement Debridement Debridement -Clinical Debridement Subcutaneous Subcutaneous Subcutaneous -Tissue Removed Subcutaneous Subcutaneous Subcutaneous -Post Debridement (cm) - Length 2.1 2.3 2.0 -Post Debridement (cm) - Width 2.5 2.1 2.0 -Post Debridement (cm) - Depth 0.2 0.3 0.2 -Total Square (Post) (cm) 5.25 4.83 4.00 -Area of Debridement (cm) - Length 2.1 2.3 2.0 -Area of Debridement (cm) - Width 2.5 2.1 2.0 -Total Square (Area) (cm) 5.25 4.83 4.00 -Tunneling No No No -Undermining/Tunneling No No No -Circular Undermining No No No -Wound/Ulcer Outcome Not Healed Not Healed Not Healed -Ulcer Cleansing Rinsed/ Rinsed/ Rinsed/ Irrigated with Irrigated with Irrigated with Saline Saline Saline -Foul Odor after Cleansing No No No -Bioengineered Tissue Yes Yes Yes -Type of Bioengineered Tissue Epifix Mesh Epifix Mesh Epifix -Expiration Date 10/08/27 11/07/27 10/08/27 -Product Lot Number [id number] -Percent Used 100 100 100 -Bleeding Controlled with Pressure Pressure Pressure -Treatment Response Procedure Procedure Procedure Tolerated Well Tolerated Well Tolerated Well -Debridement - Subq, 1st 20sq cm No No No -Apply Skin Sub - 1st 25 sq cm - Legs 1 -Apply Skin Sub - 1st 25 sq cm - Feet 1 1 -Epifix (per sq cm) 4 -Epifix Mesh (per sq cm) 11 11 Pain Scale: 0-10 Numeric Is Patient Pain Free? Yes Yes Yes 03/01/23 12:36 Wound Center Nurse 2 2-right 5th metatarsal foot -Time -Correct Patient -Correct Side, Site, Position -Correct Procedure -Procedure Performed -Type of Procedure -Clinical Debridement -Tissue Removed -Post Debridement (cm) - Length -Post Debridement (cm) - Width -Post Debridement (cm) - Depth -Total Square (Post) (cm) -Area of Debridement (cm) - Length -Area of Debridement (cm) - Width -Total Square (Area) (cm) -Tunneling -Undermining/Tunneling -Circular Undermining -Wound/Ulcer Outcome -Ulcer Cleansing -Foul Odor after Cleansing -Bioengineered Tissue -Bleeding Controlled with -Treatment Response -Debridement - Subq, 1st 20sq cm #1 right plantar foot -Time 10:10 -Correct Patient Yes -Correct Side, Site, Position Yes -Correct Procedure Yes -Procedure Performed Yes -Type of Procedure Debridement -Clinical Debridement Subcutaneous -Tissue Removed Subcutaneous -Post Debridement (cm) - Length 1.9 -Post Debridement (cm) - Width 2.1 -Post Debridement (cm) - Depth 0.2 -Total Square (Post) (cm) 3.99 -Area of Debridement (cm) - Length 1.9 -Area of Debridement (cm) - Width 2.1 -Total Square (Area) (cm) 3.99 -Tunneling No -Undermining/Tunneling No -Circular Undermining No -Wound/Ulcer Outcome Not Healed -Ulcer Cleansing Rinsed/ Irrigated with Saline -Foul Odor after Cleansing No -Bioengineered Tissue Yes -Type of Bioengineered Tissue Epifix -Expiration Date 11/07/27 -Product Lot Number [id number] -Percent Used 100 -Bleeding Controlled with Pressure -Treatment Response Procedure Tolerated Well -Debridement - Subq, 1st 20sq cm No -Apply Skin Sub - 1st 25 sq cm - Legs -Apply Skin Sub - 1st 25 sq cm - Feet 1 -Epifix (per sq cm) 4 -Epifix Mesh (per sq cm) Pain Scale: 0-10 Numeric Is Patient Pain Free? Yes - Nurse 3 - General Ulcer D/C NN Start: 02/08/23 09:06 Freq: Status: Active Protocol: Activity Type Activity Date Activity User E-sign Co-sign Detail Recorded Client Recorded Date Recorded By Document 02/08/23 09:54 JF [id number] 02/08/23 09:55 JF Document 02/15/23 11:46 DL [id number] 02/15/23 11:48 DL Document 03/01/23 10:46 DL [id number] 03/01/23 10:46 DL 02/08/23 02/15/23 03/01/23 09:54 11:46 10:46 Wound Care Center Nurse 3 2-right 5th metatarsal foot -Ulcer Cleansing Rinsed/ Irrigated with Saline -Foul Odor after Cleansing No -Primary Dressing Covered/Secured with Dry Gauze & Roll Gauze, Secured with Tape #1 right plantar foot -Ulcer Cleansing Rinsed/ Not Cleansed Irrigated with Saline -Foul Odor after Cleansing No No -Primary Dressing Applied Aquacel Extra, Optilok 6.5x10 -Other Dressing EpiMesh Epifix -Primary Dressing Covered/Secured with Dry Gauze & Dry Gauze & Dry Gauze & Roll Gauze, Roll Gauze, Roll Gauze, Secured with Secured with Secured with Tape Tape Tape -Other Covering ABD -Aquacel Extra 1 -Optilok 6.5x10 1 Treatment Response Procedure Procedure Tolerated Well Tolerated Well Pain Scale: 0-10 Numeric Is Patient Pain Free? Yes Yes Yes - Visit Discharge Discharge Condition Stable Stable Stable Ambulatory Status Ambulatory Ambulatory Ambulatory Transportation Private Auto Private Auto Private Auto Medication Reconcilliation completed & Yes provided to patient/care provider Clinical Summary of Care Provided Yes Facility Type Home Health Orders Sent Yes Assessment/Plan Assessment/Plan (1) Gastrocnemius equinus of right lower extremity: CODE(S): M21.861 - Other specified acquired deformities of right lower leg (2) Non-pressure chronic ulcer of other part of right foot with fat layer exposed: CODE(S): L97.512 - Non-pressure chronic ulcer of other part of right foot with fat layer exposed (3) Acquired hallux limitus of right foot: CODE(S): M20.5X1 - Other deformities of toe(s) (acquired), right foot (4) Hallux malleus of right foot: CODE(S): M20.31 - Hallux varus (acquired), right foot (5) Type 2 diabetes mellitus with foot ulcer: CODE(S): E11.621 - Type 2 diabetes mellitus with foot ulcer; L97.509 - Non- pressure chronic ulcer of other part of unspecified foot with unspecified severity (6) Diabetes mellitus with diabetic polyneuropathy: CODE(S): E11.42 - Type 2 diabetes mellitus with diabetic polyneuropathy (7) Diabetic foot ulcer associated with diabetes mellitus due to underlying condition: CODE(S): E08.621 - Diabetes mellitus due to underlying condition with footulcer; L97.509 - Non-pressure chronic ulcer of other part of unspecified foot with unspecified severity QUALIFIERS: Diabetic foot ulcer location: toe Laterality: right Non-pressure ulcer stage: with fat layer exposed Qualified Code(s): E08.621 - Diabetes mellitus due to underlying condition with foot ulcer; L97.512 - Non-pressure chronic ulcer of other part of right foot with fat layer exposed (8) Hypertension: CODE(S): I10 - Essential (primary) hypertension (9) Hyperlipidemia: CODE(S): E78.5 - Hyperlipidemia, unspecified (10) Morbid obesity with BMI of 40.0-44.9, adult: CODE(S): E66.01 - Morbid (severe) obesity due to excess calories; Z68.41 -Body mass index [BMI] 40.0-44.9, adult PLAN: Plan Patient seen and evaluated. Patient was ambulating CAM boot with plantar offloading padding today I have reviewed the LEAS performed 01/17/2023 demonstrating: Left foot triphasic DP and PT on Doppler; Indices left foot PT- 1.05. DP 1.03, Digit 0.91; right foot triphasic DP and PT on Doppler; Indices foot PT 1.10, DP 1.16, digit noncompressible. PVR diminished at ankle and digit on left with noncompressible digit right foot. Impression no evidence of significant occlusive arterial disease. Reviewed diagnostic data from 01/17/2023 demonstrating WBC of 8.7 Radiographic imaging obtained 01/17/2023 demonstrating no evidence of osteomyelitis. I have reviewed this imaging and concur with the radiographic read. I have reviewed her culture results which were obtained 01/17/2023 demonstrating: Providencia rettgeri, Staph aureus, Stap agalactaie, and Kocuria kristinae. She was prescribed Augmentin [address] Omar MD. 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 She did apple picking supervisor antibiotic and has completed antibiotic course. Ulceration underwent debridement as noted in the clinical panel above. Ulcerative site demonstrates healthy granular base with surrounding hyperkeratosis and maceration. No signs of infection. Ulceration measures 1.8 cm x 1.7 cm x 0.1 cm. EpiFix #5 applied to ulcerative base and dressed with Adaptic touch, anchored with Steri-Strips. Absorbant dressing applied followed by Dry sterile dressing applied. She was instructed to change outer dressings as needed due to significant drainage. She was instructed to not get the site wet. Following debridement cultures were obtained 03/01/23 due to her continued significant drainage. She was empirically started on oral doxycycline 100 mg p.o. twice daily x14 days and oral ciprofloxacin 500 mg p.o. twice daily x14 days. She states that she did not apple picking supervisor antibiotic due to mistake with filling at [facility] [place]. Antibiotic called into drug [place] for pickup. Culture results demonstrate PsA, Providencia rettgeri, corynebacterium jeikeium, Staphylococcus cohnii urealyti, and anaerobic cocci. Ulcerative site demonstrates reduction in size versus previous visit with less drainage. She was instructed to stay off feet as much as possible to continue to aid in pressure reduction to the ulcerative site. Ulceration demonstrates reduction in size with current offloading versus previous visit. Reminded her she is to only ambulate in the CAM boot for offloading. She was instructed to continue offloading in CAM boot for the right lower extremity with plantar offloading padding for first metatarsal head. She was instructed to weight-bear in the CAM boot at all times and not to wear flip-flops. She may remove the boot for shower purposes and sleeping. She voices understanding of this. Discussed that pressure reduction to the site is essential for her healing status. Discussed proper diabetic diet to maintain tight glycemic control. Last A1c 09/2022 was 7.0%. Discussed continued diet and exercise along with lifestyle modification/weight loss to aid in healthy lifestyle. Discussed importance of daily foot checks. Discussed adequate protein intake to aid in wound healing. She may take Jeremy supplementation to aid in wound healing. Discussed being diabetic she is never to go barefoot and should wear closed toed shoes at all times. Discussed with her socks is considered barefoot. Encouraged shoe gear to be worn at all times. She voices understanding of this today. Recommend diabetic shoes with plantar offloading padding once ulceration has healed. Discussed signs and symptoms of infection. Discussed if she notices redness about the ulcerative site that moves to the top of the foot and up the foot, purulent drainage from the wound site, increasing foul odor, or if she experiences fever greater than 101 degree, nausea, vomiting, chills that these are signs of a progressing infection and she should report to the ED for IV antibiotics. She voices understanding of this today. The following work up and care recommendations were made: Dressing: EpiFix, Adaptic touch, Steri-Strips, dry sterile dressing. Change outer dressings as needed. Wash: Do not get wet Tissue growth optimization: EpiFix Offload: CAM boot with plantar offloading padding Vascular: Palpable pedal pulses bilateral. LEAS obtained and reviewed from 01/17/2023 demonstrating no significant arterial occlusive disease. She is noted to have mild arterial disease of the popliteal/SFA bilateral. On Doppler DP and PT are triphasic bilateral. Edema: No edema noted Infection: No signs of infection Pain: May take [id number] Tylenol for discomfort Host factors: DM type II with peripheral polyneuropathy, hallux limitus right foot, hallux malleus right foot, morbid obesity, equinus deformity all complicated healing potential I answered all the patient's questions. To return to the wound healing center in 1 week or call sooner if the patient has any questions or concerns. 03/08/23 1157 <Electronically signed by Jared Gibbons DPM> Cosigner Signature (if applicable): CC: ~ Signed [facility] Work Phone: [phone] 306-372808-24-2023 Progress note Author Jared Shai [facility] March 01, 2023 1:27pm Note Date/Time March 01, 2023 10 :25am [facility] [address] [place] [address] Progress Note - Wound Care 03/01/23 1025 MR#: [id number] Acct: [id number] Name: LUCRECIA HOU Rep #:[id number] : 1965 58 From: Jared worley DPM PCP: REX Castillo Status:REG RCR Location: History of Present Illness Date of Service: 03/01/23 Chief Complaint: Diabetic foot ulceration, right metatarsal-phalangeal joint, plantar surface History of Wound: This is a 58-year-old, morbidly-obese, diabetic female who presents with a largeulceration on the right great toe. The ulceration is located at the right firstmetatarsophalangeal joint, on the plantar surface. It has been present for approximately 4 months. According to the patient, it originated as a callus, and she ripped off the skin. She has been using Watkin's salve topically. 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 Her BMI is 41.8. Shedenies a history of smoking. She also denies a history of myocardial infarction, congestive heart failure, cerebrovascular accident, pulmonary disease,renal disease, and thyroid disease. Most recent hemoglobin A1c was 7.0 in September,. Laboratory studies obtained recently, dated January 03, 2023, are as follows: White blood count 8.7, hemoglobin 13.5, hematocrit 41.4, platelets 308,000, sodium 138, potassium 4.0, chloride 101, BUN 14, creatinine 0.65, glucose 140, calcium 9.3, bilirubin 0.40, AST 19, ALT 24, alkaline phosphatase 107, protein 7.8, albumin 3.3. Subjective Subjective This is a 58-year-old diabetic female who presents to the wound care center today for follow-up of a plantar first metatarsal head ulceration of the right foot. Graft in place the wound site. She is changing outer dressings daily. Shehas continued to offload in the [facility] boot with plantar offloading padding. She denies any constitutional symptoms. She denies further complaints. Objective Data Objective Data Vital Signs: Vital Signs Temp Pulse Resp BP 97.5 F L 72 20 H 161/84 H 03/01/23 09:32 03/01/23 09:32 03/01/23 09:32 03/01/23 09:32 Weight: 110.677 kg Body Mass Index (BMI) 41.8 Physical Exam Const alert, oriented x3, no apparent distress and well nourished General Appearance: cooperative HEENT normocephalic Eyes General Eye: normal appearance of both eyes Neck General: normal visual inspection Lymph Lymphatic: no lymphadenopathy noted and no lymphedema noted Resp normal respiratory effort Cardio regular rate and regular rhythm Extremity normal capillary refill, no joint enlargement, no calf tenderness and no pedal edema Extremity Narrative: DP and PT pulses palpable bilateral. Capillary fill time to the digits less than 5 seconds bilateral. Hair growth diminished to the digits bilateral. Dermatological: Skin appears well-hydrated with normal turgor. Hyperkeratotic tissue Sub first metatarsal head of the left foot with no evidence of open wound. There is a large ulceration noted to the plantar aspect of the first metatarsal head of the right foot with surrounding hyperkeratotic tissue and maceration. Wound bed demonstrates granular tissue. No purulent drainage, no malodor, no palpable fluctuance/bogginess, no visible abscess formation, no lymphangitic streaking. Ulceration does not probe to bone. Musculoskeletal: Muscle strength 5 of 5 age-appropriate. She does demonstrate decreased range of motion of the first metatarsophalangeal joint bilateral without pain or crepitus. Decreased range of motion of the ankle joint in dorsiflexion with the knee extended without pain or crepitus bilateral. Hammertoe deformity of the right hallux. No pain to palpation about the ulcerative site plantar first metatarsal head right foot. Skin no rashes or lesions noted, skin turgor normal and no jaundice Neuro moves all extremities Neuro Narrative: Diminished protective sensation bilateral secondary to diabetic peripheral polyneuropathy Debridement Note Debridement Note Wound debrided: Sub first metatarsal head Laterality: Right Wound Grade/Stage: Nichols stage I Type of Debridement: Excisional debridement Anesthesia Used: 5% Lidocaine Gel Depth: Down to and including healthy tissue and in the subcutaneous layer Percentage of wound debrided: 100 Instrument Used: 5mm curette Tissue Removed: Fibrous, devitalized subcutaneous, biofilm, slough Severity: Fat Layer Exposed Amount of bleeding with debridement: Mild Bleeding Controlled with: Compression and gauze Patient tolerated procedure: Patient tolerated procedure well Post-Debridement Measurements and Additional Note: Post-Debridement Measurements/Treatment - Nurse 1 - General Ulcer Assessment Start: 02/08/23 09:06 Freq: Status: Active Protocol: JAXSON Activity Type Activity Date Activity User E-sign Co-sign Detail Recorded Client Recorded Date Recorded By Document 02/08/23 09:08 JF [id number] 02/08/23 09:17 JF Document 02/15/23 09:19 PL [id number] 02/15/23 09:24 PL Document 02/22/23 09:18 DL [id number] 02/22/23 09:26 DL Document 03/01/23 09:32 DL [id number] 03/01/23 09:35 DL 02/08/23 02/15/23 02/22/23 09:08 09:19 09:18 - Today's Visit Information Type of service Follow-up Visit Follow-up Visit Follow-up Visit (Physician/AUTOMOTIVE PROFESSIONAL (Physician/AUTOMOTIVE PROFESSIONAL (Physician/AUTOMOTIVE PROFESSIONAL ) ) ) Arrival Mode Ambulatory Ambulatory Ambulatory Transfer Assistance None None Patient Identification Verified (Name & Yes Yes Yes ) Patient Requires Transmission-Based No No No Precautions Safety Precautions NA Height and Weight Body Mass Index (BMI) 41.8 41.8 41.8 BMI Classification Obese Obese Obese Vital Signs Temperature (97.8 F-99.1 F) 96.7 F L 98.5 F 97.7 F L Temperature Source Temporal Temporal Temporal Pulse Rate (60-100) 99 82 Pulse Location Monitor Respiratory Rate (12-18) 18 20 H 22 H Respiratory rate source Observation Observation Blood Pressure (90/60-120/80) 180/99 H 173/75 H Blood Pressure Mean (mm Hg) 126 107 Source Monitor History Since Last Visit- (Skip if this is Patient's initial visit) Have you changed medications since your No No last visit? Any new allergies or adverse reactions No No Had a fall/change in ADL's that may No No increase risk of falls Signs or symptoms of abuse and/or No No neglect since last visit Have you been in the hospital since your No No last visit? Has dressing in place as prescribed Yes Yes Has compression in place as prescribed N/A N/A Has offloadiing in place as prescribed Yes Yes Experienced any changes in pain level or No No management Left Footwear Removable Cast Walker/Walking Boot Pain Scale: 0-10 Numeric Is Patient Pain Free? Yes Yes Yes 03/01/23 09:32 WC - Today's Visit Information Type of service Follow-up Visit (Physician/AUTOMOTIVE PROFESSIONAL ) Arrival Mode Ambulatory Transfer Assistance None Patient Identification Verified (Name & Yes ) Patient Requires Transmission-Based No Precautions Safety Precautions Height and Weight Body Mass Index (BMI) 41.8 BMI Classification Obese Vital Signs Temperature (97.8 F-99.1 F) 97.5 F L Temperature Source Temporal Pulse Rate (60-100) 72 Pulse Location Monitor Respiratory Rate (12-18) 20 H Respiratory rate source Observation Blood Pressure (90/60-120/80) 161/84 H Blood Pressure Mean (mm Hg) 109 Source Monitor History Since Last Visit- (Skip if this is Patient's initial visit) Have you changed medications since your No last visit? Any new allergies or adverse reactions No Had a fall/change in ADL's that may No increase risk of falls Signs or symptoms of abuse and/or No neglect since last visit Have you been in the hospital since your No last visit? Has dressing in place as prescribed Yes Has compression in place as prescribed N/A Has offloadiing in place as prescribed Yes Experienced any changes in pain level or No management Left Footwear Pain Scale: 0-10 Numeric Is Patient Pain Free? Yes - Nurse 1 - General Ulcer Measurement Start: 02/08/23 09:06 Freq: Status: Active Protocol: Activity Type Activity Date Activity User E-sign Co-sign Detail Recorded Client Recorded Date Recorded By Document 02/08/23 09:08 [id number] 02/08/23 09:17 JF Document 02/22/23 09:18 DL [id number] 02/22/23 09:26 DL Document 03/01/23 09:32 DL [id number] 03/01/23 09:35 DL 02/08/23 02/22/23 03/01/23 09:08 09:18 09:32 Wound Center Nurse 1 2-right 5th metatarsal foot -Combined with other wound No -Current Size (cm) - Length 0.4 -Current Size (cm) - Width 0.6 -Current Size (cm) - Depth 0.2 -Total Square Cm 0.24 -Photo Taken Yes -Epithelialization Small 1-33% -Tunneling No -Undermining/Tunneling No -Circular Undermining No -Exudate Amt Small -Exudate Type Serosanguineous -Wound Margin Flat & Intact -Granulation Amt Large (67-100%) -Granulation Quality Red -Slough/Fibrin Yes -Necrosis Amt Small (1-33%) -Necrotic Tissue Type Adherent Slough -Structure Exposed N/A -Texture (Kelsie-wound Skin Appearance) Assessed, Excoriation -Moisture (Kelsie-wound Skin Appearance) Assessed,Dry/ Scaly -Color (Kelsie-wound Skin Appearance) Assessed -Temperature (Kelsie-wound Skin No Abnormality Appearance) (Pt Warm) -Tenderness on Palpation (Kelsie-wound No Skin Appearance) -Foul Odor after Cleansing No -Anesthetic Used 5% Lidocaine Gel #1 right plantar foot -Combined with other wound No -Current Size (cm) - Length 2.1 1.9 2 -Current Size (cm) - Width 2.4 2.1 2 -Current Size (cm) - Depth 0.2 0.5 0.2 -Total Square Cm 5.04 3.99 4 -Photo Taken Yes -Epithelialization Small 1-33% -Tunneling No -Undermining/Tunneling No -Circular Undermining No -Exudate Amt Medium Large Medium -Exudate Type Serosanguineous Serosanguineous Serosanguineous -Wound Margin Flat & Intact Thickened Thickened -Granulation Amt Large (67-100%) Large (67-100%) Large (67-100%) -Granulation Quality Red Red Red -Slough/Fibrin Yes -Necrosis Amt Small (1-33%) Small (1-33%) Small (1-33%) -Necrotic Tissue Type Adherent Slough Adherent Slough Adherent Slough -Structure Exposed N/A N/A N/A -Texture (Kelsie-wound Skin Appearance) Assessed,Callus Callus, Callus,Scarring Localized Edema ,Rash -Moisture (Kelsie-wound Skin Appearance) Assessed,Dry/ Maceration Maceration Scaly -Color (Kelsie-wound Skin Appearance) Assessed No Abnormality No Abnormality -Temperature (Kelsie-wound Skin No Abnormality No Abnormality No Abnormality Appearance) (Pt Warm) (Pt Warm) (Pt Warm) -Tenderness on Palpation (Kelsie-wound No No No Skin Appearance) -Ulcer Cleansing Rinsed/ Soap and Water Soap and Water Irrigated with Saline -Foul Odor after Cleansing No No No -Anesthetic Used 5% Lidocaine 5% Lidocaine 5% Lidocaine Gel Gel Gel Lower Limb Edema Present NA WC - Nurse 2 - General Ulcer CM Notes Start: 02/08/23 09:06 Freq: Status: Active Protocol: Activity Type Activity Date Activity User E-sign Co-sign Detail Recorded Client Recorded Date Recorded By Document 02/08/23 14:17 PL [id number] 02/08/23 14:21 PL Document 02/15/23 12:20 PL [id number] 02/15/23 12:21 PL Document 02/22/23 12:49 PL [id number] 02/22/23 12:50 PL 02/08/23 02/15/23 02/22/23 14:17 12:20 12:49 Wound Center Nurse 2 2-right 5th metatarsal foot -Time 09:34 -Correct Patient Yes -Correct Side, Site, Position Yes -Correct Procedure Yes -Procedure Performed Yes -Type of Procedure Debridement -Clinical Debridement Subcutaneous -Tissue Removed Subcutaneous -Post Debridement (cm) - Length 0.5 -Post Debridement (cm) - Width 0.5 -Post Debridement (cm) - Depth 0.1 -Total Square (Post) (cm) 0.25 -Area of Debridement (cm) - Length 0.5 -Area of Debridement (cm) - Width 0.5 -Total Square (Area) (cm) 0.25 -Tunneling No -Undermining/Tunneling No -Circular Undermining No -Wound/Ulcer Outcome Not Healed -Ulcer Cleansing Rinsed/ Irrigated with Saline -Foul Odor after Cleansing No -Bioengineered Tissue No -Bleeding Controlled with Pressure -Treatment Response Procedure Tolerated Well -Debridement - Subq, 1st 20sq cm Yes #1 right plantar foot -Time 09:34 09:43 09:47 -Correct Patient Yes Yes Yes -Correct Side, Site, Position Yes Yes Yes -Correct Procedure Yes Yes Yes -Procedure Performed Yes Yes Yes -Type of Procedure Debridement Debridement Debridement -Clinical Debridement Subcutaneous Subcutaneous Subcutaneous -Tissue Removed Subcutaneous Subcutaneous Subcutaneous -Post Debridement (cm) - Length 2.1 2.3 2.0 -Post Debridement (cm) - Width 2.5 2.1 2.0 -Post Debridement (cm) - Depth 0.2 0.3 0.2 -Total Square (Post) (cm) 5.25 4.83 4.00 -Area of Debridement (cm) - Length 2.1 2.3 2.0 -Area of Debridement (cm) - Width 2.5 2.1 2.0 -Total Square (Area) (cm) 5.25 4.83 4.00 -Tunneling No No No -Undermining/Tunneling No No No -Circular Undermining No No No -Wound/Ulcer Outcome Not Healed Not Healed Not Healed -Ulcer Cleansing Rinsed/ Rinsed/ Rinsed/ Irrigated with Irrigated with Irrigated with Saline Saline Saline -Foul Odor after Cleansing No No No -Bioengineered Tissue Yes Yes Yes -Type of Bioengineered Tissue Epifix Mesh Epifix Mesh Epifix -Expiration Date 10/08/27 11/07/27 10/08/27 -Product Lot Number [id number] -Percent Used 100 100 100 -Bleeding Controlled with Pressure Pressure Pressure -Treatment Response Procedure Procedure Procedure Tolerated Well Tolerated Well Tolerated Well -Debridement - Subq, 1st 20sq cm No No No -Apply Skin Sub - 1st 25 sq cm - Legs 1 -Apply Skin Sub - 1st 25 sq cm - Feet 1 1 -Epifix (per sq cm) 4 -Epifix Mesh (per sq cm) 11 11 Pain Scale: 0-10 Numeric Is Patient Pain Free? Yes Yes Yes - Nurse 3 - General Ulcer D/C NN Start: 02/08/23 09:06 Freq: Status: Active Protocol: Activity Type Activity Date Activity User E-sign Co-sign Detail Recorded Client Recorded Date Recorded By Document 02/08/23 09:54 BRYANT [id number] 02/08/23 09:55 BRYANT Document 02/15/23 11:46 DL [id number] 02/15/23 11:48 DL 02/08/23 02/15/23 09:54 11:46 Wound Care Center Nurse 3 2-right 5th metatarsal foot -Ulcer Cleansing Rinsed/ Irrigated with Saline -Foul Odor after Cleansing No -Primary Dressing Covered/Secured with Dry Gauze & Roll Gauze, Secured with Tape #1 right plantar foot -Ulcer Cleansing Rinsed/ Not Cleansed Irrigated with Saline -Foul Odor after Cleansing No -Other Dressing EpiMesh -Primary Dressing Covered/Secured with Dry Gauze & Dry Gauze & Roll Gauze, Roll Gauze, Secured with Secured with Tape Tape -Other Covering ABD Treatment Response Procedure Tolerated Well Pain Scale: 0-10 Numeric Is Patient Pain Free? Yes Yes WC - Visit Discharge Discharge Condition Stable Stable Ambulatory Status Ambulatory Ambulatory Transportation Private Auto Private Auto Medication Reconcilliation completed & Yes provided to patient/care provider Clinical Summary of Care Provided Yes Facility Type Home Health Orders Sent Yes Assessment/Plan Assessment/Plan (1) Gastrocnemius equinus of right lower extremity: CODE(S): M21.861 - Other specified acquired deformities of right lower leg (2) Non-pressure chronic ulcer of other part of right foot with fat layer exposed: CODE(S): L97.512 - Non-pressure chronic ulcer of other part of right foot with fat layer exposed (3) Acquired hallux limitus of right foot: CODE(S): M20.5X1 - Other deformities of toe(s) (acquired), right foot (4) Hallux malleus of right foot: CODE(S): M20.31 - Hallux varus (acquired), right foot (5) Type 2 diabetes mellitus with foot ulcer: CODE(S): E11.621 - Type 2 diabetes mellitus with foot ulcer; L97.509 - Non- pressure chronic ulcer of other part of unspecified foot with unspecified severity (6) Diabetes mellitus with diabetic polyneuropathy: CODE(S): E11.42 - Type 2 diabetes mellitus with diabetic polyneuropathy (7) Diabetic foot ulcer associated with diabetes mellitus due to underlying condition: CODE(S): E08.621 - Diabetes mellitus due to underlying condition with footulcer; L97.509 - Non-pressure chronic ulcer of other part of unspecified foot with unspecified severity QUALIFIERS: Diabetic foot ulcer location: toe Laterality: right Non-pressure ulcer stage: with fat layer exposed Qualified Code(s): E08.621 - Diabetes mellitus due to underlying condition with foot ulcer; L97.512 - Non-pressure chronic ulcer of other part of right foot with fat layer exposed (8) Hypertension: CODE(S): I10 - Essential (primary) hypertension (9) Hyperlipidemia: CODE(S): E78.5 - Hyperlipidemia, unspecified (10) Morbid obesity with BMI of 40.0-44.9, adult: CODE(S): E66.01 - Morbid (severe) obesity due to excess calories; Z68.41 -Body mass index [BMI] 40.0-44.9, adult PLAN: Plan Patient seen and evaluated. Patient was ambulating CAM boot with plantar offloading padding today I have reviewed the LEAS performed 01/17/2023 demonstrating: Left foot triphasic DP and PT on Doppler; Indices left foot PT- 1.05. DP 1.03, Digit 0.91; right foot triphasic DP and PT on Doppler; Indices foot PT 1.10, DP 1.16, digit noncompressible. PVR diminished at ankle and digit on left with noncompressible digit right foot. Impression no evidence of significant occlusive arterial disease. Reviewed diagnostic data from 01/17/2023 demonstrating WBC of 8.7 Radiographic imaging obtained 01/17/2023 demonstrating no evidence of osteomyelitis. I have reviewed this imaging and concur with the radiographic read. I have reviewed her culture results which were obtained 01/17/2023 demonstrating: Providencia rettgeri, Staph aureus, Stap agalactaie, and Kocuria kristinae. She was prescribed Augmentin [address] Omar MD. 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 She did apple picking supervisor antibiotic and has completed antibiotic course. Ulceration underwent debridement as noted in the clinical panel above. Ulcerative site demonstrates healthy granular base with surrounding hyperkeratosis and maceration. No signs of infection. Ulceration measures 1.9 cm x 2.1 cm x 0.1 cm. EpiFix #4 applied to ulcerative base and dressed with Adaptic touch, anchored with Steri-Strips. Absorbant dressing applied followed by Dry sterile dressing applied. She was instructed to change outer dressings as needed due to significant drainage. She was instructed to not get the site wet. Following debridement cultures were obtained due to her continued significant drainage. She was empirically started on oral doxycycline 100 mg p.o. twice daily x14 days and oral ciprofloxacin 500 mg p.o. twice daily x14 days. Awaiting culture results. Ulcerative site demonstrates no reduction in size versus previous visit. She was instructed to stay off feet as much as possible to continue to aid in pressure reduction to the ulcerative site. Ulceration demonstrates no change in size with current offloading versus previous visit. Change of offloading padding was performed today due to significant drainage and wearing down of offloading padding. Reminded her she is to only ambulate in the CAM boot for offloading. I suspect barefoot ambulation or sandals are still being worn outside of visits. She was instructed to continue offloading in CAM boot for the right lower extremity with plantar offloading padding for first metatarsal head. She was instructed to weight-bear in the CAM boot at all times and not to wear flip-flops. She may remove the boot for shower purposes and sleeping. She voices understanding of this. Discussed that pressure reduction to the site is essential for her healing status. Discussed proper diabetic diet to maintain tight glycemic control. Last A1c 09/2022 was 7.0%. Discussed continued diet and exercise along with lifestyle modification/weight loss to aid in healthy lifestyle. Discussed importance of daily foot checks. Discussed adequate protein intake to aid in wound healing. She may take Jeremy supplementation to aid in wound healing. Discussed being diabetic she is never to go barefoot and should wear closed toed shoes at all times. Discussed with her socks is considered barefoot. Encouraged shoe gear to be worn at all times. She voices understanding of this today. Recommend diabetic shoes with plantar offloading padding once ulceration has healed. Discussed signs and symptoms of infection. Discussed if she notices redness about the ulcerative site that moves to the top of the foot and up the foot, purulent drainage from the wound site, increasing foul odor, or if she experiences fever greater than 101 degree, nausea, vomiting, chills that these are signs of a progressing infection and she should report to the ED for IV antibiotics. She voices understanding of this today. The following work up and care recommendations were made: Dressing: EpiFix, Adaptic touch, Steri-Strips, dry sterile dressing. Change outer dressings as needed. Wash: Do not get wet Tissue growth optimization: EpiFix Offload: CAM boot with plantar offloading padding Vascular: Palpable pedal pulses bilateral. LEAS obtained and reviewed from 01/17/2023 demonstrating no significant arterial occlusive disease. She is noted to have mild arterial disease of the popliteal/SFA bilateral. On Doppler DP and PT are triphasic bilateral. Edema: No edema noted Infection: No signs of infection Pain: May take [id number] Tylenol for discomfort Host factors: DM type II with peripheral polyneuropathy, hallux limitus right foot, hallux malleus right foot, morbid obesity, equinus deformity all complicated healing potential I answered all the patient's questions. To return to the wound healing center in 1 week or call sooner if the patient has any questions or concerns. 03/01/23 1327 <Electronically signed by Jared Gibbons DPM> Cosigner Signature (if applicable): CC: ~ Signed [facility] Work Phone: 1(464) 639-731308-17-2023 Progress note Author Jared Gibbons [facility] February 22, 2023 11:59am Note Date/Time February 22, 2023 11 :52am [facility] [address] [place] [address] Progress Note - Wound Care 02/22/23 1148 MR#: [id number] Acct: [id number] Name: LUCRECIA HOU Rep #:[id number] : 1965 58 From: Jared worley DPM PCP: REX Castillo Status:REG RCR Location: History of Present Illness Date of Service: 02/22/23 Chief Complaint: Diabetic foot ulceration, right metatarsal-phalangeal joint, plantar surface History of Wound: This is a 58-year-old, morbidly-obese, diabetic female who presents with a largeulceration on the right great toe. The ulceration is located at the right firstmetatarsophalangeal joint, on the plantar surface. It has been present for approximately 4 months. According to the patient, it originated as a callus, and she ripped off the skin. She has been using Watkin's salve topically. 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 Her BMI is 41.8. Shedenies a history of smoking. She also denies a history of myocardial infarction, congestive heart failure, cerebrovascular accident, pulmonary disease,renal disease, and thyroid disease. Most recent hemoglobin A1c was 7.0 in September,. Laboratory studies obtained recently, dated January 03, 2023, are as follows: White blood count 8.7, hemoglobin 13.5, hematocrit 41.4, platelets 308,000, sodium 138, potassium 4.0, chloride 101, BUN 14, creatinine 0.65, glucose 140, calcium 9.3, bilirubin 0.40, AST 19, ALT 24, alkaline phosphatase 107, protein 7.8, albumin 3.3. Subjective Subjective This is a 58-year-old diabetic female who presents to the wound care center today for follow-up of a plantar first metatarsal head ulceration of the right foot. Graft in place the wound site. She states she is now changing outer dressings daily. She has continued to offload in the CAM boot with plantar offloading padding. She denies any constitutional symptoms. She denies furthercomplaints. Objective Data Objective Data Vital Signs: Vital Signs Temp Pulse Resp BP 97.7 F L 82 22 H 173/75 H 02/22/23 09:18 02/22/23 09:18 02/22/23 09:18 02/22/23 09:18 Weight: 110.677 kg Body Mass Index (BMI) 41.8 Physical Exam Const alert, oriented x3, no apparent distress and well nourished General Appearance: cooperative HEENT normocephalic Eyes General Eye: normal appearance of both eyes Neck General: normal visual inspection Lymph Lymphatic: no lymphadenopathy noted and no lymphedema noted Resp normal respiratory effort Cardio regular rate and regular rhythm Extremity normal capillary refill, no joint enlargement, no calf tenderness and no pedal edema Extremity Narrative: DP and PT pulses palpable bilateral. Capillary fill time to the digits less than 5 seconds bilateral. Hair growth diminished to the digits bilateral. Dermatological: Skin appears well-hydrated with normal turgor. Hyperkeratotic tissue Sub first metatarsal head of the left foot with no evidence of open wound. There is a large ulceration noted to the plantar aspect of the first metatarsal head of the right foot with surrounding hyperkeratotic tissue and maceration. Wound bed demonstrates granular tissue. No purulent drainage, no malodor, no palpable fluctuance/bogginess, no visible abscess formation, no lymphangitic streaking. Ulceration does not probe to bone. Musculoskeletal: Muscle strength 5 of 5 age-appropriate. She does demonstrate decreased range of motion of the first metatarsophalangeal joint bilateral without pain or crepitus. Decreased range of motion of the ankle joint in dorsiflexion with the knee extended without pain or crepitus bilateral. Hammertoe deformity of the right hallux. No pain to palpation about the ulcerative site plantar first metatarsal head right foot. Skin no rashes or lesions noted, skin turgor normal and no jaundice Neuro moves all extremities Neuro Narrative: Diminished protective sensation bilateral secondary to diabetic peripheral polyneuropathy Debridement Note Debridement Note Wound debrided: Sub first metatarsal head Laterality: Right Wound Grade/Stage: Nichols stage I Type of Debridement: Excisional debridement Anesthesia Used: 5% Lidocaine Gel Depth: Down to and including healthy tissue and in the subcutaneous layer Percentage of wound debrided: 100 Instrument Used: 5mm curette Tissue Removed: Fibrous, devitalized subcutaneous, biofilm, slough Severity: Fat Layer Exposed Amount of bleeding with debridement: Mild Bleeding Controlled with: Compression and gauze Patient tolerated procedure: Patient tolerated procedure well Post-Debridement Measurements and Additional Note: Post-Debridement Measurements/Treatment - Nurse 1 - General Ulcer Assessment Start: 02/08/23 09:06 Freq: Status: Active Protocol: JAXSON Activity Type Activity Date Activity User E-sign Co-sign Detail Recorded Client Recorded Date Recorded By Document 02/08/23 09:08 [id number] 02/08/23 09:17 Document 02/15/23 09:19 PL [id number] 02/15/23 09:24 PL Document 02/22/23 09:18 DL [id number] 02/22/23 09:26 DL 02/08/23 02/15/23 02/22/23 09:08 09:19 09:18 - Today's Visit Information Type of service Follow-up Visit Follow-up Visit Follow-up Visit (Physician/AUTOMOTIVE PROFESSIONAL (Physician/AUTOMOTIVE PROFESSIONAL (Physician/AUTOMOTIVE PROFESSIONAL ) ) ) Arrival Mode Ambulatory Ambulatory Ambulatory Transfer Assistance None None Patient Identification Verified (Name & Yes Yes Yes ) Patient Requires Transmission-Based No No No Precautions Safety Precautions NA Height and Weight Body Mass Index (BMI) 41.8 41.8 41.8 BMI Classification Obese Obese Obese Vital Signs Temperature (97.8 F-99.1 F) 96.7 F L 98.5 F 97.7 F L Temperature Source Temporal Temporal Temporal Pulse Rate (60-100) 99 82 Pulse Location Monitor Respiratory Rate (12-18) 18 20 H 22 H Respiratory rate source Observation Observation Blood Pressure (90/60-120/80) 180/99 H 173/75 H Blood Pressure Mean (mm Hg) 126 107 Source Monitor History Since Last Visit- (Skip if this is Patient's initial visit) Have you changed medications since your No No last visit? Any new allergies or adverse reactions No No Had a fall/change in ADL's that may No No increase risk of falls Signs or symptoms of abuse and/or No No neglect since last visit Have you been in the hospital since your No No last visit? Has dressing in place as prescribed Yes Yes Has compression in place as prescribed N/A N/A Has offloadiing in place as prescribed Yes Yes Experienced any changes in pain level or No No management Left Footwear Removable Cast Walker/Walking Boot Pain Scale: 0-10 Numeric Is Patient Pain Free? Yes Yes Yes WC - Nurse 1 - General Ulcer Measurement Start: 02/08/23 09:06 Freq: Status: Active Protocol: Activity Type Activity Date Activity User E-sign Co-sign Detail Recorded Client Recorded Date Recorded By Document 02/08/23 09:08 [id number] 02/08/23 09:17 Document 02/22/23 09:18 DL [id number] 02/22/23 09:26 DL 02/08/23 02/22/23 09:08 09:18 Wound Center Nurse 1 2-right 5th metatarsal foot -Combined with other wound No -Current Size (cm) - Length 0.4 -Current Size (cm) - Width 0.6 -Current Size (cm) - Depth 0.2 -Total Square Cm 0.24 -Photo Taken Yes -Epithelialization Small 1-33% -Tunneling No -Undermining/Tunneling No -Circular Undermining No -Exudate Amt Small -Exudate Type Serosanguineous -Wound Margin Flat & Intact -Granulation Amt Large (67-100%) -Granulation Quality Red -Slough/Fibrin Yes -Necrosis Amt Small (1-33%) -Necrotic Tissue Type Adherent Slough -Structure Exposed N/A -Texture (Kelsie-wound Skin Appearance) Assessed, Excoriation -Moisture (Kelsie-wound Skin Appearance) Assessed,Dry/ Scaly -Color (Kelsie-wound Skin Appearance) Assessed -Temperature (Kelsie-wound Skin No Abnormality Appearance) (Pt Warm) -Tenderness on Palpation (Kelsie-wound No Skin Appearance) -Foul Odor after Cleansing No -Anesthetic Used 5% Lidocaine Gel #1 right plantar foot -Combined with other wound No -Current Size (cm) - Length 2.1 1.9 -Current Size (cm) - Width 2.4 2.1 -Current Size (cm) - Depth 0.2 0.5 -Total Square Cm 5.04 3.99 -Photo Taken Yes -Epithelialization Small 1-33% -Tunneling No -Undermining/Tunneling No -Circular Undermining No -Exudate Amt Medium Large -Exudate Type Serosanguineous Serosanguineous -Wound Margin Flat & Intact Thickened -Granulation Amt Large (67-100%) Large (67-100%) -Granulation Quality Red Red -Slough/Fibrin Yes -Necrosis Amt Small (1-33%) Small (1-33%) -Necrotic Tissue Type Adherent Slough Adherent Slough -Structure Exposed N/A N/A -Texture (Kelsie-wound Skin Appearance) Assessed,Callus Callus, Localized Edema ,Rash -Moisture (Kelsie-wound Skin Appearance) Assessed,Dry/ Maceration Scaly -Color (Kelsie-wound Skin Appearance) Assessed No Abnormality -Temperature (Kelsie-wound Skin No Abnormality No Abnormality Appearance) (Pt Warm) (Pt Warm) -Tenderness on Palpation (Kelsie-wound No No Skin Appearance) -Ulcer Cleansing Rinsed/ Soap and Water Irrigated with Saline -Foul Odor after Cleansing No No -Anesthetic Used 5% Lidocaine 5% Lidocaine Gel Gel Lower Limb Edema Present NA WC - Nurse 2 - General Ulcer CM Notes Start: 02/08/23 09:06 Freq: Status: Active Protocol: Activity Type Activity Date Activity User E-sign Co-sign Detail Recorded Client Recorded Date Recorded By Document 02/08/23 14:17 PL [id number] 02/08/23 14:21 PL Document 02/15/23 12:20 PL [id number] 02/15/23 12:21 PL 02/08/23 02/15/23 14:17 12:20 Wound Center Nurse 2 2-right 5th metatarsal foot -Time 09:34 -Correct Patient Yes -Correct Side, Site, Position Yes -Correct Procedure Yes -Procedure Performed Yes -Type of Procedure Debridement -Clinical Debridement Subcutaneous -Tissue Removed Subcutaneous -Post Debridement (cm) - Length 0.5 -Post Debridement (cm) - Width 0.5 -Post Debridement (cm) - Depth 0.1 -Total Square (Post) (cm) 0.25 -Area of Debridement (cm) - Length 0.5 -Area of Debridement (cm) - Width 0.5 -Total Square (Area) (cm) 0.25 -Tunneling No -Undermining/Tunneling No -Circular Undermining No -Wound/Ulcer Outcome Not Healed -Ulcer Cleansing Rinsed/ Irrigated with Saline -Foul Odor after Cleansing No -Bioengineered Tissue No -Bleeding Controlled with Pressure -Treatment Response Procedure Tolerated Well -Debridement - Subq, 1st 20sq cm Yes #1 right plantar foot -Time 09:34 09:43 -Correct Patient Yes Yes -Correct Side, Site, Position Yes Yes -Correct Procedure Yes Yes -Procedure Performed Yes Yes -Type of Procedure Debridement Debridement -Clinical Debridement Subcutaneous Subcutaneous -Tissue Removed Subcutaneous Subcutaneous -Post Debridement (cm) - Length 2.1 2.3 -Post Debridement (cm) - Width 2.5 2.1 -Post Debridement (cm) - Depth 0.2 0.3 -Total Square (Post) (cm) 5.25 4.83 -Area of Debridement (cm) - Length 2.1 2.3 -Area of Debridement (cm) - Width 2.5 2.1 -Total Square (Area) (cm) 5.25 4.83 -Tunneling No No -Undermining/Tunneling No No -Circular Undermining No No -Wound/Ulcer Outcome Not Healed Not Healed -Ulcer Cleansing Rinsed/ Rinsed/ Irrigated with Irrigated with Saline Saline -Foul Odor after Cleansing No No -Bioengineered Tissue Yes Yes -Type of Bioengineered Tissue Epifix Mesh Epifix Mesh -Expiration Date 10/08/27 11/07/27 -Product Lot Number [id number] -Percent Used 100 100 -Bleeding Controlled with Pressure Pressure -Treatment Response Procedure Procedure Tolerated Well Tolerated Well -Debridement - Subq, 1st 20sq cm No No -Apply Skin Sub - 1st 25 sq cm - Legs 1 -Apply Skin Sub - 1st 25 sq cm - Feet 1 -Epifix Mesh (per sq cm) 11 11 Pain Scale: 0-10 Numeric Is Patient Pain Free? Yes Yes - Nurse 3 - General Ulcer D/C NN Start: 02/08/23 09:06 Freq: Status: Active Protocol: Activity Type Activity Date Activity User E-sign Co-sign Detail Recorded Client Recorded Date Recorded By Document 02/08/23 09:54 JF [id number] 02/08/23 09:55 Document 02/15/23 11:46 DL [id number] 02/15/23 11:48 DL 02/08/23 02/15/23 09:54 11:46 Wound Care Center Nurse 3 2-right 5th metatarsal foot -Ulcer Cleansing Rinsed/ Irrigated with Saline -Foul Odor after Cleansing No -Primary Dressing Covered/Secured with Dry Gauze & Roll Gauze, Secured with Tape #1 right plantar foot -Ulcer Cleansing Rinsed/ Not Cleansed Irrigated with Saline -Foul Odor after Cleansing No -Other Dressing EpiMesh -Primary Dressing Covered/Secured with Dry Gauze & Dry Gauze & Roll Gauze, Roll Gauze, Secured with Secured with Tape Tape -Other Covering ABD Treatment Response Procedure Tolerated Well Pain Scale: 0-10 Numeric Is Patient Pain Free? Yes Yes - Visit Discharge Discharge Condition Stable Stable Ambulatory Status Ambulatory Ambulatory Transportation Private Auto Private Auto Medication Reconcilliation completed & Yes provided to patient/care provider Clinical Summary of Care Provided Yes Facility Type Home Health Orders Sent Yes Assessment/Plan Assessment/Plan (1) Gastrocnemius equinus of right lower extremity: CODE(S): M21.861 - Other specified acquired deformities of right lower leg (2) Non-pressure chronic ulcer of other part of right foot with fat layer exposed: CODE(S): L97.512 - Non-pressure chronic ulcer of other part of right foot with fat layer exposed (3) Acquired hallux limitus of right foot: CODE(S): M20.5X1 - Other deformities of toe(s) (acquired), right foot (4) Hallux malleus of right foot: CODE(S): M20.31 - Hallux varus (acquired), right foot (5) Type 2 diabetes mellitus with foot ulcer: CODE(S): E11.621 - Type 2 diabetes mellitus with foot ulcer; L97.509 - Non- pressure chronic ulcer of other part of unspecified foot with unspecified severity (6) Diabetes mellitus with diabetic polyneuropathy: CODE(S): E11.42 - Type 2 diabetes mellitus with diabetic polyneuropathy (7) Diabetic foot ulcer associated with diabetes mellitus due to underlying condition: CODE(S): E08.621 - Diabetes mellitus due to underlying condition with footulcer; L97.509 - Non-pressure chronic ulcer of other part of unspecified foot with unspecified severity QUALIFIERS: Diabetic foot ulcer location: toe Laterality: right Non-pressure ulcer stage: with fat layer exposed Qualified Code(s): E08.621 - Diabetes mellitus due to underlying condition with foot ulcer; L97.512 - Non-pressure chronic ulcer of other part of right foot with fat layer exposed (8) Hypertension: CODE(S): I10 - Essential (primary) hypertension (9) Hyperlipidemia: CODE(S): E78.5 - Hyperlipidemia, unspecified (10) Morbid obesity with BMI of 40.0-44.9, adult: CODE(S): E66.01 - Morbid (severe) obesity due to excess calories; Z68.41 -Body mass index [BMI] 40.0-44.9, adult PLAN: Plan Patient seen and evaluated. Patient was ambulating CAM boot with plantar offloading padding today I have reviewed the LEAS performed 01/17/2023 demonstrating: Left foot triphasic DP and PT on Doppler; Indices left foot PT- 1.05. DP 1.03, Digit 0.91; right foot triphasic DP and PT on Doppler; Indices foot PT 1.10, DP 1.16, digit noncompressible. PVR diminished at ankle and digit on left with noncompressible digit right foot. Impression no evidence of significant occlusive arterial disease. Reviewed diagnostic data from 01/17/2023 demonstrating WBC of 8.7 Radiographic imaging obtained 01/17/2023 demonstrating no evidence of osteomyelitis. I have reviewed this imaging and concur with the radiographic read. I have reviewed her culture results which were obtained 01/17/2023 demonstrating: Providencia rettgeri, Staph aureus, Stap agalactaie, and Kocuria kristinae. She was prescribed Augmentin [address] Omar MD. 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 She did apple picking supervisor antibiotic and has completed antibiotic course. Ulceration underwent debridement as noted in the clinical panel above. Ulcerative site demonstrates healthy granular base with surrounding hyperkeratosis and maceration. No signs of infection. Ulceration measures 2.0 cm x 2.0 cm x 0.1 cm. EpiFix #3 applied to ulcerative base and dressed with Adaptic touch, anchored with Steri-Strips. Dry sterile dressing applied. She was instructed to change outer dressings as needed due to significant drainage. She was instructed to not get the site wet. Ulcerative site does demonstrate some reduction in size versus previous visit. She was instructed to stay off feet as much as possible to continue to aid in pressure reduction to the ulcerative site. Ulceration demonstrates no change in size with current offloading versus previous visit. Change of offloading padding was performed today due to significant drainage and wearing down of offloading padding. She was instructed to continue offloading in CAM boot for the right lower extremity with plantar offloading padding for first metatarsal head. She was instructed to weight-bear in the CAM boot at all times and not to wear flip-flops. She may remove the boot for shower purposes and sleeping. She voices understanding of this. Discussed that pressure reduction to the site is essential for her healing status. Discussed proper diabetic diet to maintain tight glycemic control. Last A1c 09/2022 was 7.0%. Discussed continued diet and exercise along with lifestyle modification/weight loss to aid in healthy lifestyle. Discussed importance of daily foot checks. Discussed adequate protein intake to aid in wound healing. She may take Jeremy supplementation to aid in wound healing. Discussed being diabetic she is never to go barefoot and should wear closed toed shoes at all times. Discussed with her socks is considered barefoot. Encouraged shoe gear to be worn at all times. She voices understanding of this today. Recommend diabetic shoes with plantar offloading padding once ulceration has healed. Discussed signs and symptoms of infection. Discussed if she notices redness about the ulcerative site that moves to the top of the foot and up the foot, purulent drainage from the wound site, increasing foul odor, or if she experiences fever greater than 101 degree, nausea, vomiting, chills that these are signs of a progressing infection and she should report to the ED for IV antibiotics. She voices understanding of this today. The following work up and care recommendations were made: Dressing: EpiFix, Adaptic touch, Steri-Strips, dry sterile dressing. Change outer dressings as needed. Wash: Do not get wet Tissue growth optimization: EpiFix Offload: CAM boot with plantar offloading padding Vascular: Palpable pedal pulses bilateral. LEAS obtained and reviewed from 01/17/2023 demonstrating no significant arterial occlusive disease. She is noted to have mild arterial disease of the popliteal/SFA bilateral. On Doppler DP and PT are triphasic bilateral. Edema: No edema noted Infection: No signs of infection Pain: May take [id number] Tylenol for discomfort Host factors: DM type II with peripheral polyneuropathy, hallux limitus right foot, hallux malleus right foot, morbid obesity, equinus deformity all complicated healing potential I answered all the patient's questions. To return to the wound healing center in 1 week or call sooner if the patient has any questions or concerns. 02/22/23 1159 <Electronically signed by Jared Gibbons DPM> Cosigner Signature (if applicable): CC: ~ Signed [facility] Work Phone: 1(162) 926-480608-10-2023 Progress note Author Jared Gibbons [facility] February 15, 2023 1:05pm Note Date/Time February 15, 2023 9: 30am [facility] [address] [place] [address] Progress Note - Wound Care 02/15/23 0930 MR#: [id number] Acct: [id number] Name: LUCRECIA HOU Rep #:[id number] : 1965 58 From: Jared worley DPM PCP: REX Castillo Status:REG RCR Location: History of Present Illness Date of Service: 02/15/23 Chief Complaint: Diabetic foot ulceration, right metatarsal-phalangeal joint, plantar surface History of Wound: This is a 58-year-old, morbidly-obese, diabetic female who presents with a largeulceration on the right great toe. The ulceration is located at the right firstmetatarsophalangeal joint, on the plantar surface. It has been present for approximately 4 months. According to the patient, it originated as a callus, and she ripped off the skin. She has been using Watkin's salve topically. 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 Her BMI is 41.8. Shedenies a history of smoking. She also denies a history of myocardial infarction, congestive heart failure, cerebrovascular accident, pulmonary disease,renal disease, and thyroid disease. Most recent hemoglobin A1c was 7.0 in September,. Laboratory studies obtained recently, dated January 03, 2023, are as follows: White blood count 8.7, hemoglobin 13.5, hematocrit 41.4, platelets 308,000, sodium 138, potassium 4.0, chloride 101, BUN 14, creatinine 0.65, glucose 140, calcium 9.3, bilirubin 0.40, AST 19, ALT 24, alkaline phosphatase 107, protein 7.8, albumin 3.3. Subjective Subjective This is a 58-year-old diabetic female who presents to the wound care center today for follow-up of a plantar first metatarsal head ulceration of the right foot. Graft in place the wound site. She states she did not change the outer dressings despite heavy drainage as she was scared to do this herself. She states she has continued to offload in the CAM boot with plantar offloading padding. She denies any constitutional symptoms. She denies further complaints. Objective Data Objective Data Vital Signs: Vital Signs Temp Pulse Resp BP 98.5 F 99 20 H 180/99 H 02/15/23 09:19 02/15/23 09:19 02/15/23 09:19 02/15/23 09:19 Weight: 110.677 kg Body Mass Index (BMI) 41.8 Physical Exam Const alert, oriented x3, no apparent distress and well nourished General Appearance: cooperative HEENT normocephalic Eyes General Eye: normal appearance of both eyes Neck General: normal visual inspection Lymph Lymphatic: no lymphadenopathy noted and no lymphedema noted Resp normal respiratory effort Cardio regular rate and regular rhythm Extremity normal capillary refill, no joint enlargement, no calf tenderness and no pedal edema Extremity Narrative: DP and PT pulses palpable bilateral. Capillary fill time to the digits less than 5 seconds bilateral. Hair growth diminished to the digits bilateral. Dermatological: Skin appears well-hydrated with normal turgor. Hyperkeratotic tissue Sub first metatarsal head of the left foot with no evidence of open wound. There is a large ulceration noted to the plantar aspect of the first metatarsal head of the right foot with surrounding hyperkeratotic tissue and maceration. Wound bed demonstrates granular tissue. No purulent drainage, no malodor, no palpable fluctuance/bogginess, no visible abscess formation, no lymphangitic streaking. Ulceration does not probe to bone. Musculoskeletal: Muscle strength 5 of 5 age-appropriate. She does demonstrate decreased range of motion of the first metatarsophalangeal joint bilateral without pain or crepitus. Decreased range of motion of the ankle joint in dorsiflexion with the knee extended without pain or crepitus bilateral. Hammertoe deformity of the right hallux. No pain to palpation about the ulcerative site plantar first metatarsal head right foot. Skin no rashes or lesions noted, skin turgor normal and no jaundice Neuro moves all extremities Neuro Narrative: Diminished protective sensation bilateral secondary to diabetic peripheral polyneuropathy Debridement Note Debridement Note Wound debrided: Subfirst metatarsal head Laterality: Right Wound Grade/Stage: Nichols stage I Type of Debridement: Excisional debridement Anesthesia Used: 5% Lidocaine Gel Depth: Down to and including healthy tissue and in the subcutaneous layer Percentage of wound debrided: 100 Instrument Used: 5mm curette Tissue Removed: Fibrous, devitalized subcutaneous, biofilm, slough Severity: Fat Layer Exposed Amount of bleeding with debridement: Mild Bleeding Controlled with: Compression and gauze Patient tolerated procedure: Patient tolerated procedure well Post-Debridement Measurements and Additional Note: Post-Debridement Measurements/Treatment - Nurse 1 - General Ulcer Assessment Start: 02/08/23 09:06 Freq: Status: Active Protocol: JAXSON Activity Type Activity Date Activity User E-sign Co-sign Detail Recorded Client Recorded Date Recorded By Document 02/08/23 09:08 BRYANT [id number] 02/08/23 09:17 Document 02/15/23 09:19 PL [id number] 02/15/23 09:24 PL 02/08/23 02/15/23 09:08 09:19 - Today's Visit Information Type of service Follow-up Visit Follow-up Visit (Physician/AUTOMOTIVE PROFESSIONAL (Physician/AUTOMOTIVE PROFESSIONAL ) ) Arrival Mode Ambulatory Ambulatory Transfer Assistance None Patient Identification Verified (Name & Yes Yes ) Patient Requires Transmission-Based No No Precautions Safety Precautions NA Height and Weight Body Mass Index (BMI) 41.8 41.8 BMI Classification Obese Obese Vital Signs Temperature (97.8 F-99.1 F) 96.7 F L 98.5 F Temperature Source Temporal Temporal Pulse Rate (60-100) 99 Respiratory Rate (12-18) 18 20 H Respiratory rate source Observation Blood Pressure (90/60-120/80) 180/99 H Blood Pressure Mean (mm Hg) 126 History Since Last Visit- (Skip if this is Patient's initial visit) Have you changed medications since your No last visit? Any new allergies or adverse reactions No Had a fall/change in ADL's that may No increase risk of falls Signs or symptoms of abuse and/or No neglect since last visit Have you been in the hospital since your No last visit? Has dressing in place as prescribed Yes Has compression in place as prescribed N/A Has offloadiing in place as prescribed Yes Experienced any changes in pain level or No management Pain Scale: 0-10 Numeric Is Patient Pain Free? Yes Yes WC - Nurse 1 - General Ulcer Measurement Start: 02/08/23 09:06 Freq: Status: Active Protocol: Activity Type Activity Date Activity User E-sign Co-sign Detail Recorded Client Recorded Date Recorded By Document 02/08/23 09:08 BRYANT [id number] 02/08/23 09:17 BRYANT 02/08/23 09:08 Wound Center Nurse 1 2-right 5th metatarsal foot -Combined with other wound No -Current Size (cm) - Length 0.4 -Current Size (cm) - Width 0.6 -Current Size (cm) - Depth 0.2 -Total Square Cm 0.24 -Photo Taken Yes -Epithelialization Small 1-33% -Tunneling No -Undermining/Tunneling No -Circular Undermining No -Exudate Amt Small -Exudate Type Serosanguineous -Wound Margin Flat & Intact -Granulation Amt Large (67-100%) -Granulation Quality Red -Slough/Fibrin Yes -Necrosis Amt Small (1-33%) -Necrotic Tissue Type Adherent Slough -Structure Exposed N/A -Texture (Kelsie-wound Skin Appearance) Assessed, Excoriation -Moisture (Kelsie-wound Skin Appearance) Assessed,Dry/ Scaly -Color (Kelsie-wound Skin Appearance) Assessed -Temperature (Kelsie-wound Skin No Abnormality Appearance) (Pt Warm) -Tenderness on Palpation (Kelsie-wound No Skin Appearance) -Foul Odor after Cleansing No -Anesthetic Used 5% Lidocaine Gel #1 right plantar foot -Combined with other wound No -Current Size (cm) - Length 2.1 -Current Size (cm) - Width 2.4 -Current Size (cm) - Depth 0.2 -Total Square Cm 5.04 -Photo Taken Yes -Epithelialization Small 1-33% -Tunneling No -Undermining/Tunneling No -Circular Undermining No -Exudate Amt Medium -Exudate Type Serosanguineous -Wound Margin Flat & Intact -Granulation Amt Large (67-100%) -Granulation Quality Red -Slough/Fibrin Yes -Necrosis Amt Small (1-33%) -Necrotic Tissue Type Adherent Slough -Structure Exposed N/A -Texture (Kelsie-wound Skin Appearance) Assessed,Callus -Moisture (Kelsie-wound Skin Appearance) Assessed,Dry/ Scaly -Color (Kelsie-wound Skin Appearance) Assessed -Temperature (Kelsie-wound Skin No Abnormality Appearance) (Pt Warm) -Tenderness on Palpation (Kelsie-wound No Skin Appearance) -Ulcer Cleansing Rinsed/ Irrigated with Saline -Foul Odor after Cleansing No -Anesthetic Used 5% Lidocaine Gel Lower Limb Edema Present NA WC - Nurse 2 - General Ulcer CM Notes Start: 02/08/23 09:06 Freq: Status: Active Protocol: Activity Type Activity Date Activity User E-sign Co-sign Detail Recorded Client Recorded Date Recorded By Document 02/08/23 14:17 PL [id number] 02/08/23 14:21 PL 02/08/23 14:17 Wound Center Nurse 2 2-right 5th metatarsal foot -Time 09:34 -Correct Patient Yes -Correct Side, Site, Position Yes -Correct Procedure Yes -Procedure Performed Yes -Type of Procedure Debridement -Clinical Debridement Subcutaneous -Tissue Removed Subcutaneous -Post Debridement (cm) - Length 0.5 -Post Debridement (cm) - Width 0.5 -Post Debridement (cm) - Depth 0.1 -Total Square (Post) (cm) 0.25 -Area of Debridement (cm) - Length 0.5 -Area of Debridement (cm) - Width 0.5 -Total Square (Area) (cm) 0.25 -Tunneling No -Undermining/Tunneling No -Circular Undermining No -Wound/Ulcer Outcome Not Healed -Ulcer Cleansing Rinsed/ Irrigated with Saline -Foul Odor after Cleansing No -Bioengineered Tissue No -Bleeding Controlled with Pressure -Treatment Response Procedure Tolerated Well -Debridement - Subq, 1st 20sq cm Yes #1 right plantar foot -Time 09:34 -Correct Patient Yes -Correct Side, Site, Position Yes -Correct Procedure Yes -Procedure Performed Yes -Type of Procedure Debridement -Clinical Debridement Subcutaneous -Tissue Removed Subcutaneous -Post Debridement (cm) - Length 2.1 -Post Debridement (cm) - Width 2.5 -Post Debridement (cm) - Depth 0.2 -Total Square (Post) (cm) 5.25 -Area of Debridement (cm) - Length 2.1 -Area of Debridement (cm) - Width 2.5 -Total Square (Area) (cm) 5.25 -Tunneling No -Undermining/Tunneling No -Circular Undermining No -Wound/Ulcer Outcome Not Healed -Ulcer Cleansing Rinsed/ Irrigated with Saline -Foul Odor after Cleansing No -Bioengineered Tissue Yes -Type of Bioengineered Tissue Epifix Mesh -Expiration Date 10/08/27 -Product Lot Number [id number] -Percent Used 100 -Bleeding Controlled with Pressure -Treatment Response Procedure Tolerated Well -Debridement - Subq, 1st 20sq cm No -Apply Skin Sub - 1st 25 sq cm - Feet 1 -Epifix Mesh (per sq cm) 11 Pain Scale: 0-10 Numeric Is Patient Pain Free? Yes WC - Nurse 3 - General Ulcer D/C NN Start: 02/08/23 09:06 Freq: Status: Active Protocol: Activity Type Activity Date Activity User E-sign Co-sign Detail Recorded Client Recorded Date Recorded By Document 02/08/23 09:54 BRYANT [id number] 02/08/23 09:55 BRYANT 02/08/23 09:54 Wound Care Center Nurse 3 2-right 5th metatarsal foot -Ulcer Cleansing Rinsed/ Irrigated with Saline -Foul Odor after Cleansing No -Primary Dressing Covered/Secured with Dry Gauze & Roll Gauze, Secured with Tape #1 right plantar foot -Ulcer Cleansing Rinsed/ Irrigated with Saline -Foul Odor after Cleansing No -Primary Dressing Covered/Secured with Dry Gauze & Roll Gauze, Secured with Tape Pain Scale: 0-10 Numeric Is Patient Pain Free? Yes WC - Visit Discharge Discharge Condition Stable Ambulatory Status Ambulatory Transportation Private Auto Medication Reconcilliation completed & Yes provided to patient/care provider Clinical Summary of Care Provided Yes Assessment/Plan Assessment/Plan (1) Gastrocnemius equinus of right lower extremity: CODE(S): M21.861 - Other specified acquired deformities of right lower leg (2) Non-pressure chronic ulcer of other part of right foot with fat layer exposed: CODE(S): L97.512 - Non-pressure chronic ulcer of other part of right foot with fat layer exposed (3) Acquired hallux limitus of right foot: CODE(S): M20.5X1 - Other deformities of toe(s) (acquired), right foot (4) Hallux malleus of right foot: CODE(S): M20.31 - Hallux varus (acquired), right foot (5) Type 2 diabetes mellitus with foot ulcer: CODE(S): E11.621 - Type 2 diabetes mellitus with foot ulcer; L97.509 - Non- pressure chronic ulcer of other part of unspecified foot with unspecified severity (6) Diabetes mellitus with diabetic polyneuropathy: CODE(S): E11.42 - Type 2 diabetes mellitus with diabetic polyneuropathy (7) Diabetic foot ulcer associated with diabetes mellitus due to underlying condition: CODE(S): E08.621 - Diabetes mellitus due to underlying condition with footulcer; L97.509 - Non-pressure chronic ulcer of other part of unspecified foot with unspecified severity QUALIFIERS: Diabetic foot ulcer location: toe Laterality: right Non-pressure ulcer stage: with fat layer exposed Qualified Code(s): E08.621 - Diabetes mellitus due to underlying condition with foot ulcer; L97.512 - Non-pressure chronic ulcer of other part of right foot with fat layer exposed (8) Hypertension: CODE(S): I10 - Essential (primary) hypertension (9) Hyperlipidemia: CODE(S): E78.5 - Hyperlipidemia, unspecified (10) Morbid obesity with BMI of 40.0-44.9, adult: CODE(S): E66.01 - Morbid (severe) obesity due to excess calories; Z68.41 -Body mass index [BMI] 40.0-44.9, adult PLAN: Plan Patient seen and evaluated. Patient was ambulating CAM boot with plantar offloading padding today I have reviewed the LEAS performed 01/17/2023 demonstrating: Left foot triphasic DP and PT on Doppler; Indices left foot PT- 1.05. DP 1.03, Digit 0.91; right foot triphasic DP and PT on Doppler; Indices foot PT 1.10, DP 1.16, digit noncompressible. PVR diminished at ankle and digit on left with noncompressible digit right foot. Impression no evidence of significant occlusive arterial disease. Reviewed diagnostic data from 01/17/2023 demonstrating WBC of 8.7 Radiographic imaging obtained 01/17/2023 demonstrating no evidence of osteomyelitis. I have reviewed this imaging and concur with the radiographic read. I have reviewed her culture results which were obtained 01/17/2023 demonstrating: Providencia rettgeri, Staph aureus, Stap agalactaie, and Kocuria kristinae. She was prescribed Augmentin [address] Omar MD. 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 She did apple picking supervisor antibiotic and has completed antibiotic course. Ulceration underwent debridement as noted in the clinical panel above. Ulcerative site demonstrates healthy granular base with surrounding hyperkeratosis and maceration. No signs of infection. Ulceration measures 2.3 cm x 2.1 cm x 0.2 cm. EpiFix #2 applied to ulcerative base and dressed with Adaptic touch, anchored with Steri-Strips. Dry sterile dressing applied. She was instructed to change outer dressings as needed due to significant drainage. She was instructed to not get the site wet. She was instructed to stay off feet as much as possible to continue to aid in pressure reduction to the ulcerative site. Ulceration demonstrates no change in size with current offloading versus previous visit. Change of offloading padding was performed today due to significant drainage and wearing down of offloading padding. She was instructed to continue offloading in CAM boot for the right lower extremity with plantar offloading padding for first metatarsal head. She was instructed to weight-bear in the CAM boot at all times and not to wear flip-flops. She may remove the boot for shower purposes and sleeping. She voices understanding of this. Discussed that pressure reduction to the site is essential for her healing status. Discussed proper diabetic diet to maintain tight glycemic control. Last A1c 09/2022 was 7.0%. Discussed continued diet and exercise along with lifestyle modification/weight loss to aid in healthy lifestyle. Discussed importance of daily foot checks. Discussed adequate protein intake to aid in wound healing. She may take Jeremy supplementation to aid in wound healing. Discussed being diabetic she is never to go barefoot and should wear closed toed shoes at all times. Discussed with her socks is considered barefoot. Encouraged shoe gear to be worn at all times. She voices understanding of this today. Recommend diabetic shoes with plantar offloading padding once ulceration has healed. Discussed signs and symptoms of infection. Discussed if she notices redness about the ulcerative site that moves to the top of the foot and up the foot, purulent drainage from the wound site, increasing foul odor, or if she experiences fever greater than 101 degree, nausea, vomiting, chills that these are signs of a progressing infection and she should report to the ED for IV antibiotics. She voices understanding of this today. The following work up and care recommendations were made: Dressing: EpiFix, Adaptic touch, Steri-Strips, dry sterile dressing. Change outer dressings as needed. Wash: Do not get wet Tissue growth optimization: EpiFix Offload: CAM boot with plantar offloading padding Vascular: Palpable pedal pulses bilateral. LEAS obtained and reviewed from 01/17/2023 demonstrating no significant arterial occlusive disease. She is noted to have mild arterial disease of the popliteal/SFA bilateral. On Doppler DP and PT are triphasic bilateral. Edema: No edema noted Infection: No signs of infection Pain: May take [id number] Tylenol for discomfort Host factors: DM type II with peripheral polyneuropathy, hallux limitus right foot, hallux malleus right foot, morbid obesity, equinus deformity all complicated healing potential I answered all the patient's questions. To return to the wound healing center in 1 week or call sooner if the patient has any questions or concerns. 02/15/23 1305 <Electronically signed by Jared Gibbons DPM> Cosigner Signature (if applicable): CC: ~ Signed [facility] Work Phone: 1(174) 875-276908-03-2023 Progress note Author Jared Gibbons [facility] February 08, 2023 11:05am Note Date/Time February 08, 2023 9:3 0am [facility] [address] [place] [address] Progress Note - Wound Care 02/08/2328 MR#: [id number] Acct: [id number] Name: LUCRECIA HOU Rep #:[id number] : 1965 58 From: Jared worley DPM PCP: REX Castillo Status:REG RCR Location: History of Present Illness Date of Service: 02/08/23 Chief Complaint: Diabetic foot ulceration, right metatarsal-phalangeal joint, plantar surface History of Wound: This is a 58-year-old, morbidly-obese, diabetic female who presents with a largeulceration on the right great toe. The ulceration is located at the right firstmetatarsophalangeal joint, on the plantar surface. It has been present for approximately 4 months. According to the patient, it originated as a callus, and she ripped off the skin. She has been using Watkin's salve topically. 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 Her BMI is 41.8. Shedenies a history of smoking. She also denies a history of myocardial infarction, congestive heart failure, cerebrovascular accident, pulmonary disease,renal disease, and thyroid disease. Most recent hemoglobin A1c was 7.0 in September,. Laboratory studies obtained recently, dated January 03, 2023, are as follows: White blood count 8.7, hemoglobin 13.5, hematocrit 41.4, platelets 308,000, sodium 138, potassium 4.0, chloride 101, BUN 14, creatinine 0.65, glucose 140, calcium 9.3, bilirubin 0.40, AST 19, ALT 24, alkaline phosphatase 107, protein 7.8, albumin 3.3. Subjective Subjective This is a 58-year-old diabetic female who presents to the wound care center today for follow-up of a plantar first metatarsal head ulceration of the right foot. She states she has been changing the dressings with dry gauze that she still has not receive the Katrina and dressing supplies by mail. She states she has continued to offload in the CAM boot with plantar offloading padding. She denies any constitutional symptoms. She denies further complaints. Objective Data Objective Data Vital Signs: Vital Signs Temp Pulse Resp BP 96.7 F L 75 18 139/96 H 02/08/23 09:08 02/06/23 00:27 02/08/23 09:08 02/06/23 00:27 Weight: 110.677 kg Body Mass Index (BMI) 41.8 Physical Exam Const alert, oriented x3, no apparent distress and well nourished General Appearance: cooperative HEENT normocephalic Eyes General Eye: normal appearance of both eyes Neck General: normal visual inspection Lymph Lymphatic: no lymphadenopathy noted and no lymphedema noted Resp normal respiratory effort Cardio regular rate and regular rhythm Extremity normal capillary refill, no joint enlargement, no calf tenderness and no pedal edema Extremity Narrative: DP and PT pulses palpable bilateral. Capillary fill time to the digits less than 5 seconds bilateral. Hair growth diminished to the digits bilateral. Dermatological: Skin appears well-hydrated with normal turgor. Hyperkeratotic tissue Sub first metatarsal head of the left foot with no evidence of open wound. There is a large ulceration noted to the plantar aspect of the first metatarsal head of the right foot with surrounding hyperkeratotic tissue and maceration. Wound bed demonstrates granular tissue. No purulent drainage, no malodor, no palpable fluctuance/bogginess, no visible abscess formation, no lymphangitic streaking. Ulceration does not probe to bone. Musculoskeletal: Muscle strength 5 of 5 age-appropriate. She does demonstrate decreased range of motion of the first metatarsophalangeal joint bilateral without pain or crepitus. Decreased range of motion of the ankle joint in dorsiflexion with the knee extended without pain or crepitus bilateral. Hammertoe deformity of the right hallux. No pain to palpation about the ulcerative site plantar first metatarsal head right foot. Skin no rashes or lesions noted, skin turgor normal and no jaundice Neuro moves all extremities Neuro Narrative: Diminished protective sensation bilateral secondary to diabetic peripheral polyneuropathy Debridement Note Debridement Note Wound debrided: Sub first metatarsal Laterality: Right Wound Grade/Stage: Nichols stage I Type of Debridement: Excisional debridement Anesthesia Used: 5% Lidocaine Gel Depth: Down to and including healthy tissue and in the subcutaneous layer Percentage of wound debrided: 100 Instrument Used: 5mm curette Tissue Removed: Fibrous, devitalized subcutaneous, biofilm, slough Severity: Fat Layer Exposed Amount of bleeding with debridement: Mild Bleeding Controlled with: Compression and gauze Patient tolerated procedure: Patient tolerated procedure well Post-Debridement Measurements and Additional Note: Post-Debridement Measurements/Treatment RADHA Boogie Nurse 1 - General Ulcer Assessment Start: 02/08/23 09:06 Freq: Status: Active Protocol: JAXSON Activity Type Activity Date Activity User E-sign Co-sign Detail Recorded Client Recorded Date Recorded By Document 02/08/23 09:08 BRYANT [id number] 02/08/23 09:17 BRYANT 02/08/23 09:08 RADHA - Today's Visit Information Type of service Follow-up Visit (Physician/AUTOMOTIVE PROFESSIONAL ) Arrival Mode Ambulatory Patient Identification Verified (Name & Yes ) Patient Requires Transmission-Based No Precautions Height and Weight Body Mass Index (BMI) 41.8 BMI Classification Obese Vital Signs Temperature (97.8 F-99.1 F) 96.7 F L Temperature Source Temporal Respiratory Rate (12-18) 18 Respiratory rate source Observation Pain Scale: 0-10 Numeric Is Patient Pain Free? Yes RADHA Boogie Nurse 1 - General Ulcer Measurement Start: 02/08/23 09:06 Freq: Status: Active Protocol: Activity Type Activity Date Activity User E-sign Co-sign Detail Recorded Client Recorded Date Recorded By Document 02/08/23 09:08 BRYANT [id number] 02/08/23 09:17 BRYANT 02/08/23 09:08 Wound Center Nurse 1 2-right 5th metatarsal foot -Combined with other wound No -Current Size (cm) - Length 0.4 -Current Size (cm) - Width 0.6 -Current Size (cm) - Depth 0.2 -Total Square Cm 0.24 -Photo Taken Yes -Epithelialization Small 1-33% -Tunneling No -Undermining/Tunneling No -Circular Undermining No -Exudate Amt Small -Exudate Type Serosanguineous -Wound Margin Flat & Intact -Granulation Amt Large (67-100%) -Granulation Quality Red -Slough/Fibrin Yes -Necrosis Amt Small (1-33%) -Necrotic Tissue Type Adherent Slough -Structure Exposed N/A -Texture (Kelsie-wound Skin Appearance) Assessed, Excoriation -Moisture (Kelsie-wound Skin Appearance) Assessed,Dry/ Scaly -Color (Kelsie-wound Skin Appearance) Assessed -Temperature (Kelsie-wound Skin No Abnormality Appearance) (Pt Warm) -Tenderness on Palpation (Kelsie-wound No Skin Appearance) -Foul Odor after Cleansing No -Anesthetic Used 5% Lidocaine Gel #1 right plantar foot -Combined with other wound No -Current Size (cm) - Length 2.1 -Current Size (cm) - Width 2.4 -Current Size (cm) - Depth 0.2 -Total Square Cm 5.04 -Photo Taken Yes -Epithelialization Small 1-33% -Tunneling No -Undermining/Tunneling No -Circular Undermining No -Exudate Amt Medium -Exudate Type Serosanguineous -Wound Margin Flat & Intact -Granulation Amt Large (67-100%) -Granulation Quality Red -Slough/Fibrin Yes -Necrosis Amt Small (1-33%) -Necrotic Tissue Type Adherent Slough -Structure Exposed N/A -Texture (Kelsie-wound Skin Appearance) Assessed,Callus -Moisture (Kelsie-wound Skin Appearance) Assessed,Dry/ Scaly -Color (Kelsie-wound Skin Appearance) Assessed -Temperature (Kelsie-wound Skin No Abnormality Appearance) (Pt Warm) -Tenderness on Palpation (Kelsie-wound No Skin Appearance) -Ulcer Cleansing Rinsed/ Irrigated with Saline -Foul Odor after Cleansing No -Anesthetic Used 5% Lidocaine Gel Lower Limb Edema Present NA Assessment/Plan Assessment/Plan (1) Gastrocnemius equinus of right lower extremity: CODE(S): M21.861 - Other specified acquired deformities of right lower leg (2) Non-pressure chronic ulcer of other part of right foot with fat layer exposed: CODE(S): L97.512 - Non-pressure chronic ulcer of other part of right foot with fat layer exposed (3) Acquired hallux limitus of right foot: CODE(S): M20.5X1 - Other deformities of toe(s) (acquired), right foot (4) Hallux malleus of right foot: CODE(S): M20.31 - Hallux varus (acquired), right foot (5) Type 2 diabetes mellitus with foot ulcer: CODE(S): E11.621 - Type 2 diabetes mellitus with foot ulcer; L97.509 - Non- pressure chronic ulcer of other part of unspecified foot with unspecified severity (6) Diabetes mellitus with diabetic polyneuropathy: CODE(S): E11.42 - Type 2 diabetes mellitus with diabetic polyneuropathy (7) Diabetic foot ulcer associated with diabetes mellitus due to underlying condition: CODE(S): E08.621 - Diabetes mellitus due to underlying condition with footulcer; L97.509 - Non-pressure chronic ulcer of other part of unspecified foot with unspecified severity QUALIFIERS: Diabetic foot ulcer location: toe Laterality: right Non-pressure ulcer stage: with fat layer exposed Qualified Code(s): E08.621 - Diabetes mellitus due to underlying condition with foot ulcer; L97.512 - Non-pressure chronic ulcer of other part of right foot with fat layer exposed (8) Hypertension: CODE(S): I10 - Essential (primary) hypertension (9) Hyperlipidemia: CODE(S): E78.5 - Hyperlipidemia, unspecified (10) Morbid obesity with BMI of 40.0-44.9, adult: CODE(S): E66.01 - Morbid (severe) obesity due to excess calories; Z68.41 -Body mass index [BMI] 40.0-44.9, adult PLAN: Plan Patient seen and evaluated. Patient was ambulating in flip-flops with no offloading to the wound site today. I have reviewed the LEAS performed 01/17/2023 demonstrating: Left foot triphasic DP and PT on Doppler; Indices left foot PT- 1.05. DP 1.03, Digit 0.91; right foot triphasic DP and PT on Doppler; Indices foot PT 1.10, DP 1.16, digit noncompressible. PVR diminished at ankle and digit on left with noncompressible digit right foot. Impression no evidence of significant occlusive arterial disease. Reviewed diagnostic data from 01/17/2023 demonstrating WBC of 8.7 Radiographic imaging obtained 01/17/2023 demonstrating no evidence of osteomyelitis. I have reviewed this imaging and concur with the radiographic read. I have reviewed her culture results which were obtained 01/17/2023 demonstrating: Providencia rettgeri, Staph aureus, Stap agalactaie, and Kocuria kristinae. She was prescribed Augmentin [address] Omar MD. 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 She did apple picking supervisor antibiotic and has completed antibiotic course. Ulceration underwent debridement as noted in the clinical panel above. Ulcerative site demonstrates healthy granular base with surrounding hyperkeratosis and maceration. No signs of infection. Ulceration measures 2.1 cm x 2.5 cm x 0.2 cm. EpiFix #1 applied to ulcerative base and dressed with Adaptic touch, anchored with Steri-Strips. Dry sterile dressing applied. She was instructed to change outer dressings as needed. She was instructed to not get the site wet. Ulceration demonstrates reduction in size with current offloading versus previous visit. She has been approved for advanced wound care product. She was instructed to continue offloading in CAM boot for the right lower extremity with plantar offloading padding for first metatarsal head. She was instructed to weight-bear in the CAM boot at all times and not to wear flip-flops. She may remove the boot for shower purposes and sleeping. She voices understanding of this. Discussed that pressure reduction to the site is essential for her healing status. Discussed proper diabetic diet to maintain tight glycemic control. Last A1c 09/2022 was 7.0%. Discussed continued diet and exercise along with lifestyle modification/weight loss to aid in healthy lifestyle. Discussed importance of daily foot checks. Discussed adequate protein intake to aid in wound healing. She may take Jeremy supplementation to aid in wound healing. Discussed being diabetic she is never to go barefoot and should wear closed toed shoes at all times. Discussed with her socks is considered barefoot. Encouraged shoe gear to be worn at all times. She voices understanding of this today. Recommend diabetic shoes with plantar offloading padding once ulceration has healed. Discussed signs and symptoms of infection. Discussed if she notices redness about the ulcerative site that moves to the top of the foot and up the foot, purulent drainage from the wound site, increasing foul odor, or if she experiences fever greater than 101 degree, nausea, vomiting, chills that these are signs of a progressing infection and she should report to the ED for IV antibiotics. She voices understanding of this today. The following work up and care recommendations were made: Dressing: EpiFix, Adaptic touch, Steri-Strips, dry sterile dressing. Change outer dressings as needed. Wash: Do not get wet Tissue growth optimization: EpiFix Offload: CAM boot with plantar offloading padding Vascular: Palpable pedal pulses bilateral. LEAS obtained and reviewed from 01/17/2023 demonstrating no significant arterial occlusive disease. She is noted to have mild arterial disease of the popliteal/SFA bilateral. On Doppler DP and PT are triphasic bilateral. Edema: No edema noted Infection: No signs of infection Pain: May take [id number] Tylenol for discomfort Host factors: DM type II with peripheral polyneuropathy, hallux limitus right foot, hallux malleus right foot, morbid obesity, equinus deformity all complicated healing potential I answered all the patient's questions. To return to the wound healing center in 1 week or call sooner if the patient has any questions or concerns. 02/08/23 1105 <Electronically signed by Jared Gibbons DPM> Cosigner Signature (if applicable): CC: ~ Signed [facility] Work Phone: 1(285) 943-688807-27-2023 Progress note Author Jared Gibbons [facility] February 01, 2023 11:45am Note Date/Time February 01, 2023 9:17 am [facility] [address] [place] [address] Progress Note - Wound Care 02/01/23 0917 MR#: [id number] Acct: [id number] Name: LUCRECIA HOU Rep #:[id number] : 1965 58 From: Jared worley DPM PCP: REX Castillo Status:REG RCR Location: History of Present Illness Date of Service: 02/01/23 Chief Complaint: Diabetic foot ulceration, right metatarsal-phalangeal joint, plantar surface History of Wound: This is a 58-year-old, morbidly-obese, diabetic female who presents with a largeulceration on the right great toe. The ulceration is located at the right firstmetatarsophalangeal joint, on the plantar surface. It has been present for approximately 4 months. According to the patient, it originated as a callus, and she ripped off the skin. She has been using Watkin's salve topically. 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 Her BMI is 41.8. Shedenies a history of smoking. She also denies a history of myocardial infarction, congestive heart failure, cerebrovascular accident, pulmonary disease,renal disease, and thyroid disease. Most recent hemoglobin A1c was 7.0 in September,. Laboratory studies obtained recently, dated January 03, 2023, are as follows: White blood count 8.7, hemoglobin 13.5, hematocrit 41.4, platelets 308,000, sodium 138, potassium 4.0, chloride 101, BUN 14, creatinine 0.65, glucose 140, calcium 9.3, bilirubin 0.40, AST 19, ALT 24, alkaline phosphatase 107, protein 7.8, albumin 3.3. Subjective Subjective This is a 58-year-old diabetic female who presents to the wound care center today for follow-up of a plantar first metatarsal head ulceration of the right foot. She states she has been changing the dressings with dry gauze that she did not receive the Katrina and dressing supplies by mail. She states she has continued to offload in the CAM boot with plantar offloading padding, however did walk into the wound care center today with flip-flops. She denies any constitutional symptoms. She denies further complaints. Objective Data Objective Data Vital Signs: Vital Signs Temp Pulse Resp BP O2 Del Method 96.1 F L 75 18 139/96 H Room Air 01/25/23 08:47 02/01/23 09:06 02/01/23 09:06 02/01/23 09:06 02/01/23 09:06 Oxygen Delivery Method Room Air Weight: 110.677 kg Body Mass Index (BMI) 41.8 Lab / Micro Data Micro: Microbiology 01/16/23 09:10 Wound Abcess - Right Foot Gram Stain - Final 01/16/23 09:10 Wound Abcess - Right Foot Wound Culture - Final Providencia rettgeri Staphylococcus aureus Streptococcus agalactiae (B) Kocuria kristinae 01/16/23 09:10 Wound Abcess - Right Foot Anaerobic Culture - Final Anaerobic cocci Physical Exam Const alert, oriented x3, no apparent distress and well nourished General Appearance: cooperative HEENT normocephalic Eyes General Eye: normal appearance of both eyes Neck General: normal visual inspection Lymph Lymphatic: no lymphadenopathy noted and no lymphedema noted Resp normal respiratory effort Cardio regular rate and regular rhythm Extremity normal capillary refill, no joint enlargement, no calf tenderness and no pedal edema Extremity Narrative: DP and PT pulses palpable bilateral. Capillary fill time to the digits less than 5 seconds bilateral. Hair growth diminished to the digits bilateral. Dermatological: Skin appears well-hydrated with normal turgor. Hyperkeratotic tissue Sub first metatarsal head of the left foot with no evidence of open wound. There is a large ulceration noted to the plantar aspect of the first metatarsal head of the right foot with surrounding hyperkeratotic tissue and maceration. Wound bed demonstrates granular tissue. No purulent drainage, no malodor, no palpable fluctuance/bogginess, no visible abscess formation, no lymphangitic streaking. Ulceration does not probe to bone. Musculoskeletal: Muscle strength 5 of 5 age-appropriate. She does demonstrate decreased range of motion of the first metatarsophalangeal joint bilateral without pain or crepitus. Decreased range of motion of the ankle joint in dorsiflexion with the knee extended without pain or crepitus bilateral. Hammertoe deformity of the right hallux. No pain to palpation about the ulcerative site plantar first metatarsal head right foot. Skin no rashes or lesions noted, skin turgor normal and no jaundice Neuro moves all extremities Neuro Narrative: Diminished protective sensation bilateral secondary to diabetic peripheral polyneuropathy Debridement Note Debridement Note Wound debrided: Sub first metatarsal head Laterality: Right Wound Grade/Stage: Nichols stage I Type of Debridement: Excisional debridement Anesthesia Used: 5% Lidocaine Gel Depth: Down to and including healthy tissue and in the subcutaneous layer Percentage of wound debrided: 100 Instrument Used: 5mm curette Tissue Removed: Fibrous, devitalized subcutaneous, biofilm, slough Severity: Fat Layer Exposed Amount of bleeding with debridement: Mild Bleeding Controlled with: Compression and gauze Patient tolerated procedure: Patient tolerated procedure well Post-Debridement Measurements and Additional Note: Post-Debridement Measurements/Treatment WC - Nurse 1 - General Ulcer Assessment Start: 01/16/23 08:24 Freq: Status: Active Protocol: JAXSON Activity Type Activity Date Activity User E-sign Co-sign Detail Recorded Client Recorded Date Recorded By Document 01/16/23 08:24 MW [id number] 01/16/23 08:42 MW Document 01/25/23 08:47 AK [id number] 01/25/23 08:53 AK Document 02/01/23 09:06 KW Desktop 02/01/23 09:15 KW 01/16/23 01/25/23 02/01/23 08:24 08:47 09:06 WC - Today's Visit Information Type of service Initial Visit Follow-up Visit Follow-up Visit (Physician/AUTOMOTIVE PROFESSIONAL (Physician/AUTOMOTIVE PROFESSIONAL ) ) Arrival Mode Ambulatory Ambulatory Ambulatory Transfer Assistance None Accompanied by self Patient Identification Verified (Name & Yes Yes Yes ) Patient Requires Transmission-Based No No No Precautions Safety Precautions NA Height and Weight Height 5 ft 4 in Weight 110.677 kg Weight in Pounds 244.0 lbs Body Mass Index (BMI) 41.8 41.8 41.8 BMI Classification Obese Obese Obese BSA - Jose Anotnio 2.13 Vital Signs Temperature (97.8 F-99.1 F) 96.9 F L 96.1 F L Temperature Source Temporal Temporal Pulse Rate (60-100) 85 75 Pulse Location Monitor Monitor Respiratory Rate (12-18) 16 18 Respiratory rate source Observation Observation Oxygen Delivery Method Room Air Room Air Blood Pressure (90/60-120/80) 120/78 139/96 H Blood Pressure Mean (mm Hg) 92 110 Source Monitor Monitor Position Sitting Semi-Fowlers Blood Pressure Location Left Arm Left Arm History Since Last Visit- (Skip if this is Patient's initial visit) Have you changed medications since your No No last visit? Any new allergies or adverse reactions No No Had a fall/change in ADL's that may No No increase risk of falls Signs or symptoms of abuse and/or No No neglect since last visit Have you been in the hospital since your No No last visit? Has dressing in place as prescribed Yes Yes Has compression in place as prescribed No Has offloadiing in place as prescribed N/A No Experienced any changes in pain level or No No management Left Footwear Regular Shoe Regular Shoe Regular Shoe Right Footwear Regular Shoe Regular Shoe Regular Shoe Pain Scale: 0-10 Numeric Is Patient Pain Free? Yes Yes Yes Lower Extremity Assessment/ Foot Assessment/ Toe Nail Assessment Right -Posterior Tibial Palpable Yes -Posterior Tibial Doppler Multiphasic -Dorsalis Pedis Palpable Yes -Dorsalis Pedis Doppler Monophasic -Extremity Color Normal -Hair Growth on Legs No -Hair Growth on Toes No -Temperature of Extremity Warm -Capillary Refill Less than 3 Seconds -Dependent Rubor No -Blanched when Elevated No -Lipodermatosclerosis No -Other Deformity No -Prior Foot Ulcer No -Charcot Joint No -Prior Amputation No -Thick No -Discolored No -Deformed No -Improper Length & Hygeine No Left -Posterior Tibial Palpable Yes -Posterior Tibial Doppler Multiphasic -Dorsalis Pedis Palpable Yes -Dorsalis Pedis Doppler Multiphasic -Extremity Color Normal -Hair Growth on Legs No -Hair Growth on Toes No -Temperature of Extremity Warm -Capillary Refill Less than 3 Seconds -Dependent Rubor No -Blanched when Elevated No -Lipodermatosclerosis No -Other Deformity No -Prior Foot Ulcer No -Charcot Joint No -Prior Amputation No -Thick No -Discolored No -Deformed No -Improper Length & Hygeine No Communication Assessment Preferred language Moldovan Able to Read Yes Able to Write Yes Communication Tools None Caregiver Communication Skills No Impairment Impairment Right Hearing Abillity Normal Left Hearing Abillity Normal Visual Assistive Devices Glasses Teaching Assessment Preferences Verbal,Written, Audio/Visual, Demonstration Barriers to Learning None Readiness To Learn Excellent Willingness to Engage in Self Management High Activies Readiness to Engage in Self Management High Activities Anxiety Level Calm Cooperation Cooperative Perception Coherent Interest in Health Problem Asks Questions Education Importance Acknowledges Need Does Patient Smoke tobacco or other Yes substances Smoking Status Never smoker Is Patient Diabetic Yes Functional Assessment Recent Decline in Ability to Perform Denies Any Declines Assistive Device With Patient No Culture/Scientology/Feather Shaper Cultural/Scientology Needs that may affect No Treatment Plan Would you allow our hospital test clerk to No meet you for the purpose of spiritual/ emotional support? Feather Shaper to contact place of scientology No Teaching: Wound Center *Welcome to the Wound Center -Person Taught Patient -Teaching Method Demonstration -Response to teaching Verbalize understanding WC - Nurse 1 - General Ulcer Measurement Start: 01/16/23 08:24 Freq: Status: Active Protocol: Activity Type Activity Date Activity User E-sign Co-sign Detail Recorded Client Recorded Date Recorded By Document 01/16/23 08:24 MW [id number] 01/16/23 08:42 MW Document 01/25/23 08:47 AK [id number] 01/25/23 08:53 AK Document 02/01/23 09:06 KW Desktop 02/01/23 09:15 KW 01/16/23 01/25/23 02/01/23 08:24 08:47 09:06 Wound Center Nurse 1 #1 right plantar foot -Combined with other wound No No -Current Size (cm) - Length 2.5 2 2.5 -Current Size (cm) - Width 2.5 3 2.4 -Current Size (cm) - Depth 0.3 0.2 0.2 -Total Square Cm 6.25 6 6.00 -Date of Last Picture (Recall this 01/16/23 01/25/23 field) -Photo Taken Yes Yes No -Epithelialization Small 1-33% -Tunneling No No No -Undermining/Tunneling No No No -Circular Undermining No No No -Change in Wound Grade/Stage No -Exudate Amt Medium Large Medium -Exudate Type Serosanguineous Serosanguineous Serosanguineous -Wound Margin Thickened Thickened & Distinct, Rolled Under Outline Attached -Granulation Amt Large (67-100%) Large (67-100%) Large (67-100%) -Granulation Quality [place] Red -Slough/Fibrin Yes Yes -Necrosis Amt Small (1-33%) Small (1-33%) Small (1-33%) -Necrotic Tissue Type Adherent Slough Adherent Slough Adherent Slough -Structure Exposed N/A N/A -Texture (Kelsie-wound Skin Appearance) Assessed,Callus Assessed,Callus Assessed ,Localized Edema -Moisture (Kelsie-wound Skin Appearance) Assessed,Dry/ No Abnormality, Assessed Scaly Assessed -Color (Kelsie-wound Skin Appearance) No Abnormality, No Abnormality, Assessed Assessed Assessed -Temperature (Kelsie-wound Skin No Abnormality No Abnormality No Abnormality Appearance) (Pt Warm) (Pt Warm) (Pt Warm) -Tenderness on Palpation (Kelsie-wound Yes No No Skin Appearance) -Ulcer Cleansing Rinsed/ Rinsed/ Wound Cleanser Irrigated with Irrigated with Saline Saline -Foul Odor after Cleansing No No No -Anesthetic Used 5% Lidocaine 5% Lidocaine 5% Lidocaine Gel Gel Gel Lower Limb Edema Present Yes NA Right Calf (cm) 46.5 Right Ankle (cm) 26.5 Left Calf (cm) 42.5 Left Ankle (cm) 23.5 WC - Nurse 2 - General Ulcer CM Notes Start: 01/16/23 08:24 Freq: Status: Active Protocol: Activity Type Activity Date Activity User E-sign Co-sign Detail Recorded Client Recorded Date Recorded By Document 01/16/23 11:38 PL [id number] 01/16/23 11:39 PL Document 01/25/23 12:12 PL [id number] 01/25/23 12:13 PL 01/16/23 01/25/23 11:38 12:12 Wound Center Nurse 2 #1 right plantar foot -Time 08:59 09:28 -Correct Patient Yes Yes -Correct Side, Site, Position Yes Yes -Correct Procedure Yes Yes -Procedure Performed Yes Yes -Type of Procedure Debridement Debridement -Clinical Debridement Subcutaneous Subcutaneous -Tissue Removed Subcutaneous Subcutaneous -Post Debridement (cm) - Length 2.5 2.5 -Post Debridement (cm) - Width 2.5 3.3 -Post Debridement (cm) - Depth 0.3 0.1 -Total Square (Post) (cm) 6.25 8.25 -Area of Debridement (cm) - Length 2.5 2.5 -Area of Debridement (cm) - Width 2.5 3.3 -Total Square (Area) (cm) 6.25 8.25 -Tunneling No No -Undermining/Tunneling No No -Circular Undermining No No -Wound/Ulcer Outcome Not Healed Not Healed -Ulcer Cleansing Rinsed/ Rinsed/ Irrigated with Irrigated with Saline Saline -Foul Odor after Cleansing No No -Bioengineered Tissue No No -Bleeding Controlled with Pressure Pressure -Treatment Response Procedure Procedure Tolerated Well Tolerated Well -Debridement - Subq, 1st 20sq cm Yes Yes Pain Scale: 0-10 Numeric Is Patient Pain Free? Yes Yes - Nurse 3 - General Ulcer D/C NN Start: 01/16/23 08:24 Freq: Status: Active Protocol: Activity Type Activity Date Activity User E-sign Co-sign Detail Recorded Client Recorded Date Recorded By Document 01/16/23 09:26 MW [id number] 01/16/23 09:29 MW Document 01/25/23 11:02 [id number] 01/25/23 11:03 JF 01/16/23 01/25/23 09:26 11:02 Wound Care Center Nurse 3 #1 right plantar foot -Ulcer Cleansing Rinsed/ Rinsed/ Irrigated with Irrigated with Saline Saline -Foul Odor after Cleansing No No -Negative Pressure Wound Therapy N/A N/A -Primary Dressing Applied Hysept ($) Promogran Katrina Matter -Other Dressing foam insert given for boot -Primary Dressing Covered/Secured with Dry Gauze, Dry Gauze, Secured with Secured with Tape Tape -Promogran Katrina Matter 2 Treatment Response Procedure Tolerated Well Pain Scale: 0-10 Numeric Is Patient Pain Free? Yes No Teaching: Wound Center Dressing Your Wound -Person Taught Patient -Teaching Method Discussion, Demonstration -Response to teaching Verbalize understanding WC - Visit Discharge Discharge Condition Stable Stable Ambulatory Status Ambulatory Ambulatory Transportation Private Auto Private Auto Accompanied by self Medication Reconcilliation completed & No Yes provided to patient/care provider Clinical Summary of Care Provided Yes Yes Assessment/Plan Assessment/Plan (1) Hypertension: CODE(S): I10 - Essential (primary) hypertension (2) Hyperlipidemia: CODE(S): E78.5 - Hyperlipidemia, unspecified (3) Morbid obesity with BMI of 40.0-44.9, adult: CODE(S): E66.01 - Morbid (severe) obesity due to excess calories; Z68.41 -Body mass index [BMI] 40.0-44.9, adult (4) Diabetes mellitus with diabetic polyneuropathy: CODE(S): E11.42 - Type 2 diabetes mellitus with diabetic polyneuropathy (5) Type 2 diabetes mellitus with foot ulcer: CODE(S): E11.621 - Type 2 diabetes mellitus with foot ulcer; L97.509 - Non- pressure chronic ulcer of other part of unspecified foot with unspecified severity (6) Hallux malleus of right foot: CODE(S): M20.31 - Hallux varus (acquired), right foot (7) Acquired hallux limitus of right foot: CODE(S): M20.5X1 - Other deformities of toe(s) (acquired), right foot (8) Non-pressure chronic ulcer of other part of right foot with fat layer exposed: CODE(S): L97.512 - Non-pressure chronic ulcer of other part of right foot with fat layer exposed (9) Gastrocnemius equinus of right lower extremity: CODE(S): M21.861 - Other specified acquired deformities of right lower leg PLAN: Plan Patient seen and evaluated. Patient was ambulating in flip-flops with no offloading to the wound site today. I have reviewed the LEAS performed 01/17/2023 demonstrating: Left foot triphasic DP and PT on Doppler; Indices left foot PT- 1.05. DP 1.03, Digit 0.91; right foot triphasic DP and PT on Doppler; Indices foot PT 1.10, DP 1.16, digit noncompressible. PVR diminished at ankle and digit on left with noncompressible digit right foot. Impression no evidence of significant occlusive arterial disease. Reviewed diagnostic data from 01/17/2023 demonstrating WBC of 8.7 Radiographic imaging obtained 01/17/2023 demonstrating no evidence of osteomyelitis. I have reviewed this imaging and concur with the radiographic read. I have reviewed her culture results which were obtained 01/17/2023 demonstrating: Providencia rettgeri, Staph aureus, Stap agalactaie, and Kocuria kristinae. She was prescribed Augmentin [address] Omar MD. 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 She did apple picking supervisor antibiotic and has began taking this. Discussed completing antibiotic to full completion. Ulceration underwent debridement as noted in the clinical panel above. Ulcerative site demonstrates healthy granular base with surrounding hyperkeratosis and maceration. No signs of infection. Ulceration measures 2.3 cm x 2.8 cm x 0.2 cm. Katrina and dry sterile dressing applied to ulcerative site. She is to change dressings daily. Ulceration demonstrates reduction in size with current offloading versus previous visit. We will look to obtain approval for application of advanced wound care product at next visit. She was instructed to continue offloading in CAM boot for the right lower extremity with plantar offloading padding for first metatarsal head. She was instructed to weight-bear in the CAM boot at all times and not to wear flip-flops. She may remove the boot for shower purposes and sleeping. She voices understanding of this. Discussed that pressure reduction to the site is essential for her healing status. Discussed proper diabetic diet to maintain tight glycemic control. Last A1c 09/2022 was 7.0%. Discussed continued diet and exercise along with lifestyle modification/weight loss to aid in healthy lifestyle. Discussed importance of daily foot checks. Discussed adequate protein intake to aid in wound healing. She may take Jeremy supplementation to aid in wound healing. Discussed being diabetic she is never to go barefoot and should wear closed toed shoes at all times. Discussed with her socks is considered barefoot. Encouraged shoe gear to be worn at all times. She voices understanding of this today. Recommend diabetic shoes with plantar offloading padding once ulceration has healed. Discussed signs and symptoms of infection. Discussed if she notices redness about the ulcerative site that moves to the top of the foot and up the foot, purulent drainage from the wound site, increasing foul odor, or if she experiences fever greater than 101 degree, nausea, vomiting, chills that these are signs of a progressing infection and she should report to the ED for IV antibiotics. She voices understanding of this today. The following work up and care recommendations were made: Dressing: Katrina and dry sterile dressing Wash: Soap and water Tissue growth optimization: Katrina Offload: Cam boot with plantar offloading padding Vascular: Palpable pedal pulses bilateral. LEAS obtained and reviewed from 01/17/2023 demonstrating no significant arterial occlusive disease. She is noted to have mild arterial disease of the popliteal/SFA bilateral. On Doppler DP and PT are triphasic bilateral. Edema: No edema noted Infection: No signs of infection Pain: May take [id number] Tylenol for discomfort Host factors: DM type II with peripheral polyneuropathy, hallux limitus right foot, hallux malleus right foot, morbid obesity, equinus deformity all complicated healing potential I answered all the patient's questions. To return to the wound healing center in 1 week or call sooner if the patient has any questions or concerns. 02/01/23 1145 <Electronically signed by Jared Gibbons DPM> Cosigner Signature (if applicable): CC: ~ Signed [facility] Work Phone: 1(910) 178-471207-20-2023 History and physical note Author Jared Gibbons [facility] January 25, 2023 6:49pm Note Date/Time January 25, 2023 10:2 1am [facility] [address] [place] [address] H&P Exam - Wound Care 01/25/23 1020 MR#: [id number] Acct: [id number] Name: LUCRECIA HOU Rep #:[id number] : 1965 58 From: Jared worley DPM PCP: REX Castillo Status:REG RCR Location: History of Present Illness Date of Service: 01/25/23 Chief Complaint: Diabetic foot ulceration, right metatarsal-phalangeal joint, plantar surface History of Wound: This is a 58-year-old, morbidly-obese, diabetic female who presents with a largeulceration on the right great toe. The ulceration is located at the right firstmetatarsophalangeal joint, on the plantar surface. It has been present for approximately 4 months. According to the patient, it originated as a callus, and she ripped off the skin. She has been using Watkin's salve topically. 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 Her BMI is 41.8. Shedenies a history of smoking. She also denies a history of myocardial infarction, congestive heart failure, cerebrovascular accident, pulmonary disease, renal disease, and thyroid disease. Most recent hemoglobin A1c was 7.0 in September,. Laboratory studies obtained recently, dated January 03, 2023, are as follows: White blood count 8.7, hemoglobin 13.5, hematocrit 41.4, platelets 308,000, sodium 138, potassium 4.0, chloride 101, BUN 14, creatinine 0.65, glucose 140, calcium 9.3, bilirubin 0.40, AST 19, ALT 24, alkaline phosphatase 107, protein 7.8, albumin 3.3. [facility] Medical History Diabetes mellitus Diabetic foot ulcer associated with diabetes mellitus due to underlying condition Hyperlipidemia Hypertension Morbid obesity with BMI of 40.0-44.9, adult Peripheral neuropathy Home Medications calcium carbonate 600 mg-vitamin D3 20 mcg (800 unit) chewable tablet (Caltrate 600 plus D) 1 tab PO DAILY 05/22/19 [History Last Taken Unknown] hydrochlorothiazide 25 mg tablet 25 mg PO DAILY 05/22/19 [History Last Taken Unknown] metoprolol tartrate 25 mg tablet 25 mg PO BID 05/22/19 [History Last Taken Unknown] kmvwnpms-wei-lfkjz ac 400 mcg-calcium carb 500 mg-vit K1 20 mcg tablet 1 tab PO DAILY 05/22/19 [History Last Taken Unknown] potassium chloride 20 mEq tablet,extended release(part/cryst) (Klor-Con M) 20 meq PO DAILY 05/22/19 [History Last Taken Unknown] simvastatin 20 mg tablet 20 mg PO QHS 05/22/19 [History Last Taken Unknown] Allergy/AdvReac Type Severity Reaction Status Date / Time No Known Allergies Allergy Verified 01/16/23 08:45 Social History Smoking Status: Never smoker ROS Constitutional Constitutional: Denies chills, fatigue or fever(s) Eyes Eyes: Denies blurry vision, double vision or erythema ENT HEENT: Denies dysphagia, nasal congestion or sore throat Cardiovascular Cardiovascular: Denies chest pain, claudication or palpitations Respiratory/Chest Respiratory/Chest: Denies cough, shortness of breath at rest or wheezing Gastrointestinal Gastrointestinal: Denies abdominal pain, constipation, diarrhea, nausea or vomiting Genitourinary Genitourinary: Denies dysuria, hematuria or urinary frequency Musculoskeletal Musculoskeletal: Denies joint pain, joint stiffness or joint swelling Integumentary Integumentary: Denies lesions, pruritus or rash Neurologic Neurologic: Denies dizziness, numbness or seizures Endocrine Endocrinology: Denies cold intolerance or heat intolerance Hematologic/Lymphatic Hematologic/Lymphatic: Denies easy bleeding or easy bruising Vital Signs Vital Signs Vital Signs: 01/25/23 08:47 Temperature 96.1 F L Temperature Source Temporal Weight Weight: 110.677 kg Body Mass Index (BMI) 41.8 Physical Exam Const alert, oriented x3, no apparent distress and well nourished General Appearance: cooperative HEENT normocephalic Eyes General Eye: normal appearance of both eyes Neck General: normal visual inspection Lymph Lymphatic: no lymphadenopathy noted and no lymphedema noted Resp normal respiratory effort Cardio regular rate and regular rhythm Extremity normal capillary refill, no joint enlargement, no calf tenderness and no pedal edema Extremity Narrative: DP and PT pulses palpable bilateral. Capillary fill time to the digits less than 5 seconds bilateral. Hair growth diminished to the digits bilateral. Dermatological: Skin appears well-hydrated with normal turgor. Hyperkeratotic tissue Sub first metatarsal head of the left foot with no evidence of open wound. There is a large ulceration noted to the plantar aspect of the first metatarsal head of the right foot with surrounding hyperkeratotic tissue and maceration. Wound bed demonstrates granular tissue. No purulent drainage, no malodor, no palpable fluctuance/bogginess, no visible abscess formation, no lymphangitic streaking. Ulceration does not probe to bone. Musculoskeletal: Muscle strength 5 of 5 age-appropriate. She does demonstrate decreased range of motion of the first metatarsophalangeal joint bilateral without pain or crepitus. Decreased range of motion of the ankle joint in dorsiflexion with the knee extended without pain or crepitus bilateral. Hammertoe deformity of the right hallux. No pain to palpation about the ulcerative site plantar first metatarsal head right foot. Skin no rashes or lesions noted, skin turgor normal and no jaundice Neuro moves all extremities Neuro Narrative: Diminished protective sensation bilateral secondary to diabetic peripheral polyneuropathy Debridement Note Debridement Note Wound debrided: Sub first metatarsal head Laterality: Right Wound Grade/Stage: Nichols stage I Type of Debridement: Excisional debridement Anesthesia Used: 5% Lidocaine Gel Depth: Down to and including healthy tissue and in the subcutaneous layer Percentage of wound debrided: 100 Instrument Used: 5mm curette Tissue Removed: Fibrous, devitalized subcutaneous, biofilm, slough Severity: Fat Layer Exposed Amount of bleeding with debridement: Mild Bleeding Controlled with: Compression and gauze Patient tolerated procedure: Patient tolerated procedure well Post-Debridement Measurements and Additional Note: Post-Debridement Measurements/Treatment - Nurse 1 - General Ulcer Assessment Start: 01/16/23 08:24 Freq: Status: Active Protocol: JAXSON Activity Type Activity Date Activity User E-sign Co-sign Detail Recorded Client Recorded Date Recorded By Document 01/16/23 08:24 MW [id number] 01/16/23 08:42 MW Document 01/25/23 08:47 AK [id number] 01/25/23 08:53 AK 01/16/23 01/25/23 08:24 08:47 - Today's Visit Information Type of service Initial Visit Follow-up Visit (Physician/AUTOMOTIVE PROFESSIONAL ) Arrival Mode Ambulatory Ambulatory Transfer Assistance None Accompanied by self Patient Identification Verified (Name & Yes Yes ) Patient Requires Transmission-Based No No Precautions Safety Precautions NA Height and Weight Height 5 ft 4 in Weight 110.677 kg Weight in Pounds 244.0 lbs Body Mass Index (BMI) 41.8 41.8 BMI Classification Obese Obese BSA - Jose Antonio 2.13 Vital Signs Temperature (97.8 F-99.1 F) 96.9 F L 96.1 F L Temperature Source Temporal Temporal Pulse Rate (60-100) 85 Pulse Location Monitor Respiratory Rate (12-18) 16 Respiratory rate source Observation Oxygen Delivery Method Room Air Blood Pressure (90/60-120/80) 120/78 Blood Pressure Mean 92 Source Monitor Position Sitting Blood Pressure Location Left Arm History Since Last Visit- (Skip if this is Patient's initial visit) Have you changed medications since your No last visit? Any new allergies or adverse reactions No Had a fall/change in ADL's that may No increase risk of falls Signs or symptoms of abuse and/or No neglect since last visit Have you been in the hospital since your No last visit? Has dressing in place as prescribed Yes Has offloadiing in place as prescribed N/A Experienced any changes in pain level or No management Left Footwear Regular Shoe Regular Shoe Right Footwear Regular Shoe Regular Shoe Pain Scale: 0-10 Numeric Is Patient Pain Free? Yes Yes Lower Extremity Assessment/ Foot Assessment/ Toe Nail Assessment Right -Posterior Tibial Palpable Yes -Posterior Tibial Doppler Multiphasic -Dorsalis Pedis Palpable Yes -Dorsalis Pedis Doppler Monophasic -Extremity Color Normal -Hair Growth on Legs No -Hair Growth on Toes No -Temperature of Extremity Warm -Capillary Refill Less than 3 Seconds -Dependent Rubor No -Blanched when Elevated No -Lipodermatosclerosis No -Other Deformity No -Prior Foot Ulcer No -Charcot Joint No -Prior Amputation No -Thick No -Discolored No -Deformed No -Improper Length & Hygeine No Left -Posterior Tibial Palpable Yes -Posterior Tibial Doppler Multiphasic -Dorsalis Pedis Palpable Yes -Dorsalis Pedis Doppler Multiphasic -Extremity Color Normal -Hair Growth on Legs No -Hair Growth on Toes No -Temperature of Extremity Warm -Capillary Refill Less than 3 Seconds -Dependent Rubor No -Blanched when Elevated No -Lipodermatosclerosis No -Other Deformity No -Prior Foot Ulcer No -Charcot Joint No -Prior Amputation No -Thick No -Discolored No -Deformed No -Improper Length & Hygeine No Communication Assessment Preferred language Moldovan Able to Read Yes Able to Write Yes Communication Tools None Caregiver Communication Skills No Impairment Impairment Right Hearing Abillity Normal Left Hearing Abillity Normal Visual Assistive Devices Glasses Teaching Assessment Preferences Verbal,Written, Audio/Visual, Demonstration Barriers to Learning None Readiness To Learn Excellent Willingness to Engage in Self Management High Activies Readiness to Engage in Self Management High Activities Anxiety Level Calm Cooperation Cooperative Perception Coherent Interest in Health Problem Asks Questions Education Importance Acknowledges Need Does Patient Smoke tobacco or other Yes substances Smoking Status Never smoker Is Patient Diabetic Yes Functional Assessment Recent Decline in Ability to Perform Denies Any Declines Assistive Device With Patient No Culture/Scientology/Feather Shaper Cultural/Scientology Needs that may affect No Treatment Plan Would you allow our hospital test clerk to No meet you for the purpose of spiritual/ emotional support? Feather Shaper to contact place of scientology No Teaching: Wound Center *Welcome to the Wound Center -Person Taught Patient -Teaching Method Demonstration -Response to teaching Verbalize understanding WC - Nurse 1 - General Ulcer Measurement Start: 01/16/23 08:24 Freq: Status: Active Protocol: Activity Type Activity Date Activity User E-sign Co-sign Detail Recorded Client Recorded Date Recorded By Document 01/16/23 08:24 MW [id number] 01/16/23 08:42 MW Document 01/25/23 08:47 AK [id number] 01/25/23 08:53 AK 01/16/23 01/25/23 08:24 08:47 Wound Center Nurse 1 #1 right plantar foot -Combined with other wound No No -Current Size (cm) - Length 2.5 2 -Current Size (cm) - Width 2.5 3 -Current Size (cm) - Depth 0.3 0.2 -Total Square Cm 6.25 6 -Date of Last Picture (Recall this 01/16/23 01/25/23 field) -Photo Taken Yes Yes -Epithelialization Small 1-33% -Tunneling No No -Undermining/Tunneling No No -Circular Undermining No No -Change in Wound Grade/Stage No -Exudate Amt Medium Large -Exudate Type Serosanguineous Serosanguineous -Wound Margin Thickened Thickened & Rolled Under -Granulation Amt Large (67-100%) Large (67-100%) -Granulation Quality [place] -Slough/Fibrin Yes Yes -Necrosis Amt Small (1-33%) Small (1-33%) -Necrotic Tissue Type Adherent Slough Adherent Slough -Structure Exposed N/A N/A -Texture (Kelsie-wound Skin Appearance) Assessed,Callus Assessed,Callus ,Localized Edema -Moisture (Kelsie-wound Skin Appearance) Assessed,Dry/ No Abnormality, Scaly Assessed -Color (Kelsie-wound Skin Appearance) No Abnormality, No Abnormality, Assessed Assessed -Temperature (Kelsie-wound Skin No Abnormality No Abnormality Appearance) (Pt Warm) (Pt Warm) -Tenderness on Palpation (Kelsie-wound Yes No Skin Appearance) -Ulcer Cleansing Rinsed/ Rinsed/ Irrigated with Irrigated with Saline Saline -Foul Odor after Cleansing No No -Anesthetic Used 5% Lidocaine 5% Lidocaine Gel Gel Lower Limb Edema Present Yes Right Calf (cm) 46.5 Right Ankle (cm) 26.5 Left Calf (cm) 42.5 Left Ankle (cm) 23.5 WC - Nurse 2 - General Ulcer CM Notes Start: 01/16/23 08:24 Freq: Status: Active Protocol: Activity Type Activity Date Activity User E-sign Co-sign Detail Recorded Client Recorded Date Recorded By Document 01/16/23 11:38 PL [id number] 01/16/23 11:39 PL 01/16/23 11:38 Wound Center Nurse 2 -Time 08:59 -Correct Patient Yes -Correct Side, Site, Position Yes -Correct Procedure Yes -Procedure Performed Yes -Type of Procedure Debridement -Clinical Debridement Subcutaneous -Tissue Removed Subcutaneous -Post Debridement (cm) - Length 2.5 -Post Debridement (cm) - Width 2.5 -Post Debridement (cm) - Depth 0.3 -Total Square (Post) (cm) 6.25 -Area of Debridement (cm) - Length 2.5 -Area of Debridement (cm) - Width 2.5 -Total Square (Area) (cm) 6.25 -Tunneling No -Undermining/Tunneling No -Circular Undermining No -Wound/Ulcer Outcome Not Healed -Ulcer Cleansing Rinsed/ Irrigated with Saline -Foul Odor after Cleansing No -Bioengineered Tissue No -Bleeding Controlled with Pressure -Treatment Response Procedure Tolerated Well -Debridement - Subq, 1st 20sq cm Yes Pain Scale: 0-10 Numeric Is Patient Pain Free? Yes - Nurse 3 - General Ulcer D/C NN Start: 01/16/23 08:24 Freq: Status: Active Protocol: Activity Type Activity Date Activity User E-sign Co-sign Detail Recorded Client Recorded Date Recorded By Document 01/16/23 09:26 MW [id number] 01/16/23 09:29 MW 01/16/23 09:26 Wound Care Center Nurse 3 #1 right plantar foot -Ulcer Cleansing Rinsed/ Irrigated with Saline -Foul Odor after Cleansing No -Negative Pressure Wound Therapy N/A -Primary Dressing Applied Hysept ($) -Primary Dressing Covered/Secured with Dry Gauze, Secured with Tape Treatment Response Procedure Tolerated Well Pain Scale: 0-10 Numeric Is Patient Pain Free? Yes Teaching: Wound Center Dressing Your Wound -Person Taught Patient -Teaching Method Discussion, Demonstration -Response to teaching Verbalize understanding WC - Visit Discharge Discharge Condition Stable Ambulatory Status Ambulatory Transportation Private Auto Accompanied by self Medication Reconcilliation completed & No provided to patient/care provider Clinical Summary of Care Provided Yes Assessment/Plan Assessment/Plan (1) Hypertension: CODE(S): I10 - Essential (primary) hypertension (2) Hyperlipidemia: CODE(S): E78.5 - Hyperlipidemia, unspecified (3) Morbid obesity with BMI of 40.0-44.9, adult: CODE(S): E66.01 - Morbid (severe) obesity due to excess calories; Z68.41 -Body mass index [BMI] 40.0-44.9, adult (4) Diabetes mellitus with diabetic polyneuropathy: CODE(S): E11.42 - Type 2 diabetes mellitus with diabetic polyneuropathy (5) Type 2 diabetes mellitus with foot ulcer: CODE(S): E11.621 - Type 2 diabetes mellitus with foot ulcer; L97.509 - Non- pressure chronic ulcer of other part of unspecified foot with unspecified severity (6) Hallux malleus of right foot: CODE(S): M20.31 - Hallux varus (acquired), right foot (7) Acquired hallux limitus of right foot: CODE(S): M20.5X1 - Other deformities of toe(s) (acquired), right foot (8) Non-pressure chronic ulcer of other part of right foot with fat layer exposed: CODE(S): L97.512 - Non-pressure chronic ulcer of other part of right foot with fat layer exposed (9) Gastrocnemius equinus of right lower extremity: CODE(S): M21.861 - Other specified acquired deformities of right lower leg PLAN: Plan Patient seen and evaluated. Patient was ambulating in flip-flops with no offloading to the wound site today. I have reviewed the LEAS performed 01/17/2023 demonstrating: Left foot triphasic DP and PT on Doppler; Indices left foot PT- 1.05. DP 1.03, Digit 0.91; right foot triphasic DP and PT on Doppler; Indices foot PT 1.10, DP 1.16, digit noncompressible. PVR diminished at ankle and digit on left with noncompressible digit right foot. Impression no evidence of significant occlusive arterial disease. Reviewed diagnostic data from 01/17/2023 demonstrating WBC of 8.7 Radiographic imaging obtained 01/17/2023 demonstrating no evidence of osteomyelitis. I have reviewed this imaging and concur with the radiographic read. I have reviewed her culture results which were obtained 01/17/2023 demonstrating: Providencia rettgeri, Staph aureus, Stap agalactaie, and Kocuria kristinae. She was prescribed Augmentin [address] Omar MD. 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 Discussed with her today to apple picking supervisor the antibiotic and begin taking this and finish to completion. She voices understanding of this. Ulceration underwent debridement as noted in the clinical panel above. Ulcerative site demonstrates healthy granular base with surrounding hyperkeratosis and maceration. No signs of infection. Ulceration measures 2.5 cm x 3.7 cm x 0.2 cm. Katrina and dry sterile dressing applied to ulcerative site. She is to change dressings daily. She was sent to office for dispense of CAM boot for the right lower extremity and did obtain the offloading boot today. Offloading pad was cut to be placed into the plantar side of the boot to effectively offload the Sub first metatarsal head. She was instructed to weight-bear in the cam boot at all times. She may remove the boot for shower purposes and sleeping. She voices understanding of this. Discussed that pressure reduction to the site is essential for her healing status. Discussed proper diabetic diet to maintain tight glycemic control. Last A1c 09/2022 was 7.0%. Discussed continued diet and exercise along with lifestyle modification/weight loss to aid in healthy lifestyle. Discussed importance of daily foot checks. Discussed adequate protein intake to aid in wound healing. She may take Jeremy supplementation to aid in wound healing. Discussed being diabetic she is never to go barefoot and should wear closed toed shoes at all times. Discussed with her socks is considered barefoot. Encouraged shoe gear to be worn at all times. She voices understanding of this today. Recommend diabetic shoes with plantar offloading padding once ulceration has healed. Discussed signs and symptoms of infection. Discussed if she notices redness about the ulcerative site that moves to the top of the foot and up the foot, purulent drainage from the wound site, increasing foul odor, or if she experiences fever greater than 101 degree, nausea, vomiting, chills that these are signs of a progressing infection and she should report to the ED for IV antibiotics. She voices understanding of this today. The following work up and care recommendations were made: Dressing: Katrina and dry sterile dressing Wash: Soap and water Tissue growth optimization: Katrina Offload: Cam boot with plantar offloading padding Vascular: Palpable pedal pulses bilateral. LEAS obtained and reviewed from 01/17/2023 demonstrating no significant arterial occlusive disease. She is noted to have mild arterial disease of the popliteal/SFA bilateral. On Doppler DP and PT are triphasic bilateral. Edema: No edema noted Infection: No signs of infection Pain: May take qngs-mri-kviomws Tylenol for discomfort Host factors: DM type II with peripheral polyneuropathy, hallux limitus right foot, hallux malleus right foot, morbid obesity, equinus deformity all complicated healing potential I answered all the patient's questions. To return to the wound healing center in 1 week or call sooner if the patient has any questions or concerns. 01/25/231848 <Electronically signed by Jared Gibbons DPM> Cosigner Signature (if applicable): CC: ~ Signed [facility] Work Phone: [phone] 770-404707-11-2023 History and physical note Author Lopez Nelson [facility] January 16, 2023 3:02pm Note Date/Time January 16, 2023 2:52 pm [facility] [address] [place] [address] H&P Exam - Wound Care 01/16/23 1445 MR#: [id number] Acct: [id number] Name: LUCRECIA HOU Rep #:[id number] : 1965 58 From: [place] Tsai PCP: REX Castillo Status:REG RCR Location: History of Present Illness Date of Service: 01/16/23 Chief Complaint: Diabetic foot ulceration, right metatarsal-phalangeal joint, plantar surface History of Wound: This is a 58-year-old, morbidly-obese, diabetic female who presents with a largeulceration on the right great toe. The ulceration is located at the right metatarso-phalangeal joint, on the plantar surface. It has been present for approximately 4 months. According to the patient, it originated as a callus, and she ripped off the skin. She has been using Watkin's salve topically. 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 Her BMI is 41.8. Shedenies a history of smoking. She also denies a history of myocardial infarction, congestive heart failure, cerebrovascular accident, pulmonary disease, renal disease, and thyroid disease. Most recent hemoglobin A1c was 7.0in September,. Laboratory studies obtained recently, dated January 03, 2023, are as follows: White blood count 8.7, hemoglobin 13.5, hematocrit 41.4, platelets 308,000, sodium 138, potassium 4.0, chloride 101, BUN 14, creatinine 0.65, glucose 140, calcium 9.3, bilirubin 0.40, AST 19, ALT 24, alkaline phosphatase 107, protein 7.8, albumin 3.3. [facility] Medical History Diabetes mellitus Diabetic foot ulcer associated with diabetes mellitus due to underlying condition Hyperlipidemia Hypertension Morbid obesity with BMI of 40.0-44.9, adult Peripheral neuropathy Home Medications calcium carbonate 600 mg-vitamin D3 20 mcg (800 unit) chewable tablet (Caltrate 600 plus D) 1 tab PO DAILY 05/22/19 [History Last Taken Unknown] hydrochlorothiazide 25 mg tablet 25 mg PO DAILY 05/22/19 [History Last Taken Unknown] metoprolol tartrate 25 mg tablet 25 mg PO BID 05/22/19 [History Last Taken Unknown] zqgnjtzb-wmu-dvutl ac 400 mcg-calcium carb 500 mg-vit K1 20 mcg tablet 1 tab PO DAILY 05/22/19 [History Last Taken Unknown] potassium chloride 20 mEq tablet,extended release(part/cryst) (Klor-Con M) 20 meq PO DAILY 05/22/19 [History Last Taken Unknown] simvastatin 20 mg tablet 20 mg PO QHS 05/22/19 [History Last Taken Unknown] Allergy/AdvReac Type Severity Reaction Status Date / Time No Known Allergies Allergy Verified 01/16/23 08:45 Social History Smoking Status: Never smoker Vital Signs Vital Signs Vital Signs: 01/16/23 08:24 Temperature 96.9 F L Temperature Source Temporal Pulse Rate 85 Respiratory Rate 16 Blood Pressure 120/78 Blood Pressure Mean 92 Blood Pressure Source Monitor Blood Pressure Position Sitting Blood Pressure Location Left Arm Oxygen Delivery Method Room Air Weight Weight: 244 lb Body Mass Index (BMI) 41.8 Physical Exam Const alert, oriented x3, no apparent distress and well nourished Constitutional Narrative: The patient is morbidly obese. General Appearance: cooperative, comfortable and well developed Orientation / Consciousness: awake, oriented to person, oriented to place and oriented to time Exam Limitations: no limitations HEENT normocephalic, head/scalp atraumatic and hearing grossly normal bilaterally Head and Scalp: normal to inspection, normocephalic and atraumatic External Ear: external ears normal Eyes PERRL and EOMs intact bilaterally General Eye: normal appearance of both eyes Resp normal respiratory effort, normal air movement, no retractions and no use of accessory muscles Effort and Inspection: able to speak in complete sentences Extremity no calf tenderness General Extremity: Negative for clubbing or cyanosis Skin Wound Narrative: A large ulceration is noted on the plantar aspect of the right great toe, at themetatarso-phalangeal joint. Dimensions are documented elsewhere. There is no obvious sign of infection or cellulitis. However, swab cultures were obtained for aerobic and anaerobic bacterial growth. A large amount of callus is noted to surround the open ulceration. There is a small amount of bioburden. Neuro oriented x3, CN's II-XII intact bilaterally and moves all extremities Sensorium / Orientation: awake, alert, oriented to person, oriented to place andoriented to time Psych Appearance: grossly normal and appropriate Attitude: calm Activity / Motor Behavior: appropriate eye contact Speech: normal speech Mood & Affect: euthymic mood Thought Process: normal thought process Thought Content: normal thought content Attention / Concentration: attention grossly intact Debridement Note Debridement Note Wound debrided: Right diabetic foot ulceration, right great toe. Laterality: Right Type of Debridement: Excisional debridement Anesthesia Used: 5% Lidocaine Gel Depth: Down to and including healthy tissue and in the subcutaneous layer Percentage of wound debrided: 100 Instrument Used: 5mm curette Tissue Removed: Bioburden and nonviable tissue; callus Severity: Fat Layer Exposed Amount of bleeding with debridement: Mild Bleeding Controlled with: Compression and gauze Patient tolerated procedure: Patient tolerated procedure well Debridement Free Text: An excisional debridement was performed, which was well-tolerated by the patient. A large amount of callus was noted surrounding the ulceration. Effort was made to remove as much of the callus as possible. Swab cultures were obtained for aerobic and anaerobic bacterial growth. Post-Debridement Measurements and Additional Note: Post-Debridement Measurements/Treatment WC - Nurse 1 - General Ulcer Assessment Start: 01/16/23 08:24 Freq: Status: Active Protocol: JAXSON Activity Type Activity Date Activity User E-sign Co-sign Detail Recorded Client Recorded Date Recorded By Document 01/16/23 08:24 MW [id number] 01/16/23 08:42 MW 01/16/23 08:24 - Today's Visit Information Type of service Initial Visit Arrival Mode Ambulatory Transfer Assistance None Accompanied by self Patient Identification Verified (Name & Yes ) Patient Requires Transmission-Based No Precautions Safety Precautions NA Height and Weight Height 5 ft 4 in Weight 244 lb Weight in Pounds 244.0 lbs Body Mass Index (BMI) 41.8 BMI Classification Obese BSA - Jose Antonio 2.13 Vital Signs Temperature (97.8 F-99.1 F) 96.9 F L Temperature Source Temporal Pulse Rate (60-100) 85 Pulse Location Monitor Respiratory Rate (12-18) 16 Respiratory rate source Observation Oxygen Delivery Method Room Air Blood Pressure (90/60-120/80) 120/78 Blood Pressure Mean 92 Source Monitor Position Sitting Blood Pressure Location Left Arm History Since Last Visit- (Skip if this is Patient's initial visit) Left Footwear Regular Shoe Right Footwear Regular Shoe Pain Scale: 0-10 Numeric Is Patient Pain Free? Yes Lower Extremity Assessment/ Foot Assessment/ Toe Nail Assessment Right -Posterior Tibial Palpable Yes -Posterior Tibial Doppler Multiphasic -Dorsalis Pedis Palpable Yes -Dorsalis Pedis Doppler Monophasic -Extremity Color Normal -Hair Growth on Legs No -Hair Growth on Toes No -Temperature of Extremity Warm -Capillary Refill Less than 3 Seconds -Dependent Rubor No -Blanched when Elevated No -Lipodermatosclerosis No -Other Deformity No -Prior Foot Ulcer No -Charcot Joint No -Prior Amputation No -Thick No -Discolored No -Deformed No -Improper Length & Hygeine No Left -Posterior Tibial Palpable Yes -Posterior Tibial Doppler Multiphasic -Dorsalis Pedis Palpable Yes -Dorsalis Pedis Doppler Multiphasic -Extremity Color Normal -Hair Growth on Legs No -Hair Growth on Toes No -Temperature of Extremity Warm -Capillary Refill Less than 3 Seconds -Dependent Rubor No -Blanched when Elevated No -Lipodermatosclerosis No -Other Deformity No -Prior Foot Ulcer No -Charcot Joint No -Prior Amputation No -Thick No -Discolored No -Deformed No -Improper Length & Hygeine No Communication Assessment Preferred language Moldovan Able to Read Yes Able to Write Yes Communication Tools None Caregiver Communication Skills No Impairment Impairment Right Hearing Abillity Normal Left Hearing Abillity Normal Visual Assistive Devices Glasses Teaching Assessment Preferences Verbal,Written, Audio/Visual, Demonstration Barriers to Learning None Readiness To Learn Excellent Willingness to Engage in Self Management High Activies Readiness to Engage in Self Management High Activities Anxiety Level Calm Cooperation Cooperative Perception Coherent Interest in Health Problem Asks Questions Education Importance Acknowledges Need Does Patient Smoke tobacco or other Yes substances Smoking Status Never smoker Is Patient Diabetic Yes Functional Assessment Recent Decline in Ability to Perform Denies Any Declines Assistive Device With Patient No Culture/Scientology/Feather Shaper Cultural/Scientology Needs that may affect No Treatment Plan Would you allow our hospital test clerk to No meet you for the purpose of spiritual/ emotional support? Feather Shaper to contact place of scientology No Teaching: Wound Center *Welcome to the Wound Center -Person Taught Patient -Teaching Method Demonstration -Response to teaching Verbalize understanding WC - Nurse 1 - General Ulcer Measurement Start: 01/16/23 08:24 Freq: Status: Active Protocol: Activity Type Activity Date Activity User E-sign Co-sign Detail Recorded Client Recorded Date Recorded By Document 01/16/23 08:24 MW [id number] 01/16/23 08:42 MW 01/16/23 08:24 Wound Center Nurse 1 #1 right plantar foot -Combined with other wound No -Current Size (cm) - Length 2.5 -Current Size (cm) - Width 2.5 -Current Size (cm) - Depth 0.3 -Total Square Cm 6.25 -Date of Last Picture (Recall this 01/16/23 field) -Photo Taken Yes -Epithelialization Small 1-33% -Tunneling No -Undermining/Tunneling No -Circular Undermining No -Exudate Amt Medium -Exudate Type Serosanguineous -Wound Margin Thickened -Granulation Amt Large (67-100%) -Granulation Quality [place] -Slough/Fibrin Yes -Necrosis Amt Small (1-33%) -Necrotic Tissue Type Adherent Slough -Structure Exposed N/A -Texture (Kelsie-wound Skin Appearance) Assessed,Callus ,Localized Edema -Moisture (Kelsie-wound Skin Appearance) Assessed,Dry/ Scaly -Color (Kelsie-wound Skin Appearance) No Abnormality, Assessed -Temperature (Kelsie-wound Skin No Abnormality Appearance) (Pt Warm) -Tenderness on Palpation (Kelsie-wound Yes Skin Appearance) -Ulcer Cleansing Rinsed/ Irrigated with Saline -Foul Odor after Cleansing No -Anesthetic Used 5% Lidocaine Gel Lower Limb Edema Present Yes Right Calf (cm) 46.5 Right Ankle (cm) 26.5 Left Calf (cm) 42.5 Left Ankle (cm) 23.5 WC - Nurse 2 - General Ulcer CM Notes Start: 01/16/23 08:24 Freq: Status: Active Protocol: Activity Type Activity Date Activity User E-sign Co-sign Detail Recorded Client Recorded Date Recorded By Document 01/16/23 11:38 PL [id number] 01/16/23 11:39 PL 01/16/23 11:38 Wound Center Nurse 2 #1 right plantar foot -Time 08:59 -Correct Patient Yes -Correct Side, Site, Position Yes -Correct Procedure Yes -Procedure Performed Yes -Type of Procedure Debridement -Clinical Debridement Subcutaneous -Tissue Removed Subcutaneous -Post Debridement (cm) - Length 2.5 -Post Debridement (cm) - Width 2.5 -Post Debridement (cm) - Depth 0.3 -Total Square (Post) (cm) 6.25 -Area of Debridement (cm) - Length 2.5 -Area of Debridement (cm) - Width 2.5 -Total Square (Area) (cm) 6.25 -Tunneling No -Undermining/Tunneling No -Circular Undermining No -Wound/Ulcer Outcome Not Healed -Ulcer Cleansing Rinsed/ Irrigated with Saline -Foul Odor after Cleansing No -Bioengineered Tissue No -Bleeding Controlled with Pressure -Treatment Response Procedure Tolerated Well -Debridement - Subq, 1st 20sq cm Yes Pain Scale: 0-10 Numeric Is Patient Pain Free? Yes - Nurse 3 - General Ulcer D/C NN Start: 01/16/23 08:24 Freq: Status: Active Protocol: Activity Type Activity Date Activity User E-sign Co-sign Detail Recorded Client Recorded Date Recorded By Document 01/16/23 09:26 MW [id number] 01/16/23 09:29 MW 01/16/23 09:26 Wound Care Center Nurse 3 #1 right plantar foot -Ulcer Cleansing Rinsed/ Irrigated with Saline -Foul Odor after Cleansing No -Negative Pressure Wound Therapy N/A -Primary Dressing Applied Hysept ($) -Primary Dressing Covered/Secured with Dry Gauze, Secured with Tape Treatment Response Procedure Tolerated Well Pain Scale: 0-10 Numeric Is Patient Pain Free? Yes Teaching: Wound Center Dressing Your Wound -Person Taught Patient -Teaching Method Discussion, Demonstration -Response to teaching Verbalize understanding WC - Visit Discharge Discharge Condition Stable Ambulatory Status Ambulatory Transportation Private Auto Accompanied by self Medication Reconcilliation completed & No provided to patient/care provider Clinical Summary of Care Provided Yes Assessment/Plan Assessment/Plan (1) Diabetic foot ulcer associated with diabetes mellitus due to underlying condition: CODE(S): E08.621 - Diabetes mellitus due to underlying condition with footulcer; L97.509 - Non-pressure chronic ulcer of other part of unspecified foot with unspecified severity QUALIFIERS: Diabetic foot ulcer location: toe Laterality: right Non-pressure ulcer stage: with fat layer exposed Qualified Code(s): E08.621 - Diabetes mellitus due to underlying condition with foot ulcer; L97.512 - Non-pressure chronic ulcer of other part of right foot with fat layer exposed (2) Hypertension: CODE(S): I10 - Essential (primary) hypertension (3) Diabetes mellitus: CODE(S): E11.9 - Type 2 diabetes mellitus without complications (4) Peripheral neuropathy: CODE(S): G62.9 - Polyneuropathy, unspecified (5) Hyperlipidemia: CODE(S): E78.5 - Hyperlipidemia, unspecified (6) Morbid obesity with BMI of 40.0-44.9, adult: CODE(S): E66.01 - Morbid (severe) obesity due to excess calories; Z68.41 -Body mass index [BMI] 40.0-44.9, adult PLAN: Plan This is a 58-year-old morbidly obese diabetic female who presents with a diabetic foot ulceration on the right foot. It is located at the right metatarso- phalangeal joint. It is rather large in size, and extends into the subcutaneous adipose layer. Swab cultures have been obtained for aerobic and anaerobic bacterial growth. Results will be awaited, and further management will be based upon culture results. Offloading measures have been discussed with the patient. It is likely that she will require diabetic shoes or tailored inserts to her existing shoes. We are to seek a consult with the Podiatry service to assist in management. Offloading measures have been explained in detail. An x-ray will be obtained of the right foot to determine whether the ulceration extends into underlying bony structures. We are to obtain a noninvasive lower extremity arterial study, to assess arterial circulation in the lower extremities. Collagen hydrogel will be initiated for application topically. The patient has been advised of the appropriate means of application. The patient return for evaluation in 1 week, with arrangements for the patient to be evaluated by the Podiatry service for further management recommendations. The patient has been advised to optimize her glycemic control, optimize her nutritional intake, and to lose weight. Total time: 52 minutes 01/16/23 1502 <Electronically signed by Lopez Nelson MD> Cosigner Signature (if applicable): CC: ~ Signed [facility] Work Phone: Evaluation note* Diagnosis Onset Date Resolution Status Acquired hallux limitus of right foot acute Diabetes mellitus acute Diabetes mellitus with diabetic polyneuropathy acute [id number] acute Gastrocnemius equinus of right lower extremity acute Hallux malleus of right foot acute Hyperlipidemia acute Morbid obesity with BMI of 40.0-44.9, adult acute Peripheral neuropathy acute Type 2 diabetes mellitus with foot ulcer acute Hypertension chronic Non-pressure chronic ulcer o f other part of right foot with fat layer exposed chronic [facility] Work Phone: Evaluation note* Diagnosis Onset Date Resolution Status Acquired hallux limitus of right foot acute Diabetes mellitus acute Diabetes mellitus with diabetic polyneuropathy acute [id number] acute Gastrocnemius equinus of right lower extremity acute Hallux malleus of right foot acute Hyperlipidemia acute Morbid obesity with BMI of 40.0-44.9, adult acute Peripheral neuropathy acute Type 2 diabetes mellitus with foot ulcer acute Hypertension chronic Non-pressure chronic ulcer o f other part of right foot with fat layer exposed chronic Acquired hallux limitus of right foot acute Diabetes mellitus with diabetic polyneuropathy acute [id number] acute Gastrocnemius equinus of right lower extremity acute Hallux malleus of right foot acute Hyperlipidemia acute Morbid obesity with BMI of 40.0-44.9, adult acute Type 2 diabetes mellitus with foot ulcer acute Hypertension chronic Non-pressure chronic ulcer o f other part of right foot with fat layer exposed chronic [facility] Work Phone: Evaluation note* Diagnosis Onset Date Resolution Status Acquired hallux limitus of right foot acute Diabetes mellitus acute Diabetes mellitus with diabetic polyneuropathy acute [id number] acute Gastrocnemius equinus of right lower extremity acute Hallux malleus of right foot acute Hyperlipidemia acute Morbid obesity with BMI of 40.0-44.9, adult acute Peripheral neuropathy acute Type 2 diabetes mellitus with foot ulcer acute Hypertension chronic Non-pressure chronic ulcer o f other part of right foot with fat layer exposed chronic Acquired hallux limitus of right foot acute Diabetes mellitus with diabetic polyneuropathy acute [id number] acute Gastrocnemius equinus of right lower extremity acute Hallux malleus of right foot acute Hyperlipidemia acute Morbid obesity with BMI of 40.0-44.9, adult acute Type 2 diabetes mellitus with foot ulcer acute Hypertension chronic Non-pressure chronic ulcer o f other part of right foot with fat layer exposed chronic Acquired hallux limitus of right foot acute Diabetes mellitus with diabetic polyneuropathy acute Gastrocnemius equinus of right lower extremity acute Hallux malleus of right foot acute Hyperlipidemia acute Morbid obesity with BMI of 40.0-44.9, adult acute Type 2 diabetes mellitus with foot ulcer acute Hypertension chronic Non-pressure chronic ulcer o f other part of right foot with fat layer exposed chronic [facility] Work Phone: Evaluation note* Diagnosis Onset Date Resolution Status Acquired hallux limitus of right foot acute Diabetes mellitus acute Diabetes mellitus with diabetic polyneuropathy acute [id number] acute Gastrocnemius equinus of right lower extremity acute Hallux malleus of right foot acute Hyperlipidemia acute Morbid obesity with BMI of 40.0-44.9, adult acute Peripheral neuropathy acute Type 2 diabetes mellitus with foot ulcer acute Hypertension chronic Non-pressure chronic ulcer o f other part of right foot with fat layer exposed chronic Acquired hallux limitus of right foot acute Diabetes mellitus with diabetic polyneuropathy acute [id number] acute Gastrocnemius equinus of right lower extremity acute Hallux malleus of right foot acute Hyperlipidemia acute Morbid obesity with BMI of 40.0-44.9, adult acute Type 2 diabetes mellitus with foot ulcer acute Hypertension chronic Non-pressure chronic ulcer o f other part of right foot with fat layer exposed chronic Acquired hallux limitus of right foot acute Diabetes mellitus with diabetic polyneuropathy acute Gastrocnemius equinus of right lower extremity acute Hallux malleus of right foot acute Hyperlipidemia acute Morbid obesity with BMI of 40.0-44.9, adult acute Type 2 diabetes mellitus with foot ulcer acute Hypertension chronic Non-pressure chronic ulcer o f other part of right foot with fat layer exposed chronic Acquired hallux limitus of right foot acute Diabetes mellitus with diabetic polyneuropathy acute [id number] acute Gastrocnemius equinus of right lower extremity acute Hallux malleus of right foot acute Hyperlipidemia acute Morbid obesity with BMI of 40.0-44.9, adult acute Type 2 diabetes mellitus with foot ulcer acute Hypertension chronic Non-pressure chronic ulcer o f other part of right foot with fat layer exposed chronic [facility] Work Phone: Evaluation note* Diagnosis Onset Date Resolution Status Acquired hallux limitus of right foot acute Diabetes mellitus with diabetic polyneuropathy acute [id number] acute Gastrocnemius equinus of right lower extremity acute Hallux malleus of right foot acute Hyperlipidemia acute Morbid obesity with BMI of 40.0-44.9, adult acute Type 2 diabetes mellitus with foot ulcer acute Hypertension chronic Non-pressure chronic ulcer o f other part of right foot with fat layer exposed chronic Acquired hallux limitus of right foot acute Diabetes mellitus with diabetic polyneuropathy acute Gastrocnemius equinus of right lower extremity acute Hallux malleus of right foot acute Hyperlipidemia acute Morbid obesity with BMI of 40.0-44.9, adult acute Type 2 diabetes mellitus with foot ulcer acute Hypertension chronic Non-pressure chronic ulcer o f other part of right foot with fat layer exposed chronic Acquired hallux limitus of right foot acute Diabetes mellitus with diabetic polyneuropathy acute [id number] acute Gastrocnemius equinus of right lower extremity acute Hallux malleus of right foot acute Hyperlipidemia acute Morbid obesity with BMI of 40.0-44.9, adult acute Type 2 diabetes mellitus with foot ulcer acute Hypertension chronic Non-pressure chronic ulcer o f other part of right foot with fat layer exposed chronic Acquired hallux limitus of right foot acute Diabetes mellitus with diabetic polyneuropathy acute [id number] acute Gastrocnemius equinus of right lower extremity acute Hallux malleus of right foot acute Hyperlipidemia acute Morbid obesity with BMI of 40.0-44.9, adult acute Peripheral neuropathy acute Type 2 diabetes mellitus with foot ulcer acute Hypertension chronic Non-pressure chronic ulcer o f other part of right foot with fat layer exposed chronic [facility] Work Phone: Evaluation note* Diagnosis Onset Date Resolution Status Acquired hallux limitus of right foot acute Diabetes mellitus with diabetic polyneuropathy acute Gastrocnemius equinus of right lower extremity acute Hallux malleus of right foot acute Hyperlipidemia acute Morbid obesity with BMI of 40.0-44.9, adult acute Type 2 diabetes mellitus with foot ulcer acute Hypertension chronic Non-pressure chronic ulcer o f other part of right foot with fat layer exposed chronic Acquired hallux limitus of right foot acute Diabetes mellitus with diabetic polyneuropathy acute [id number] acute Gastrocnemius equinus of right lower extremity acute Hallux malleus of right foot acute Hyperlipidemia acute Morbid obesity with BMI of 40.0-44.9, adult acute Type 2 diabetes mellitus with foot ulcer acute Hypertension chronic Non-pressure chronic ulcer o f other part of right foot with fat layer exposed chronic Acquired hallux limitus of right foot acute Diabetes mellitus with diabetic polyneuropathy acute [id number] acute Gastrocnemius equinus of right lower extremity acute Hallux malleus of right foot acute Hyperlipidemia acute Morbid obesity with BMI of 40.0-44.9, adult acute Peripheral neuropathy acute Type 2 diabetes mellitus with foot ulcer acute Hypertension chronic Non-pressure chronic ulcer o f other part of right foot with fat layer exposed chronic Acquired hallux limitus of right foot acute Diabetes mellitus with diabetic polyneuropathy acute Gastrocnemius equinus of right lower extremity acute Hallux malleus of right foot acute Morbid obesity with BMI of 40.0-44.9, adult acute Type 2 diabetes mellitus with foot ulcer acute Hypertension chronic Non-pressure chronic ulcer o f other part of right foot with fat layer exposed chronic [facility] Work Phone: Evaluation note* Diagnosis Onset Date Resolution Status Acquired hallux limitus of right foot acute Diabetes mellitus with diabetic polyneuropathy acute [id number] acute Gastrocnemius equinus of right lower extremity acute Hallux malleus of right foot acute Hyperlipidemia acute Morbid obesity with BMI of 40.0-44.9, adult acute Type 2 diabetes mellitus with foot ulcer acute Hypertension chronic Non-pressure chronic ulcer o f other part of right foot with fat layer exposed chronic Acquired hallux limitus of right foot acute Diabetes mellitus with diabetic polyneuropathy acute [id number] acute Gastrocnemius equinus of right lower extremity acute Hallux malleus of right foot acute Hyperlipidemia acute Morbid obesity with BMI of 40.0-44.9, adult acute Peripheral neuropathy acute Type 2 diabetes mellitus with foot ulcer acute Hypertension chronic Non-pressure chronic ulcer o f other part of right foot with fat layer exposed chronic Acquired hallux limitus of right foot acute Diabetes mellitus with diabetic polyneuropathy acute Gastrocnemius equinus of right lower extremity acute Hallux malleus of right foot acute Morbid obesity with BMI of 40.0-44.9, adult acute Type 2 diabetes mellitus with foot ulcer acute Hypertension chronic Non-pressure chronic ulcer o f other part of right foot with fat layer exposed chronic Acquired hallux limitus of right foot acute Diabetes mellitus with diabetic polyneuropathy acute Gastrocnemius equinus of right lower extremity acute Hallux malleus of right foot acute Morbid obesity with BMI of 40.0-44.9, adult acute Type 2 diabetes mellitus with foot ulcer acute Hypertension chronic Non-pressure chronic ulcer o f other part of right foot with fat layer exposed chronic [facility] Work Phone: Evaluation note* Diagnosis Onset Date Resolution Status Acquired hallux limitus of right foot acute Diabetes mellitus with diabetic polyneuropathy acute [id number] acute Gastrocnemius equinus of right lower extremity acute Hallux malleus of right foot acute Hyperlipidemia acute Morbid obesity with BMI of 40.0-44.9, adult acute Peripheral neuropathy acute Type 2 diabetes mellitus with foot ulcer acute Hypertension chronic Non-pressure chronic ulcer o f other part of right foot with fat layer exposed chronic Acquired hallux limitus of right foot acute Diabetes mellitus with diabetic polyneuropathy acute Gastrocnemius equinus of right lower extremity acute Hallux malleus of right foot acute Morbid obesity with BMI of 40.0-44.9, adult acute Type 2 diabetes mellitus with foot ulcer acute Hypertension chronic Non-pressure chronic ulcer o f other part of right foot with fat layer exposed chronic Acquired hallux limitus of right foot acute Diabetes mellitus with diabetic polyneuropathy acute Gastrocnemius equinus of right lower extremity acute Hallux malleus of right foot acute Morbid obesity with BMI of 40.0-44.9, adult acute Type 2 diabetes mellitus with foot ulcer acute Hypertension chronic Non-pressure chronic ulcer o f other part of right foot with fat layer exposed chronic Acquired hallux limitus of right foot acute Diabetes mellitus with diabetic polyneuropathy acute Gastrocnemius equinus of right lower extremity acute Hallux malleus of right foot acute Morbid obesity with BMI of 40.0-44.9, adult acute Type 2 diabetes mellitus with foot ulcer acute Hypertension chronic Non-pressure chronic ulcer o f other part of right foot with fat layer exposed chronic [facility] Work Phone: Summary Purpose Family History No Family History Records FoundNo Family History Records Found Advance Directives No Advanced Directives Records FoundNo Advanced Directives Records Found Chief Complaint and Reason for Visit Chief Complaint SCREENING WOUND Reason for Visit Acquired hallux limi tus of right foot Diabetes mellitus Diabetes mellitus with diabetic polyneuropathy [id number] 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 Hyperlipidemia Morbid obesity with BMI of 40.0-44.9, adult Peripheral neuropathy Type 2 diabetes mellitus with foot ulcer Hypertension Non-pressure chronic ulcer of other part of right foot with fat layer exposed Chief Complaint SCREENING WOUND WOUND Reason for Visit Acquired hallux limi tus of right foot Diabetes mellitus Diabetes mellitus with diabetic polyneuropathy [id number] 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 Hyperlipidemia Morbid obesity with BMI of 40.0-44.9, adult Peripheral neuropathy Type 2 diabetes mellitus with foot ulcer Hypertension Non-pressure chronic ulcer of other part of right foot with fat layer exposed Acquired hallux limitus of right foot Diabetes mellitus with diabetic polyneuropathy [id number] 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 Hyperlipidemia Morbid obesity with BMI of 40.0-44.9, adult Type 2 diabetes mellitus with foot ulcer Hypertension Non-pressure chronic ulcer of other part of right foot with fat layer exposed Chief Complaint WOUND WOUND WOUND Reason for Visit Acquired hallux limi tus of right foot Diabetes mellitus Diabetes mellitus with diabetic polyneuropathy [id number] 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 Hyperlipidemia Morbid obesity with BMI of 40.0-44.9, adult Peripheral neuropathy Type 2 diabetes mellitus with foot ulcer Hypertension Non-pressure chronic ulcer of other part of right foot with fat layer exposed Acquired hallux limitus of right foot Diabetes mellitus with diabetic polyneuropathy [id number] 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 Hyperlipidemia Morbid obesity with BMI of 40.0-44.9, adult Type 2 diabetes mellitus with foot ulcer Hypertension Non-pressure chronic ulcer of other part of right foot with fat layer exposed Acquired hallux limitus of right foot Diabetes mellitus with diabetic polyneuropathy 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 Hyperlipidemia Morbid obesity with BMI of 40.0-44.9, adult Type 2 diabetes mellitus with foot ulcer Hypertension Non-pressure chronic ulcer of other part of right foot with fat layer exposed Chief Complaint WOUND WOUND WOUND WOUND Reason for Visit Acquired hallux limi tus of right foot Diabetes mellitus Diabetes mellitus with diabetic polyneuropathy [id number] 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 Hyperlipidemia Morbid obesity with BMI of 40.0-44.9, adult Peripheral neuropathy Type 2 diabetes mellitus with foot ulcer Hypertension Non-pressure chronic ulcer of other part of right foot with fat layer exposed Acquired hallux limitus of right foot Diabetes mellitus with diabetic polyneuropathy [id number] 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 Hyperlipidemia Morbid obesity with BMI of 40.0-44.9, adult Type 2 diabetes mellitus with foot ulcer Hypertension Non-pressure chronic ulcer of other part of right foot with fat layer exposed Acquired hallux limitus of right foot Diabetes mellitus with diabetic polyneuropathy 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 Hyperlipidemia Morbid obesity with BMI of 40.0-44.9, adult Type 2 diabetes mellitus with foot ulcer Hypertension Non-pressure chronic ulcer of other part of right foot with fat layer exposed Acquired hallux limitus of right foot Diabetes mellitus with diabetic polyneuropathy [id number] 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 Hyperlipidemia Morbid obesity with BMI of 40.0-44.9, adult Type 2 diabetes mellitus with foot ulcer Hypertension Non-pressure chronic ulcer of other part of right foot with fat layer exposed Chief Complaint WOUND WOUND WOUND WOUND Reason for Visit Acquired hallux limi tus of right foot Diabetes mellitus with diabetic polyneuropathy [id number] 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 Hyperlipidemia Morbid obesity with BMI of 40.0-44.9, adult Type 2 diabetes mellitus with foot ulcer Hypertension Non-pressure chronic ulcer of other part of right foot with fat layer exposed Acquired hallux limitus of right foot Diabetes mellitus with diabetic polyneuropathy 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 Hyperlipidemia Morbid obesity with BMI of 40.0-44.9, adult Type 2 diabetes mellitus with foot ulcer Hypertension Non-pressure chronic ulcer of other part of right foot with fat layer exposed Acquired hallux limitus of right foot Diabetes mellitus with diabetic polyneuropathy [id number] 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 Hyperlipidemia Morbid obesity with BMI of 40.0-44.9, adult Type 2 diabetes mellitus with foot ulcer Hypertension Non-pressure chronic ulcer of other part of right foot with fat layer exposed Acquired hallux limitus of right foot Diabetes mellitus with diabetic polyneuropathy [id number] 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 Hyperlipidemia Morbid obesity with BMI of 40.0-44.9, adult Peripheral neuropathy Type 2 diabetes mellitus with foot ulcer Hypertension Non-pressure chronic ulcer of other part of right foot with fat layer exposed Chief Complaint WOUND WOUND WOUND WOUND Reason for Visit Acquired hallux limi tus of right foot Diabetes mellitus with diabetic polyneuropathy 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 Hyperlipidemia Morbid obesity with BMI of 40.0-44.9, adult Type 2 diabetes mellitus with foot ulcer Hypertension Non-pressure chronic ulcer of other part of right foot with fat layer exposed Acquired hallux limitus of right foot Diabetes mellitus with diabetic polyneuropathy [id number] 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 Hyperlipidemia Morbid obesity with BMI of 40.0-44.9, adult Type 2 diabetes mellitus with foot ulcer Hypertension Non-pressure chronic ulcer of other part of right foot with fat layer exposed Acquired hallux limitus of right foot Diabetes mellitus with diabetic polyneuropathy [id number] 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 Hyperlipidemia Morbid obesity with BMI of 40.0-44.9, adult Peripheral neuropathy Type 2 diabetes mellitus with foot ulcer Hypertension Non-pressure chronic ulcer of other part of right foot with fat layer exposed Acquired hallux limitus of right foot Diabetes mellitus with diabetic polyneuropathy 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 Morbid obesity with BMI of 40.0-44.9, adult Type 2 diabetes mellitus with foot ulcer Hypertension Non-pressure chronic ulcer of other part of right foot with fat layer exposed Chief Complaint WOUND WOUND WOUND WOUND Reason for Visit Acquired hallux limi tus of right foot Diabetes mellitus with diabetic polyneuropathy [id number] 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 Hyperlipidemia Morbid obesity with BMI of 40.0-44.9, adult Type 2 diabetes mellitus with foot ulcer Hypertension Non-pressure chronic ulcer of other part of right foot with fat layer exposed Acquired hallux limitus of right foot Diabetes mellitus with diabetic polyneuropathy [id number] 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 Hyperlipidemia Morbid obesity with BMI of 40.0-44.9, adult Peripheral neuropathy Type 2 diabetes mellitus with foot ulcer Hypertension Non-pressure chronic ulcer of other part of right foot with fat layer exposed Acquired hallux limitus of right foot Diabetes mellitus with diabetic polyneuropathy 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 Morbid obesity with BMI of 40.0-44.9, adult Type 2 diabetes mellitus with foot ulcer Hypertension Non-pressure chronic ulcer of other part of right foot with fat layer exposed Acquired hallux limitus of right foot Diabetes mellitus with diabetic polyneuropathy 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 Morbid obesity with BMI of 40.0-44.9, adult Type 2 diabetes mellitus with foot ulcer Hypertension Non-pressure chronic ulcer of other part of right foot with fat layer exposed Chief Complaint WOUND WOUND WOUND WOUND Reason for Visit Acquired hallux limi tus of right foot Diabetes mellitus with diabetic polyneuropathy [id number] 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 Hyperlipidemia Morbid obesity with BMI of 40.0-44.9, adult Peripheral neuropathy Type 2 diabetes mellitus with foot ulcer Hypertension Non-pressure chronic ulcer of other part of right foot with fat layer exposed Acquired hallux limitus of right foot Diabetes mellitus with diabetic polyneuropathy 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 Morbid obesity with BMI of 40.0-44.9, adult Type 2 diabetes mellitus with foot ulcer Hypertension Non-pressure chronic ulcer of other part of right foot with fat layer exposed Acquired hallux limitus of right foot Diabetes mellitus with diabetic polyneuropathy 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 Morbid obesity with BMI of 40.0-44.9, adult Type 2 diabetes mellitus with foot ulcer Hypertension Non-pressure chronic ulcer of other part of right foot with fat layer exposed Acquired hallux limitus of right foot Diabetes mellitus with diabetic polyneuropathy 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 Holden Mendez MD Family Provider Active REX Castillo Primary Care Provider Active Team Status: Inactive Member Role Status Dates Dr. Holden Mendez MD Primary Care Provider Active REX Wilson Attending Provider, Referring Provi bina Active Team Status: Inactive Member Role Status Dates REX Castillo Primary Care Provide r, Attending Provider, Referring Provider Active Team Status: Inactive Member Role Status Dates REX Castillo Primary Care Provider Active Dr. Ana Valdovinos DO Referring Provider Active DELFINA EscobarM Attending Provider Active Goals (unrecognized section and content) Goals may be documented in a n alternate sectionGoals may be documented in an alternate sectionGoals may be documented in an alternate sectionGoals may be documented in an alternate sectionGoals may be documented in an alternate sectionGoals may be documented in an alternate sectionGoals may be documented in an alternate sectionGoals may be documented in an alternate section FOR RECORDS PERTAINING TO PATIENTS WHO ARE OR HAVE BEEN ENROLLED IN A CHEMICAL DEPENDENCY/SUBSTANCEABUSE PROGRAM, SOME INFORMATION MAY BE OMITTED. This clinical summary was aggregated from multiple sources. Caution should be exercised in using it in the provision of clinical care. This summary normalizes information from multiple sources, and as a consequence, information in this document may materially change the coding, format and clinical context of patient data. In addition, data may be omitted in some cases. CLINICAL DECISIONS SHOULD BE BASED ON THE PRIMARY CLINICAL RECORDS. [facility]. provides no warranty or guarantee of the accuracy or completeness of information in this document.
== END | disposition home or self-care (01) ==
LOC: OPBI 07:45
PROVIDERS: PCP Nurse Practitioner Family; Referring Provider Nurse Practitioner Family; Visit Provider Nurse Practitioner Family
DX: Z12.31 Encounter for screening mammogram for malignant neoplasm of breast (principal)
CPT/HCPCS: 77063; 77067